=== PATIENT | male | born 1940 | race Caucasian/White ===

== ENCOUNTER 2016-07-12 19:30 | Inpatient (IN) | payer OTHER, MEDICARE ==
[~2016-07-12] VITALS: Ht 175.3 cm; Wt 63.6 kg
[2016-07-12] VITALS (14 sets, daily range): BP systolic 78–216; BP diastolic 50–109; PULSE 105–147; RESP 15–20; TEMP 99.7; O2SAT 89–100
[~2016-07-12 19:30] MED LIST: AMLO10 PO; ATOR20TA15 PO; CLOP75TA PO; ENOX40P SQ; HYDR-3516 PO; MISC-163; NOVOLOGP2 SQ; NYST1000 SWISH-SWAL; TAMS5CAP PO; WALKER WHEELS/F1 MIS
[2016-07-12] MEDS ORDERED: SODIUM CHLOR 0.9% 1000 ML INJ 1,000 ML IV ONE ×4 (20:00→22:45)
[2016-07-12] MEDS ORDERED: VANCOMYCIN INJ 1,000 MG in SODIUM CHLOR 0.9% 250 ML INJ 250 ML IV ONE (20:00)
[2016-07-12] MEDS ORDERED: CEFEPIME INJ 2,000 MG in SODIUM CHLORIDE 0.9% INJ 100 ML IV ONE (20:00)
--- NOTE | 2016-07-12 21:08 | RADRPT ---
EXAM DATE/TIME: 07/12/2016 20:23 [facility] COMPARISON: CHEST SINGLE AP, May 26, 2016, 14:49. INDICATIONS : Cough. MEDICAL HISTORY : None. SURGICAL HISTORY : CABG. ENCOUNTER: Initial ACUITY: 1 day PAIN SCORE: Non-responsive. LOCATION: Bilateral chest FINDINGS: Postop changes of CABG. Calcified granulomata in the right lung. No effusion. No pneumothorax. No foc al consolidation. CONCLUSION: 1. Postoperative CABG. Remote granulomatous disease. No effusion or pneumothorax. Tony Galloway MD on July 12, 2016 at 21:06 Board Certified Radiologist. This report was verified electronically.
--- NOTE | 2016-07-12 21:13 | RADRPT ---
EXAM DATE/TIME: 07/12/2016 20:17 [facility] COMPARISON: No previous studies available for comparison. INDICATIONS : Left pelvic pain, unknown accident. MEDICAL HISTORY : None. SURGICAL HISTORY : Left hip replacement. ENCOUNTER: Initial ACUITY: 1 day PAIN SCORE: Non-responsive. LOCATION: Left pelvis. FINDINGS: A single frontal view of the pelvis demonstrates no evidence of fracture. There is previous left hip replacement. No dislocation. CONCLUSION: 1. Postoperative left total hip replacement. Osteopenia. No acute bony abnormalities. Tony Galloway MD on July 12, 2016 at 21:11 Board Certified Radiologist. This report was verified electronically.
[2016-07-12] MEDS ORDERED: SODIUM CHLORIDE 0.9% FLUSH 5 ML FLUSH IVF PRN ×2 (21:15→22:45)
[2016-07-12] MEDS ORDERED: DILTIAZEM HCL 25 MG/5 ML VIAL IV PUSH ONE (21:15)
[2016-07-12] MEDS ORDERED: DILTIAZEM INJ 125 MG in SODIUM CHLORIDE 0.9% INJ 100 ML IV SCH (21:15)
--- NOTE | 2016-07-12 21:16 | PD ---
HPI Chief Complaint: Skin Problem Time Seen by Provider: 19:58 Travel History International Travel<30 days: No Contact w/Intl Traveler<30days: No Traveled to known affect area: No History of Present Illness HPI 76-year-old male presents to the emergency Department from home by EMS transport for generalized weakness progressively worsening decubitus ulcers and wound at prior left hip replacement site. No report of fever or chills. Poor oral intake. Patient reportedly had a hip fracture 05/08/16 with hip repair and was also identified with that hospitalization have acute renal failure patient improved postoperatively with normalization of renal function and was discharged to a rehabilitation facility where he stayed for prostate one month but reportedly due to insurance issues was not able to stay at the rehabilitation facility any longer and was discharged home. Patient was discharged home and has had no in office post hospitalization or post rehabilitation evaluation by his managing physicians. Patient has had a home health nurse managing with wound care the pressure sores affecting both heels left hip and left elbow. Home health nurses noted that the pressure sores are not improving with current therapy and large eschar are noted at the sites with focal petechia and purpura at the left hip postsurgical site. Patient is a diabetic, hypertension, CAD with 6 vessel CABG, and dementia. At time of discharge from the hospital patient weight was 72 kg. PFSH Past Medical History Hx Anticoagulant Therapy: Yes Arthritis: No Asthma: No Autoimmune Disease: No Blood Disorders: No Anxiety: No Depression: No Heart Rhythm Problems: No Cancer: No Cardiac Catheterization: Yes Cardiovascular Problems: Yes (CAD) High Cholesterol: No Chemotherapy: No Chest Pain: No Congestive Heart Failure: No COPD: No Cerebrovascular Accident: Yes (TIA) Dementia: Yes Diabetes: Yes Patient Takes Glucophage: No Diminished Hearing: Yes Endocrine: No GERD: No Glaucoma: No Genitourinary: No Headaches: No Hepatitis: No Hiatal Hernia: No Heparin Induced Thrombocytopen: No Hypertension: Yes Immune Disorder: No Kidney Stones: No Musculoskeletal: Yes (LEFT HIP SURGERY) Neurologic: Yes Psychiatric: No Reproductive: No Respiratory: No Integumentary: Yes (FAILED OUTPATIENT WOUND CARE) Myocardial Infarction: No Radiation Therapy: No Renal Failure: No Seizures: No Sickle Cell Disease: No Sleep Apnea: No Thyroid Disease: No Ulcer: No Past Surgical History Abdominal Surgery: No AICD: No Cardiac Surgery: Yes (cabg x 6 vessel 2003) Coronary Artery Bypass Graft: Yes Ear Surgery: No Endocrine Surgery: No Eye Surgery: No Genitourinary Surgery: No Gynecologic Surgery: No Joint Replacement: No Oral Surgery: Yes Pacemaker: No Thoracic Surgery: Yes Other Surgery: Yes (vascular left groin 2016 ) Social History Alcohol Use: No Tobacco Use: No Substance Use: No Allergies-Medications (Allergen,Severity, Reaction): Coded Allergies: [place] Cheese (Verified Allergy, Unknown, 05/08/16) Reported Meds & Prescriptions Reported Meds & Active Scripts Active Novolog Inj (Insulin Aspart) 1,000 Unit/10 Ml Vial 1-9 Units SQ ACHS Max dose at bedtime:( )units; sugars less than 70,(0)units; sugars 150-199,(1) unit; sugars 200-249,(3) units; sugars 250-299,(5) units; sugars 300-349,(7) units; sugars greater than 349,(9) units Nystatin Liq 100,000 unit/ml Susp 5 Ml SWISH-SWAL QID Norvasc (Amlodipine Besylate) 10 Mg Tab 5 Mg PO DAILY Hydrocodone-Acetaminophen 5-325 mg Tab 1 Tab PO Q4H PRN Lovenox Inj (Enoxaparin Sodium) 40 Mg/0.4 Ml Syr 40 Mg SQ Q24H Walker with Front Wheels (Device) 1 Mis Mis 1 Ea .ROUTE DIRECTED 3-in-1 Bedside Toilet (Device) 1 Mis Mis 1 Ea .ROUTE DIRECTED Reported Flomax (Tamsulosin HCl) 0.4 Mg Cap 0.4 Mg PO HS Clopidogrel (Clopidogrel Bisulfate) 75 Mg Tab 75 Mg PO DAILY Atorvastatin (Atorvastatin Calcium) 20 Mg Tab 20 Mg PO DAILY Review of Systems ROS Limitations: Clinical Condition, Hearing Impaired, Poor Historian, Other: Except as stated in HPI: all other systems reviewed are Neg General / Constitutional: No: Fever HENT: No: Congestion Cardiovascular: No: Chest Pain or Discomfort Respiratory: No: Shortness of Breath Gastrointestinal: No: Vomiting, Diarrhea Genitourinary: Positive: Decreased Urinary Output Musculoskeletal: Positive: Limited ROM (left hip), Pain (left LE), No: Edema Skin: Positive Rash Neurologic: Positive: Weakness Psychiatric: No: Anxiety Hematologic/Lymphatic: Positive: Easy Bruising Physical Exam Narrative GENERAL: Ill-appearing emaciated male with scaphoid abdomen and no respiratory distress. SKIN: Warm and dry. Bilateral heel pressure sores with large eschar, left elbow decubitus with large eschar, left hip at postoperative surgical site scar with petechial and purpuric changes with skin breakdown and serous sanguinous issues. HEAD: Normocephalic. EYES: No scleral icterus. No injection or drainage. NECK: Supple, trachea midline. No JVD or lymphadenopathy. CARDIOVASCULAR: Regular rate and rhythm without murmurs, gallops, or rubs. RESPIRATORY: Breath sounds equal bilaterally. No accessory muscle use. GASTROINTESTINAL: Abdomen soft, scaphoid, non-tender, nondistended. MUSCULOSKELETAL: No cyanosis, or edema. Left lower extremity held contractured in hip flexion and external rotation with abduction with knee flexion with palpable dorsalis pedis pulse BACK: Nontender without obvious deformity. No CVA tenderness. Data Data Last Documented VS Vital Signs Date Time Temp Pulse Resp B/P Pulse Ox O2 Delivery O2 Flow Rate FiO2 07/12/16 22:31 105 18 123/59 100 Non-Rebreather 15 07/12/16 20:03 99.7 Orders Electrocardiogram (07/12/16 19:58) Complete Blood Count With Diff (07/12/16 19:58) Comprehensive Metabolic Panel (07/12/16 19:58) Prothrombin Time / Inr (Pt) (07/12/16 19:58) Act Partial Throm Time (Ptt) (07/12/16 19:58) Lactic Acid Sepsis Protocol (07/12/16 19:58) Magnesium (Mg) (07/12/16 19:58) Ckmb (Isoenzyme) Profile (07/12/16 19:58) Troponin I (07/12/16 19:58) Urinalysis - C+S If Indicated (07/12/16 19:58) Blood Culture (07/12/16 19:58) Chest, Single Ap (07/12/16 19:58) Blood Glucose (07/12/16 19:58) Ecg Monitoring (07/12/16 19:58) Iv Access Insert/Monitor (07/12/16 19:58) Oximetry (07/12/16 19:58) Oxygen Administration (07/12/16 19:58) Sodium Chlor 0.9% 1000 Ml Inj (Ns 1000 M (07/12/16 20:00) Sodium Chlor 0.9% 1000 Ml Inj (Ns 1000 M (07/12/16 20:00) Urinary Catheter - Remove (07/12/16 19:58) Urinary Catheter Insert/Apply (07/12/16 19:58) Pelvis, Ap Only (Routine) (07/12/16 ) Cefepime Inj (Maxipime Inj) (07/12/16 20:00) Vancomycin Inj (Vancomycin Inj) (07/12/16 20:00) Blood Pressure (07/12/16 21:04) Vital Signs (07/12/16 21:04) Diltiazem Inj (Cardizem Inj) (07/12/16 21:15) Diltiazem Inj (Cardizem Inj) (07/12/16 21:15) Sodium Chloride 0.9% Flush (Ns Flush) (07/12/16 21:15) CKMB (07/12/16 20:55) CKMB% (07/12/16 20:55) Sodium Chlor 0.9% 1000 Ml Inj (Ns 1000 M (07/12/16 22:15) Magnesium Sulfate 1 Gm Premix (Magnesium (07/12/16 22:15) Protein Corrected Calcium(Pcc) (07/12/16 22:11) Sodium Chlor 0.9% 1000 Ml Inj (Ns 1000 M (07/12/16 22:45) Labs Laboratory Tests Test 07/12/16 20:55 White Blood Count 17.6 TH/MM3 Red Blood Count 3.34 MIL/MM3 Hemoglobin 9.7 GM/DL Hematocrit 29.3 % Mean Corpuscular Volume 87.8 FL Mean Corpuscular Hemoglobin 28.9 PG Mean Corpuscular Hemoglobin 33.0 % Concent Red Cell Distribution Width 16.9 % Platelet Count 401 TH/MM3 Mean Platelet Volume 9.1 FL Neutrophils (%) (Auto) 81.0 % Lymphocytes (%) (Auto) 12.6 % Monocytes (%) (Auto) 6.2 % Eosinophils (%) (Auto) 0.1 % Basophils (%) (Auto) 0.1 % Neutrophils # (Auto) 14.3 TH/MM3 Lymphocytes # (Auto) 2.2 TH/MM3 Monocytes # (Auto) 1.1 TH/MM3 Eosinophils # (Auto) 0.0 TH/MM3 Basophils # (Auto) 0.0 TH/MM3 CBC Comment DIFF FINAL Differential Comment Prothrombin Time 12.8 SEC Prothromb Time International 1.2 RATIO Ratio Activated Partial 30.1 SEC Thromboplast Time Sodium Level 135 MEQ/L Potassium Level 3.6 MEQ/L Chloride Level 103 MEQ/L Carbon Dioxide Level 19.1 MEQ/L Anion Gap 13 MEQ/L Blood Urea Nitrogen 30 MG/DL Creatinine 1.85 MG/DL Estimat Glomerular Filtration 36 ML/MIN Rate Random Glucose 118 MG/DL Lactic Acid Level 1.6 mmol/L Calcium Level 7.7 MG/DL Protein Corrected Calcium 8.3 MG/DL Magnesium Level 1.3 MG/DL Total Bilirubin 0.3 MG/DL Aspartate Amino Transf 93 U/L (AST/SGOT) Alanine Aminotransferase 54 U/L (ALT/SGPT) Alkaline Phosphatase 103 U/L Total Creatine Kinase 734 U/L Troponin I 0.04 NG/ML Total Protein 6.0 GM/DL Albumin 1.8 GM/DL MDM Medical Decision Making Medical Screen Exam Complete: Yes Emergency Medical Condition: Yes Medical Record Reviewed: Yes Differential Diagnosis Sepsis, failure to thrive, wound infection, new-onset atrial fibrillation, CAD, UTI Narrative Course patient with spouse/caregiver/surrogate at bedside --- per patient he wants to be a full code Sepsis Criteria SIRS Criteria (2 or more): Heart rate over 90, WBC > 38491, < 4000 or > 10% bands Sepsis Criteria (SIRS+source): Infect source susp/known (left hip cellulitis; poss UTI) Severe Sepsis (+one): Hypotension, Acute Oliguria/Renal Failure Physician Communication Physician Communication discussed with Dr iSms Diagnosis Primary Impression: Sepsis affecting skin Additional Impressions: Sepsis associated hypotension New onset a-fib Renal insufficiency Leucocytosis Diabetic foot infection Admitting Information Admitting Physician Requests: Admit Teresa Li MD Jul 12, 2016 21:16
[2016-07-12 21:49] LABS: AUTOMATED NEUTROPHIL # 14.3 TH/MM3 (1.8-7.7); BASOPHIL % 0.1 % (0.0-2.0); EOSINOPHIL % 0.1 % (0.0-4.0); HEMATOCRIT 29.3 % (39.0-51.0); HEMO FLAGS DIFF FINAL; LYMPH % 12.6 % (9.0-44.0); LYMPHOCYTE # 2.2 TH/MM3 (1.0-4.8); MEAN CELL VOLUME 87.8 FL (80.0-100.0); MEAN CORPUSCULAR HEMOGLOBIN 28.9 PG (27.0-34.0); MONO % 6.2 % (0.0-8.0); PLATELET COUNT 401 TH/MM3 (150-450); RED BLOOD COUNT 3.34 MIL/MM3 (4.50-5.90); RED CELL DISTRIBUTION WIDTH 16.9 % (11.6-17.2); WHITE BLOOD COUNT 17.6 TH/MM3 (4.0-11.0)
[2016-07-12 21:55] LABS: APTT (PATIENT) 30.1 SEC (24.3-30.1); INTERNATIONAL NORMALIZED RATIO 1.2 RATIO; PROTHROMBIN TIME - PATIENT 12.8 SEC (9.8-11.6)
[2016-07-12 21:59] LABS: BICARBONATE 19.1 MEQ/L (21.0-32.0); MAGNESIUM 1.3 MG/DL (1.5-2.5); POTASSIUM 3.6 MEQ/L (3.5-5.1)
[2016-07-12 22:04] LABS: TOTAL BILIRUBIN ADULT 0.3 MG/DL (0.2-1.0)
[2016-07-12] MEDS ORDERED: MAGNESIUM SULFATE 1 GM PREMIX 100 ML IV ONE (22:15)
[2016-07-12 22:34] LABS: CALCIUM-PROTEIN CORRECTED 8.3 MG/DL (8.5-10.1)
[2016-07-12 23:07] LABS: BACTERIA, URINE FEW /hpf; BLOOD, URINE MOD (NEG); COMMENT (UR) CATH-CULTURE IND; CULTURE IF INDICATED CATH CULTURE IND; GLUCOSE,URINE NEG (NEG); KETONE, URINE NEG (NEG); MUCUS URINE FEW /lpf (OCC); NITRITE,URINE POS (NEG); PH, URINE 5.5 (5.0-8.5); URINE COLOR YELLOW (YELLW/STRAW)
[2016-07-13] VITALS (18 sets, daily range): BP systolic 89–130; BP diastolic 49–89; PULSE 101–132; RESP 16–22; O2SAT 95–100
[2016-07-13] MEDS ORDERED: ZOLPIDEM TARTRATE 5 MG TAB PO PRN (00:30)
[2016-07-13] MEDS ORDERED: MISCELLANEOUS NURSING INFORMATION XX SCH (00:30)
[2016-07-13] MEDS ORDERED: ACETAMINOPHEN 325 MG TAB PO PRN (00:30)
[2016-07-13] MEDS ORDERED: SODIUM CHLORIDE 0.9% FLUSH 5 ML FLUSH IV FLUSH PRN (00:30)
[2016-07-13] MEDS ORDERED: CHLORHEXIDINE GLUCONATE 2 % 1 PACK (2 CLOTHS) TOP PRN (00:30)
[2016-07-13] MEDS: SODIUM CHLOR 0.9% 1000 ML INJ 1,000 ML IV SCH ×2 (00:49→17:20)
[2016-07-13] MEDS: CHLORHEXIDINE GLUCONATE 2 % 1 PACK (2 CLOTHS) TOP SCH (03:51)
--- NOTE | 2016-07-13 03:53 | HHI.HP ---
HPI Service Critical Care Medicine Primary Care Physician Kimberly Branch MD Admission Diagnosis sepsis; dibaetic foot ulcer; new onset AFRVR; DAMIAN Diagnosis: Travel History International Travel<30 Days: No Contact w/Intl Traveler <30 Da: No Traveled to Known Affected Are: No History of Present Illness 76-year-old male with diabetes, hypertension, CAD with 6 vessel CABG, and dementiapresents to the emergency Department from home by EMS transport for generalized weakness progressively worsening decubitus ulcers and wound at prior left hip replacement site. No report of fever or chills. Also admits poor oral intake. Patient had a hip fracture 05/08/16 with hip repair and was also identified with that hospitalization have acute renal failure. He improved postoperatively with normalization of renal function and was discharged to a rehabilitation facility where he stayed for one month however due to insurance issues was not able to stay any longer and was discharged home. Patient has had a home health nurse managing with wound care the pressure sores affecting both heels left hip and left elbow. Home health nurses noted that the pressure sores are not improving with current therapy and large eschar are noted at the sites with focal petechia and purpura at the left hip postsurgical site. Review of Systems Constitutional: DENIES: Diaphoretic episodes, Fatigue, Fever, Weight gain, Weight loss, Chills, Dizziness, Change in appetite, Night Sweats Endocrine: DENIES: Heat/cold intolerance, Polydipsia, Polyuria, Polyphagia Eyes: DENIES: Blurred vision, Diplopia, Eye inflammation, Eye pain, Vision loss , Photosensitivity, Double Vision Ears, nose, mouth, throat: DENIES: Tinnitus, Hearing loss, Vertigo, Nasal discharge, Oral lesions, Throat pain, Hoarseness, Ear Pain, Running Nose, Epistaxis, Sinus Pain, Toothache, Odynophagia Respiratory: DENIES: Apneas, Cough, Snoring, Wheezing, Hemoptysis, Sputum production, Shortness of breath Cardiovascular: DENIES: Chest pain, Palpitations, Syncope, Dyspnea on Exertion , PND, Lower Extremity Edema, Orthopnea, Claudication Gastrointestinal: DENIES: Abdominal pain, Black stools, Bloody stools, Constipation, Diarrhea, Nausea, Vomiting, Difficulty Swallowing, Anorexia Genitourinary: DENIES: Sexual dysfunction, Urinary frequency, Urinary incontinence, Urgency, Hematuria, Dysuria, Nocturia, Penile Discharge, Testicular Pain, Testicular Swelling Musculoskeletal: DENIES: Joint pain, Muscle aches, Stiffness, Joint Swelling, Back pain, Neck pain Integumentary: DENIES: Abnormal pigmentation, Nail changes, Pruritus, Rash Hematologic/lymphatic: DENIES: Bruising, Lymphadenopathy Immunologic/allergic: DENIES: Eczema, Urticaria Neurologic: DENIES: Abnormal gait, Headache, Localized weakness, Paresthesias, Seizures, Speech Problems, Tremor, Poor Balance Psychiatric: DENIES: Anxiety, Confusion, Mood changes, Depression, Hallucinations, Agitation, Suicidal Ideation, Homicidal Ideation, Delusions Past Family Social History Allergies: Coded Allergies: [place] Cheese (Verified Allergy, Unknown, 05/08/16) Past Medical History diabetes, hypertension, CAD with 6 vessel CABG, and dementia Past Surgical History 6 vessel CABG hip replacement Reported Medications Novolog Inj (Insulin Aspart) 1,000 Unit/10 Ml Vial 1-9 Units SQ ACHS Max dose at bedtime:( )units; sugars less than 70,(0)units; sugars 150-199,(1) unit; sugars 200-249,(3) units; sugars 250-299,(5) units; sugars 300-349,(7) units; sugars greater than 349,(9) units Nystatin Liq 100,000 unit/ml Susp 5 Ml SWISH-SWAL QID Norvasc (Amlodipine Besylate) 10 Mg Tab 5 Mg PO DAILY Hydrocodone-Acetaminophen 5-325 mg Tab 1 Tab PO Q4H PRN Lovenox Inj (Enoxaparin Sodium) 40 Mg/0.4 Ml Syr 40 Mg SQ Q24H Walker with Front Wheels (Device) 1 Mis Mis 1 Ea .ROUTE DIRECTED 3-in-1 Bedside Toilet (Device) 1 Mis Mis 1 Ea .ROUTE DIRECTED Flomax (Tamsulosin HCl) 0.4 Mg Cap 0.4 Mg PO HS Clopidogrel (Clopidogrel Bisulfate) 75 Mg Tab 75 Mg PO DAILY Atorvastatin (Atorvastatin Calcium) 20 Mg Tab 20 Mg PO DAILY Active Ordered Medications Current Medications Medications (Trade) Dose Ordered Sig/[place] Route PRN Reason Start Time Stop Time Status Last Admin Dose Admin IV Flush 2 ml 2 ml BID IVF 07/13/16 09:00 Sodium Chloride (NS 1000 ml Inj) 1,000 ml @ 84 mls/hr [id number] IV 07/13/16 00:16 07/13/16 00:49 IV Flush (NS Flush) 2 ml UNSCH PRN IV FLUSH FLUSH AFTER USING IV ACCESS 07/13/16 00:30 IV Flush (NS Flush) 2 ml BID IV FLUSH 07/13/16 09:00 Acetaminophen (Tylenol) 650 mg Q6H PRN PO PAIN 1-10 AND/OR FEVER >101F 07/13/16 00:30 Morphine Sulfate (Morphine Inj) 2 mg Q2H PRN IV PAIN SCALE 6 TO 10 07/13/16 00:30 Famotidine (Pepcid) 10 mg Q12HR PO 07/13/16 09:00 Docusate Sodium (Colace) 100 mg BID PO 07/13/16 09:00 Zolpidem Tartrate (Ambien) 5 mg HS PRN PO INSOMNIA 07/13/16 00:30 Heparin Sodium (Porcine) (Heparin Inj) 5,000 units Q8HR SQ 07/13/16 06:00 Miscellaneous Information 1 [id number] XX 07/13/16 00:30 Chlorhexidine Gluconate (Chlorhexidine 2% Cloth) 3 pack Taper DAILY@04 TOP 07/13/16 04:00 07/09/17 03:59 Chlorhexidine Gluconate 3 pack 3 pack UNSCH PRN TOP HYGIENIC CARE 07/13/16 00:30 Diltiazem HCl/ Sodium Chloride (Cardizem Inj/NS Inj) 125 ml @ 0 mls/hr TITRATE IV 07/13/16 00:30 07/13/16 04:16 Amlodipine Besylate (Norvasc) 5 mg DAILY PO 07/13/16 09:00 Atorvastatin Calcium (Lipitor) 20 mg DAILY PO 07/13/16 09:00 Clopidogrel Bisulfate (Plavix) 75 mg DAILY PO 07/13/16 09:00 Acetaminophen/ Hydrocodone Bitart ([place] 5-325 Mg) 1 tab Q4H PRN PO PAIN LESS THAN 5 ON SCALE 07/13/16 04:45 Nystatin (Mycostatin Liq) 5 ml QID SWISH-SWAL 07/13/16 09:00 Tamsulosin HCl (Flomax) 0.4 mg HS PO 07/13/16 21:00 Family History noncontributory Social History negative x 3 Physical Exam Vital Signs Vital Signs Date Time Temp Pulse Resp B/P Pulse Ox O2 Delivery O2 Flow Rate FiO2 07/13/16 03:17 114 16 100/58 100 Room Air 07/13/16 02:10 120 18 104/64 100 Room Air 07/13/16 01:00 110 20 125/72 100 Room Air 07/13/16 00:13 124 18 97/55 95 Room Air 07/12/16 23:55 90 High Flow Nasal Cannula 30.00 100 07/12/16 23:35 89 Non-Rebreather 07/12/16 23:34 115 18 108/55 95 Room Air 07/12/16 23:17 116 18 96/59 100 Room Air 07/12/16 22:31 105 18 123/59 100 Non-Rebreather 15 07/12/16 22:15 129 15 106/59 100 Room Air 07/12/16 21:59 120 20 98/53 100 Room Air 07/12/16 21:45 120 16 88/52 100 Room Air 07/12/16 21:40 130 07/12/16 21:30 123 07/12/16 21:28 147 18 159/66 100 Room Air 07/12/16 21:12 132 18 98/57 100 Room Air 07/12/16 21:00 135 15 109/67 100 Room Air 07/12/16 20:36 96 Room Air 07/12/16 20:03 99.7 141 18 78/50 95 Room Air Physical Exam GENERAL: Well-nourished, well-developed patient. SKIN: Warm and dry. HEAD: Normocephalic. EYES: No scleral icterus. No injection or drainage. NECK: Supple, trachea midline. No JVD or lymphadenopathy. CARDIOVASCULAR: Regular rate and rhythm without murmurs, gallops, or rubs. RESPIRATORY: Breath sounds equal bilaterally. No accessory muscle use. GASTROINTESTINAL: Abdomen soft, non-tender, nondistended. MUSCULOSKELETAL: No cyanosis, or edema. BACK: Nontender without obvious deformity. No CVA tenderness. Laboratory Laboratory Tests Test 07/12/16 07/12/16 07/13/16 20:55 22:35 01:00 White Blood Count 17.6 Red Blood Count 3.34 Hemoglobin 9.7 Hematocrit 29.3 Mean Corpuscular Volume 87.8 Mean Corpuscular Hemoglobin 28.9 Mean Corpuscular Hemoglobin 33.0 Concent Red Cell Distribution Width 16.9 Platelet Count 401 Mean Platelet Volume 9.1 Neutrophils (%) (Auto) 81.0 Lymphocytes (%) (Auto) 12.6 Monocytes (%) (Auto) 6.2 Eosinophils (%) (Auto) 0.1 Basophils (%) (Auto) 0.1 Neutrophils # (Auto) 14.3 Lymphocytes # (Auto) 2.2 Monocytes # (Auto) 1.1 Eosinophils # (Auto) 0.0 Basophils # (Auto) 0.0 CBC Comment DIFF FINAL Differential Comment Prothrombin Time 12.8 Prothromb Time International 1.2 Ratio Activated Partial 30.1 Thromboplast Time Sodium Level 135 Potassium Level 3.6 Chloride Level 103 Carbon Dioxide Level 19.1 Anion Gap 13 Blood Urea Nitrogen 30 Creatinine 1.85 Estimat Glomerular Filtration 36 Rate Random Glucose 118 Lactic Acid Level 1.6 Calcium Level 7.7 Protein Corrected Calcium 8.3 Magnesium Level 1.3 Total Bilirubin 0.3 Aspartate Amino Transf 93 (AST/SGOT) Alanine Aminotransferase 54 (ALT/SGPT) Alkaline Phosphatase 103 Total Creatine Kinase 734 Creatine Kinase MB 9.0 Creatine Kinase MB % 1.2 Troponin I 0.04 0.04 Total Protein 6.0 Albumin 1.8 Urine Color YELLOW Urine Turbidity CLOUDY Urine pH 5.5 Urine Specific [place] 1.017 Urine Protein 30 Urine Glucose (UA) NEG Urine Ketones NEG Urine Occult Blood MOD Urine Nitrite POS Urine Bilirubin NEG Urine Urobilinogen LESS THAN 2.0 Urine Leukocyte Esterase LARGE Urine RBC Urine WBC Urine WBC Clumps MANY Urine Amorphous Sediment RARE Urine Bacteria FEW Urine Mucus FEW Microscopic Urinalysis Comment CATH-CULTURE IND Date/Time Procedure Status Source Growth 07/12/16 22:35 Urine Culture Received Urine Catheterized Urine Pending 07/12/16 20:50 Gram Stain Received Wound Hip Pending 07/12/16 20:50 Wound Culture Received Wound Hip Pending 07/12/16 20:45 Aerobic Blood Culture Received Blood Peripheral Pending 07/12/16 20:45 Anaerobic Blood Culture Received Blood Peripheral Pending Result Diagram: 07/12/[id number] Imaging Last 24 hours Impressions Chest X-Ray 07/12/161957 Signed Impressions: Service Date/Time: Tuesday, July 12, 2016 20:23 - CONCLUSION: 1. Postoperative CABG. Remote granulomatous disease. No effusion or pneumothorax. Tony Galloway MD Assessment and Plan Problem List: (1) Dementia ICD Code: F03.90 Status: Chronic (2) Type 2 diabetes mellitus ICD Code: E11.9 Status: Chronic (3) Renal insufficiency ICD Code: N28.9 Status: Acute (4) New onset a-fib ICD Code: I48.91 Status: Acute (5) Sepsis affecting skin ICD Code: L02.91 Status: Acute (6) Leucocytosis ICD Code: D72.829 Status: Acute Assessment and Plan A. Fib - Cardizem gtt - transition to p.o. when rate controlled DAMIAN - dehydration - aggressive i.v. fluid resuscitation Wound/Cellulitis - broad spectrum ATB - f/u cultures Dementia - supportive care DM - ISS DVT/GI prophylaxis - Heparin/Pepcid Critical Care: The total critical care time was 35 minutes. Time to perform other separately billable procedures was not included in the critical care time. Ant Sims MD Jul 13, 2016 03:53
[2016-07-13] MEDS: DILTIAZEM INJ 125 MG in SODIUM CHLORIDE 0.9% INJ 100 ML IV SCH (04:16)
[2016-07-13] MEDS ORDERED: DEXTROSE 50% IN WATER 50 ML VIAL(D50) IV PUSH PRN (05:15)
[2016-07-13] MEDS ORDERED: GLUCAGON 1 MG/ML VIAL OTHER PRN (05:15)
[2016-07-13] MEDS ORDERED: Vancomycin Consult Pharmacy 1 EA OTHER SCH (05:15)
[2016-07-13] MEDS ORDERED: PIPERACIL-TAZO 3.375 GM PREMIX 50 ML IV SCH (05:15)
[2016-07-13] MEDS: HEPARIN SODIUM - SQ 10,000 UNITS/ML VIAL SQ SCH ×3 (05:41→22:49)
[2016-07-13] MEDS: PIPERACIL-TAZO 2.25 GM PREMIX 50 ML IV SCH ×3 (05:58→18:12)
[2016-07-13] MEDS: INSULIN ASPART SUPPLEMENTAL SCALE SQ SCH ×4 (07:00→21:00)
[2016-07-13 07:13] LABS: CKMB 6.6 NG/ML (0.5-3.6)
[2016-07-13] MEDS: NYSTATIN SUSP 500,000 U/5 ML CUP SWISH-SWAL SCH ×4 (09:00→21:00)
[2016-07-13] MEDS ORDERED: SODIUM CHLORIDE 0.9% FLUSH 5 ML FLUSH IVF SCH (09:00)
[2016-07-13] MEDS: DOCUSATE SODIUM 100 MG CAP PO SCH ×2 (09:00→22:49)
[2016-07-13] MEDS: SODIUM CHLORIDE 0.9% FLUSH 5 ML FLUSH IV FLUSH SCH ×2 (09:00→22:49)
[2016-07-13] MEDS: FAMOTIDINE 20 MG TAB PO SCH ×2 (09:45→22:49)
[2016-07-13] MEDS: ATORVASTATIN 20 MG TAB PO SCH (09:46)
[2016-07-13] MEDS: CLOPIDOGREL 75 MG TAB PO SCH (09:46)
--- NOTE | 2016-07-13 13:42 | EKG ---
Date Performed: 07/13/2016 Time Performed: 01:12:43 PTAGE: 76 years EKG: ATRIAL FIBRILLATION WITH RAPID VENTRICULAR RESPONSE LOW QRS VOLTAGE IN EXTREMITY LEADS INFE RIOR MYOCARDIAL INFARCTION ABNORMAL ECG Compared to prior tracing no significant change PREVIOUS TRACING : 07/12/2016 20.32 DOCTOR: Marychuy Tovra Interpretating Date/Time 07/13/2016 13:41:07
--- NOTE | 2016-07-13 14:43 | EKG ---
Date Performed: 07/12/2016 Time Performed: 20:32:24 PTAGE: 76 years EKG: ATRIAL FIBRILLATION WITH RAPID VENTRICULAR RESPONSE INFERIOR MYOCARDIAL INFARCTION ABNORMAL ECG Since prior tracing patient has developed atrial fibrillation with rapid v. response. There has been some variation in the ST T wave changes. PREVIOUS TRACING : 05/08/2016 22.32 DOCTOR: Marychuy Tovar Interpretating Date/Time 07/13/2016 14:42:59
--- NOTE | 2016-07-13 15:05 | HHI.PR ---
Subjective Remarks Follow-up for infection, wound, tachycardia and hypotension Blood pressure is better, systolic in the 160s, still borderline tachycardic. Denies any shortness of breath. Denies any significant pain left hip and bilateral heels. Objective Vitals Vital Signs Date Time Temp Pulse Resp B/P Pulse Ox O2 Delivery O2 Flow Rate FiO2 07/13/16 10:28 111/66 07/13/16 10:16 100 21 07/13/16 09:17 110 18 109/58 98 Nasal Cannula 2 07/13/16 06:31 117 18 118/57 99 Room Air 07/13/16 06:29 102 18 96/51 100 Room Air 07/13/16 05:34 120 16 100/71 100 Room Air 07/13/16 05:21 101 16 89/49 99 Room Air 07/13/16 04:58 130 07/13/16 03:17 114 16 100/58 100 Room Air 07/13/16 02:10 120 18 104/64 100 Room Air 07/13/16 01:00 110 20 125/72 100 Room Air 07/13/16 01:00 100 07/13/16 00:13 124 18 97/55 95 Room Air 07/12/16 23:55 90 High Flow Nasal Cannula 30.00 100 07/12/16 23:35 89 Non-Rebreather 07/12/16 23:34 115 18 108/55 95 Room Air 07/12/16 23:17 116 18 96/59 100 Room Air 07/12/16 22:31 105 18 123/59 100 Non-Rebreather 15 07/12/16 22:15 129 15 106/59 100 Room Air 07/12/16 21:59 120 20 98/53 100 Room Air 07/12/16 21:45 120 16 88/52 100 Room Air 07/12/16 21:40 130 07/12/16 21:30 123 07/12/16 21:28 147 18 159/66 100 Room Air 07/12/16 21:12 132 18 98/57 100 Room Air 07/12/16 21:00 135 15 109/67 100 Room Air 07/12/16 20:36 96 Room Air 07/12/16 20:03 99.7 141 18 78/50 95 Room Air I/O 07/12/16 07/12/16 07/12/16 07/13/1631/17 1/31/17 07:00 15:00 23:00 07:00 15:00 23:00 Intake Total 2000 ml 1847 ml Output Total 500 ml Balance 2000 ml 1347 ml Intake IV Total 2000 ml 1847 ml Output Urine Total 500 ml Result Diagram: 07/12/16205407/12/162054 Objective Remarks GENERAL: Not in distress. SKIN: Warm and dry. HEAD: Normocephalic. EYES: No scleral icterus. No injection or drainage. NECK: Supple, trachea midline. No JVD or lymphadenopathy. CARDIOVASCULAR: Tachycardic, regular rhythm, without murmurs, gallops, or rubs. RESPIRATORY: Breath sounds equal bilaterally. No accessory muscle use. GASTROINTESTINAL: Abdomen soft, non-tender, nondistended. MUSCULOSKELETAL: No cyanosis, or edema. Left hip wound with areas that are open ,? Discharge, surrounding erythema, positive necrotic superficial tissue Bilateral heels with necrotic tissue, appears to be dry gangrene, no discharge, no tenderness, mild surrounding erythema. Awake, oriented to self and place, moves extremities. A/P Assessment and Plan This is a 76-year-old male sent for generalized weakness, of note, he had a fracture of the left hip in May, status post ORIF. A. Fib, RVR-on Cardizem drip, transitioned to oral. Continue Plavix. Hypertension-hold Norvasc for now Dyslipidemia-continue statins. Acute renal failure-continue IVF, recheck BMP tomorrow. Sepsis secondary to Left hip and right lateral heel cellulitis versus UTI-wound care, continue Zosyn, follow up cultures, consult podiatry and wound care nurse. Pain control with oral and intravenous narcotics as needed. Follow-up culture results. Sepsis based on leukocytosis, tachycardia and definite source of infection. Previously had UTI, unknown organism. Left hip fracture status post ORIF-status post repair of intertrochanteric distal neck fracture in 05/24/16, possible wound infection, consult orthopedics Dr. Rebolledo who did the surgery. PVD- S/p bypass in his lower extremity. Continue Plavix. Dementia-supportive care Diabetes mellitus sliding scale insulin for now Hypomagnesemia-replace DVT/GI prophylaxis - Heparin/Pepcid Ann Marie Rome MD Jul 13, 2016 15:05
[2016-07-13] MEDS: DILTIAZEM HCL 30 MG TAB PO SCH ×2 (18:40→22:49)
[2016-07-13] MEDS: TAMSULOSIN HCL 0.4 MG CAP PO SCH (22:49)
[2016-07-14] VITALS (13 sets, daily range): BP systolic 87–110; BP diastolic 46–89; PULSE 77–127; RESP 18–28; TEMP 97.4–98; O2SAT 94–100
[2016-07-14] MEDS: SODIUM CHLOR 0.9% 1000 ML INJ 1,000 ML IV SCH ×3 (01:23→22:20)
[2016-07-14] MEDS: PIPERACIL-TAZO 2.25 GM PREMIX 50 ML IV SCH ×3 (02:54→18:33)
[2016-07-14] MEDS: CHLORHEXIDINE GLUCONATE 2 % 1 PACK (2 CLOTHS) TOP SCH (04:00)
[2016-07-14 05:08] LABS: AUTOMATED NEUTROPHIL # 13.3 TH/MM3 (1.8-7.7); BASOPHIL % 0.1 % (0.0-2.0); HEMO FLAGS DIFF FINAL; LYMPH % 7.9 % (9.0-44.0); LYMPHOCYTE # 1.2 TH/MM3 (1.0-4.8); MEAN CORPUSCULAR HEMOGLOBIN 29.1 PG (27.0-34.0); MEAN CORPUSCULAR HGB CONC 32.3 % (32.0-36.0); MONO % 5.4 % (0.0-8.0); NEUT % 86.6 % (16.0-70.0); PLATELET COUNT 338 TH/MM3 (150-450); RED BLOOD COUNT 2.89 MIL/MM3 (4.50-5.90); RED CELL DISTRIBUTION WIDTH 17.4 % (11.6-17.2); WHITE BLOOD COUNT 15.3 TH/MM3 (4.0-11.0)
[2016-07-14 05:30] LABS: ALKALINE PHOSPHATASE 83 U/L (45-117); ALT (GPT) 42 U/L (12-78); ANION GAP 14 MEQ/L (5-15); AST (GOT) 55 U/L (15-37); BLOOD UREA NITROGEN 19 MG/DL (7-18); CHLORIDE 114 MEQ/L (98-107); GLOMERULAR FILTRATION RATE 68 ML/MIN (>89); MAGNESIUM 1.4 MG/DL (1.5-2.5); POTASSIUM 3.9 MEQ/L (3.5-5.1); SODIUM (NA) 141 MEQ/L (136-145); TOTAL BILIRUBIN ADULT 0.4 MG/DL (0.2-1.0)
[2016-07-14] MEDS: HEPARIN SODIUM - SQ 10,000 UNITS/ML VIAL SQ SCH ×3 (05:33→22:03)
[2016-07-14] MEDS: INSULIN ASPART SUPPLEMENTAL SCALE SQ SCH ×4 (05:35→21:00)
[2016-07-14] MEDS: DILTIAZEM INJ 125 MG in SODIUM CHLORIDE 0.9% INJ 100 ML IV SCH (07:00)
[2016-07-14] MEDS: SODIUM CHLORIDE 0.9% FLUSH 5 ML FLUSH IV FLUSH SCH ×2 (09:00→21:00)
[2016-07-14] MEDS: FAMOTIDINE 20 MG TAB PO SCH ×2 (10:17→21:00)
[2016-07-14] MEDS: ATORVASTATIN 20 MG TAB PO SCH (10:17)
[2016-07-14] MEDS: CLOPIDOGREL 75 MG TAB PO SCH (10:17)
[2016-07-14] MEDS: DILTIAZEM HCL 30 MG TAB PO SCH ×4 (10:17→21:56)
[2016-07-14] MEDS: NYSTATIN SUSP 500,000 U/5 ML CUP SWISH-SWAL SCH ×4 (10:17→21:58)
[2016-07-14] MEDS: DOCUSATE SODIUM 100 MG CAP PO SCH ×2 (10:17→21:58)
[2016-07-14] MEDS: MAGNESIUM SULFATE 1 GM PREMIX 100 ML IV SCH ×2 (10:18→11:55)
--- NOTE | 2016-07-14 12:26 | PD.POD.CON ---
Patient Intake Chief Complaint Bilateral heel pressure wounds Consult Requested by Dr. Rome Reason for Consult Treatment for bilateral pressure wounds of heel Primary Care Physician Kimberly Branch MD History of Present Illness 76-year-old male who recently underwent hip fracture repair. Patient went to a shelter facility. Presented to [place] with present bilateral heel pressure wounds with necrotic eschar. He has a contraction of the left leg Coded Allergies: Togolese Cheese (Verified Allergy, Unknown, 05/08/16) Preferred Language to Discuss: Uzbek Barriers to Learning: Auditory Vital Signs Date Time Temp Pulse Resp B/P Pulse Ox O2 Delivery O2 Flow Rate FiO2 07/14/16 10:00 97.7 105 24 100/58 100 07/14/16 07:55 97.4 83 20 87/66 98 07/14/16 03:54 127 07/14/16 03:21 98.0 77 20 91/54 100 07/14/16 01:24 118 20 110/89 97 Nasal Cannula 2 07/13/16 23:33 118 18 110/89 100 Nasal Cannula 2 07/13/16 22:06 115 20 130/82 97 Nasal Cannula 2 07/13/16 21:12 96 Nasal Cannula 2.00 07/13/16 20:50 130 114/76 07/13/16 20:19 125 22 107/65 Nasal Cannula 2 07/13/16 17:21 132 20 117/87 95 Nasal Cannula 2 Pain scale used: 0-10 numeric scale Pain score: 5 Medications Current Medications Sodium Chloride 1,000 ml @ 999 mls/hr BOLUS ONCE IV Last administered on 07/12 22:15; Start 07/12/16 at 20:00; Stop 07/12/16 at 21:00; Status DC Sodium Chloride 1,000 ml @ 999 mls/hr BOLUS ONCE IV Last administered on 07/12 21:01; Start 07/12/16 at 20:00; Stop 07/12/16 at 21:00; Status DC Cefepime HCl 2000 mg/Sodium Chloride 100 ml @ 200 mls/hr ONCE ONCE IV Last administered on 07/12/16 21:36; Start 07/12/16 at 20:00; Stop 07/12/16 at 20:29 ; Status DC Vancomycin HCl 1000 mg/Sodium Chloride 250 ml @ 250 mls/hr ONCE ONCE IV Last administered on 07/12/16 21:01; Start 07/12/16 at 20:00; Stop 07/12/16 at 20:59 ; Status DC Diltiazem HCl/ Sodium Chloride (Cardizem Inj/NS Inj) 125 ml @ 0 mls/hr TITRATE IV Last administered on 07/12/16 21:28; Start 07/12/16 at 21:15; Stop at 00:41; Status DC Diltiazem HCl (Cardizem Inj) 13 mg BOLUS ONCE IV PUSH Last administered on 21:11; Start 07/12/16 at 21:15; Stop 07/12/16 at 21:16; Status DC IV Flush 2 ml 2 ml UNSCH PRN IVF FLUSH AFTER USING IV ACCESS; Start 07/12/16 at 21:15; Stop 07/12/16 at 22:40; Status DC Sodium Chloride 1,000 ml @ 999 mls/hr BOLUS ONCE IV Last administered on 07/12 22:59; Start 07/12/16 at 22:15; Stop 07/12/16 at 23:15; Status DC Magnesium Sulfate/ Dextrose 100 ml @ 100 mls/hr ONCE ONCE IV Last administered on 07/12/16 22:51; Start 07/12/16 at 22:15; Stop 07/12/16 at 23:14 ; Status DC Sodium Chloride (NS 1000 ml Inj) 1,000 ml @ 250 mls/hr Q4H ONCE IV Last administered on 07/12/16 23:19; Start 07/12/16 at 22:45; Stop 07/13/16 at 02:44 ; Status DC IV Flush (NS Flush) 2 ml BID IVF ; Start 07/13/16 at 09:00; Stop 07/13/16 at 09: 00; Status DC IV Flush 2 ml 2 ml UNSCH PRN IVF FLUSH AFTER USING IV ACCESS; Start 07/12/16 at 22:45; Stop 07/13/16 at 00:42; Status DC Sodium Chloride (NS 1000 ml Inj) 1,000 ml @ 84 mls/hr [id number] IV Last administered on 07/14/16 11:56; Start 07/13/16 at 00:16 IV Flush (NS Flush) 2 ml UNSCH PRN IV FLUSH FLUSH AFTER USING IV ACCESS; Start 07/13/16 at 00:30 IV Flush (NS Flush) 2 ml BID IV FLUSH Last administered on 07/14/16 09:00; Start 07/13/16 at 09:00 Acetaminophen (Tylenol) 650 mg Q6H PRN PO PAIN 1-10 AND/OR FEVER >101F; Start 07/13/16 at 00:30 Morphine Sulfate (Morphine Inj) 2 mg Q2H PRN IV PAIN SCALE 6 TO 10; Start 07/13 at 00:30 Famotidine (Pepcid) 10 mg Q12HR PO Last administered on 07/14/16 10:17; Start 07/13/16 at 09:00 Docusate Sodium (Colace) 100 mg BID PO Last administered on 07/14/16 10:17; Start 07/13/16 at 09:00 Zolpidem Tartrate (Ambien) 5 mg HS PRN PO INSOMNIA; Start 07/13/16 at 00:30 Heparin Sodium (Porcine) (Heparin Inj) 5,000 units Q8HR SQ Last administered on 07/14/16 05:33; Start 07/13/16 at 06:00 Miscellaneous Information 1 Q361D XX ; Start 07/13/16 at 00:30 Chlorhexidine Gluconate (Chlorhexidine 2% Cloth) 3 pack Taper DAILY@04 TOP ; Start 07/13/16 at 04:00; Stop 07/09/17 at 03:59 Chlorhexidine Gluconate 3 pack 3 pack UNSCH PRN TOP HYGIENIC CARE; Start at 00:30 Diltiazem HCl/ Sodium Chloride (Cardizem Inj/NS Inj) 125 ml @ 0 mls/hr TITRATE IV Last administered on 07/14/16 07:00; Start 07/13/16 at 00:30 Amlodipine Besylate (Norvasc) 5 mg DAILY PO Last administered on 07/13/16 09: 46; Start 07/13/16 at 09:00; Status Hold Atorvastatin Calcium (Lipitor) 20 mg DAILY PO Last administered on 07/14/16 10: 17; Start 07/13/16 at 09:00 Clopidogrel Bisulfate (Plavix) 75 mg DAILY PO Last administered on 07/14/16 10: 17; Start 07/13/16 at 09:00 Acetaminophen/ Hydrocodone Bitart ([place] 5-325 Mg) 1 tab Q4H PRN PO PAIN LESS THAN 5 ON SCALE; Start 07/13/16 at 04:45 Nystatin (Mycostatin Liq) 5 ml QID SWISH-SWAL Last administered on 07/14/16 10 :17; Start 07/13/16 at 09:00 Tamsulosin HCl 0.4 mg 0.4 mg HS PO Last administered on 07/13/16 22:49; Start 07/13/16 at 21:00 Piperacillin Sod/ Tazobactam Sod 50 ml @ 100 mls/hr Q6H IV ; Start 07/13/16 at 05:15; Status UNV Pharmacy Profile Note (Vancomycin Consult Pharmacy) 0 ml @ 0 mls/hr UNSCH OTHER ; Start 07/13/16 at 05:15 Dextrose (D50w (Vial) Inj) 25 ml UNSCH PRN IV PUSH HYPOGLYCEMIA-SEE COMMENTS; Start 07/13/16 at 05:15 Glucagon (Glucagon Inj) 1 mg UNSCH PRN OTHER HYPOGLYCEMIA-SEE COMMENTS; Start 07/13/16 at 05:15 Insulin Aspart 1 1 ACHS SLIDING SCALE SQ ; Start 07/13/16 at 07:00 Piperacillin Sod/ Tazobactam Sod (Zosyn 2.25 Gm Premix) 50 ml @ 100 mls/hr Q6HR IV Last administered on 07/14/16 05:58; Start 07/13/16 at 06:00 Diltiazem HCl 30 mg 30 mg QID PO Last administered on 07/14/16 10:17; Start at 18:00 Magnesium Sulfate/ Dextrose 100 ml @ 100 mls/hr Q1H IV Last administered on 11:55; Start 07/14/16 at 08:45; Stop 07/14/16 at 10:44; Status DC Vancomycin HCl/ Sodium Chloride (Vancomycin Inj/ NS 250 ml Inj) 250 ml @ 250 mls/hr Q24H IV ; Start 07/14/16 at 10:00 Miscellaneous Information SPECIFIC LAB TO BE DRAWN:VANCOMYCIN TROUGH DATE TO... ONCE ONCE XX ; Start 07/16/16 at 09:45; Stop 07/16/16 at 09:46 Past, Family & Social History Past Medical History PFSH Reviewed: Yes Endocrine: REPORTS HX OF: Diabetes mellitus Musculoskeletal: REPORTS HX OF: Fractures Review of Systems Constitutional: COMPLAINS OF: Pain Musculoskeletal: COMPLAINS OF: Deformaties Exam-Podiatry Constitutional General appearance: comfortable Nutritional status: normal Orientation: alert and oriented x3 Dermatological Exam Skin Temp - Right: Within Normal Limits Skin Texture - Right: Within Normal Limits Skin Elasticity - Right: Within Normal Limits Skin Tugor - Right: Within Normal Limits Hair Growth - Right: Within Normal Limits Pigmentation - Right: Within Normal Limits Skin Temp - Left: Within Normal Limits Skin Texture - Left: Within Normal Limits Skin Elasticity - Left: Within Normal Limits Skin Tugor - Left: Within Normal Limits Hair Growth - Left: Within Normal Limits Pigmentation - Left: Within Normal Limits Ulcers: Location/Measurements Necrotic pressure ulcerations of both heels. No signs of infection or drainage. There is dry necrotic eschar in both heels. No exposed bone, tendon or muscle Vascular/Lymphatic Exam R Dorsails Pedis: Palpable L Dorsails Pedis: Palpable R Posterior Tibial: Palpable L Posterior Tibial: Palpable Neurologic Exam Details Deferred Lab and Radiology Results Laboratory Laboratory Tests Test 07/12/16 07/14/16 20:55 04:41 White Blood Count 17.6 TH/MM3 15.3 TH/MM3 Red Blood Count 3.34 MIL/MM3 2.89 MIL/MM3 Hemoglobin 9.7 GM/DL 8.4 GM/DL Hematocrit 29.3 % 26.0 % Mean Corpuscular Volume 87.8 FL 90.0 FL Mean Corpuscular Hemoglobin 28.9 PG 29.1 PG Mean Corpuscular Hemoglobin 33.0 % 32.3 % Concent Red Cell Distribution Width 16.9 % 17.4 % Platelet Count 401 TH/MM3 338 TH/MM3 Mean Platelet Volume 9.1 FL 9.1 FL Neutrophils (%) (Auto) 81.0 % 86.6 % Lymphocytes (%) (Auto) 12.6 % 7.9 % Monocytes (%) (Auto) 6.2 % 5.4 % Eosinophils (%) (Auto) 0.1 % 0.0 % Basophils (%) (Auto) 0.1 % 0.1 % Neutrophils # (Auto) 14.3 TH/MM3 13.3 TH/MM3 Lymphocytes # (Auto) 2.2 TH/MM3 1.2 TH/MM3 Monocytes # (Auto) 1.1 TH/MM3 0.8 TH/MM3 Eosinophils # (Auto) 0.0 TH/MM3 0.0 TH/MM3 Basophils # (Auto) 0.0 TH/MM3 0.0 TH/MM3 CBC Comment DIFF FINAL DIFF FINAL Differential Comment Laboratory Tests Test 07/12/16 07/13/16 07/13/16 07/14/16 20:55 01:00 06:16 04:41 Sodium Level 135 MEQ/L 141 MEQ/L Potassium Level 3.6 MEQ/L 3.9 MEQ/L Chloride Level 103 MEQ/L 114 MEQ/L Carbon Dioxide Level 19.1 MEQ/L 13.0 MEQ/L Anion Gap 13 MEQ/L 14 MEQ/L Blood Urea Nitrogen 30 MG/DL 19 MG/DL Creatinine 1.85 MG/DL 1.06 MG/DL Estimat Glomerular Filtration 36 ML/MIN 68 ML/MIN Rate Random Glucose 118 MG/DL 111 MG/DL Lactic Acid Level 1.6 mmol/L Calcium Level 7.7 MG/DL 7.6 MG/DL Protein Corrected Calcium 8.3 MG/DL Magnesium Level 1.3 MG/DL 1.4 MG/DL Total Bilirubin 0.3 MG/DL 0.4 MG/DL Aspartate Amino Transf 93 U/L 55 U/L (AST/SGOT) Alanine Aminotransferase 54 U/L 42 U/L (ALT/SGPT) Alkaline Phosphatase 103 U/L 83 U/L Total Creatine Kinase 734 U/L 447 U/L Creatine Kinase MB 9.0 NG/ML 6.6 NG/ML Creatine Kinase MB % 1.2 % 1.5 % Troponin I 0.04 NG/ML 0.04 NG/ML 0.03 NG/ML Total Protein 6.0 GM/DL 5.2 GM/DL Albumin 1.8 GM/DL 1.7 GM/DL Phosphorus Level 3.0 MG/DL Microbiology Date/Time Procedure Status Source Growth 07/12/16 20:30 Aerobic Blood Culture - Preliminary Resulted Blood Peripheral NO GROWTH IN 2 DAYS 07/12/16 20:30 Anaerobic Blood Culture - Preliminary Resulted Blood Peripheral NO GROWTH IN 2 DAYS 07/12/16 20:45 Aerobic Blood Culture - Preliminary Resulted Blood Peripheral NO GROWTH IN 2 DAYS 07/12/16 20:45 Anaerobic Blood Culture - Preliminary Resulted Blood Peripheral NO GROWTH IN 2 DAYS 07/12/16 20:50 Gram Stain - Final Resulted Wound Hip 07/12/16 20:50 Wound Culture Resulted Wound Hip Pending 07/12/16 22:35 Urine Culture - Final Complete Urine Catheterized Urine <10,000 CFU/ML MIXED JAIRO... Radiology Last Impressions Chest X-Ray 07/12/161957 Signed Impressions: Service Date/Time: Tuesday, July 12, 2016 20:23 - CONCLUSION: 1. Postoperative CABG. Remote granulomatous disease. No effusion or pneumothorax. Tony Galloway MD Pelvis X-Ray 07/12/16 0000 Signed Impressions: Service Date/Time: Tuesday, July 12, 2016 20:17 - CONCLUSION: 1. Postoperative left total hip replacement. Osteopenia. No acute bony abnormalities. Tony Galloway MD Assessment/Plan Problem List: (1) PVD (peripheral vascular disease) Status: Chronic (2) Type 2 diabetes mellitus Status: Chronic (3) Non healing left heel wound Status: Acute Additional Plans & Procedures Ordered Santyl to be applied daily to both heel wounds. Offloading heels in bed at all times. We'll follow as needed. Problem Qualifiers (1) Type 2 diabetes mellitus: Qualified Code: E11.51 - Type 2 diabetes mellitus with diabetic peripheral angiopathy without gangrene, without long-term current use of insulin Jose A Restrepo DPM Jul 14, 2016 12:26
[2016-07-14] MEDS: COLLAGENASE OINT 30 GM TUBE TOP SCH (14:00)
--- NOTE | 2016-07-14 14:02 | HHI.PR ---
Subjective Remarks Follow-up for atrial fibrillation and hip 1 Of Cardizem drip, heart rate is better. Leukocytosis is better. Shortness of breath is better. Afebrile. Objective Vitals Vital Signs Date Time Temp Pulse Resp B/P Pulse Ox O2 Delivery O2 Flow Rate FiO2 07/14/16 12:40 100 21 07/14/16 10:00 97.7 105 24 100/58 100 07/14/16 07:55 97.4 83 20 87/66 98 07/14/16 03:54 127 07/14/16 03:21 98.0 77 20 91/54 100 07/14/16 01:24 118 20 110/89 97 Nasal Cannula 2 07/13/16 23:33 118 18 110/89 100 Nasal Cannula 2 07/13/16 22:06 115 20 130/82 97 Nasal Cannula 2 07/13/16 21:12 96 Nasal Cannula 2.00 07/13/16 20:50 130 114/76 07/13/16 20:19 125 22 107/65 Nasal Cannula 2 07/13/16 17:21 132 20 117/87 95 Nasal Cannula 2 I/O 07/13/16 07/13/16 07/13/16 07/14/16 07/14/16 07/14/16 07:00 15:00 23:00 07:00 15:00 23:00 Intake Total 1847 ml 630 ml Output Total 500 ml 900 ml Balance 1347 ml -270 ml Intake Oral 0 ml IV Total 1847 ml 630 ml Output Urine Total 500 ml 900 ml # Voids 0 # Bowel Movements 0 Result Diagram: 07/14/16 04407/14/16440 Objective Remarks GENERAL: Not in distress. SKIN: Warm and dry. HEAD: Normocephalic. EYES: No scleral icterus. No injection or drainage. NECK: Supple, trachea midline. No JVD or lymphadenopathy. CARDIOVASCULAR: Regular rate, irregular rhythm. Without murmurs, gallops, or rubs. RESPIRATORY: Breath sounds equal bilaterally. No accessory muscle use. GASTROINTESTINAL: Abdomen soft, non-tender, nondistended. MUSCULOSKELETAL: No cyanosis, or edema. Left hip wound , no Discharge, surrounding erythema, positive necrotic eschar. Bilateral heels with necrotic eschar, no discharge, no tenderness, mild surrounding erythema. Awake, oriented to self and place, moves extremities. A/P Assessment and Plan This is a 76-year-old male sent for generalized weakness, of note, he had a fracture of the left hip in May, status post ORIF. A. Fib, RVR- off Cardizem drip, continue oral Cardizem. Continue Plavix. Hypertension -continue to hold Norvasc for now Dyslipidemia-continue statins. Acute renal failure- creatinine is better, continue IVF, recheck BMP tomorrow. Sepsis secondary to Left hip and right lateral heel cellulitis versus UTI-wound care, continue Zosyn and vancomycin, follow up cultures, consult podiatry and wound care nurse. Pain control with oral and intravenous narcotics as needed. Follow-up culture results. Sepsis based on leukocytosis, tachycardia and definite source of infection. Previously had UTI, unknown organism. Left hip fracture status post ORIF-status post repair of intertrochanteric distal neck fracture in 05/24/16, possible wound infection, consult orthopedics Dr. Rebolledo who did the surgery. PVD- S/p bypass in his lower extremity. Continue Plavix. Dementia-supportive care Diabetes mellitus sliding scale insulin for now Hypomagnesemia-replace DVT/GI prophylaxis - Heparin/Pepcid Ann Marie Rome MD Jul 14, 2016 14:02
[2016-07-14] MEDS: VANCOMYCIN 1,000 MG/NS 250 ML IV SCH ×2 (16:15)
[2016-07-14] MEDS: TAMSULOSIN HCL 0.4 MG CAP PO SCH (21:57)
[2016-07-15] VITALS (10 sets, daily range): BP systolic 89–112; BP diastolic 50–61; PULSE 78–109; RESP 18–22; TEMP 96.7–99; O2SAT 92–100
[2016-07-15] MEDS: PIPERACIL-TAZO 2.25 GM PREMIX 50 ML IV SCH ×5 (01:00→23:16)
[2016-07-15] MEDS: CHLORHEXIDINE GLUCONATE 2 % 1 PACK (2 CLOTHS) TOP SCH (04:00)
[2016-07-15] MEDS: HEPARIN SODIUM - SQ 10,000 UNITS/ML VIAL SQ SCH ×3 (05:49→23:15)
[2016-07-15] MEDS: DILTIAZEM INJ 125 MG in SODIUM CHLORIDE 0.9% INJ 100 ML IV SCH (05:49)
[2016-07-15] MEDS: INSULIN ASPART SUPPLEMENTAL SCALE SQ SCH ×4 (05:50→22:02)
[2016-07-15] MEDS: SODIUM CHLOR 0.9% 1000 ML INJ 1,000 ML IV SCH ×2 (05:50→16:55)
--- NOTE | 2016-07-15 07:08 | PD.ORT.PN ---
Subjective Subjective Remarks 76yo male known to me sp left bipolar arthroplasty for femoral neck fracture. his procedure was delayed several weeks secondary to renal issues and aspiration pneumonia. Pt. d/c'd to rehab but sent home after ins. coverage . Rest of hx not clear. Pt readmitted recently with diabetic ulcer, generalized decline in health and decubiti including operaive site. He has not had OP f/u. Unclear as to functional status as he has dementia and no family available. Objective Vitals Vital Signs Date Time Temp Pulse Resp B/P Pulse Ox O2 Delivery O2 Flow Rate FiO2 07/15/16 04:10 99.0 78 18 91/53 99 07/15/16 04:00 Nasal Cannula 2.00 07/14/16 23:59 110 07/14/16 23:25 97.5 86 18 94/49 98 07/14/16 21:27 94 Nasal Cannula 2.00 07/14/16 20:27 97.6 100 18 105/46 98 07/14/16 20:05 105 07/14/16 20:00 Nasal Cannula 2.00 07/14/16 16:00 97.4 86 28 97/53 100 07/14/16 12:40 100 21 07/14/16 10:00 97.7 105 24 100/58 100 07/14/16 09:00 123 07/14/16 07:55 97.4 83 20 87/66 98 I/O 07/14/16 07/14/16 07/14/16 07/15/16 07/15/16 07/15/16 07:00 15:00 23:00 07:00 15:00 23:00 Intake Total 630 ml 934 ml 745 ml 891 ml Output Total 900 ml 300 ml 200 ml Balance -270 ml 934 ml 445 ml 691 ml Intake Oral 0 ml 440 ml 100 ml IV Total 630 ml 934 ml 305 ml 791 ml Output Urine Total 900 ml 300 ml 200 ml Stool Total 0 ml # Voids 0 # Bowel Movements 0 0 Result Diagram: 07/14/16 0441 07/14/16 0441 Other Results Microbiology Date/Time Procedure Status Source Growth 07/12/16 22:35 Urine Culture - Final Complete Urine Catheterized Urine <10,000 CFU/ML MIXED JAIRO... 07/12/16 20:50 Gram Stain - Final Resulted Wound Hip 07/12/16 20:50 Wound Culture - Preliminary Resulted S. Aureus Mrsa 07/12/16 20:45 Aerobic Blood Culture - Preliminary Resulted Blood Peripheral NO GROWTH IN 2 DAYS 07/12/16 20:45 Anaerobic Blood Culture - Preliminary Resulted Blood Peripheral NO GROWTH IN 2 DAYS Imaging X-ray pelvis 07/12- post operative changes, no fx or dislocation. There is periacetabular osteopenia similar in appearance to immediate post op view Last 72 hours Impressions Chest X-Ray 07/12/161957 Signed Impressions: Service Date/Time: Tuesday, July 12, 2016 20:23 - CONCLUSION: 1. Postoperative CABG. Remote granulomatous disease. No effusion or pneumothorax. Tony Gallwoay MD Objective Remarks Pt awake, alert, pleasantly confused. He holds his hip flexed at 90 deg. Pain with any attempt at ROM. No erythema or induration. area of blistering around proximal aspect. No calf swelling or palpable tenderness. Neuro unreliable. Assessment & Plan Problem List: (1) PVD (peripheral vascular disease) (2) Non healing left heel wound (3) Type 2 diabetes mellitus (4) Renal insufficiency (5) Diabetic foot infection (6) Sepsis associated hypotension (7) Hx of coronary artery disease (8) HTN (hypertension) (9) Fracture of left hip requiring operative repair Assessment and Plan Although wound appears superficial, the possibility of septic hip concerning. Will see if interventional rads can do aspiration for C&S. If +, surgical management for I&D with possible retention vs removal bipolar hip with Abx spacers. Luke Campuzano MD Jul 15, 2016 07:08
[2016-07-15 07:24] LABS: BICARBONATE 17.7 MEQ/L (21.0-32.0); POTASSIUM 3.4 MEQ/L (3.5-5.1)
[2016-07-15] MEDS: CLOPIDOGREL 75 MG TAB PO SCH ×2 (08:25→09:48)
[2016-07-15] MEDS ORDERED: POTASSIUM CL 40 MEQ/30 ML LIQ UDC PO ONE (08:30)
[2016-07-15] MEDS: COLLAGENASE OINT 30 GM TUBE TOP SCH (09:00)
[2016-07-15] MEDS: SODIUM CHLORIDE 0.9% FLUSH 5 ML FLUSH IV FLUSH SCH ×2 (09:00→20:15)
[2016-07-15] MEDS: POTASSIUM CHLOR 10 MEQ PREMIX 100 ML IV SCH ×3 (09:46→13:29)
[2016-07-15] MEDS: DILTIAZEM HCL 30 MG TAB PO SCH ×2 (09:48→13:00)
[2016-07-15] MEDS: ATORVASTATIN 20 MG TAB PO SCH (09:48)
[2016-07-15] MEDS: NYSTATIN SUSP 500,000 U/5 ML CUP SWISH-SWAL SCH ×4 (09:48→20:15)
[2016-07-15] MEDS: FAMOTIDINE 20 MG TAB PO SCH ×2 (09:48→20:15)
[2016-07-15] MEDS: DOCUSATE SODIUM 100 MG CAP PO SCH ×2 (09:48→20:14)
[2016-07-15] MEDS: VANCOMYCIN 1,000 MG/NS 250 ML IV SCH ×2 (14:49)
--- NOTE | 2016-07-15 15:42 | HHI.PR ---
Subjective Remarks Follow-up for atrial fibrillation, possible septic hip Left hip pain about the same, no shortness of breath, heart rate still tachycardic, irregular. Still on a Cardizem drip. Afebrile. Objective Vitals Vital Signs Date Time Temp Pulse Resp B/P Pulse Ox O2 Delivery O2 Flow Rate FiO2 07/15/16 12:00 96.7 99 20 89/50 100 07/15/16 11:35 96 Nasal Cannula 2.00 07/15/16 08:00 97.6 95 18 108/53 98 07/15/16 04:10 99.0 78 18 91/53 99 07/15/16 04:00 Nasal Cannula 2.00 07/14/16 23:59 110 07/14/16 23:25 97.5 86 18 94/49 98 07/14/16 21:27 94 Nasal Cannula 2.00 07/14/16 20:27 97.6 100 18 105/46 98 07/14/16 20:05 105 07/14/16 20:00 Nasal Cannula 2.00 07/14/16 16:00 97.4 86 28 97/53 100 I/O 07/14/16 07/14/16 07/14/16 07/15/16 07/15/16 07/15/16 06:59 14:59 22:59 06:59 14:59 22:59 Intake Total 630 ml 934 ml 745 ml 891 ml Output Total 900 ml 300 ml 200 ml Balance -270 ml 934 ml 445 ml 691 ml Intake Oral 0 ml 440 ml 100 ml IV Total 630 ml 934 ml 305 ml 791 ml Output Urine Total 900 ml 300 ml 200 ml Stool Total 0 ml # Voids 0 # Bowel Movements 0 0 Result Diagram: 07/14/16 0441 07/15/16 0543 Objective Remarks GENERAL: Not in distress. SKIN: Warm and dry. HEAD: Normocephalic. EYES: No scleral icterus. No injection or drainage. NECK: Supple, trachea midline. No JVD or lymphadenopathy. CARDIOVASCULAR: Tachycardic, irregular rhythm. Without murmurs, gallops, or rubs. RESPIRATORY: Breath sounds equal bilaterally. No accessory muscle use. GASTROINTESTINAL: Abdomen soft, non-tender, nondistended. MUSCULOSKELETAL: No cyanosis, or edema. Left hip wound , no Discharge, surrounding erythema, positive necrotic eschar. Bilateral heels with necrotic eschar, no discharge, no tenderness, mild surrounding erythema. Awake, oriented to self and place, moves extremities. A/P Assessment and Plan This is a 76-year-old male sent for generalized weakness, of note, he had a fracture of the left hip in May, status post ORIF. A. Fib, RVR-restart Cardizem drip, increase oral Cardizem. Continue Plavix. Replace potassium and magnesium. Hypertension -continue to hold Norvasc for now Dyslipidemia-continue statins. Acute renal failure- creatinine is better, continue IVF, recheck BMP again tomorrow. Sepsis secondary to Left hip and right lateral heel cellulitis versus UTI, rule out septic arthritis.-wound care, continue Zosyn and vancomycin, wound culture result showed MRSA, orthopedics following an podiatry. Orthopedics concerned about septic hip. Minor WBC tagged scan or an aspiration for culture. Continue Pain control with oral and intravenous narcotics as needed. Left hip fracture status post ORIF-status post repair of intertrochanteric distal neck fracture in 05/24/16, possible wound infection, orthopedics following as above. PVD- S/p bypass in his lower extremity. Continue Plavix. Dementia-supportive care Diabetes mellitus sliding scale insulin for now Hypomagnesemia-replace Hypokalemia-replaced Hypocalcemia-replaced DVT/GI prophylaxis - Heparin/Pepcid Ann Marie Rome MD Jul 15, 2016 15:42
[2016-07-15] MEDS ORDERED: MAGNESIUM SULFATE 1 GM PREMIX 100 ML IV ONE (15:45)
[2016-07-15] MEDS ORDERED: IOHEXOL 300 MG/ML 100 ML BTL (for Rad CT) OTHER ONE (16:38)
[2016-07-15] MEDS ORDERED: IOHEXOL 350 MG/ML 50 ML BTL (for RAD DIAG) OTHER ONE (16:41)
[2016-07-15] MEDS: DILTIAZEM HCL 60 MG TAB PO SCH ×2 (16:55→20:15)
--- NOTE | 2016-07-15 16:58 | PD.RAD ---
Post Procedure Progress Note Pre Procedure Diagnosis: (1) Sepsis associated hypotension Post Procedure Diagnosis: (1) Sepsis associated hypotension Procedure Date: Jul 15, 2016 Supervising Radiologist: Aniceto Vasquez Proceduralist/Assist: RT Naomi(R)(CV) Anesthesia: Local Plan of Activity Patient to Unit: Nursing Unit Patient Condition: Poor See PACS Report for procedural detail/treatment Drainage Procedure Procedure 1 Side: Left Procedure Type: Aspiration (hip) Fluid Removal (CCs): 1 Fluid Description: Bloody Aniceto Vasquez MD Jul 15, 2016 16:58
--- NOTE | 2016-07-15 17:39 | RADRPT ---
EXAM DATE/TIME: 07/15/2016 15:55 [place] COMPARISON: No previous studies available for comparison. INDICATIONS : Patient with possible left hip infection in need of fluid aspiration. MEDICAL HISTORY : 1.DM 2.HTN 3.CAD 4.Dementia SURGICAL HISTORY : 1.CABG 2.Left hip replacement ENCOUNTER: Initial ACUITY: 3 days PAIN SCORE: Non-responsive FLUORO TIME: 2.6 minutes CONTRAST: 3 cc Omnipaque 350 DEVICE(S): 22 gauge needle was placed into the left hip joint. FLUID: Total volume of0.5 cc of cloudy red fluid was removed. Fluid specimen was submitted to the lab for evaluation. PROCEDURE : 1. Fluoroscopically guided left hip aspiration. The risks, benefits and alternatives to the procedure were explained and verbal and written consent w as obtained. The site was prepped in sterile fashion. Full sterile technique was used, including ca p, mask, sterile gloves and gown and a large sterile sheet. Hand hygiene and 2% chlorhexidine and/or betadine/alcohol prep was utilized per protocol for cutaneous antisepsis. The skin and subcutaneous tissues were infiltrated with local anesthetic solution. The left hip joint pseudocapsule was punctured and no fluid could be returned. 10 cc of sterile water were placed and aspirated and a specimen was sent to the lab for evaluation The patient tolerated the procedure well and there were no complications. CONCLUSION: Uncomplicated aspiration as above. Aniceto Vasquez MD on July 15, 2016 at 17:37 Board Certified Radiologist. This report was verified electronically.
[2016-07-15] MEDS ORDERED: CALCIUM GLUCONATE INJ 1 GM in DEXTROSE 5% IN WATER 100ML INJ 100 ML IV ONE ×2 (18:00)
[2016-07-15] MEDS: TAMSULOSIN HCL 0.4 MG CAP PO SCH (20:15)
[2016-07-16] VITALS (8 sets, daily range): BP systolic 100–126; BP diastolic 58–75; PULSE 69–133; RESP 17–32; TEMP 95.7–97.9; O2SAT 93–96
[2016-07-16] MEDS: CHLORHEXIDINE GLUCONATE 2 % 1 PACK (2 CLOTHS) TOP SCH (04:00)
[2016-07-16] MEDS: SODIUM CHLOR 0.9% 1000 ML INJ 1,000 ML IV SCH ×2 (04:20→14:20)
[2016-07-16] MEDS: HEPARIN SODIUM - SQ 10,000 UNITS/ML VIAL SQ SCH ×3 (05:00→22:30)
[2016-07-16] MEDS: PIPERACIL-TAZO 2.25 GM PREMIX 50 ML IV SCH ×2 (05:00→10:55)
[2016-07-16] MEDS: MORPHINE SULFATE 4 MG/ML INJ IV PRN (05:01)
[2016-07-16] MEDS: INSULIN ASPART SUPPLEMENTAL SCALE SQ SCH ×4 (06:31→22:31)
[2016-07-16 07:09] LABS: AUTOMATED NEUTROPHIL # 9.2 TH/MM3 (1.8-7.7); BASOPHIL % 0.1 % (0.0-2.0); EOSINOPHIL % 0.1 % (0.0-4.0); HEMO FLAGS DIFF FINAL; LYMPH % 9.8 % (9.0-44.0); LYMPHOCYTE # 1.1 TH/MM3 (1.0-4.8); MEAN CELL VOLUME 90.9 FL (80.0-100.0); MEAN CORPUSCULAR HEMOGLOBIN 29.6 PG (27.0-34.0); MEAN CORPUSCULAR HGB CONC 32.5 % (32.0-36.0); MONO % 6.6 % (0.0-8.0); NEUT % 83.4 % (16.0-70.0); PLATELET COUNT 292 TH/MM3 (150-450); RED BLOOD COUNT 2.64 MIL/MM3 (4.50-5.90); RED CELL DISTRIBUTION WIDTH 17.6 % (11.6-17.2)
[2016-07-16 07:12] LABS: BICARBONATE 17.9 MEQ/L (21.0-32.0); MAGNESIUM 1.6 MG/DL (1.5-2.5); POTASSIUM 3.8 MEQ/L (3.5-5.1)
--- NOTE | 2016-07-16 07:43 | PD.ORT.PN ---
Subjective Subjective Remarks 76yo male s/p left bipolar arthroplasty for femoral neck fracture. His procedure was originally delayed several weeks secondary to renal issues and aspiration pneumonia. Pt. d/c'd to rehab but sent home after ins. coverage . Rest of hx not clear. Pt readmitted recently with diabetic ulcer, generalized decline in health and decubiti including operative site. He has not had out patient f/u. Unclear as to functional status as he has dementia and no family available. Pt laying in bed, pleasantly confused. History unreliable from patient. No other complaints noted. Objective Vitals Vital Signs Date Time Temp Pulse Resp B/P Pulse Ox O2 Delivery O2 Flow Rate FiO2 07/16/16 04:15 95.7 105 32 100/58 96 07/16/16 04:00 122 07/16/16 00:00 112 07/15/16 23:40 97.7 90 22 112/57 98 07/15/16 20:40 98 Nasal Cannula 2.00 07/15/16 20:15 Nasal Cannula 2.00 07/15/16 20:00 100 07/15/16 19:44 98.0 93 22 107/61 98 07/15/16 16:00 97.6 99 20 98/51 92 07/15/16 12:00 96.7 99 20 89/50 100 07/15/16 11:35 96 Nasal Cannula 2.00 07/15/16 08:00 97.6 95 18 108/53 98 07/15/16 08:00 Nasal Cannula 2.00 07/15/16 07:54 109 I/O 07/15/16 07/15/16 07/15/16 07/16/16 07/16/16 07/16/16 07:00 15:00 23:00 07:00 15:00 23:00 Intake Total 891 ml 1149 ml 938 ml 1022 ml Output Total 200 ml 475 ml 100 ml 100 ml Balance 691 ml 674 ml 838 ml 922 ml Intake Oral 100 ml 120 ml 240 ml 0 ml IV Total 791 ml 1029 ml 698 ml 1022 ml Output Urine Total 200 ml 475 ml 100 ml 100 ml Stool Total 0 ml # Bowel Movements 2 2 0 Result Diagram: 07/16/16 0535 07/16/16 0535 Imaging Last 48 hours Impressions Hip Aspiration/Injection 07/15/16 0000 Signed Impressions: Service Date/Time: July 15:55 - CONCLUSION: Uncomplicated aspiration as above. Aniceto Vasquez MD X-ray pelvis 07/12- post operative changes, no fx or dislocation. There is periacetabular osteopenia similar in appearance to immediate post op view Last 72 hours Impressions Chest X-Ray 07/12/16 1958 Signed Impressions: Service Date/Time: Tuesday, July 12, 2016 20:23 - CONCLUSION: 1. Postoperative CABG. Remote granulomatous disease. No effusion or pneumothorax. Tony Galloway MD Objective Remarks LLE: Pt awake, alert, pleasantly confused. He holds his hip flexed at 110 deg. Pain with any attempt at ROM. No erythema or induration. Area of blistering around proximal aspect of incision. No calf swelling or palpable tenderness. Neuro unreliable. Assessment & Plan Problem List: (1) Fracture of left hip requiring operative repair (2) PVD (peripheral vascular disease) (3) Non healing left heel wound (4) Type 2 diabetes mellitus (5) Renal insufficiency (6) Diabetic foot infection (7) Sepsis associated hypotension (8) Hx of coronary artery disease (9) HTN (hypertension) Assessment and Plan Although wound appears superficial, the possibility of septic hip concerning. Awaiting results from interventional radiology aspiration for C&S. If +, surgical management for I&D with possible retention vs removal bipolar hip with Abx spacers. If negative, most likely aggressive range of motion and physical therapy will be initiated. G/S reviewed. Awaiting cultures. Not suspicious for septic hip at this point. Physical therapy consult has been placed. Knee immobilizer has been ordered. Pt is to wear when laying in bed to help left leg stay in extension. Mary Ellen Pike Jul 16, 2016 07:43
[2016-07-16] MEDS: COLLAGENASE OINT 30 GM TUBE TOP SCH (09:00)
[2016-07-16] MEDS: SODIUM CHLORIDE 0.9% FLUSH 5 ML FLUSH IV FLUSH SCH ×2 (09:00→22:31)
[2016-07-16] MEDS ORDERED: PHARMACY ORDERED LAB XX ONE (09:45)
[2016-07-16] MEDS: ATORVASTATIN 20 MG TAB PO SCH (10:01)
[2016-07-16] MEDS: DILTIAZEM HCL 60 MG TAB PO SCH ×4 (10:01→22:30)
[2016-07-16] MEDS: CLOPIDOGREL 75 MG TAB PO SCH (10:01)
[2016-07-16] MEDS: FAMOTIDINE 20 MG TAB PO SCH ×2 (10:01→22:30)
[2016-07-16] MEDS: NYSTATIN SUSP 500,000 U/5 ML CUP SWISH-SWAL SCH ×4 (10:01→22:30)
[2016-07-16] MEDS: DOCUSATE SODIUM 100 MG CAP PO SCH ×2 (10:01→22:29)
[2016-07-16] MEDS: VANCOMYCIN 1,000 MG/NS 250 ML IV SCH ×2 (11:46)
[2016-07-16] MEDS: DILTIAZEM INJ 125 MG in SODIUM CHLORIDE 0.9% INJ 100 ML IV SCH (14:56)
[2016-07-16] MEDS ORDERED: MAGNESIUM SULFATE 1 GM PREMIX 100 ML IV ONE (15:15)
--- NOTE | 2016-07-16 15:15 | HHI.PR ---
Subjective Remarks Follow-up for left hip possible infection Patient status post arthrocentesis, no complaints, denies any chest pain or shortness of breath. Afebrile. Objective Vitals Vital Signs Date Time Temp Pulse Resp B/P Pulse Ox O2 Delivery O2 Flow Rate FiO2 07/16/16 12:03 97.2 95 22 110/75 93 07/16/16 09:37 93 Nasal Cannula 6.00 07/16/16 08:17 133 07/16/16 08:17 97.8 102 24 126/63 95 07/16/16 04:15 95.7 105 32 100/58 96 07/16/16 04:00 122 07/16/16 00:00 112 07/15/16 23:40 97.7 90 22 112/57 98 07/15/16 20:40 98 Nasal Cannula 2.00 07/15/16 20:15 Nasal Cannula 2.00 07/15/16 20:00 100 07/15/16 19:44 98.0 93 22 107/61 98 07/15/16 16:00 97.6 99 20 98/51 92 I/O 07/15/16 07/15/16 07/15/16 07/16/16 07/16/16 07/16/16 07:00 15:00 23:00 07:00 15:00 23:00 Intake Total 891 ml 1149 ml 938 ml 1022 ml Output Total 200 ml 475 ml 100 ml 100 ml Balance 691 ml 674 ml 838 ml 922 ml Intake Oral 100 ml 120 ml 240 ml 0 ml IV Total 791 ml 1029 ml 698 ml 1022 ml Output Urine Total 200 ml 475 ml 100 ml 100 ml Stool Total 0 ml # Bowel Movements 2 2 0 Result Diagram: 07/16/16 0535 07/16/16 0535 Objective Remarks GENERAL: Not in distress. SKIN: Warm and dry. HEAD: Normocephalic. EYES: No scleral icterus. No injection or drainage. NECK: Supple, trachea midline. No JVD or lymphadenopathy. CARDIOVASCULAR: Tachycardic, irregular rhythm. Without murmurs, gallops, or rubs. RESPIRATORY: Breath sounds equal bilaterally. No accessory muscle use. GASTROINTESTINAL: Abdomen soft, non-tender, nondistended. MUSCULOSKELETAL: No cyanosis, or edema. Left hip wound , no Discharge, surrounding erythema, positive necrotic eschar. Bilateral heels with necrotic eschar, no discharge, no tenderness, mild surrounding erythema. Awake, oriented to self and place, moves extremities. A/P Assessment and Plan This is a 76-year-old male sent for generalized weakness, of note, he had a fracture of the left hip in May, status post ORIF. A. Fib, RVR- contunue Cardizem drip, increase oral Cardizem to 90 mg every 6 hours. Continue Plavix. Replace potassium and magnesium. We'll give some fluids. Hypertension -continue to hold Norvasc for now Dyslipidemia-continue statins. Acute renal failure- creatinine is better, continue IVF, monitor BMP. Sepsis secondary to Left hip and right lateral heel cellulitis versus UTI, rule out septic arthritis - continue wound care, wound swab showed MRSA, sensitive to vancomycin but JOHN is 2. Sensitive to Bactrim. Stop Zosyn, consult infectious disease. Orthopedics following. Status post Aspiration/ arthrocentesis done, Gram stain showed rare WBC, no organisms. Continue Pain control with oral and intravenous narcotics as needed. Left hip fracture status post ORIF-status post repair of intertrochanteric distal neck fracture in 05/24/16, possible wound infection, orthopedics following as above. PVD- S/p bypass in his lower extremity. Continue Plavix. Dementia-supportive care Diabetes mellitus sliding scale insulin for now Hypomagnesemia-replace Hypokalemia-replaced Hypocalcemia-replaced DVT/GI prophylaxis - Heparin/Pepcid Ann Marie Rome MD Jul 16, 2016 15:15
[2016-07-16] MEDS ORDERED: DIGOXIN 0.5 MG/2 ML VIAL IVS STA (15:21)
[2016-07-16] MEDS ORDERED: DILTIAZEM HCL 60 MG TAB PO SCH ×2 (18:00)
--- NOTE | 2016-07-16 20:07 | MB ---
cc: CURRY GUADALUPE MD DATE OF CONSULTATION: 07/16/2016. REASON FOR CONSULTATION: Uncontrolled atrial fibrillation. HISTORY OF PRESENT ILLNESS: Mr. Newby is an unfortunate 76-year-old man who does have a history of prior six-vessel CABG. He presented with sepsis and a diabetic foot ulcer on 07/12/16. He also recently, in April, had a hip fracture with hip repair and has had difficulties with wound healing. The patient is not able to give any significant history. Thus the history is as per the records. PAST MEDICAL HISTORY, CURRENT MEDICATIONS, REVIEW OF SYSTEMS, ALLERGIES, SOCIAL HISTORY: Unobtainable and as per the record. PHYSICAL EXAMINATION: VITAL SIGNS: On physical examination, vital signs are 97.3, 69, 22, 108/75. GENERAL: In general, he is a well-appearing man who is in no apparent distress. The patient is alert and oriented x1. NECK: The neck is free from jugular venous distention. LUNGS: The lungs are clear to auscultation. CARDIOVASCULAR: On cardiovascular examination, he is tachycardic with an irregularly irregular rhythm. ABDOMEN: The abdomen is soft. CARDIOLOGY STUDIES: Telemetry currently shows atrial fibrillation with rapid ventricular rate at 115 beats per minute. LABORATORY STUDIES: Lab values are significant for a hemoglobin of 7.4 with hematocrit of 24. His creatinine is 0.96. IMPRESSIONS: 1. Atrial fibrillation: The patient does have uncontrolled or difficult to control atrial fibrillation. This is undoubtedly compounded by his sepsis and anemia. At this point, he is relatively maxed out on both p.o. and IV Cardizem. Digoxin was added earlier today with little improvement. I am going to add metoprolol. The patient is noted to be on subcutaneous heparin, which is atypical for atrial fibrillation. This is however felt to be reasonable given his profound anemia. 2. Sepsis: This is being managed by the primary team. 3. Anemia: Consideration should be given towards transfusion as this may also help his tachycardia. Curry Guadalupe M.D. DALE/CLOTILDE /7:02 PM /8:01 PM
[2016-07-16] MEDS: METOPROLOL TARTRATE 25 MG TAB PO SCH ×2 (22:00→22:30)
[2016-07-16] MEDS: TAMSULOSIN HCL 0.4 MG CAP PO SCH (22:29)
[2016-07-16] MEDS: DIGOXIN 0.5 MG/2 ML VIAL IVS SCH (22:30)
[2016-07-16] MEDS: ACETAMINOPHEN/HYDROcodone 325 MG/5 MG TAB PO PRN (22:31)
[2016-07-17] VITALS (7 sets, daily range): BP systolic 105–140; BP diastolic 52–74; PULSE 64–92; RESP 16–23; TEMP 97.3–98.3; O2SAT 91–95
[2016-07-17] MEDS: SODIUM CHLOR 0.9% 1000 ML INJ 1,000 ML IV SCH ×2 (00:20→10:34)
[2016-07-17] MEDS: CHLORHEXIDINE GLUCONATE 2 % 1 PACK (2 CLOTHS) TOP SCH (02:47)
[2016-07-17] MEDS: DIGOXIN 0.5 MG/2 ML VIAL IVS SCH (02:47)
[2016-07-17] MEDS: HEPARIN SODIUM - SQ 10,000 UNITS/ML VIAL SQ SCH (05:44)
[2016-07-17] MEDS: METOPROLOL TARTRATE 25 MG TAB PO SCH ×3 (05:44→22:00)
[2016-07-17] MEDS: INSULIN ASPART SUPPLEMENTAL SCALE SQ SCH ×4 (05:45→21:00)
[2016-07-17 07:27] LABS: BICARBONATE 13.7 MEQ/L (21.0-32.0); MAGNESIUM 1.7 MG/DL (1.5-2.5); POTASSIUM 4.3 MEQ/L (3.5-5.1)
[2016-07-17 07:41] LABS: DIGOXIN 2.2 NG/ML (0.8-2.0)
--- NOTE | 2016-07-17 08:57 | PD.CARD.PN ---
Subjective Subjective Remarks Pt without complaints Objective Medications Current Medications Medications (Trade) Dose Ordered Sig/[place] Route Start Time Stop Time Status Last Admin (NS 1000 ml Inj) 1,000 ml @ 100 mls/hr Q10H IV 07/13/16 00:16 07/17/16 00:20 (NS Flush) 2 ml UNSCH PRN IV FLUSH 07/13/16 00:30 (NS Flush) 2 ml BID IV FLUSH 07/13/16 09:00 07/16/16 22:31 (Tylenol) 650 mg Q6H PRN PO 07/13/16 00:30 (Morphine Inj) 2 mg Q2H PRN IV 07/13/16 00:30 07/16/16 05:01 (Colace) 100 mg BID PO 07/13/16 09:00 07/16/16 22:29 (Ambien) 5 mg HS PRN PO 07/13/16 00:30 (Heparin Inj) 5,000 units Q8HR SQ 07/13/16 06:00 07/17/16 05:44 Miscellaneous Information 1 Q361D XX 07/13/16 00:30 (Chlorhexidine 2% Cloth) 3 pack Taper DAILY@04 TOP 07/13/16 04:00 07/09/17 03:59 Chlorhexidine Gluconate 3 pack 3 pack UNSCH PRN TOP 07/13/16 00:30 (Cardizem Inj/NS Inj) 125 ml @ 0 mls/hr TITRATE IV 07/13/16 00:30 07/16/16 14:56 (Norvasc) 5 mg DAILY PO 07/13/16 09:00 Hold 07/13/16 09:46 (Lipitor) 20 mg DAILY PO 07/13/16 09:00 07/16/16 10:01 (Plavix) 75 mg DAILY PO 07/13/16 09:00 07/16/16 10:01 ([place] 5-325 Mg) 1 tab Q4H PRN PO 07/13/16 04:45 07/16/16 22:31 (Mycostatin Liq) 5 ml QID SWISH-SWAL 07/13/16 09:00 07/16/16 22:30 Tamsulosin HCl 0.4 mg 0.4 mg HS PO 07/13/16 21:00 07/16/16 22:29 (Vancomycin Consult Pharmacy) 0 ml @ 0 mls/hr UNSCH OTHER 07/13/16 05:15 (D50w (Vial) Inj) 25 ml UNSCH PRN IV PUSH 07/13/16 05:15 (Glucagon Inj) 1 mg UNSCH PRN OTHER 07/13/16 05:15 (Santyl Oint) 1 applic DAILY TOP 07/14/16 14:00 07/16/16 09:00 Famotidine 20 mg 20 mg Q12HR PO 07/16/16 21:00 07/16/16 22:30 (Vancomycin Inj/ NS 250 ml Inj) 262.5 ml @ 250 mls/hr Q24H IV 07/17/16 09:00 Miscellaneous Information SPECIFIC LAB TO BE DRAWN:VA... ONCE ONCE XX 07/18/16 08:45 07/18/16 08:46 (Lanoxin) 0.125 mg DAILY PO 07/17/16 09:00 (Cardizem) 60 mg QID PO 07/16/16 18:00 07/16/16 22:30 (Lopressor) 25 mg Q8HR PO 07/16/16 19:00 07/17/16 05:44 Vital Signs / I&O Vital Signs Date Time Temp Pulse Resp B/P Pulse Ox O2 Delivery O2 Flow Rate FiO2 07/17/16 08:25 97.8 76 22 139/63 93 07/17/16 04:00 97.9 91 18 118/74 95 07/17/16 00:00 97.8 89 16 116/72 95 07/16/16 20:30 Nasal Cannula 2.00 07/16/16 20:00 97.9 92 17 114/70 95 07/16/16 20:00 107 07/16/16 16:05 97.3 69 22 108/75 95 07/16/16 12:03 97.2 95 22 110/75 93 07/16/16 09:37 93 Nasal Cannula 6.00 07/16/16 09:00 Nasal Cannula 2.00 I/O 07/16/16 07/16/16 07/16/16 07/17/16 07/17/16 07/17/16 07:00 15:00 23:00 07:00 15:00 23:00 Intake Total 1022 ml 1799 ml 898 ml 120 ml Output Total 100 ml 300 ml 325 ml 500 ml Balance 922 ml 1499 ml 573 ml -380 ml Intake Oral 0 ml 240 ml 120 ml 120 ml IV Total 1022 ml 1559 ml 778 ml Output Urine Total 100 ml 300 ml 325 ml 500 ml # Bowel Movements 0 0 Physical Exam GENERAL: Well developed, well nourished. No acute distress. HEENT: Jugular venous pressure is normal. CHEST: Lungs clear to auscultation bilaterally. Unlabored respiratory effort. CARDIAC: irregular rate and rhythm without S3, S4, or murmur. ABDOMEN: Soft, nontender, no hepatosplenomegaly. Bowel sounds present. EXTREMITIES: No clubbing, cyanosis, or edema. Laboratory Laboratory Tests Test 07/16/16 07/17/16 10:59 06:35 Vancomycin Level Trough 10.2 MCG/ML Sodium Level 146 MEQ/L Potassium Level 4.3 MEQ/L Chloride Level 118 MEQ/L Carbon Dioxide Level 13.7 MEQ/L Anion Gap 14 MEQ/L Blood Urea Nitrogen 10 MG/DL Creatinine 0.95 MG/DL Estimat Glomerular Filtration 77 ML/MIN Rate Random Glucose 124 MG/DL Calcium Level 8.3 MG/DL Magnesium Level 1.7 MG/DL Digoxin Level 2.2 NG/ML Assessment and Plan Assessment and Plan AF - rate better, cardizem gtt to off => optimize meds, start long acting cardizem and us short acting PRN => SQ heparin with profound anemia Sepsis- per primary team Anemia- per primary team Jackelyn Guadalupe MD Jul 17, 2016 08:57
[2016-07-17] MEDS ORDERED: DILTIAZEM HCL 30 MG TAB PO PRN (09:00)
[2016-07-17] MEDS: DILTIAZEM-CD 240 MG CAP ER PO SCH (09:00)
[2016-07-17] MEDS: DIGOXIN 0.125 MG TAB PO SCH ×2 (09:00→10:34)
[2016-07-17] MEDS: SODIUM CHLORIDE 0.9% FLUSH 5 ML FLUSH IV FLUSH SCH ×2 (09:00→21:04)
[2016-07-17] MEDS: VANCOMYCIN INJ 1,250 MG in SODIUM CHLOR 0.9% 250 ML INJ 250 ML IV SCH (10:33)
[2016-07-17] MEDS: DOCUSATE SODIUM 100 MG CAP PO SCH ×2 (10:33→21:04)
[2016-07-17] MEDS: ATORVASTATIN 20 MG TAB PO SCH (10:34)
[2016-07-17] MEDS: FAMOTIDINE 20 MG TAB PO SCH ×2 (10:34→21:04)
[2016-07-17] MEDS: NYSTATIN SUSP 500,000 U/5 ML CUP SWISH-SWAL SCH ×4 (10:34→21:03)
[2016-07-17] MEDS: COLLAGENASE OINT 30 GM TUBE TOP SCH (10:34)
--- NOTE | 2016-07-17 10:40 | EC ---
Study Study Date:07/17/2016 STUDY CONCLUSIONS SUMMARY LEFT VENTRICLE: The cavity size was normal. Wall thickness was normal. Systolic function was moderately reduced. The estimated ejection fraction was in the range of 35% to 40%. Hypokinesis of the apical myocardium. Hypokinesis of the inferior myocardium. Hypokinesis of the inferoposterior myocardium. Hypokinesis of the posterior myocardium. Doppler parameters are consistent with abnormal left ventricular relaxation (grade 1 diastolic dysfunction). There was an apparent, apical thrombus. If LV function is below 40, please consider prescribing an ACEI or ARB or document rationale for non-use. PROCEDURE DATA STUDY STATUS: Elective. Procedure: Transthoracic echocardiography. Image quality was fair. Scanning was performed from the parasternal, apical, and subcostal acoustic windows. Results call to Dr. Rome. Study completion: The patient tolerated the procedure well. Transthoracic echocardiography. M-mode, complete 2D, complete spectral Doppler, and color Doppler. Height: Height: 69in. Weight: Weight: 139.7lb. Body mass index: BMI: 20.7kg/m^2. Body surface area: BSA: 1.78m^2. Patient status: Inpatient. CARDIAC ANATOMY LEFT VENTRICLE: The cavity size was normal. Wall thickness was normal. Systolic function was moderately reduced. The estimated ejection fraction was in the range of 35% to 40%. There was an apparent, apical thrombus. Regional wall motion abnormalities: Hypokinesis of the apical myocardium. Hypokinesis of the inferior myocardium. Hypokinesis of the inferoposterior myocardium. Hypokinesis of the posterior myocardium. Doppler parameters are consistent with abnormal left ventricular relaxation (grade 1 diastolic dysfunction). AORTIC VALVE: Mildly thickened, mildly calcified leaflets. Doppler: Transvalvular velocity was within the normal range. There was no stenosis. No regurgitation. Indexed valve area: 0.76cm^2/m^2 (Vmax). Mean gradient: 9mm Hg (S). Peak gradient: 18mm Hg (S). AORTA: Aortic root: The aortic root was normal in size. MITRAL VALVE: Structurally normal valve. Doppler: Transvalvular velocity was within the normal range. There was no evidence for stenosis. Trace regurgitation. Peak gradient: 2mm Hg (D). LEFT ATRIUM: The atrium was normal in size. RIGHT VENTRICLE: Poorly visualized. PULMONIC VALVE: Poorly visualized. Doppler: Transvalvular velocity was within the normal range. There was no evidence for stenosis. No regurgitation. TRICUSPID VALVE: Poorly visualized. Doppler: Transvalvular velocity was within the normal range. Trace regurgitation. PULMONARY ARTERY: The main pulmonary artery was normal-sized. RIGHT ATRIUM: Poorly visualized. PERICARDIUM: There was no pericardial effusion. Patient weight: 139.7lb _Ejection fraction:_ 65-75% _Fractional shortening:_ 32% up to 5Kg 5-11.5Kg 11.6-22.9Kg 23-45Kg 45-57Kg Aortic Root 7-13 <17 13-22 17-27 17-27 LA diam 6-13 <23 24-38 33-47 37-40 RVID 10-17 7-15 7-15 7-18 8-17 LVIDd 12-22 <32 24-38 33-47 37-40 LVPW 2-4 3-6 5-7 6-8 7-8 IVS 2-4 3-6 5-7 6-8 7-8 BASIC MEASUREMENTS ADULT NORMAL Left ventricle LV internal dimension, ED, chordal 46.4 mm 43-52 level, PLAX LV internal dimension, ES, chordal 37.5 mm 23-38 level, PLAX Fractional shortening, chordal level, *19 % >29 PLAX LV posterior wall thickness, ED 8.84 mm IVS/LVPW ratio, ED 1.01 <1.3 Ventricular septum Septal thickness, ED 8.92 mm Aortic valve Leaflet separation 18 mm 15-26 Aorta Root diameter, ED 32 mm Left atrium Anterior-posterior dimension 36 mm Anterior-posterior dimension index 2.02 cm/m^2 <2.2 BASIC MEASUREMENTS ADULT NORMAL Aortic valve Leaflet separation 18 mm 15-26 DOPPLER MEASUREMENTS ADULT NORMAL Aortic valve Peak velocity, S 215 cm/s Mean velocity, S 140 cm/s VTI, S 36.9 cm Mean gradient, S 9 mm Hg Peak gradient, S 18 mm Hg Valve area index, Vmax 0.76 cm^2/m^2 Mitral valve Peak E-wave velocity 75.5 cm/s Peak A-wave velocity 98.7 cm/s Deceleration time 183 ms 150-230 Peak gradient, D 2 mm Hg Peak E/A ratio 0.8 Pulmonic valve Peak velocity, S 91.7 cm/s LEGEND: Mean values are shown as u=mean value. Asterisk (*) blake values outside specified normal range. Prepared and signed by Raymundo Kuo [id number]
--- NOTE | 2016-07-17 11:12 | HHI.PR ---
Subjective Remarks Follow-up for atrial fibrillation Patient still in A. fib but heart rate is more controlled. Add more short of breath than usual, positive fluid balance. No chest pain or palpitations. Discussed with Dr. Kuo, there is a possible left apical thrombus. Ejection fraction is 40%. Objective Vitals Vital Signs Date Time Temp Pulse Resp B/P Pulse Ox O2 Delivery O2 Flow Rate FiO2 07/17/16 08:25 97.8 76 22 139/63 93 07/17/16 04:00 97.9 91 18 118/74 95 07/17/16 00:00 97.8 89 16 116/72 95 07/16/16 20:30 Nasal Cannula 2.00 07/16/16 20:00 97.9 92 17 114/70 95 07/16/16 20:00 107 07/16/16 16:05 97.3 69 22 108/75 95 07/16/16 12:03 97.2 95 22 110/75 93 I/O 07/16/16 07/16/16 07/16/16 07/17/16 07/17/16 07/17/16 07:00 15:00 23:00 07:00 15:00 23:00 Intake Total 1022 ml 1799 ml 898 ml 120 ml Output Total 100 ml 300 ml 325 ml 500 ml Balance 922 ml 1499 ml 573 ml -380 ml Intake Oral 0 ml 240 ml 120 ml 120 ml IV Total 1022 ml 1559 ml 778 ml Output Urine Total 100 ml 300 ml 325 ml 500 ml # Bowel Movements 0 0 Result Diagram: 07/16/16 0535 07/17/16 0635 Objective Remarks GENERAL: Not in distress. SKIN: Warm and dry. HEAD: Normocephalic. EYES: No scleral icterus. No injection or drainage. NECK: Supple, trachea midline. No JVD or lymphadenopathy. CARDIOVASCULAR: Regular rate, irregular rhythm. Without murmurs, gallops, or rubs. RESPIRATORY: Crackles at bases. GASTROINTESTINAL: Abdomen soft, non-tender, nondistended. MUSCULOSKELETAL: No cyanosis, or edema. Left hip wound , no Discharge, surrounding erythema, positive necrotic eschar. Bilateral heels with necrotic eschar, no discharge, no tenderness, mild surrounding erythema. Awake, oriented to self and place, moves extremities. A/P Assessment and Plan This is a 76-year-old male sent for generalized weakness, of note, he had a fracture of the left hip in May, status post ORIF. A. Fib, RVR- off Cardizem drip, continue Cardizem long-acting, continue metoprolol, hold digoxin, supratherapeutic levels. Also heart rate is more controlled. Hold Plavix, start heparin. Left atrial thrombus-discussed with Dr. Tran who read the echocardiogram, ejection fraction 40%, there is a right left apical thrombus, will need to start on anticoagulation. However patient is anemic. We will start heparin drip which can easily be stopped and reversible, stop Plavix. Discussed with Dr. Guadalupe who agreed with the plan. Systolic congestive heart failure exacerbation-mildly fluid overloaded, will give Lasix now and after transfusion. Ejection fraction is 40%. Continue metoprolol. Hypertension -continue to hold Norvasc for now Dyslipidemia-continue statins. Acute renal failure- creatinine is better, continue IVF, monitor BMP. Sepsis secondary to Left hip and right lateral heel cellulitis versus UTI, rule out septic arthritis - continue wound care, wound swab showed MRSA, sensitive to vancomycin but JOHN is 2. Sensitive to Bactrim. Stop Zosyn, consult infectious disease. Orthopedics following. Status post Aspiration/ arthrocentesis done, Gram stain showed rare WBC, no organisms. Continue Pain control with oral and intravenous narcotics as needed. Left hip fracture status post ORIF-status post repair of intertrochanteric distal neck fracture in 05/24/16, possible wound infection, orthopedics following as above. PVD- S/p bypass in his lower extremity. Continue Plavix. Dementia-supportive care Diabetes mellitus sliding scale insulin for now Hypomagnesemia-replace today. Recheck tomorrow. Hypokalemia-replaced Hypocalcemia-replaced DVT/GI prophylaxis - Heparin/Pepcid Discussed with RONAN. Ann Marie Rome MD Jul 17, 2016 11:12
[2016-07-17] MEDS ORDERED: MAGNESIUM SULFATE 1 GM PREMIX 100 ML IV ONE (11:15)
[2016-07-17] MEDS ORDERED: FUROSEMIDE 20 MG/2 ML VIAL IV PUSH ONE (11:15)
[2016-07-17] MEDS ORDERED: FUROSEMIDE 20 MG/2 ML VIAL IV ONE (11:15)
[2016-07-17] MEDS ORDERED: SODIUM CHLOR 0.9% 250 ML INJ 250 ML IV ONE (11:15)
[2016-07-17 12:45] LABS: HEMATOCRIT 31.8 % (39.0-51.0); MEAN CELL VOLUME 90.5 FL (80.0-100.0); PLATELET COUNT 407 TH/MM3 (150-450); RED BLOOD COUNT 3.51 MIL/MM3 (4.50-5.90); RED CELL DISTRIBUTION WIDTH 17.8 % (11.6-17.2); WHITE BLOOD COUNT 37.8 TH/MM3 (4.0-11.0)
[2016-07-17 12:50] LABS: APTT (PATIENT) 27.5 SEC (24.3-30.1); INTERNATIONAL NORMALIZED RATIO 1.1 RATIO; PROTHROMBIN TIME - PATIENT 12.3 SEC (9.8-11.6)
[2016-07-17] MEDS: HEPARIN-D5W INJ 250 ML IV SCH (13:24)
[2016-07-17 13:57] LABS: AUTOMATED NEUTROPHIL # 37.6 TH/MM3 (1.8-7.7); BASOPHIL # 0.1 TH/MM3 (0-0.2); BASOPHIL % 0.1 % (0.0-2.0); HEMATOCRIT 29.2 % (39.0-51.0); LYMPH % 2.2 % (9.0-44.0); LYMPHOCYTE # 0.9 TH/MM3 (1.0-4.8); MEAN CELL VOLUME 88.7 FL (80.0-100.0); MEAN CORPUSCULAR HGB CONC 32.8 % (32.0-36.0); MONO % 1.3 % (0.0-8.0); NEUT % 96.4 % (16.0-70.0); PLATELET COUNT 388 TH/MM3 (150-450); RED CELL DISTRIBUTION WIDTH 17.7 % (11.6-17.2)
[2016-07-17 14:05] LABS: HEMO FLAGS AUTO DIFF
[2016-07-17 14:32] LABS: BANDS 9 % (0-6); NEUTROPHIL # MANUAL DIFF 38.2 TH/MM3 (1.8-7.7); PLATELET ESTIMATE SMEAR NORMAL (NORMAL); PLATELET MORPHOLOGY NORMAL (NORMAL); POLYS (SEG NEUTROPHILS) 89 % (16-70); SCAN/DIFF FINAL DIFF MANUAL; WBC DIFF SAMPLE 100
[2016-07-17] MEDS ORDERED: HEPARIN SODIUM - IV 10,000 UNITS/10 ML VIAL IV PRN ×2 (17:15)
--- NOTE | 2016-07-17 18:03 | MB ---
cc: CLEMENTE SHAFFER MD DATE OF CONSULTATION 07/17/[address] Rome REASON FOR CONSULTATION Left hip MRSA infection HISTORY OF PRESENT ILLNESS This is a 76-year-old white male who was admitted to the hospital on July 12. The patient presented from a long-term facility with generalized weakness and also worsening wound at the left hip. The patient has a wound where his left hip surgery was performed. He had sustained a left hip fracture and he underwent surgery for a femoral neck fracture on May 24, 2016 with a left bipolar hip arthroplasty. He has been at the long-term facility after discharge from the hospital on May 28. New wound cultures were taken after he was admitted to the hospital. This time, it has growth of MRSA. The patient is extremely confused. He had elevated white blood cell count of 17.6 on admission and his white count is now up to 39,000. He now has a copious amount of loose stools. A culture of the left hip was obtained via hip aspiration. He is currently on intravenous vancomycin. The patient is very confused and he has a lot of loose stools in which he was laying when I came into the room. He was actually scratching the area of the wound on his left hip and his hand has feces on it. I cannot get any meaningful information from the patient at this time. He has history of Alzheimer's dementia and, during last hospitalization, he was not able to give meaningful information as well. He was seen by cardiology this admission for atrial fibrillation. He is afebrile. PAST MEDICAL HISTORY 1. Alzheimer's dementia. 2. Diabetes mellitus 3. Hypertension 4. Coronary artery disease 5. Cerebrovascular accident 6. History of coronary bypass graft surgery 7. Left femoral bypass and endarterectomy 8. Peripheral vascular disease 9. Left hip arthroplasty for left femoral neck fracture 10. Left heel ulceration ALLERGIES MDRO MEDICATIONS 1. Vancomycin. 2. Cardizem. 3. Pepcid. 4. Lopressor. 5. Flomax. 6. Colace. 7. Lipitor. 8. Nystatin liquid 9. [place] 5 p.r.n. 10. Morphine sulfate p.r.n. SOCIAL HISTORY No tobacco, alcohol or illicit drugs. The patient is a long-term resident. FAMILY HISTORY Noncontributory. REVIEW OF SYSTEMS Unable to perform PHYSICAL EXAMINATION GENERAL: This is a slender frail-appearing male who is in no acute distress. He is awake and alert but confused. VITAL SIGNS: Temperature 98.3, BP 140/69, respirations 20, heart rate 81. HEENT: Head is atraumatic. Extraocular movements grossly intact. No icterus, oropharynx no lesions. The patient is edentulous. NECK: Supple without adenopathy or swelling. LUNGS: Decreased breath sounds HEART: irregular rate and rhythm. ABDOMEN: Soft, nontender. No palpable masses. Positive bowel sounds. Left hip surgical incision which is now covered with feces. RECTAL: Not performed. EXTREMITIES: No clubbing or cyanosis or edema. Bilateral heel ulcerations. NEUROLOGIC: Unable to fully assess. SKIN: No diffuse rash. LABORATORY DATA WBC 39.0, platelets 388, hemoglobin 9.6, 96% neutrophils. Creatinine 0.95, BUN 10, sodium 146. estimated GFR 77. Urine culture revealed less than 10,000 colonies of mixed bacteria. IMPRESSION 1. Left hip infection due to MRSA in patient who is post left hip arthroplasty. 2. Leukocytosis secondary to hip infection 3. Diarrhea. The patient may have C-difficile. However, he is on Colace as well and did receive supplemental liquid nutrition which may have contributed as well. 4. Dementia RECOMMENDATIONS 1. Continue vancomycin 2. Send stool for C-difficile toxin. 3. Monitor white blood cell count. Thank you for this consultation. The patient's progress will be followed. Further recommendations will be made on followup if necessary. Clemente Shaffer MD FD/ /3:45 PM /5:38 PM JOE
[2016-07-17 19:09] LABS: C. DIFF TOXIN PCR POSITIVE (NEGATIVE)
[2016-07-17 19:13] LABS: C. DIFF EPI 027 PRESUMPTIVE POSITIVE (NEGATIVE)
[2016-07-17] MEDS: TAMSULOSIN HCL 0.4 MG CAP PO SCH (21:04)
[2016-07-17 21:26] LABS: HEMATOCRIT 28.5 % (39.0-51.0)
[2016-07-17 21:35] LABS: REVIEW FLAG FINAL
[2016-07-17 22:03] LABS: APTT (PATIENT) 128.4 SEC (24.3-30.1)
[2016-07-17 23:48] LABS: APTT (PATIENT) 41.8 SEC (24.3-30.1)
[2016-07-18] VITALS (8 sets, daily range): BP systolic 99–129; BP diastolic 50–59; PULSE 60–79; RESP 16–22; TEMP 97.6–98.6; O2SAT 93–96
[2016-07-18] MEDS: CHLORHEXIDINE GLUCONATE 2 % 1 PACK (2 CLOTHS) TOP SCH (04:00)
[2016-07-18] MEDS: METOPROLOL TARTRATE 25 MG TAB PO SCH ×3 (05:57→21:00)
[2016-07-18] MEDS: INSULIN ASPART SUPPLEMENTAL SCALE SQ SCH ×4 (06:00→21:01)
[2016-07-18] MEDS: DILTIAZEM-CD 240 MG CAP ER PO SCH (09:00)
[2016-07-18] MEDS: SODIUM CHLORIDE 0.9% FLUSH 5 ML FLUSH IV FLUSH SCH ×2 (09:00→21:00)
[2016-07-18 09:42] LABS: AUTOMATED NEUTROPHIL # 23.6 TH/MM3 (1.8-7.7); BASOPHIL # 0.1 TH/MM3 (0-0.2); BASOPHIL % 0.2 % (0.0-2.0); HEMATOCRIT 26.9 % (39.0-51.0); HEMO FLAGS DIFF FINAL; LYMPH % 6.7 % (9.0-44.0); LYMPHOCYTE # 1.7 TH/MM3 (1.0-4.8); MEAN CELL VOLUME 90.2 FL (80.0-100.0); MEAN CORPUSCULAR HEMOGLOBIN 29.2 PG (27.0-34.0); MEAN CORPUSCULAR HGB CONC 32.3 % (32.0-36.0); MONO % 2.6 % (0.0-8.0); NEUT % 90.5 % (16.0-70.0); PLATELET COUNT 325 TH/MM3 (150-450); RED BLOOD COUNT 2.99 MIL/MM3 (4.50-5.90); RED CELL DISTRIBUTION WIDTH 17.9 % (11.6-17.2)
[2016-07-18 09:48] LABS: APTT (PATIENT) 48.3 SEC (24.3-30.1)
[2016-07-18] MEDS: DOCUSATE SODIUM 100 MG CAP PO SCH ×2 (09:51→20:59)
[2016-07-18] MEDS: FAMOTIDINE 20 MG TAB PO SCH ×2 (09:51→20:58)
[2016-07-18] MEDS: VANCOMYCIN INJ 1,250 MG in SODIUM CHLOR 0.9% 250 ML INJ 250 ML IV SCH (09:51)
[2016-07-18] MEDS: ATORVASTATIN 20 MG TAB PO SCH (09:52)
[2016-07-18] MEDS: NYSTATIN SUSP 500,000 U/5 ML CUP SWISH-SWAL SCH ×4 (09:52→21:00)
[2016-07-18] MEDS: COLLAGENASE OINT 30 GM TUBE TOP SCH (09:52)
[2016-07-18] MEDS ORDERED: MAGNESIUM SULFATE 1 GM PREMIX 100 ML IV ONE (10:00)
[2016-07-18 10:05] LABS: BICARBONATE 19.5 MEQ/L (21.0-32.0); DIGOXIN 1.5 NG/ML (0.8-2.0); POTASSIUM 3.5 MEQ/L (3.5-5.1)
--- NOTE | 2016-07-18 10:23 | PD.CARD.PN ---
Subjective Subjective Remarks Pt without complaints Objective Medications Current Medications Medications (Trade) Dose Ordered Sig/[place] Route Start Time Stop Time Status Last Admin (NS Flush) 2 ml UNSCH PRN IV FLUSH 07/13/16 00:30 (NS Flush) 2 ml BID IV FLUSH 07/13/16 09:00 07/17/16 21:04 (Tylenol) 650 mg Q6H PRN PO 07/13/16 00:30 (Morphine Inj) 2 mg Q2H PRN IV 07/13/16 00:30 07/16/16 05:01 (Colace) 100 mg BID PO 07/13/16 09:00 07/18/16 09:51 (Ambien) 5 mg HS PRN PO 07/13/16 00:30 Miscellaneous Information 1 Q361D XX 07/13/16 00:30 (Chlorhexidine 2% Cloth) Taper DAILY@04 TOP 07/13/16 04:00 07/09/17 03:59 (Chlorhexidine 2% Cloth) 3 pack UNSCH PRN TOP 07/13/16 00:30 (Norvasc) 5 mg DAILY PO 07/13/16 09:00 Hold 07/13/16 09:46 (Lipitor) 20 mg DAILY PO 07/13/16 09:00 07/18/16 09:52 ([place] 5-325 Mg) 1 tab Q4H PRN PO 07/13/16 04:45 07/16/16 22:31 (Mycostatin Liq) 5 ml QID SWISH-SWAL 07/13/16 09:00 07/18/16 09:52 Tamsulosin HCl 0.4 mg 0.4 mg HS PO 07/13/16 21:00 07/17/16 21:04 (Vancomycin Consult Pharmacy) 0 ml @ 0 mls/hr UNSCH OTHER 07/13/16 05:15 (D50w (Vial) Inj) 25 ml UNSCH PRN IV PUSH 07/13/16 05:15 (Glucagon Inj) 1 mg UNSCH PRN OTHER 07/13/16 05:15 (Santyl Oint) 1 applic DAILY TOP 07/14/16 14:00 07/18/16 09:52 Famotidine 20 mg 20 mg Q12HR PO 07/16/16 21:00 07/18/16 09:51 (Vancomycin Inj/ NS 250 ml Inj) 262.5 ml @ 250 mls/hr Q24H IV 07/17/16 09:00 07/18/16 09:51 Miscellaneous Information SPECIFIC LAB TO BE DRAWN:VA... ONCE ONCE XX 07/20/16 08:45 07/20/16 08:46 (Lanoxin) 0.125 mg DAILY PO 07/17/16 09:00 Hold (Lopressor) 25 mg Q8HR PO 07/16/16 19:00 07/18/16 05:57 (Cardizem) 30 mg Q4HR PRN PO 07/17/16 09:00 (Cardizem Cd) 240 mg DAILY PO 07/17/16 09:00 07/17/16 09:00 (Heparin Inj) 5,000 units UNSCH PRN IV 07/17/16 17:15 Heparin Sodium (Porcine) 2500 units 2,500 units UNSCH PRN IV 07/17/16 17:15 Heparin Sodium/ Dextrose 250 ml @ 0 mls/hr TITRATE IV 07/17/16 11:15 07/17/16 13:24 Metronidazole 100 ml @ 100 mls/hr Q8H IV 07/18/16 10:00 (Magnesium Sulfate 1 Gm Premix) 100 ml @ 100 mls/hr ONCE ONCE IV 07/18/16 10:00 07/18/16 10:59 Vital Signs / I&O Vital Signs Date Time Temp Pulse Resp B/P Pulse Ox O2 Delivery O2 Flow Rate FiO2 07/18/16 08:18 98.5 60 18 111/55 93 07/18/16 04:00 98.1 74 16 115/56 94 07/18/16 00:00 97.6 73 16 129/59 96 07/17/16 20:20 Nasal Cannula 2.00 07/17/16 20:00 97.3 91 16 105/52 95 07/17/16 20:00 92 07/17/16 18:24 91 Nasal Cannula 2.00 07/17/16 16:05 97.6 64 23 120/56 91 07/17/16 12:39 94 Nasal Cannula 6.00 07/17/16 12:04 98.3 81 23 140/69 94 I/O 07/17/16 07/17/16 07/17/16 07/18/16 07/18/16 07/18/16 07:00 15:00 23:00 07:00 15:00 23:00 Intake Total 120 ml 240 ml 782 ml 240 ml Output Total 500 ml 400 ml 525 ml 350 ml Balance -380 ml -160 ml 257 ml -110 ml Intake Oral 120 ml 240 ml 240 ml 240 ml IV Total 542 ml Output Urine Total 500 ml 400 ml 525 ml 350 ml # Bowel Movements 2 Physical Exam GENERAL: Well developed, well nourished. No acute distress. HEENT: Jugular venous pressure is normal. CHEST: Lungs clear to auscultation bilaterally. Unlabored respiratory effort. CARDIAC: irregular rate and rhythm without S3, S4, or murmur. ABDOMEN: Soft, nontender, no hepatosplenomegaly. Bowel sounds present. EXTREMITIES: No clubbing, cyanosis, or edema. Laboratory Laboratory Tests Test 07/17/16 07/17/16 07/17/16 07/17/16 12:07 13:30 15:30 21:10 White Blood Count 37.8 TH/MM3 39.0 TH/MM3 Red Blood Count 3.51 MIL/MM3 3.30 MIL/MM3 Hemoglobin 10.2 GM/DL 9.6 GM/DL 9.4 GM/DL Hematocrit 31.8 % 29.2 % 28.5 % Mean Corpuscular Volume 90.5 FL 88.7 FL Mean Corpuscular Hemoglobin 29.0 PG 29.0 PG Mean Corpuscular Hemoglobin 32.0 % 32.8 % Concent Red Cell Distribution Width 17.8 % 17.7 % Platelet Count 407 TH/MM3 388 TH/MM3 Mean Platelet Volume 9.1 FL 8.8 FL Prothrombin Time 12.3 SEC Prothromb Time International 1.1 RATIO Ratio Activated Partial 27.5 SEC 128.4 SEC Thromboplast Time Blood Type AB POSITIVE Antibody Screen NEGATIVE Crossmatch Leukocyte-Reduced Red Blood Cells Blood Bank Comment Neutrophils (%) (Auto) 96.4 % Lymphocytes (%) (Auto) 2.2 % Monocytes (%) (Auto) 1.3 % Eosinophils (%) (Auto) 0.0 % Basophils (%) (Auto) 0.1 % Neutrophils # (Auto) 37.6 TH/MM3 Lymphocytes # (Auto) 0.9 TH/MM3 Monocytes # (Auto) 0.5 TH/MM3 Eosinophils # (Auto) 0.0 TH/MM3 Basophils # (Auto) 0.1 TH/MM3 CBC Comment AUTO DIFF Differential Total Cells 100 Counted Neutrophils % (Manual) 89 % Band Neutrophils % 9 % Lymphocytes % 1 % Monocytes % 1 % Neutrophils # (Manual) 38.2 TH/MM3 Differential Comment FINAL DIFF MANUAL Platelet Estimate NORMAL Platelet Morphology Comment NORMAL Red Cell Morphology Comment NORMAL Stool C. difficile Toxin (PCR) POSITIVE Stl C. difficile Toxin PRESUMPTIVE Epiderm 027 POSITIVE Test 07/17/16 07/18/16 23:25 09:04 Activated Partial 41.8 SEC 48.3 SEC Thromboplast Time White Blood Count 26.0 TH/MM3 Red Blood Count 2.99 MIL/MM3 Hemoglobin 8.7 GM/DL Hematocrit 26.9 % Mean Corpuscular Volume 90.2 FL Mean Corpuscular Hemoglobin 29.2 PG Mean Corpuscular Hemoglobin 32.3 % Concent Red Cell Distribution Width 17.9 % Platelet Count 325 TH/MM3 Mean Platelet Volume 8.9 FL Neutrophils (%) (Auto) 90.5 % Lymphocytes (%) (Auto) 6.7 % Monocytes (%) (Auto) 2.6 % Eosinophils (%) (Auto) 0.0 % Basophils (%) (Auto) 0.2 % Neutrophils # (Auto) 23.6 TH/MM3 Lymphocytes # (Auto) 1.7 TH/MM3 Monocytes # (Auto) 0.7 TH/MM3 Eosinophils # (Auto) 0.0 TH/MM3 Basophils # (Auto) 0.1 TH/MM3 CBC Comment DIFF FINAL Differential Comment Sodium Level 144 MEQ/L Potassium Level 3.5 MEQ/L Chloride Level 115 MEQ/L Carbon Dioxide Level 19.5 MEQ/L Anion Gap 10 MEQ/L Blood Urea Nitrogen 11 MG/DL Creatinine 0.98 MG/DL Estimat Glomerular Filtration 74 ML/MIN Rate Random Glucose 130 MG/DL Calcium Level 7.6 MG/DL Digoxin Level 1.5 NG/ML Assessment and Plan Assessment and Plan AF - fran today, decrease cardizem and metoprolol, stop digoxin HTN- BP a bit low- stop amlodpine and lasix Apical thrombus- ECHO IV heparin with caution given his anemia -likely secondary to NE at some point -he is not a revascularization candidate secondary to comorbid conditions Cardiomyopathy- EF 35-40%, keep beta anthony for both rate control and cardiomyopathy - BP relatively too low for federica at this time -fluid and sodium restrict, evaluate need for lasix again in am Sepsis- per primary team Anemia- per primary team - stop plavix Jackelyn Guadalupe MD Jul 18, 2016 10:23
--- NOTE | 2016-07-18 11:19 | HHI.PR ---
Subjective Remarks Follow-up for diarrhea, sepsis Patient's heart rate more controlled, off Cardizem. However now with diarrhea, denies any abdominal pain, nausea or vomiting. Patient's oral intake is poor. Objective Vitals Vital Signs Date Time Temp Pulse Resp B/P Pulse Ox O2 Delivery O2 Flow Rate FiO2 07/18/16 08:18 98.5 60 18 111/55 93 07/18/16 04:00 98.1 74 16 115/56 94 07/18/16 00:00 97.6 73 16 129/59 96 07/17/16 20:20 Nasal Cannula 2.00 07/17/16 20:00 97.3 91 16 105/52 95 07/17/16 20:00 92 07/17/16 18:24 91 Nasal Cannula 2.00 07/17/16 16:05 97.6 64 23 120/56 91 07/17/16 12:39 94 Nasal Cannula 6.00 07/17/16 12:04 98.3 81 23 140/69 94 I/O 07/17/16 07/17/16 07/17/16 07/18/16 07/18/16 07/18/16 07:00 15:00 23:00 07:00 15:00 23:00 Intake Total 120 ml 240 ml 782 ml 240 ml Output Total 500 ml 400 ml 525 ml 350 ml Balance -380 ml -160 ml 257 ml -110 ml Intake Oral 120 ml 240 ml 240 ml 240 ml IV Total 542 ml Output Urine Total 500 ml 400 ml 525 ml 350 ml # Bowel Movements 2 Result Diagram: 07/18/1690307/18/16 0904 Objective Remarks GENERAL: Not in distress. SKIN: Warm and dry. HEAD: Normocephalic. EYES: No scleral icterus. No injection or drainage. NECK: Supple, trachea midline. No JVD or lymphadenopathy. CARDIOVASCULAR: Regular rate, irregular rhythm. Without murmurs, gallops, or rubs. RESPIRATORY: Crackles at bases. GASTROINTESTINAL: Abdomen soft, non-tender, nondistended. MUSCULOSKELETAL: No cyanosis, or edema. Left hip wound , no Discharge, surrounding erythema, positive necrotic eschar. Bilateral heels with necrotic eschar, no discharge, no tenderness, mild surrounding erythema. Awake, oriented to self and place, moves extremities. A/P Assessment and Plan This is a 76-year-old male sent for generalized weakness, of note, he had a fracture of the left hip in May, status post ORIF. A. Fib, RVR- off Cardizem drip, continue Cardizem long-acting, continue metoprolol, hold digoxin, supratherapeutic levels. Check digoxin levels tomorrow. Hold Plavix, heparin as before. Left atrial thrombus-discussed with Dr. Tran who read the echocardiogram, ejection fraction 40%, there is a right left apical thrombus, continue heparin, if no bleeding, switch to oral or Lovenox. Stop Plavix per cardiology. Discussed with Dr. Guadalupe. Sepsis secondary to C. difficile-patient with diarrhea, severe leukocytosis, start Flagyl, if not better tomorrow, start vancomycin orally. Infectious disease following. Discussed with Systolic congestive heart failure exacerbation-mildly fluid overloaded, now resolved. Hold off on Lasix. Ejection fraction is 40%. Continue metoprolol. Hypertension -continue to hold Norvasc for now Dyslipidemia-continue statins. Acute renal failure- creatinine is better, monitor BMP. Resolved with IVF. Sepsis secondary to Left hip and right lateral heel cellulitis versus UTI, rule out septic arthritis - continue wound care, wound swab showed MRSA, sensitive to vancomycin but JOHN is 2. Orthopedics following. Status post Aspiration/ arthrocentesis done, Gram stain showed rare WBC, no organisms. Will need surgery if aspiration cultures positive, so far negative. Continue Pain control with oral and intravenous narcotics as needed. Left hip fracture status post ORIF-status post repair of intertrochanteric distal neck fracture in 05/24/16, possible wound infection, orthopedics following as above. Anemia- hemoglobin checked stable, hold transfusion for now. Poor oral intake, mild hypoglycemia-start D5W. PVD- S/p bypass in his lower extremity. On heparin. Dementia-supportive care Diabetes mellitus - sliding scale insulin for now, on D5W. Hypomagnesemia-replace today. Hypokalemia-replaced Hypocalcemia-replaced DVT/GI prophylaxis - Heparin/Pepcid Discussed with RN and infectious disease. Ann Marie Rome MD Jul 18, 2016 11:19
[2016-07-18] MEDS: DEXTROSE 5% IN WATE 1000ML INJ 1,000 ML IV SCH (11:52)
[2016-07-18 13:27] LABS: HEMATOCRIT 26.2 % (39.0-51.0); REVIEW FLAG FINAL
[2016-07-18] MEDS: metroNIDAZOLE 500 MG INJ 100 ML IV SCH ×2 (14:45→17:07)
--- NOTE | 2016-07-18 17:42 | HHI.IDPN ---
Note Infectious Disease Note Patient is confused but mare awake. No complaints. No communicating meaningfully. Denies abdominal pain. Afebrile. C diff positive. Started on Flagyl. Current Medications Medications (Trade) Dose Ordered Sig/[place] Route PRN Reason Start Time Stop Time Status Last Admin Dose Admin IV Flush (NS Flush) 2 ml UNSCH PRN IV FLUSH FLUSH AFTER USING IV ACCESS 07/13/16 00:30 IV Flush (NS Flush) 2 ml BID IV FLUSH 07/13/16 09:00 07/17/16 21:04 Acetaminophen (Tylenol) 650 mg Q6H PRN PO PAIN 1-10 AND/OR FEVER >101F 07/13/16 00:30 Morphine Sulfate (Morphine Inj) 2 mg Q2H PRN IV PAIN SCALE 6 TO 10 07/13/16 00:30 07/16/16 05:01 Docusate Sodium (Colace) 100 mg BID PO 07/13/16 09:00 07/18/16 09:51 Zolpidem Tartrate (Ambien) 5 mg HS PRN PO INSOMNIA 07/13/16 00:30 Miscellaneous Information 1 Q361D XX 07/13/16 00:30 Chlorhexidine Gluconate (Chlorhexidine 2% Cloth) Taper DAILY@04 TOP 07/13/16 04:00 07/09/17 03:59 Chlorhexidine Gluconate (Chlorhexidine 2% Cloth) 3 pack UNSCH PRN TOP HYGIENIC CARE 07/13/16 00:30 Atorvastatin Calcium (Lipitor) 20 mg DAILY PO 07/13/16 09:00 07/18/16 09:52 Acetaminophen/ Hydrocodone Bitart ([place] 5-325 Mg) 1 tab Q4H PRN PO PAIN LESS THAN 5 ON SCALE 07/13/16 04:45 07/16/16 22:31 Nystatin (Mycostatin Liq) 5 ml QID SWISH-SWAL 07/13/16 09:00 07/18/16 17:10 Tamsulosin HCl 0.4 mg 0.4 mg HS PO 07/13/16 21:00 Hold 07/17/16 21:04 Pharmacy Profile Note (Vancomycin Consult Pharmacy) 0 ml @ 0 mls/hr UNSCH OTHER 07/13/16 05:15 Dextrose (D50w (Vial) Inj) 25 ml UNSCH PRN IV PUSH HYPOGLYCEMIA-SEE COMMENTS 07/13/16 05:15 Glucagon (Glucagon Inj) 1 mg UNSCH PRN OTHER HYPOGLYCEMIA-SEE COMMENTS 07/13/16 05:15 Collagenase (Santyl Oint) 1 applic DAILY TOP 07/14/16 14:00 07/18/16 09:52 Famotidine 20 mg 20 mg Q12HR PO 07/16/16 21:00 07/18/16 09:51 Vancomycin HCl/ Sodium Chloride (Vancomycin Inj/ NS 250 ml Inj) 262.5 ml @ 250 mls/hr Q24H IV 07/17/16 09:00 07/18/16 09:51 Miscellaneous Information SPECIFIC LAB TO BE DRAWN:VA... ONCE ONCE XX 07/20/16 08:45 07/20/16 08:46 Diltiazem HCl (Cardizem) 30 mg Q4HR PRN PO RAPID HEART RATE 07/17/16 09:00 Heparin Sodium (Porcine) (Heparin Inj) 5,000 units UNSCH PRN IV APTT LESS THAN 25 07/17/16 17:15 Heparin Sodium (Porcine) 2500 units 2,500 units UNSCH PRN IV APTT 25 TO 39 07/17/16 17:15 Heparin Sodium/ Dextrose 250 ml @ 0 mls/hr TITRATE IV 07/17/16 11:15 07/17/16 13:24 Metronidazole (Flagyl 500 Mg Inj) 100 ml @ 100 mls/hr Q8H IV 07/18/16 10:00 07/18/16 17:07 Diltiazem HCl (Cardizem Cd) 120 mg DAILY PO 07/19/16 09:00 Metoprolol Tartrate 25 mg 25 mg Q12HR PO 07/18/16 21:00 Dextrose (D5W 1000 ml Inj) 1,000 ml @ 84 mls/hr [id number] IV 07/18/16 11:30 07/18/16 11:52 Vital Signs Date Time Temp Pulse Resp B/P Pulse Ox O2 Delivery O2 Flow Rate FiO2 07/18/16 16:03 98.6 75 22 111/53 96 07/18/16 15:46 71 07/18/16 15:31 93 Nasal Cannula 2.00 07/18/16 12:13 97.9 67 21 115/56 93 07/18/16 08:18 98.5 60 18 111/55 93 07/18/16 04:00 98.1 74 16 115/56 94 07/18/16 00:00 97.6 73 16 129/59 96 07/17/16 20:20 Nasal Cannula 2.00 07/17/16 20:00 97.3 91 16 105/52 95 07/17/16 20:00 92 07/17/16 18:24 91 Nasal Cannula 2.00 07/17/16 07/17/16 07/18/16 15:00 23:00 07:00 Intake Total 240 ml 782 ml 240 ml Output Total 400 ml 525 ml 350 ml Balance -160 ml 257 ml -110 ml Intake Oral 240 ml 240 ml 240 ml IV Total 542 ml Output Urine Total 400 ml 525 ml 350 ml # Bowel Movements 2 Laboratory Tests Test 07/17/16 07/17/16 07/18/16 07/18/16 21:10 23:25 09:04 12:56 Hemoglobin 9.4 GM/DL 8.7 GM/DL 8.2 GM/DL Hematocrit 28.5 % 26.9 % 26.2 % Activated Partial 128.4 SEC 41.8 SEC 48.3 SEC Thromboplast Time White Blood Count 26.0 TH/MM3 Red Blood Count 2.99 MIL/MM3 Mean Corpuscular Volume 90.2 FL Mean Corpuscular Hemoglobin 29.2 PG Mean Corpuscular Hemoglobin 32.3 % Concent Red Cell Distribution Width 17.9 % Platelet Count 325 TH/MM3 Mean Platelet Volume 8.9 FL Neutrophils (%) (Auto) 90.5 % Lymphocytes (%) (Auto) 6.7 % Monocytes (%) (Auto) 2.6 % Eosinophils (%) (Auto) 0.0 % Basophils (%) (Auto) 0.2 % Neutrophils # (Auto) 23.6 TH/MM3 Lymphocytes # (Auto) 1.7 TH/MM3 Monocytes # (Auto) 0.7 TH/MM3 Eosinophils # (Auto) 0.0 TH/MM3 Basophils # (Auto) 0.1 TH/MM3 CBC Comment DIFF FINAL Differential Comment Sodium Level 144 MEQ/L Potassium Level 3.5 MEQ/L Chloride Level 115 MEQ/L Carbon Dioxide Level 19.5 MEQ/L Anion Gap 10 MEQ/L Blood Urea Nitrogen 11 MG/DL Creatinine 0.98 MG/DL Estimat Glomerular Filtration 74 ML/MIN Rate Random Glucose 130 MG/DL Calcium Level 7.6 MG/DL Digoxin Level 1.5 NG/ML GENERAL: Patient is in no acute distress. HEENT: PERRL. EOMI, No icterus. NECK: Supple, no adenopathy. LUNGS: Clear breath sounds. CARDIAC: Regular rate and rhythm. ABDOMEN: (+) BS, Soft, non tender. MUSCULOSKELETAL: R. hip wound without drainage. EXTREMITIES: No CCE. SKIN: No rash. ASSESSMENT: R. hip wound infection - MRSA. Post R. hip arthroplasty. C. diff colitis PLAN. Continue Vancomycin IV. Continue Flagyl IV for c. diff. Add Vancomycin PO for c. diff. hypervirulent strain. Monitor clinical response. Pablo Draper MD Jul 18, 2016 17:42
[2016-07-18 19:12] LABS: APTT (PATIENT) 42.7 SEC (24.3-30.1)
[2016-07-18] MEDS: VANCOMYCIN 500 MG VIAL (FOR ORAL USE ONLY) PO SCH ×2 (21:00→21:38)
[2016-07-18 23:14] LABS: HEMATOCRIT 26.5 % (39.0-51.0); REVIEW FLAG FINAL
[2016-07-19] VITALS (10 sets, daily range): BP systolic 116–144; BP diastolic 57–65; PULSE 65–89; RESP 20–22; TEMP 97.2–99; O2SAT 93–97
[2016-07-19] MEDS: metroNIDAZOLE 500 MG INJ 100 ML IV SCH ×3 (02:30→17:36)
[2016-07-19] MEDS: DEXTROSE 5% IN WATE 1000ML INJ 1,000 ML IV SCH ×3 (03:48→21:32)
[2016-07-19] MEDS: CHLORHEXIDINE GLUCONATE 2 % 1 PACK (2 CLOTHS) TOP SCH (04:44)
[2016-07-19] MEDS: INSULIN ASPART SUPPLEMENTAL SCALE SQ SCH ×4 (06:21→21:00)
[2016-07-19 07:12] LABS: APTT (PATIENT) 30.1 SEC (24.3-30.1)
[2016-07-19 07:22] LABS: AUTOMATED NEUTROPHIL # 22.3 TH/MM3 (1.8-7.7); BASOPHIL # 0.1 TH/MM3 (0-0.2); BASOPHIL % 0.4 % (0.0-2.0); EOSINOPHIL % 0.1 % (0.0-4.0); HEMATOCRIT 23.9 % (39.0-51.0); HEMO FLAGS DIFF FINAL; LYMPH % 6.9 % (9.0-44.0); LYMPHOCYTE # 1.7 TH/MM3 (1.0-4.8); MEAN CELL VOLUME 88.6 FL (80.0-100.0); MEAN CORPUSCULAR HEMOGLOBIN 29.3 PG (27.0-34.0); MEAN CORPUSCULAR HGB CONC 33.1 % (32.0-36.0); MONO % 2.7 % (0.0-8.0); NEUT % 89.9 % (16.0-70.0); PLATELET COUNT 282 TH/MM3 (150-450); RED CELL DISTRIBUTION WIDTH 17.9 % (11.6-17.2); WHITE BLOOD COUNT 24.9 TH/MM3 (4.0-11.0)
[2016-07-19 07:38] LABS: BICARBONATE 20.7 MEQ/L (21.0-32.0); DIGOXIN 1.2 NG/ML (0.8-2.0); MAGNESIUM 1.3 MG/DL (1.5-2.5); POTASSIUM 3.3 MEQ/L (3.5-5.1)
[2016-07-19 07:51] LABS: CALCIUM-PROTEIN CORRECTED 8.1 MG/DL (8.5-10.1)
--- NOTE | 2016-07-19 08:01 | PD.ORT.PN ---
Subjective Subjective Remarks 76yo male s/p left bipolar arthroplasty for femoral neck fracture. His procedure was originally delayed several weeks secondary to renal issues and aspiration pneumonia. Pt. d/c'd to rehab but sent home after ins. coverage . Rest of hx not clear. Pt readmitted recently with diabetic ulcer, generalized decline in health and decubiti including operative site. He has not had out patient f/u. Unclear as to functional status as he has dementia and no family available. Pt laying in bed, pleasantly confused. History unreliable from patient. No other complaints noted. Objective Vitals Vital Signs Date Time Temp Pulse Resp B/P Pulse Ox O2 Delivery O2 Flow Rate FiO2 07/19/16 04:16 98.2 83 20 130/58 96 07/19/16 00:04 97.4 75 20 129/57 94 07/18/16 21:30 99/50 Automatic Cuff 07/18/16 20:06 98.4 79 22 104/51 94 07/18/16 16:03 98.6 75 22 111/53 96 07/18/16 15:46 71 07/18/16 15:31 93 Nasal Cannula 2.00 07/18/16 12:13 97.9 67 21 115/56 93 07/18/16 08:18 98.5 60 18 111/55 93 I/O 07/18/16 07/18/16 07/18/16 07/19/16 07/19/16 07/19/16 07:00 15:00 23:00 07:00 15:00 23:00 Intake Total 240 ml 480 ml 2015 ml 240 ml Output Total 350 ml 450 ml 250 ml 400 ml Balance -110 ml 30 ml 1765 ml -160 ml Intake Oral 240 ml 480 ml 240 ml 240 ml IV Total 1775 ml Output Urine Total 350 ml 450 ml 250 ml 400 ml # Bowel Movements 2 1 1 Result Diagram: 07/19/16 0610 07/19/16 0610 Imaging Last 48 hours Impressions Hip Aspiration/Injection 07/15/16 0000 Signed Impressions: Service Date/Time: July 15:55 - CONCLUSION: Uncomplicated aspiration as above. Aniceto Vasquez MD X-ray pelvis 07/12- post operative changes, no fx or dislocation. There is periacetabular osteopenia similar in appearance to immediate post op view Last 72 hours Impressions Chest X-Ray 07/12/161957 Signed Impressions: Service Date/Time: Tuesday, July 12, 2016 20:23 - CONCLUSION: 1. Postoperative CABG. Remote granulomatous disease. No effusion or pneumothorax. Tony Galloway MD Objective Remarks LLE: Pt awake, alert, pleasantly confused. He holds his hip flexed at 110 deg. Pain with any attempt at ROM. No erythema or induration. Area of blistering around proximal aspect of incision. No calf swelling or palpable tenderness. Neuro unreliable. Assessment & Plan Problem List: (1) Fracture of left hip requiring operative repair (2) PVD (peripheral vascular disease) (3) Non healing left heel wound (4) Type 2 diabetes mellitus (5) Renal insufficiency (6) Diabetic foot infection (7) Sepsis associated hypotension (8) Hx of coronary artery disease (9) HTN (hypertension) Assessment and Plan G/S and cultures negative. Not suspicious for septic hip at this point. Continue with aggressive rehabilitation and therapy. Knee immobilizer has been ordered. Pt is to wear when laying in bed to help left leg stay in extension. Discharge planning. Mary Ellen Pike Jul 19, 2016 08:01
--- NOTE | 2016-07-19 08:04 | PD.CARD.PN ---
Subjective Subjective Remarks no complaints Objective Medications Current Medications Medications (Trade) Dose Ordered Sig/[place] Route Start Time Stop Time Status Last Admin (NS Flush) 2 ml UNSCH PRN IV FLUSH 07/13/16 00:30 (NS Flush) 2 ml BID IV FLUSH 07/13/16 09:00 07/18/16 21:00 (Tylenol) 650 mg Q6H PRN PO 07/13/16 00:30 (Morphine Inj) 2 mg Q2H PRN IV 07/13/16 00:30 07/16/16 05:01 (Colace) 100 mg BID PO 07/13/16 09:00 07/18/16 20:59 (Ambien) 5 mg HS PRN PO 07/13/16 00:30 Miscellaneous Information 1 Q361D XX 07/13/16 00:30 (Chlorhexidine 2% Cloth) Taper DAILY@04 TOP 07/13/16 04:00 07/09/17 03:59 07/19/16 04:44 (Chlorhexidine 2% Cloth) 3 pack UNSCH PRN TOP 07/13/16 00:30 (Lipitor) 20 mg DAILY PO 07/13/16 09:00 07/18/16 09:52 ([place] 5-325 Mg) 1 tab Q4H PRN PO 07/13/16 04:45 07/16/16 22:31 (Mycostatin Liq) 5 ml QID SWISH-SWAL 07/13/16 09:00 07/18/16 21:00 Tamsulosin HCl 0.4 mg 0.4 mg HS PO 07/13/16 21:00 Hold 07/17/16 21:04 (Vancomycin Consult Pharmacy) 0 ml @ 0 mls/hr UNSCH OTHER 07/13/16 05:15 (D50w (Vial) Inj) 25 ml UNSCH PRN IV PUSH 07/13/16 05:15 (Glucagon Inj) 1 mg UNSCH PRN OTHER 07/13/16 05:15 (Santyl Oint) 1 applic DAILY TOP 07/14/16 14:00 07/18/16 09:52 Famotidine 20 mg 20 mg Q12HR PO 07/16/16 21:00 07/18/16 20:58 (Vancomycin Inj/ NS 250 ml Inj) 262.5 ml @ 250 mls/hr Q24H IV 07/17/16 09:00 07/18/16 09:51 Miscellaneous Information SPECIFIC LAB TO BE DRAWN:VA... ONCE ONCE XX 07/20/16 08:45 07/20/16 08:46 (Cardizem) 30 mg Q4HR PRN PO 07/17/16 09:00 (Heparin Inj) 5,000 units UNSCH PRN IV 07/17/16 17:15 Heparin Sodium (Porcine) 2500 units 2,500 units UNSCH PRN IV 07/17/16 17:15 Heparin Sodium/ Dextrose 250 ml @ 0 mls/hr TITRATE IV 07/17/16 11:15 07/17/16 13:24 (Flagyl 500 Mg Inj) 100 ml @ 100 mls/hr Q8H IV 07/18/16 10:00 07/19/16 02:30 (Cardizem Cd) 120 mg DAILY PO 07/19/16 09:00 Metoprolol Tartrate 25 mg 25 mg Q12HR PO 07/18/16 21:00 (D5W 1000 ml Inj) 1,000 ml @ 84 mls/hr [id number] IV 07/18/16 11:30 07/19/16 03:48 (VANCOMYCIN for oral use only) 125 mg QID PO 07/18/16 18:00 07/18/16 21:38 Vital Signs / I&O Vital Signs Date Time Temp Pulse Resp B/P Pulse Ox O2 Delivery O2 Flow Rate FiO2 07/19/16 04:16 98.2 83 20 130/58 96 07/19/16 00:04 97.4 75 20 129/57 94 07/18/16 21:30 99/50 Automatic Cuff 07/18/16 20:06 98.4 79 22 104/51 94 07/18/16 16:03 98.6 75 22 111/53 96 07/18/16 15:46 71 07/18/16 15:31 93 Nasal Cannula 2.00 07/18/16 12:13 97.9 67 21 115/56 93 07/18/16 08:18 98.5 60 18 111/55 93 I/O 07/18/16 07/18/16 07/18/16 07/19/16 07/19/16 07/19/16 07:00 15:00 23:00 07:00 15:00 23:00 Intake Total 240 ml 480 ml 2015 ml 240 ml Output Total 350 ml 450 ml 250 ml 400 ml Balance -110 ml 30 ml 1765 ml -160 ml Intake Oral 240 ml 480 ml 240 ml 240 ml IV Total 1775 ml Output Urine Total 350 ml 450 ml 250 ml 400 ml # Bowel Movements 2 1 1 Physical Exam GENERAL: Well developed, well nourished. No acute distress. HEENT: Jugular venous pressure is normal. CHEST: Lungs clear to auscultation bilaterally. Unlabored respiratory effort. CARDIAC: irregular rate and rhythm without S3, S4, or murmur. ABDOMEN: Soft, nontender, no hepatosplenomegaly. Bowel sounds present. EXTREMITIES: No clubbing, cyanosis, or edema. Laboratory Laboratory Tests Test 07/18/16 07/18/16 07/18/16 07/18/16 09:04 12:56 18:52 22:53 White Blood Count 26.0 TH/MM3 Red Blood Count 2.99 MIL/MM3 Hemoglobin 8.7 GM/DL 8.2 GM/DL 8.7 GM/DL Hematocrit 26.9 % 26.2 % 26.5 % Mean Corpuscular Volume 90.2 FL Mean Corpuscular Hemoglobin 29.2 PG Mean Corpuscular Hemoglobin 32.3 % Concent Red Cell Distribution Width 17.9 % Platelet Count 325 TH/MM3 Mean Platelet Volume 8.9 FL Neutrophils (%) (Auto) 90.5 % Lymphocytes (%) (Auto) 6.7 % Monocytes (%) (Auto) 2.6 % Eosinophils (%) (Auto) 0.0 % Basophils (%) (Auto) 0.2 % Neutrophils # (Auto) 23.6 TH/MM3 Lymphocytes # (Auto) 1.7 TH/MM3 Monocytes # (Auto) 0.7 TH/MM3 Eosinophils # (Auto) 0.0 TH/MM3 Basophils # (Auto) 0.1 TH/MM3 CBC Comment DIFF FINAL Differential Comment Activated Partial 48.3 SEC 42.7 SEC Thromboplast Time Sodium Level 144 MEQ/L Potassium Level 3.5 MEQ/L Chloride Level 115 MEQ/L Carbon Dioxide Level 19.5 MEQ/L Anion Gap 10 MEQ/L Blood Urea Nitrogen 11 MG/DL Creatinine 0.98 MG/DL Estimat Glomerular Filtration 74 ML/MIN Rate Random Glucose 130 MG/DL Calcium Level 7.6 MG/DL Digoxin Level 1.5 NG/ML Test 07/19/16 06:10 White Blood Count 24.9 TH/MM3 Red Blood Count 2.70 MIL/MM3 Hemoglobin 7.9 GM/DL Hematocrit 23.9 % Mean Corpuscular Volume 88.6 FL Mean Corpuscular Hemoglobin 29.3 PG Mean Corpuscular Hemoglobin 33.1 % Concent Red Cell Distribution Width 17.9 % Platelet Count 282 TH/MM3 Mean Platelet Volume 9.4 FL Neutrophils (%) (Auto) 89.9 % Lymphocytes (%) (Auto) 6.9 % Monocytes (%) (Auto) 2.7 % Eosinophils (%) (Auto) 0.1 % Basophils (%) (Auto) 0.4 % Neutrophils # (Auto) 22.3 TH/MM3 Lymphocytes # (Auto) 1.7 TH/MM3 Monocytes # (Auto) 0.7 TH/MM3 Eosinophils # (Auto) 0.0 TH/MM3 Basophils # (Auto) 0.1 TH/MM3 CBC Comment DIFF FINAL Differential Comment Activated Partial 30.1 SEC Thromboplast Time Sodium Level 142 MEQ/L Potassium Level 3.3 MEQ/L Chloride Level 111 MEQ/L Carbon Dioxide Level 20.7 MEQ/L Anion Gap 10 MEQ/L Blood Urea Nitrogen 12 MG/DL Creatinine 0.90 MG/DL Estimat Glomerular Filtration 82 ML/MIN Rate Random Glucose 128 MG/DL Calcium Level 7.0 MG/DL Protein Corrected Calcium 8.1 MG/DL Magnesium Level 1.3 MG/DL Total Protein 5.1 GM/DL Digoxin Level 1.2 NG/ML Assessment and Plan Assessment and Plan AF - stable HTN- BP stable Apical thrombus- ECHO IV heparin is controversial at this point as his anemia is worse -risk bene for anticoagulation for thrombus ans AF controversial and I would suggest d/c -likely secondary to MT at some point -he is not a revascularization candidate secondary to comorbid conditions Cardiomyopathy- EF 35-40%, keep beta anthony for both rate control and cardiomyopathy - BP relatively too low for federica at this time -fluid and sodium restrict, evaluate need for lasix again in am Sepsis- per primary team Anemia- per primary team - stop plavix Jackelyn Guadalupe MD Jul 19, 2016 08:04
[2016-07-19] MEDS: SODIUM CHLORIDE 0.9% FLUSH 5 ML FLUSH IV FLUSH SCH ×2 (09:00→21:00)
[2016-07-19] MEDS ORDERED: DILTIAZEM-CD 240 MG CAP ER PO SCH (09:00)
[2016-07-19] MEDS: COLLAGENASE OINT 30 GM TUBE TOP SCH (09:00)
[2016-07-19] MEDS: MAGNESIUM SULFATE 1 GM PREMIX 100 ML IV SCH ×2 (10:23→11:38)
[2016-07-19] MEDS: DOCUSATE SODIUM 100 MG CAP PO SCH ×2 (10:25→21:00)
[2016-07-19] MEDS: ATORVASTATIN 20 MG TAB PO SCH (10:25)
[2016-07-19] MEDS: VANCOMYCIN 500 MG VIAL (FOR ORAL USE ONLY) PO SCH ×4 (10:25→21:21)
[2016-07-19] MEDS: METOPROLOL TARTRATE 25 MG TAB PO SCH ×2 (10:25→21:19)
[2016-07-19] MEDS: NYSTATIN SUSP 500,000 U/5 ML CUP SWISH-SWAL SCH ×4 (10:25→21:00)
[2016-07-19] MEDS: FAMOTIDINE 20 MG TAB PO SCH ×2 (10:25→21:19)
[2016-07-19] MEDS: DILTIAZEM-CD 120 MG CAP ER PO SCH (11:39)
[2016-07-19] MEDS: VANCOMYCIN INJ 1,250 MG in SODIUM CHLOR 0.9% 250 ML INJ 250 ML IV SCH (12:32)
--- NOTE | 2016-07-19 14:18 | HHI.PR ---
Subjective Remarks Follow-up C. difficile, sepsis. Patient is somewhat confused. Reports diarrhea. Denies nausea, vomiting, chest pain, dyspnea. Objective Vitals Vital Signs Date Time Temp Pulse Resp B/P Pulse Ox O2 Delivery O2 Flow Rate FiO2 07/19/16 12:53 97 Nasal Cannula 2.00 07/19/16 12:00 97.2 89 22 131/60 93 07/19/16 09:00 83 07/19/16 08:00 Nasal Cannula 2.00 07/19/16 08:00 98.1 83 22 130/65 97 07/19/16 04:16 98.2 83 20 130/58 96 07/19/16 00:04 97.4 75 20 129/57 94 07/18/16 21:30 99/50 Automatic Cuff 07/18/16 20:06 98.4 79 22 104/51 94 07/18/16 16:03 98.6 75 22 111/53 96 07/18/16 15:46 71 07/18/16 15:31 93 Nasal Cannula 2.00 I/O 07/18/16 07/18/16 07/18/16 07/19/16 07/19/16 07/19/16 07:00 15:00 23:00 07:00 15:00 23:00 Intake Total 240 ml 480 ml 2015 ml 240 ml Output Total 350 ml 450 ml 250 ml 400 ml Balance -110 ml 30 ml 1765 ml -160 ml Intake Oral 240 ml 480 ml 240 ml 240 ml IV Total 1775 ml Output Urine Total 350 ml 450 ml 250 ml 400 ml # Bowel Movements 2 1 1 Result Diagram: 07/19/16 0610 07/19/16 0610 Imaging Last Impressions Hip Aspiration/Injection 07/15/16 0000 Signed Impressions: Service Date/Time: July 15:55 - CONCLUSION: Uncomplicated aspiration as above. Aniceto Vasquez MD Chest X-Ray 07/12/161957 Signed Impressions: Service Date/Time: Tuesday, July 12, 2016 20:23 - CONCLUSION: 1. Postoperative CABG. Remote granulomatous disease. No effusion or pneumothorax. Tony Galloway MD Pelvis X-Ray 07/12/16 0000 Signed Impressions: Service Date/Time: Tuesday, July 12, 2016 20:17 - CONCLUSION: 1. Postoperative left total hip replacement. Osteopenia. No acute bony abnormalities. Tony Galloway MD Objective Remarks General: Elderly male in no acute distress. Heart: Regular rate and rhythm. No murmur. Lungs: Clear to auscultation bilaterally. No wheezes, rales, or rhonchi. Breathing is nonlabored. Abdomen: Soft, nontender, nondistended. Extremities: No lower extremity edema. Left knee in immobilizer brace. Psych: Confused. Urinary Catheter: Yes Vascular Central Line Catheter: No A/P Problem List: (1) Atrial fibrillation with RVR ICD Code: I48.91 Status: Acute (2) Sepsis ICD Code: A41.9 Status: Acute (3) Thrombus of left atrial appendage without antecedent myocardial infarction ICD Code: I51.3 Status: Acute (4) HTN (hypertension) ICD Code: I10 Status: Chronic (5) Type 2 diabetes mellitus ICD Code: E11.9 Status: Chronic (6) Hypocalcemia ICD Code: E83.51 Status: Resolved (7) Hypomagnesemia ICD Code: E83.42 Status: Acute (8) Hypokalemia ICD Code: E87.6 Status: Resolved (9) Chronic systolic CHF (congestive heart failure) ICD Code: I50.22 Status: Chronic (10) Fracture of left hip requiring operative repair ICD Code: S72.002A Status: Acute (11) Hx of coronary artery disease ICD Code: Z86.79 Status: Chronic (12) C. difficile colitis ICD Code: A04.7 Status: Acute Assessment and Plan 1. Atrial fibrillation with RVR: Continue oral Cardizem, metoprolol. Digoxin on hold. Plavix on hold. Continue heparin. 2. Left atrial thrombus: Appreciate cardiology recommendations. Continue heparin. 3. Sepsis secondary to C. difficile: Patient still having diarrhea, severe leukocytosis. Continue Flagyl, oral vancomycin for highly virulent strain of C. difficile. 4. Chronic systolic congestive heart failure with mild exacerbation: Exacerbation has resolved. Lasix on hold. Ejection fraction 40% on echocardiogram. Continue beta anthony. 5. Hypertension: Norvasc on hold. Continue metoprolol. 6. Left hip and right lateral heel cellulitis: Appreciate orthopedic surgery recommendations. Wound culture showed MRSA. Not felt to be septic joint per orthopedic surgery. 7. Anemia: Stable. 8. Left hip fracture status post ORIF in May 2016. Appreciate orthopedic surgery recommendations. Continue physical therapy. 9. Poor oral intake, mild hypoglycemia: Continue IV fluids with dextrose. 10. Peripheral vascular disease: Status post lower extremity bypass. Continue heparin. 11. Dementia: Continue supportive care. 12. Diabetes mellitus: Patient had been hypoglycemic secondary to poor oral intake. Monitor Accu-Cheks and cover with sliding scale insulin. 13. Hypomagnesemia: Supplement. 14. Hypokalemia: Resolved. 15. Hypocalcemia: Resolved. 16. GI prophylaxis: Pepcid. 17. DVT prophylaxis: Heparin. Problem Qualifiers (1) Type 2 diabetes mellitus: Qualified Code: E11.51 - Type 2 diabetes mellitus with diabetic peripheral angiopathy without gangrene, without long-term current use of insulin Karl Stone MD Jul 19, 2016 14:18
[2016-07-19 15:18] LABS: APTT (PATIENT) 34.7 SEC (24.3-30.1)
[2016-07-20] VITALS (9 sets, daily range): BP systolic 106–146; BP diastolic 52–65; PULSE 63–114; RESP 18–22; TEMP 97–98.2; O2SAT 94–97
[2016-07-20] MEDS: metroNIDAZOLE 500 MG INJ 100 ML IV SCH ×3 (02:29→17:49)
[2016-07-20] MEDS: CHLORHEXIDINE GLUCONATE 2 % 1 PACK (2 CLOTHS) TOP SCH (02:37)
[2016-07-20] MEDS: HEPARIN-D5W INJ 250 ML IV SCH (02:48)
[2016-07-20 03:15] LABS: AUTOMATED NEUTROPHIL # 16.9 TH/MM3 (1.8-7.7); BASOPHIL # 0.1 TH/MM3 (0-0.2); BASOPHIL % 0.6 % (0.0-2.0); HEMATOCRIT 22.7 % (39.0-51.0); HEMO FLAGS DIFF FINAL; LYMPH % 8.3 % (9.0-44.0); LYMPHOCYTE # 1.6 TH/MM3 (1.0-4.8); MEAN CELL VOLUME 86.5 FL (80.0-100.0); MEAN CORPUSCULAR HEMOGLOBIN 29.5 PG (27.0-34.0); MEAN CORPUSCULAR HGB CONC 34.2 % (32.0-36.0); MONO % 3.9 % (0.0-8.0); NEUT % 87.2 % (16.0-70.0); PLATELET COUNT 285 TH/MM3 (150-450); RED BLOOD COUNT 2.63 MIL/MM3 (4.50-5.90); WHITE BLOOD COUNT 19.4 TH/MM3 (4.0-11.0)
[2016-07-20 03:18] LABS: APTT (PATIENT) 39.7 SEC (24.3-30.1)
[2016-07-20 03:36] LABS: BICARBONATE 21.3 MEQ/L (21.0-32.0); MAGNESIUM 1.6 MG/DL (1.5-2.5)
[2016-07-20 03:39] LABS: POTASSIUM 2.9 MEQ/L (3.5-5.1)
[2016-07-20 03:57] LABS: CALCIUM-PROTEIN CORRECTED 8.3 MG/DL (8.5-10.1)
[2016-07-20] MEDS: POTASSIUM CHLOR 20 MEQ PREMIX 100 ML IV SCH ×2 (04:00→06:50)
[2016-07-20] MEDS ORDERED: POTASSIUM CL 40 MEQ/30 ML LIQ UDC PO ONE (04:00)
[2016-07-20] MEDS: INSULIN ASPART SUPPLEMENTAL SCALE SQ SCH ×4 (05:58→21:00)
--- NOTE | 2016-07-20 08:03 | PD.CARD.PN ---
Subjective Subjective Remarks Pt without complaints Objective Medications Current Medications Medications (Trade) Dose Ordered Sig/[place] Route Start Time Stop Time Status Last Admin (NS Flush) 2 ml UNSCH PRN IV FLUSH 07/13/16 00:30 (NS Flush) 2 ml BID IV FLUSH 07/13/16 09:00 07/18/16 21:00 (Tylenol) 650 mg Q6H PRN PO 07/13/16 00:30 (Morphine Inj) 2 mg Q2H PRN IV 07/13/16 00:30 07/16/16 05:01 (Colace) 100 mg BID PO 07/13/16 09:00 07/19/16 21:00 (Ambien) 5 mg HS PRN PO 07/13/16 00:30 Miscellaneous Information 1 Q361D XX 07/13/16 00:30 (Chlorhexidine 2% Cloth) Taper DAILY@04 TOP 07/13/16 04:00 07/09/17 03:59 07/19/16 04:44 (Chlorhexidine 2% Cloth) 3 pack UNSCH PRN TOP 07/13/16 00:30 (Lipitor) 20 mg DAILY PO 07/13/16 09:00 07/19/16 10:25 ([place] 5-325 Mg) 1 tab Q4H PRN PO 07/13/16 04:45 07/16/16 22:31 (Mycostatin Liq) 5 ml QID SWISH-SWAL 07/13/16 09:00 07/19/16 21:00 Tamsulosin HCl 0.4 mg 0.4 mg HS PO 07/13/16 21:00 Hold 07/17/16 21:04 (Vancomycin Consult Pharmacy) 0 ml @ 0 mls/hr UNSCH OTHER 07/13/16 05:15 (D50w (Vial) Inj) 25 ml UNSCH PRN IV PUSH 07/13/16 05:15 (Glucagon Inj) 1 mg UNSCH PRN OTHER 07/13/16 05:15 (Santyl Oint) 1 applic DAILY TOP 07/14/16 14:00 07/19/16 09:00 Famotidine 20 mg 20 mg Q12HR PO 07/16/16 21:00 07/19/16 21:19 (Vancomycin Inj/ NS 250 ml Inj) 262.5 ml @ 250 mls/hr Q24H IV 07/17/16 09:00 07/19/16 12:32 Miscellaneous Information SPECIFIC LAB TO BE DRAWN:VA... ONCE ONCE XX 07/20/16 08:45 07/20/16 08:46 (Cardizem) 30 mg Q4HR PRN PO 07/17/16 09:00 (Heparin Inj) 5,000 units UNSCH PRN IV 07/17/16 17:15 Heparin Sodium (Porcine) 2500 units 2,500 units UNSCH PRN IV 07/17/16 17:15 Heparin Sodium/ Dextrose 250 ml @ 0 mls/hr TITRATE IV 07/17/16 11:15 07/20/16 02:48 (Flagyl 500 Mg Inj) 100 ml @ 100 mls/hr Q8H IV 07/18/16 10:00 07/20/16 02:29 Metoprolol Tartrate 25 mg 25 mg Q12HR PO 07/18/16 21:00 07/19/16 21:19 (D5W 1000 ml Inj) 1,000 ml @ 84 mls/hr [id number] IV 07/18/16 11:30 07/19/16 21:32 (VANCOMYCIN for oral use only) 125 mg QID PO 07/18/16 18:00 07/19/16 21:21 (Cardizem Cd) 120 mg DAILY PO 07/19/16 11:00 07/19/16 11:39 Vital Signs / I&O Vital Signs Date Time Temp Pulse Resp B/P Pulse Ox O2 Delivery O2 Flow Rate FiO2 07/20/16 04:00 98.0 63 22 124/58 95 07/20/16 00:00 98.2 66 22 124/60 95 07/19/16 21:01 2.00 07/19/16 20:44 65 07/19/16 20:00 99.0 68 20 116/62 97 07/19/16 16:00 97.8 71 20 144/64 93 07/19/16 12:53 97 Nasal Cannula 2.00 07/19/16 12:00 97.2 89 22 131/60 93 07/19/16 09:00 83 I/O 07/19/16 07/19/16 07/19/16 07/20/16 07/20/16 07/20/16 07:00 15:00 23:00 07:00 15:00 23:00 Intake Total 240 ml 0 ml 720 ml 798 ml Output Total 400 ml 775 ml 200 ml 475 ml Balance -160 ml -775 ml 520 ml 323 ml Intake Oral 240 ml 0 ml 0 ml IV Total 720 ml 798 ml Output Urine Total 400 ml 775 ml 200 ml 475 ml # Bowel Movements 1 1 0 1 Physical Exam GENERAL: Well developed, well nourished. No acute distress. HEENT: Jugular venous pressure is normal. CHEST: Lungs clear to auscultation bilaterally. Unlabored respiratory effort. CARDIAC: regular rate and rhythm without S3, S4, or murmur. ABDOMEN: Soft, nontender, no hepatosplenomegaly. Bowel sounds present. EXTREMITIES: No clubbing, cyanosis, or edema. Laboratory Laboratory Tests Test 07/19/16 07/19/16 07/20/16 14:34 22:49 02:54 Activated Partial 34.7 SEC 43.0 SEC 39.7 SEC Thromboplast Time White Blood Count 19.4 TH/MM3 Red Blood Count 2.63 MIL/MM3 Hemoglobin 7.8 GM/DL Hematocrit 22.7 % Mean Corpuscular Volume 86.5 FL Mean Corpuscular Hemoglobin 29.5 PG Mean Corpuscular Hemoglobin 34.2 % Concent Red Cell Distribution Width 18.0 % Platelet Count 285 TH/MM3 Mean Platelet Volume 8.9 FL Neutrophils (%) (Auto) 87.2 % Lymphocytes (%) (Auto) 8.3 % Monocytes (%) (Auto) 3.9 % Eosinophils (%) (Auto) 0.0 % Basophils (%) (Auto) 0.6 % Neutrophils # (Auto) 16.9 TH/MM3 Lymphocytes # (Auto) 1.6 TH/MM3 Monocytes # (Auto) 0.8 TH/MM3 Eosinophils # (Auto) 0.0 TH/MM3 Basophils # (Auto) 0.1 TH/MM3 CBC Comment DIFF FINAL Differential Comment Sodium Level 141 MEQ/L Potassium Level 2.9 MEQ/L Chloride Level 109 MEQ/L Carbon Dioxide Level 21.3 MEQ/L Anion Gap 11 MEQ/L Blood Urea Nitrogen 8 MG/DL Creatinine 0.88 MG/DL Estimat Glomerular Filtration 84 ML/MIN Rate Random Glucose 129 MG/DL Calcium Level 7.2 MG/DL Protein Corrected Calcium 8.3 MG/DL Magnesium Level 1.6 MG/DL Total Protein 5.1 GM/DL Assessment and Plan Assessment and Plan AF - NSR today HTN- BP stable Apical thrombus- ECHO IV heparin is controversial at this point as his anemia is worse -risk bene for anticoagulation for thrombus and AF controversial, d/c heparin -likely secondary to [place] at some point -he is not a revascularization candidate secondary to comorbid conditions Cardiomyopathy- EF 35-40%, keep beta anthony for both rate control and cardiomyopathy - BP relatively too low for federica at this time -fluid and sodium restrict, evaluate need for lasix again in am Sepsis- per primary team Anemia- per primary team - stop plavix Jackelyn Guadalupe MD Jul 20, 2016 08:03
[2016-07-20] MEDS: DOCUSATE SODIUM 100 MG CAP PO SCH ×2 (08:18→22:35)
[2016-07-20] MEDS: VANCOMYCIN 500 MG VIAL (FOR ORAL USE ONLY) PO SCH ×4 (08:18→22:36)
[2016-07-20] MEDS: NYSTATIN SUSP 500,000 U/5 ML CUP SWISH-SWAL SCH ×4 (08:18→22:36)
[2016-07-20] MEDS: METOPROLOL TARTRATE 25 MG TAB PO SCH ×2 (08:18→22:35)
[2016-07-20] MEDS: FAMOTIDINE 20 MG TAB PO SCH ×2 (08:18→22:35)
[2016-07-20] MEDS: ATORVASTATIN 20 MG TAB PO SCH (08:18)
[2016-07-20] MEDS: DILTIAZEM-CD 120 MG CAP ER PO SCH (08:19)
[2016-07-20] MEDS: SODIUM CHLORIDE 0.9% FLUSH 5 ML FLUSH IV FLUSH SCH ×2 (08:19→22:35)
[2016-07-20] MEDS: COLLAGENASE OINT 30 GM TUBE TOP SCH (08:20)
[2016-07-20] MEDS ORDERED: PHARMACY ORDERED LAB XX ONE (08:45)
[2016-07-20] MEDS: VANCOMYCIN INJ 1,250 MG in SODIUM CHLOR 0.9% 250 ML INJ 250 ML IV SCH (08:53)
[2016-07-20 10:42] LABS: APTT (PATIENT) 36.6 SEC (24.3-30.1)
[2016-07-20] MEDS: DEXTROSE 5% IN WATE 1000ML INJ 1,000 ML IV SCH ×2 (11:47→22:36)
--- NOTE | 2016-07-20 14:09 | HHI.PR ---
Subjective Remarks Follow-up C. difficile, sepsis. The patient denies chest pain or dyspnea. States that his diarrhea is improving. No other complaints at this time. Objective Vitals Vital Signs Date Time Temp Pulse Resp B/P Pulse Ox O2 Delivery O2 Flow Rate FiO2 07/20/16 12:00 97.3 86 18 106/52 96 07/20/16 09:55 Nasal Cannula 2.00 21 07/20/16 08:00 97.0 77 18 146/65 97 07/20/16 04:00 98.0 63 22 124/58 95 07/20/16 00:00 98.2 66 22 124/60 95 07/19/16 21:01 2.00 07/19/16 20:44 65 07/19/16 20:00 99.0 68 20 116/62 97 07/19/16 16:00 97.8 71 20 144/64 93 I/O 07/19/16 07/19/16 07/19/16 07/20/16 07/20/16 07/20/16 07:00 15:00 23:00 07:00 15:00 23:00 Intake Total 240 ml 0 ml 720 ml 798 ml Output Total 400 ml 775 ml 200 ml 475 ml Balance -160 ml -775 ml 520 ml 323 ml Intake Oral 240 ml 0 ml 0 ml IV Total 720 ml 798 ml Output Urine Total 400 ml 775 ml 200 ml 475 ml # Bowel Movements 1 1 0 1 Result Diagram: 07/20/16 0254 07/20/16 0254 Imaging Last Impressions Hip Aspiration/Injection 07/15/16 0000 Signed Impressions: Service Date/Time: July 15:55 - CONCLUSION: Uncomplicated aspiration as above. Aniceto Vasquez MD Chest X-Ray 07/12/161957 Signed Impressions: Service Date/Time: Tuesday, July 12, 2016 20:23 - CONCLUSION: 1. Postoperative CABG. Remote granulomatous disease. No effusion or pneumothorax. Tony Galloway MD Pelvis X-Ray 07/12/16 0000 Signed Impressions: Service Date/Time: Tuesday, July 12, 2016 20:17 - CONCLUSION: 1. Postoperative left total hip replacement. Osteopenia. No acute bony abnormalities. Tony Galloway MD Objective Remarks General: Elderly male in no acute distress. Heart: Regular rate and rhythm. No murmur. Lungs: Clear to auscultation bilaterally. No wheezes, rales, or rhonchi. Breathing is nonlabored. Abdomen: Soft, nontender, nondistended. Extremities: No lower extremity edema. Psych: Confused. Not oriented to year, month, city. Urinary Catheter: Yes Assessment to: Continue [place] insert reason: Obstruction/Retention Vascular Central Line Catheter: No A/P Problem List: (1) Atrial fibrillation with RVR ICD Code: I48.91 Status: Acute (2) Sepsis ICD Code: A41.9 Status: Acute (3) Thrombus of left atrial appendage without antecedent myocardial infarction ICD Code: I51.3 Status: Acute (4) HTN (hypertension) ICD Code: I10 Status: Chronic (5) Type 2 diabetes mellitus ICD Code: E11.9 Status: Chronic (6) Hypocalcemia ICD Code: E83.51 Status: Resolved (7) Hypomagnesemia ICD Code: E83.42 Status: Acute (8) Hypokalemia ICD Code: E87.6 Status: Resolved (9) Chronic systolic CHF (congestive heart failure) ICD Code: I50.22 Status: Chronic (10) Fracture of left hip requiring operative repair ICD Code: S72.002A Status: Acute (11) Hx of coronary artery disease ICD Code: Z86.79 Status: Chronic (12) C. difficile colitis ICD Code: A04.7 Status: Acute Assessment and Plan 1. Atrial fibrillation with RVR: Continue oral Cardizem, metoprolol. Digoxin on hold. Plavix on hold. Heparin discontinued by cardiology. 2. Left atrial thrombus: Appreciate cardiology recommendations. Likely secondary to MS in the past. Heparin discontinued by cardiology. 3. Sepsis secondary to C. difficile: Patient still having diarrhea, severe leukocytosis. Continue Flagyl, oral vancomycin for highly virulent strain of C. difficile. 4. Chronic systolic congestive heart failure with mild exacerbation: Exacerbation has resolved. Lasix on hold. Ejection fraction 40% on echocardiogram. Continue beta anthony. 5. Hypertension: Norvasc on hold. Continue metoprolol. 6. Left hip and right lateral heel cellulitis: Appreciate orthopedic surgery recommendations. Wound culture showed MRSA. Not felt to be septic joint per orthopedic surgery. 7. Anemia: Stable. 8. Left hip fracture status post ORIF in May 2016. Appreciate orthopedic surgery recommendations. Continue physical therapy. 9. Poor oral intake, mild hypoglycemia: Continue IV fluids with dextrose. 10. Peripheral vascular disease: Status post lower extremity bypass. 11. Dementia: Continue supportive care. 12. Diabetes mellitus: Patient had been hypoglycemic secondary to poor oral intake. Monitor Accu-Cheks and cover with sliding scale insulin. 13. Hypomagnesemia: Improved. 14. Hypokalemia: Supplement and monitor. 15. Hypocalcemia: Resolved. 16. GI prophylaxis: Pepcid. 17. DVT prophylaxis: Heparin. Problem Qualifiers (1) Type 2 diabetes mellitus: Qualified Code: E11.51 - Type 2 diabetes mellitus with diabetic peripheral angiopathy without gangrene, without long-term current use of insulin Karl Stone MD Jul 20, 2016 14:09
--- NOTE | 2016-07-20 17:13 | HHI.IDPN ---
Note Infectious Disease Note Patient is confused. Thinks he is at home. No complaints. No distress. Denies abdominal pain. Afebrile. ANTIBIOTICS: Vancomycin. Flagyl Vanco PO. OBJECTIVE: Vital Signs Date Time Temp Pulse Resp B/P Pulse Ox O2 Delivery O2 Flow Rate FiO2 07/20/16 14:18 94 21 07/20/16 12:00 97.3 86 18 106/52 96 07/20/16 09:55 Nasal Cannula 2.00 21 07/20/16 08:02 75 07/20/16 08:00 97.0 77 18 146/65 97 07/20/16 04:00 98.0 63 22 124/58 95 07/20/16 00:00 98.2 66 22 124/60 95 07/19/16 21:01 2.00 07/19/16 20:44 65 07/19/16 20:00 99.0 68 20 116/62 97 07/19/16 07/19/16 07/20/16 15:00 23:00 07:00 Intake Total 0 ml 720 ml 798 ml Output Total 775 ml 200 ml 475 ml Balance -775 ml 520 ml 323 ml Intake Oral 0 ml 0 ml IV Total 720 ml 798 ml Output Urine Total 775 ml 200 ml 475 ml # Bowel Movements 1 0 1 Laboratory Tests Test 07/18/16 07/19/16 07/20/16 22:53 06:10 02:54 Hemoglobin 8.7 GM/DL 7.9 GM/DL 7.8 GM/DL Hematocrit 26.5 % 23.9 % 22.7 % White Blood Count 24.9 TH/MM3 19.4 TH/MM3 Red Blood Count 2.70 MIL/MM3 2.63 MIL/MM3 Mean Corpuscular Volume 88.6 FL 86.5 FL Mean Corpuscular Hemoglobin 29.3 PG 29.5 PG Mean Corpuscular Hemoglobin 33.1 % 34.2 % Concent Red Cell Distribution Width 17.9 % 18.0 % Platelet Count 282 TH/MM3 285 TH/MM3 Mean Platelet Volume 9.4 FL 8.9 FL Neutrophils (%) (Auto) 89.9 % 87.2 % Lymphocytes (%) (Auto) 6.9 % 8.3 % Monocytes (%) (Auto) 2.7 % 3.9 % Eosinophils (%) (Auto) 0.1 % 0.0 % Basophils (%) (Auto) 0.4 % 0.6 % Neutrophils # (Auto) 22.3 TH/MM3 16.9 TH/MM3 Lymphocytes # (Auto) 1.7 TH/MM3 1.6 TH/MM3 Monocytes # (Auto) 0.7 TH/MM3 0.8 TH/MM3 Eosinophils # (Auto) 0.0 TH/MM3 0.0 TH/MM3 Basophils # (Auto) 0.1 TH/MM3 0.1 TH/MM3 CBC Comment DIFF FINAL DIFF FINAL Differential Comment Laboratory Tests Test 07/19/16 07/20/16 06:10 02:54 Sodium Level 142 MEQ/L 141 MEQ/L Potassium Level 3.3 MEQ/L 2.9 MEQ/L Chloride Level 111 MEQ/L 109 MEQ/L Carbon Dioxide Level 20.7 MEQ/L 21.3 MEQ/L Anion Gap 10 MEQ/L 11 MEQ/L Blood Urea Nitrogen 12 MG/DL 8 MG/DL Creatinine 0.90 MG/DL 0.88 MG/DL Estimat Glomerular Filtration 82 ML/MIN 84 ML/MIN Rate Random Glucose 128 MG/DL 129 MG/DL Calcium Level 7.0 MG/DL 7.2 MG/DL Protein Corrected Calcium 8.1 MG/DL 8.3 MG/DL Magnesium Level 1.3 MG/DL 1.6 MG/DL Total Protein 5.1 GM/DL 5.1 GM/DL GENERAL: No acute distress. HEENT: PERRL. EOMI, No icterus. NECK: Supple, no adenopathy. LUNGS: Breath sounds clear. CARDIAC: Regular rate and rhythm. ABDOMEN: (+) BS, Soft, non tender. MUSCULOSKELETAL: R. hip wound without drainage. Incision clean. EXTREMITIES: No CCE. SKIN: No rash. ASSESSMENT: R. hip wound infection - MRSA. Post R. hip arthroplasty. C. diff colitis. Leukocytosis - C. diff vs hip infection. Improving. PLAN. Continue Vancomycin IV. Continue Flagyl IV for c. diff. Continue Vancomycin PO for c. diff. hypervirulent strain. Monitor clinical response. Pablo Draper MD Jul 20, 2016 17:13
[2016-07-21] VITALS (10 sets, daily range): BP systolic 115–145; BP diastolic 61–78; PULSE 53–76; RESP 20–24; TEMP 97.4–98.8; O2SAT 93–100
[2016-07-21] MEDS: metroNIDAZOLE 500 MG INJ 100 ML IV SCH ×3 (01:28→17:18)
[2016-07-21] MEDS: CHLORHEXIDINE GLUCONATE 2 % 1 PACK (2 CLOTHS) TOP SCH (03:02)
[2016-07-21] MEDS: ACETAMINOPHEN/HYDROcodone 325 MG/5 MG TAB PO PRN (04:31)
[2016-07-21] MEDS: INSULIN ASPART SUPPLEMENTAL SCALE SQ SCH ×4 (05:33→20:26)
--- NOTE | 2016-07-21 07:35 | PD.CARD.PN ---
Subjective Subjective Remarks PT without compliant Objective Medications Current Medications Medications (Trade) Dose Ordered Sig/[place] Route Start Time Stop Time Status Last Admin (NS Flush) 2 ml UNSCH PRN IV FLUSH 07/13/16 00:30 (NS Flush) 2 ml BID IV FLUSH 07/13/16 09:00 07/20/16 22:35 (Tylenol) 650 mg Q6H PRN PO 07/13/16 00:30 (Morphine Inj) 2 mg Q2H PRN IV 07/13/16 00:30 07/16/16 05:01 (Colace) 100 mg BID PO 07/13/16 09:00 07/20/16 22:35 (Ambien) 5 mg HS PRN PO 07/13/16 00:30 Miscellaneous Information 1 Q361D XX 07/13/16 00:30 (Chlorhexidine 2% Cloth) Taper DAILY@04 TOP 07/13/16 04:00 07/09/17 03:59 07/19/16 04:44 (Chlorhexidine 2% Cloth) 3 pack UNSCH PRN TOP 07/13/16 00:30 (Lipitor) 20 mg DAILY PO 07/13/16 09:00 07/20/16 08:18 ([place] 5-325 Mg) 1 tab Q4H PRN PO 07/13/16 04:45 07/21/16 04:31 (Mycostatin Liq) 5 ml QID SWISH-SWAL 07/13/16 09:00 07/20/16 22:36 Tamsulosin HCl 0.4 mg 0.4 mg HS PO 07/13/16 21:00 Hold 07/17/16 21:04 (Vancomycin Consult Pharmacy) 0 ml @ 0 mls/hr UNSCH OTHER 07/13/16 05:15 (D50w (Vial) Inj) 25 ml UNSCH PRN IV PUSH 07/13/16 05:15 (Glucagon Inj) 1 mg UNSCH PRN OTHER 07/13/16 05:15 Famotidine 20 mg 20 mg Q12HR PO 07/16/16 21:00 07/20/16 22:35 (Vancomycin Inj/ NS 250 ml Inj) 262.5 ml @ 250 mls/hr Q24H IV 07/17/16 09:00 07/20/16 08:53 Diltiazem HCl 30 mg 30 mg Q4HR PRN PO 07/17/16 09:00 (Flagyl 500 Mg Inj) 100 ml @ 100 mls/hr Q8H IV 07/18/16 10:00 07/21/16 01:28 Metoprolol Tartrate 25 mg 25 mg Q12HR PO 07/18/16 21:00 07/20/16 22:35 (D5W 1000 ml Inj) 1,000 ml @ 84 mls/hr [id number] IV 07/18/16 11:30 07/20/16 22:36 (VANCOMYCIN for oral use only) 125 mg QID PO 07/18/16 18:00 07/20/16 22:36 (Cardizem Cd) 120 mg DAILY PO 07/19/16 11:00 07/20/16 08:19 Miscellaneous Information SPECIFIC LAB TO BE DRAWN:[facility]... ONCE ONCE XX 07/22/16 08:45 07/22/16 08:46 Vital Signs / I&O Vital Signs Date Time Temp Pulse Resp B/P Pulse Ox O2 Delivery O2 Flow Rate FiO2 07/21/16 04:00 98.8 76 20 142/63 94 07/21/16 00:00 97.7 70 20 132/63 93 07/20/16 22:30 Nasal Cannula 2.00 07/20/16 20:00 98.0 78 22 134/54 94 07/20/16 19:49 114 07/20/16 16:00 98.0 104 18 111/54 96 07/20/16 14:18 94 21 07/20/16 12:00 97.3 86 18 106/52 96 07/20/16 09:55 Nasal Cannula 2.00 21 07/20/16 08:02 75 07/20/16 08:00 97.0 77 18 146/65 97 I/O 07/20/16 07/20/16 07/20/16 07/21/16 07/21/16 07/21/16 07:00 15:00 23:00 07:00 15:00 23:00 Intake Total 798 ml 360 ml 0 ml 0 ml Output Total 475 ml 600 ml 300 ml 550 ml Balance 323 ml -240 ml -300 ml -550 ml Intake Oral 0 ml 360 ml 0 ml 0 ml IV Total 798 ml Output Urine Total 475 ml 600 ml 300 ml 550 ml # Bowel Movements 1 0 1 0 Physical Exam GENERAL: Well developed, well nourished. No acute distress. HEENT: Jugular venous pressure is normal. CHEST: Lungs clear to auscultation bilaterally. Unlabored respiratory effort. CARDIAC: regular rate and rhythm without S3, S4, or murmur. ABDOMEN: Soft, nontender, no hepatosplenomegaly. Bowel sounds present. EXTREMITIES: No clubbing, cyanosis, or edema. Laboratory Laboratory Tests Test 07/20/16 07/20/16 08:50 10:20 Vancomycin Level Trough 20.1 MCG/ML Activated Partial 36.6 SEC Thromboplast Time Assessment and Plan Assessment and Plan AF - NSR today HTN- BP stable Apical thrombus- -risk bene for anticoagulation for thrombus and AF controversial at best => off anticoagulation at this point -likely secondary to CA at some point -he is not a revascularization candidate secondary to comorbid conditions Cardiomyopathy- EF 35-40%, keep beta anthony for both rate control and cardiomyopathy - BP relatively too low for federica at this time -fluid and sodium restricted and doing well Sepsis- per primary team Anemia- per primary team -off anticoagulation with Hb <7 Jackelyn Guadalupe MD Jul 21, 2016 07:35
[2016-07-21] MEDS: SODIUM CHLORIDE 0.9% FLUSH 5 ML FLUSH IV FLUSH SCH ×2 (08:22→20:24)
[2016-07-21] MEDS: ATORVASTATIN 20 MG TAB PO SCH (08:22)
[2016-07-21] MEDS: FAMOTIDINE 20 MG TAB PO SCH ×2 (08:22→20:25)
[2016-07-21] MEDS: DILTIAZEM-CD 120 MG CAP ER PO SCH (08:22)
[2016-07-21] MEDS: METOPROLOL TARTRATE 25 MG TAB PO SCH ×2 (08:22→20:25)
[2016-07-21] MEDS: DOCUSATE SODIUM 100 MG CAP PO SCH ×2 (08:23→20:25)
[2016-07-21] MEDS: VANCOMYCIN 500 MG VIAL (FOR ORAL USE ONLY) PO SCH ×4 (08:23→20:26)
[2016-07-21] MEDS: NYSTATIN SUSP 500,000 U/5 ML CUP SWISH-SWAL SCH ×4 (08:23→20:26)
[2016-07-21 10:19] LABS: BICARBONATE 22.5 MEQ/L (21.0-32.0)
[2016-07-21 10:35] LABS: CALCIUM-PROTEIN CORRECTED 8.3 MG/DL (8.5-10.1)
[2016-07-21 10:40] LABS: POTASSIUM 2.9 MEQ/L (3.5-5.1)
[2016-07-21] MEDS: VANCOMYCIN INJ 1,250 MG in SODIUM CHLOR 0.9% 250 ML INJ 250 ML IV SCH (12:11)
[2016-07-21] MEDS: DEXTROSE 5% IN WATE 1000ML INJ 1,000 ML IV SCH ×2 (12:15→20:25)
--- NOTE | 2016-07-21 13:57 | HHI.PR ---
Subjective Remarks Follow-up C. difficile, sepsis. The patient is somewhat lethargic today, but does answer questions. Denies pain currently. Objective Vitals Vital Signs Date Time Temp Pulse Resp B/P Pulse Ox O2 Delivery O2 Flow Rate FiO2 07/21/16 12:22 98.3 58 24 139/63 98 07/21/16 10:18 Nasal Cannula 2.00 21 07/21/16 08:02 97.4 61 22 145/63 95 07/21/16 04:00 98.8 76 20 142/63 94 07/21/16 00:00 97.7 70 20 132/63 93 07/20/16 22:30 Nasal Cannula 2.00 07/20/16 20:00 98.0 78 22 134/54 94 07/20/16 19:49 114 07/20/16 16:00 98.0 104 18 111/54 96 07/20/16 14:18 94 21 I/O 07/20/16 07/20/16 07/20/16 07/21/16 07/21/16 07/21/16 07:00 15:00 23:00 07:00 15:00 23:00 Intake Total 798 ml 360 ml 0 ml 0 ml Output Total 475 ml 600 ml 300 ml 550 ml Balance 323 ml -240 ml -300 ml -550 ml Intake Oral 0 ml 360 ml 0 ml 0 ml IV Total 798 ml Output Urine Total 475 ml 600 ml 300 ml 550 ml # Bowel Movements 1 0 1 0 Result Diagram: 07/20/16 0254 07/21/16 0920 Imaging Last Impressions Hip Aspiration/Injection 07/15/16 0000 Signed Impressions: Service Date/Time: July 15:55 - CONCLUSION: Uncomplicated aspiration as above. Aniceto Vasquez MD Chest X-Ray 07/12/161957 Signed Impressions: Service Date/Time: Tuesday, July 12, 2016 20:23 - CONCLUSION: 1. Postoperative CABG. Remote granulomatous disease. No effusion or pneumothorax. Tony Galloway MD Pelvis X-Ray 07/12/16 0000 Signed Impressions: Service Date/Time: Tuesday, July 12, 2016 20:17 - CONCLUSION: 1. Postoperative left total hip replacement. Osteopenia. No acute bony abnormalities. Tony Galloway MD Objective Remarks General: Elderly male in no acute distress. Heart: Regular rate and rhythm. No murmur. Lungs: Clear to auscultation bilaterally. No wheezes, rales, or rhonchi. Breathing is nonlabored. Abdomen: Soft, nontender, nondistended. Extremities: No lower extremity edema. Psych: Confused. Procedures 07/15/16 left hip aspiration Urinary Catheter: Yes Assessment to: Continue [place] insert reason: Measure Accurate Output Vascular Central Line Catheter: No A/P Problem List: (1) Atrial fibrillation with RVR ICD Code: I48.91 Status: Acute (2) Sepsis ICD Code: A41.9 Status: Acute (3) Thrombus of left atrial appendage without antecedent myocardial infarction ICD Code: I51.3 Status: Acute (4) HTN (hypertension) ICD Code: I10 Status: Chronic (5) Type 2 diabetes mellitus ICD Code: E11.9 Status: Chronic (6) Hypocalcemia ICD Code: E83.51 Status: Resolved (7) Hypomagnesemia ICD Code: E83.42 Status: Acute (8) Hypokalemia ICD Code: E87.6 Status: Resolved (9) Chronic systolic CHF (congestive heart failure) ICD Code: I50.22 Status: Chronic (10) Fracture of left hip requiring operative repair ICD Code: S72.002A Status: Acute (11) Hx of coronary artery disease ICD Code: Z86.79 Status: Chronic (12) C. difficile colitis ICD Code: A04.7 Status: Acute Assessment and Plan 1. Atrial fibrillation with RVR: Continue oral Cardizem, metoprolol. Digoxin on hold. Plavix on hold. Heparin discontinued by cardiology. 2. Left atrial thrombus: Appreciate cardiology recommendations. Likely secondary to MT in the past. Heparin discontinued by cardiology. 3. Sepsis secondary to C. difficile: Patient still having diarrhea, severe leukocytosis. Continue Flagyl, oral vancomycin for highly virulent strain of C. difficile. 4. Chronic systolic congestive heart failure with mild exacerbation: Exacerbation has resolved. Lasix on hold. Ejection fraction 40% on echocardiogram. Continue beta anthony. 5. Hypertension: Norvasc on hold. Continue metoprolol. 6. Left hip and right lateral heel cellulitis: Appreciate orthopedic surgery recommendations. Wound culture showed MRSA. Not felt to be septic joint per orthopedic surgery. 7. Anemia: Stable. 8. Left hip fracture status post ORIF in May 2016. Appreciate orthopedic surgery recommendations. Continue physical therapy. 9. Poor oral intake, mild hypoglycemia: Continue IV fluids with dextrose. 10. Peripheral vascular disease: Status post lower extremity bypass. 11. Dementia: Continue supportive care. 12. Diabetes mellitus: Patient had been hypoglycemic secondary to poor oral intake. Monitor Accu-Cheks and cover with sliding scale insulin. 13. Hypomagnesemia: Improved. 14. Hypokalemia: Supplement potassium and monitor. 15. Hypocalcemia: Resolved. 16. GI prophylaxis: Pepcid. 17. DVT prophylaxis: Heparin. Problem Qualifiers (1) Type 2 diabetes mellitus: Qualified Code: E11.51 - Type 2 diabetes mellitus with diabetic peripheral angiopathy without gangrene, without long-term current use of insulin Karl Stone MD Jul 21, 2016 13:57
[2016-07-21] MEDS: POTASSIUM CHLOR 20 MEQ PREMIX 100 ML IV SCH (15:27)
[2016-07-22] VITALS (8 sets, daily range): BP systolic 136–159; BP diastolic 61–77; PULSE 54–70; RESP 18–22; TEMP 97–97.9; O2SAT 92–98
[2016-07-22] MEDS: metroNIDAZOLE 500 MG INJ 100 ML IV SCH ×3 (00:40→16:45)
[2016-07-22] MEDS: CHLORHEXIDINE GLUCONATE 2 % 1 PACK (2 CLOTHS) TOP SCH (03:52)
[2016-07-22] MEDS: INSULIN ASPART SUPPLEMENTAL SCALE SQ SCH ×4 (05:33→21:00)
[2016-07-22 05:46] LABS: AUTOMATED NEUTROPHIL # 14.5 TH/MM3 (1.8-7.7); BASOPHIL % 0.3 % (0.0-2.0); EOSINOPHIL % 0.3 % (0.0-4.0); HEMATOCRIT 25.2 % (39.0-51.0); HEMO FLAGS DIFF FINAL; LYMPH % 7.4 % (9.0-44.0); LYMPHOCYTE # 1.2 TH/MM3 (1.0-4.8); MEAN CELL VOLUME 88.9 FL (80.0-100.0); MEAN CORPUSCULAR HEMOGLOBIN 29.1 PG (27.0-34.0); MEAN CORPUSCULAR HGB CONC 32.8 % (32.0-36.0); MONO % 5.8 % (0.0-8.0); NEUT % 86.2 % (16.0-70.0); PLATELET COUNT 344 TH/MM3 (150-450); RED BLOOD COUNT 2.83 MIL/MM3 (4.50-5.90); RED CELL DISTRIBUTION WIDTH 18.4 % (11.6-17.2); WHITE BLOOD COUNT 16.8 TH/MM3 (4.0-11.0)
[2016-07-22 06:22] LABS: BICARBONATE 20.6 MEQ/L (21.0-32.0); MAGNESIUM 1.5 MG/DL (1.5-2.5); POTASSIUM 3.1 MEQ/L (3.5-5.1)
[2016-07-22] MEDS ORDERED: MAGNESIUM SULFATE 1 GM PREMIX 100 ML IV ONE (08:15)
[2016-07-22] MEDS ORDERED: PHARMACY ORDERED LAB XX ONE (08:45)
[2016-07-22] MEDS: SODIUM CHLORIDE 0.9% FLUSH 5 ML FLUSH IV FLUSH SCH ×2 (09:00→23:07)
[2016-07-22] MEDS: VANCOMYCIN 500 MG VIAL (FOR ORAL USE ONLY) PO SCH ×5 (09:00→23:08)
[2016-07-22] MEDS: VANCOMYCIN INJ 1,250 MG in SODIUM CHLOR 0.9% 250 ML INJ 250 ML IV SCH ×2 (09:00→10:02)
[2016-07-22] MEDS: FAMOTIDINE 20 MG TAB PO SCH ×2 (09:54→23:08)
[2016-07-22] MEDS: METOPROLOL TARTRATE 25 MG TAB PO SCH ×2 (09:54→23:08)
[2016-07-22] MEDS: DOCUSATE SODIUM 100 MG CAP PO SCH ×2 (09:54→23:07)
[2016-07-22] MEDS: DILTIAZEM-CD 120 MG CAP ER PO SCH (09:54)
[2016-07-22] MEDS: ATORVASTATIN 20 MG TAB PO SCH (09:54)
[2016-07-22] MEDS: NYSTATIN SUSP 500,000 U/5 ML CUP SWISH-SWAL SCH ×4 (09:54→23:08)
[2016-07-22] MEDS: POTASSIUM CHLOR 20 MEQ PREMIX 100 ML IV SCH ×2 (10:01→10:15)
[2016-07-22] MEDS: DEXTROSE 5% IN WATE 1000ML INJ 1,000 ML IV SCH (10:50)
--- NOTE | 2016-07-22 13:03 | HHI.PR ---
Subjective Remarks Follow-up C. difficile, sepsis. The patient states that he does not feel well today. He is somewhat confused. He reports chest pain, but is unable to describe it further. He also is unable to describe when it started. He states " 3 days ago, 2 weeks ago, I'm not sure". Objective Vitals Vital Signs Date Time Temp Pulse Resp B/P Pulse Ox O2 Delivery O2 Flow Rate FiO2 07/22/16 12:00 97.0 66 20 136/77 98 07/22/16 11:21 97 Nasal Cannula 2.00 07/22/16 08:00 97.8 68 18 159/70 97 07/22/16 04:00 97.6 69 20 146/66 98 07/22/16 00:00 97.3 58 22 151/69 98 07/21/16 21:45 53 07/21/16 20:33 Nasal Cannula 2.00 07/21/16 20:00 97.5 70 22 115/78 100 07/21/16 18:26 97 Nasal Cannula 4.00 07/21/16 16:02 98.4 63 22 136/61 96 07/21/16 14:29 93 Nasal Cannula 5.00 I/O 07/21/16 07/21/16 07/21/16 07/22/16 07/22/16 07/22/16 07:00 15:00 23:00 07:00 15:00 23:00 Intake Total 0 ml 240 ml 120 ml Output Total 550 ml 100 ml 650 ml 600 ml Balance -550 ml 140 ml -650 ml -480 ml Intake Oral 0 ml 240 ml 120 ml Output Urine Total 550 ml 100 ml 650 ml 600 ml # Bowel Movements 0 0 Result Diagram: 07/22/16 0519 07/22/16 0519 Imaging Last Impressions Hip Aspiration/Injection 07/15/16 0000 Signed Impressions: Service Date/Time: July 15:55 - CONCLUSION: Uncomplicated aspiration as above. Aniceto Vasquez MD Chest X-Ray 07/12/161957 Signed Impressions: Service Date/Time: Tuesday, July 12, 2016 20:23 - CONCLUSION: 1. Postoperative CABG. Remote granulomatous disease. No effusion or pneumothorax. Tony Galloway MD Pelvis X-Ray 07/12/16 0000 Signed Impressions: Service Date/Time: Tuesday, July 12, 2016 20:17 - CONCLUSION: 1. Postoperative left total hip replacement. Osteopenia. No acute bony abnormalities. Tony Galloway MD Objective Remarks General: Thin elderly male in no acute distress. Heart: Regular rate and rhythm. No murmur. No chest wall tenderness. Lungs: Clear to auscultation bilaterally. No wheezes, rales, or rhonchi. Breathing is nonlabored. Abdomen: Soft, nontender, nondistended. Extremities: No lower extremity edema. Psych: Confused. Procedures 07/15/16 left hip aspiration Urinary Catheter: Yes Assessment to: Continue [place] insert reason: Prolonged Immobilization Vascular Central Line Catheter: No A/P Problem List: (1) Atrial fibrillation with RVR ICD Code: I48.91 Status: Acute (2) Sepsis ICD Code: A41.9 Status: Acute (3) Thrombus of left atrial appendage without antecedent myocardial infarction ICD Code: I51.3 Status: Acute (4) HTN (hypertension) ICD Code: I10 Status: Chronic (5) Type 2 diabetes mellitus ICD Code: E11.9 Status: Chronic (6) Hypocalcemia ICD Code: E83.51 Status: Resolved (7) Hypomagnesemia ICD Code: E83.42 Status: Acute (8) Hypokalemia ICD Code: E87.6 Status: Resolved (9) Chronic systolic CHF (congestive heart failure) ICD Code: I50.22 Status: Chronic (10) Fracture of left hip requiring operative repair ICD Code: S72.002A Status: Acute (11) Hx of coronary artery disease ICD Code: Z86.79 Status: Chronic (12) C. difficile colitis ICD Code: A04.7 Status: Acute Assessment and Plan 1. Atrial fibrillation with RVR: Continue oral Cardizem, metoprolol. Digoxin on hold. Plavix on hold. Heparin discontinued by cardiology. 2. Left atrial thrombus: Appreciate cardiology recommendations. Likely secondary to MT in the past. Heparin discontinued by cardiology. 3. Sepsis secondary to C. difficile: Patient still having diarrhea, severe leukocytosis. Continue Flagyl, oral vancomycin for highly virulent strain of C. difficile. 4. Chronic systolic congestive heart failure with mild exacerbation: Exacerbation has resolved. Lasix on hold. Ejection fraction 40% on echocardiogram. Continue beta anthony. 5. Hypertension: Norvasc on hold. Continue metoprolol. 6. Left hip and right lateral heel cellulitis: Appreciate orthopedic surgery recommendations. Wound culture showed MRSA. Not felt to be septic joint per orthopedic surgery. 7. Anemia: Stable. 8. Left hip fracture status post ORIF in May 2016. Appreciate orthopedic surgery recommendations. Continue physical therapy. 9. Poor oral intake, mild hypoglycemia: Glucose improved. Continue IV fluids. 10. Peripheral vascular disease: Status post lower extremity bypass. 11. Dementia: Continue supportive care. 12. Diabetes mellitus: Monitor Accu-Cheks and cover with sliding scale insulin. 13. Hypomagnesemia: Improved. 14. Hypokalemia: Supplement potassium and monitor. 15. Hypocalcemia: Resolved. 16. GI prophylaxis: Pepcid. 17. DVT prophylaxis: Heparin. 18. Chest pain: Patient is unable to provide further history. Will check cardiac enzymes and EKG. Problem Qualifiers (1) Type 2 diabetes mellitus: Qualified Code: E11.51 - Type 2 diabetes mellitus with diabetic peripheral angiopathy without gangrene, without long-term current use of insulin Karl Stone MD Jul 22, 2016 13:03
[2016-07-22 15:40] LABS: CREATINE KINASE 121 U/L (39-308)
[2016-07-22 16:21] LABS: CKMB 2.4 NG/ML (0.5-3.6)
[2016-07-23] VITALS (8 sets, daily range): BP systolic 124–149; BP diastolic 61–65; PULSE 59–79; RESP 18–20; TEMP 97.3–97.9; O2SAT 95–99
[2016-07-23] MEDS: CHLORHEXIDINE GLUCONATE 2 % 1 PACK (2 CLOTHS) TOP SCH (04:00)
[2016-07-23] MEDS: metroNIDAZOLE 500 MG INJ 100 ML IV SCH ×3 (04:19→17:35)
[2016-07-23] MEDS: DEXTROSE 5% IN WATE 1000ML INJ 1,000 ML IV SCH (04:20)
[2016-07-23] MEDS: INSULIN ASPART SUPPLEMENTAL SCALE SQ SCH ×4 (06:24→21:00)
[2016-07-23 07:03] LABS: BICARBONATE 21.3 MEQ/L (21.0-32.0); MAGNESIUM 1.5 MG/DL (1.5-2.5)
[2016-07-23 07:06] LABS: AUTOMATED NEUTROPHIL # 13.2 TH/MM3 (1.8-7.7); BASOPHIL % 0.1 % (0.0-2.0); EOSINOPHIL # 0.1 TH/MM3 (0-0.4); EOSINOPHIL % 0.5 % (0.0-4.0); HEMATOCRIT 24.5 % (39.0-51.0); HEMO FLAGS DIFF FINAL; LYMPH % 8.6 % (9.0-44.0); LYMPHOCYTE # 1.3 TH/MM3 (1.0-4.8); MEAN CELL VOLUME 88.4 FL (80.0-100.0); MEAN CORPUSCULAR HEMOGLOBIN 28.9 PG (27.0-34.0); MEAN CORPUSCULAR HGB CONC 32.7 % (32.0-36.0); MONO % 5.4 % (0.0-8.0); NEUT % 85.4 % (16.0-70.0); PLATELET COUNT 365 TH/MM3 (150-450); RED BLOOD COUNT 2.77 MIL/MM3 (4.50-5.90); RED CELL DISTRIBUTION WIDTH 18.5 % (11.6-17.2); WHITE BLOOD COUNT 15.4 TH/MM3 (4.0-11.0)
[2016-07-23 07:19] LABS: CALCIUM-PROTEIN CORRECTED 8.5 MG/DL (8.5-10.1)
[2016-07-23] MEDS: NS + KCL 20 MEQ INJ 1,000 ML IV SCH (08:49)
[2016-07-23] MEDS: POTASSIUM CHLOR 20 MEQ PREMIX 100 ML IV SCH ×2 (08:49→11:52)
[2016-07-23] MEDS: VANCOMYCIN INJ 1,250 MG in SODIUM CHLOR 0.9% 250 ML INJ 250 ML IV SCH (08:51)
[2016-07-23] MEDS: SODIUM CHLORIDE 0.9% FLUSH 5 ML FLUSH IV FLUSH SCH ×2 (08:54→21:00)
[2016-07-23] MEDS: VANCOMYCIN 500 MG VIAL (FOR ORAL USE ONLY) PO SCH ×4 (08:56→21:01)
[2016-07-23] MEDS: DILTIAZEM-CD 120 MG CAP ER PO SCH (08:57)
[2016-07-23] MEDS: DOCUSATE SODIUM 100 MG CAP PO SCH ×2 (08:57→21:00)
[2016-07-23] MEDS: NYSTATIN SUSP 500,000 U/5 ML CUP SWISH-SWAL SCH ×4 (08:57→21:01)
[2016-07-23] MEDS: ATORVASTATIN 20 MG TAB PO SCH (08:57)
[2016-07-23] MEDS: FAMOTIDINE 20 MG TAB PO SCH ×2 (08:57→21:01)
[2016-07-23] MEDS: METOPROLOL TARTRATE 25 MG TAB PO SCH ×2 (08:57→21:01)
--- NOTE | 2016-07-23 09:52 | PD.ORT.PN ---
Subjective Subjective Remarks 76yo male s/p left bipolar arthroplasty for femoral neck fracture. His procedure was originally delayed several weeks secondary to renal issues and aspiration pneumonia. Pt. d/c'd to rehab but sent home after ins. coverage . Rest of hx not clear. Pt readmitted recently with diabetic ulcer, generalized decline in health and decubiti including operative site. He has not had out patient f/u. Unclear as to functional status as he has dementia and no family available. Pt laying in bed, pleasantly confused. History unreliable from patient. No other complaints noted. Objective Vitals Vital Signs Date Time Temp Pulse Resp B/P Pulse Ox O2 Delivery O2 Flow Rate FiO2 07/23/16 08:00 97.7 68 20 147/65 98 07/23/16 04:00 97.9 74 18 128/61 98 07/23/16 00:27 97.3 60 18 149/63 99 07/23/16 00:00 Nasal Cannula 5.00 07/22/16 20:00 97.9 66 20 136/64 98 07/22/16 20:00 Nasal Cannula 5.00 07/22/16 16:00 97.7 70 20 139/61 92 07/22/16 15:23 54 07/22/16 12:00 97.0 66 20 136/77 98 07/22/16 11:21 97 Nasal Cannula 2.00 I/O 07/22/16 07/22/16 07/22/16 07/23/16 07/23/16 07/23/16 07:00 15:00 23:00 07:00 15:00 23:00 Intake Total 120 ml 2023 ml 240 ml 0 ml Output Total 600 ml 1750 ml 200 ml 625 ml Balance -480 ml 273 ml 40 ml -625 ml Intake Oral 120 ml 240 ml 240 ml 0 ml IV Total 1783 ml Output Urine Total 600 ml 1750 ml 200 ml 625 ml # Bowel Movements 0 1 Result Diagram: 07/23/16 0535 07/23/16 0535 Imaging Last 48 hours Impressions Hip Aspiration/Injection 07/15/16 0000 Signed Impressions: Service Date/Time: July 15:55 - CONCLUSION: Uncomplicated aspiration as above. Aniceto Vasquez MD X-ray pelvis 07/12- post operative changes, no fx or dislocation. There is periacetabular osteopenia similar in appearance to immediate post op view Last 72 hours Impressions Chest X-Ray 07/12/161957 Signed Impressions: Service Date/Time: Tuesday, July 12, 2016 20:23 - CONCLUSION: 1. Postoperative CABG. Remote granulomatous disease. No effusion or pneumothorax. Tony Galloway MD Objective Remarks LLE: Pt awake, alert, pleasantly confused. He holds his hip flexed at 110 deg. Pain with any attempt at ROM. No erythema or induration. Area of blistering around proximal aspect of incision. No calf swelling or palpable tenderness. Neuro unreliable. No brace on at this time. Assessment & Plan Problem List: (1) Fracture of left hip requiring operative repair (2) PVD (peripheral vascular disease) (3) Non healing left heel wound (4) Type 2 diabetes mellitus (5) Renal insufficiency (6) Diabetic foot infection (7) Sepsis associated hypotension (8) Hx of coronary artery disease (9) HTN (hypertension) Assessment and Plan Ortho status stable. Continue with aggressive rehabilitation and therapy, focused on range of motion for left hip flexion contracture. body shop technician order was placed, place knee immobilizer or hip abductor pillow, whichever patient will tolerate. Pt is to wear when laying in bed to keep left leg stay in extension. Continue daily dressing changes over surgical site. Discharge planning. Mary Ellen Pike Jul 23, 2016 09:52
[2016-07-23] MEDS: MORPHINE SULFATE 4 MG/ML INJ IV PRN (11:50)
--- NOTE | 2016-07-23 14:22 | PD.CARD.PN ---
Subjective Subjective Remarks No complaints, denies CP/SOB Objective Medications Current Medications Medications (Trade) Dose Ordered Sig/[place] Route Start Time Stop Time Status Last Admin (NS Flush) 2 ml UNSCH PRN IV FLUSH 07/13/16 00:30 (NS Flush) 2 ml BID IV FLUSH 07/13/16 09:00 07/21/16 08:22 (Tylenol) 650 mg Q6H PRN PO 07/13/16 00:30 07/22/16 23:25 (Morphine Inj) 2 mg Q2H PRN IV 07/13/16 00:30 07/23/16 11:50 (Colace) 100 mg BID PO 07/13/16 09:00 07/23/16 08:57 (Ambien) 5 mg HS PRN PO 07/13/16 00:30 Miscellaneous Information 1 Q361D XX 07/13/16 00:30 (Chlorhexidine 2% Cloth) Taper DAILY@04 TOP 07/13/16 04:00 07/09/17 03:59 07/19/16 04:44 (Chlorhexidine 2% Cloth) 3 pack UNSCH PRN TOP 07/13/16 00:30 (Lipitor) 20 mg DAILY PO 07/13/16 09:00 07/23/16 08:57 ([place] 5-325 Mg) 1 tab Q4H PRN PO 07/13/16 04:45 07/21/16 04:31 (Mycostatin Liq) 5 ml QID SWISH-SWAL 07/13/16 09:00 07/23/16 11:52 Tamsulosin HCl 0.4 mg 0.4 mg HS PO 07/13/16 21:00 Hold 07/17/16 21:04 (Vancomycin Consult Pharmacy) 0 ml @ 0 mls/hr UNSCH OTHER 07/13/16 05:15 (D50w (Vial) Inj) 25 ml UNSCH PRN IV PUSH 07/13/16 05:15 (Glucagon Inj) 1 mg UNSCH PRN OTHER 07/13/16 05:15 Famotidine 20 mg 20 mg Q12HR PO 07/16/16 21:00 07/23/16 08:57 (Vancomycin Inj/ NS 250 ml Inj) 262.5 ml @ 250 mls/hr Q24H IV 07/17/16 09:00 07/23/16 08:51 Diltiazem HCl 30 mg 30 mg Q4HR PRN PO 07/17/16 09:00 (Flagyl 500 Mg Inj) 100 ml @ 100 mls/hr Q8H IV 07/18/16 10:00 07/23/16 08:57 (Lopressor) 25 mg Q12HR PO 07/18/16 21:00 07/23/16 08:57 (VANCOMYCIN for oral use only) 125 mg QID PO 07/18/16 18:00 07/23/16 11:52 (Cardizem Cd) 120 mg DAILY PO 07/19/16 11:00 07/23/16 08:57 Miscellaneous Information SPECIFIC LAB TO BE DRAWN:VANCOMYCIN TROUGH DATE TO... ONCE ONCE XX 07/25/16 08:45 07/25/16 08:46 (NS + KCl 20 Meq Inj) 1,000 ml @ 42 mls/hr [id number] IV 07/23/16 07:45 07/23/16 08:49 Vital Signs / I&O Vital Signs Date Time Temp Pulse Resp B/P Pulse Ox O2 Delivery O2 Flow Rate FiO2 07/23/16 12:38 98 Nasal Cannula 2.00 07/23/16 12:00 97.4 79 20 124/61 97 07/23/16 10:44 59 07/23/16 08:45 Nasal Cannula 5.00 21 07/23/16 08:00 97.7 68 20 147/65 98 07/23/16 04:00 97.9 74 18 128/61 98 07/23/16 00:27 97.3 60 18 149/63 99 07/23/16 00:00 Nasal Cannula 5.00 07/22/16 20:00 97.9 66 20 136/64 98 07/22/16 20:00 Nasal Cannula 5.00 07/22/16 16:00 97.7 70 20 139/61 92 07/22/16 15:23 54 I/O 07/22/16 07/22/16 07/22/16 07/23/16 07/23/16 07/23/16 07:00 15:00 23:00 07:00 15:00 23:00 Intake Total 120 ml 2023 ml 240 ml 0 ml 2190 ml Output Total 600 ml 1750 ml 200 ml 625 ml Balance -480 ml 273 ml 40 ml -625 ml 2190 ml Intake Oral 120 ml 240 ml 240 ml 0 ml IV Total 1783 ml 2190 ml Output Urine Total 600 ml 1750 ml 200 ml 625 ml # Bowel Movements 0 1 Physical Exam GENERAL: NAD SKIN: Warm and dry. HEAD: Atraumatic. Normocephalic. EYES: Pupils equal and round. No scleral icterus. No injection or drainage. ENT: No nasal bleeding or discharge. Mucous membranes pink and moist. NECK: Trachea midline. No JVD. CARDIOVASCULAR: Regular rate and rhythm. RESPIRATORY: No accessory muscle use. Clear to auscultation. Breath sounds equal bilaterally. GASTROINTESTINAL: Abdomen soft, non-tender, nondistended. Hepatic and splenic margins not palpable. MUSCULOSKELETAL: Extremities without clubbing, cyanosis, or edema. LLE contracted NEUROLOGICAL: Awake and alert. No obvious cranial nerve deficits. Motor grossly within normal limits. Five out of 5 muscle strength in the arms and legs. Normal speech. PSYCHIATRIC: Appropriate mood and affect; insight and judgment normal. Laboratory Laboratory Tests Test 07/22/16 07/23/16 14:48 05:35 Total Creatine Kinase 121 U/L Creatine Kinase MB 2.4 NG/ML Troponin I 0.03 NG/ML White Blood Count 15.4 TH/MM3 Red Blood Count 2.77 MIL/MM3 Hemoglobin 8.0 GM/DL Hematocrit 24.5 % Mean Corpuscular Volume 88.4 FL Mean Corpuscular Hemoglobin 28.9 PG Mean Corpuscular Hemoglobin 32.7 % Concent Red Cell Distribution Width 18.5 % Platelet Count 365 TH/MM3 Mean Platelet Volume 8.8 FL Neutrophils (%) (Auto) 85.4 % Lymphocytes (%) (Auto) 8.6 % Monocytes (%) (Auto) 5.4 % Eosinophils (%) (Auto) 0.5 % Basophils (%) (Auto) 0.1 % Neutrophils # (Auto) 13.2 TH/MM3 Lymphocytes # (Auto) 1.3 TH/MM3 Monocytes # (Auto) 0.8 TH/MM3 Eosinophils # (Auto) 0.1 TH/MM3 Basophils # (Auto) 0.0 TH/MM3 CBC Comment DIFF FINAL Differential Comment Sodium Level 144 MEQ/L Potassium Level 3.0 MEQ/L Chloride Level 112 MEQ/L Carbon Dioxide Level 21.3 MEQ/L Anion Gap 11 MEQ/L Blood Urea Nitrogen 4 MG/DL Creatinine 0.81 MG/DL Estimat Glomerular Filtration 92 ML/MIN Rate Random Glucose 114 MG/DL Calcium Level 7.4 MG/DL Protein Corrected Calcium 8.5 MG/DL Magnesium Level 1.5 MG/DL Total Protein 5.2 GM/DL Assessment and Plan Problem List: (1) C. 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 concern for Hbg in the 7- 8 range 2) Currently NSR 3) Per Dr. Guadalupe, not a revascularization candidate due to comorbidities, which I agree with... continue medical management 4) Will see PRN, call with questions Williams Conrad DO Jul 23, 2016 14:22
--- NOTE | 2016-07-23 15:52 | HHI.IDPN ---
Note Infectious Disease Note Patient is confused. No complaints. No distress. Denies abdominal pain. Afebrile. No loose stools today. ANTIBIOTICS: Vancomycin IV. Flagyl IV Vanco PO. OBJECTIVE: Vital Signs Date Time Temp Pulse Resp B/P Pulse Ox O2 Delivery O2 Flow Rate FiO2 07/23/16 12:38 98 Nasal Cannula 2.00 07/23/16 12:00 97.4 79 20 124/61 97 07/23/16 10:44 59 07/23/16 08:45 Nasal Cannula 5.00 21 07/23/16 08:00 97.7 68 20 147/65 98 07/23/16 04:00 97.9 74 18 128/61 98 07/23/16 00:27 97.3 60 18 149/63 99 07/23/16 00:00 Nasal Cannula 5.00 07/22/16 20:00 97.9 66 20 136/64 98 07/22/16 20:00 Nasal Cannula 5.00 07/22/16 16:00 97.7 70 20 139/61 92 07/22/16 07/22/16 07/23/16 15:00 23:00 07:00 Intake Total 2023 ml 240 ml 0 ml Output Total 1750 ml 200 ml 625 ml Balance 273 ml 40 ml -625 ml Intake Oral 240 ml 240 ml 0 ml IV Total 1783 ml Output Urine Total 1750 ml 200 ml 625 ml # Bowel Movements 0 1 Laboratory Tests Test 07/22/16 07/23/16 05:19 05:35 White Blood Count 16.8 TH/MM3 15.4 TH/MM3 Red Blood Count 2.83 MIL/MM3 2.77 MIL/MM3 Hemoglobin 8.3 GM/DL 8.0 GM/DL Hematocrit 25.2 % 24.5 % Mean Corpuscular Volume 88.9 FL 88.4 FL Mean Corpuscular Hemoglobin 29.1 PG 28.9 PG Mean Corpuscular Hemoglobin 32.8 % 32.7 % Concent Red Cell Distribution Width 18.4 % 18.5 % Platelet Count 344 TH/MM3 365 TH/MM3 Mean Platelet Volume 8.5 FL 8.8 FL Neutrophils (%) (Auto) 86.2 % 85.4 % Lymphocytes (%) (Auto) 7.4 % 8.6 % Monocytes (%) (Auto) 5.8 % 5.4 % Eosinophils (%) (Auto) 0.3 % 0.5 % Basophils (%) (Auto) 0.3 % 0.1 % Neutrophils # (Auto) 14.5 TH/MM3 13.2 TH/MM3 Lymphocytes # (Auto) 1.2 TH/MM3 1.3 TH/MM3 Monocytes # (Auto) 1.0 TH/MM3 0.8 TH/MM3 Eosinophils # (Auto) 0.0 TH/MM3 0.1 TH/MM3 Basophils # (Auto) 0.0 TH/MM3 0.0 TH/MM3 CBC Comment DIFF FINAL DIFF FINAL Differential Comment Laboratory Tests Test 07/22/16 07/22/16 07/23/16 05:19 14:48 05:35 Sodium Level 146 MEQ/L 144 MEQ/L Potassium Level 3.1 MEQ/L 3.0 MEQ/L Chloride Level 114 MEQ/L 112 MEQ/L Carbon Dioxide Level 20.6 MEQ/L 21.3 MEQ/L Anion Gap 11 MEQ/L 11 MEQ/L Blood Urea Nitrogen 5 MG/DL 4 MG/DL Creatinine 0.84 MG/DL 0.81 MG/DL Estimat Glomerular Filtration 89 ML/MIN 92 ML/MIN Rate Random Glucose 119 MG/DL 114 MG/DL Calcium Level 7.5 MG/DL 7.4 MG/DL Magnesium Level 1.5 MG/DL 1.5 MG/DL Total Creatine Kinase 121 U/L Creatine Kinase MB 2.4 NG/ML Troponin I 0.03 NG/ML Protein Corrected Calcium 8.5 MG/DL Total Protein 5.2 GM/DL GENERAL: No acute distress. HEENT: PERRL. EOMI, No icterus. NECK: Supple, no adenopathy. LUNGS: Breath sounds clear. CARDIAC: Regular rate and rhythm. ABDOMEN: (+) BS, Soft, non tender. MUSCULOSKELETAL: R. hip wound without drainage. Incision clean. : Scrotal edema. EXTREMITIES: No CCE. SKIN: No rash. ASSESSMENT: R. hip wound infection - MRSA. Post R. hip arthroplasty. C. diff colitis. Leukocytosis - Improving. PLAN. Continue Vancomycin IV. Continue Flagyl IV for c. diff. Continue Vancomycin PO for c. diff. hypervirulent strain. Monitor clinical response. Pablo Draper MD Jul 23, 2016 15:52
--- NOTE | 2016-07-23 16:26 | HHI.PR ---
Subjective Remarks Follow-up C. difficile, sepsis. The patient has no complaints at this time. Denies nausea, vomiting, diarrhea. Denies chest pain or dyspnea. Objective Vitals Vital Signs Date Time Temp Pulse Resp B/P Pulse Ox O2 Delivery O2 Flow Rate FiO2 07/23/16 12:38 98 Nasal Cannula 2.00 07/23/16 12:00 97.4 79 20 124/61 97 07/23/16 10:44 59 07/23/16 08:45 Nasal Cannula 5.00 21 07/23/16 08:00 97.7 68 20 147/65 98 07/23/16 04:00 97.9 74 18 128/61 98 07/23/16 00:27 97.3 60 18 149/63 99 07/23/16 00:00 Nasal Cannula 5.00 07/22/16 20:00 97.9 66 20 136/64 98 07/22/16 20:00 Nasal Cannula 5.00 I/O 07/22/16 07/22/16 07/22/16 07/23/16 07/23/16 07/23/16 07:00 15:00 23:00 07:00 15:00 23:00 Intake Total 120 ml 2023 ml 240 ml 0 ml 2190 ml Output Total 600 ml 1750 ml 200 ml 625 ml Balance -480 ml 273 ml 40 ml -625 ml 2190 ml Intake Oral 120 ml 240 ml 240 ml 0 ml IV Total 1783 ml 2190 ml Output Urine Total 600 ml 1750 ml 200 ml 625 ml # Bowel Movements 0 1 Result Diagram: 07/23/16 0535 07/23/16 0535 Imaging Last Impressions Hip Aspiration/Injection 07/15/16 0000 Signed Impressions: Service Date/Time: July 15:55 - CONCLUSION: Uncomplicated aspiration as above. Aniceto Vasquez MD Chest X-Ray 07/12/161957 Signed Impressions: Service Date/Time: Tuesday, July 12, 2016 20:23 - CONCLUSION: 1. Postoperative CABG. Remote granulomatous disease. No effusion or pneumothorax. Tony Galloway MD Pelvis X-Ray 07/12/16 0000 Signed Impressions: Service Date/Time: Tuesday, July 12, 2016 20:17 - CONCLUSION: 1. Postoperative left total hip replacement. Osteopenia. No acute bony abnormalities. Tony Galloway MD Objective Remarks General: Thin elderly male in no acute distress. Heart: Regular rate and rhythm. No murmur. No chest wall tenderness. Lungs: Clear to auscultation bilaterally. No wheezes, rales, or rhonchi. Breathing is nonlabored. Abdomen: Soft, nontender, nondistended. Extremities: No lower extremity edema. Psych: Confused. Procedures 07/15/16 left hip aspiration Urinary Catheter: Yes Assessment to: Continue Arrieta insert reason: Prolonged Immobilization Vascular Central Line Catheter: No A/P Problem List: (1) Atrial fibrillation with RVR ICD Code: I48.91 Status: Acute (2) Sepsis ICD Code: A41.9 Status: Acute (3) Thrombus of left atrial appendage without antecedent myocardial infarction ICD Code: I51.3 Status: Acute (4) HTN (hypertension) ICD Code: I10 Status: Chronic (5) Type 2 diabetes mellitus ICD Code: E11.9 Status: Chronic (6) Hypocalcemia ICD Code: E83.51 Status: Resolved (7) Hypomagnesemia ICD Code: E83.42 Status: Acute (8) Hypokalemia ICD Code: E87.6 Status: Resolved (9) Chronic systolic CHF (congestive heart failure) ICD Code: I50.22 Status: Chronic (10) Fracture of left hip requiring operative repair ICD Code: S72.002A Status: Acute (11) Hx of coronary artery disease ICD Code: Z86.79 Status: Chronic (12) C. difficile colitis ICD Code: A04.7 Status: Acute Assessment and Plan 1. Atrial fibrillation with RVR: Continue oral Cardizem, metoprolol. Digoxin on hold. Plavix on hold. Heparin discontinued by cardiology. 2. Left atrial thrombus: Appreciate cardiology recommendations. Likely secondary to CT in the past. Heparin discontinued by cardiology. 3. Sepsis secondary to C. difficile: Diarrhea has decreased. Leukocytosis is improving. Continue Flagyl, oral vancomycin for highly virulent strain of C. difficile. 4. Chronic systolic congestive heart failure with mild exacerbation: Exacerbation has resolved. Lasix on hold. Ejection fraction 40% on echocardiogram. Continue beta anthony. 5. Hypertension: Norvasc on hold. Continue metoprolol. 6. Left hip and right lateral heel cellulitis: Appreciate orthopedic surgery recommendations. Wound culture showed MRSA. Not felt to be septic joint per orthopedic surgery. 7. Anemia: Stable. 8. Left hip fracture status post ORIF in May 2016. Appreciate orthopedic surgery recommendations. Continue physical therapy. 9. Poor oral intake, mild hypoglycemia: Glucose improved. Continue IV fluids. 10. Peripheral vascular disease: Status post lower extremity bypass. 11. Dementia: Continue supportive care. 12. Diabetes mellitus: Monitor Accu-Cheks and cover with sliding scale insulin. 13. Hypomagnesemia: Improved. 14. Hypokalemia: Still low. Supplement potassium and monitor. 15. Hypocalcemia: Resolved. 16. GI prophylaxis: Pepcid. 17. DVT prophylaxis: Heparin. 18. Chest pain: Cardiac enzymes are negative. Problem Qualifiers (1) Type 2 diabetes mellitus: Qualified Code: E11.51 - Type 2 diabetes mellitus with diabetic peripheral angiopathy without gangrene, without long-term current use of insulin Karl Stone MD Jul 23, 2016 16:26
[2016-07-23] MEDS ORDERED: MAGNESIUM SULFATE 1 GM PREMIX 100 ML IV ONE (18:00)
--- NOTE | 2016-07-23 20:31 | EKG ---
Date Performed: 07/22/2016 Time Performed: 15:28:38 PTAGE: 76 years EKG: Sinus rhythm WITH FIRST DEGREE AV BLOCK LOW QRS VOLTAGE IN EXTREMITY LEADS PROBABLE INFERIOR MYOCARDIAL INFARCTIO N , PROBABLY OLD When compared to previous tracing, rhythm has changed from Atrial fibrillation to si nus rhythm. ABNORMAL ECG PREVIOUS TRACING : 07/13/2016 01.12 DOCTOR: Luke Cifuentes Interpretating Date/Time 07/23/2016 20:29:25
[2016-07-24] VITALS (7 sets, daily range): BP systolic 130–150; BP diastolic 56–84; PULSE 58–74; RESP 12–18; TEMP 97–98.3; O2SAT 94–99
[2016-07-24] MEDS: metroNIDAZOLE 500 MG INJ 100 ML IV SCH ×3 (01:42→18:27)
[2016-07-24] MEDS: CHLORHEXIDINE GLUCONATE 2 % 1 PACK (2 CLOTHS) TOP SCH (04:00)
[2016-07-24] MEDS: INSULIN ASPART SUPPLEMENTAL SCALE SQ SCH ×4 (06:11→21:00)
[2016-07-24] MEDS: NS + KCL 20 MEQ INJ 1,000 ML IV SCH ×2 (07:34→23:07)
[2016-07-24 08:08] LABS: BASOPHIL % 0.1 % (0.0-2.0); EOSINOPHIL # 0.1 TH/MM3 (0-0.4); EOSINOPHIL % 0.4 % (0.0-4.0); HEMATOCRIT 25.5 % (39.0-51.0); HEMO FLAGS DIFF FINAL; LYMPH % 9.3 % (9.0-44.0); LYMPHOCYTE # 1.3 TH/MM3 (1.0-4.8); MEAN CELL VOLUME 88.3 FL (80.0-100.0); MEAN CORPUSCULAR HGB CONC 32.9 % (32.0-36.0); NEUT % 85.2 % (16.0-70.0); PLATELET COUNT 380 TH/MM3 (150-450); RED BLOOD COUNT 2.89 MIL/MM3 (4.50-5.90); RED CELL DISTRIBUTION WIDTH 18.5 % (11.6-17.2); WHITE BLOOD COUNT 14.1 TH/MM3 (4.0-11.0)
[2016-07-24 08:24] LABS: BICARBONATE 21.4 MEQ/L (21.0-32.0); MAGNESIUM 1.6 MG/DL (1.5-2.5); POTASSIUM 3.4 MEQ/L (3.5-5.1)
[2016-07-24] MEDS: DOCUSATE SODIUM 100 MG CAP PO SCH ×2 (09:47→21:34)
[2016-07-24] MEDS: METOPROLOL TARTRATE 25 MG TAB PO SCH ×2 (09:47→21:33)
[2016-07-24] MEDS: VANCOMYCIN 500 MG VIAL (FOR ORAL USE ONLY) PO SCH ×4 (09:47→21:33)
[2016-07-24] MEDS: FAMOTIDINE 20 MG TAB PO SCH ×2 (09:47→21:33)
[2016-07-24] MEDS: ATORVASTATIN 20 MG TAB PO SCH (09:48)
[2016-07-24] MEDS: NYSTATIN SUSP 500,000 U/5 ML CUP SWISH-SWAL SCH ×4 (09:48→21:33)
[2016-07-24] MEDS: DILTIAZEM-CD 120 MG CAP ER PO SCH (09:48)
[2016-07-24] MEDS: SODIUM CHLORIDE 0.9% FLUSH 5 ML FLUSH IV FLUSH SCH ×2 (09:48→21:00)
[2016-07-24] MEDS: VANCOMYCIN INJ 1,250 MG in SODIUM CHLOR 0.9% 250 ML INJ 250 ML IV SCH (10:29)
--- NOTE | 2016-07-24 13:12 | HHI.PR ---
Subjective Remarks Follow up hypokalemia, c. difficile, sepsis. The patient reports no complaints at this time. Denies chest pain, dyspnea, nausea, vomiting, diarrhea. Objective Vitals Vital Signs Date Time Temp Pulse Resp B/P Pulse Ox O2 Delivery O2 Flow Rate FiO2 07/24/16 08:52 96 Nasal Cannula 2.00 07/24/16 08:00 97.9 58 18 130/65 99 07/24/16 04:00 97.4 65 18 136/61 99 07/24/16 00:32 97.6 69 18 150/84 98 07/23/16 22:11 21 07/23/16 21:00 Nasal Cannula 5.00 07/23/16 20:00 69 07/23/16 20:00 97.4 70 18 145/63 97 07/23/16 16:00 97.9 60 18 136/63 95 I/O 07/23/16 07/23/16 07/23/16 07/24/16 07/24/16 07/24/16 07:00 15:00 23:00 07:00 15:00 23:00 Intake Total 0 ml 2310 ml 563 ml 676 ml Output Total 625 ml 900 ml 225 ml 725 ml Balance -625 ml 1410 ml 338 ml -49 ml Intake Oral 0 ml 120 ml 120 ml 240 ml IV Total 2190 ml 443 ml 436 ml Output Urine Total 625 ml 900 ml 225 ml 725 ml # Bowel Movements 0 Result Diagram: 07/24/16 0715 07/24/16 0715 Imaging Last Impressions Hip Aspiration/Injection 07/15/16 0000 Signed Impressions: Service Date/Time: July 15:55 - CONCLUSION: Uncomplicated aspiration as above. Aniceto Vasquez MD Chest X-Ray 07/12/161957 Signed Impressions: Service Date/Time: Tuesday, July 12, 2016 20:23 - CONCLUSION: 1. Postoperative CABG. Remote granulomatous disease. No effusion or pneumothorax. Tony Galloway MD Pelvis X-Ray 07/12/16 0000 Signed Impressions: Service Date/Time: Tuesday, July 12, 2016 20:17 - CONCLUSION: 1. Postoperative left total hip replacement. Osteopenia. No acute bony abnormalities. Tony Galloway MD Objective Remarks General: Thin elderly male in no acute distress. Heart: Regular rate and rhythm. No murmur. No chest wall tenderness. Lungs: Clear to auscultation bilaterally. No wheezes, rales, or rhonchi. Breathing is nonlabored. Abdomen: Soft, nontender, nondistended. Extremities: No lower extremity edema. Wounds are bandaged on extremities. Psych: Confused. Procedures 07/15/16 left hip aspiration Urinary Catheter: Yes Assessment to: Continue Arrieta insert reason: Prolonged Immobilization Vascular Central Line Catheter: No A/P Problem List: (1) Atrial fibrillation with RVR ICD Code: I48.91 Status: Acute (2) Sepsis ICD Code: A41.9 Status: Acute (3) Thrombus of left atrial appendage without antecedent myocardial infarction ICD Code: I51.3 Status: Acute (4) HTN (hypertension) ICD Code: I10 Status: Chronic (5) Type 2 diabetes mellitus ICD Code: E11.9 Status: Chronic (6) Hypocalcemia ICD Code: E83.51 Status: Resolved (7) Hypomagnesemia ICD Code: E83.42 Status: Acute (8) Hypokalemia ICD Code: E87.6 Status: Resolved (9) Chronic systolic CHF (congestive heart failure) ICD Code: I50.22 Status: Chronic (10) Fracture of left hip requiring operative repair ICD Code: S72.002A Status: Acute (11) Hx of coronary artery disease ICD Code: Z86.79 Status: Chronic (12) C. difficile colitis ICD Code: A04.7 Status: Acute Assessment and Plan 1. Atrial fibrillation with RVR: Continue oral Cardizem, metoprolol. Digoxin on hold. Plavix on hold. Heparin discontinued by cardiology. 2. Left atrial thrombus: Appreciate cardiology recommendations. Likely secondary to [place] in the past. Heparin discontinued by cardiology. 3. Sepsis secondary to C. difficile: Diarrhea has decreased. Leukocytosis continues to improve. Continue Flagyl, oral vancomycin for highly virulent strain of C. difficile. 4. Chronic systolic congestive heart failure with mild exacerbation: Exacerbation has resolved. Lasix on hold. Ejection fraction 40% on echocardiogram. Continue beta anthony. 5. Hypertension: Norvasc on hold. Continue metoprolol. 6. Left hip and right lateral heel cellulitis: Appreciate orthopedic surgery recommendations. Wound culture showed MRSA. Not felt to be septic joint per orthopedic surgery. 7. Anemia: Stable. 8. Left hip fracture status post ORIF in May 2016. Appreciate orthopedic surgery recommendations. Continue physical therapy. 9. Poor oral intake, mild hypoglycemia: Glucose improved. Continue IV fluids. 10. Peripheral vascular disease: Status post lower extremity bypass. 11. Dementia: Continue supportive care. 12. Diabetes mellitus: Monitor Accu-Cheks and cover with sliding scale insulin. 13. Hypomagnesemia: Improved. 14. Hypokalemia: Improving. Supplement potassium and monitor. 15. Hypocalcemia: Resolved. 16. GI prophylaxis: Pepcid. 17. DVT prophylaxis: Heparin. 18. Chest pain: Resolved. Problem Qualifiers (1) Type 2 diabetes mellitus: Qualified Code: E11.51 - Type 2 diabetes mellitus with diabetic peripheral angiopathy without gangrene, without long-term current use of insulin Karl Stone MD Jul 24, 2016 13:12
[2016-07-24] MEDS ORDERED: POTASSIUM CL 40 MEQ/30 ML LIQ UDC PO ONE (13:15)
[2016-07-25] VITALS (7 sets, daily range): BP systolic 130–164; BP diastolic 61–69; PULSE 58–79; RESP 18–20; TEMP 97.6–98.6; O2SAT 96–99
[2016-07-25] MEDS: metroNIDAZOLE 500 MG INJ 100 ML IV SCH ×3 (02:12→17:22)
[2016-07-25] MEDS: CHLORHEXIDINE GLUCONATE 2 % 1 PACK (2 CLOTHS) TOP SCH (04:00)
[2016-07-25] MEDS: INSULIN ASPART SUPPLEMENTAL SCALE SQ SCH ×4 (05:51→21:00)
[2016-07-25 07:47] LABS: AUTOMATED NEUTROPHIL # 10.9 TH/MM3 (1.8-7.7); BASOPHIL % 0.3 % (0.0-2.0); EOSINOPHIL # 0.1 TH/MM3 (0-0.4); EOSINOPHIL % 0.6 % (0.0-4.0); HEMATOCRIT 24.5 % (39.0-51.0); HEMO FLAGS DIFF FINAL; LYMPH % 12.2 % (9.0-44.0); LYMPHOCYTE # 1.6 TH/MM3 (1.0-4.8); MEAN CORPUSCULAR HEMOGLOBIN 28.9 PG (27.0-34.0); MEAN CORPUSCULAR HGB CONC 32.5 % (32.0-36.0); MONO % 5.4 % (0.0-8.0); NEUT % 81.5 % (16.0-70.0); PLATELET COUNT 353 TH/MM3 (150-450); RED BLOOD COUNT 2.75 MIL/MM3 (4.50-5.90); RED CELL DISTRIBUTION WIDTH 18.9 % (11.6-17.2); WHITE BLOOD COUNT 13.3 TH/MM3 (4.0-11.0)
[2016-07-25 08:18] LABS: BICARBONATE 24.4 MEQ/L (21.0-32.0); POTASSIUM 3.3 MEQ/L (3.5-5.1)
[2016-07-25 08:36] LABS: CALCIUM-PROTEIN CORRECTED 8.2 MG/DL (8.5-10.1)
[2016-07-25] MEDS ORDERED: PHARMACY ORDERED LAB XX ONE (08:45)
--- NOTE | 2016-07-25 09:58 | HHI.PR ---
Subjective Remarks Follow up hypokalemia, c. difficile. The patient has no complaints at this time. Denies chest pain, dyspnea, nausea, vomiting, diarrhea. Objective Vitals Vital Signs Date Time Temp Pulse Resp B/P Pulse Ox O2 Delivery O2 Flow Rate FiO2 07/25/16 04:00 98.6 65 18 164/69 99 07/25/16 00:00 Nasal Cannula 4.00 07/25/16 00:00 97.6 58 18 140/61 99 07/24/16 21:30 Nasal Cannula 4.00 07/24/16 20:00 98.3 70 18 132/61 94 07/24/16 20:00 74 07/24/16 16:00 97.0 60 18 138/56 96 07/24/16 12:00 98.0 68 18 139/63 98 I/O 07/24/16 07/24/16 07/24/16 07/25/16 07/25/16 07/25/16 07:00 15:00 23:00 07:00 15:00 23:00 Intake Total 676 ml 906 ml 347 ml Output Total 725 ml 600 ml 900 ml Balance -49 ml 306 ml -553 ml Intake Oral 240 ml 0 ml IV Total 436 ml 906 ml 347 ml Output Urine Total 725 ml 600 ml 900 ml # Bowel Movements 1 Result Diagram: 07/25/1670407/25/16704 Imaging Last Impressions Hip Aspiration/Injection 07/15/16 0000 Signed Impressions: Service Date/Time: July 15:55 - CONCLUSION: Uncomplicated aspiration as above. Aniceto Vasquez MD Chest X-Ray 07/12/161957 Signed Impressions: Service Date/Time: Tuesday, July 12, 2016 20:23 - CONCLUSION: 1. Postoperative CABG. Remote granulomatous disease. No effusion or pneumothorax. Tony Galloway MD Pelvis X-Ray 07/12/16 0000 Signed Impressions: Service Date/Time: Tuesday, July 12, 2016 20:17 - CONCLUSION: 1. Postoperative left total hip replacement. Osteopenia. No acute bony abnormalities. Tony Galloway MD Objective Remarks General: Thin elderly male in no acute distress. Heart: Regular rate and rhythm. No murmur. No chest wall tenderness. Lungs: Clear to auscultation bilaterally. No wheezes, rales, or rhonchi. Breathing is nonlabored. Abdomen: Soft, nontender, nondistended. Extremities: No lower extremity edema. Wounds are bandaged on extremities. Psych: Confused. Procedures 07/15/16 left hip aspiration Urinary Catheter: Yes Assessment to: Continue Arrieta insert reason: Prolonged Immobilization Vascular Central Line Catheter: No A/P Problem List: (1) Atrial fibrillation with RVR ICD Code: I48.91 Status: Acute (2) Sepsis ICD Code: A41.9 Status: Acute (3) Thrombus of left atrial appendage without antecedent myocardial infarction ICD Code: I51.3 Status: Acute (4) HTN (hypertension) ICD Code: I10 Status: Chronic (5) Type 2 diabetes mellitus ICD Code: E11.9 Status: Chronic (6) Hypocalcemia ICD Code: E83.51 Status: Resolved (7) Hypomagnesemia ICD Code: E83.42 Status: Acute (8) Hypokalemia ICD Code: E87.6 Status: Resolved (9) Chronic systolic CHF (congestive heart failure) ICD Code: I50.22 Status: Chronic (10) Fracture of left hip requiring operative repair ICD Code: S72.002A Status: Acute (11) Hx of coronary artery disease ICD Code: Z86.79 Status: Chronic (12) C. difficile colitis ICD Code: A04.7 Status: Acute Assessment and Plan 1. Atrial fibrillation with RVR: Continue oral Cardizem, metoprolol. Digoxin on hold. Plavix on hold. Heparin discontinued by cardiology. 2. Left atrial thrombus: Appreciate cardiology recommendations. Likely secondary to [place] in the past. Heparin discontinued by cardiology. 3. Sepsis secondary to C. difficile: Diarrhea has decreased. Leukocytosis continues to improve. Continue Flagyl, oral vancomycin for highly virulent strain of C. difficile. 4. Chronic systolic congestive heart failure with mild exacerbation: Exacerbation has resolved. Lasix on hold. Ejection fraction 40% on echocardiogram. Continue beta anthony. 5. Hypertension: Norvasc on hold. Continue metoprolol. 6. Left hip and right lateral heel cellulitis: Appreciate orthopedic surgery recommendations. Wound culture showed MRSA. Not felt to be septic joint per orthopedic surgery. 7. Anemia: Stable. 8. Left hip fracture status post ORIF in May 2016. Appreciate orthopedic surgery recommendations. Continue physical therapy. 9. Poor oral intake: Continue pureed diet. IV fluids. 10. Peripheral vascular disease: Status post lower extremity bypass. 11. Dementia: Continue supportive care. 12. Diabetes mellitus: Monitor Accu-Cheks and cover with sliding scale insulin. 13. Hypomagnesemia: Improved. 14. Hypokalemia: Continue to supplement potassium. Recheck labs in the morning. 15. Hypocalcemia: Supplement calcium. 16. GI prophylaxis: Pepcid. 17. DVT prophylaxis: Heparin. 18. Chest pain: Resolved. Problem Qualifiers (1) Type 2 diabetes mellitus: Qualified Code: E11.51 - Type 2 diabetes mellitus with diabetic peripheral angiopathy without gangrene, without long-term current use of insulin Karl Stone MD Jul 25, 2016 09:58
[2016-07-25] MEDS ORDERED: POTASSIUM CHLOR 20 MEQ PREMIX 100 ML IV ONE (10:00)
[2016-07-25] MEDS: POTASSIUM CHLORIDE 20 MEQ CONTROLLED RELEASE TAB PO SCH (10:00)
[2016-07-25] MEDS: SODIUM CHLORIDE 0.9% FLUSH 5 ML FLUSH IV FLUSH SCH ×2 (11:05→20:06)
[2016-07-25] MEDS: VANCOMYCIN INJ 1,250 MG in SODIUM CHLOR 0.9% 250 ML INJ 250 ML IV SCH (11:05)
[2016-07-25] MEDS: FAMOTIDINE 20 MG TAB PO SCH ×2 (11:06→20:04)
[2016-07-25] MEDS: VANCOMYCIN 500 MG VIAL (FOR ORAL USE ONLY) PO SCH ×4 (11:06→20:04)
[2016-07-25] MEDS: DILTIAZEM-CD 120 MG CAP ER PO SCH (11:06)
[2016-07-25] MEDS: NYSTATIN SUSP 500,000 U/5 ML CUP SWISH-SWAL SCH ×4 (11:06→20:04)
[2016-07-25] MEDS: ATORVASTATIN 20 MG TAB PO SCH (11:06)
[2016-07-25] MEDS: METOPROLOL TARTRATE 25 MG TAB PO SCH ×2 (11:07→20:04)
[2016-07-25] MEDS: CALCIUM/VITAMIN D 250 MG/125 U TAB PO SCH (13:12)
[2016-07-25] MEDS: ACETAMINOPHEN/HYDROcodone 325 MG/5 MG TAB PO PRN (20:04)
[2016-07-26] VITALS (7 sets, daily range): BP systolic 135–161; BP diastolic 58–66; PULSE 58–106; RESP 16–20; TEMP 97.5–98.4; O2SAT 96–99
[2016-07-26] MEDS: metroNIDAZOLE 500 MG INJ 100 ML IV SCH ×3 (01:50→18:00)
[2016-07-26] MEDS: CHLORHEXIDINE GLUCONATE 2 % 1 PACK (2 CLOTHS) TOP SCH (04:00)
[2016-07-26] MEDS: INSULIN ASPART SUPPLEMENTAL SCALE SQ SCH ×4 (05:49→21:00)
[2016-07-26] MEDS: NS + KCL 20 MEQ INJ 1,000 ML IV SCH ×2 (07:12→08:46)
[2016-07-26 07:21] LABS: BICARBONATE 25.4 MEQ/L (21.0-32.0); MAGNESIUM 1.4 MG/DL (1.5-2.5); POTASSIUM 4.1 MEQ/L (3.5-5.1)
[2016-07-26 07:41] LABS: CALCIUM-PROTEIN CORRECTED 8.2 MG/DL (8.5-10.1)
[2016-07-26 07:49] LABS: HEMATOCRIT 25.3 % (39.0-51.0); MEAN CELL VOLUME 88.6 FL (80.0-100.0); MEAN CORPUSCULAR HEMOGLOBIN 28.6 PG (27.0-34.0); MEAN CORPUSCULAR HGB CONC 32.3 % (32.0-36.0); PLATELET COUNT 314 TH/MM3 (150-450); RED BLOOD COUNT 2.85 MIL/MM3 (4.50-5.90); RED CELL DISTRIBUTION WIDTH 18.9 % (11.6-17.2); WHITE BLOOD COUNT 14.2 TH/MM3 (4.0-11.0)
[2016-07-26 07:50] LABS: HEMO FLAGS AUTO DIFF
[2016-07-26 08:25] LABS: ACANTHOCYTES 1+ (NORMAL); EOSINOPHILS 2 % (0-4); NEUTROPHIL # MANUAL DIFF 11.1 TH/MM3 (1.8-7.7); PLATELET ESTIMATE SMEAR NORMAL (NORMAL); PLATELET MORPHOLOGY NORMAL (NORMAL); POLYS (SEG NEUTROPHILS) 78 % (16-70); SCAN/DIFF FINAL DIFF MANUAL; WBC DIFF SAMPLE 100
[2016-07-26] MEDS: FAMOTIDINE 20 MG TAB PO SCH ×2 (08:48→23:57)
[2016-07-26] MEDS: CALCIUM/VITAMIN D 250 MG/125 U TAB PO SCH (08:48)
[2016-07-26] MEDS: POTASSIUM CHLORIDE 20 MEQ CONTROLLED RELEASE TAB PO SCH (08:49)
[2016-07-26] MEDS: ATORVASTATIN 20 MG TAB PO SCH (08:49)
[2016-07-26] MEDS: NYSTATIN SUSP 500,000 U/5 ML CUP SWISH-SWAL SCH ×4 (08:49→23:57)
[2016-07-26] MEDS: DILTIAZEM-CD 120 MG CAP ER PO SCH (08:49)
[2016-07-26] MEDS: VANCOMYCIN 500 MG VIAL (FOR ORAL USE ONLY) PO SCH ×4 (08:50→23:55)
[2016-07-26] MEDS: SODIUM CHLORIDE 0.9% FLUSH 5 ML FLUSH IV FLUSH SCH ×2 (08:50→21:00)
[2016-07-26] MEDS: METOPROLOL TARTRATE 25 MG TAB PO SCH ×2 (08:50→23:57)
--- NOTE | 2016-07-26 11:04 | HHI.PR ---
Subjective Remarks no complains Objective Vitals Vital Signs Date Time Temp Pulse Resp B/P Pulse Ox O2 Delivery O2 Flow Rate FiO2 07/26/16 10:46 96 Nasal Cannula 2.00 07/26/16 08:00 97.9 63 16 137/62 97 07/26/16 04:00 98.3 60 19 161/66 99 07/26/16 00:00 97.5 60 20 136/63 97 07/25/16 22:30 Nasal Cannula 4.00 07/25/16 20:00 66 07/25/16 20:00 98.2 68 20 142/65 99 07/25/16 20:00 Nasal Cannula 3.00 07/25/16 16:01 97.8 79 18 158/67 98 07/25/16 12:01 97.7 78 20 148/66 98 07/25/16 11:26 Nasal Cannula 4.00 I/O 07/25/16 07/25/16 07/25/16 07/26/16 07/26/16 07/26/16 07:00 15:00 23:00 07:00 15:00 23:00 Intake Total 347 ml 360 ml 949 ml 416 ml Output Total 900 ml 1200 ml 250 ml 150 ml Balance -553 ml -840 ml 699 ml 266 ml Intake Oral 0 ml 360 ml 60 ml IV Total 347 ml 949 ml 356 ml Output Urine Total 900 ml 1200 ml 250 ml 150 ml # Bowel Movements 1 0 1 Result Diagram: 07/26/16 0613 07/26/16 0613 Imaging Last Impressions Hip Aspiration/Injection 07/15/16 0000 Signed Impressions: Service Date/Time: July 15:55 - CONCLUSION: Uncomplicated aspiration as above. Aniceto Vasquez MD Chest X-Ray 07/12/161957 Signed Impressions: Service Date/Time: Tuesday, July 12, 2016 20:23 - CONCLUSION: 1. Postoperative CABG. Remote granulomatous disease. No effusion or pneumothorax. Tony Galloway MD Pelvis X-Ray 07/12/16 0000 Signed Impressions: Service Date/Time: Tuesday, July 12, 2016 20:17 - CONCLUSION: 1. Postoperative left total hip replacement. Osteopenia. No acute bony abnormalities. Tony Galloway MD Objective Remarks awake and alert anicteric no rales irregular rhythm abdomen soft, nontender extremities no edema Procedures 2/2/17 left hip aspiration A/P Problem List: (1) Atrial fibrillation with RVR ICD Code: I48.91 Status: Acute (2) Sepsis ICD Code: A41.9 Status: Acute (3) Thrombus of left atrial appendage without antecedent myocardial infarction ICD Code: I51.3 Status: Acute (4) HTN (hypertension) ICD Code: I10 Status: Chronic (5) Type 2 diabetes mellitus ICD Code: E11.9 Status: Chronic (6) Hypocalcemia ICD Code: E83.51 Status: Resolved (7) Hypomagnesemia ICD Code: E83.42 Status: Acute (8) Hypokalemia ICD Code: E87.6 Status: Resolved (9) Chronic systolic CHF (congestive heart failure) ICD Code: I50.22 Status: Chronic (10) Fracture of left hip requiring operative repair ICD Code: S72.002A Status: Acute (11) Hx of coronary artery disease ICD Code: Z86.79 Status: Chronic (12) C. difficile colitis ICD Code: A04.7 Status: Acute Assessment and Plan 76 years old male 1. Atrial fibrillation with RVR- rate better controlled. Continue oral Cardizem , metoprolol. Digoxin on hold. Plavix on hold. Heparin discontinued by cardiology. 2. Left atrial thrombus: Appreciate cardiology recommendations. Likely secondary to [place] in the past. Heparin discontinued by cardiology. 3. Sepsis secondary to C. difficile: Diarrhea has decreased. Leukocytosis continues to improve. Continue Flagyl, oral vancomycin for highly virulent strain of C. difficile. 4. Chronic systolic congestive heart failure with mild exacerbation: Exacerbation has resolved. Lasix on hold. Ejection fraction 40% on echocardiogram. Continue beta anthony. 5. Hypertension: Norvasc on hold. Continue metoprolol. 6. Left hip and right lateral heel cellulitis: Appreciate orthopedic surgery recommendations. Wound culture showed MRSA. Not felt to be septic joint per orthopedic surgery. 7. Anemia: Stable. 8. Left hip fracture status post ORIF in May 2016. Appreciate orthopedic surgery recommendations. Continue physical therapy. 9. Poor oral intake: Continue pureed diet. IV fluids. 10. Peripheral vascular disease: Status post lower extremity bypass. 11. Dementia: Continue supportive care. 12. Diabetes mellitus: Monitor Accu-Cheks and cover with sliding scale insulin. 13. Hypomagnesemia: Improved. 14. Hypokalemia: Continue to supplement potassium. Recheck labs in the morning. 15. Hypocalcemia: Supplement calcium. 16. GI prophylaxis: Pepcid. 17. DVT prophylaxis: Heparin. 18. Chest pain: Resolved. Problem Qualifiers (1) Type 2 diabetes mellitus: Qualified Code: E11.51 - Type 2 diabetes mellitus with diabetic peripheral angiopathy without gangrene, without long-term current use of insulin David Arriaza MD Jul 26, 2016 11:03
[2016-07-27] VITALS (11 sets, daily range): BP systolic 118–145; BP diastolic 56–65; PULSE 64–82; RESP 16–20; TEMP 97.3–98.4; O2SAT 95–98
[2016-07-27] MEDS: metroNIDAZOLE 500 MG INJ 100 ML IV SCH ×3 (03:17→17:31)
[2016-07-27] MEDS: CHLORHEXIDINE GLUCONATE 2 % 1 PACK (2 CLOTHS) TOP SCH (03:59)
[2016-07-27] MEDS: INSULIN ASPART SUPPLEMENTAL SCALE SQ SCH ×4 (06:54→21:00)
[2016-07-27] MEDS: NS + KCL 20 MEQ INJ 1,000 ML IV SCH (07:01)
[2016-07-27] MEDS: CALCIUM/VITAMIN D 250 MG/125 U TAB PO SCH (09:00)
[2016-07-27] MEDS: SODIUM CHLORIDE 0.9% FLUSH 5 ML FLUSH IV FLUSH SCH ×2 (09:00→21:00)
[2016-07-27] MEDS: DILTIAZEM-CD 120 MG CAP ER PO SCH (09:49)
[2016-07-27] MEDS: NYSTATIN SUSP 500,000 U/5 ML CUP SWISH-SWAL SCH ×4 (09:49→22:15)
[2016-07-27] MEDS: ATORVASTATIN 20 MG TAB PO SCH (09:49)
[2016-07-27] MEDS: VANCOMYCIN 500 MG VIAL (FOR ORAL USE ONLY) PO SCH ×4 (09:49→22:16)
[2016-07-27] MEDS: FAMOTIDINE 20 MG TAB PO SCH ×2 (09:49→22:15)
[2016-07-27] MEDS: METOPROLOL TARTRATE 25 MG TAB PO SCH ×2 (09:49→22:15)
[2016-07-27] MEDS: POTASSIUM CHLORIDE 20 MEQ CONTROLLED RELEASE TAB PO SCH (09:50)
[2016-07-27] MEDS: VANCOMYCIN INJ 1,250 MG in SODIUM CHLOR 0.9% 250 ML INJ 250 ML IV SCH (13:00)
--- NOTE | 2016-07-27 13:05 | HHI.IDPN ---
Note Infectious Disease Note Patient is comfortable. No complaints. No distress. Very little stool. Afebrile. Notes he gets pain in the left hip. very little PO intake. ANTIBIOTICS: Vancomycin IV. Flagyl IV Vanco PO. OBJECTIVE: Vital Signs Date Time Temp Pulse Resp B/P Pulse Ox O2 Delivery O2 Flow Rate FiO2 07/27/16 12:00 98.2 76 20 118/59 98 07/27/16 08:00 97.3 66 16 137/63 97 07/27/16 06:29 97.6 67 18 145/65 97 07/27/16 01:56 97.8 75 20 130/65 96 07/27/16 00:04 96 Nasal Cannula 3.00 07/26/16 21:22 97.8 74 18 152/65 97 07/26/16 20:00 Nasal Cannula 3.00 07/26/16 16:00 98.4 61 20 143/65 98 07/26/16 07/26/16 07/27/16 15:00 23:00 07:00 Intake Total 240 ml 1116 ml Output Total 900 ml 350 ml 350 ml Balance -660 ml -350 ml 766 ml Intake Oral 240 ml IV Total 1116 ml Output Urine Total 900 ml 350 ml 350 ml # Bowel Movements 0 0 0 Laboratory Tests Test 07/26/16 06:13 White Blood Count 14.2 TH/MM3 Red Blood Count 2.85 MIL/MM3 Hemoglobin 8.2 GM/DL Hematocrit 25.3 % Mean Corpuscular Volume 88.6 FL Mean Corpuscular Hemoglobin 28.6 PG Mean Corpuscular Hemoglobin 32.3 % Concent Red Cell Distribution Width 18.9 % Platelet Count 314 TH/MM3 Mean Platelet Volume 8.9 FL Neutrophils (%) (Auto) % Lymphocytes (%) (Auto) % Monocytes (%) (Auto) % Eosinophils (%) (Auto) % Basophils (%) (Auto) % Neutrophils # (Auto) TH/MM3 Lymphocytes # (Auto) TH/MM3 Monocytes # (Auto) TH/MM3 Eosinophils # (Auto) TH/MM3 Basophils # (Auto) TH/MM3 CBC Comment AUTO DIFF Differential Total Cells 100 Counted Neutrophils % (Manual) 78 % Lymphocytes % 17 % Monocytes % 3 % Eosinophils % 2 % Neutrophils # (Manual) 11.1 TH/MM3 Differential Comment FINAL DIFF MANUAL Platelet Estimate NORMAL Platelet Morphology Comment NORMAL Acanthocytes 1+ Hematology Comments Laboratory Tests Test 07/26/16 07/27/16 06:13 07:46 Sodium Level 145 MEQ/L Potassium Level 4.1 MEQ/L Chloride Level 112 MEQ/L Carbon Dioxide Level 25.4 MEQ/L Anion Gap 8 MEQ/L Blood Urea Nitrogen 7 MG/DL Creatinine 0.75 MG/DL 0.84 MG/DL Estimat Glomerular Filtration 101 ML/MIN 89 ML/MIN Rate Random Glucose 79 MG/DL Calcium Level 7.2 MG/DL Protein Corrected Calcium 8.2 MG/DL Phosphorus Level 2.0 MG/DL Magnesium Level 1.4 MG/DL Total Protein 5.3 GM/DL GENERAL: No acute distress. Awake. Responsive. HEENT: PERRL. EOMI, No icterus. NECK: Supple, no adenopathy. LUNGS: Breath sounds clear. CARDIAC: Regular rate and rhythm. ABDOMEN: (+) BS, Soft, non tender. MUSCULOSKELETAL: R. hip wound without drainage. Dry necrotic eschar over the incision. Lesion around the size of a quarter. Surrounding erythema. No drainage. : Scrotal edema decreased. EXTREMITIES: No CCE. Skin tear at extremities. SKIN: No rash. ASSESSMENT: R. hip wound infection - MRSA. Post R. hip arthroplasty. C. diff colitis. Leukocytosis - Persisting. PLAN. Continue Vancomycin IV. Continue Flagyl IV for c. diff. Continue Vancomycin PO for c. diff. hyper virulent strain. Monitor the left hip wound. Monitor clinical response. Pablo Draper MD Jul 27, 2016 13:05
--- NOTE | 2016-07-27 13:17 | HHI.PR ---
Subjective Remarks patient states minimal pain left hip area no diarrhea Objective Vitals Vital Signs Date Time Temp Pulse Resp B/P Pulse Ox O2 Delivery O2 Flow Rate FiO2 07/27/16 12:00 98.2 76 20 118/59 98 07/27/16 08:00 97.3 66 16 137/63 97 07/27/16 06:29 97.6 67 18 145/65 97 07/27/16 01:56 97.8 75 20 130/65 96 07/27/16 00:04 96 Nasal Cannula 3.00 07/26/16 21:22 97.8 74 18 152/65 97 07/26/16 20:00 Nasal Cannula 3.00 07/26/16 16:00 98.4 61 20 143/65 98 I/O 07/26/16 07/26/16 07/26/16 07/27/16 07/27/16 07/27/16 07:00 15:00 23:00 07:00 15:00 23:00 Intake Total 416 ml 240 ml 1116 ml Output Total 150 ml 900 ml 350 ml 350 ml Balance 266 ml -660 ml -350 ml 766 ml Intake Oral 60 ml 240 ml IV Total 356 ml 1116 ml Output Urine Total 150 ml 900 ml 350 ml 350 ml # Bowel Movements 0 0 0 Result Diagram: 07/26/16 0613 07/27/16 0746 Imaging Last Impressions Hip Aspiration/Injection 07/15/16 0000 Signed Impressions: Service Date/Time: July 15:55 - CONCLUSION: Uncomplicated aspiration as above. Aniceto Vasquez MD Chest X-Ray 07/12/161957 Signed Impressions: Service Date/Time: Tuesday, July 12, 2016 20:23 - CONCLUSION: 1. Postoperative CABG. Remote granulomatous disease. No effusion or pneumothorax. Tony Galloway MD Pelvis X-Ray 07/12/16 0000 Signed Impressions: Service Date/Time: Tuesday, July 12, 2016 20:17 - CONCLUSION: 1. Postoperative left total hip replacement. Osteopenia. No acute bony abnormalities. Tony Galloway MD Objective Remarks awake and alert anicteric no rales irregular rhythm abdomen soft, nontender left hip= dry eschar over post op area, no drainage, another area of dry wound- no surrounding erythema extremities no edema Procedures 07/15/16 left hip aspiration A/P Problem List: (1) Atrial fibrillation with RVR ICD Code: I48.91 Status: Acute (2) Sepsis ICD Code: A41.9 Status: Acute (3) Thrombus of left atrial appendage without antecedent myocardial infarction ICD Code: I51.3 Status: Acute (4) HTN (hypertension) ICD Code: I10 Status: Chronic (5) Type 2 diabetes mellitus ICD Code: E11.9 Status: Chronic (6) Hypocalcemia ICD Code: E83.51 Status: Resolved (7) Hypomagnesemia ICD Code: E83.42 Status: Acute (8) Hypokalemia ICD Code: E87.6 Status: Resolved (9) Chronic systolic CHF (congestive heart failure) ICD Code: I50.22 Status: Chronic (10) Fracture of left hip requiring operative repair ICD Code: S72.002A Status: Acute (11) Hx of coronary artery disease ICD Code: Z86.79 Status: Chronic (12) C. difficile colitis ICD Code: A04.7 Status: Acute Assessment and Plan 76 years old male 1. Atrial fibrillation with RVR- rate better controlled. Continue oral Cardizem CD 120 mg daily, metoprolol. Digoxin on hold. Plavix on hold. Heparin discontinued by cardiology. 2. Left atrial thrombus: Appreciate cardiology recommendations. Likely secondary to [place] in the past. Heparin discontinued by cardiology. 3. Sepsis secondary to C. difficile: Diarrhea has decreased. Leukocytosis continues to improve. Continue IV Flagyl, oral vancomycin for highly virulent strain of C. difficile. 4. Chronic systolic congestive heart failure with mild exacerbation: Exacerbation has resolved. Lasix on hold. Ejection fraction 40% on echocardiogram. Continue beta anthony. 5. Hypertension: Norvasc on hold. Continue metoprolol. 6. Left hip MRSA wound and right lateral heel cellulitis: Appreciate orthopedic surgery recommendations. on IV vancomycin. ID ff. 7. Anemia: Stable. 8. Left hip fracture status post ORIF in May 2016. Appreciate orthopedic surgery recommendations. Continue physical therapy. 9. Poor oral intake: Continue pureed diet. IV fluids. 10. Peripheral vascular disease: Status post lower extremity bypass. 11. Dementia: Continue supportive care. 12. Diabetes mellitus: Monitor Accu-Cheks and cover with sliding scale insulin. 13. Hypomagnesemia: Improved. 14. Hypokalemia: Continue to supplement potassium. Recheck labs in the morning. 15. Hypocalcemia: Supplement calcium. 16. GI prophylaxis: Pepcid. 17. DVT prophylaxis: Heparin. 18. Chest pain: Resolved. Problem Qualifiers (1) Type 2 diabetes mellitus: Qualified Code: E11.51 - Type 2 diabetes mellitus with diabetic peripheral angiopathy without gangrene, without long-term current use of insulin David Arriaza MD Jul 27, 2016 13:17
[2016-07-27] MEDS: NICOTINE 7 MG/24 HR PATCH TD SCH (17:33)
[2016-07-28] VITALS (9 sets, daily range): BP systolic 123–152; BP diastolic 58–93; PULSE 42–85; RESP 18–20; TEMP 97.4–98.2; O2SAT 93–99
[2016-07-28] MEDS: metroNIDAZOLE 500 MG INJ 100 ML IV SCH ×3 (02:59→18:59)
[2016-07-28] MEDS: CHLORHEXIDINE GLUCONATE 2 % 1 PACK (2 CLOTHS) TOP SCH (04:00)
[2016-07-28] MEDS: INSULIN ASPART SUPPLEMENTAL SCALE SQ SCH ×4 (06:27→21:57)
[2016-07-28] MEDS: NYSTATIN SUSP 500,000 U/5 ML CUP SWISH-SWAL SCH ×4 (09:41→21:57)
[2016-07-28] MEDS: NICOTINE 7 MG/24 HR PATCH TD SCH (09:41)
[2016-07-28] MEDS: POTASSIUM CHLORIDE 20 MEQ CONTROLLED RELEASE TAB PO SCH (09:42)
[2016-07-28] MEDS: ATORVASTATIN 20 MG TAB PO SCH (09:42)
[2016-07-28] MEDS: CALCIUM/VITAMIN D 250 MG/125 U TAB PO SCH (09:42)
[2016-07-28] MEDS: SODIUM CHLORIDE 0.9% FLUSH 5 ML FLUSH IV FLUSH SCH ×2 (09:42→21:00)
[2016-07-28] MEDS: DILTIAZEM-CD 120 MG CAP ER PO SCH (09:42)
[2016-07-28] MEDS: VANCOMYCIN 500 MG VIAL (FOR ORAL USE ONLY) PO SCH ×4 (09:42→21:58)
[2016-07-28] MEDS: METOPROLOL TARTRATE 25 MG TAB PO SCH ×2 (09:42→21:58)
[2016-07-28] MEDS: FAMOTIDINE 20 MG TAB PO SCH ×2 (09:42→21:58)
[2016-07-28] MEDS: NS + KCL 20 MEQ INJ 1,000 ML IV SCH (09:43)
--- NOTE | 2016-07-28 13:38 | HHI.PR ---
Subjective Remarks no complains stool frequency decrease po intake gradually improving but needs to be fed Objective Vitals Vital Signs Date Time Temp Pulse Resp B/P Pulse Ox O2 Delivery O2 Flow Rate FiO2 07/28/16 11:29 93 Nasal Cannula 2.00 07/28/16 08:00 97.9 82 20 152/60 98 07/28/16 04:17 98.2 76 18 134/93 99 07/27/16 22:00 98.4 70 20 124/57 95 07/27/16 20:00 Nasal Cannula 3.00 07/27/16 20:00 82 07/27/16 20:00 98.0 71 17 120/56 96 07/27/16 16:59 97 Nasal Cannula 2.00 07/27/16 16:00 97.8 71 20 127/62 97 I/O 07/27/16 07/27/16 07/27/16 07/28/16 07/28/16 07/28/16 07:00 15:00 23:00 07:00 15:00 23:00 Intake Total 1116 ml 500 ml 240 ml Output Total 350 ml 400 ml 500 ml Balance 766 ml 100 ml -260 ml Intake Oral 500 ml 240 ml IV Total 1116 ml Output Urine Total 350 ml 400 ml 500 ml # Bowel Movements 0 0 0 Result Diagram: 07/26/16 0613 07/27/16 0746 Imaging Last Impressions Hip Aspiration/Injection 07/15/16 0000 Signed Impressions: Service Date/Time: July 15:55 - CONCLUSION: Uncomplicated aspiration as above. Aniceto Vasquez MD Chest X-Ray 07/12/161957 Signed Impressions: Service Date/Time: Tuesday, July 12, 2016 20:23 - CONCLUSION: 1. Postoperative CABG. Remote granulomatous disease. No effusion or pneumothorax. Tony Galloway MD Pelvis X-Ray 07/12/16 0000 Signed Impressions: Service Date/Time: Tuesday, July 12, 2016 20:17 - CONCLUSION: 1. Postoperative left total hip replacement. Osteopenia. No acute bony abnormalities. Tony Galloway MD Objective Remarks awake and alert anicteric no rales irregular rhythm abdomen soft, nontender left hip= dry eschar over post op area, no drainage, another area of dry wound- no surrounding erythema extremities no edema Procedures 07/15/16 left hip aspiration A/P Problem List: (1) Atrial fibrillation with RVR ICD Code: I48.91 Status: Acute (2) Sepsis ICD Code: A41.9 Status: Acute (3) Thrombus of left atrial appendage without antecedent myocardial infarction ICD Code: I51.3 Status: Acute (4) HTN (hypertension) ICD Code: I10 Status: Chronic (5) Type 2 diabetes mellitus ICD Code: E11.9 Status: Chronic (6) Hypocalcemia ICD Code: E83.51 Status: Resolved (7) Hypomagnesemia ICD Code: E83.42 Status: Acute (8) Hypokalemia ICD Code: E87.6 Status: Resolved (9) Chronic systolic CHF (congestive heart failure) ICD Code: I50.22 Status: Chronic (10) Fracture of left hip requiring operative repair ICD Code: S72.002A Status: Acute (11) Hx of coronary artery disease ICD Code: Z86.79 Status: Chronic (12) C. difficile colitis ICD Code: A04.7 Status: Acute Assessment and Plan 76 years old male 1. Atrial fibrillation with RVR- rate better controlled. Continue oral Cardizem CD 120 mg daily, metoprolol. Digoxin on hold. Plavix on hold. Heparin discontinued by cardiology. 2. Left atrial thrombus: Appreciate cardiology recommendations. Likely secondary to [place] in the past. Heparin discontinued by cardiology. 3. Sepsis secondary to C. difficile: Diarrhea has decreased. Leukocytosis continues to improve. Continue IV Flagyl, oral vancomycin for highly virulent strain of C. difficile. 4. Chronic systolic congestive heart failure with mild exacerbation: Exacerbation has resolved. Lasix on hold. Ejection fraction 40% on echocardiogram. Continue beta anthony. 5. Hypertension: Norvasc on hold. Continue metoprolol. 6. Left hip MRSA wound and right lateral heel cellulitis: Appreciate orthopedic surgery recommendations. on IV vancomycin. ID ff. 7. Anemia: Stable. 8. Left hip fracture status post ORIF in May 2016. Appreciate orthopedic surgery recommendations. Continue physical therapy. 9. Poor oral intake: Continue pureed diet. 10. Peripheral vascular disease: Status post lower extremity bypass. 11. Dementia: Continue supportive care. 12. Diabetes mellitus: Monitor Accu-Cheks and cover with sliding scale insulin. 13. Hypomagnesemia: Improved. 14. Hypokalemia: Continue to supplement potassium. 15. Hypocalcemia: Supplement calcium. 16. GI prophylaxis: Pepcid. 17. DVT prophylaxis: Heparin. 18. Chest pain: Resolved. Problem Qualifiers (1) Type 2 diabetes mellitus: Qualified Code: E11.51 - Type 2 diabetes mellitus with diabetic peripheral angiopathy without gangrene, without long-term current use of insulin David Arriaza MD Jul 28, 2016 13:38
[2016-07-28 14:28] LABS: BICARBONATE 20.5 MEQ/L (21.0-32.0); MAGNESIUM 1.4 MG/DL (1.5-2.5); POTASSIUM 5.3 MEQ/L (3.5-5.1)
[2016-07-29] VITALS (8 sets, daily range): BP systolic 125–166; BP diastolic 60–72; PULSE 66–81; RESP 16–22; TEMP 97.4–99.1; O2SAT 97–100
[2016-07-29] MEDS: VANCOMYCIN INJ 1,250 MG in SODIUM CHLOR 0.9% 250 ML INJ 250 ML IV SCH (00:49)
[2016-07-29] MEDS: metroNIDAZOLE 500 MG INJ 100 ML IV SCH ×3 (02:04→17:19)
[2016-07-29] MEDS: CHLORHEXIDINE GLUCONATE 2 % 1 PACK (2 CLOTHS) TOP SCH (03:29)
[2016-07-29 06:18] LABS: HEMATOCRIT 26.1 % (39.0-51.0); MEAN CELL VOLUME 89.2 FL (80.0-100.0); MEAN CORPUSCULAR HEMOGLOBIN 28.5 PG (27.0-34.0); MEAN CORPUSCULAR HGB CONC 31.9 % (32.0-36.0); PLATELET COUNT 441 TH/MM3 (150-450); RED BLOOD COUNT 2.93 MIL/MM3 (4.50-5.90); RED CELL DISTRIBUTION WIDTH 18.7 % (11.6-17.2); REVIEW FLAG FINAL; WHITE BLOOD COUNT 11.9 TH/MM3 (4.0-11.0)
[2016-07-29] MEDS: NS + KCL 20 MEQ INJ 1,000 ML IV SCH (06:33)
[2016-07-29] MEDS: INSULIN ASPART SUPPLEMENTAL SCALE SQ SCH ×4 (06:33→21:00)
[2016-07-29 06:41] LABS: BICARBONATE 25.1 MEQ/L (21.0-32.0); POTASSIUM 3.5 MEQ/L (3.5-5.1)
[2016-07-29] MEDS: SODIUM CHLORIDE 0.9% FLUSH 5 ML FLUSH IV FLUSH SCH ×2 (08:42→21:00)
[2016-07-29] MEDS: POTASSIUM CHLORIDE 20 MEQ CONTROLLED RELEASE TAB PO SCH (08:43)
[2016-07-29] MEDS: DILTIAZEM-CD 120 MG CAP ER PO SCH (08:43)
[2016-07-29] MEDS: VANCOMYCIN 500 MG VIAL (FOR ORAL USE ONLY) PO SCH ×5 (08:43→23:03)
[2016-07-29] MEDS: ATORVASTATIN 20 MG TAB PO SCH (08:43)
[2016-07-29] MEDS: NYSTATIN SUSP 500,000 U/5 ML CUP SWISH-SWAL SCH ×4 (08:43→23:04)
[2016-07-29] MEDS: NICOTINE 7 MG/24 HR PATCH TD SCH (08:43)
[2016-07-29] MEDS: CALCIUM/VITAMIN D 250 MG/125 U TAB PO SCH (08:43)
[2016-07-29] MEDS: FAMOTIDINE 20 MG TAB PO SCH ×2 (08:43→23:01)
[2016-07-29] MEDS: METOPROLOL TARTRATE 25 MG TAB PO SCH ×2 (08:44→23:01)
--- NOTE | 2016-07-29 10:09 | HHI.PR ---
Subjective Remarks + soft brown stools on exam Objective Vitals Vital Signs Date Time Temp Pulse Resp B/P Pulse Ox O2 Delivery O2 Flow Rate FiO2 07/29/16 08:04 97.4 78 16 153/72 100 07/29/16 04:00 97.5 73 20 166/70 98 07/29/16 00:00 97.8 74 22 125/60 99 07/28/16 22:01 97.4 78 18 123/58 98 07/28/16 20:00 80 07/28/16 19:00 Nasal Cannula 2.00 07/28/16 18:33 93 Nasal Cannula 2.00 07/28/16 16:00 97.6 85 20 145/65 99 07/28/16 12:00 97.7 68 20 149/66 93 07/28/16 11:29 93 Nasal Cannula 2.00 I/O 07/28/16 07/28/16 07/28/16 07/29/16 07/29/16 07/29/16 07:00 15:00 23:00 07:00 15:00 23:00 Intake Total 240 ml 0 ml 549 ml 120 ml Output Total 500 ml 850 ml 500 ml 1000 ml Balance -260 ml -850 ml 49 ml -880 ml Intake Oral 240 ml 0 ml 120 ml 120 ml IV Total 429 ml Output Urine Total 500 ml 850 ml 500 ml 1000 ml Stool Total 0 ml # Bowel Movements 0 1 0 Result Diagram: 07/29/1651807/29/16 0519 Imaging Last Impressions Hip Aspiration/Injection 07/15/16 0000 Signed Impressions: Service Date/Time: July 15:55 - CONCLUSION: Uncomplicated aspiration as above. Aniceto Vasquez MD Chest X-Ray 07/12/161957 Signed Impressions: Service Date/Time: Tuesday, July 12, 2016 20:23 - CONCLUSION: 1. Postoperative CABG. Remote granulomatous disease. No effusion or pneumothorax. Tony Galloway MD Pelvis X-Ray 07/12/16 0000 Signed Impressions: Service Date/Time: Tuesday, July 12, 2016 20:17 - CONCLUSION: 1. Postoperative left total hip replacement. Osteopenia. No acute bony abnormalities. Tony Galloway MD Objective Remarks awake and alert anicteric no rales irregular rhythm abdomen soft, nontender left LE- starting to have left lateral flexion contracture lower leg- dry scab lateral aspect left hip now with 3.9 x 6.8 yellow slough area just below is the dry eschar 9.5 x 4.5 now with some serouls, lt yellowish drainage coccyx - decubitus extremities no edema Procedures 07/15/16 left hip aspiration A/P Problem List: (1) Atrial fibrillation with RVR ICD Code: I48.91 Status: Acute (2) Sepsis ICD Code: A41.9 Status: Acute (3) Thrombus of left atrial appendage without antecedent myocardial infarction ICD Code: I51.3 Status: Acute (4) HTN (hypertension) ICD Code: I10 Status: Chronic (5) Type 2 diabetes mellitus ICD Code: E11.9 Status: Chronic (6) Hypocalcemia ICD Code: E83.51 Status: Resolved (7) Hypomagnesemia ICD Code: E83.42 Status: Acute (8) Hypokalemia ICD Code: E87.6 Status: Resolved (9) Chronic systolic CHF (congestive heart failure) ICD Code: I50.22 Status: Chronic (10) Fracture of left hip requiring operative repair ICD Code: S72.002A Status: Acute (11) Hx of coronary artery disease ICD Code: Z86.79 Status: Chronic (12) C. difficile colitis ICD Code: A04.7 Status: Acute Assessment and Plan 76 years old male 1. Atrial fibrillation with RVR- rate better controlled. Continue oral Cardizem CD 120 mg daily, metoprolol. Digoxin on hold. Plavix on hold. Heparin discontinued by cardiology. 2. Left atrial thrombus: Appreciate cardiology recommendations. Likely secondary to [place] in the past. Heparin discontinued by cardiology. 3. Sepsis secondary to C. difficile: Continue IV Flagyl, oral vancomycin for highly virulent strain of C. difficile. check BMP 4. Chronic systolic congestive heart failure with mild exacerbation: Exacerbation has resolved. Lasix on hold. Ejection fraction 40% on echocardiogram. Continue beta anthony. 5. Hypertension: Norvasc on hold. Continue metoprolol. 6. Left hip MRSA wound and right lateral heel cellulitis: Appreciate orthopedic surgery recommendations. on IV vancomycin. ID ff. Another area just below above with open wound wound care team ff. will consult Plastics srugery service to evaluate above wounds for debridement Left LE lateral aspect of lower leg- dry scab- no signs of infection 7. Anemia: Stable. 8. Left hip fracture status post ORIF in May 2016. Appreciate orthopedic surgery recommendations. Continue physical therapy. 9. Poor oral intake: Continue pureed diet. 10. Peripheral vascular disease: Status post lower extremity bypass. 11. Dementia: Continue supportive care. 12. Diabetes mellitus: Monitor Accu-Cheks and cover with sliding scale insulin. 13. Hypomagnesemia: Improved. 14. Hypokalemia: Continue to supplement potassium. 15. Hypocalcemia: Supplement calcium. 16. GI prophylaxis: Pepcid. 17. DVT prophylaxis: Heparin. 18. Chest pain: Resolved. Problem Qualifiers (1) Type 2 diabetes mellitus: Qualified Code: E11.51 - Type 2 diabetes mellitus with diabetic peripheral angiopathy without gangrene, without long-term current use of insulin David Arriaza MD Jul 29, 2016 10:09
[2016-07-29] MEDS: COLLAGENASE OINT 30 GM TUBE TOP SCH (13:19)
[2016-07-30] VITALS (9 sets, daily range): BP systolic 112–154; BP diastolic 54–80; PULSE 68–81; RESP 18–20; TEMP 97.5–98.6; O2SAT 93–100
[2016-07-30] MEDS: metroNIDAZOLE 500 MG INJ 100 ML IV SCH ×3 (02:44→17:38)
[2016-07-30] MEDS: CHLORHEXIDINE GLUCONATE 2 % 1 PACK (2 CLOTHS) TOP SCH (02:44)
[2016-07-30] MEDS: NS + KCL 20 MEQ INJ 1,000 ML IV SCH (06:52)
[2016-07-30] MEDS: INSULIN ASPART SUPPLEMENTAL SCALE SQ SCH ×4 (06:52→22:52)
[2016-07-30] MEDS: SODIUM CHLORIDE 0.9% FLUSH 5 ML FLUSH IV FLUSH SCH ×2 (09:00→22:52)
[2016-07-30] MEDS: CALCIUM/VITAMIN D 250 MG/125 U TAB PO SCH (09:06)
[2016-07-30] MEDS: METOPROLOL TARTRATE 25 MG TAB PO SCH ×2 (09:06→22:51)
[2016-07-30] MEDS: POTASSIUM CHLORIDE 20 MEQ CONTROLLED RELEASE TAB PO SCH (09:06)
[2016-07-30] MEDS: ATORVASTATIN 20 MG TAB PO SCH (09:06)
[2016-07-30] MEDS: NYSTATIN SUSP 500,000 U/5 ML CUP SWISH-SWAL SCH ×4 (09:06→22:51)
[2016-07-30] MEDS: VANCOMYCIN 500 MG VIAL (FOR ORAL USE ONLY) PO SCH ×4 (09:06→22:51)
[2016-07-30] MEDS: NICOTINE 7 MG/24 HR PATCH TD SCH (09:06)
[2016-07-30] MEDS: FAMOTIDINE 20 MG TAB PO SCH ×2 (09:06→22:51)
[2016-07-30] MEDS: COLLAGENASE OINT 30 GM TUBE TOP SCH (09:11)
[2016-07-30] MEDS: DILTIAZEM-CD 120 MG CAP ER PO SCH (09:20)
[2016-07-30] MEDS: VANCOMYCIN INJ 1,250 MG in SODIUM CHLOR 0.9% 250 ML INJ 250 ML IV SCH (12:19)
[2016-07-30] MEDS ORDERED: PHARMACY ORDERED LAB XX ONE (12:45)
--- NOTE | 2016-07-30 13:53 | HHI.PR ---
Subjective Remarks no complains feels "good" Objective Vitals Vital Signs Date Time Temp Pulse Resp B/P Pulse Ox O2 Delivery O2 Flow Rate FiO2 07/30/16 10:36 99 2.00 07/30/16 08:04 98.2 80 20 138/62 96 07/30/16 07:09 Nasal Cannula 2.00 07/30/16 07:09 68 07/30/16 04:00 98.6 70 20 146/65 99 07/30/16 00:00 98.0 80 20 154/70 98 07/29/16 20:00 97.7 81 20 145/68 99 07/29/16 20:00 80 07/29/16 20:00 Nasal Cannula 2.00 07/29/16 16:04 99.1 77 16 151/64 100 I/O 07/29/16 07/29/16 07/29/16 07/30/16 07/30/16 07/30/16 07:00 15:00 23:00 07:00 15:00 23:00 Intake Total 120 ml 240 ml 220 ml 792 ml Output Total 1000 ml 500 ml 300 ml 300 ml Balance -880 ml -260 ml -80 ml 492 ml Intake Oral 120 ml 240 ml 220 ml 120 ml IV Total 672 ml Output Urine Total 1000 ml 500 ml 300 ml 300 ml Stool Total 0 ml # Bowel Movements 2 0 0 Result Diagram: 07/29/1651807/29/16518 Imaging Last Impressions Hip Aspiration/Injection 07/15/16 0000 Signed Impressions: Service Date/Time: July 15:55 - CONCLUSION: Uncomplicated aspiration as above. Aniceto Vasquez MD Chest X-Ray 07/12/161957 Signed Impressions: Service Date/Time: Tuesday, July 12, 2016 20:23 - CONCLUSION: 1. Postoperative CABG. Remote granulomatous disease. No effusion or pneumothorax. Tony Galloway MD Pelvis X-Ray 07/12/16 0000 Signed Impressions: Service Date/Time: Tuesday, July 12, 2016 20:17 - CONCLUSION: 1. Postoperative left total hip replacement. Osteopenia. No acute bony abnormalities. Tony Galloway MD Objective Remarks awake and alert anicteric no rales irregular rhythm abdomen soft, nontender left LE- starting to have left lateral flexion contracture lower leg- dry scab lateral aspect left hip now with 3.9 x 6.8 yellow slough area just below is the dry eschar 9.5 x 4.5 - now dry coccyx - decubitus extremities no edema Procedures 07/15/16 left hip aspiration A/P Problem List: (1) Atrial fibrillation with RVR ICD Code: I48.91 Status: Acute (2) Sepsis ICD Code: A41.9 Status: Acute (3) Thrombus of left atrial appendage without antecedent myocardial infarction ICD Code: I51.3 Status: Acute (4) HTN (hypertension) ICD Code: I10 Status: Chronic (5) Type 2 diabetes mellitus ICD Code: E11.9 Status: Chronic (6) Hypocalcemia ICD Code: E83.51 Status: Resolved (7) Hypomagnesemia ICD Code: E83.42 Status: Acute (8) Hypokalemia ICD Code: E87.6 Status: Resolved (9) Chronic systolic CHF (congestive heart failure) ICD Code: I50.22 Status: Chronic (10) Fracture of left hip requiring operative repair ICD Code: S72.002A Status: Acute (11) Hx of coronary artery disease ICD Code: Z86.79 Status: Chronic (12) C. difficile colitis ICD Code: A04.7 Status: Acute Assessment and Plan 76 years old male 1. Atrial fibrillation with RVR- rate better controlled. Continue oral Cardizem CD 120 mg daily, metoprolol. Digoxin on hold. Plavix on hold. Heparin discontinued by cardiology. 2. Left atrial thrombus: Appreciate cardiology recommendations. Likely secondary to [place] in the past. Heparin discontinued by cardiology. 3. Sepsis secondary to C. difficile: Continue IV Flagyl, oral vancomycin for highly virulent strain of C. difficile. ff BMP 4. Chronic systolic congestive heart failure with mild exacerbation: Exacerbation has resolved. Lasix on hold. Ejection fraction 40% on echocardiogram. Continue beta anthony. 5. Hypertension: Norvasc on hold. Continue metoprolol. 6. Left hip MRSA wound and right lateral heel cellulitis: Appreciate orthopedic surgery recommendations. on IV vancomycin. ID ff. Another area just below above with open wound wound care team ff. Plastics surgery service consulted 07/29 to evaluate above wounds for debridement Left LE lateral aspect of lower leg- dry scab- no signs of infection 7. Anemia: Stable. 8. Left hip fracture status post ORIF in May 2016. Appreciate orthopedic surgery recommendations. Continue physical therapy. 9. Poor oral intake: Continue pureed diet. 10. Peripheral vascular disease: Status post lower extremity bypass. 11. Dementia: Continue supportive care. 12. Diabetes mellitus: Monitor Accu-Cheks and cover with sliding scale insulin. 13. Hypomagnesemia: replace. recheck in am 14. Hypokalemia: Continue to supplement potassium. 15. Hypocalcemia: Supplement calcium. 16. GI prophylaxis: Pepcid. 17. DVT prophylaxis: Heparin. 18. Chest pain: Resolved. Problem Qualifiers (1) Type 2 diabetes mellitus: Qualified Code: E11.51 - Type 2 diabetes mellitus with diabetic peripheral angiopathy without gangrene, without long-term current use of insulin David Arriaza MD Jul 30, 2016 13:53
[2016-07-30] MEDS ORDERED: MAGNESIUM SULFATE 1 GM PREMIX 100 ML IV ONE (14:00)
--- NOTE | 2016-07-30 14:05 | HHI.IDPN ---
Note Infectious Disease Note Patient is comfortable. He is confused. No complaints. No distress. Stool is loose but not watery. Afebrile. ANTIBIOTICS: Vancomycin IV. Flagyl IV Vanco PO. OBJECTIVE: Vital Signs Date Time Temp Pulse Resp B/P Pulse Ox O2 Delivery O2 Flow Rate FiO2 07/30/16 10:36 99 2.00 07/30/16 08:04 98.2 80 20 138/62 96 07/30/16 07:09 Nasal Cannula 2.00 07/30/16 07:09 68 07/30/16 04:00 98.6 70 20 146/65 99 07/30/16 00:00 98.0 80 20 154/70 98 07/29/16 20:00 97.7 81 20 145/68 99 07/29/16 20:00 80 07/29/16 20:00 Nasal Cannula 2.00 07/29/16 16:04 99.1 77 16 151/64 100 07/29/16 07/29/16 07/30/16 15:00 23:00 07:00 Intake Total 240 ml 220 ml 792 ml Output Total 500 ml 300 ml 300 ml Balance -260 ml -80 ml 492 ml Intake Oral 240 ml 220 ml 120 ml IV Total 672 ml Output Urine Total 500 ml 300 ml 300 ml # Bowel Movements 2 0 0 Laboratory Tests Test 07/29/16 05:19 White Blood Count 11.9 TH/MM3 Red Blood Count 2.93 MIL/MM3 Hemoglobin 8.3 GM/DL Hematocrit 26.1 % Mean Corpuscular Volume 89.2 FL Mean Corpuscular Hemoglobin 28.5 PG Mean Corpuscular Hemoglobin 31.9 % Concent Red Cell Distribution Width 18.7 % Platelet Count 441 TH/MM3 Mean Platelet Volume 8.5 FL Laboratory Tests Test 07/29/16 05:19 Sodium Level 142 MEQ/L Potassium Level 3.5 MEQ/L Chloride Level 108 MEQ/L Carbon Dioxide Level 25.1 MEQ/L Anion Gap 9 MEQ/L Blood Urea Nitrogen 4 MG/DL Creatinine 0.86 MG/DL Estimat Glomerular Filtration 86 ML/MIN Rate Random Glucose 105 MG/DL Calcium Level 7.5 MG/DL Magnesium Level 1.4 MG/DL GENERAL: No acute distress. Confused. Responsive. HEENT: PERRL. EOMI, No icterus. NECK: Supple, no adenopathy. LUNGS: Breath sounds clear. CARDIAC: Regular rate and rhythm. ABDOMEN: (+) BS, Soft, non tender. MUSCULOSKELETAL: R. hip wound without drainage. Dry necrotic eschar x 2, one over the hip incision. Lesion around the size of a quarter. Decreased surrounding erythema. No drainage. : Scrotal edema decreased. EXTREMITIES: No CCE. Skin tear and excoriated lesions at extremities. SKIN: No rash. ASSESSMENT: R. hip wound infection - MRSA. Post R. hip arthroplasty. C. diff colitis. Leukocytosis - Persisting. PLAN. Continue Vancomycin IV. Plan on completing 6 weeks. Continue Flagyl IV for c. diff. Continue Vancomycin PO for c. diff. hyper virulent strain. Monitor the left hip wound. Monitor stools. Monitor clinical response. Pablo Draper MD Jul 30, 2016 14:05
--- NOTE | 2016-07-30 15:29 | MB ---
cc: EDWIGE DIXON M.D. DATE OF CONSULTATION: 07/30/2016. REASON FOR CONSULTATION: Decubitus ulcers. REQUESTING PHYSICIAN: The patient is being seen at the request of Dr. Arriaza. HISTORY OF PRESENT ILLNESS: The patient is a 76-year-old diabetic male with a history of hypertension, coronary artery disease status post CABG and dementia. The patient was in the emergency room on 07/12/2016 for general weakness and progressively worsening decubitus ulcers. The wounds were present at a prior left hip replacement. It was noted that the patient had a hip fracture in April and had a hip repair. He also went into renal failure at that time. The patient has had these ulcers and consultation is requested regarding evaluation and treatment of them. REVIEW OF SYSTEMS: The review of systems is gleaned from the chart as the patient has some onset of dementia and apparently it is negative. ALLERGIES: Allergies include: KENYAN CHEESE. PAST MEDICAL HISTORY: His past medical history is significant for: 1. Diabetes. 2. Hypertension. 3. Coronary artery disease as above. 4. Dementia. PAST SURGICAL HISTORY: As above. MEDICATIONS: Listed in the chart. FAMILY HISTORY: Noncontributory. SOCIAL HISTORY: Social history is negative. PHYSICAL EXAMINATION: GENERAL: On examination, the patient is lying comfortably in bed. HEAD, EYES, EARS, NOSE, THROAT: His extraocular muscles are intact. His pupils are equal round reactive to light. HEART: His heart is regular rate and rhythm. LUNGS: Clear. EXTREMITIES: Examination of his left hip area reveals a stage III decubitus ulcer. There is no evidence of surrounding cellulitis. The sizes of the wounds has been documented by the wound care nurse. In addition, over his sacrococcygeal area he does have also evidence of a stage III ulcer. There is no evidence of surrounding cellulitis. LABORATORY DATA: The patient was admitted with a white count of 17.6 and on the , it was 11.9. IMPRESSION: The patient has several stage III ulcers of the sacral area, the coccygeal area as well as the left hip. PLAN: 1. Wound care will be ordered. 2. I would like to see these dressed with povidone-iodine ointment on the wounds with zinc oxide surrounding it covered with a Mepilex dressings to be changed daily. This should help these areas begin to dry up, heal and separate. Debridement may or may not be needed in the future depending upon the level of healing that he undergoes. The patient will be followed by us as well as the wound care nurses. MD JERAMY Baker/CLOTILDE /3:06 PM /3:21 PM
[2016-07-31] VITALS (8 sets, daily range): BP systolic 114–148; BP diastolic 53–73; PULSE 65–78; RESP 18–20; TEMP 97.2–97.9; O2SAT 97–100
[2016-07-31] MEDS: metroNIDAZOLE 500 MG INJ 100 ML IV SCH ×3 (02:39→17:07)
[2016-07-31] MEDS: CHLORHEXIDINE GLUCONATE 2 % 1 PACK (2 CLOTHS) TOP SCH (02:39)
[2016-07-31] MEDS: INSULIN ASPART SUPPLEMENTAL SCALE SQ SCH ×4 (05:32→21:00)
[2016-07-31] MEDS: NS + KCL 20 MEQ INJ 1,000 ML IV SCH (06:17)
[2016-07-31] MEDS: POVIDONE IODINE 10% OINT 30 GM TUBE TOPICAL SCH (09:00)
[2016-07-31] MEDS: NICOTINE 7 MG/24 HR PATCH TD SCH (09:10)
[2016-07-31] MEDS: NYSTATIN SUSP 500,000 U/5 ML CUP SWISH-SWAL SCH ×4 (09:12→23:01)
[2016-07-31] MEDS: VANCOMYCIN 500 MG VIAL (FOR ORAL USE ONLY) PO SCH ×4 (09:12→23:01)
[2016-07-31] MEDS: CALCIUM/VITAMIN D 250 MG/125 U TAB PO SCH (09:12)
[2016-07-31] MEDS: METOPROLOL TARTRATE 25 MG TAB PO SCH ×2 (09:12→23:00)
[2016-07-31] MEDS: DILTIAZEM-CD 120 MG CAP ER PO SCH (09:12)
[2016-07-31] MEDS: ATORVASTATIN 20 MG TAB PO SCH (09:12)
[2016-07-31] MEDS: SODIUM CHLORIDE 0.9% FLUSH 5 ML FLUSH IV FLUSH SCH ×2 (09:12→23:00)
[2016-07-31] MEDS: FAMOTIDINE 20 MG TAB PO SCH ×2 (09:12→23:01)
[2016-07-31] MEDS: POTASSIUM CHLORIDE 20 MEQ CONTROLLED RELEASE TAB PO SCH (09:12)
[2016-07-31] MEDS: COLLAGENASE OINT 30 GM TUBE TOP SCH (09:14)
--- NOTE | 2016-07-31 09:14 | HHI.PR ---
Subjective Remarks appears comfortable, oriented to person and place afebrile stools loose but not watery, brown Objective Vitals Vital Signs Date Time Temp Pulse Resp B/P Pulse Ox O2 Delivery O2 Flow Rate FiO2 07/31/16 08:31 97.9 74 19 148/66 97 07/31/16 04:00 97.2 65 18 134/63 98 07/31/16 00:00 97.3 68 18 141/73 100 07/30/16 21:00 Nasal Cannula 2.00 07/30/16 20:00 81 07/30/16 18:30 96 Nasal Cannula 2.00 07/30/16 16:03 98.1 78 20 118/66 100 07/30/16 12:04 98.3 75 20 112/54 96 07/30/16 10:36 99 2.00 I/O 07/30/16 07/30/16 07/30/16 07/31/16 07/31/16 07/31/16 07:00 15:00 23:00 07:00 15:00 23:00 Intake Total 792 ml 280 ml 868 ml 120 ml Output Total 300 ml 1000 ml 800 ml 600 ml Balance 492 ml -720 ml 68 ml -480 ml Intake Oral 120 ml 280 ml 240 ml 120 ml IV Total 672 ml 628 ml Output Urine Total 300 ml 1000 ml 800 ml 600 ml # Bowel Movements 0 1 Result Diagram: 07/29/16 0519 07/31/16 0705 Imaging Last Impressions Hip Aspiration/Injection 07/15/16 0000 Signed Impressions: Service Date/Time: July 15:55 - CONCLUSION: Uncomplicated aspiration as above. Aniceto Vasquez MD Chest X-Ray 07/12/161957 Signed Impressions: Service Date/Time: Tuesday, July 12, 2016 20:23 - CONCLUSION: 1. Postoperative CABG. Remote granulomatous disease. No effusion or pneumothorax. Tony Galloway MD Pelvis X-Ray 07/12/16 0000 Signed Impressions: Service Date/Time: Tuesday, July 12, 2016 20:17 - CONCLUSION: 1. Postoperative left total hip replacement. Osteopenia. No acute bony abnormalities. Tony Galloway MD Objective Remarks awake and alert, oriented to person and place "hospital", ff commands anicteric no rales regular rhythm abdomen soft, nontender left LE- starting to have left lateral flexion contracture lower leg- dry scab lateral aspect left hip now with 3.9 x 6.8 yellow slough area just below is the dry eschar 9.5 x 4.5 - now dry coccyx - stage 2 decubitus extremities no edema Procedures 07/15/16 left hip aspiration Urinary Catheter: Yes Arrieta insert reason: Prolonged Immobilization A/P Problem List: (1) Atrial fibrillation with RVR ICD Code: I48.91 Status: Acute (2) Sepsis ICD Code: A41.9 Status: Acute (3) Thrombus of left atrial appendage without antecedent myocardial infarction ICD Code: I51.3 Status: Acute (4) HTN (hypertension) ICD Code: I10 Status: Chronic (5) Type 2 diabetes mellitus ICD Code: E11.9 Status: Chronic (6) Hypocalcemia ICD Code: E83.51 Status: Resolved (7) Hypomagnesemia ICD Code: E83.42 Status: Acute (8) Hypokalemia ICD Code: E87.6 Status: Resolved (9) Chronic systolic CHF (congestive heart failure) ICD Code: I50.22 Status: Chronic (10) Fracture of left hip requiring operative repair ICD Code: S72.002A Status: Acute (11) Hx of coronary artery disease ICD Code: Z86.79 Status: Chronic (12) C. difficile colitis ICD Code: A04.7 Status: Acute Assessment and Plan 76 years old male Atrial fibrillation with RVR- rate better controlled.- now in SR on exam Continue oral Cardizem CD 120 mg daily, metoprolol. Digoxin on hold. Plavix on hold. Heparin discontinued by cardiology. Left atrial thrombus: Appreciate cardiology recommendations. Likely secondary to [place] in the past. Heparin discontinued by cardiology. Sepsis secondary to C. difficile: Continue IV Flagyl, oral vancomycin for highly virulent strain of C. difficile. ff BMP. ID ff Chronic systolic congestive heart failure with mild exacerbation: Exacerbation has resolved. Lasix on hold. Ejection fraction 40% on echocardiogram. Continue beta anthony. Hypertension: Norvasc on hold. Continue metoprolol. Left hip MRSA wound and right lateral heel cellulitis: Appreciate orthopedic surgery recommendations. on IV vancomycin. ID ff. Another area just below above with open wound Left LE lateral aspect of lower leg- dry scab- no signs of infection seen by Plastics with wound care recommendations- appreciated 07/30 Anemia: Stable. Left hip fracture status post ORIF in May 2016. Appreciate orthopedic surgery recommendations. Continue physical therapy. Poor oral intake: Continue pureed diet. Peripheral vascular disease: Status post lower extremity bypass. Dementia: Continue supportive care. Diabetes mellitus: Monitor Accu-Cheks and cover with sliding scale insulin. Hypomagnesemia: improve. [id number] 400 mg po bid Hypokalemia: Continue to supplement potassium. ,. KCL 20 meq po daily Hypocalcemia: Supplement calcium. GI prophylaxis: Pepcid. DVT prophylaxis: Heparin. Chest pain: Resolved. Problem Qualifiers (1) Type 2 diabetes mellitus: Qualified Code: E11.51 - Type 2 diabetes mellitus with diabetic peripheral angiopathy without gangrene, without long-term current use of insulin David Arriaza MD Jul 31, 2016 09:14
[2016-07-31 09:20] LABS: BICARBONATE 26.4 MEQ/L (21.0-32.0)
[2016-07-31 09:22] LABS: MAGNESIUM 1.5 MG/DL (1.5-2.5)
[2016-07-31] MEDS: SODIUM HYPOCHLORITE 0.25% 500 ML BTL TOPICAL SCH (09:22)
[2016-07-31] MEDS: ZINC OXIDE 20% OINT 30 GM TUBE TOPICAL SCH (09:22)
[2016-07-31] MEDS: ACETAMINOPHEN/HYDROcodone 325 MG/5 MG TAB PO PRN (09:57)
[2016-07-31] MEDS: MAGNESIUM OXIDE 400 MG TAB G-TUBE SCH ×2 (12:42→23:00)
[2016-07-31] MEDS: VANCOMYCIN 1,000 MG/NS 250 ML IV SCH ×2 (12:52)
[2016-08-01] VITALS (9 sets, daily range): BP systolic 110–129; BP diastolic 59–89; PULSE 58–90; RESP 18–20; TEMP 97.5–98.9; O2SAT 97–99
[2016-08-01] MEDS: metroNIDAZOLE 500 MG INJ 100 ML IV SCH ×3 (02:08→17:22)
[2016-08-01] MEDS: CHLORHEXIDINE GLUCONATE 2 % 1 PACK (2 CLOTHS) TOP SCH (04:00)
[2016-08-01] MEDS: NS + KCL 20 MEQ INJ 1,000 ML IV SCH (05:30)
[2016-08-01] MEDS: INSULIN ASPART SUPPLEMENTAL SCALE SQ SCH ×4 (05:31→21:00)
[2016-08-01] MEDS: SODIUM CHLORIDE 0.9% FLUSH 5 ML FLUSH IV FLUSH SCH ×2 (09:00→21:58)
[2016-08-01] MEDS: NYSTATIN SUSP 500,000 U/5 ML CUP SWISH-SWAL SCH ×4 (09:17→21:58)
[2016-08-01] MEDS: VANCOMYCIN 500 MG VIAL (FOR ORAL USE ONLY) PO SCH ×4 (09:17→21:58)
[2016-08-01] MEDS: MAGNESIUM OXIDE 400 MG TAB G-TUBE SCH ×2 (09:18→21:58)
[2016-08-01] MEDS: DILTIAZEM-CD 120 MG CAP ER PO SCH (09:18)
[2016-08-01] MEDS: POTASSIUM CHLORIDE 20 MEQ CONTROLLED RELEASE TAB PO SCH (09:18)
[2016-08-01] MEDS: ATORVASTATIN 20 MG TAB PO SCH (09:18)
[2016-08-01] MEDS: CALCIUM/VITAMIN D 250 MG/125 U TAB PO SCH (09:18)
[2016-08-01] MEDS: METOPROLOL TARTRATE 25 MG TAB PO SCH ×2 (09:18→21:58)
[2016-08-01] MEDS: FAMOTIDINE 20 MG TAB PO SCH ×2 (09:18→21:58)
[2016-08-01] MEDS: NICOTINE 7 MG/24 HR PATCH TD SCH (09:18)
[2016-08-01] MEDS: ACETAMINOPHEN/HYDROcodone 325 MG/5 MG TAB PO PRN (09:19)
[2016-08-01] MEDS: SODIUM HYPOCHLORITE 0.25% 500 ML BTL TOPICAL SCH (09:59)
[2016-08-01] MEDS: COLLAGENASE OINT 30 GM TUBE TOP SCH (09:59)
[2016-08-01] MEDS: ZINC OXIDE 20% OINT 30 GM TUBE TOPICAL SCH (09:59)
[2016-08-01] MEDS: POVIDONE IODINE 10% OINT 30 GM TUBE TOPICAL SCH (09:59)
[2016-08-01 10:05] LABS: HEMATOCRIT 27.6 % (39.0-51.0); MEAN CELL VOLUME 90.8 FL (80.0-100.0); MEAN CORPUSCULAR HEMOGLOBIN 28.8 PG (27.0-34.0); MEAN CORPUSCULAR HGB CONC 31.7 % (32.0-36.0); PLATELET COUNT 523 TH/MM3 (150-450); RED BLOOD COUNT 3.03 MIL/MM3 (4.50-5.90); RED CELL DISTRIBUTION WIDTH 19.3 % (11.6-17.2); REVIEW FLAG FINAL; WHITE BLOOD COUNT 13.3 TH/MM3 (4.0-11.0)
--- NOTE | 2016-08-01 10:45 | HHI.PR ---
Subjective Remarks minimal pain good po no diarrhea Objective Vitals Vital Signs Date Time Temp Pulse Resp B/P Pulse Ox O2 Delivery O2 Flow Rate FiO2 08/01/16 10:40 68 08/01/16 08:22 98.0 70 18 125/61 98 08/01/16 04:39 97.5 66 18 110/89 97 08/01/16 00:30 98.9 73 18 120/59 99 07/31/16 20:00 Nasal Cannula 2.00 07/31/16 20:00 75 07/31/16 20:00 97.9 77 20 114/53 99 07/31/16 16:32 97.8 66 20 134/60 99 07/31/16 12:09 97.5 78 20 139/62 99 07/31/16 11:37 Nasal Cannula 2.00 I/O 07/31/16 07/31/16 07/31/16 08/01/16 08/01/16 08/01/16 07:00 15:00 23:00 07:00 15:00 23:00 Intake Total 120 ml 480 ml 2350 ml 572 ml Output Total 600 ml 650 ml 500 ml 600 ml Balance -480 ml -170 ml 1850 ml -28 ml Intake Oral 120 ml 480 ml 600 ml 240 ml IV Total 1750 ml 332 ml Output Urine Total 600 ml 650 ml 500 ml 600 ml # Bowel Movements 1 0 0 Result Diagram: 08/01/16 0935 07/31/16 0705 Imaging Last Impressions Hip Aspiration/Injection 07/15/16 0000 Signed Impressions: Service Date/Time: July 15:55 - CONCLUSION: Uncomplicated aspiration as above. Aniceto Vasquez MD Chest X-Ray 07/12/161957 Signed Impressions: Service Date/Time: Tuesday, July 12, 2016 20:23 - CONCLUSION: 1. Postoperative CABG. Remote granulomatous disease. No effusion or pneumothorax. Tony Galloway MD Pelvis X-Ray 07/12/16 0000 Signed Impressions: Service Date/Time: Tuesday, July 12, 2016 20:17 - CONCLUSION: 1. Postoperative left total hip replacement. Osteopenia. No acute bony abnormalities. Tnoy Galloway MD Objective Remarks awake and alert, oriented to person and place , ff commands anicteric no rales regular rhythm abdomen soft, nontender left LE- flexion contracture directedy medially lower leg- dry scab lateral aspect left hip - 3.9 x 6.8 yellow slough area dry eschar 9.5 x 4.5 - dry coccyx - stage 2 decubitus extremities no edema Procedures 07/15/16 left hip aspiration A/P Problem List: (1) Atrial fibrillation with RVR ICD Code: I48.91 Status: Acute (2) Sepsis ICD Code: A41.9 Status: Acute (3) Thrombus of left atrial appendage without antecedent myocardial infarction ICD Code: I51.3 Status: Acute (4) HTN (hypertension) ICD Code: I10 Status: Chronic (5) Type 2 diabetes mellitus ICD Code: E11.9 Status: Chronic (6) Hypocalcemia ICD Code: E83.51 Status: Resolved (7) Hypomagnesemia ICD Code: E83.42 Status: Acute (8) Hypokalemia ICD Code: E87.6 Status: Resolved (9) Chronic systolic CHF (congestive heart failure) ICD Code: I50.22 Status: Chronic (10) Fracture of left hip requiring operative repair ICD Code: S72.002A Status: Acute (11) Hx of coronary artery disease ICD Code: Z86.79 Status: Chronic (12) C. difficile colitis ICD Code: A04.7 Status: Acute Assessment and Plan 76 years old male Atrial fibrillation with RVR- rate better controlled.- now in SR on exam no chest pains Continue oral Cardizem CD 120 mg daily, metoprolol. Digoxin on hold. Plavix on hold. Heparin discontinued by cardiology. Left atrial thrombus: Appreciate cardiology recommendations. Likely secondary to [place] in the past. Heparin discontinued by cardiology. Sepsis secondary to C. difficile: Continue IV Flagyl, oral vancomycin for highly virulent strain of C. difficile. ff BMP. ID ff Chronic systolic congestive heart failure with mild exacerbation: Exacerbation has resolved. Lasix on hold. Ejection fraction 40% on echocardiogram. Continue beta anthony. Hypertension: Norvasc on hold. Continue metoprolol. Left hip MRSA wound and right lateral heel cellulitis: Appreciate orthopedic surgery recommendations. on IV vancomycin. ID ff. Another area just below above with open wound Left LE lateral aspect of lower leg- dry scab- no signs of infection seen by Plastics with wound care recommendations- appreciated 07/30 Anemia: Stable. Left hip fracture status post ORIF in May 2016. Appreciate orthopedic surgery recommendations. Continue physical therapy. Poor oral intake: Continue pureed diet. Peripheral vascular disease: Status post lower extremity bypass. Dementia: Continue supportive care. Diabetes mellitus: Monitor Accu-Cheks and cover with sliding scale insulin. Hypomagnesemia: improve. [id number] 400 mg po bid Hypokalemia: Continue to supplement potassium. ,. KCL 20 meq po daily Hypocalcemia: Supplement calcium. GI prophylaxis: Pepcid. DVT prophylaxis: Heparin. Problem Qualifiers (1) Type 2 diabetes mellitus: Qualified Code: E11.51 - Type 2 diabetes mellitus with diabetic peripheral angiopathy without gangrene, without long-term current use of insulin David Arriaza MD Aug 01, 2016 10:45
[2016-08-01] MEDS: VANCOMYCIN 1,000 MG/NS 250 ML IV SCH ×2 (15:27)
[2016-08-01] MEDS: MORPHINE SULFATE 4 MG/ML INJ IV PRN (18:59)
[2016-08-02] VITALS (9 sets, daily range): BP systolic 126–154; BP diastolic 56–75; PULSE 69–92; RESP 16–22; TEMP 97.1–98.6; O2SAT 97–99
[2016-08-02] MEDS: metroNIDAZOLE 500 MG INJ 100 ML IV SCH ×2 (02:10→09:55)
[2016-08-02] MEDS: MORPHINE SULFATE 4 MG/ML INJ IV PRN (02:15)
[2016-08-02] MEDS: CHLORHEXIDINE GLUCONATE 2 % 1 PACK (2 CLOTHS) TOP SCH (04:00)
[2016-08-02] MEDS: NS + KCL 20 MEQ INJ 1,000 ML IV SCH (05:55)
[2016-08-02] MEDS: INSULIN ASPART SUPPLEMENTAL SCALE SQ SCH ×4 (06:14→20:28)
[2016-08-02] MEDS: COLLAGENASE OINT 30 GM TUBE TOP SCH (09:00)
[2016-08-02] MEDS: POVIDONE IODINE 10% OINT 30 GM TUBE TOPICAL SCH (09:00)
[2016-08-02] MEDS: SODIUM HYPOCHLORITE 0.25% 500 ML BTL TOPICAL SCH (09:00)
[2016-08-02] MEDS: ZINC OXIDE 20% OINT 30 GM TUBE TOPICAL SCH (09:00)
[2016-08-02] MEDS: SODIUM CHLORIDE 0.9% FLUSH 5 ML FLUSH IV FLUSH SCH ×2 (09:00→20:27)
[2016-08-02] MEDS: METOPROLOL TARTRATE 25 MG TAB PO SCH ×2 (09:54→20:27)
[2016-08-02] MEDS: DILTIAZEM-CD 120 MG CAP ER PO SCH (09:54)
[2016-08-02] MEDS: CALCIUM/VITAMIN D 250 MG/125 U TAB PO SCH (09:54)
[2016-08-02] MEDS: VANCOMYCIN 500 MG VIAL (FOR ORAL USE ONLY) PO SCH ×4 (09:54→20:27)
[2016-08-02] MEDS: POTASSIUM CHLORIDE 20 MEQ CONTROLLED RELEASE TAB PO SCH (09:54)
[2016-08-02] MEDS: ATORVASTATIN 20 MG TAB PO SCH (09:54)
[2016-08-02] MEDS: NYSTATIN SUSP 500,000 U/5 ML CUP SWISH-SWAL SCH ×4 (09:54→20:27)
[2016-08-02] MEDS: MAGNESIUM OXIDE 400 MG TAB G-TUBE SCH ×2 (09:54→20:27)
[2016-08-02] MEDS: NICOTINE 7 MG/24 HR PATCH TD SCH (09:54)
[2016-08-02] MEDS: FAMOTIDINE 20 MG TAB PO SCH ×2 (09:54→20:27)
--- NOTE | 2016-08-02 10:29 | HHI.PR ---
Subjective Remarks awake and alert no reported loose stools pain when extremities examined and when range of motion done for assessment Objective Vitals Vital Signs Date Time Temp Pulse Resp B/P Pulse Ox O2 Delivery O2 Flow Rate FiO2 08/02/16 08:00 Nasal Cannula 2.00 08/02/16 04:00 98.4 77 17 154/56 99 08/02/16 02:20 18 08/02/16 00:00 98.6 86 18 137/75 98 08/01/16 20:00 98 Nasal Cannula 2.00 08/01/16 20:00 97.8 90 19 129/62 98 08/01/16 19:59 78 08/01/16 18:39 Nasal Cannula 2.00 08/01/16 16:14 98.1 58 20 117/64 99 08/01/16 15:06 97 Nasal Cannula 2.00 08/01/16 12:04 98.0 60 18 126/60 98 08/01/16 10:40 68 I/O 08/01/16 08/01/16 08/01/16 08/02/16 08/02/16 08/02/16 07:00 15:00 23:00 07:00 15:00 23:00 Intake Total 572 ml 600 ml 0 ml 80 ml Output Total 600 ml 800 ml 150 ml 200 ml Balance -28 ml -200 ml -150 ml -120 ml Intake Oral 240 ml 600 ml 0 ml 80 ml IV Total 332 ml Output Urine Total 600 ml 800 ml 150 ml 200 ml # Bowel Movements 0 0 Result Diagram: 08/01/16 0935 08/02/16 0757 Imaging Last Impressions Hip Aspiration/Injection 07/15/16 0000 Signed Impressions: Service Date/Time: July 15:55 - CONCLUSION: Uncomplicated aspiration as above. Aniceto Vasquez MD Chest X-Ray 07/12/161957 Signed Impressions: Service Date/Time: Tuesday, July 12, 2016 20:23 - CONCLUSION: 1. Postoperative CABG. Remote granulomatous disease. No effusion or pneumothorax. Tony Galloway MD Pelvis X-Ray 07/12/16 0000 Signed Impressions: Service Date/Time: Tuesday, July 12, 2016 20:17 - CONCLUSION: 1. Postoperative left total hip replacement. Osteopenia. No acute bony abnormalities. Tony Galloway MD Objective Remarks awake and alert, oriented to person and place , ff commands anicteric no rales regular rhythm abdomen soft, nontender left LE- flexion contracture toward the middle lower leg- dry scab lateral aspect left hip - 3.9 x 6.8 yellow slough area, dry eschar dry eschar 9.5 x 4.5 - dry right lower extremity starting to get stiff and slightly flexed coccyx - stage 2 decubitus extremities no edema Procedures 07/15/16 left hip aspiration Urinary Catheter: Yes Assessment to: Continue Arrieta insert reason: Prolonged Immobilization A/P Problem List: (1) Atrial fibrillation with RVR ICD Code: I48.91 Status: Acute (2) Sepsis ICD Code: A41.9 Status: Acute (3) Thrombus of left atrial appendage without antecedent myocardial infarction ICD Code: I51.3 Status: Acute (4) HTN (hypertension) ICD Code: I10 Status: Chronic (5) Type 2 diabetes mellitus ICD Code: E11.9 Status: Chronic (6) Hypocalcemia ICD Code: E83.51 Status: Resolved (7) Hypomagnesemia ICD Code: E83.42 Status: Acute (8) Hypokalemia ICD Code: E87.6 Status: Resolved (9) Chronic systolic CHF (congestive heart failure) ICD Code: I50.22 Status: Chronic (10) Fracture of left hip requiring operative repair ICD Code: S72.002A Status: Acute (11) Hx of coronary artery disease ICD Code: Z86.79 Status: Chronic (12) C. difficile colitis ICD Code: A04.7 Status: Acute Assessment and Plan 76 years old male Atrial fibrillation with RVR- rate better controlled.- now in SR on exam no chest pains Continue oral Cardizem CD 120 mg daily, metoprolol. Digoxin on hold. Plavix on hold. Heparin discontinued by cardiology. Left atrial thrombus: Appreciate cardiology recommendations. Likely secondary to [place] in the past. Heparin discontinued by cardiology. Sepsis secondary to C. difficile: Continue IV Flagyl, oral vancomycin for highly virulent strain of C. difficile. ff BMP. ID ff Chronic systolic congestive heart failure with mild exacerbation: Exacerbation has resolved. Lasix on hold. Ejection fraction 40% on echocardiogram. Continue beta anthony. Hypertension: Norvasc on hold. Continue metoprolol. Left hip MRSA wound and right lateral heel cellulitis: Appreciate orthopedic surgery recommendations. on IV vancomycin. ID ff seen by Plastics with wound care recommendations- appreciated 07/30 Anemia: Stable. Left hip fracture status post ORIF in May 2016. Appreciate orthopedic surgery recommendations. right LE- starting knee flexion contracture Continue physical therapy. Consult orthotech Poor oral intake: Continue pureed diet. Peripheral vascular disease: Status post lower extremity bypass. Dementia: Continue supportive care. Diabetes mellitus: Monitor Accu-Cheks and cover with sliding scale insulin. Hypomagnesemia: improve. [id number] 400 mg po bid Hypokalemia: Continue to supplement potassium. ,. KCL 20 meq po daily Hypocalcemia: Supplement calcium. GI prophylaxis: Pepcid. DVT prophylaxis: Heparin. Problem Qualifiers (1) Type 2 diabetes mellitus: Qualified Code: E11.51 - Type 2 diabetes mellitus with diabetic peripheral angiopathy without gangrene, without long-term current use of insulin David Arriaza MD Aug 02, 2016 10:29
--- NOTE | 2016-08-02 11:48 | HHI.IDPN ---
Note Infectious Disease Note Patient is comfortable and calm. No complaints. one stool small amount. Afebrile. ANTIBIOTICS: Vancomycin IV. Flagyl IV Vanco PO. OBJECTIVE: Vital Signs Date Time Temp Pulse Resp B/P Pulse Ox O2 Delivery O2 Flow Rate FiO2 08/02/16 10:37 98 Nasal Cannula 2.00 08/02/16 08:00 Nasal Cannula 2.00 08/02/16 04:00 98.4 77 17 154/56 99 08/02/16 02:20 18 08/02/16 00:00 98.6 86 18 137/75 98 08/01/16 20:00 98 Nasal Cannula 2.00 08/01/16 20:00 97.8 90 19 129/62 98 08/01/16 19:59 78 08/01/16 18:39 Nasal Cannula 2.00 08/01/16 16:14 98.1 58 20 117/64 99 08/01/16 15:06 97 Nasal Cannula 2.00 08/01/16 12:04 98.0 60 18 126/60 98 08/01/16 08/01/16 08/02/16 15:00 23:00 07:00 Intake Total 600 ml 0 ml 80 ml Output Total 800 ml 150 ml 200 ml Balance -200 ml -150 ml -120 ml Intake Oral 600 ml 0 ml 80 ml Output Urine Total 800 ml 150 ml 200 ml # Bowel Movements 0 Laboratory Tests Test 08/01/16 09:35 White Blood Count 13.3 TH/MM3 Red Blood Count 3.03 MIL/MM3 Hemoglobin 8.7 GM/DL Hematocrit 27.6 % Mean Corpuscular Volume 90.8 FL Mean Corpuscular Hemoglobin 28.8 PG Mean Corpuscular Hemoglobin 31.7 % Concent Red Cell Distribution Width 19.3 % Platelet Count 523 TH/MM3 Mean Platelet Volume 8.5 FL Laboratory Tests Test 08/02/16 07:57 Creatinine 0.80 MG/DL Estimat Glomerular Filtration 94 ML/MIN Rate GENERAL: No acute distress. HEENT: PERRL. EOMI, No icterus. NECK: Supple, no adenopathy. LUNGS: Clear CARDIAC: Regular rate and rhythm. ABDOMEN: (+) BS, Soft, non tender. MUSCULOSKELETAL: R. hip wound without drainage. Dry necrotic eschar x 2, one over the hip incision. Looks stable. Decreased surrounding erythema. No drainage. : Scrotal edema decreased. EXTREMITIES: No CCE. Skin tear and excoriated lesions at extremities same. SKIN: No rash. ASSESSMENT: R. hip wound infection - MRSA. Post R. hip arthroplasty. C. diff colitis. Repeat stool c. diff. Leukocytosis - Persisting. PLAN. Continue Vancomycin IV until 08/28/16 Stop Flagyl IV. Continue Vancomycin PO for c. diff. until 08/07. Pablo Draper MD Aug 02, 2016 11:48
[2016-08-02] MEDS: VANCOMYCIN 1,000 MG/NS 250 ML IV SCH ×2 (13:50)
[2016-08-03] VITALS (7 sets, daily range): BP systolic 129–148; BP diastolic 61–67; PULSE 75–79; RESP 12–20; TEMP 97.4–98; O2SAT 94–100
[2016-08-03] MEDS: CHLORHEXIDINE GLUCONATE 2 % 1 PACK (2 CLOTHS) TOP SCH (04:00)
[2016-08-03] MEDS: NS + KCL 20 MEQ INJ 1,000 ML IV SCH (05:44)
[2016-08-03] MEDS: INSULIN ASPART SUPPLEMENTAL SCALE SQ SCH ×4 (06:23→22:30)
[2016-08-03 06:36] LABS: C. DIFF EPI 027 PRESUMPTIVE NEGATIVE (NEGATIVE); C. DIFF TOXIN PCR NEGATIVE (NEGATIVE)
--- NOTE | 2016-08-03 08:13 | PD.ORT.PN ---
Subjective Subjective Remarks 76yo male s/p left bipolar arthroplasty for femoral neck fracture. His procedure was originally delayed several weeks secondary to renal issues and aspiration pneumonia. Pt. d/c'd to rehab but sent home after ins. coverage . Rest of hx not clear. Pt readmitted recently with diabetic ulcer, generalized decline in health and decubiti including operative site. He has not had out patient f/u. Unclear as to functional status as he has dementia and no family available. Pt laying in bed, pleasantly confused. History unreliable from patient. No other complaints noted. Objective Vitals Vital Signs Date Time Temp Pulse Resp B/P Pulse Ox O2 Delivery O2 Flow Rate FiO2 08/03/16 04:47 97.7 77 16 148/67 96 08/02/16 23:40 97.7 69 16 148/64 98 08/02/16 20:18 98.0 76 16 142/65 98 08/02/16 20:00 Nasal Cannula 2.00 08/02/16 16:00 97.1 92 22 146/62 98 08/02/16 12:00 97.3 80 22 126/60 99 08/02/16 10:37 98 Nasal Cannula 2.00 08/02/16 09:00 74 I/O 08/02/16 08/02/16 08/02/16 08/03/16 08/03/16 08/03/16 07:00 15:00 23:00 07:00 15:00 23:00 Intake Total 80 ml 1902 ml 0 ml 0 ml Output Total 200 ml 500 ml 900 ml 650 ml Balance -120 ml 1402 ml -900 ml -650 ml Intake Oral 80 ml 120 ml 0 ml 0 ml IV Total 1782 ml Output Urine Total 200 ml 500 ml 900 ml 650 ml # Bowel Movements 0 1 Result Diagram: 08/01/16 0935 08/02/16 0757 Imaging Last 48 hours Impressions Hip Aspiration/Injection 07/15/16 0000 Signed Impressions: Service Date/Time: July 15:55 - CONCLUSION: Uncomplicated aspiration as above. Aniceto Vasquez MD X-ray pelvis 07/12- post operative changes, no fx or dislocation. There is periacetabular osteopenia similar in appearance to immediate post op view Last 72 hours Impressions Chest X-Ray 07/12/161957 Signed Impressions: Service Date/Time: Tuesday, July 12, 2016 20:23 - CONCLUSION: 1. Postoperative CABG. Remote granulomatous disease. No effusion or pneumothorax. Tony Galloway MD Objective Remarks LLE: Pt awake, alert, pleasantly confused. He holds his hip flexed at 100 deg. Pain with any attempt at ROM. No erythema or induration. Area of blistering around proximal aspect of incision. No calf swelling or palpable tenderness. Neuro unreliable. No brace on at this time. Healing scabbing wounds noted around knee and gilman area. Assessment & Plan Problem List: (1) Fracture of left hip requiring operative repair (2) PVD (peripheral vascular disease) (3) Non healing left heel wound (4) Type 2 diabetes mellitus (5) Renal insufficiency (6) Diabetic foot infection (7) Sepsis associated hypotension (8) Hx of coronary artery disease (9) HTN (hypertension) Assessment and Plan It appears patient is not compliant with course of physical therapy and bracing. Conversation was had with Dr Arriaza and Dr Campuzano about possible traction for left hip, course of treatment not recommended from orthopedic standpoint as it would have a high likelihood of failure due to patient related compliance issues. Recommendations are to proceed forward with left hip manipulation/aspiration/injection this afternoon under light sedation in the OR by Dr Campuzano. Consent orders have been put in. Procedure has been explained to patient and care team. Consent will most likely be signed by . NPO status. Appreciate medical teams involvement in patient's care. Mary Ellen Pike Aug 03, 2016 08:13
[2016-08-03] MEDS: POVIDONE IODINE 10% OINT 30 GM TUBE TOPICAL SCH (09:00)
[2016-08-03] MEDS: SODIUM CHLORIDE 0.9% FLUSH 5 ML FLUSH IV FLUSH SCH (09:00)
[2016-08-03] MEDS: NYSTATIN SUSP 500,000 U/5 ML CUP SWISH-SWAL SCH ×4 (09:51→21:00)
[2016-08-03] MEDS: FAMOTIDINE 20 MG TAB PO SCH ×2 (09:52→21:00)
[2016-08-03] MEDS: DILTIAZEM-CD 120 MG CAP ER PO SCH (09:52)
[2016-08-03] MEDS: ATORVASTATIN 20 MG TAB PO SCH (09:52)
[2016-08-03] MEDS: POTASSIUM CHLORIDE 20 MEQ CONTROLLED RELEASE TAB PO SCH (09:52)
[2016-08-03] MEDS: MAGNESIUM OXIDE 400 MG TAB G-TUBE SCH ×2 (09:52→21:00)
[2016-08-03] MEDS: CALCIUM/VITAMIN D 250 MG/125 U TAB PO SCH (09:53)
[2016-08-03] MEDS: VANCOMYCIN 500 MG VIAL (FOR ORAL USE ONLY) PO SCH ×4 (09:53→21:00)
[2016-08-03] MEDS: METOPROLOL TARTRATE 25 MG TAB PO SCH ×2 (09:53→21:00)
[2016-08-03] MEDS ORDERED: ONDANSETRON HCL 4 MG/2 ML VIAL IV PUSH ONE (10:03)
[2016-08-03] MEDS ORDERED: PROPOFOL 200 MG/20 ML AMP IV ONE (10:03)
[2016-08-03] MEDS ORDERED: NEOSTIGMINE 3 MG/3 ML SYR IV ONE (10:03)
[2016-08-03] MEDS ORDERED: PHENYLEPH/NS 1000 MCG/10 ML SYR IV ONE (10:03)
[2016-08-03] MEDS ORDERED: ePHEDrine/NS 25 MG/5 ML SYR IV ONE (10:03)
[2016-08-03] MEDS: NICOTINE 7 MG/24 HR PATCH TD SCH (10:19)
[2016-08-03] MEDS: COLLAGENASE OINT 30 GM TUBE TOP SCH (10:20)
[2016-08-03] MEDS: ZINC OXIDE 20% OINT 30 GM TUBE TOPICAL SCH (10:21)
[2016-08-03] MEDS: SODIUM HYPOCHLORITE 0.25% 500 ML BTL TOPICAL SCH (10:21)
--- NOTE | 2016-08-03 11:28 | HHI.PR ---
Subjective Remarks no complains, pleasant Objective Vitals Vital Signs Date Time Temp Pulse Resp B/P Pulse Ox O2 Delivery O2 Flow Rate FiO2 08/03/16 08:00 98.0 78 12 129/66 100 08/03/16 04:47 97.7 77 16 148/67 96 08/02/16 23:40 97.7 69 16 148/64 98 08/02/16 20:18 98.0 76 16 142/65 98 08/02/16 20:00 Nasal Cannula 2.00 08/02/16 16:00 97.1 92 22 146/62 98 08/02/16 12:00 97.3 80 22 126/60 99 I/O 08/02/16 08/02/16 08/02/16 08/03/16 08/03/16 08/03/16 07:00 15:00 23:00 07:00 15:00 23:00 Intake Total 80 ml 1902 ml 0 ml 0 ml Output Total 200 ml 500 ml 900 ml 650 ml Balance -120 ml 1402 ml -900 ml -650 ml Intake Oral 80 ml 120 ml 0 ml 0 ml IV Total 1782 ml Output Urine Total 200 ml 500 ml 900 ml 650 ml # Bowel Movements 0 1 Result Diagram: 08/01/16 0935 08/02/16 0757 Imaging Last Impressions Hip Aspiration/Injection 07/15/16 0000 Signed Impressions: Service Date/Time: July 15:55 - CONCLUSION: Uncomplicated aspiration as above. Aniceto Vasquez MD Chest X-Ray 07/12/161957 Signed Impressions: Service Date/Time: Tuesday, July 12, 2016 20:23 - CONCLUSION: 1. Postoperative CABG. Remote granulomatous disease. No effusion or pneumothorax. Tony Galloway MD Pelvis X-Ray 07/12/16 0000 Signed Impressions: Service Date/Time: Tuesday, July 12, 2016 20:17 - CONCLUSION: 1. Postoperative left total hip replacement. Osteopenia. No acute bony abnormalities. Tony Galloway MD Objective Remarks awake and alert, oriented to person and place , ff commands anicteric no rales regular rhythm abdomen soft, nontender left LE- flexion contracture directedy medially lower leg- dry scab lateral aspect left hip - 3.9 x 6.8 yellow slough area dry eschar 9.5 x 4.5 - dry coccyx - stage 2 decubitus dry scabs on both UE, left knee extremities no edema Procedures 07/15/16 left hip aspiration A/P Assessment and Plan 76 years old male Sepsis secondary to C. difficile: Continue IV Flagyl, oral vancomycin for highly virulent strain of C. difficile. ff BMP. ID ff Left hip MRSA wound and right lateral heel cellulitis: Appreciate orthopedic surgery recommendations. on IV vancomycin. ID ff seen by Plastics with wound care recommendations- appreciated 07/30 Left hip fracture status post ORIF in May 2016. Appreciate orthopedic surgery recommendations. starting knee flexion contracture Continue physical therapy. Ortho- taking him to OR today 08/03- to attempt hip manipulation under sedation Atrial fibrillation with RVR- rate better controlled.- now in SR on exam no chest pains Continue oral Cardizem CD 120 mg daily, metoprolol. Digoxin on hold. Plavix on hold. Heparin discontinued by cardiology. Left atrial thrombus: Appreciate cardiology recommendations. Likely secondary to [place] in the past. Heparin discontinued by cardiology. Chronic systolic congestive heart failure with mild exacerbation: Exacerbation has resolved. Lasix on hold. Ejection fraction 40% on echocardiogram. Continue beta anthony. Hypertension: Norvasc on hold. Continue metoprolol. Anemia: Stable. Poor oral intake: Continue pureed diet. Peripheral vascular disease: Status post lower extremity bypass. Dementia: Continue supportive care. Diabetes mellitus: Monitor Accu-Cheks and cover with sliding scale insulin. Hypomagnesemia: improve. [id number] 400 mg po bid Hypokalemia: Continue to supplement potassium. ,. KCL 20 meq po daily Hypocalcemia: Supplement calcium. GI prophylaxis: Pepcid. DVT prophylaxis: Heparin. Dry scabs- both UE/LE- wound care team consult David Arriaza MD Aug 03, 2016 11:28 highly virulent strain of C. difficile. ff BMP. ID ff Left hip MRSA wound and right lateral heel cellulitis: Appreciate orthopedic surgery recommendations. on IV vancomycin. ID ff seen by Plastics with wound care recommendations- appreciated 07/30 Left hip fracture status post ORIF in May 2016. Appreciate orthopedic surgery recommendations. Right LE- starting knee flexion contracture Continue physical therapy. Ortho- taking him to OR today 08/03 Atrial fibrillation with RVR- rate better controlled.- now in SR on exam no chest pains Continue oral Cardizem CD 120 mg daily, metoprolol. Digoxin on hold. Plavix on hold. Heparin discontinued by cardiology. Left atrial thrombus: Appreciate cardiology recommendations. Likely secondary to [place] in the past. Heparin discontinued by cardiology. Chronic systolic congestive heart failure with mild exacerbation: Exacerbation has resolved. Lasix on hold. Ejection fraction 40% on echocardiogram. Continue beta anthony. Hypertension: Norvasc on hold. Continue metoprolol. Anemia: Stable. Poor oral intake: Continue pureed diet. Peripheral vascular disease: Status post lower extremity bypass. Dementia: Continue supportive care. Diabetes mellitus: Monitor Accu-Cheks and cover with sliding scale insulin. Hypomagnesemia: improve. [id number] 400 mg po bid Hypokalemia: Continue to supplement potassium. ,. KCL 20 meq po daily Hypocalcemia: Supplement calcium. GI prophylaxis: Pepcid. DVT prophylaxis: Heparin. Dry scabs- both UE/LE- wound care team consult Problem Qualifiers (1) Type 2 diabetes mellitus: Qualified Code: E11.51 - Type 2 diabetes mellitus with diabetic peripheral angiopathy without gangrene, without long-term current use of insulin David Arriaza MD Aug 03, 2016 11:28
[2016-08-03] MEDS ORDERED: PHARMACY ORDERED LAB XX ONE (13:45)
[2016-08-03] MEDS: VANCOMYCIN 1,000 MG/NS 250 ML IV SCH ×2 (14:30)
[2016-08-03] MEDS ORDERED: LIDOCAINE HCL 1% PF 10 ML VIAL ONE (18:49)
[2016-08-03] MEDS ORDERED: TRIAMCINOLONE ACETONIDE 40 MG/ML VIAL ONE (18:50)
[2016-08-03] MEDS ORDERED: HYDROmorphone HCL PF 2 MG/ML VIAL ONE (19:04)
[2016-08-03] MEDS ORDERED: ACETAMINOPHEN 1000 MG/100 ML VIAL IV ONE (19:05)
--- NOTE | 2016-08-03 20:27 | RADRPT ---
EXAM DATE/TIME: 08/03/2016 20:06 [facility] COMPARISON: No previous studies available for comparison. INDICATIONS : Left hip manipulation in the operating room. MEDICAL HISTORY : Hypertension. CAD, Dementia SURGICAL HISTORY : CABG. Left hip replacement ENCOUNTER: Subsequent ACUITY: 3 weeks PAIN SCORE: Non-responsive. LOCATION: Left pelvis FINDINGS: Single anterior view in the operating room shows inferiorly and probably anteriorly dislocated left b ipolar hip arthroplasty. No fracture seen. CONCLUSION: Dislocated bipolar hip arthroplasty. No perceptible fracture. Thor Donahue MD on August 03, 2016 at 20:25 Board Certified Radiologist. This report was verified electronically.
[2016-08-03] MEDS ORDERED: GENTAMICIN SULFATE 80 MG/2 ML VIAL ONE (20:52)
[2016-08-03 22:01] LABS: POTASSIUM 3.9 MEQ/L (3.5-5.1)
[2016-08-03] MEDS: LACTATED RINGER'S 1000 ML INJ 1,000 ML IV SCH (22:01)
--- NOTE | 2016-08-03 22:01 | PD.OP ---
cc: Luke Campuzano MD Operative Report Date of Surgery: Aug 03, 2016 Preoperative Diagnosis: (1) History of arthroplasty of left hip (2) Sepsis affecting skin (3) Contracture of left hip Postoperative Diagnosis: (1) Dislocation of internal left hip prosthesis (2) Left hip prosthetic joint infection (3) Contracture of left hip (4) Sepsis affecting skin Procedure: Left hip resection arthroplasty Anesthesia: Gen. Surgeon: Luke Campuzano [place] Lifeguard(s): Mary Ellen Pike PA-C ([place]) The surgical procedure was assisted by my physician's vector control assistant. Her presence was necessary throughout the case for manipulation and positioning of the surgical extremity. My PA was assisting me throughout the duration of this procedure. The skill set of the physician vector control assistant was medically necessary to complete this procedure. During the surgical case the surgical coordinator was working at the back table and the physician vector control assistant was directly assisting me. Operation and Findings: Indications: 76yo male known to me sp left bipolar arthroplasty for femoral neck fracture. His procedure was delayed several weeks secondary to renal issues and aspiration pneumonia. Pt. d/c'd to rehab but sent home after ins. coverage . Pt readmitted with diabetic ulcer, generalized decline in health and decubiti including operaive site. He has not had OP f/u. He developed sepsis associate was C. difficile and his decubiti grew MRSA. There has been difficulty with positioning for hygiene secondary to his hip contracture. Initial x-rays revealed the bipolar cup to be well seated in the acetabulum. An aspiration was completed which revealed no organisms. Because of persistent difficulty with positioning and patient intolerance of movement he is taken to surgery for evaluation under anesthesia and possible manipulation. Procedure and findings: The patient was taken to the operative suite and after undergoing an adequate level of general anesthesia was noted to have his diaper and posterior dressings saturated with feces. This was cleaned and he was placed on the Ervin table. Examination revealed the hip to have a flexion contracture and abduction contracture. Fluoroscopic evaluation revealed a dislocated prosthesis. A gentle manipulation was attempted however the bipolar cup dissociated from the femoral stem. The was contacted by phone and consent obtained for resection arthroplasty based upon the patient's generalized poor health, nonambulatory status and probability of a septic joint. He was then placed into the lateral decubitus position. The left lower extremity was then prepped and draped in usual sterile fashion with Betadine. The patient is noted to have 2 large areas of eschar one at the proximal incision line and one posterior to it on the buttock. There is also a sacral decubitus and multiple decubiti involving the distal extremities bilaterally. The previous incision was utilized. This was carried down to skin and subcutaneous tense tissue with a knife. The ulceration at the incision line was noted to have deep penetration with necrotic soft tissue. This was excised sharply. The muscular fascia was incised and split longitudinally. Copious amounts of blood tinged fluid was evacuated. It was cultured. The bipolar cup which was free-floating was removed. All necrotic tissue was excised sharply. Soft tissue was removed from the floor of the acetabulum. The proximal aspect of the stem was exposed. The extraction device was then applied and the stem easily removed. The wound was thoroughly irrigated with antibiotic irrigant with pulse lavage. The decubitus at the incision line was completely excised. A Hemovac drain was left in place. Incision was closed in layers utilizing #1 Vicryl suture on the muscular fascia, 0 Vicryl suture on the deep tissue, 2-0 Vicryl suture and the subcutaneous tense tissue and 2-0 nylon on the skin. There was noted to be improvement with regards to the range of motion of the hip. This should improve positioning for wound care and hygiene. The posterior ulceration was debrided free of eschar. Sterile dressings were applied, the patient was placed into an abduction pillow, transferred to the hospital bed and taken to the recovery room in stable condition. Estimated blood loss: 200 cc Complications: Dissociation of the bipolar cup from the stem prior to the arthrotomy Luke Campuzano MD Aug 03, 2016 22:01
[2016-08-03] MEDS ORDERED: SODIUM CHLORIDE 0.9% FLUSH 5 ML FLUSH IVF PRN (22:15)
[2016-08-03] MEDS ORDERED: Post-op Orders (for Pharmacy) MISC XX ONE (22:15)
[2016-08-03] MEDS ORDERED: POVIDONE IODINE 10% SOLN 118 ML BOTTLE TOPICAL PRN (22:15)
[2016-08-04] VITALS (12 sets, daily range): BP systolic 102–141; BP diastolic 53–82; PULSE 72–95; RESP 16–21; TEMP 97.5–98.6; O2SAT 95–98
[2016-08-04] MEDS: CHLORHEXIDINE GLUCONATE 2 % 1 PACK (2 CLOTHS) TOP SCH (04:00)
[2016-08-04] MEDS: INSULIN ASPART SUPPLEMENTAL SCALE SQ SCH ×4 (06:22→20:51)
--- NOTE | 2016-08-04 06:34 | PD.ORT.PN ---
Subjective Post Op Day #: 1 Subjective Remarks The patient is awake. Pt. awake, confused. No reported problems. Appears comfortable Objective Vitals Vital Signs Date Time Temp Pulse Resp B/P Pulse Ox O2 Delivery O2 Flow Rate FiO2 08/04/16 04:00 97.5 90 18 118/56 98 08/04/16 02:36 Nasal Cannula 2.00 08/04/16 00:00 97.8 83 18 102/58 95 08/03/16 23:30 97.8 89 17 117/63 100 Nasal Cannula 4 08/03/16 23:15 91 14 123/58 100 08/03/16 23:00 88 14 121/56 100 Nasal Cannula 4 08/03/16 22:45 90 14 112/55 100 08/03/16 22:30 97.6 83 12 113/55 99 Nasal Cannula 4 08/03/16 19:04 79 08/03/16 16:02 77 08/03/16 16:00 97.8 76 20 146/65 94 08/03/16 12:00 97.4 75 16 132/61 97 08/03/16 11:50 96 Nasal Cannula 08/03/16 08:00 98.0 78 12 129/66 100 08/03/16 08:00 Nasal Cannula 2.00 I/O 08/03/16 08/03/16 08/03/16 08/04/16 08/04/16 08/04/16 07:00 15:00 23:00 07:00 15:00 23:00 Intake Total 0 ml 1500 ml Output Total 650 ml 400 ml 150 ml 450 ml Balance -650 ml -400 ml 1350 ml -450 ml Intake Oral 0 ml Other 1500 ml Output Urine Total 650 ml 400 ml 450 ml Estimated Blood Loss 150 ml # Bowel Movements 1 1 Result Diagram: 08/01/16 0935 08/03/16 1903 Other Results 08/04/16 labs pending Imaging Last 48 hours Impressions Hip X-Ray 08/03/16 0000 Signed Impressions: Service Date/Time: Wednesday, August 03, 2016 20:06 - CONCLUSION: Dislocated bipolar hip arthroplasty. No perceptible fracture. Thor Donahue MD Last 48 hours Impressions Hip Aspiration/Injection 07/15/16 0000 Signed Impressions: Service Date/Time: July 15:55 - CONCLUSION: Uncomplicated aspiration as above. Aniceto Vasquez MD X-ray pelvis 07/12- post operative changes, no fx or dislocation. There is periacetabular osteopenia similar in appearance to immediate post op view Last 72 hours Impressions Chest X-Ray 07/12/161957 Signed Impressions: Service Date/Time: Tuesday, July 12, 2016 20:23 - CONCLUSION: 1. Postoperative CABG. Remote granulomatous disease. No effusion or pneumothorax. Tony Galloway MD Procedures Left hip resection arthroplasty 08/03/16 Objective Remarks LLE: Pt awake, alert, pleasantly confused. Dressing dry. Abduction pillow intact. Drain with minimal serous output. Neuro stable. Assessment & Plan Problem List: (1) Left hip prosthetic joint infection (2) Dislocation of internal left hip prosthesis (3) Sepsis (4) PVD (peripheral vascular disease) (5) Non healing left heel wound (6) Type 2 diabetes mellitus Assessment and Plan Ortho status stable POD #1. Continue abduction pillow while in bed. May remove it as needed for hygeine, dressing changes and OOB activity. NO hip precautions , may position as needed. Progress OOB activity if medically able. D/C planning. Luke Campuzano MD Aug 04, 2016 06:34
[2016-08-04 07:34] LABS: HEMATOCRIT 22.6 % (39.0-51.0); MEAN CELL VOLUME 90.8 FL (80.0-100.0); MEAN CORPUSCULAR HEMOGLOBIN 29.2 PG (27.0-34.0); MEAN CORPUSCULAR HGB CONC 32.1 % (32.0-36.0); PLATELET COUNT 463 TH/MM3 (150-450); RED BLOOD COUNT 2.49 MIL/MM3 (4.50-5.90); RED CELL DISTRIBUTION WIDTH 18.5 % (11.6-17.2); REVIEW FLAG FINAL; WHITE BLOOD COUNT 17.4 TH/MM3 (4.0-11.0)
[2016-08-04] MEDS: CALCIUM/VITAMIN D 250 MG/125 U TAB PO SCH (09:22)
[2016-08-04] MEDS: NICOTINE 7 MG/24 HR PATCH TD SCH (09:22)
[2016-08-04] MEDS: POTASSIUM CHLORIDE 20 MEQ CONTROLLED RELEASE TAB PO SCH (09:24)
[2016-08-04] MEDS: ATORVASTATIN 20 MG TAB PO SCH (09:24)
[2016-08-04] MEDS: MAGNESIUM OXIDE 400 MG TAB G-TUBE SCH ×2 (09:24→20:50)
[2016-08-04] MEDS: NYSTATIN SUSP 500,000 U/5 ML CUP SWISH-SWAL SCH ×4 (09:25→20:50)
[2016-08-04] MEDS: VANCOMYCIN 500 MG VIAL (FOR ORAL USE ONLY) PO SCH ×4 (09:26→20:50)
[2016-08-04] MEDS: DILTIAZEM-CD 120 MG CAP ER PO SCH (09:26)
[2016-08-04] MEDS: METOPROLOL TARTRATE 25 MG TAB PO SCH ×2 (09:26→20:50)
[2016-08-04] MEDS: FAMOTIDINE 20 MG TAB PO SCH ×2 (09:27→20:50)
[2016-08-04] MEDS: SODIUM CHLORIDE 0.9% FLUSH 5 ML FLUSH IVF SCH ×2 (09:27→20:50)
[2016-08-04] MEDS: COLLAGENASE OINT 30 GM TUBE TOP SCH (09:28)
[2016-08-04] MEDS: SODIUM HYPOCHLORITE 0.25% 500 ML BTL TOPICAL SCH (09:29)
[2016-08-04] MEDS: ZINC OXIDE 20% OINT 30 GM TUBE TOPICAL SCH (09:29)
[2016-08-04] MEDS: POVIDONE IODINE 10% OINT 30 GM TUBE TOPICAL SCH (09:29)
[2016-08-04] MEDS: LACTATED RINGER'S 1000 ML INJ 1,000 ML IV SCH (10:18)
[2016-08-04] MEDS ORDERED: PHARMACY ORDERED LAB XX ONE (13:45)
[2016-08-04] MEDS: VANCOMYCIN 1,000 MG/NS 250 ML IV SCH ×2 (14:03)
--- NOTE | 2016-08-04 19:30 | HHI.PR ---
Subjective Remarks Patient seen today around 2 PM. Lying in bed. Denies any pain. Disoriented. Pleasant. Objective Vital Signs Date Time Temp Pulse Resp B/P Pulse Ox O2 Delivery O2 Flow Rate FiO2 08/04/16 16:00 98.2 95 18 137/64 96 08/04/16 12:08 98.6 72 16 109/53 98 08/04/16 11:26 98.6 72 21 109/53 98 08/04/16 10:07 97 Nasal Cannula 2.00 08/04/16 08:31 97.9 86 18 124/82 98 08/04/16 08:06 97.5 87 16 124/58 98 08/04/16 04:00 97.5 90 18 118/56 98 08/04/16 02:36 Nasal Cannula 2.00 08/04/16 00:00 97.8 83 18 102/58 95 08/03/16 23:30 97.8 89 17 117/63 100 Nasal Cannula 4 08/03/16 23:15 91 14 123/58 100 08/03/16 23:00 88 14 121/56 100 Nasal Cannula 4 08/03/16 22:45 90 14 112/55 100 08/03/16 22:30 97.6 83 12 113/55 99 Nasal Cannula 4 I/O 08/03/16 08/03/16 08/03/16 08/04/16 08/04/16 08/04/16 07:00 15:00 23:00 07:00 15:00 23:00 Intake Total 0 ml 1500 ml 600 ml 120 ml Output Total 650 ml 400 ml 150 ml 660 ml 300 ml Balance -650 ml -400 ml 1350 ml -60 ml -180 ml Intake Oral 0 ml 0 ml 120 ml IV Total 600 ml Other 1500 ml Output Urine Total 650 ml 400 ml 650 ml 300 ml Drainage Total 10 ml Estimated Blood Loss 150 ml # Bowel Movements 1 1 0 0 Result Diagram: 08/04/16 0652 08/03/16 1903 Imaging Last Impressions Hip X-Ray 08/03/16 0000 Signed Impressions: Service Date/Time: Wednesday, August 03, 2016 20:06 - CONCLUSION: Dislocated bipolar hip arthroplasty. No perceptible fracture. Thor Donahue MD Hip Aspiration/Injection 07/15/16 0000 Signed Impressions: Service Date/Time: July 15:55 - CONCLUSION: Uncomplicated aspiration as above. Aniceto Vasquez MD Chest X-Ray 07/12/16 195 Signed Impressions: Service Date/Time: Tuesday, July 12, 2016 20:23 - CONCLUSION: 1. Postoperative CABG. Remote granulomatous disease. No effusion or pneumothorax. Tony Galloway MD Pelvis X-Ray 07/12/16 0000 Signed Impressions: Service Date/Time: Tuesday, July 12, 2016 20:17 - CONCLUSION: 1. Postoperative left total hip replacement. Osteopenia. No acute bony abnormalities. Tony Galloway MD Procedures 07/15/16left hip aspiration 08/03/16 left hip arthroplasty removal Objective Remarks GENERAL: Patient sitting up in bed. Awake and alert. Oriented to person and place. Disoriented to year, month. Follows commands. SKIN: Warm and dry. HEAD: Normocephalic. EYES: No scleral icterus. No injection or drainage. NECK: Supple, trachea midline. No JVD or lymphadenopathy. CARDIOVASCULAR: Regular rate and rhythm without murmurs, gallops, or rubs. RESPIRATORY: Breath sounds equal bilaterally. No accessory muscle use. GASTROINTESTINAL: Abdomen soft, non-tender, nondistended. MUSCULOSKELETAL: No cyanosis, or edema. Left leg with dry scabs. Left hip postoperative with drainage. BACK: Nontender without obvious deformity. No CVA tenderness. A/P Assessment and Plan 76 years old male //Sepsis secondary to C. difficile: Continue IV Flagyl, oral vancomycin for highly virulent strain of C. difficile. ff BMP. ID ff //Left hip MRSA wound and right lateral heel cellulitis: Appreciate orthopedic surgery recommendations. on IV vancomycin. ID ff seen by Plastics with wound care recommendations- -Status post removal of left hip arthroplasty 08/03. Appreciate surgical assistance. //Left hip fracture status post ORIF in May 2016. Appreciate orthopedic surgery recommendations. starting knee flexion contracture Continue physical therapy. -Status post removal of left hip arthroplasty 08/03. Appreciate surgical assistance. //Atrial fibrillation with RVR- rate better controlled.- now in SR on exam no chest pains Continue oral Cardizem CD 120 mg daily, metoprolol. Digoxin on hold. Plavix on hold. Heparin discontinued by cardiology. //Left atrial thrombus: Appreciate cardiology recommendations. Likely secondary to [place] in the past. Heparin discontinued by cardiology. //Chronic systolic congestive heart failure with mild exacerbation: Exacerbation has resolved. Lasix on hold. Ejection fraction 40% on echocardiogram. Continue beta anthony. Hypertension: Norvasc on hold. Continue metoprolol. //Anemia: Repeat hemoglobin. //Poor oral intake: Continue pureed diet. //Peripheral vascular disease: Status post lower extremity bypass. //Dementia: Continue supportive care. //Diabetes mellitus: Monitor Accu-Cheks and cover with sliding scale insulin. //Hypomagnesemia: improved. [id number] 400 mg po bid //Hypokalemia: Continue to supplement potassium. ,. KCL 20 meq po daily //Hypocalcemia: Supplement calcium. //GI prophylaxis: Pepcid. //Dry scabs- both UE/LE- wound care team consult //DVT prophylaxis: As per surgical service. Bulmaro Mendoza MD Aug 04, 2016 19:30
[2016-08-05] VITALS (8 sets, daily range): BP systolic 130–141; BP diastolic 59–74; PULSE 55–90; RESP 16–19; TEMP 97.5–98.4; O2SAT 95–98
[2016-08-05] MEDS: LACTATED RINGER'S 1000 ML INJ 1,000 ML IV SCH ×3 (00:25→23:07)
[2016-08-05] MEDS: CHLORHEXIDINE GLUCONATE 2 % 1 PACK (2 CLOTHS) TOP SCH (04:00)
[2016-08-05] MEDS: INSULIN ASPART SUPPLEMENTAL SCALE SQ SCH ×4 (06:26→21:00)
--- NOTE | 2016-08-05 07:22 | PD.ORT.PN ---
Subjective Post Op Day #: 2 Subjective Remarks The patient is awake. Pt. awake, confused. No reported problems. Currently being attended to by nursing staff for soiled diaper. Objective Vitals Vital Signs Date Time Temp Pulse Resp B/P Pulse Ox O2 Delivery O2 Flow Rate FiO2 08/05/16 04:13 97.9 88 16 130/59 97 08/04/16 23:15 89 08/04/16 23:00 98.2 79 16 141/65 95 08/04/16 20:50 Nasal Cannula 2.00 08/04/16 19:40 98.4 82 16 130/63 96 08/04/16 16:00 98.2 95 18 137/64 96 08/04/16 12:08 98.6 72 16 109/53 98 08/04/16 11:26 98.6 72 21 109/53 98 08/04/16 10:07 97 Nasal Cannula 2.00 08/04/16 08:31 97.9 86 18 124/82 98 08/04/16 08:06 97.5 87 16 124/58 98 08/04/16 08:00 86 08/04/16 08:00 96 Nasal Cannula 2.00 21 I/O 08/04/16 08/04/16 08/04/16 08/05/16 08/05/16 08/05/16 07:00 15:00 23:00 07:00 15:00 23:00 Intake Total 600 ml 120 ml 0 ml 0 ml Output Total 660 ml 300 ml 100 ml 250 ml Balance -60 ml -180 ml -100 ml -250 ml Intake Oral 0 ml 120 ml 0 ml 0 ml IV Total 600 ml Output Urine Total 650 ml 300 ml 100 ml 250 ml Drainage Total 10 ml # Bowel Movements 0 0 0 0 Result Diagram: 08/04/16 0652 08/03/16 1903 Other Results Microbiology Date/Time Procedure Status Source Growth 08/03/16 21:05 Gram Stain - Final Resulted Fluid Synovial Fluid 08/03/16 21:05 Body Fluid Culture - Preliminary Resulted Fluid Synovial Fluid NO GROWTH IN 24 HOURS. 08/03/16 21:05 Fungal Smear - Final Resulted Fluid Synovial Fluid NO FUNGAL ELEMENTS SEEN. 08/03/16 21:05 Fungal Culture Resulted Fluid Synovial Fluid Pending 08/03/16 21:05 Acid Fast Stain Received Fluid Synovial Fluid Pending 08/03/16 21:05 Mycobacterial Culture Received Fluid Synovial Fluid Pending Imaging Last 48 hours Impressions Hip X-Ray 08/03/16 0000 Signed Impressions: Service Date/Time: Wednesday, August 03, 2016 20:06 - CONCLUSION: Dislocated bipolar hip arthroplasty. No perceptible fracture. Thor Donahue MD Last 48 hours Impressions Hip Aspiration/Injection 07/15/16 0000 Signed Impressions: Service Date/Time: July 15:55 - CONCLUSION: Uncomplicated aspiration as above. Aniceto Vasquez MD X-ray pelvis 07/12- post operative changes, no fx or dislocation. There is periacetabular osteopenia similar in appearance to immediate post op view Last 72 hours Impressions Chest X-Ray 07/12/161957 Signed Impressions: Service Date/Time: Tuesday, July 12, 2016 20:23 - CONCLUSION: 1. Postoperative CABG. Remote granulomatous disease. No effusion or pneumothorax. Tony Galloway MD Procedures Left hip resection arthroplasty 08/03/16 Objective Remarks LLE: Pt awake, alert, pleasantly confused. Dressing dry. Minimal swelling. Abduction pillow intact. Drain with minimal output. Exam limited by the current nursing care. Assessment & Plan Problem List: (1) Left hip prosthetic joint infection (2) Dislocation of internal left hip prosthesis (3) Sepsis (4) PVD (peripheral vascular disease) (5) Non healing left heel wound (6) Type 2 diabetes mellitus Assessment and Plan Ortho status stable POD #2. Continue abduction pillow while in bed. May remove it as needed for hygeine, dressing changes and OOB activity. NO hip precautions , may position as needed. Progress OOB activity if medically able. D/C planning. Begin dressing changes left hip. Wound care to evaluate and continue management of left hip incision/ulceration. Luke Campuzano MD Aug 05, 2016 07:22
[2016-08-05] MEDS: NICOTINE 7 MG/24 HR PATCH TD SCH (08:26)
[2016-08-05] MEDS: CALCIUM/VITAMIN D 250 MG/125 U TAB PO SCH (08:27)
[2016-08-05] MEDS: NYSTATIN SUSP 500,000 U/5 ML CUP SWISH-SWAL SCH ×4 (08:27→22:44)
[2016-08-05] MEDS: MAGNESIUM OXIDE 400 MG TAB G-TUBE SCH ×2 (08:27→22:43)
[2016-08-05] MEDS: POTASSIUM CHLORIDE 20 MEQ CONTROLLED RELEASE TAB PO SCH (08:27)
[2016-08-05] MEDS: ATORVASTATIN 20 MG TAB PO SCH (08:27)
[2016-08-05] MEDS: DILTIAZEM-CD 120 MG CAP ER PO SCH (08:27)
[2016-08-05] MEDS: FAMOTIDINE 20 MG TAB PO SCH ×2 (08:27→22:42)
[2016-08-05] MEDS: VANCOMYCIN 500 MG VIAL (FOR ORAL USE ONLY) PO SCH ×4 (08:27→22:43)
[2016-08-05] MEDS: METOPROLOL TARTRATE 25 MG TAB PO SCH ×2 (08:27→22:43)
[2016-08-05] MEDS: ZINC OXIDE 20% OINT 30 GM TUBE TOPICAL SCH (08:29)
[2016-08-05] MEDS: SODIUM HYPOCHLORITE 0.25% 500 ML BTL TOPICAL SCH (08:29)
[2016-08-05] MEDS: COLLAGENASE OINT 30 GM TUBE TOP SCH (08:30)
[2016-08-05] MEDS: POVIDONE IODINE 10% OINT 30 GM TUBE TOPICAL SCH (08:31)
[2016-08-05] MEDS: SODIUM CHLORIDE 0.9% FLUSH 5 ML FLUSH IVF SCH ×2 (08:32→22:43)
[2016-08-05] MEDS: ACETAMINOPHEN/HYDROcodone 325 MG/5 MG TAB PO PRN (12:01)
[2016-08-05] MEDS: VANCOMYCIN 1,000 MG/NS 250 ML IV SCH ×2 (13:50)
[2016-08-05] MEDS: CEFEPIME INJ 2,000 MG in SODIUM CHLORIDE 0.9% INJ 100 ML IV SCH ×2 (15:38→23:03)
[2016-08-05 15:40] LABS: AUTOMATED NEUTROPHIL # 12.2 TH/MM3 (1.8-7.7); BASOPHIL % 0.1 % (0.0-2.0); HEMATOCRIT 22.4 % (39.0-51.0); HEMO FLAGS DIFF FINAL; LYMPH % 6.5 % (9.0-44.0); LYMPHOCYTE # 0.9 TH/MM3 (1.0-4.8); MEAN CELL VOLUME 90.4 FL (80.0-100.0); MEAN CORPUSCULAR HGB CONC 32.1 % (32.0-36.0); MONO % 7.9 % (0.0-8.0); NEUT % 85.5 % (16.0-70.0); PLATELET COUNT 486 TH/MM3 (150-450); RED BLOOD COUNT 2.48 MIL/MM3 (4.50-5.90); RED CELL DISTRIBUTION WIDTH 18.2 % (11.6-17.2); WHITE BLOOD COUNT 14.2 TH/MM3 (4.0-11.0)
[2016-08-05] MEDS: DRONABINOL 2.5 MG CAP PO SCH (16:00)
[2016-08-05 16:35] LABS: BICARBONATE 25.3 MEQ/L (21.0-32.0); POTASSIUM 4.2 MEQ/L (3.5-5.1)
--- NOTE | 2016-08-05 19:39 | HHI.PR ---
Subjective Remarks patient seen today around 1 PM. No acute events per nursing. Nursing reports poor by mouth intake takewhich has continued throughout hospitalization. Patient denies any pain. Pleasant.last bowel movement 08/04 Objective Vital Signs Date Time Temp Pulse Resp B/P Pulse Ox O2 Delivery O2 Flow Rate FiO2 08/05/16 16:00 98.4 78 18 141/66 95 08/05/16 12:07 98.0 90 18 134/70 96 08/05/16 08:08 98.3 90 18 136/74 96 08/05/16 04:13 97.9 88 16 130/59 97 08/04/16 23:15 89 08/04/16 23:00 98.2 79 16 141/65 95 08/04/16 20:50 Nasal Cannula 2.00 08/04/16 19:40 98.4 82 16 130/63 96 I/O 08/04/16 08/04/16 08/04/16 08/05/16 08/05/16 08/05/16 06:59 14:59 22:59 06:59 14:59 22:59 Intake Total 600 ml 120 ml 0 ml 2501 ml 120 ml Output Total 660 ml 300 ml 100 ml 250 ml 470 ml Balance -60 ml -180 ml -100 ml 2251 ml -350 ml Intake Oral 0 ml 120 ml 0 ml 0 ml 120 ml IV Total 600 ml 2501 ml Output Urine Total 650 ml 300 ml 100 ml 250 ml 400 ml Drainage Total 10 ml 70 ml # Bowel Movements 0 0 0 0 0 Result Diagram: 08/05/16 1428 08/05/16 1428 Procedures 07/15/16left hip aspiration 08/03/16 left hip arthroplasty removal Objective Remarks GENERAL: Patient sitting up in bed. Awake and alert. Oriented to person and place. Disoriented to year, month. Follows commands.no acute changes on exam. SKIN: Warm and dry. HEAD: Normocephalic. EYES: No scleral icterus. No injection or drainage. NECK: Supple, trachea midline. No JVD or lymphadenopathy. CARDIOVASCULAR: Regular rate and rhythm without murmurs, gallops, or rubs. RESPIRATORY: Breath sounds equal bilaterally. No accessory muscle use. GASTROINTESTINAL: Abdomen soft, non-tender, nondistended. MUSCULOSKELETAL: No cyanosis, or edema. Left leg with dry scabs. Left hip postoperative with drain removed. Dressing clean dry and intact. BACK: Nontender without obvious deformity. No CVA tenderness. A/P Assessment and Plan === 08/05/16 -08/05. Hemoglobin roughly stable at 7.2 postoperatively. Continue to monitor. -08/05 Consult dietary for calorie count. Stop nicotine patch Add Marinol for appetite stimulation. postoperative anemia stable from yesterday. Continue to monitor 76 years old male //Sepsis secondary to C. difficile: Continue IV Flagyl, oral vancomycin for highly virulent strain of C. difficile. ff BMP. ID ff //Left hip MRSA wound and right lateral heel cellulitis: Appreciate orthopedic surgery recommendations. on IV vancomycin. ID ff seen by Plastics with wound care recommendations- -Status post removal of left hip arthroplasty 08/03. Appreciate surgical assistance. //Left hip fracture status post ORIF in May 2016. Appreciate orthopedic surgery recommendations. starting knee flexion contracture Continue physical therapy. -Status post removal of left hip arthroplasty 08/03. Appreciate surgical assistance. //Atrial fibrillation with RVR- rate better controlled.- now in SR on exam no chest pains Continue oral Cardizem CD 120 mg daily, metoprolol. Digoxin on hold. Plavix on hold. Heparin discontinued by cardiology. //Left atrial thrombus: Appreciate cardiology recommendations. Likely secondary to DE in the past. Heparin discontinued by cardiology. //Chronic systolic congestive heart failure with mild exacerbation: Exacerbation has resolved. Lasix on hold. Ejection fraction 40% on echocardiogram. Continue beta anthony. Hypertension: Norvasc on hold. Continue metoprolol. //Anemia: -Postoperative on chronic. -08/05. Hemoglobin roughly stable at 7.2 postoperatively. Continue to monitor. //Poor oral intake: -08/05 Consult dietary for calorie count. Stop nicotine patch Add Marinol for appetite stimulation. //Peripheral vascular disease: Status post lower extremity bypass. //Dementia: Continue supportive care. //Diabetes mellitus: Monitor Accu-Cheks and cover with sliding scale insulin. //Hypomagnesemia: improved. Ca0pxgd 400 mg po bid //Hypokalemia: Continue to supplement potassium. ,. KCL 20 meq po daily //Hypocalcemia: Supplement calcium. //GI prophylaxis: Pepcid. Bulmaro Mendoza MD Aug 05, 2016 19:39
--- NOTE | 2016-08-05 22:47 | HHI.IDPN ---
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 Vital Signs Date Time Temp Pulse Resp B/P Pulse Ox O2 Delivery O2 Flow Rate FiO2 08/05/16 20:00 97.5 55 19 136/64 95 08/05/16 16:00 98.4 78 18 141/66 95 08/05/16 12:07 98.0 90 18 134/70 96 08/05/16 08:08 98.3 90 18 136/74 96 08/05/16 08:00 96 Nasal Cannula 2.00 21 08/05/16 08:00 76 08/05/16 04:13 97.9 88 16 130/59 97 08/04/16 23:15 89 08/04/16 23:00 98.2 79 16 141/65 95 08/04/16 08/04/16 08/05/16 15:00 23:00 07:00 Intake Total 120 ml 0 ml 2501 ml Output Total 300 ml 100 ml 250 ml Balance -180 ml -100 ml 2251 ml Intake Oral 120 ml 0 ml 0 ml IV Total 2501 ml Output Urine Total 300 ml 100 ml 250 ml # Bowel Movements 0 0 0 . Laboratory Tests Test 08/04/16 08/05/16 06:52 14:28 White Blood Count 17.4 TH/MM3 14.2 TH/MM3 Red Blood Count 2.49 MIL/MM3 2.48 MIL/MM3 Hemoglobin 7.3 GM/DL 7.2 GM/DL Hematocrit 22.6 % 22.4 % Mean Corpuscular Volume 90.8 FL 90.4 FL Mean Corpuscular Hemoglobin 29.2 PG 29.0 PG Mean Corpuscular Hemoglobin 32.1 % 32.1 % Concent Red Cell Distribution Width 18.5 % 18.2 % Platelet Count 463 TH/MM3 486 TH/MM3 Mean Platelet Volume 8.3 FL 8.4 FL Neutrophils (%) (Auto) 85.5 % Lymphocytes (%) (Auto) 6.5 % Monocytes (%) (Auto) 7.9 % Eosinophils (%) (Auto) 0.0 % Basophils (%) (Auto) 0.1 % Neutrophils # (Auto) 12.2 TH/MM3 Lymphocytes # (Auto) 0.9 TH/MM3 Monocytes # (Auto) 1.1 TH/MM3 Eosinophils # (Auto) 0.0 TH/MM3 Basophils # (Auto) 0.0 TH/MM3 CBC Comment DIFF FINAL Differential Comment Laboratory Tests Test 08/05/16 14:28 Sodium Level 144 MEQ/L Potassium Level 4.2 MEQ/L Chloride Level 111 MEQ/L Carbon Dioxide Level 25.3 MEQ/L Anion Gap 8 MEQ/L Blood Urea Nitrogen 9 MG/DL Creatinine 0.78 MG/DL Estimat Glomerular Filtration 97 ML/MIN Rate Random Glucose 97 MG/DL Calcium Level 7.9 MG/DL Phosphorus Level 2.7 MG/DL Magnesium Level 1.7 MG/DL Albumin 1.6 GM/DL Microbiology Date/Time Procedure Status Source Growth 08/03/16 21:05 Gram Stain - Final Resulted Fluid Synovial Fluid 08/03/16 21:05 Body Fluid Culture - Preliminary Resulted Gram Negative Melo 08/03/16 21:05 Acid Fast Stain - Final Resulted Fluid Synovial Fluid NO ACID FAST BACILLI SEEN 08/03/16 21:05 Mycobacterial Culture Resulted Fluid Synovial Fluid Pending 08/03/16 21:05 Fungal Smear - Final Resulted Fluid Synovial Fluid NO FUNGAL ELEMENTS SEEN. 08/03/16 21:05 Fungal Culture Resulted Fluid Synovial Fluid Pending Imaging Last Impressions Hip X-Ray 08/03/16 0000 Signed Impressions: Service Date/Time: Wednesday, August 03, 2016 20:06 - CONCLUSION: Dislocated bipolar hip arthroplasty. No perceptible fracture. Thor Donahue MD Hip Aspiration/Injection 07/15/16 0000 Signed Impressions: Service Date/Time: July 15:55 - CONCLUSION: Uncomplicated aspiration as above. Aniceto Vasquez MD Chest X-Ray 07/12/161957 Signed Impressions: Service Date/Time: Tuesday, July 12, 2016 20:23 - CONCLUSION: 1. Postoperative CABG. Remote granulomatous disease. No effusion or pneumothorax. Tony Galloway MD Pelvis X-Ray 07/12/16 0000 Signed Impressions: Service Date/Time: Tuesday, July 12, 2016 20:17 - CONCLUSION: 1. Postoperative left total hip replacement. Osteopenia. No acute bony abnormalities. Tony Galloway MD Physical Exam GENERAL: No acute distress. HEENT: PERRL. EOMI, No icterus. NECK: Supple, no adenopathy. LUNGS: Clear CARDIAC: Regular rate and rhythm. ABDOMEN: (+) BS, Soft, non tender. MUSCULOSKELETAL: R. hip wound without drainage. Dry necrotic eschar x 2, one over the hip incision. Looks stable. Decreased surrounding erythema. No drainage. : Scrotal edema present EXTREMITIES: No CCE. Skin tear and excoriated lesions at extremities same. Edema, drainage arounf L hip incision Dressing in place SKIN: No rash. Assessment & Plan Remarks ASSESSMENT: R. hip wound infection - MRSA. Post R. hip arthroplasty. New issue - pt is growing a GNR C. diff colitis. Leukocytosis - Persisting. PLAN. Continue Vancomycin IV until 08/28/16 Continue Vancomycin PO for c. diff. until 08/07. Start cefepime for GNR prosthetic hip infx fu clx further rec's to follow Zelda Dobson MD Aug 05, 2016 22:47
[2016-08-05] MEDS: MORPHINE SULFATE 4 MG/ML INJ IV PRN (23:04)
[2016-08-06] VITALS (7 sets, daily range): BP systolic 108–138; BP diastolic 56–65; PULSE 65–90; RESP 20; TEMP 97.5–98.2; O2SAT 89–98
[2016-08-06] MEDS: CHLORHEXIDINE GLUCONATE 2 % 1 PACK (2 CLOTHS) TOP SCH (04:00)
[2016-08-06] MEDS: INSULIN ASPART SUPPLEMENTAL SCALE SQ SCH ×4 (06:13→21:00)
--- NOTE | 2016-08-06 07:55 | PD.ORT.PN ---
Subjective Post Op Day #: 3 Subjective Remarks 76yo male s/p left bipolar arthroplasty for femoral neck fracture, s/p bipolar hip resection. His original procedure was delayed several weeks secondary to renal issues and aspiration pneumonia. Pt. d/c'd to rehab but sent home after ins. coverage . Rest of hx not clear. Pt readmitted recently with diabetic ulcer, generalized decline in health and decubiti including operative site. He has not had out patient f/u. Unclear as to functional status as he has dementia and no family available. Due to continued flexion contracture with failed conservative treatment including aggressive rehabilitation, bracing, joint aspiration under IR guidance and manipulation under anesthesia patient recently underwent a bipolar hip resection. See operative note for details. Pt is tolerating very procedure well. Admits to controlled left hip pain. Left hip is no longer in flexion contracture. Pt laying in bed, pleasantly confused. History unreliable from patient. No other complaints noted. Objective Vitals Vital Signs Date Time Temp Pulse Resp B/P Pulse Ox O2 Delivery O2 Flow Rate FiO2 08/05/16 23:45 98 Nasal Cannula 2.00 08/05/16 21:21 75 08/05/16 21:00 Nasal Cannula 2.00 08/05/16 20:00 97.5 55 19 136/64 95 08/05/16 16:00 98.4 78 18 141/66 95 08/05/16 12:07 98.0 90 18 134/70 96 08/05/16 08:08 98.3 90 18 136/74 96 08/05/16 08:00 96 Nasal Cannula 2.00 21 08/05/16 08:00 76 I/O 08/05/16 08/05/16 08/05/16 08/06/16 08/06/16 08/06/16 07:00 15:00 23:00 07:00 15:00 23:00 Intake Total 2501 ml 120 ml 90 ml Output Total 250 ml 470 ml 200 ml Balance 2251 ml -350 ml -110 ml Intake Oral 0 ml 120 ml 90 ml IV Total 2501 ml Output Urine Total 250 ml 400 ml 200 ml Drainage Total 70 ml # Bowel Movements 0 0 0 Result Diagram: 08/05/16 1428 08/05/16 1428 Imaging Last Impressions Hip X-Ray 08/03/16 0000 Signed Impressions: Service Date/Time: Shayna, August 03, 2016 20:06 - CONCLUSION: Dislocated bipolar hip arthroplasty. No perceptible fracture. Thor oDnahue MD Hip Aspiration/Injection 07/15/16 0000 Signed Impressions: Service Date/Time: July 15:55 - CONCLUSION: Uncomplicated aspiration as above. Aniceto Vasquez MD Chest X-Ray 07/12/161957 Signed Impressions: Service Date/Time: Tuesday, July 12, 2016 20:23 - CONCLUSION: 1. Postoperative CABG. Remote granulomatous disease. No effusion or pneumothorax. Tony Galloway MD Pelvis X-Ray 07/12/16 0000 Signed Impressions: Service Date/Time: Tuesday, July 12, 2016 20:17 - CONCLUSION: 1. Postoperative left total hip replacement. Osteopenia. No acute bony abnormalities. Tony Galloway MD Procedures Left hip resection arthroplasty 08/03/16 Objective Remarks LLE: Pt awake, alert, pleasantly confused. Dressing dry. Minimal swelling. Abduction pillow intact. Drain removed Exam limited by the current nursing care. Assessment & Plan Ortho Post Op Day #: 3 Problem List: (1) Left hip prosthetic joint infection (2) Dislocation of internal left hip prosthesis (3) Sepsis (4) PVD (peripheral vascular disease) (5) Non healing left heel wound (6) Type 2 diabetes mellitus Assessment and Plan Ortho status stable POD #3. Continue abduction pillow while in bed. May remove it as needed for hygeine, dressing changes and OOB activity. NO hip precautions , may position as needed. Progress OOB activity if medically able. D/C planning. Continue dressing changes left hip. Wound care to evaluate and continue management of left hip incision/ulceration. Continue wet to dry dressings over debridement of left hip and dress sutured area with alcohol/ xeroform/4x4. Mary Ellen Pike Aug 06, 2016 07:55
[2016-08-06] MEDS: POTASSIUM CHLORIDE 20 MEQ CONTROLLED RELEASE TAB PO SCH (08:32)
[2016-08-06] MEDS: SODIUM CHLORIDE 0.9% FLUSH 5 ML FLUSH IVF SCH ×2 (08:32→22:32)
[2016-08-06] MEDS: VANCOMYCIN 500 MG VIAL (FOR ORAL USE ONLY) PO SCH ×4 (08:32→22:30)
[2016-08-06] MEDS: CALCIUM/VITAMIN D 250 MG/125 U TAB PO SCH (08:32)
[2016-08-06] MEDS: DILTIAZEM-CD 120 MG CAP ER PO SCH (08:32)
[2016-08-06] MEDS: FAMOTIDINE 20 MG TAB PO SCH ×2 (08:32→22:31)
[2016-08-06] MEDS: NYSTATIN SUSP 500,000 U/5 ML CUP SWISH-SWAL SCH ×4 (08:32→22:31)
[2016-08-06] MEDS: MAGNESIUM OXIDE 400 MG TAB G-TUBE SCH ×2 (08:32→22:31)
[2016-08-06] MEDS: ATORVASTATIN 20 MG TAB PO SCH (08:32)
[2016-08-06] MEDS: METOPROLOL TARTRATE 25 MG TAB PO SCH ×2 (08:37→22:31)
[2016-08-06] MEDS: SODIUM HYPOCHLORITE 0.25% 500 ML BTL TOPICAL SCH (08:37)
[2016-08-06] MEDS: ZINC OXIDE 20% OINT 30 GM TUBE TOPICAL SCH (08:38)
[2016-08-06] MEDS: COLLAGENASE OINT 30 GM TUBE TOP SCH (08:38)
[2016-08-06] MEDS: CEFEPIME INJ 2,000 MG in SODIUM CHLORIDE 0.9% INJ 100 ML IV SCH ×3 (08:39→23:24)
[2016-08-06] MEDS: POVIDONE IODINE 10% OINT 30 GM TUBE TOPICAL SCH (08:39)
[2016-08-06] MEDS: ACETAMINOPHEN/HYDROcodone 325 MG/5 MG TAB PO PRN (09:05)
[2016-08-06] MEDS: DRONABINOL 2.5 MG CAP PO SCH ×2 (11:34→15:42)
[2016-08-06] MEDS: LACTATED RINGER'S 1000 ML INJ 1,000 ML IV SCH ×2 (11:35→23:25)
[2016-08-06] MEDS: VANCOMYCIN 1,000 MG/NS 250 ML IV SCH ×2 (13:28)
[2016-08-06 15:34] LABS: POTASSIUM 4.3 MEQ/L (3.5-5.1)
[2016-08-06 15:53] LABS: AUTOMATED NEUTROPHIL # 13.8 TH/MM3 (1.8-7.7); BASOPHIL # 0.1 TH/MM3 (0-0.2); BASOPHIL % 0.5 % (0.0-2.0); EOSINOPHIL # 0.1 TH/MM3 (0-0.4); EOSINOPHIL % 0.4 % (0.0-4.0); HEMATOCRIT 21.2 % (39.0-51.0); LYMPH % 12.4 % (9.0-44.0); LYMPHOCYTE # 2.2 TH/MM3 (1.0-4.8); MEAN CELL VOLUME 88.9 FL (80.0-100.0); MEAN CORPUSCULAR HEMOGLOBIN 28.8 PG (27.0-34.0); MEAN CORPUSCULAR HGB CONC 32.4 % (32.0-36.0); MONO % 7.8 % (0.0-8.0); NEUT % 78.9 % (16.0-70.0); PLATELET COUNT 418 TH/MM3 (150-450); RED BLOOD COUNT 2.38 MIL/MM3 (4.50-5.90); RED CELL DISTRIBUTION WIDTH 18.2 % (11.6-17.2); WHITE BLOOD COUNT 17.4 TH/MM3 (4.0-11.0)
[2016-08-06 15:54] LABS: HEMO FLAGS DIFF FINAL
[2016-08-06] MEDS ORDERED: SODIUM CHLOR 0.9% 250 ML INJ 250 ML IV ONE (18:45)
--- NOTE | 2016-08-06 19:08 | HHI.IDPN ---
Subjective Subjective Remarks ID - X cover for Dr Byrd growing Proteus vulgaris from the L hip wound No fever toleating cefepime OK Antibiotics po vanco iv vanco Allergies: Coded Allergies: [place] Cheese (Verified Allergy, Unknown, 05/08/16) *MDRO Multi-Drug Resistant Organism (Verified Adverse Reaction, Unknown, MRSA, 07/15/16) MRSA (hip) - 07/12/16 Objective . Vital Signs Date Time Temp Pulse Resp B/P Pulse Ox O2 Delivery O2 Flow Rate FiO2 08/06/16 12:00 97.5 65 20 108/56 91 08/06/16 10:30 97 Nasal Cannula 2.00 08/06/16 10:11 Nasal Cannula 2.00 21 08/06/16 08:00 97.9 74 20 127/59 98 08/05/16 23:45 98 Nasal Cannula 2.00 08/05/16 21:21 75 08/05/16 21:00 Nasal Cannula 2.00 08/05/16 20:00 97.5 55 19 136/64 95 08/05/16 08/05/16 08/06/16 15:00 23:00 07:00 Intake Total 120 ml 90 ml Output Total 470 ml 200 ml Balance -350 ml -110 ml Intake Oral 120 ml 90 ml Output Urine Total 400 ml 200 ml Drainage Total 70 ml # Bowel Movements 0 0 . Laboratory Tests Test 08/05/16 08/06/16 14:28 15:37 White Blood Count 14.2 TH/MM3 17.4 TH/MM3 Red Blood Count 2.48 MIL/MM3 2.38 MIL/MM3 Hemoglobin 7.2 GM/DL 6.9 GM/DL Hematocrit 22.4 % 21.2 % Mean Corpuscular Volume 90.4 FL 88.9 FL Mean Corpuscular Hemoglobin 29.0 PG 28.8 PG Mean Corpuscular Hemoglobin 32.1 % 32.4 % Concent Red Cell Distribution Width 18.2 % 18.2 % Platelet Count 486 TH/MM3 418 TH/MM3 Mean Platelet Volume 8.4 FL 8.6 FL Neutrophils (%) (Auto) 85.5 % 78.9 % Lymphocytes (%) (Auto) 6.5 % 12.4 % Monocytes (%) (Auto) 7.9 % 7.8 % Eosinophils (%) (Auto) 0.0 % 0.4 % Basophils (%) (Auto) 0.1 % 0.5 % Neutrophils # (Auto) 12.2 TH/MM3 13.8 TH/MM3 Lymphocytes # (Auto) 0.9 TH/MM3 2.2 TH/MM3 Monocytes # (Auto) 1.1 TH/MM3 1.4 TH/MM3 Eosinophils # (Auto) 0.0 TH/MM3 0.1 TH/MM3 Basophils # (Auto) 0.0 TH/MM3 0.1 TH/MM3 CBC Comment DIFF FINAL DIFF FINAL Differential Comment Laboratory Tests Test 08/05/16 08/06/16 14:28 14:18 Sodium Level 144 MEQ/L 144 MEQ/L Potassium Level 4.2 MEQ/L 4.3 MEQ/L Chloride Level 111 MEQ/L 113 MEQ/L Carbon Dioxide Level 25.3 MEQ/L 24.0 MEQ/L Anion Gap 8 MEQ/L 7 MEQ/L Blood Urea Nitrogen 9 MG/DL 9 MG/DL Creatinine 0.78 MG/DL 0.70 MG/DL Estimat Glomerular Filtration 97 ML/MIN 109 ML/MIN Rate Random Glucose 97 MG/DL 107 MG/DL Calcium Level 7.9 MG/DL 7.6 MG/DL Phosphorus Level 2.7 MG/DL Magnesium Level 1.7 MG/DL Albumin 1.6 GM/DL Microbiology Date/Time Procedure Status Source Growth 08/03/16 21:05 Gram Stain - Final Complete Fluid Synovial Fluid 08/03/16 21:05 Body Fluid Culture - Final Complete Proteus Vulgaris 08/03/16 21:05 Acid Fast Stain - Final Resulted Fluid Synovial Fluid NO ACID FAST BACILLI SEEN 08/03/16 21:05 Mycobacterial Culture Resulted Fluid Synovial Fluid Pending 08/03/16 21:05 Fungal Smear - Final Resulted Fluid Synovial Fluid NO FUNGAL ELEMENTS SEEN. 08/03/16 21:05 Fungal Culture Resulted Fluid Synovial Fluid Pending Imaging Last Impressions Hip X-Ray 08/03/16 0000 Signed Impressions: Service Date/Time: Wednesday, August 03, 2016 20:06 - CONCLUSION: Dislocated bipolar hip arthroplasty. No perceptible fracture. Thor Donahue MD Hip Aspiration/Injection 07/15/16 0000 Signed Impressions: Service Date/Time: July 15:55 - CONCLUSION: Uncomplicated aspiration as above. Aniceto Vasquez MD Chest X-Ray 07/12/161957 Signed Impressions: Service Date/Time: Tuesday, July 12, 2016 20:23 - CONCLUSION: 1. Postoperative CABG. Remote granulomatous disease. No effusion or pneumothorax. Tony Galloway MD Pelvis X-Ray 07/12/16 0000 Signed Impressions: Service Date/Time: Tuesday, July 12, 2016 20:17 - CONCLUSION: 1. Postoperative left total hip replacement. Osteopenia. No acute bony abnormalities. Tony Galloway MD Physical Exam GENERAL: No acute distress. HEENT: PERRL. EOMI, No icterus. NECK: Supple, no adenopathy. LUNGS: Clear CARDIAC: Regular rate and rhythm. ABDOMEN: (+) BS, Soft, non tender. MUSCULOSKELETAL: R. hip wound with some drainage : Scrotal edema present EXTREMITIES: No CCE. Skin tear and excoriated lesions at extremities same. Edema, drainage arounf L hip incision Dressing in place SKIN: No rash. Assessment & Plan Remarks ASSESSMENT: R. hip wound infection - MRSA. Post R. hip arthroplasty. New issue - pt is growing a Proteus from [facility] wound - emilia Dr Gains: pt has all components of prosthesis removed - no plan for re-implantation for now C. diff colitis, repeat C.diff negative Leukocytosis - Persisting, worsening PLAN. Continue Vancomycin IV until 08/28/16 Continue Vancomycin PO for c. diff. Cont cefepime for Proteus prosthetic hip infx anticipate 6 wks of abx for Proteus prosthetic joint infx Zelda Dobson MD Aug 06, 2016 19:08
--- NOTE | 2016-08-06 20:53 | HHI.PR ---
Subjective Remarks Patient seen today around 3 PM. No acute events per nursing. No bleeding reported. Nursing reports good appetite. Patient sleeping, wakes up for exam. Denies any pain. Denies any shortness of breath. When asked if he is hungry , he says yes, which is a new change. Objective Vital Signs Date Time Temp Pulse Resp B/P Pulse Ox O2 Delivery O2 Flow Rate FiO2 08/06/16 16:00 98.2 90 20 110/58 89 08/06/16 12:00 97.5 65 20 108/56 91 08/06/16 10:30 97 Nasal Cannula 2.00 08/06/16 10:11 Nasal Cannula 2.00 21 08/06/16 08:12 66 08/06/16 08:00 97.9 74 20 127/59 98 08/05/16 23:45 98 Nasal Cannula 2.00 08/05/16 21:21 75 08/05/16 21:00 Nasal Cannula 2.00 I/O 08/05/16 08/05/16 08/05/16 08/06/16 08/06/16 08/06/16 07:00 15:00 23:00 07:00 15:00 23:00 Intake Total 2501 ml 120 ml 90 ml 0 ml Output Total 250 ml 470 ml 200 ml 500 ml Balance 2251 ml -350 ml -110 ml -500 ml Intake Oral 0 ml 120 ml 90 ml 0 ml IV Total 2501 ml Output Urine Total 250 ml 400 ml 200 ml 500 ml Drainage Total 70 ml # Bowel Movements 0 0 0 0 Result Diagram: 08/06/16 1537 08/06/16 1418 Procedures 07/15/16left hip aspiration 08/03/16 left hip arthroplasty removal Objective Remarks GENERAL: Patient sitting up in bed. Awake and alert. Oriented to person and place. Disoriented to year, month, as before. Follows commands.again, no acute changes on exam. SKIN: Warm and dry. HEAD: Normocephalic. EYES: No scleral icterus. No injection or drainage. NECK: Supple, trachea midline. No JVD or lymphadenopathy. CARDIOVASCULAR: Regular rate and rhythm without murmurs, gallops, or rubs. RESPIRATORY: Breath sounds equal bilaterally. No accessory muscle use. GASTROINTESTINAL: Abdomen soft, non-tender, nondistended. MUSCULOSKELETAL: No cyanosis, or edema. Left leg with dry scabs. Left hip postoperative with drain removed. Dressing clean dry and intact. BACK: Nontender without obvious deformity. No CVA tenderness. A/P Assessment and Plan === 08/06/16 Hemoglobin low. Replacement of one unit ordered. Follow-up labs tomorrow. -Calorie count started. Appreciate dietary assistance. Appetite improved on Marinol. 76 years old male //Sepsis secondary to C. difficile: Continue IV Flagyl, oral vancomycin for highly virulent strain of C. difficile. ff BMP. ID ff //Left hip MRSA wound and right lateral heel cellulitis: Appreciate orthopedic surgery recommendations. on IV vancomycin. ID ff seen by Plastics with wound care recommendations- -Status post removal of left hip arthroplasty 08/03. Appreciate surgical assistance. //Left hip fracture status post ORIF in May 2016. Appreciate orthopedic surgery recommendations. starting knee flexion contracture Continue physical therapy. -Status post removal of left hip arthroplasty 08/03. Appreciate surgical assistance. //Atrial fibrillation with RVR- rate better controlled.- now in SR on exam no chest pains Continue oral Cardizem CD 120 mg daily, metoprolol. Digoxin on hold. Plavix on hold. Heparin discontinued by cardiology. //Left atrial thrombus: Appreciate cardiology recommendations. Likely secondary to IA in the past. Heparin discontinued by cardiology. //Chronic systolic congestive heart failure with mild exacerbation: Exacerbation has resolved. Lasix on hold. Ejection fraction 40% on echocardiogram. Continue beta anthony. Hypertension: Norvasc on hold. Continue metoprolol. //Anemia: -Postoperative on chronic. -08/05. Hemoglobin roughly stable at 7.2 postoperatively. Continue to monitor. 08/06 Hemoglobin low. Replacement of one unit ordered. Follow-up labs tomorrow. //Poor oral intake: -08/05 Consult dietary for calorie count. Stop nicotine patch Add Marinol for appetite stimulation. -08/06 Calorie count started. Appetite improved on Marinol. Appreciate dietary assistance. //Peripheral vascular disease: Status post lower extremity bypass. //Dementia: Continue supportive care. //Diabetes mellitus: Monitor Accu-Cheks and cover with sliding scale insulin. //Hypomagnesemia: improved. [id number] 400 mg po bid //Hypokalemia: Continue to supplement potassium. ,. KCL 20 meq po daily //Hypocalcemia: Supplement calcium. //GI prophylaxis: Pepcid. Bulmaro Mendoza MD Aug 06, 2016 20:53
[2016-08-07] VITALS (10 sets, daily range): BP systolic 133–155; BP diastolic 63–75; PULSE 67–78; RESP 18–20; TEMP 97.3–98.3; O2SAT 93–100
[2016-08-07] MEDS: CHLORHEXIDINE GLUCONATE 2 % 1 PACK (2 CLOTHS) TOP SCH (04:00)
[2016-08-07] MEDS: INSULIN ASPART SUPPLEMENTAL SCALE SQ SCH ×4 (06:15→21:00)
[2016-08-07] MEDS: CEFEPIME INJ 2,000 MG in SODIUM CHLORIDE 0.9% INJ 100 ML IV SCH (08:59)
[2016-08-07] MEDS: POVIDONE IODINE 10% OINT 30 GM TUBE TOPICAL SCH (09:00)
[2016-08-07] MEDS: DILTIAZEM-CD 120 MG CAP ER PO SCH (09:01)
[2016-08-07] MEDS: VANCOMYCIN 500 MG VIAL (FOR ORAL USE ONLY) PO SCH ×4 (09:01→21:45)
[2016-08-07] MEDS: NYSTATIN SUSP 500,000 U/5 ML CUP SWISH-SWAL SCH ×4 (09:01→21:45)
[2016-08-07] MEDS: ATORVASTATIN 20 MG TAB PO SCH (09:01)
[2016-08-07] MEDS: FAMOTIDINE 20 MG TAB PO SCH ×2 (09:01→21:45)
[2016-08-07] MEDS: POTASSIUM CHLORIDE 20 MEQ CONTROLLED RELEASE TAB PO SCH (09:02)
[2016-08-07] MEDS: SODIUM CHLORIDE 0.9% FLUSH 5 ML FLUSH IVF SCH ×2 (09:02→21:00)
[2016-08-07] MEDS: ZINC OXIDE 20% OINT 30 GM TUBE TOPICAL SCH (09:02)
[2016-08-07] MEDS: CALCIUM/VITAMIN D 250 MG/125 U TAB PO SCH (09:02)
[2016-08-07] MEDS: MAGNESIUM OXIDE 400 MG TAB G-TUBE SCH ×2 (09:02→21:45)
[2016-08-07] MEDS: METOPROLOL TARTRATE 25 MG TAB PO SCH ×2 (09:02→21:45)
[2016-08-07] MEDS: COLLAGENASE OINT 30 GM TUBE TOP SCH (09:03)
[2016-08-07] MEDS: SODIUM HYPOCHLORITE 0.25% 500 ML BTL TOPICAL SCH (09:03)
[2016-08-07] MEDS: DRONABINOL 2.5 MG CAP PO SCH ×2 (11:27→16:32)
[2016-08-07] MEDS: LACTATED RINGER'S 1000 ML INJ 1,000 ML IV SCH (11:28)
[2016-08-07] MEDS ORDERED: PILL SPLITTER OTHER PRN (15:15)
--- NOTE | 2016-08-07 17:42 | HHI.PR ---
Subjective Remarks pt alert. denies pain. no bm in several days. no abd pain. no acute changes. Objective Vital Signs Date Time Temp Pulse Resp B/P Pulse Ox O2 Delivery O2 Flow Rate FiO2 08/07/16 12:22 Nasal Cannula 2.00 21 08/07/16 12:00 97.3 68 20 155/65 96 08/07/16 10:12 93 Nasal Cannula 2.00 08/07/16 08:00 97.3 77 20 133/63 94 08/07/16 06:05 97.5 71 20 143/75 100 08/07/16 04:00 97.3 78 20 147/67 100 08/07/16 02:20 97.4 70 20 145/67 100 08/07/16 02:05 97.8 67 20 150/70 99 08/07/16 00:00 97.8 67 20 150/70 99 08/06/16 20:45 Nasal Cannula 2.00 08/06/16 20:03 81 08/06/16 20:00 98.0 90 20 138/65 95 I/O 08/06/16 08/06/16 08/06/16 08/07/16 08/07/16 08/07/16 07:00 15:00 23:00 07:00 15:00 23:00 Intake Total 0 ml 240 ml 360 ml Output Total 500 ml 50 ml 520 ml Balance -500 ml 190 ml -160 ml Intake Oral 0 ml 240 ml 360 ml Output Urine Total 500 ml 50 ml 520 ml # Bowel Movements 0 0 Result Diagram: 08/06/16 1537 08/07/16 0630 Procedures 07/15/16left hip aspiration 08/03/16 left hip arthroplasty removal Objective Remarks GENERAL: Patient sitting up in bed. Awake and alert. Oriented to person and place. Disoriented to year, month, as before. Follows commands. no acute changes. SKIN: Warm and dry. HEAD: Normocephalic. EYES: No scleral icterus. No injection or drainage. NECK: Supple, trachea midline. No JVD or lymphadenopathy. CARDIOVASCULAR: Regular rate and rhythm without murmurs, gallops, or rubs. RESPIRATORY: Breath sounds equal bilaterally. No accessory muscle use. GASTROINTESTINAL: Abdomen soft, non-tender, nondistended. MUSCULOSKELETAL: No cyanosis, or edema. Left leg with dry scabs. Left hip postoperative with drain removed. Dressing clean dry and intact. BACK: Nontender without obvious deformity. No CVA tenderness. A/P Assessment and Plan === 08/07/16 DAMIAN: CR elevated 1.8. Vancomycin recently high. incr fluids. UA, Fena. ID has held vancomycin f/u hgb cont nat count, marinol 76 years old male //Sepsis secondary to C. difficile: Continue IV Flagyl, oral vancomycin for highly virulent strain of C. difficile. ff BMP. ID ff //Left hip MRSA wound and right lateral heel cellulitis: Appreciate orthopedic surgery recommendations. on IV vancomycin. ID ff seen by Plastics with wound care recommendations- -Status post removal of left hip arthroplasty 08/03. Appreciate surgical assistance. //Left hip fracture status post ORIF in May 2016. Appreciate orthopedic surgery recommendations. starting knee flexion contracture Continue physical therapy. -Status post removal of left hip arthroplasty 08/03. Appreciate surgical assistance. //Atrial fibrillation with RVR- rate better controlled.- now in SR on exam no chest pains Continue oral Cardizem CD 120 mg daily, metoprolol. Digoxin on hold. Plavix on hold. Heparin discontinued by cardiology. //Left atrial thrombus: Appreciate cardiology recommendations. Likely secondary to DE in the past. Heparin discontinued by cardiology. //Chronic systolic congestive heart failure with mild exacerbation: Exacerbation has resolved. Lasix on hold. Ejection fraction 40% on echocardiogram. Continue beta anthony. Hypertension: Norvasc on hold. Continue metoprolol. //Anemia: -Postoperative on chronic. -08/05. Hemoglobin roughly stable at 7.2 postoperatively. Continue to monitor. 08/06 Hemoglobin low. Replacement of one unit ordered. Follow-up labs tomorrow. 08/07 rpt h/h pending. //DAMIAN: CR elevated 1.8. Vancomycin recently high. incr fluids. UA, Fena. ID has held vancomycin -incr ivf. //Poor oral intake: -08/05 Consult dietary for calorie count. Stop nicotine patch Add Marinol for appetite stimulation. -08/06 Calorie count started. Appetite improved on Marinol. Appreciate dietary assistance. //Peripheral vascular disease: Status post lower extremity bypass. //Dementia: Continue supportive care. //Diabetes mellitus: Monitor Accu-Cheks and cover with sliding scale insulin. //Hypomagnesemia: improved. [id number] 400 mg po bid //Hypokalemia: Continue to supplement potassium. ,. KCL 20 meq po daily //Hypocalcemia: Supplement calcium. //GI prophylaxis: Pepcid. Bulmaro Mendoza MD Aug 07, 2016 17:42
[2016-08-07] MEDS: DEXT 5%-NACL 0.45% 1000 ML INJ 1,000 ML IV SCH (18:12)
[2016-08-07 20:22] LABS: AUTOMATED NEUTROPHIL # 14.2 TH/MM3 (1.8-7.7); BASOPHIL # 0.1 TH/MM3 (0-0.2); BASOPHIL % 0.3 % (0.0-2.0); EOSINOPHIL % 0.2 % (0.0-4.0); HEMATOCRIT 26.5 % (39.0-51.0); LYMPH % 6.6 % (9.0-44.0); LYMPHOCYTE # 1.1 TH/MM3 (1.0-4.8); MEAN CELL VOLUME 90.1 FL (80.0-100.0); MEAN CORPUSCULAR HEMOGLOBIN 29.1 PG (27.0-34.0); MEAN CORPUSCULAR HGB CONC 32.3 % (32.0-36.0); MONO % 7.2 % (0.0-8.0); NEUT % 85.7 % (16.0-70.0); PLATELET COUNT 452 TH/MM3 (150-450); RED BLOOD COUNT 2.94 MIL/MM3 (4.50-5.90); RED CELL DISTRIBUTION WIDTH 18.2 % (11.6-17.2); WHITE BLOOD COUNT 16.6 TH/MM3 (4.0-11.0)
[2016-08-07 20:24] LABS: HEMO FLAGS AUTO DIFF
[2016-08-07 20:56] LABS: BICARBONATE 23.7 MEQ/L (21.0-32.0); POTASSIUM 3.7 MEQ/L (3.5-5.1)
[2016-08-07 21:01] LABS: PLATELET ESTIMATE SMEAR HIGH (NORMAL); PLATELET MORPHOLOGY NORMAL (NORMAL); SCAN/DIFF AUTO DIFF CONFIRMED
[2016-08-07 22:25] LABS: BACTERIA, URINE RARE /hpf; BLOOD, URINE TRACE (NEG); COMMENT (UR) CATH-CULTURE IND; CULTURE IF INDICATED CATH CULTURE IND; GLUCOSE,URINE NEG (NEG); HYALINE CAST, URINE 5 /lpf (RARE); KETONE, URINE TRACE mg/dL (NEG); MUCUS URINE FEW /lpf (OCC); NITRITE,URINE NEG (NEG); PH, URINE 6.5 (5.0-8.5); URINE COLOR YELLOW (YELLW/STRAW)
[2016-08-08] VITALS (8 sets, daily range): BP systolic 136–162; BP diastolic 63–81; PULSE 66–82; RESP 17–20; TEMP 97.3–98.5; O2SAT 95–98
[2016-08-08] MEDS: DEXT 5%-NACL 0.45% 1000 ML INJ 1,000 ML IV SCH ×3 (01:23→16:15)
[2016-08-08] MEDS: CHLORHEXIDINE GLUCONATE 2 % 1 PACK (2 CLOTHS) TOP SCH (03:54)
[2016-08-08] MEDS: INSULIN ASPART SUPPLEMENTAL SCALE SQ SCH ×4 (06:14→21:00)
[2016-08-08] MEDS: VANCOMYCIN 500 MG VIAL (FOR ORAL USE ONLY) PO SCH ×5 (08:43→21:52)
[2016-08-08] MEDS: FAMOTIDINE 20 MG TAB PO SCH ×2 (08:44→21:52)
[2016-08-08] MEDS: NYSTATIN SUSP 500,000 U/5 ML CUP SWISH-SWAL SCH ×5 (08:44→21:52)
[2016-08-08] MEDS: METOPROLOL TARTRATE 25 MG TAB PO SCH ×2 (08:44→21:52)
[2016-08-08] MEDS: DILTIAZEM-CD 120 MG CAP ER PO SCH (08:45)
[2016-08-08] MEDS: COLLAGENASE OINT 30 GM TUBE TOP SCH (08:45)
[2016-08-08] MEDS: ATORVASTATIN 20 MG TAB PO SCH (08:45)
[2016-08-08] MEDS: MAGNESIUM OXIDE 400 MG TAB G-TUBE SCH ×3 (08:45→21:52)
[2016-08-08] MEDS: CALCIUM/VITAMIN D 250 MG/125 U TAB PO SCH ×2 (08:45→08:56)
[2016-08-08] MEDS: POTASSIUM CHLORIDE 20 MEQ CONTROLLED RELEASE TAB PO SCH ×2 (08:45→08:56)
[2016-08-08] MEDS: SODIUM CHLORIDE 0.9% FLUSH 5 ML FLUSH IVF SCH ×2 (08:45→21:00)
[2016-08-08] MEDS: POVIDONE IODINE 10% OINT 30 GM TUBE TOPICAL SCH (08:46)
[2016-08-08] MEDS: SODIUM HYPOCHLORITE 0.25% 500 ML BTL TOPICAL SCH (08:46)
[2016-08-08] MEDS: ZINC OXIDE 20% OINT 30 GM TUBE TOPICAL SCH (08:47)
[2016-08-08] MEDS ORDERED: CEFEPIME INJ 2,000 MG in SODIUM CHLORIDE 0.9% INJ 100 ML IV SCH (09:00)
[2016-08-08] MEDS: DRONABINOL 2.5 MG CAP PO SCH ×2 (11:55→16:17)
[2016-08-08] MEDS: VANCOMYCIN INJ 750 MG in SODIUM CHLOR 0.9% 250 ML INJ 250 ML IV SCH (12:06)
[2016-08-08] MEDS: CEFEPIME INJ 2,000 MG in SODIUM CHLORIDE 0.9% INJ 100 ML IV SCH (16:16)
--- NOTE | 2016-08-08 22:12 | HHI.PR ---
Subjective Remarks Patient seen today around 3 PM. Says he is doing okay. Denies any chest pain or shortness of breath. Does report some hip pain. Effective bowel movement today. Discussed with nursing. Continues with poor by mouth intake Objective Vital Signs Date Time Temp Pulse Resp B/P Pulse Ox O2 Delivery O2 Flow Rate FiO2 08/08/16 16:00 97.8 80 20 136/81 98 08/08/16 13:12 66 08/08/16 12:00 97.3 80 20 149/69 95 08/08/16 10:22 96 Nasal Cannula 2.00 08/08/16 08:40 Nasal Cannula 2.00 21 08/08/16 08:00 97.5 73 20 148/73 96 08/08/16 04:00 98.2 74 18 162/74 95 08/08/16 00:00 98.5 72 17 154/71 95 I/O 08/07/16 08/07/16 08/07/16 08/08/16 08/08/16 08/08/16 07:00 15:00 23:00 07:00 15:00 23:00 Intake Total 360 ml 0 ml 180 ml 2196 ml 1125 ml Output Total 520 ml 725 ml 100 ml 300 ml 1150 ml Balance -160 ml -725 ml 80 ml 1896 ml -25 ml Intake Oral 360 ml 0 ml 180 ml 80 ml 0 ml IV Total 2116 ml 1125 ml Output Urine Total 520 ml 725 ml 100 ml 300 ml 1150 ml # Bowel Movements 0 0 1 Result Diagram: 08/07/16200008/07/16 2001 Procedures 07/15/16left hip aspiration 08/03/16 left hip arthroplasty removal Objective Remarks GENERAL: Patient sitting up in bed. Awake and alert. Oriented to person and the fact that he is in the hospital. Disoriented to year, month, as before. Follows commands. Again, no acute changes. SKIN: Warm and dry. HEAD: Normocephalic. EYES: No scleral icterus. No injection or drainage. NECK: Supple, trachea midline. No JVD or lymphadenopathy. CARDIOVASCULAR: Regular rate and rhythm without murmurs, gallops, or rubs. RESPIRATORY: Breath sounds equal bilaterally. No accessory muscle use. GASTROINTESTINAL: Abdomen soft, non-tender, nondistended. MUSCULOSKELETAL: No cyanosis, or edema. Left leg with dry scabs. Left hip postoperative with drain removed. Dressing clean dry and intact. Unchanged. BACK: Nontender without obvious deformity. No CVA tenderness. A/P Assessment and Plan ==== 08/08/16 Repeat hemoglobin yesterday improved after replacement. We'll recheck tomorrow False elevation of creatinine yesterday 1.8. Repeat same day surgery 0.62. Vancomycin has been restarted. Ongoing calorie count. Still poor by mouth intake. Supplement with D5 fluids Increase Marinol. Patient may need PEG tube. We'll need to discuss with family. 76 years old male //Sepsis secondary to C. difficile: Continue IV Flagyl, oral vancomycin for highly virulent strain of C. difficile. ff BMP. ID ff //Left hip MRSA wound and right lateral heel cellulitis: Appreciate orthopedic surgery recommendations. on IV vancomycin. ID ff seen by Plastics with wound care recommendations- -Status post removal of left hip arthroplasty 08/03. Appreciate surgical assistance. -Continue antibiotics as per infectious disease. On vancomycin. //Left hip fracture status post ORIF in May 2016. Appreciate orthopedic surgery recommendations. starting knee flexion contracture Continue physical therapy. -Status post removal of left hip arthroplasty 08/03. Appreciate surgical assistance. -Restart Plavix for peripheral artery disease when approved by surgical service. //Atrial fibrillation with RVR- rate better controlled.- now in SR on exam no chest pains Continue oral Cardizem CD 120 mg daily, metoprolol. Digoxin on hold. Plavix on hold. Heparin discontinued by cardiology. //Left atrial thrombus: Appreciate cardiology recommendations. Likely secondary to NE in the past. Heparin discontinued by cardiology. //Chronic systolic congestive heart failure with mild exacerbation: Exacerbation has resolved. Lasix on hold. Ejection fraction 40% on echocardiogram. Continue beta anthony. Hypertension: Norvasc on hold. Continue metoprolol. //Anemia: -Postoperative on chronic. -08/05. Hemoglobin roughly stable at 7.2 postoperatively. Continue to monitor. 08/06 Hemoglobin low. Replacement of one unit ordered. Follow-up labs tomorrow. 08/07 rpt h/h improved. 08/08. Continue to monitor. //DAMIAN: This was probably a lab error. Initially lab returned with creatinine 1.8.. Repeat same day normal creatinine. //Poor oral intake: -08/05 Consult dietary for calorie count. Stop nicotine patch Add Marinol for appetite stimulation. -08/06 Calorie count started. Appetite improved on Marinol. Appreciate dietary assistance. 08/08. Increase Marinol. Calorie count to finish on 08/09. Patient may need PEG tube. //Peripheral vascular disease: Status post lower extremity bypass. //Dementia: Continue supportive care. //Diabetes mellitus: Monitor Accu-Cheks and cover with sliding scale insulin. //Hypomagnesemia: improved. [id number] 400 mg po bid //Hypokalemia: Continue to supplement potassium. ,. KCL 20 meq po daily //Hypocalcemia: Supplement calcium. //GI prophylaxis: Pepcid. Discharge Planning Ongoing calorie count for poor by mouth intake. Patient will likely need PEG tube Bulmaro Mendoza MD Aug 08, 2016 22:12
[2016-08-09] VITALS (10 sets, daily range): BP systolic 131–169; BP diastolic 61–77; PULSE 70–82; RESP 16–20; TEMP 97.2–98.6; O2SAT 95–99
[2016-08-09] MEDS: CEFEPIME INJ 2,000 MG in SODIUM CHLORIDE 0.9% INJ 100 ML IV SCH ×3 (01:03→16:46)
[2016-08-09] MEDS: DEXT 5%-NACL 0.45% 1000 ML INJ 1,000 ML IV SCH ×3 (01:03→16:46)
[2016-08-09] MEDS: CHLORHEXIDINE GLUCONATE 2 % 1 PACK (2 CLOTHS) TOP SCH (04:00)
[2016-08-09] MEDS: INSULIN ASPART SUPPLEMENTAL SCALE SQ SCH ×4 (05:36→21:00)
--- NOTE | 2016-08-09 08:34 | PD.ORT.PN ---
Subjective Post Op Day #: 6 Subjective Remarks 76yo male s/p left bipolar arthroplasty for femoral neck fracture, s/p bipolar hip resection. His original procedure was delayed several weeks secondary to renal issues and aspiration pneumonia. Pt. d/c'd to rehab but sent home after ins. coverage . Rest of hx not clear. Pt readmitted recently with diabetic ulcer, generalized decline in health and decubiti including operative site. He has not had out patient f/u. Unclear as to functional status as he has dementia and no family available. Due to continued flexion contracture with failed conservative treatment including aggressive rehabilitation, bracing, joint aspiration under IR guidance and manipulation under anesthesia patient recently underwent a bipolar hip resection. See operative note for details. Pt is tolerating very procedure well. Admits to controlled left hip pain. Left hip is no longer in flexion contracture. Pt laying in bed, pleasantly confused, hip abductor pillow in place. History unreliable from patient. No other complaints noted. Objective Vitals Vital Signs Date Time Temp Pulse Resp B/P Pulse Ox O2 Delivery O2 Flow Rate FiO2 08/09/16 08:28 97 Nasal Cannula 2.00 08/09/16 04:00 98.4 70 18 131/61 98 08/09/16 00:00 98.6 70 17 144/67 95 08/08/16 20:00 96 Nasal Cannula 2.00 21 08/08/16 20:00 98.5 82 18 144/63 96 08/08/16 20:00 78 08/08/16 16:00 97.8 80 20 136/81 98 08/08/16 13:12 66 08/08/16 12:00 97.3 80 20 149/69 95 08/08/16 10:22 96 Nasal Cannula 2.00 08/08/16 08:40 Nasal Cannula 2.00 21 I/O 08/08/16 08/08/16 08/08/16 08/09/16 08/09/16 08/09/16 07:00 15:00 23:00 07:00 15:00 23:00 Intake Total 2196 ml 1125 ml 80 ml 2080 ml Output Total 300 ml 1150 ml 150 ml 550 ml Balance 1896 ml -25 ml -70 ml 1530 ml Intake Oral 80 ml 0 ml 80 ml 80 ml IV Total 2116 ml 1125 ml 2000 ml Output Urine Total 300 ml 1150 ml 150 ml 550 ml # Bowel Movements 1 Result Diagram: 08/07/16200008/07/162000 Other Results Microbiology Date/Time Procedure Status Source Growth 08/07/16 22:00 Urine Culture - Preliminary Resulted Urine Catheterized Urine NO GROWTH IN 24 HOURS. Imaging Last Impressions Hip X-Ray 08/03/16 0000 Signed Impressions: Service Date/Time: Wednesday, August 03, 2016 20:06 - CONCLUSION: Dislocated bipolar hip arthroplasty. No perceptible fracture. Thor Donahue MD Hip Aspiration/Injection 07/15/16 0000 Signed Impressions: Service Date/Time: July 15:55 - CONCLUSION: Uncomplicated aspiration as above. Aniceto Vasquez MD Chest X-Ray 07/12/161957 Signed Impressions: Service Date/Time: Tuesday, July 12, 2016 20:23 - CONCLUSION: 1. Postoperative CABG. Remote granulomatous disease. No effusion or pneumothorax. Tony Galloway MD Pelvis X-Ray 07/12/16 0000 Signed Impressions: Service Date/Time: Tuesday, July 12, 2016 20:17 - CONCLUSION: 1. Postoperative left total hip replacement. Osteopenia. No acute bony abnormalities. Tony Galloway MD Procedures Left hip resection arthroplasty 08/03/16 Objective Remarks LLE: Pt awake, alert, pleasantly confused. Dressing dry and intact. Mild swelling, 1+ pitting edema noted over incision area and B/L ankles/feet. Abduction pillow intact. Exam limited by the current nursing care. Assessment & Plan Ortho Post Op Day #: 6 Problem List: (1) Left hip prosthetic joint infection (2) Dislocation of internal left hip prosthesis (3) Sepsis (4) PVD (peripheral vascular disease) (5) Non healing left heel wound (6) Type 2 diabetes mellitus Assessment and Plan Ortho status stable POD #6. Continue abduction pillow while in bed. May remove it as needed for hygeine, dressing changes and OOB activity. NO hip precautions , may position as needed. Progress OOB activity if medically able. D/C planning. Continue dressing changes left hip. Wound care to evaluate and continue management of left hip incision/ulceration. Continue wet to dry dressings over debridement of left hip and dress sutured area with alcohol/ xeroform/4x4. Appreciate medical team and infectious disease involvement in patient's care. Mary Ellen Pike Aug 09, 2016 08:34
[2016-08-09] MEDS: CALCIUM/VITAMIN D 250 MG/125 U TAB PO SCH (08:49)
[2016-08-09] MEDS: NYSTATIN SUSP 500,000 U/5 ML CUP SWISH-SWAL SCH ×4 (08:49→22:12)
[2016-08-09] MEDS: POTASSIUM CHLORIDE 20 MEQ CONTROLLED RELEASE TAB PO SCH (08:49)
[2016-08-09] MEDS: DILTIAZEM-CD 120 MG CAP ER PO SCH (08:49)
[2016-08-09] MEDS: MAGNESIUM OXIDE 400 MG TAB G-TUBE SCH ×2 (08:49→22:12)
[2016-08-09] MEDS: ATORVASTATIN 20 MG TAB PO SCH (08:49)
[2016-08-09] MEDS: FAMOTIDINE 20 MG TAB PO SCH ×2 (08:49→22:12)
[2016-08-09] MEDS: ZINC OXIDE 20% OINT 30 GM TUBE TOPICAL SCH (08:50)
[2016-08-09] MEDS: VANCOMYCIN 500 MG VIAL (FOR ORAL USE ONLY) PO SCH ×4 (08:50→22:11)
[2016-08-09] MEDS: COLLAGENASE OINT 30 GM TUBE TOP SCH ×2 (08:51→09:00)
[2016-08-09] MEDS: POVIDONE IODINE 10% OINT 30 GM TUBE TOPICAL SCH (08:51)
[2016-08-09] MEDS: SODIUM HYPOCHLORITE 0.25% 500 ML BTL TOPICAL SCH (08:51)
[2016-08-09] MEDS: METOPROLOL TARTRATE 25 MG TAB PO SCH ×2 (08:52→22:12)
[2016-08-09] MEDS: SODIUM CHLORIDE 0.9% FLUSH 5 ML FLUSH IVF SCH ×2 (08:58→22:42)
[2016-08-09 09:06] LABS: BASOPHIL % 0.2 % (0.0-2.0); EOSINOPHIL % 0.3 % (0.0-4.0); HEMATOCRIT 28.7 % (39.0-51.0); HEMO FLAGS DIFF FINAL; LYMPHOCYTE # 1.6 TH/MM3 (1.0-4.8); MEAN CELL VOLUME 87.7 FL (80.0-100.0); MEAN CORPUSCULAR HEMOGLOBIN 28.7 PG (27.0-34.0); MEAN CORPUSCULAR HGB CONC 32.7 % (32.0-36.0); MONO % 6.8 % (0.0-8.0); NEUT % 82.7 % (16.0-70.0); PLATELET COUNT 494 TH/MM3 (150-450); RED BLOOD COUNT 3.27 MIL/MM3 (4.50-5.90); RED CELL DISTRIBUTION WIDTH 17.6 % (11.6-17.2); WHITE BLOOD COUNT 15.7 TH/MM3 (4.0-11.0)
[2016-08-09 09:41] LABS: BICARBONATE 23.8 MEQ/L (21.0-32.0); MAGNESIUM 1.7 MG/DL (1.5-2.5)
[2016-08-09 09:51] LABS: POTASSIUM 2.8 MEQ/L (3.5-5.1)
[2016-08-09] MEDS ORDERED: POTASSIUM CHLOR 20 MEQ PREMIX 100 ML IV ONE (11:30)
[2016-08-09] MEDS ORDERED: POTASSIUM PHOSPHATE INJ 30 MMOL in SODIUM CHLOR 0.9% 250 ML INJ 250 ML IV ONE (13:00)
[2016-08-09] MEDS: DRONABINOL 2.5 MG CAP PO SCH ×2 (13:23→16:00)
[2016-08-09] MEDS: VANCOMYCIN INJ 750 MG in SODIUM CHLOR 0.9% 250 ML INJ 250 ML IV SCH (13:25)
--- NOTE | 2016-08-09 16:09 | PD.CONS ---
HPI History of Present Illness This is a 76 year old male who is currently hospitalized for sepsis secondary to C. difficile, left hip MRSA wound and right lateral heel cellulitis, atrial fibrillation, left atrial thrombus, acute on chronic anemia, and poor po intake. He tested positive for C difficile, 027 (+) on 07/17. He is currently receiving oral vancomycin and his repeat CDiff was negative on 08/03/16. As far as his poor po intake, he was given a trial of Marinol and although his appetite did improve, he continued to have poor po intake. A Calorie count was ordered, but incomplete, as no meal tickets were filled out. According to the, he is eating < 25% of his meals. He is getting Enlive supplements 3 times a day. GI was consulted for PEG tube placement. The patient is unable to provide any information and therefore the history has been obtained from the EMR. Called and spoke to the patient's healthcare surrogate, Regina Newby regarding EGD with PEG tube, procedure, risks, benefits and she would like to proceed. (Lee Ann Jaramillo) PFSH Past Medical History Alzheimer's dementia Diabetes mellitus HTN CAD CVA PVD Left heel ulceration Past Surgical History CABG Left femoral bypass and endarterectomy Left hip arthroplasty for left femoral neck fracture (Lee Ann Jaramillo) Coded Allergies: Marshallese Cheese (Verified Allergy, Unknown, 05/08/16) *MDRO Multi-Drug Resistant Organism (Verified Adverse Reaction, Unknown, MRSA, 07/15/16) MRSA (hip) - 07/12/16 Medications Allergies Coded Allergies Type Severity Reaction Last Updated Verified Marshallese Cheese Allergy Unknown 05/08/16 Yes *MDRO Multi-Drug Resistant Organism Adverse Reaction Unknown MRSA 07/15/16 Yes Active Scripts Medications Dose Route/Sig Days Date Category Dose Instructions Novolog Inj (Insulin Aspart) 1,000 Unit/10 Ml Vial 1-9 Units SQ ACHS 05/28/16 Rx Max dose at bedtime:( )units; sugars less than 70,(0) units; sugars 150-199,(1) unit; sugars 200-249,(3) units; sugars 250-299,(5) units; sugars 300-349,(7) units; sugars greater than 349,(9) units Nystatin Liq 100,000 unit/ml Susp 5 Ml SWISH-SWAL QID 05/28/16 Rx Norvasc (Amlodipine Besylate) 10 Mg Tab 5 Mg PO DAILY 05/28/16 Rx Hydrocodone-Acetaminophen 5-325 mg Tab 1 Tab PO Q4H PRN 05/28/16 Rx Lovenox Inj (Enoxaparin Sodium) 40 Mg/0.4 Ml Syr 40 Mg SQ Q24H 05/28/16 Rx Walker with Front Wheels (Device) 1 Mis Mis 1 Ea .ROUTE DIRECTED 05/28/16 Rx 3-in-1 Bedside Toilet (Device) 1 Mis Mis 1 Ea .ROUTE DIRECTED 05/28/16 Rx Flomax (Tamsulosin HCl) 0.4 Mg Cap 0.4 Mg PO HS 05/02/16 Reported Clopidogrel (Clopidogrel Bisulfate) 75 Mg Tab 75 Mg PO DAILY 05/02/16 Reported Atorvastatin (Atorvastatin Calcium) 20 Mg Tab 20 Mg PO DAILY 05/02/16 Reported Family History Noncontributory Social History According to EMR, longterm patient, no use of tobacco, etoh, or illicit drug use. (Lee Ann Jaramillo) Review of Systems ROS unable to obtain (Lee Ann Jaramillo) GI Exam Vitals I&O Vital Signs Date Time Temp Pulse Resp B/P Pulse Ox O2 Delivery O2 Flow Rate FiO2 08/09/16 12:07 98.0 80 16 152/77 98 08/09/16 08:28 97 Nasal Cannula 2.00 08/09/16 08:08 97.2 74 16 165/70 97 08/09/16 08:07 97.2 74 16 165/70 97 08/09/16 08:00 Nasal Cannula 2.00 08/09/16 04:00 98.4 70 18 131/61 98 08/09/16 00:00 98.6 70 17 144/67 95 08/08/16 20:00 96 Nasal Cannula 2.00 21 08/08/16 20:00 98.5 82 18 144/63 96 08/08/16 20:00 78 08/08/16 16:00 97.8 80 20 136/81 98 I/O 08/08/16 08/08/16 08/08/16 08/09/16 08/09/16 08/09/16 07:00 15:00 23:00 07:00 15:00 23:00 Intake Total 2196 ml 1125 ml 80 ml 2080 ml Output Total 300 ml 1150 ml 150 ml 550 ml Balance 1896 ml -25 ml -70 ml 1530 ml Intake Oral 80 ml 0 ml 80 ml 80 ml IV Total 2116 ml 1125 ml 2000 ml Output Urine Total 300 ml 1150 ml 150 ml 550 ml # Bowel Movements 1 Imaging Last Impressions Hip X-Ray 08/03/16 0000 Signed Impressions: Service Date/Time: Wednesday, August 03, 2016 20:06 - CONCLUSION: Dislocated bipolar hip arthroplasty. No perceptible fracture. Thor Donahue MD Hip Aspiration/Injection 07/15/16 0000 Signed Impressions: Service Date/Time: July 15:55 - CONCLUSION: Uncomplicated aspiration as above. Aniceto Vasquez MD Chest X-Ray 07/12/161957 Signed Impressions: Service Date/Time: Tuesday, July 12, 2016 20:23 - CONCLUSION: 1. Postoperative CABG. Remote granulomatous disease. No effusion or pneumothorax. Tony Galloway MD Pelvis X-Ray 07/12/16 0000 Signed Impressions: Service Date/Time: Tuesday, July 12, 2016 20:17 - CONCLUSION: 1. Postoperative left total hip replacement. Osteopenia. No acute bony abnormalities. Tony Galloway MD Laboratory Test 08/09/16 08:25 White Blood Count 15.7 TH/MM3 Red Blood Count 3.27 MIL/MM3 Hemoglobin 9.4 GM/DL Hematocrit 28.7 % Mean Corpuscular Volume 87.7 FL Mean Corpuscular Hemoglobin 28.7 PG Mean Corpuscular Hemoglobin 32.7 % Concent Red Cell Distribution Width 17.6 % Platelet Count 494 TH/MM3 Mean Platelet Volume 8.5 FL Neutrophils (%) (Auto) 82.7 % Lymphocytes (%) (Auto) 10.0 % Monocytes (%) (Auto) 6.8 % Eosinophils (%) (Auto) 0.3 % Basophils (%) (Auto) 0.2 % Neutrophils # (Auto) 13.0 TH/MM3 Lymphocytes # (Auto) 1.6 TH/MM3 Monocytes # (Auto) 1.1 TH/MM3 Eosinophils # (Auto) 0.0 TH/MM3 Basophils # (Auto) 0.0 TH/MM3 CBC Comment DIFF FINAL Differential Comment Sodium Level 139 MEQ/L Potassium Level 2.8 MEQ/L Chloride Level 106 MEQ/L Carbon Dioxide Level 23.8 MEQ/L Anion Gap 9 MEQ/L Blood Urea Nitrogen 6 MG/DL Creatinine 0.76 MG/DL Estimat Glomerular Filtration 99 ML/MIN Rate Random Glucose 157 MG/DL Calcium Level 7.4 MG/DL Phosphorus Level 1.8 MG/DL Magnesium Level 1.7 MG/DL Albumin 1.4 GM/DL Date/Time Procedure Status Source Growth 08/07/16 22:00 Urine Culture - Final Complete Urine Catheterized Urine NO GROWTH IN 48 HOURS. Physical Examination HEENT: Normocephalic CHEST: Resp. even/unlabored, diminished CARDIAC: RRR ABDOMEN: Soft, nondistended, nontender; no hepatosplenomegaly; bowel sounds are present in all four quadrants. EXTREMITIES: Generalized edema SKIN: Multiple dry wounds to all extremities CAR ICER: Awake, lethargic, confused (Lee Ann Jaramillo) Assessment and Plan Plan ASSESSMENT: - Poor po intake, Protein malnutrition. Pt currently hospitalized with sepsis secondary to C. difficile, left hip MRSA wound and right lateral heel cellulitis , atrial fibrillation, left atrial thrombus, acute on chronic anemia, and poor po intake. S/P trial of Marinol and Enlive supplements. Calorie count incomplete, as no meal tickets filled out. According to EMR, eating < 25% of his meals. reports he is only eating a few bites. Called and spoke to the patient's healthcare surrogate, Regina Newby regarding EGD with PEG tube, procedure, risks, benefits and she would like to proceed. - CDiff. He tested positive for C difficile, 027 (+) on 07/17. He is currently receiving oral vancomycin and his repeat CDiff was negative on 08/03/16. PLAN: - Plan for egd with peg tube placement - Obtain consents - NPO after MN - On Multiple abx - Client Customer Manager to make TF recommendations - Pt seen and examined by Dr. Choi and myself and this note is written on his behalf (Lee Ann Jaramillo) Physician Comments Patient seen and examined Agree with above Continue with current supportive care Monitor labs Plan for PEG placement tomorrow (Keith Choi MD) Lee Ann Jaramillo Aug 09, 2016 16:09 Kieth Choi MD Aug 10, 2016 00:07
--- NOTE | 2016-08-09 22:13 | HHI.PR ---
Subjective Remarks patient seen today around 2 PM. Patient awake, alert. Denies any pain. He says he is not hungry. Denies any pain. I discussed a PEG tube with him, and he is amenable Discussed PEG tube with over the phone. She says she is his power of real estate associate attorney. Discussed risks and benefits of PEG tube feeding. She opts for PEG tube. Objective Vital Signs Date Time Temp Pulse Resp B/P Pulse Ox O2 Delivery O2 Flow Rate FiO2 08/09/16 20:00 98.1 80 20 169/70 97 08/09/16 16:06 98.6 82 16 137/70 98 08/09/16 12:07 98.0 80 16 152/77 98 08/09/16 08:28 97 Nasal Cannula 2.00 08/09/16 08:08 97.2 74 16 165/70 97 08/09/16 08:07 97.2 74 16 165/70 97 08/09/16 08:00 70 08/09/16 08:00 Nasal Cannula 2.00 08/09/16 04:00 98.4 70 18 131/61 98 08/09/16 00:00 98.6 70 17 144/67 95 I/O 08/08/16 08/08/16 08/08/16 08/09/16 08/09/16 08/09/16 07:00 15:00 23:00 07:00 15:00 23:00 Intake Total 2196 ml 1125 ml 80 ml 2080 ml 1582 ml Output Total 300 ml 1150 ml 150 ml 550 ml 1100 ml Balance 1896 ml -25 ml -70 ml 1530 ml 482 ml Intake Oral 80 ml 0 ml 80 ml 80 ml 120 ml IV Total 2116 ml 1125 ml 2000 ml 1462 ml Output Urine Total 300 ml 1150 ml 150 ml 550 ml 1100 ml # Bowel Movements 1 1 Result Diagram: 08/09/16 0825 08/09/16 0825 Procedures 07/15/16left hip aspiration 08/03/16 left hip arthroplasty removal Objective Remarks GENERAL: Patient sitting up in bed. Awake and alert. Oriented to person and the fact that he is in the hospital. Disoriented to year, month, as before. Follows commands. no changes today. SKIN: Warm and dry. HEAD: Normocephalic. EYES: No scleral icterus. No injection or drainage. NECK: Supple, trachea midline. No JVD or lymphadenopathy. CARDIOVASCULAR: Regular rate and rhythm without murmurs, gallops, or rubs. RESPIRATORY: Breath sounds equal bilaterally. No accessory muscle use. GASTROINTESTINAL: Abdomen soft, non-tender, nondistended. MUSCULOSKELETAL: No cyanosis, or edema. Left leg with dry scabs. Left hip postoperative with drain removed. Dressing clean dry and intact. Unchanged. BACK: Nontender without obvious deformity. No CVA tenderness. A/P Assessment and Plan ==== 08/09/16 Hypokalemia. Replaced. Hypophosphatemia. Replaced. Continue to monitor. calorie count not filled out. Per nursing, patient has not been eating much of his meals at all. PEG tube discussed with who identifies herself as power of real estate associate attorney. She opts for feeding tube with PEG -hold Plavix for PEG tube. Should be restarted 24 hours later. 76 years old male //Sepsis secondary to C. difficile: Continue IV Flagyl, oral vancomycin for highly virulent strain of C. difficile. ff BMP. ID ff //Left hip MRSA wound and right lateral heel cellulitis: Appreciate orthopedic surgery recommendations. on IV vancomycin. ID ff seen by Plastics with wound care recommendations- -Status post removal of left hip arthroplasty 08/03. Appreciate surgical assistance. -Continue antibiotics as per infectious disease. On vancomycin. //Left hip fracture status post ORIF in May 2016. Appreciate orthopedic surgery recommendations. starting knee flexion contracture Continue physical therapy. -Status post removal of left hip arthroplasty 08/03. Appreciate surgical assistance. -we'll restart Plavix after PEG tube //Atrial fibrillation with RVR- rate better controlled.- now in SR on exam no chest pains Continue oral Cardizem CD 120 mg daily, metoprolol. Digoxin on hold. Plavix on hold. Heparin discontinued by cardiology. //Left atrial thrombus: Appreciate cardiology recommendations. Likely secondary to [place] in the past. Heparin discontinued by cardiology. //Chronic systolic congestive heart failure with mild exacerbation: Exacerbation has resolved. Lasix on hold. Ejection fraction 40% on echocardiogram. Continue beta anthony. Hypertension: Norvasc on hold. Continue metoprolol. //Anemia: -Postoperative on chronic. -08/05. Hemoglobin roughly stable at 7.2 postoperatively. Continue to monitor. 08/06 Hemoglobin low. Replacement of one unit ordered. Follow-up labs tomorrow. 08/07 rpt h/h improved. 08/08. Continue to monitor. //DAMIAN: This was probably a lab error. Initially lab returned with creatinine 1.8.. Repeat same day normal creatinine. //Poor oral intake: -08/05 Consult dietary for calorie count. Stop nicotine patch Add Marinol for appetite stimulation. -08/06 Calorie count started. Appetite improved on Marinol. Appreciate dietary assistance. 08/08. Increase Marinol. Calorie count to finish on 08/09. Patient may need PEG tube. //Peripheral vascular disease: Status post lower extremity bypass. //Dementia: Continue supportive care. //Diabetes mellitus: Monitor Accu-Cheks and cover with sliding scale insulin. //Hypomagnesemia: improved. [id number] 400 mg po bid //Hypokalemia: Continue to supplement potassium. ,. KCL 20 meq po daily //Hypocalcemia: Supplement calcium. //GI prophylaxis: Pepcid. Discharge Planning PEG tube placement tomorrow. Bulmaro Mendoza MD Aug 09, 2016 22:13
[2016-08-10] VITALS (11 sets, daily range): BP systolic 104–150; BP diastolic 56–95; PULSE 60–98; RESP 16–24; TEMP 97.2–98.5; O2SAT 96–100
[2016-08-10] MEDS: DEXT 5%-NACL 0.45% 1000 ML INJ 1,000 ML IV SCH ×3 (01:50→16:08)
[2016-08-10] MEDS: CEFEPIME INJ 2,000 MG in SODIUM CHLORIDE 0.9% INJ 100 ML IV SCH ×3 (01:51→16:07)
[2016-08-10] MEDS: CHLORHEXIDINE GLUCONATE 2 % 1 PACK (2 CLOTHS) TOP SCH (03:31)
[2016-08-10] MEDS: INSULIN ASPART SUPPLEMENTAL SCALE SQ SCH ×4 (06:33→21:00)
[2016-08-10] MEDS: COLLAGENASE OINT 30 GM TUBE TOP SCH ×2 (09:00→10:37)
[2016-08-10] MEDS: SODIUM CHLORIDE 0.9% FLUSH 5 ML FLUSH IVF SCH (09:00)
[2016-08-10] MEDS: DRONABINOL 2.5 MG CAP PO SCH ×2 (10:27→15:45)
[2016-08-10] MEDS: POTASSIUM CHLORIDE 20 MEQ CONTROLLED RELEASE TAB PO SCH (10:36)
[2016-08-10] MEDS: MAGNESIUM OXIDE 400 MG TAB G-TUBE SCH (10:36)
[2016-08-10] MEDS: DILTIAZEM-CD 120 MG CAP ER PO SCH (10:36)
[2016-08-10] MEDS: CALCIUM/VITAMIN D 250 MG/125 U TAB PO SCH (10:37)
[2016-08-10] MEDS: ATORVASTATIN 20 MG TAB PO SCH (10:37)
[2016-08-10] MEDS: FAMOTIDINE 20 MG TAB PO SCH (10:37)
[2016-08-10] MEDS: METOPROLOL TARTRATE 25 MG TAB PO SCH (10:37)
[2016-08-10] MEDS: NYSTATIN SUSP 500,000 U/5 ML CUP SWISH-SWAL SCH ×3 (10:37→17:39)
[2016-08-10] MEDS: VANCOMYCIN 500 MG VIAL (FOR ORAL USE ONLY) PO SCH ×3 (10:37→17:39)
[2016-08-10] MEDS: POVIDONE IODINE 10% OINT 30 GM TUBE TOPICAL SCH (10:38)
[2016-08-10] MEDS: ZINC OXIDE 20% OINT 30 GM TUBE TOPICAL SCH (10:38)
[2016-08-10] MEDS: SODIUM HYPOCHLORITE 0.25% 500 ML BTL TOPICAL SCH (10:38)
[2016-08-10] MEDS ORDERED: PROPOFOL 200 MG/20 ML AMP IV ONE (14:15)
--- NOTE | 2016-08-10 14:29 | PD.PROCEDR ---
GI Procedure REFERRING PHYSICIAN Urszula PROCEDURE PERFORMED EGD with PEG placement INDICATION FOR PROCEDURE Poor oral intake PROCEDURE: The procedure, risks and benefits were discussed with Mr. Newby and informed consent was obtained. Anesthesia sedated him with Diprivan. He was placed in the left lateral decubitus position. EGD: The Pentax videoscope was introduced through the oropharynx and advanced to the second portion of the duodenum under direct visualization. Retroflexion was performed in the stomach. FINDINGS: The esophagus there was distal esophageal mucosal erythema with some friability representing probable underlying esophagitis most likely secondary to reflux The stomach this appeared to be unremarkable and within normal limits except for a small hiatal hernia The duodenum this was normal Following the evaluation of the stomach and the duodenum the stomach was insufflated with air and the area of PEG placement was identified through indentation and transillumination the area was prepped and draped in usual fashion 5 cc of lidocaine were injected locally a small incision was made then an Angiocath was passed into the stomach through which a guidewire was passed this was retrieved with the scope into that a PEG tube was attached and pulled into place and thereafter secured in usual fashion The patient tolerated procedure well and there are no immediate complications ESTIMATED BLOOD LOSS: None SPECIMENS REMOVED: None COMPLICATIONS: None IMPRESSION: Reflux esophagitis Small hiatal hernia Successful PEG placement PLAN: PLAN: 1. May use PEG tube for medications today 2. May start feeding tomorrow 3. May obtain nutritional consult for tube feeding 4. Flush tube with 50 cc of water every 4-6 hours 5. Always flush tube after feedings 6. Apply abdominal binder as necessary 7. Clamp G-tube after use and flush. Keith Choi MD Aug 10, 2016 14:29
[2016-08-10] MEDS: VANCOMYCIN INJ 750 MG in SODIUM CHLOR 0.9% 250 ML INJ 250 ML IV SCH (16:00)
--- NOTE | 2016-08-10 23:58 | HHI.PR ---
Subjective Remarks patient seen today around 4 PM. Had PEG tube placed. He denies any pain. Denies any chest pain or shortness of breath. Objective Vital Signs Date Time Temp Pulse Resp B/P Pulse Ox O2 Delivery O2 Flow Rate FiO2 08/10/16 19:48 97.7 79 16 104/65 100 08/10/16 16:00 97.4 60 16 113/56 100 08/10/16 14:39 67 18 91 115/61 08/10/16 14:34 67 18 91 121/59 08/10/16 14:29 98.0 65 18 90 127/67 08/10/16 13:52 Nasal Cannula 2 08/10/16 13:00 97.5 69 18 100 127/95 08/10/16 12:00 97.5 71 20 127/94 98 08/10/16 08:00 97.4 77 24 136/82 97 08/10/16 08:00 68 08/10/16 08:00 Nasal Cannula 2.00 08/10/16 07:28 97 Nasal Cannula 2.00 08/10/16 04:00 98.4 74 20 150/77 96 08/10/16 00:24 98 08/10/16 00:24 Nasal Cannula 2.00 21 08/10/16 00:00 98.5 71 20 149/77 96 I/O 08/09/16 08/09/16 08/09/16 08/10/16 08/10/16 08/10/16 07:00 15:00 23:00 07:00 15:00 23:00 Intake Total 2080 ml 1582 ml 120 ml 1227 ml 100 ml 0 ml Output Total 550 ml 1100 ml 600 ml 700 ml 1450 ml 600 ml Balance 1530 ml 482 ml -480 ml 527 ml -1350 ml -600 ml Intake Oral 80 ml 120 ml 120 ml 0 ml IV Total 2000 ml 1462 ml 1227 ml 100 ml Output Urine Total 550 ml 1100 ml 600 ml 700 ml 1450 ml 600 ml # Bowel Movements 1 0 1 1 0 Result Diagram: 08/09/1625 08/09/16 0825 Procedures 07/15/16left hip aspiration 08/03/16 left hip arthroplasty removal Objective Remarks GENERAL: Patient sitting up in bed. Awake and alert. Oriented to person and the fact that he is in the hospital. Disoriented to year, month, as before. Follows commands. SKIN: Warm and dry. HEAD: Normocephalic. EYES: No scleral icterus. No injection or drainage. NECK: Supple, trachea midline. No JVD or lymphadenopathy. CARDIOVASCULAR: Regular rate and rhythm without murmurs, gallops, or rubs. RESPIRATORY: Breath sounds equal bilaterally. No accessory muscle use. GASTROINTESTINAL: Abdomen soft, non-tender, nondistended. PEG tube placed. MUSCULOSKELETAL: No cyanosis, or edema. Left leg with dry scabs. Left hip postoperative with drain removed. Dressing clean dry and intact. Unchanged. BACK: Nontender without obvious deformity. No CVA tenderness. A/P Assessment and Plan ==== 08/10/16 PEG tube placed today. start tube feeds tomorrow. Start Plavix 08/12. follow-up potassium 08/11. ID following. " Continue Vancomycin IV until 08/28/16. Continue Vancomycin PO for c. diff. Cont cefepime for Proteus prosthetic hip infx anticipate 6 wks of abx for Proteus prosthetic joint infx" 76 years old male //Sepsis secondary to C. difficile: Continue IV Flagyl, oral vancomycin for highly virulent strain of C. difficile. ff BMP. ID ff //Left hip MRSA wound and right lateral heel cellulitis: Appreciate orthopedic surgery recommendations. on IV vancomycin. ID ff seen by Plastics with wound care recommendations- -Status post removal of left hip arthroplasty 08/03. Appreciate surgical assistance. -Continue antibiotics as per infectious disease. On vancomycin. //Left hip fracture status post ORIF in May 2016. Appreciate orthopedic surgery recommendations. starting knee flexion contracture Continue physical therapy. -Status post removal of left hip arthroplasty 08/03. Appreciate surgical assistance. -we'll restart Plavixon 08/12. Hold for hip arthroplasty, PEG tube. //Atrial fibrillation with RVR- rate better controlled.- now in SR on exam no chest pains Continue oral Cardizem CD 120 mg daily, metoprolol. Digoxin on hold. Plavix on hold. Heparin discontinued by cardiology. //Left atrial thrombus: Appreciate cardiology recommendations. Likely secondary to [place] in the past. Heparin discontinued by cardiology. //Chronic systolic congestive heart failure with mild exacerbation: Exacerbation has resolved. Lasix on hold. Ejection fraction 40% on echocardiogram. Continue beta anthony. Hypertension: Norvasc on hold. Continue metoprolol. //Anemia: -Postoperative on chronic. -08/05. Hemoglobin roughly stable at 7.2 postoperatively. Continue to monitor. 08/06 Hemoglobin low. Replacement of one unit ordered. Follow-up labs tomorrow. 08/07 rpt h/h improved. 08/08. Continue to monitor. //Poor oral intake: -08/05 Consult dietary for calorie count. Stop nicotine patch Add Marinol for appetite stimulation. -08/06 Calorie count started. Appetite improved on Marinol. Appreciate dietary assistance. 08/08. Increase Marinol. Calorie count to finish on 08/09. Patient may need PEG tube. -08/10. PEG tube placed //Peripheral vascular disease: Status post lower extremity bypass. start Plavix 08/12. //Dementia: Continue supportive care. //Diabetes mellitus: Monitor Accu-Cheks and cover with sliding scale insulin. //Hypomagnesemia: improved. Iv9lerr 400 mg po bid //Hypokalemia: Continue to supplement potassium. ,. KCL 20 meq po daily //Hypocalcemia: Supplement calcium. //GI prophylaxis: Pepcid. Discharge Planning PEG tube placed. -requires IV and by mouth vancomycin. On cefepime infectious disease following Patient has been accepted to [facility] when medically stable. Bulmaro Mendoza MD Aug 10, 2016 23:58
[2016-08-11] VITALS (8 sets, daily range): BP systolic 130–145; BP diastolic 60–76; PULSE 74–87; RESP 16–32; TEMP 97.3–97.9; O2SAT 97–100
[2016-08-11] MEDS ORDERED: POTASSIUM CHLORIDE 25 MEQ EFFERVESCENT TAB TUBE ONE
[2016-08-11] MEDS: MAGNESIUM OXIDE 400 MG TAB G-TUBE SCH ×3 (00:15→22:32)
[2016-08-11] MEDS: SODIUM CHLORIDE 0.9% FLUSH 5 ML FLUSH IVF SCH ×3 (00:16→21:00)
[2016-08-11] MEDS: FAMOTIDINE 20 MG TAB PO SCH ×3 (00:16→22:32)
[2016-08-11] MEDS: VANCOMYCIN 500 MG VIAL (FOR ORAL USE ONLY) PO SCH ×5 (00:16→22:33)
[2016-08-11] MEDS: METOPROLOL TARTRATE 25 MG TAB PO SCH ×3 (00:16→22:32)
[2016-08-11] MEDS: NYSTATIN SUSP 500,000 U/5 ML CUP SWISH-SWAL SCH ×5 (00:17→22:33)
[2016-08-11] MEDS: CEFEPIME INJ 2,000 MG in SODIUM CHLORIDE 0.9% INJ 100 ML IV SCH ×3 (01:27→18:15)
[2016-08-11] MEDS: DEXT 5%-NACL 0.45% 1000 ML INJ 1,000 ML IV SCH ×4 (01:27→22:34)
[2016-08-11] MEDS: CHLORHEXIDINE GLUCONATE 2 % 1 PACK (2 CLOTHS) TOP SCH (04:00)
[2016-08-11] MEDS: INSULIN ASPART SUPPLEMENTAL SCALE SQ SCH ×4 (07:00→21:00)
[2016-08-11 07:41] LABS: AUTOMATED NEUTROPHIL # 12.7 TH/MM3 (1.8-7.7); BASOPHIL % 0.2 % (0.0-2.0); EOSINOPHIL % 0.3 % (0.0-4.0); HEMATOCRIT 30.4 % (39.0-51.0); HEMO FLAGS DIFF FINAL; LYMPH % 15.1 % (9.0-44.0); LYMPHOCYTE # 2.5 TH/MM3 (1.0-4.8); MEAN CELL VOLUME 90.2 FL (80.0-100.0); MEAN CORPUSCULAR HEMOGLOBIN 28.3 PG (27.0-34.0); MEAN CORPUSCULAR HGB CONC 31.4 % (32.0-36.0); MONO % 7.1 % (0.0-8.0); NEUT % 77.3 % (16.0-70.0); PLATELET COUNT 419 TH/MM3 (150-450); RED BLOOD COUNT 3.37 MIL/MM3 (4.50-5.90); RED CELL DISTRIBUTION WIDTH 17.4 % (11.6-17.2); WHITE BLOOD COUNT 16.5 TH/MM3 (4.0-11.0)
--- NOTE | 2016-08-11 07:50 | PD.ORT.PN ---
Subjective Post Op Day #: 8 Subjective Remarks 76yo male s/p left bipolar arthroplasty for femoral neck fracture, s/p bipolar hip resection. His original procedure was delayed several weeks secondary to renal issues and aspiration pneumonia. Pt. d/c'd to rehab but sent home after ins. coverage . Rest of hx not clear. Pt readmitted recently with diabetic ulcer, generalized decline in health and decubiti including operative site. He has not had out patient f/u. Unclear as to functional status as he has dementia and no family available. Due to continued flexion contracture with failed conservative treatment including aggressive rehabilitation, bracing, joint aspiration under IR guidance and manipulation under anesthesia patient recently underwent a bipolar hip resection. See operative note for details. Pt is tolerating very procedure well. Admits to controlled left hip pain. Left hip is no longer in flexion contracture. Pt laying in bed, pleasantly confused, hip abductor pillow in place. History unreliable from patient. No other complaints noted. Objective Vitals Vital Signs Date Time Temp Pulse Resp B/P Pulse Ox O2 Delivery O2 Flow Rate FiO2 08/11/16 04:03 97.3 77 16 132/64 100 08/10/16 23:08 97.2 72 16 132/75 100 08/10/16 21:00 Nasal Cannula 2.00 21 08/10/16 21:00 69 08/10/16 19:48 97.7 79 16 104/65 100 08/10/16 16:00 97.4 60 16 113/56 100 08/10/16 14:39 67 18 91 115/61 08/10/16 14:34 67 18 91 121/59 08/10/16 14:29 98.0 65 18 90 127/67 08/10/16 13:52 Nasal Cannula 2 08/10/16 13:00 97.5 69 18 100 127/95 08/10/16 12:00 97.5 71 20 127/94 98 08/10/16 08:00 97.4 77 24 136/82 97 08/10/16 08:00 68 08/10/16 08:00 Nasal Cannula 2.00 I/O 08/10/16 08/10/16 08/10/16 08/11/16 08/11/16 08/11/16 07:00 15:00 23:00 07:00 15:00 23:00 Intake Total 1227 ml 100 ml 0 ml 0 ml Output Total 700 ml 1450 ml 600 ml 600 ml Balance 527 ml -1350 ml -600 ml -600 ml Intake Oral 0 ml 0 ml IV Total 1227 ml 100 ml Output Urine Total 700 ml 1450 ml 600 ml 600 ml # Bowel Movements 1 1 0 1 Result Diagram: 08/09/16 0825 08/09/16 0825 Imaging Last Impressions Hip X-Ray 08/03/16 0000 Signed Impressions: Service Date/Time: Wednesday, August 03, 2016 20:06 - CONCLUSION: Dislocated bipolar hip arthroplasty. No perceptible fracture. Thor Donahue MD Hip Aspiration/Injection 07/15/16 0000 Signed Impressions: Service Date/Time: July 15:55 - CONCLUSION: Uncomplicated aspiration as above. Aniceto Vasquez MD Chest X-Ray 07/12/161957 Signed Impressions: Service Date/Time: Tuesday, July 12, 2016 20:23 - CONCLUSION: 1. Postoperative CABG. Remote granulomatous disease. No effusion or pneumothorax. Tony Galloway MD Pelvis X-Ray 07/12/16 0000 Signed Impressions: Service Date/Time: Tuesday, July 12, 2016 20:17 - CONCLUSION: 1. Postoperative left total hip replacement. Osteopenia. No acute bony abnormalities. Tony Galloway MD Procedures Left hip resection arthroplasty 08/03/16 Objective Remarks LLE: Pt awake, alert, pleasantly confused. Dressing dry and intact, mild saturation noted on proximal portion. Dressing removed for examination - brown tinged milky discharge noted at proximal portion. No surrounding erythema or heat noted. Does not look cellulitic in nature. Mild swelling, 1+ pitting edema noted over incision area and B/L ankles/feet. Abduction pillow intact. Exam limited by the current nursing care. Assessment & Plan Ortho Post Op Day #: 8 Problem List: (1) Left hip prosthetic joint infection (2) Dislocation of internal left hip prosthesis (3) Sepsis (4) PVD (peripheral vascular disease) (5) Non healing left heel wound (6) Type 2 diabetes mellitus Assessment and Plan Ortho status stable POD #8 (Left hip resection arthroplasty 08/03/16). Continue abduction pillow while in bed. May remove it as needed for hygeine, dressing changes and OOB activity. NO hip precautions, may position as needed. Progress OOB activity if medically able. D/C planning - most likely to SNF. Clear from an orthopedic standpoint. Continue dressing changes left hip. Wound care to continue management of left hip incision/ulceration. Continue wet to dry dressings over debridement of left hip and dress sutured area with alcohol/ xeroform/4x4. Wound drainage to be send for culture, okay to let proximal portion drain. Appreciate medical team and infectious disease involvement in patient's care. Mary Ellen Pike Aug 11, 2016 07:50
[2016-08-11 07:57] LABS: BICARBONATE 24.3 MEQ/L (21.0-32.0); MAGNESIUM 1.8 MG/DL (1.5-2.5); POTASSIUM 3.7 MEQ/L (3.5-5.1)
[2016-08-11] MEDS: CALCIUM/VITAMIN D 250 MG/125 U TAB PO SCH (08:49)
[2016-08-11] MEDS: ATORVASTATIN 20 MG TAB PO SCH (08:49)
[2016-08-11] MEDS: DILTIAZEM-CD 120 MG CAP ER PO SCH (08:49)
[2016-08-11] MEDS: POTASSIUM CHLORIDE 20 MEQ CONTROLLED RELEASE TAB PO SCH (08:49)
[2016-08-11] MEDS: COLLAGENASE OINT 30 GM TUBE TOP SCH (08:50)
[2016-08-11] MEDS: POVIDONE IODINE 10% OINT 30 GM TUBE TOPICAL SCH (08:50)
[2016-08-11] MEDS: ZINC OXIDE 20% OINT 30 GM TUBE TOPICAL SCH (08:51)
[2016-08-11] MEDS: SODIUM HYPOCHLORITE 0.25% 500 ML BTL TOPICAL SCH (08:51)
[2016-08-11] MEDS ORDERED: PHARMACY ORDERED LAB XX ONE (12:45)
--- NOTE | 2016-08-11 13:31 | HHI.PR ---
Subjective Remarks f/u diarrhea diarrhea improving, no stomach pain, no n/v, no fever Objective Vitals Vital Signs Date Time Temp Pulse Resp B/P Pulse Ox O2 Delivery O2 Flow Rate FiO2 08/11/16 12:00 97.9 74 32 136/63 100 08/11/16 10:33 97 Nasal Cannula 2.00 08/11/16 08:00 97.5 87 24 145/76 100 08/11/16 04:03 97.3 77 16 132/64 100 08/10/16 23:08 97.2 72 16 132/75 100 08/10/16 21:00 Nasal Cannula 2.00 21 08/10/16 21:00 69 08/10/16 19:48 97.7 79 16 104/65 100 08/10/16 16:00 97.4 60 16 113/56 100 08/10/16 14:39 67 18 91 115/61 08/10/16 14:34 67 18 91 121/59 08/10/16 14:29 98.0 65 18 90 127/67 08/10/16 13:52 Nasal Cannula 2 I/O 08/10/16 08/10/16 08/10/16 08/11/16 08/11/16 08/11/16 07:00 15:00 23:00 07:00 15:00 23:00 Intake Total 1227 ml 100 ml 0 ml 0 ml Output Total 700 ml 1450 ml 600 ml 600 ml Balance 527 ml -1350 ml -600 ml -600 ml Intake Oral 0 ml 0 ml IV Total 1227 ml 100 ml Output Urine Total 700 ml 1450 ml 600 ml 600 ml # Bowel Movements 1 1 0 1 Result Diagram: 08/11/16 0708 08/11/16 0708 Objective Remarks GENERAL: Patient sitting up in bed. Awake and alert. Oriented to person and the fact that he is in the hospital. Disoriented to year, month, as before. Follows commands. SKIN: Warm and dry. NECK: Supple, trachea midline. No JVD or lymphadenopathy. CARDIOVASCULAR: Regular rate and rhythm without murmurs, gallops, or rubs. RESPIRATORY: Breath sounds equal bilaterally. No accessory muscle use. GASTROINTESTINAL: Abdomen soft, non-tender, nondistended. PEG tube placed. MUSCULOSKELETAL: No cyanosis, or edema. Left leg with dry scabs. Left hip postoperative with drain removed. Dressing clean dry and intact. Unchanged. BACK: Nontender without obvious deformity. No CVA tenderness. Procedures 07/15/16 left hip aspiration A/P Problem List: (1) Atrial fibrillation with RVR ICD Code: I48.91 Status: Acute (2) Sepsis ICD Code: A41.9 Status: Acute (3) Thrombus of left atrial appendage without antecedent myocardial infarction ICD Code: I51.3 Status: Acute (4) HTN (hypertension) ICD Code: I10 Status: Chronic (5) Type 2 diabetes mellitus ICD Code: E11.9 Status: Chronic (6) Hypocalcemia ICD Code: E83.51 Status: Resolved (7) Hypomagnesemia ICD Code: E83.42 Status: Acute (8) Hypokalemia ICD Code: E87.6 Status: Resolved (9) Chronic systolic CHF (congestive heart failure) ICD Code: I50.22 Status: Chronic (10) Fracture of left hip requiring operative repair ICD Code: S72.002A Status: Acute (11) Hx of coronary artery disease ICD Code: Z86.79 Status: Chronic (12) C. difficile colitis ICD Code: A04.7 Status: Acute Assessment and Plan 76 years old male //Sepsis secondary to C. difficile: Continue oral vancomycin. //Left hip MRSA wound and right lateral heel cellulitis: Appreciate orthopedic surgery recommendations. on IV vancomycin. ID ff seen by Plastics with wound care recommendations- -Status post removal of left hip arthroplasty 08/03. Appreciate surgical assistance. -Continue antibiotics as per infectious disease. On vancomycin. Possible discharge tomorrow. Continue oral vancomycin for C. difficile, continue vancomycin orally 2 weeks after last day of antibiotics, discussed with infectious disease //Left hip fracture status post ORIF in May 2016. Appreciate orthopedic surgery recommendations. starting knee flexion contracture Continue physical therapy. -Status post removal of left hip arthroplasty 08/03. Appreciate surgical assistance. -we'll restart Plavixon 08/12. Hold for hip arthroplasty, PEG tube. //Atrial fibrillation with RVR- rate better controlled.- now in SR on exam no chest pains Continue oral Cardizem CD 120 mg daily, metoprolol. Digoxin on hold. Plavix on hold. Heparin discontinued by cardiology. //Left atrial thrombus: Appreciate cardiology recommendations. Likely secondary to [place] in the past. Heparin discontinued by cardiology. //Chronic systolic congestive heart failure with mild exacerbation: Exacerbation has resolved. Lasix on hold. Ejection fraction 40% on echocardiogram. Continue beta anthony. Hypertension: Norvasc on hold. Continue metoprolol. //Anemia: -Postoperative on chronic. -08/05. Hemoglobin roughly stable at 7.2 postoperatively. Continue to monitor. 08/06 Hemoglobin low. Replacement of one unit ordered. Follow-up labs tomorrow. 08/07 rpt h/h improved. 08/08. Continue to monitor. //Poor oral intake: -08/05 Consult dietary for calorie count. Stop nicotine patch Add Marinol for appetite stimulation. -08/06 Calorie count started. Appetite improved on Marinol. Appreciate dietary assistance. 08/08. Increase Marinol. Calorie count to finish on 08/09. Patient may need PEG tube. -08/10. PEG tube placed //Peripheral vascular disease: Status post lower extremity bypass. start Plavix 08/12. //Dementia: Continue supportive care. //Diabetes mellitus: Monitor Accu-Cheks and cover with sliding scale insulin. //Hypomagnesemia: improved. [id number] 400 mg po bid //Hypokalemia: Continue to supplement potassium. ,. KCL 20 meq po daily //Hypocalcemia: Supplement calcium. //GI prophylaxis: Pepcid. Discharge Planning Discharge Planning PEG tube placed. -requires IV and by mouth vancomycin. On cefepime infectious disease following Patient has been accepted to [facility] when medically stable. Possible discharge tomorrow. Problem Qualifiers (1) Type 2 diabetes mellitus: Qualified Code: E11.51 - Type 2 diabetes mellitus with diabetic peripheral angiopathy without gangrene, without long-term current use of insulin Ann Marie Rome MD Aug 11, 2016 13:31 Ann Marie Rome MD Aug 11, 2016 13:31
[2016-08-11] MEDS: DRONABINOL 5 MG CAP PO SCH ×2 (14:50→16:00)
--- NOTE | 2016-08-11 15:21 | HHI.IDPN ---
Subjective Subjective Remarks afebrile doing OK 2 BMs/day Antibiotics po vanco iv vanco cefepime Allergies: Coded Allergies: [place] Cheese (Verified Allergy, Unknown, 05/08/16) *MDRO Multi-Drug Resistant Organism (Verified Adverse Reaction, Unknown, MRSA, 07/15/16) MRSA (hip) - 07/12/16 Objective . Vital Signs Date Time Temp Pulse Resp B/P Pulse Ox O2 Delivery O2 Flow Rate FiO2 08/11/16 12:00 97.9 74 32 136/63 100 08/11/16 10:33 97 Nasal Cannula 2.00 08/11/16 08:00 97.5 87 24 145/76 100 08/11/16 04:03 97.3 77 16 132/64 100 08/10/16 23:08 97.2 72 16 132/75 100 08/10/16 21:00 Nasal Cannula 2.00 21 08/10/16 21:00 69 08/10/16 19:48 97.7 79 16 104/65 100 08/10/16 16:00 97.4 60 16 113/56 100 08/10/16 08/10/16 08/11/16 15:00 23:00 07:00 Intake Total 100 ml 0 ml 0 ml Output Total 1450 ml 600 ml 600 ml Balance -1350 ml -600 ml -600 ml Intake Oral 0 ml 0 ml IV Total 100 ml Output Urine Total 1450 ml 600 ml 600 ml # Bowel Movements 1 0 1 . Laboratory Tests Test 08/11/16 07:08 White Blood Count 16.5 TH/MM3 Red Blood Count 3.37 MIL/MM3 Hemoglobin 9.5 GM/DL Hematocrit 30.4 % Mean Corpuscular Volume 90.2 FL Mean Corpuscular Hemoglobin 28.3 PG Mean Corpuscular Hemoglobin 31.4 % Concent Red Cell Distribution Width 17.4 % Platelet Count 419 TH/MM3 Mean Platelet Volume 8.8 FL Neutrophils (%) (Auto) 77.3 % Lymphocytes (%) (Auto) 15.1 % Monocytes (%) (Auto) 7.1 % Eosinophils (%) (Auto) 0.3 % Basophils (%) (Auto) 0.2 % Neutrophils # (Auto) 12.7 TH/MM3 Lymphocytes # (Auto) 2.5 TH/MM3 Monocytes # (Auto) 1.2 TH/MM3 Eosinophils # (Auto) 0.0 TH/MM3 Basophils # (Auto) 0.0 TH/MM3 CBC Comment DIFF FINAL Differential Comment Laboratory Tests Test 08/11/16 07:08 Sodium Level 145 MEQ/L Potassium Level 3.7 MEQ/L Chloride Level 110 MEQ/L Carbon Dioxide Level 24.3 MEQ/L Anion Gap 11 MEQ/L Blood Urea Nitrogen 6 MG/DL Creatinine 0.73 MG/DL Estimat Glomerular Filtration 104 ML/MIN Rate Random Glucose 134 MG/DL Calcium Level 7.5 MG/DL Phosphorus Level 1.9 MG/DL Magnesium Level 1.8 MG/DL Albumin 1.4 GM/DL Imaging Last Impressions Hip X-Ray 08/03/16 0000 Signed Impressions: Service Date/Time: Wednesday, August 03, 2016 20:06 - CONCLUSION: Dislocated bipolar hip arthroplasty. No perceptible fracture. Thor Donahue MD Hip Aspiration/Injection 07/15/16 0000 Signed Impressions: Service Date/Time: July 15:55 - CONCLUSION: Uncomplicated aspiration as above. Aniceto Vasquez MD Chest X-Ray 07/12/[id number] Signed Impressions: Service Date/Time: Tuesday, July 12, 2016 20:23 - CONCLUSION: 1. Postoperative CABG. Remote granulomatous disease. No effusion or pneumothorax. Tony Galloway MD Pelvis X-Ray 07/12/16 0000 Signed Impressions: Service Date/Time: Tuesday, July 12, 2016 20:17 - CONCLUSION: 1. Postoperative left total hip replacement. Osteopenia. No acute bony abnormalities. Tony Galloway MD Physical Exam GENERAL: No acute distress. HEENT: PERRL. EOMI, No icterus. NECK: Supple, no adenopathy. LUNGS: Clear CARDIAC: Regular rate and rhythm. ABDOMEN: (+) BS, Soft, non tender. MUSCULOSKELETAL: R. hip wound with some drainage : Scrotal edema present EXTREMITIES: No CCE. Skin tear and excoriated lesions at extremities - healing , dry Edema, drainage arounf L hip incision Dressing in place w serous dc SKIN: No rash. Assessment & Plan Remarks ASSESSMENT: R. hip wound infection - MRSA. Post R. hip arthroplasty. New issue - pt is growing a Proteus from L hip wound - emilia Avila Gains: pt has all components of prosthesis removed - no plan for re-implantation for now C. diff colitis, repeat C.diff negative Leukocytosis - Persisting, worsening PLAN. Continue Vancomycin IV until 08/28/16 Continue Vancomycin PO for c. diff for 2 weeks after systemic abx stopped Cont cefepime for Proteus prosthetic hip infx x 6 weeks; anticipate 6 wks of abx for Proteus prosthetic joint infx (other options: levaquine 750 daily) Zelda Nation MD Aug 11, 2016 15:21
--- NOTE | 2016-08-11 15:52 | HHI.GIFU ---
Subjective Remarks Patient is resting in bed, PEG site looks good, flushing with no problem, TF is pending (Blossom Zaidi) Objective Vitals I&O Vital Signs Date Time Temp Pulse Resp B/P Pulse Ox O2 Delivery O2 Flow Rate FiO2 08/11/16 12:00 97.9 74 32 136/63 100 08/11/16 10:33 97 Nasal Cannula 2.00 08/11/16 08:00 Nasal Cannula 2.00 08/11/16 08:00 97.5 87 24 145/76 100 08/11/16 04:03 97.3 77 16 132/64 100 08/10/16 23:08 97.2 72 16 132/75 100 08/10/16 21:00 Nasal Cannula 2.00 21 08/10/16 21:00 69 08/10/16 19:48 97.7 79 16 104/65 100 08/10/16 16:00 97.4 60 16 113/56 100 I/O 08/10/16 08/10/16 08/10/16 08/11/16 08/11/16 08/11/16 07:00 15:00 23:00 07:00 15:00 23:00 Intake Total 1227 ml 100 ml 0 ml 0 ml 120 ml Output Total 700 ml 1450 ml 600 ml 600 ml 100 ml Balance 527 ml -1350 ml -600 ml -600 ml 20 ml Intake Oral 0 ml 0 ml 120 ml IV Total 1227 ml 100 ml Output Urine Total 700 ml 1450 ml 600 ml 600 ml 100 ml # Bowel Movements 1 1 0 1 0 Laboratory Laboratory Tests Test 08/11/16 07:08 White Blood Count 16.5 Red Blood Count 3.37 Hemoglobin 9.5 Hematocrit 30.4 Mean Corpuscular Volume 90.2 Mean Corpuscular Hemoglobin 28.3 Mean Corpuscular Hemoglobin 31.4 Concent Red Cell Distribution Width 17.4 Platelet Count 419 Mean Platelet Volume 8.8 Neutrophils (%) (Auto) 77.3 Lymphocytes (%) (Auto) 15.1 Monocytes (%) (Auto) 7.1 Eosinophils (%) (Auto) 0.3 Basophils (%) (Auto) 0.2 Neutrophils # (Auto) 12.7 Lymphocytes # (Auto) 2.5 Monocytes # (Auto) 1.2 Eosinophils # (Auto) 0.0 Basophils # (Auto) 0.0 CBC Comment DIFF FINAL Differential Comment Sodium Level 145 Potassium Level 3.7 Chloride Level 110 Carbon Dioxide Level 24.3 Anion Gap 11 Blood Urea Nitrogen 6 Creatinine 0.73 Estimat Glomerular Filtration 104 Rate Random Glucose 134 Calcium Level 7.5 Phosphorus Level 1.9 Magnesium Level 1.8 Albumin 1.4 Date/Time Procedure Status Source Growth 08/07/16 22:00 Urine Culture - Final Complete Urine Catheterized Urine NO GROWTH IN 48 HOURS. Imaging Last Impressions Hip X-Ray 08/03/16 0000 Signed Impressions: Service Date/Time: Wednesday, August 03, 2016 20:06 - CONCLUSION: Dislocated bipolar hip arthroplasty. No perceptible fracture. Thor Donahue MD Hip Aspiration/Injection 07/15/16 0000 Signed Impressions: Service Date/Time: July 15:55 - CONCLUSION: Uncomplicated aspiration as above. Aniceto Vasquez MD Chest X-Ray 07/12/161957 Signed Impressions: Service Date/Time: Tuesday, July 12, 2016 20:23 - CONCLUSION: 1. Postoperative CABG. Remote granulomatous disease. No effusion or pneumothorax. Tony Galloway MD Pelvis X-Ray 07/12/16 0000 Signed Impressions: Service Date/Time: Tuesday, July 12, 2016 20:17 - CONCLUSION: 1. Postoperative left total hip replacement. Osteopenia. No acute bony abnormalities. Tony Galloway MD Physical Exam HEENT: normocephalic; atraumatic; no jaundice. NECK: Neck is supple, no JVD, no lymphadenopathy. CHEST: unlabored, diminished CARDIAC: Regular rate and rhythm with no murmur gallop or rubs. ABDOMEN: Soft, nondistended, nontender; no hepatosplenomegaly; bowel sounds are present in all four quadrants. PEG tube EXTREMITIES: No clubbing, cyanosis, or edema. SKIN: Normal; no rash; no jaundice. MOBILE HOME TECHNICIAN: Alert, confused . (Blossom Zaidi) Assessment and Plan Plan ASSESSMENT: - Poor po intake, Protein malnutrition. S/P EGD/PEG tube on (08/10/16) ----> reflux esophagitis, small hiatal hernia, successful PEG tube placement - CDiff. He tested positive for C difficile, 027 (+) on 07/17. He is currently receiving oral vancomycin and his repeat CDiff was negative on 08/03/16. PLAN: - Okay to start TF per dietary recommendation - Flush every shift - GI will sign off - Pt seen and examined by Dr. Choi and myself and this note is written on his behalf (Blossom Zaidi) Physician Comments Patient seen and examined Agree with above Continue with current supportive care Monitor labs We will sign off (Keith Choi MD) Blossom Zaidi Aug 11, 2016 15:52 Keith Choi MD Aug 11, 2016 21:42
[2016-08-11] MEDS: VANCOMYCIN INJ 750 MG in SODIUM CHLOR 0.9% 250 ML INJ 250 ML IV SCH (17:00)
[2016-08-12] VITALS: BP 149/99; PULSE 62; RESP 18; TEMP 98; O2SAT 98
[2016-08-12] MEDS: CEFEPIME INJ 2,000 MG in SODIUM CHLORIDE 0.9% INJ 100 ML IV SCH ×3 (00:06→17:00)
[2016-08-12] MEDS: CHLORHEXIDINE GLUCONATE 2 % 1 PACK (2 CLOTHS) TOP SCH (03:16)
[2016-08-12 04:00] VITALS: BP 137/65; PULSE 78; RESP 18; TEMP 97.7; O2SAT 96
[2016-08-12] MEDS: INSULIN ASPART SUPPLEMENTAL SCALE SQ SCH ×3 (05:36→16:00)
[2016-08-12 08:00] VITALS: BP 152/69; PULSE 76; RESP 20; TEMP 97.7; O2SAT 96
[2016-08-12 09:00] VITALS: PULSE 59
[2016-08-12] MEDS: SODIUM HYPOCHLORITE 0.25% 500 ML BTL TOPICAL SCH (09:00)
[2016-08-12] MEDS: POVIDONE IODINE 10% OINT 30 GM TUBE TOPICAL SCH (09:00)
[2016-08-12] MEDS ORDERED: CLOPIDOGREL 75 MG TAB PO SCH (09:00)
[2016-08-12] MEDS: DEXT 5%-NACL 0.45% 1000 ML INJ 1,000 ML IV SCH (09:45)
[2016-08-12] MEDS ORDERED: AMBI5TAB PO (10:09)
[2016-08-12] MEDS ORDERED: HYDR-3516 PO (10:09)
[2016-08-12] MEDS ORDERED: CARD120C4 PO (10:09)
[2016-08-12] MEDS ORDERED: DAKINSHST TOPICAL (10:09)
[2016-08-12] MEDS ORDERED: DRON5CAP PO (10:09)
[2016-08-12] MEDS ORDERED: FAMO20TA2 PO (10:09)
[2016-08-12] MEDS ORDERED: METO25TA3 PO (10:09)
[2016-08-12] MEDS ORDERED: POVI10OI TOPICAL (10:09)
[2016-08-12] MEDS ORDERED: COLL30T TOP (10:09)
[2016-08-12] MEDS ORDERED: ZINC20OI TOPICAL (10:09)
[2016-08-12] MEDS ORDERED: POTA20TA5 PO (10:09)
[2016-08-12] MEDS ORDERED: MAGN400T3 G-TUBE (10:09)
[2016-08-12] MEDS ORDERED: VANC125C3 PO (10:09)
[2016-08-12] MEDS ORDERED: OYST250T4 PO (10:09)
--- NOTE | 2016-08-12 10:14 | HHI.PR ---
Subjective Remarks Afebrile, no chest pain, no shortness of breath. Diarrhea is improved. Objective Vitals Vital Signs Date Time Temp Pulse Resp B/P Pulse Ox O2 Delivery O2 Flow Rate FiO2 08/12/16 04:00 97.7 78 18 137/65 96 08/12/16 00:00 98.0 62 18 149/99 98 08/11/16 20:00 97.7 78 18 144/66 100 08/11/16 20:00 78 08/11/16 17:27 99 Nasal Cannula 2.00 08/11/16 16:00 97.6 82 30 130/60 99 08/11/16 12:00 97.9 74 32 136/63 100 08/11/16 10:33 97 Nasal Cannula 2.00 I/O 08/11/16 08/11/16 08/11/16 08/12/16 08/12/16 08/12/16 07:00 15:00 23:00 07:00 15:00 23:00 Intake Total 0 ml 2741 ml 805 ml 30 ml Output Total 600 ml 100 ml 650 ml 750 ml Balance -600 ml 2641 ml 155 ml -720 ml Intake Oral 0 ml 120 ml 100 ml 30 ml IV Total 2621 ml 644 ml Tube Feeding 61 ml Output Urine Total 600 ml 100 ml 650 ml 750 ml # Bowel Movements 1 0 0 2 Result Diagram: 08/11/16 0708 08/12/16 0743 Objective Remarks GENERAL: Patient sitting up in bed. Awake and alert. SKIN: Warm and dry. NECK: Supple, trachea midline. No JVD or lymphadenopathy. CARDIOVASCULAR: Regular rate and rhythm without murmurs, gallops, or rubs. RESPIRATORY: Breath sounds equal bilaterally. No accessory muscle use. GASTROINTESTINAL: Abdomen soft, non-tender, nondistended. PEG tube placed. MUSCULOSKELETAL: No cyanosis, or edema. Left leg with dry scabs. Left hip postoperative with drain removed. Dressing clean dry and intact. Unchanged. Awake, alert, oriented to place. Procedures 07/15/16 left hip aspiration A/P Problem List: (1) Atrial fibrillation with RVR ICD Code: I48.91 Status: Acute (2) Sepsis ICD Code: A41.9 Status: Acute (3) Thrombus of left atrial appendage without antecedent myocardial infarction ICD Code: I51.3 Status: Acute (4) HTN (hypertension) ICD Code: I10 Status: Chronic (5) Type 2 diabetes mellitus ICD Code: E11.9 Status: Chronic (6) Hypocalcemia ICD Code: E83.51 Status: Resolved (7) Hypomagnesemia ICD Code: E83.42 Status: Acute (8) Hypokalemia ICD Code: E87.6 Status: Resolved (9) Chronic systolic CHF (congestive heart failure) ICD Code: I50.22 Status: Chronic (10) Fracture of left hip requiring operative repair ICD Code: S72.002A Status: Acute (11) Hx of coronary artery disease ICD Code: Z86.79 Status: Chronic (12) C. difficile colitis ICD Code: A04.7 Status: Acute Assessment and Plan 76 years old male //Sepsis secondary to C. difficile: Continue oral vancomycin. //Left hip MRSA wound and right lateral heel cellulitis: Appreciate orthopedic surgery recommendations. on IV vancomycin. ID ff seen by Plastics with wound care recommendations- -Status post removal of left hip arthroplasty 08/03. Appreciate surgical assistance. -Continue antibiotics as per infectious disease. Continue vancomycin, switch cefepime to Levaquin, continue oral vancomycin for C. difficile. Discussed extensively with Dr. Dobson. //Left hip fracture status post ORIF in May 2016. Appreciate orthopedic surgery recommendations. starting knee flexion contracture Continue physical therapy. -Status post removal of left hip arthroplasty 08/03. Appreciate surgical assistance. Start Plavix. //Atrial fibrillation with RVR- rate better controlled.- now in SR on exam no chest pains Continue oral Cardizem CD 120 mg daily, metoprolol. Heparin discontinued by cardiology. //Left atrial thrombus: Appreciate cardiology recommendations. Likely secondary to IA in the past. Heparin discontinued by cardiology. //Chronic systolic congestive heart failure with mild exacerbation: Exacerbation has resolved.Ejection fraction 40% on echocardiogram. Continue beta anthony. Hypertension: Norvasc on hold. Continue metoprolol. //Anemia: -Postoperative on chronic. -08/05. Hemoglobin roughly stable at 7.2 postoperatively. Continue to monitor. 08/06 Hemoglobin low. Replacement of one unit ordered. Follow-up labs tomorrow. 08/07 rpt h/h improved. 08/08. Continue to monitor. //Poor oral intake: -08/05 Consult dietary for calorie count. Stop nicotine patch Add Marinol for appetite stimulation. -08/06 Calorie count started. Appetite improved on Marinol. Appreciate dietary assistance. 08/08. Increase Marinol. Calorie count to finish on 08/09. Patient may need PEG tube. -08/10. PEG tube placed //Peripheral vascular disease: Status post lower extremity bypass. start Plavix 08/12. //Dementia: Continue supportive care. //Diabetes mellitus: Monitor Accu-Cheks and cover with sliding scale insulin. //Hypomagnesemia: improved. Jo0qpiy 400 mg po bid //Hypokalemia: Continue to supplement potassium. ,. KCL 20 meq po daily //Hypocalcemia: Supplement calcium. //GI prophylaxis: Pepcid. Discharge Planning Discharge Planning PEG tube placed. -requires IV and by mouth vancomycin. On cefepime infectious disease following Patient has been accepted to [facility] when medically stable. Possible discharge tomorrow. Problem Qualifiers (1) Type 2 diabetes mellitus: Qualified Code: E11.51 - Type 2 diabetes mellitus with diabetic peripheral angiopathy without gangrene, without long-term current use of insulin Ann Marie Rome MD Aug 12, 2016 10:14
[2016-08-12] MEDS: DILTIAZEM-CD 120 MG CAP ER PO SCH (10:46)
[2016-08-12] MEDS: VANCOMYCIN 500 MG VIAL (FOR ORAL USE ONLY) PO SCH ×3 (10:46→18:21)
[2016-08-12] MEDS: CALCIUM/VITAMIN D 250 MG/125 U TAB PO SCH (10:46)
[2016-08-12] MEDS: METOPROLOL TARTRATE 25 MG TAB PO SCH (10:46)
[2016-08-12] MEDS: ATORVASTATIN 20 MG TAB PO SCH (10:46)
[2016-08-12] MEDS: POTASSIUM CHLORIDE 20 MEQ CONTROLLED RELEASE TAB PO SCH (10:47)
[2016-08-12] MEDS: MAGNESIUM OXIDE 400 MG TAB G-TUBE SCH (10:47)
[2016-08-12] MEDS: FAMOTIDINE 20 MG TAB PO SCH (10:47)
[2016-08-12] MEDS: NYSTATIN SUSP 500,000 U/5 ML CUP SWISH-SWAL SCH ×3 (10:47→18:21)
[2016-08-12] MEDS: SODIUM CHLORIDE 0.9% FLUSH 5 ML FLUSH IVF SCH (10:50)
[2016-08-12] MEDS: COLLAGENASE OINT 30 GM TUBE TOP SCH (10:50)
[2016-08-12] MEDS: ZINC OXIDE 20% OINT 30 GM TUBE TOPICAL SCH (10:50)
[2016-08-12 12:00] VITALS: BP 166/74; PULSE 66; RESP 20; TEMP 97.3; O2SAT 98
[2016-08-12 12:42] VITALS: O2SAT 95
[2016-08-12] MEDS: DRONABINOL 5 MG CAP PO SCH ×2 (13:08→18:20)
--- NOTE | 2016-08-12 13:33 | HHI.FF ---
Infusion Therapy Location of Infusion Therapy: Infusion Therapy Order Patient Information Patient Weight 63.6 kg Diagnosis: (1) Left hip prosthetic joint infection Coded Allergies: [place] Cheese (Verified Allergy, Unknown, 05/08/16) *MDRO Multi-Drug Resistant Organism (Verified Adverse Reaction, Unknown, MRSA, 07/15/16) MRSA (hip) - 07/12/16 Administer Medication Vancomycin q 24 hours 750 mg Start Treatment: Aug 13, 2016 Stop Treatment: Sep 14, 2016 Additional Information Venous access: PICC Line Additional Instructions [x] Peripheral flush and dressing changes per protocol [x] Implanted port and central dragline operator: * Implanted port: 10 ml Normal Saline followed by 5 ml Heparin 100 units/ml Heparin flush after each use and monthly to maintain. [] May leave port accessed during therapy. [] May leave peripheral site accessed for duration of therapy. [x] If patient has SOB or respiratory distress, check oxygen saturation. If less than 90% or clinical signs of respiratory distress, administer oxygen at 2 L/min. via nasal cannula and notify physician. [x] Anaphylaxis/Reaction orders: * Stop infusion. * Keep IV line open with saline flush. * Notify physician. * Monitor vital signs every 15 minutes until symptoms resolve. * Check Oxygen saturation; Oxygen at 2 L/min. via nasal cannula if less than 90% or clinical signs of respiratory distress. * Administer diphenhydramine (Benadryl) 25 mg IV STAT, (unless patient has received as pre-med). May repeat once, if necessary. * Solu-Cortef 250 mg IVP over 30-60 seconds, use 100 mg vials for each dissolution. * Epinephrine (1mg/1 ml) 0.3 mg subcutaneously or IVP now with any signs of respiratory distress. * Check with physician for new additional pre-med orders if patient is re- challenged or re-treated. [x] May remove PICC line when treatment complete, after confirming with Physician. [x] If the patient is admitted to the hospital, the ED, or transferred via [facility] , complete transfer form including medication reconciliation order sheet. Laboratory Tests Weekly Labs: CBC w/diff, Creatinine, SED Rate, Vancomycin Trough Zelda Dobson MD Aug 12, 2016 13:33
--- NOTE | 2016-08-12 13:53 | HHI.PR ---
Addendum to Inpatient Note Additional Information OK to dc pt to SNF Final rec's: Continue Vancomycin IV until 09/14/16( 6 wks from prosthesis removal Continue Vancomycin PO for c. diff for 2 weeks after systemic abx stopped (thru 10/04) Cont levaquine 750 daily PO for Proteus prosthetic hip infx x 6 week (thru 09/20) Zelda Nation MD Aug 12, 2016 13:53
[2016-08-12] MEDS ORDERED: LEVA750T PO (13:59)
--- NOTE | 2016-08-12 14:19 | HHI.DS ---
Discharge Summary Admission Date Jul 12, 2016 at 22:39 Discharge Date: Aug 12, 2016 Admitting Diagnosis sepsis; dibaetic foot ulcer; new onset AFRVR; DAMIAN (1) Atrial fibrillation with RVR ICD Code: I48.91 Diagnosis: Secondary (2) Sepsis ICD Code: A41.9 Diagnosis: Principal (3) Thrombus of left atrial appendage without antecedent myocardial infarction ICD Code: I51.3 Diagnosis: Secondary (4) HTN (hypertension) ICD Code: I10 Diagnosis: Secondary (5) Type 2 diabetes mellitus ICD Code: E11.9 Diagnosis: Secondary (6) Hypocalcemia ICD Code: E83.51 Diagnosis: Secondary (7) Hypomagnesemia ICD Code: E83.42 Diagnosis: Secondary (8) Hypokalemia ICD Code: E87.6 Diagnosis: Secondary (9) Chronic systolic CHF (congestive heart failure) ICD Code: I50.22 Diagnosis: Secondary (10) Fracture of left hip requiring operative repair ICD Code: S72.002A Diagnosis: Secondary (11) Hx of coronary artery disease ICD Code: Z86.79 Diagnosis: Secondary (12) C. difficile colitis ICD Code: A04.7 Diagnosis: Secondary Procedures 07/15/16 left hip aspiration Brief History - From Admission 76-year-old male with diabetes, hypertension, CAD with 6 vessel CABG, and dementiapresents to the emergency Department from home by EMS transport for generalized weakness progressively worsening decubitus ulcers and wound at prior left hip replacement site. No report of fever or chills. Also admits poor oral intake. Patient had a hip fracture 05/08/16 with hip repair and was also identified with that hospitalization have acute renal failure. He improved postoperatively with normalization of renal function and was discharged to a rehabilitation facility where he stayed for one month however due to insurance issues was not able to stay any longer and was discharged home. Patient has had a home health nurse managing with wound care the pressure sores affecting both heels left hip and left elbow. Home health nurses noted that the pressure sores are not improving with current therapy and large eschar are noted at the sites with focal petechia and purpura at the left hip postsurgical site. CBC/BMP: 08/11/16 0708 08/12/16 0743 Significant Findings Laboratory Tests Test 08/11/16 07:08 White Blood Count 16.5 TH/MM3 (4.0-11.0) Red Blood Count 3.37 MIL/MM3 (4.50-5.90) Hemoglobin 9.5 GM/DL (13.0-17.0) Hematocrit 30.4 % (39.0-51.0) Mean Corpuscular Hemoglobin 31.4 % Concent (32.0-36.0) Red Cell Distribution Width 17.4 % (11.6-17.2) Neutrophils (%) (Auto) 77.3 % (16.0-70.0) Neutrophils # (Auto) 12.7 TH/MM3 (1.8-7.7) Monocytes # (Auto) 1.2 TH/MM3 (0-0.9) Chloride Level 110 MEQ/L (98-107) Blood Urea Nitrogen 6 MG/DL (7-18) Random Glucose 134 MG/DL (74-106) Calcium Level 7.5 MG/DL (8.5-10.1) Phosphorus Level 1.9 MG/DL (2.5-4.9) Albumin 1.4 GM/DL (3.4-5.0) PE at Discharge GENERAL: Patient sitting up in bed. Awake and alert. Oriented to person and the fact that he is in the hospital. Disoriented to year, month, as before. Follows commands. SKIN: Warm and dry. NECK: Supple, trachea midline. No JVD or lymphadenopathy. CARDIOVASCULAR: Regular rate and rhythm without murmurs, gallops, or rubs. RESPIRATORY: Breath sounds equal bilaterally. No accessory muscle use. GASTROINTESTINAL: Abdomen soft, non-tender, nondistended. PEG tube placed. MUSCULOSKELETAL: No cyanosis, or edema. Left leg with dry scabs. Left hip postoperative with drain removed. Dressing clean dry and intact. Unchanged. BACK: Nontender without obvious deformity. No CVA tenderness. Pt update on day of discharge No overnight events, diarrhea improved, denies any abdominal pain. Afebrile. Hospital Course This is a 76-year-old male with diabetes, hypertension, CAD with 6 vessel CABG, and dementia presents to the emergency Department from home by EMS transport for generalized weakness progressively worsening decubitus ulcers and wound at prior left hip replacement site. Patient was found to have a left hip MRSA wound and right lateral heel cellulitis. Orthopedics was involved, infectious disease was consulted. Patient Status post removal of left hip arthroplasty . Patienton empiric antibiotics, was continued on vancomycin and cefepime. While at the hospital, patient also developed diarrhea, C. difficile assay turned back positive. Patient was started on oral vancomycin. He will continue on Cardizem and Toprol for his atrial fibrillation which has been controlled. Patient will continue on Plavix. Digoxin was stopped. Patient had left atrial thrombus, cardiology was consulted, initially placed and anticoagulation but per cardiology, heparin may be discontinued. She also has chronic systolic congestive heart failure, had a mild exacerbation, was diuresed well. Good response. Ejection fraction 40% on echocardiogram. He will Continue beta anthony. He was also placed on Marinol for appetite stimulation. PEG tube was placed and he will continue tube feeds. He will be discharged to rehabilitation, he will continue vancomycin until 09/14/16 to finish 6 weeks of treatment. He will also continue Levaquin for Proteus until 09/20/16. He will continue vancomycin orally until 2 weeks after systemic antibiotics are stopped which is on 10/04/16. Pt Condition on Discharge: Good Discharge Disposition: Discharge to SNF Discharge Time: > 30 minutes Discharge Instructions DIET: Follow Instructions for: As Tolerated, No Restrictions, On Tube Feeding Activities you can perform: Regular-No Restrictions Follow up Referrals: SNF/SENIOR CARE/ - 2-3 Days New Medications: Levofloxacin (Levaquin) 750 Mg Tab 750 MG PO DAILY Infection Days 38 Ref 0 TAB Vancomycin (Vancomycin) 125 Mg Cap 125 MG PO QID Infection #60 Ref 0 CAP Calcium Carbonate-Cholecalciferol (Oyster Shell Calcium/Vitamin D) 250-125 Mg- Unit Tab 250 MG PO DAILY supplement #30 TAB Collagenase (Santyl) 250 Unit/Gm Oin 1 APPLIC TOP DAILY wound #1 TUBE Diltiazem CD 24 HR (Cardizem CD 24 HR) 120 Mg Caper 120 MG PO DAILY amisha #30 CAP Dronabinol (Dronabinol) 5 Mg Cap 5 MG PO BID@11,16 appetite #4 CAP Famotidine (Famotidine) 20 Mg Tab 20 MG PO Q12HR GI #60 TAB Magnesium Oxide (Magnesium Oxide) 241.3 Mg Tab 400 MG G-TUBE Q12HR GI #60 TAB Metoprolol Tartrate (Metoprolol Tartrate) 25 Mg Tab 25 MG PO Q12HR heart #60 TAB Potassium Chloride Microencaps (Potassium Chloride Microencaps) 20 Meq Tab 20 MEQ PO DAILY supplement #30 TAB Povidone-Iodine Topical (Povidone-Iodine Topical) 10% Oint 1 APPLIC TOPICAL DAILY wound #1 TUBE Sodium Hypochlorite Topical (Dakins Solution Half Strength Topical) 0.2-0.25 % Soln 500 ML TOPICAL DAILY wound #1 ML Zinc Oxide (Topical) (Zinc Oxide) 20 % Oin 1 APPLIC TOPICAL DAILY wound #1 TUBE Zolpidem (Ambien) 5 Mg Tab 5 MG PO HS PRN INSOMNIA #5 TAB Continued Medications: Atorvastatin (Atorvastatin) 20 Mg Tab 20 MG PO DAILY Cholesterol Management #30 Ref 0 TAB Clopidogrel (Clopidogrel) 75 Mg Tab 75 MG PO DAILY Blood Clot Prevention #30 Ref 0 TAB Hydrocodone-Acetaminophen (Hydrocodone-Acetaminophen) 5-325 mg Tab 1 TAB PO Q4H PRN PAIN LESS THAN 5 ON SCALE #10 TAB (This prescription has been renewed) Nystatin Liq (Nystatin Liq) 100,000 unit/ml Susp 5 ML SWISH-SWAL QID Thrush #1 BOTTLE Tamsulosin (Flomax) 0.4 Mg Cap 0.4 MG PO HS Manage Prostate Problems #30 Ref 0 CAP Discontinued Medications: Amlodipine (Norvasc) 10 Mg Tab 5 MG PO DAILY Blood Pressure Management #30 TAB Enoxaparin Inj (Lovenox Inj) 40 Mg/0.4 Ml Syr 40 MG SQ Q24H Prevent Blood Clot #20 INJECTION Ann Marie Rome MD Aug 12, 2016 14:19
[2016-08-12] MEDS ORDERED: PHARMACY ORDERED LAB XX ONE (16:45)
[2016-08-12] MEDS ORDERED: VANCOMYCIN INJ 750 MG in SODIUM CHLOR 0.9% 250 ML INJ 250 ML IV SCH (17:00)
--- NOTE | 2016-08-12 18:03 | RADRPT ---
EXAM DATE/TIME: 08/12/2016 17:52 [facility] COMPARISON: CHEST SINGLE AP, July 12, 2016, 20:23. INDICATIONS : Evaluate PICC line placement. MEDICAL HISTORY : None. SURGICAL HISTORY : None. ENCOUNTER: Initial ACUITY: 1 day PAIN SCORE: 0/10 LOCATION: Left chest FINDINGS: The cardiac silhouette is normal in transverse diameter. Median sternotomy wires are present. A PICC line is in place via left-sided approach with its tip in the region of the superior vena cava. There are findings of congestive heart failure with interstitial and alveolar opacity bilaterally. There is left lower lobe atelectasis versus pneumonia. Moderate size bilateral pleural effusions are identifi ed. CONCLUSION: 1. Cardiomegaly and findings of congestive heart failure. 2. Uncomplicated PICC line placement. Aniceto Vasquez MD on August 12, 2016 at 18:01 Board Certified Radiologist. This report was verified electronically.
[2016-08-12 18:32] LABS: AUTOMATED NEUTROPHIL # 13.2 TH/MM3 (1.8-7.7); BASOPHIL # 0.1 TH/MM3 (0-0.2); BASOPHIL % 0.3 % (0.0-2.0); EOSINOPHIL % 0.2 % (0.0-4.0); HEMATOCRIT 26.7 % (39.0-51.0); HEMO FLAGS DIFF FINAL; LYMPH % 8.2 % (9.0-44.0); LYMPHOCYTE # 1.3 TH/MM3 (1.0-4.8); MEAN CELL VOLUME 87.9 FL (80.0-100.0); MEAN CORPUSCULAR HEMOGLOBIN 30.3 PG (27.0-34.0); MEAN CORPUSCULAR HGB CONC 34.4 % (32.0-36.0); MONO % 7.1 % (0.0-8.0); NEUT % 84.2 % (16.0-70.0); PLATELET COUNT 418 TH/MM3 (150-450); RED BLOOD COUNT 3.04 MIL/MM3 (4.50-5.90); WHITE BLOOD COUNT 15.7 TH/MM3 (4.0-11.0)
--- NOTE | 2016-08-20 14:51 | MB ---
cc: TONY GAMBLE MD, FRANKLYN F. MD DATE OF CONSULTATION: 08/20/[address] Gamble REASON FOR CONSULTATION Left hip infection. HISTORY OF PRESENT ILLNESS This is a 76-year-old white male who was recently in the hospital in June and treated for infection of the left hip and also C. difficile. The patient completed antibiotics for the left hip on September 14. He was in a halfway facility receiving antibiotic treatment. The patient presented to the emergency department on 08/18/2016 because of an infected left hip. He was noted to have drainage coming from the hip on the day prior to being brought to the emergency department for evaluation. The patient was evaluated and he was noted to have normal heart rate and normal temperature. He was evaluated by the orthopedic surgery and because of the drainage from the left hip he was taken to surgery for I&D which was performed yesterday. He also was noted to have a decubitus at the left ischium and this was closed partially and a wound VAC was applied. A culture of the wound was sent and the results are pending. The patient was noted to have necrotic tissue at the left hip and also the gluteus pineda muscle was noted to be necrotic as well. These were debrided. The patient was noted to have become hypotensive during the procedure and subsequent to the procedure he was noted to respiratory failure and was kept on the ventilator. The patient is known to have severe dementia. He is currently intubated on the ventilator and information is obtained from the medical record. He is afebrile. His white blood cell count increased to 21.3 today from 15.4 on 08/18/2016. Culture from the left hip on 08/18/2016 has staph MRSA and Nicolette albicans. He did have staph MRSA and Nicolette on previous hospitalization. The patient has a PICC line in place which was removed during this admission. The patient reportedly was started on Levaquin and was maintained on oral vancomycin for C. difficile prior to this admission on August 12. PAST MEDICAL HISTORY 1. Diabetes mellitus. 2. Hypertension. 3. Alzheimer's disease. 4. Peripheral vascular disease. 5. History of CVA. 6. Coronary artery disease. 7. Coronary bypass graft surgery. 8. Left fem-pop bypass. 9. Left hip arthroplasty in May 2016. ALLERGIES No known drug allergies. MEDICATIONS 1. Colace. 2. Magnesium oxide. 3. Santyl ointment applied to the wound. 4. Levaquin. 5. Vancomycin. 6. Marinol. 7. Lipitor. 8. Plavix. 9. Theragran. 10.Piperacillin/tazobactam. 11.Vitamin-C. 12.Pepcid. 13.Lovenox. 14.Flomax. 15.Vancomycin p.o. 16.Ambien. SOCIAL HISTORY No tobacco, alcohol or illicit drugs. FAMILY HISTORY Noncontributory. REVIEW OF SYSTEMS Unable to obtain. PHYSICAL EXAMINATION GENERAL: This is a frail thin male who is on the ventilator. He is in no acute distress. He is mildly sedated and unresponsive currently. VITAL SIGNS: Temperature 97.8, BP 122/43, respirations 20, heart rate 63. HEENT: Head is atraumatic. Extraocular movements cannot be fully assessed. Oropharynx is intubated. Slightly dry mucosa. NECK: Supple. No swelling and no adenopathy. LUNGS: Decreased breath sounds. HEART: Regular S1, S2, without audible murmurs, rubs or gallops. ABDOMEN: Bowel sounds present but diminished. Soft, nontender. RECTAL: Not performed. EXTREMITIES: Left hip has a vacuum apparatus exiting the left side wound bed. This has serosanguineous drainage. The remainder of the extremities have no clubbing or cyanosis. 1+ edema. SKIN: No diffuse rash. NEUROLOGIC: Unable to fully assess. LABORATORY DATA WBC 21.3, hemoglobin 10.0, platelets 275. Creatinine 0.72, BUN 10, sodium 145. Random vancomycin level is 27.9. Blood cultures pending. IMPRESSION 1. 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 The patient also has Nicolette in the wound culture. 2. Status post left hip arthroplasty, status post Girdlestone arthroplasty. 3. History of C. difficile colitis. 4. Leukocytosis. RECOMMENDATIONS 1. Discontinue vancomycin. 2. Add Diflucan for Nicolette albicans. 3. Discontinue piperacillin/tazobactam. 4. Discontinue Levaquin. 5. Monitor the new cultures to determine if there are additional organisms that need to be treated at the left hip. 6. Begin daptomycin since the JOHN for the MRSA is lower for daptomycin. 7. Continue p.o. vancomycin for C. difficile coverage while the patient is on antibiotics and monitor his stools. Thank you for this consultation. The progress will be monitored and further recommendations will be given on follow-up if necessary. Pablo Draper MD FD/JEVON /11:57 AM /2:29 PM
== END 2016-08-12 20:00 | DRG 463 ==
LOC: NEPC 19:30 → NEDA 22:39 → NEDH 07-13 04:35 → N04B 07-14 03:21
PROVIDERS: ADMIT Hospitalist; ATTEND Hospitalist
PROC: 0S9B3ZZ Drainage of Left Hip Joint, Percutaneous Approach (ICD-10-PCS; 2016-07-15)
PROC: 0JBM0ZZ Excision of Left Upper Leg Subcutaneous Tissue and Fascia, Open Approach (ICD-10-PCS; 2016-08-03)
PROC: 0SPB0JZ Removal of Synthetic Substitute from Left Hip Joint, Open Approach (ICD-10-PCS; principal; 2016-08-03 19:36)
PROC: 0QB70ZZ Excision of Left Upper Femur, Open Approach (ICD-10-PCS; 2016-08-03 19:36)
PROC: 30233N1 Transfusion of Nonautologous Red Blood Cells into Peripheral Vein, Percutaneous Approach (ICD-10-PCS; 2016-08-05)
PROC: 0DJ08ZZ Inspection of Upper Intestinal Tract, Via Natural or Artificial Opening Endoscopic (ICD-10-PCS; 2016-08-10)
PROC: 0DH63UZ Insertion of Feeding Device into Stomach, Percutaneous Approach (ICD-10-PCS; 2016-08-10)
DX: T84.52XA Infection and inflammatory reaction due to internal left hip prosthesis, initial encounter (principal); A41.02 Sepsis due to Methicillin resistant Staphylococcus aureus; A41.4 Sepsis due to anaerobes; E41 Nutritional marasmus; I50.23 Acute on chronic systolic (congestive) heart failure; L89.153 Pressure ulcer of sacral region, stage 3; N17.9 Acute kidney failure, unspecified; L89.223 Pressure ulcer of left hip, stage 3; G30.9 Alzheimer's disease, unspecified; E83.42 Hypomagnesemia; I11.0 Hypertensive heart disease with heart failure; I42.9 Cardiomyopathy, unspecified; F02.80 Dementia in other diseases classified elsewhere, unspecified severity, without behavioral disturbance, psychotic disturbance, mood disturbance, and anxiety; A04.7 Enterocolitis due to Clostridium difficile; L03.115 Cellulitis of right lower limb; L03.116 Cellulitis of left lower limb; L97.429 Non-pressure chronic ulcer of left heel and midfoot with unspecified severity; E46 Unspecified protein-calorie malnutrition; I51.3 Intracardiac thrombosis, not elsewhere classified; E11.51 Type 2 diabetes mellitus with diabetic peripheral angiopathy without gangrene; E11.621 Type 2 diabetes mellitus with foot ulcer; E11.628 Type 2 diabetes mellitus with other skin complications; I48.91 Unspecified atrial fibrillation; E86.0 Dehydration; T84.021A Dislocation of internal left hip prosthesis, initial encounter; E78.5 Hyperlipidemia, unspecified; I73.9 Peripheral vascular disease, unspecified; I25.10 Atherosclerotic heart disease of native coronary artery without angina pectoris; H91.90 Unspecified hearing loss, unspecified ear; K21.0 Gastro-esophageal reflux disease with esophagitis; K44.9 Diaphragmatic hernia without obstruction or gangrene; M24.552 Contracture, left hip; E83.51 Hypocalcemia; E87.6 Hypokalemia; E11.649 Type 2 diabetes mellitus with hypoglycemia without coma; E11.622 Type 2 diabetes mellitus with other skin ulcer; D64.9 Anemia, unspecified; M24.561 Contracture, right knee; E83.39 Other disorders of phosphorus metabolism; Y79.2 Prosthetic and other implants, materials and accessory orthopedic devices associated with adverse incidents; Y83.1 Surgical operation with implant of artificial internal device as the cause of abnormal reaction of the patient, or of later complication, without mention of misadventure at the time of the procedure; Z68.20 Body mass index [BMI] 20.0-20.9, adult; Z79.01 Long term (current) use of anticoagulants; Z79.4 Long term (current) use of insulin; Z95.1 Presence of aortocoronary bypass graft; Z86.73 Personal history of transient ischemic attack (TIA), and cerebral infarction without residual deficits; Z96.641 Presence of right artificial hip joint
CPT/HCPCS: 20610; 36430; 36569; 51702; 71010; 72170; 73501; 76000; 76937; 77002; 80048; 80053; 80069; 80162; 80202; 81001; 82272; 82533; 82550; 82552; 82565; 82570; 82948; 83605; 83735; 84100; 84155; 84300; 84484; 85007; 85014; 85018; 85025; 85027; 85610; 85730; 86403; 86850; 86900; 86901; 86920; 87015; 87040; 87070; 87077; 87086; 87102; 87116; 87147; 87186; 87205; 87206; 87493; 93005; 93306; 94150; 96365; 96367; 96368; 96376; J0131; J0610; J0692; J1160; J1170; J1580; J1644; J1815; J1940; J2270; J2370; J2405; J2543; J2710; J3010; J3301; J3370; J3475; J3480; J7030; J7050; J7070; J7120; L1830; P9016; Q0167; Q9967

== ENCOUNTER 2016-08-18 17:43 | Inpatient (IN) | payer OTHER, MEDICARE ==
[~2016-08-18] VITALS: Ht 172.7 cm; Wt 69.9 kg
[~2016-08-18 17:43] MED LIST changes: +AMBI5TAB PO; -AMLO10 PO; +CARD120C4 PO; +COLL30T TOP; +DAKINSHST TOPICAL; +DRON5CAP PO; -ENOX40P SQ; +FAMO20TA2 PO; +LEVA750T PO; +MAGN400T3 G-TUBE; +METO25TA3 PO; +OYST250T4 PO; +POTA20TA5 PO; +POVI10OI TOPICAL; +VANC125C3 PO; +ZINC20OI TOPICAL
[2016-08-18] MEDS ORDERED: PIPERACIL-TAZO 4.5 GM PREMIX 100 ML IV STA (17:52)
[2016-08-18] MEDS ORDERED: SODIUM CHLOR 0.9% 1000 ML INJ 100 ML IV ONE (17:52)
[2016-08-18] MEDS ORDERED: VANCOMYCIN INJ 1,000 MG in SODIUM CHLOR 0.9% 250 ML INJ 250 ML IV STA (17:52)
[2016-08-18] MEDS ORDERED: SODIUM CHLOR 0.9% 1000 ML INJ 1,000 ML IV ONE ×2 (17:52)
[2016-08-18 18:00] VITALS: BP 152/81; PULSE 87; RESP 18; TEMP 98.8; O2SAT 93
[2016-08-18 18:04] VITALS: O2SAT 93
--- NOTE | 2016-08-18 18:18 | PD ---
HPI Chief Complaint: Skin Problem Time Seen by Provider: 17:52 Travel History International Travel<30 days: No Contact w/Intl Traveler<30days: No Traveled to known affect area: No History of Present Illness HPI 76-year-old male came to the emergency room brought by EMS from the [facility] with history of infected left hip. Patient was in the hospital not too long ago last month with the same problem. He had hip arthroplasty done at that point and started on IV antibiotics. [facility] was [facility] to the [facility] with IV antibiotics. PICC line. He developed C. difficile colitis and he was started on by mouth vancomycin as well. They have noticed this drainage since yesterday. Patient is mostly bedbound and not the best historian. Vital signs were otherwise stable. Rectal temp was 98.8. It's his left hip. PFSH Past Medical History Narrative Medical List of his past medical, surgical, social and family history is reviewed from the nursing note. Hx Anticoagulant Therapy: Yes Arthritis: No Asthma: No Autoimmune Disease: No Blood Disorders: No Anxiety: No Depression: No Heart Rhythm Problems: No Cancer: No Cardiac Catheterization: Yes Cardiovascular Problems: Yes (CAD) High Cholesterol: No Chemotherapy: No Chest Pain: No Congestive Heart Failure: No COPD: No Cerebrovascular Accident: Yes (TIA) Dementia: Yes Diabetes: Yes Diminished Hearing: Yes Endocrine: No GERD: No Glaucoma: No Genitourinary: No Headaches: No Hepatitis: No Hiatal Hernia: No Heparin Induced Thrombocytopen: No Hypertension: Yes Immune Disorder: No Kidney Stones: No Musculoskeletal: Yes (LEFT HIP SURGERY) Neurologic: Yes Psychiatric: No Reproductive: No Respiratory: Yes (current every day smoker) Integumentary: Yes (FAILED OUTPATIENT WOUND CARE) Myocardial Infarction: No Radiation Therapy: No Renal Failure: No Seizures: No Sickle Cell Disease: No Sleep Apnea: No Thyroid Disease: No Ulcer: No Past Surgical History Abdominal Surgery: No AICD: No Cardiac Surgery: Yes (cabg x 6 vessel 2003) Coronary Artery Bypass Graft: Yes Ear Surgery: No Endocrine Surgery: No Eye Surgery: No Genitourinary Surgery: No Gynecologic Surgery: No Joint Replacement: No Oral Surgery: Yes Pacemaker: No Thoracic Surgery: Yes Other Surgery: Yes (vascular left groin 2015 ) Social History Alcohol Use: No Tobacco Use: No Substance Use: No Allergies-Medications (Allergen,Severity, Reaction): Coded Allergies: Kosovan Cheese (Verified Allergy, Unknown, 08/18/16) *MDRO Multi-Drug Resistant Organism (Verified Adverse Reaction, Unknown, MRSA, 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 Reported Meds & Prescriptions Reported Meds & Active Scripts Active Levaquin (Levofloxacin) 750 Mg Tab 750 Mg PO DAILY 38 Days Vancomycin (Vancomycin HCl) 125 Mg Cap 125 Mg PO QID Ambien (Zolpidem Tartrate) 5 Mg Tab 5 Mg PO HS PRN Potassium Chloride Microencaps 20 Meq Tab 20 Meq PO DAILY Metoprolol Tartrate 25 Mg Tab 25 Mg PO Q12HR Magnesium Oxide 241.3 Mg Tab 400 Mg G-TUBE Q12HR Famotidine 20 Mg Tab 20 Mg PO Q12HR Dronabinol 5 Mg Cap 5 Mg PO BID@11,16 Cardizem CD 24 HR (Diltiazem CD 24 HR) 120 Mg Caper 120 Mg PO DAILY Hydrocodone-Acetaminophen 5-325 mg Tab 1 Tab PO Q4H PRN Novolog Inj (Insulin Aspart) 1,000 Unit/10 Ml Vial 1-9 Units SQ ACHS Max dose at bedtime:( )units; sugars less than 70,(0)units; sugars 150-199,(1) unit; sugars 200-249,(3) units; sugars 250-299,(5) units; sugars 300-349,(7) units; sugars greater than 349,(9) units Nystatin Liq 100,000 unit/ml Susp 5 Ml SWISH-SWAL QID Reported Vancomycin Inj (Vancomycin HCl) 750 Mg Inj 750 Mg IV DAILY Glucerna 1.5 Angelo (Nutritional Supplements) 1 Liq Liq 15 Ml PO CONTINUOUS Vitamin C (Ascorbic Acid) 500 Mg Tab 500 Mg G-TUBE BID Zinc Sulfate 220 Mg Tab 220 Mg G-TUBE DAILY Multivitamin Liq (Multiple Vitamins W/ Minerals Liq) 1 Liq Liq 15 Ml G-TUBE DAILY Flomax (Tamsulosin HCl) 0.4 Mg Cap 0.4 Mg PO HS Clopidogrel (Clopidogrel Bisulfate) 75 Mg Tab 75 Mg PO DAILY Atorvastatin (Atorvastatin Calcium) 20 Mg Tab 20 Mg PO DAILY Narrative Medication List of his home medications reviewed from the nursing note. Review of Systems ROS Limitations: Poor Historian Except as stated in HPI: all other systems reviewed are Neg Physical Exam Exam Limitations: Poor Historian Narrative GENERAL: Awake, alert, minimally verbal, bedridden, left lower extremity contractures SKIN: Warm and dry. Left hip has surgical incisions with sutures placed and surrounding erythema. There is copious amount of purulent drainage noticed coming out from the incision. Culture was collected. HEAD: Atraumatic. Normocephalic. EYES: Pupils equal and round. No scleral icterus. No injection or drainage. ENT: No nasal bleeding or discharge. Mucous membranes pink and moist. NECK: Trachea midline. No JVD. CARDIOVASCULAR: Regular rate and rhythm. No murmur appreciated. RESPIRATORY: No accessory muscle use. Clear to auscultation. Breath sounds equal bilaterally. GASTROINTESTINAL: Abdomen soft, non-tender, nondistended. Hepatic and splenic margins not palpable. MUSCULOSKELETAL: No obvious deformities. No clubbing. No cyanosis. No edema. NEUROLOGICAL: Awake and alert. No obvious cranial nerve deficits. Motor grossly within normal limits. Normal speech. PSYCHIATRIC: Appropriate mood and affect; insight and judgment normal. Data Data Last Documented VS Vital Signs Date Time Temp Pulse Resp B/P Pulse Ox O2 Delivery O2 Flow Rate FiO2 08/18/16 20:29 91 18 145/65 93 Nasal Cannula 4 08/18/16 18:00 98.8 Orders Complete Blood Count With Diff (08/18/16 17:52) Comprehensive Metabolic Panel (08/18/16 17:52) Lactic Acid Sepsis Protocol (08/18/16 17:52) Urinalysis - C+S If Indicated (08/18/16 17:52) Blood Culture (08/18/16 17:52) Chest, Single Ap (08/18/16 17:52) Blood Glucose (08/18/16 17:52) Ecg Monitoring (08/18/16 17:52) Iv Access Insert/Monitor (08/18/16 17:52) Oximetry (08/18/16 17:52) Oxygen Administration (08/18/16 17:52) Piperacil-Tazo 4.5 Gm Premix (Zosyn 4.5 (08/18/16 17:52) Vancomycin Inj (Vancomycin Inj) (08/18/16 17:52) Sodium Chlor 0.9% 1000 Ml Inj (Ns 1000 M (08/18/16 17:52) Sodium Chlor 0.9% 1000 Ml Inj (Ns 1000 M (08/18/16 17:52) Sodium Chlor 0.9% 1000 Ml Inj (Ns 1000 M (08/18/16 17:52) Wound Culture And Gram Stain (08/18/16 17:54) Type And Screen (08/18/16 19:29) Urine Culture (08/18/16 18:35) Potassium Chlor 20 Meq Premix (Kcl 20 Me (08/18/16 20:15) Diet Npo (08/19/16 Breakfast) Admit Order (Ed Use Only) (08/18/16 20:29) Labs Laboratory Tests Test 08/18/16 08/18/16 18:28 18:35 White Blood Count 15.4 TH/MM3 Red Blood Count 2.51 MIL/MM3 Hemoglobin 7.2 GM/DL Hematocrit 22.5 % Mean Corpuscular Volume 89.7 FL Mean Corpuscular Hemoglobin 28.7 PG Mean Corpuscular Hemoglobin 32.0 % Concent Red Cell Distribution Width 17.6 % Platelet Count 285 TH/MM3 Mean Platelet Volume 8.7 FL Neutrophils (%) (Auto) 87.9 % Lymphocytes (%) (Auto) 6.2 % Monocytes (%) (Auto) 5.8 % Eosinophils (%) (Auto) 0.0 % Basophils (%) (Auto) 0.1 % Neutrophils # (Auto) 13.5 TH/MM3 Lymphocytes # (Auto) 1.0 TH/MM3 Monocytes # (Auto) 0.9 TH/MM3 Eosinophils # (Auto) 0.0 TH/MM3 Basophils # (Auto) 0.0 TH/MM3 CBC Comment DIFF FINAL Differential Comment Sodium Level 143 MEQ/L Potassium Level 3.0 MEQ/L Chloride Level 107 MEQ/L Carbon Dioxide Level 29.7 MEQ/L Anion Gap 6 MEQ/L Blood Urea Nitrogen 8 MG/DL Creatinine 0.73 MG/DL Estimat Glomerular Filtration 104 ML/MIN Rate Random Glucose 122 MG/DL Lactic Acid Level 0.9 mmol/L Calcium Level 7.6 MG/DL Total Bilirubin 0.4 MG/DL Aspartate Amino Transf 24 U/L (AST/SGOT) Alanine Aminotransferase 16 U/L (ALT/SGPT) Alkaline Phosphatase 140 U/L Total Protein 5.2 GM/DL Albumin 1.5 GM/DL Urine Color YELLOW Urine Turbidity CLOUDY Urine pH 6.5 Urine Specific [place] 1.019 Urine Protein 100 mg/dL Urine Glucose (UA) NEG mg/dL Urine Ketones NEG mg/dL Urine Occult Blood SMALL Urine Nitrite NEG Urine Bilirubin NEG Urine Urobilinogen LESS THAN 2.0 MG/DL Urine Leukocyte Esterase MOD Urine RBC 3 /hpf Urine WBC 36 /hpf Urine Squamous Epithelial 1 /hpf Cells Urine Calcium Oxalate Crystals OCC /hpf Urine Bacteria FEW /hpf Urine White Blood Cell Casts 1 /lpf Urine Mucus FEW /lpf Microscopic Urinalysis Comment CATH-CULTURE IND MDM Medical Decision Making Medical Screen Exam Complete: Yes Emergency Medical Condition: Yes Medical Record Reviewed: Yes Differential Diagnosis Sepsis, infection Narrative Course 6:17 PM I ordered sepsis workup along with IV fluid and antibiotic as per sepsis protocol. Getting IV Zosyn and vancomycin. Patient will require admission again this time. 6:43 PM awaiting for the blood test results. Patient will require admission. Case will be signed over to the oncoming ER physician. Procedures EKG Prior to Arrival: Kurt Butler MD Aug 18, 2016 18:18
--- NOTE | 2016-08-18 18:43 | RADRPT ---
EXAM DATE/TIME: 08/18/2016 18:16 [facility] COMPARISON: CHEST SINGLE AP, August 12, 2016, 17:52. INDICATIONS : Fever. MEDICAL HISTORY : unobtainable SURGICAL HISTORY : unobtainable ENCOUNTER: Initial ACUITY: 1 day PAIN SCORE: Non-responsive. LOCATION: Bilateral upper chest FINDINGS: A single view of the chest demonstrates cardiomegaly with bilateral pleural effusions greater on the left. Bilateral lung densities greater on the left. Previous median sternotomy. Osseous structures a re intact. CONCLUSION: 1. Bilateral lung densities greater on the left with bilateral pleural effusions. Jose A Small MD on August 18, 2016 at 18:40 Board Certified Radiologist. This report was verified electronically.
[2016-08-18 18:47] VITALS: BP 140/63; PULSE 83; RESP 20; O2SAT 97
--- NOTE | 2016-08-18 19:21 | PD ---
Physical Exam Date Seen by Provider: Aug 18, 2016 Time Seen by Provider: 19:19 Narrative The patient is a 76-year-old male was initially evaluated by the previous physician, Dr. Knapp. The patient was signed out at 7 PM with laboratory evaluation and subsequent admission pending for reinfected left hip prosthesis who is currently on antibiotics and had a previous washout, according to the previous physician. Data Data Last Documented VS Vital Signs Date Time Temp Pulse Resp B/P Pulse Ox O2 Delivery O2 Flow Rate FiO2 08/18/16 18:47 83 20 140/63 97 Nasal Cannula 4 08/18/16 18:00 98.8 Orders Complete Blood Count With Diff (08/18/16 17:52) Comprehensive Metabolic Panel (08/18/16 17:52) Lactic Acid Sepsis Protocol (08/18/16 17:52) Urinalysis - C+S If Indicated (08/18/16 17:52) Blood Culture (08/18/16 17:52) Chest, Single Ap (08/18/16 17:52) Blood Glucose (08/18/16 17:52) Ecg Monitoring (08/18/16 17:52) Iv Access Insert/Monitor (08/18/16 17:52) Oximetry (08/18/16 17:52) Oxygen Administration (08/18/16 17:52) Piperacil-Tazo 4.5 Gm Premix (Zosyn 4.5 (08/18/16 17:52) Vancomycin Inj (Vancomycin Inj) (08/18/16 17:52) Sodium Chlor 0.9% 1000 Ml Inj (Ns 1000 M (08/18/16 17:52) Sodium Chlor 0.9% 1000 Ml Inj (Ns 1000 M (08/18/16 17:52) Sodium Chlor 0.9% 1000 Ml Inj (Ns 1000 M (08/18/16 17:52) Wound Culture And Gram Stain (08/18/16 17:54) Type And Screen (08/18/16 19:29) Urine Culture (08/18/16 18:35) Potassium Chlor 20 Meq Premix (Kcl 20 Me (08/18/16 20:15) Diet Npo (08/19/16 Breakfast) Admit Order (Ed Use Only) (08/18/16 20:29) Labs Laboratory Tests Test 08/18/16 08/18/16 18:28 18:35 White Blood Count 15.4 TH/MM3 Red Blood Count 2.51 MIL/MM3 Hemoglobin 7.2 GM/DL Hematocrit 22.5 % Mean Corpuscular Volume 89.7 FL Mean Corpuscular Hemoglobin 28.7 PG Mean Corpuscular Hemoglobin 32.0 % Concent Red Cell Distribution Width 17.6 % Platelet Count 285 TH/MM3 Mean Platelet Volume 8.7 FL Neutrophils (%) (Auto) 87.9 % Lymphocytes (%) (Auto) 6.2 % Monocytes (%) (Auto) 5.8 % Eosinophils (%) (Auto) 0.0 % Basophils (%) (Auto) 0.1 % Neutrophils # (Auto) 13.5 TH/MM3 Lymphocytes # (Auto) 1.0 TH/MM3 Monocytes # (Auto) 0.9 TH/MM3 Eosinophils # (Auto) 0.0 TH/MM3 Basophils # (Auto) 0.0 TH/MM3 CBC Comment DIFF FINAL Differential Comment Sodium Level 143 MEQ/L Potassium Level 3.0 MEQ/L Chloride Level 107 MEQ/L Carbon Dioxide Level 29.7 MEQ/L Anion Gap 6 MEQ/L Blood Urea Nitrogen 8 MG/DL Creatinine 0.73 MG/DL Estimat Glomerular Filtration 104 ML/MIN Rate Random Glucose 122 MG/DL Lactic Acid Level 0.9 mmol/L Calcium Level 7.6 MG/DL Total Bilirubin 0.4 MG/DL Aspartate Amino Transf 24 U/L (AST/SGOT) Alanine Aminotransferase 16 U/L (ALT/SGPT) Alkaline Phosphatase 140 U/L Total Protein 5.2 GM/DL Albumin 1.5 GM/DL Urine Color YELLOW Urine Turbidity CLOUDY Urine pH 6.5 Urine Specific [place] 1.019 Urine Protein 100 mg/dL Urine Glucose (UA) NEG mg/dL Urine Ketones NEG mg/dL Urine Occult Blood SMALL Urine Nitrite NEG Urine Bilirubin NEG Urine Urobilinogen LESS THAN 2.0 MG/DL Urine Leukocyte Esterase MOD Urine RBC 3 /hpf Urine WBC 36 /hpf Urine Squamous Epithelial 1 /hpf Cells Urine Calcium Oxalate Crystals OCC /hpf Urine Bacteria FEW /hpf Urine White Blood Cell Casts 1 /lpf Urine Mucus FEW /lpf Microscopic Urinalysis Comment CATH-CULTURE IND MDM Medical Record Reviewed: Yes Supervised Visit with PETER: No Interpretation(s) Last Impressions Chest X-Ray 08/18/16 0072 Signed Impressions: Service Date/Time: Thursday, August 18, 2016 18:16 - CONCLUSION: 1. Bilateral lung densities greater on the left with bilateral pleural effusions. Jose A Small MD Laboratory Tests Test 08/18/16 08/18/16 18:28 18:35 White Blood Count 15.4 TH/MM3 Red Blood Count 2.51 MIL/MM3 Hemoglobin 7.2 GM/DL Hematocrit 22.5 % Mean Corpuscular Volume 89.7 FL Mean Corpuscular Hemoglobin 28.7 PG Mean Corpuscular Hemoglobin 32.0 % Concent Red Cell Distribution Width 17.6 % Platelet Count 285 TH/MM3 Mean Platelet Volume 8.7 FL Neutrophils (%) (Auto) 87.9 % Lymphocytes (%) (Auto) 6.2 % Monocytes (%) (Auto) 5.8 % Eosinophils (%) (Auto) 0.0 % Basophils (%) (Auto) 0.1 % Neutrophils # (Auto) 13.5 TH/MM3 Lymphocytes # (Auto) 1.0 TH/MM3 Monocytes # (Auto) 0.9 TH/MM3 Eosinophils # (Auto) 0.0 TH/MM3 Basophils # (Auto) 0.0 TH/MM3 CBC Comment DIFF FINAL Differential Comment Sodium Level 143 MEQ/L Potassium Level 3.0 MEQ/L Chloride Level 107 MEQ/L Carbon Dioxide Level 29.7 MEQ/L Anion Gap 6 MEQ/L Blood Urea Nitrogen 8 MG/DL Creatinine 0.73 MG/DL Estimat Glomerular Filtration 104 ML/MIN Rate Random Glucose 122 MG/DL Lactic Acid Level 0.9 mmol/L Calcium Level 7.6 MG/DL Total Bilirubin 0.4 MG/DL Aspartate Amino Transf 24 U/L (AST/SGOT) Alanine Aminotransferase 16 U/L (ALT/SGPT) Alkaline Phosphatase 140 U/L Total Protein 5.2 GM/DL Albumin 1.5 GM/DL Urine Color YELLOW Urine Turbidity CLOUDY Urine pH 6.5 Urine Specific [place] 1.019 Urine Protein 100 mg/dL Urine Glucose (UA) NEG mg/dL Urine Ketones NEG mg/dL Urine Occult Blood SMALL Urine Nitrite NEG Urine Bilirubin NEG Urine Urobilinogen LESS THAN 2.0 MG/DL Urine Leukocyte Esterase MOD Urine RBC 3 /hpf Urine WBC 36 /hpf Urine Squamous Epithelial 1 /hpf Cells Urine Calcium Oxalate Crystals OCC /hpf Urine Bacteria FEW /hpf Urine White Blood Cell Casts 1 /lpf Urine Mucus FEW /lpf Microscopic Urinalysis Comment CATH-CULTURE IND Differential Diagnosis Differential diagnosis includes sepsis, infected hip prosthesis, abscess, infected wound, cellulitis. Narrative Course The patient was initially evaluated by the previous physician, Dr. Knapp, please refer to initial history, physical, diagnostic evaluation, treatment modality plan. The patient was signed out at 7 PM laboratory evaluation pending and subsequent admission. Dr. Knapp states the patient had a previous washout of the left hip by his orthopedist, Dr. Campuzano. The patient has been on antibiotics and subsequently developed C. difficile, he is currently on oral and IV vancomycin. However, Dr. Knapp states when she removed the patient's dressing, there was purulent drainage from the wound and states the patient should be admitted for reevaluation by orthopedics for possible reevaluation and washout. Patient's white count is mildly elevated, UA was positive, patient was treated with Zosyn by the previous physician. I did log roll the patient to the right, the left hip does have sutures in place with foul-smelling drainage which is purulent. [facility] [employer]. The patient will need consultation with his orthopedic surgeon, Dr. Campuzano, tomorrow for reevaluation of the wound. The patient's potassium is low at 3.0, therefore, replacement intravenously was ordered. The patient will be kept nothing by mouth after midnight. Sepsis Criteria SIRS Criteria (2 or more): WBC > 28981, < 4000 or > 10% bands Sepsis Criteria (SIRS+source): Infect source susp/known Physician Communication Physician Communication The patient has [employer], therefore, [facility]. I discussed the patient with Dr. Fitzpatrick who agrees with admission. Diagnosis Primary Impression: Postoperative wound infection of left hip Qualified Code: T81.4XXA - Postoperative wound infection of left hip, initial encounter Additional Impressions: Leukocytosis Qualified Code: D72.829 - Leukocytosis, unspecified type Anemia Qualified Code: D64.9 - Anemia, unspecified type Admitting Information Admitting Physician Requests: Admit Condition: Stable Kalin Barrientos MD Aug 18, 2016 19:21
[2016-08-18 19:23] LABS: AUTOMATED NEUTROPHIL # 13.5 TH/MM3 (1.8-7.7); BASOPHIL % 0.1 % (0.0-2.0); HEMATOCRIT 22.5 % (39.0-51.0); HEMO FLAGS DIFF FINAL; LYMPH % 6.2 % (9.0-44.0); MEAN CELL VOLUME 89.7 FL (80.0-100.0); MEAN CORPUSCULAR HEMOGLOBIN 28.7 PG (27.0-34.0); MONO % 5.8 % (0.0-8.0); NEUT % 87.9 % (16.0-70.0); PLATELET COUNT 285 TH/MM3 (150-450); RED BLOOD COUNT 2.51 MIL/MM3 (4.50-5.90); RED CELL DISTRIBUTION WIDTH 17.6 % (11.6-17.2); WHITE BLOOD COUNT 15.4 TH/MM3 (4.0-11.0)
[2016-08-18 19:44] LABS: BACTERIA, URINE FEW /hpf; BLOOD, URINE SMALL (NEG); CALCIUM OXALATE CRYSTALS,URINE OCC /hpf; GLUCOSE,URINE NEG (NEG); KETONE, URINE NEG (NEG); MUCUS URINE FEW /lpf (OCC); NITRITE,URINE NEG (NEG); PH, URINE 6.5 (5.0-8.5); SQUAMOUS EPITHELIAL CELL URINE 1 /hpf (0-5); URINE COLOR YELLOW (YELLW/STRAW); WHITE BLOOD CELL CAST, URINE 1 /lpf
[2016-08-18] MEDS ORDERED: NUTR-215 PO (19:44)
[2016-08-18] MEDS ORDERED: [UNRECOGNIZED DRUG - CODE] IV (19:44)
[2016-08-18] MEDS ORDERED: VITA500T G-TUBE (19:44)
[2016-08-18] MEDS ORDERED: ZINC220T G-TUBE (19:44)
[2016-08-18] MEDS ORDERED: MULTLIQ7 G-TUBE (19:44)
[2016-08-18 19:47] LABS: COMMENT (UR) CATH-CULTURE IND; CULTURE IF INDICATED CATH CULTURE IND
[2016-08-18 19:54] LABS: ANION GAP 6 MEQ/L (5-15); AST (GOT) 24 U/L (15-37); BICARBONATE 29.7 MEQ/L (21.0-32.0); BLOOD UREA NITROGEN 8 MG/DL (7-18); CHLORIDE 107 MEQ/L (98-107); GLOMERULAR FILTRATION RATE 104 ML/MIN (>89); SODIUM (NA) 143 MEQ/L (136-145)
[2016-08-18 19:57] LABS: ALKALINE PHOSPHATASE 140 U/L (45-117); ALT (GPT) 16 U/L (12-78); TOTAL BILIRUBIN ADULT 0.4 MG/DL (0.2-1.0)
[2016-08-18 20:29] VITALS: BP 145/65; PULSE 91; RESP 18; O2SAT 93
[2016-08-18] MEDS ORDERED: NALOXONE HCL 0.4 MG/ML AMP IV PRN (20:30)
[2016-08-18] MEDS ORDERED: SODIUM CHLORIDE 0.9% FLUSH 5 ML FLUSH FLUSH PRN (20:30)
[2016-08-18] MEDS ORDERED: [UNRECOGNIZED DRUG - OTHER] PO SCH (20:45)
[2016-08-18] MEDS ORDERED: Vancomycin Consult Pharmacy 1 EA OTHER SCH (20:45)
[2016-08-18] MEDS ORDERED: NUTRITIONAL SUPPLEMENT PO SCH (20:45)
[2016-08-18] MEDS: VANCOMYCIN 500 MG VIAL (FOR ORAL USE ONLY) PO SCH (21:00)
[2016-08-18 21:43] VITALS: BP 135/74; PULSE 88; RESP 18; O2SAT 94
[2016-08-18] MEDS: SODIUM CHLORIDE 0.9% FLUSH 5 ML FLUSH FLUSH SCH (21:53)
[2016-08-18] MEDS: POTASSIUM CHLOR 20 MEQ PREMIX 100 ML IV SCH ×2 (21:53→22:14)
[2016-08-18] MEDS: ENOXAPARIN SODIUM 40 MG/0.4 ML SYRINGE SQ SCH (22:12)
[2016-08-18] MEDS: METOPROLOL TARTRATE 25 MG TAB PO SCH (22:13)
[2016-08-18] MEDS: TAMSULOSIN HCL 0.4 MG CAP PO SCH (22:13)
[2016-08-18] MEDS: FAMOTIDINE 20 MG TAB PO SCH (22:13)
[2016-08-18] MEDS: ASCORBIC ACID 500 MG TAB G-TUBE SCH (22:13)
[2016-08-18] MEDS: MAGNESIUM OXIDE 400 MG TAB G-TUBE SCH (22:13)
[2016-08-18] MEDS: NYSTATIN SUSP 500,000 U/5 ML CUP SWISH-SWAL SCH (22:15)
--- NOTE | 2016-08-18 23:35 | HHI.HP ---
[facility] Service [facility] Hospitalists Primary Care Physician Kimberly Branch MD Admission Diagnosis postoperative wound infection left hip, leukocytosis, anemia Diagnoses: (1) Postoperative wound infection of left hip (2) Abnormal urinalysis (3) Peripheral vascular disease (4) HTN (hypertension) (5) Anemia (6) Type 2 diabetes mellitus Chief Complaint: suspected infection post-op left hip Travel History International Travel<30 Days: No Contact w/Intl Traveler <30 Da: No Traveled to Known Affected Are: No History of Present Illness Mr. Newby is a 76-year-old male with a past medical history of Alzheimers dementia, type 2 diabetes mellitus, diabetic foot ulcers, hypertension, PVD, and left hip prosthesis infection, and CAD who presented from a local long-term for evaluation of reinfected left hip prosthesis. He had a hip fracture after a fall at home with surgical repair on 05/24/[address] Campuzano. Hospitalization went from May 08, 2016 through May 28, 2016. He was readmitted for prosthesis infection and was hospitalized from July 12 through August 12. Left hip resection arthroplasty was performed 08/03/[address] Campuzano. Left hip had MRSA isolated from surgical wound and right heel cellulitis. The patient is seen in the emergency room. Upon arrival in the room, he is noted to have blood on his left upper arm and has removed his PICC line. He is confused and unable to provide a reliable history. History is taken therefore from electronic medical record and from records that were reviewed from the custodial facility. The patient was discharged to a custodial facility on August 12 and had been placed on oral Levaquin for the left hip infection and oral vancomycin for C. difficile colitis diagnosed during the last hospital stay. While at the SNF, the staff at the facility started to notice yellow drainage coming from the left hip wound site and referred him to the emergency room for evaluation. . Review of Systems ROS Limitations: Poor Historian (unable to obtain reliable review of systems due to patient's dementia and confusion) Past Family Social History Past Medical History unable to obtain from patient due to dementia/poor historian - taken from EMR: Hypertension Coronary artery disease s/p CABG History of CVA with no residual deficits Diabetes mellitus Peripheral vascular disease with left lower extremity angioplasty due to left lower extremity gangrene Alzheimer's . Past Surgical History unable to obtain from patient due to dementia/poor historian - taken from EMR: Left bipolar hip arthroplasty Dr. Campuzano 05/24/16 Left femoropopliteal bypass with endarterectomy CABG . Reported Medications Reported Meds & Active Scripts Active Levaquin (Levofloxacin) 750 Mg Tab 750 Mg PO DAILY 38 Days Vancomycin (Vancomycin HCl) 125 Mg Cap 125 Mg PO QID Ambien (Zolpidem Tartrate) 5 Mg Tab 5 Mg PO HS PRN Potassium Chloride Microencaps 20 Meq Tab 20 Meq PO DAILY Metoprolol Tartrate 25 Mg Tab 25 Mg PO Q12HR Magnesium Oxide 241.3 Mg Tab 400 Mg G-TUBE Q12HR Famotidine 20 Mg Tab 20 Mg PO Q12HR Dronabinol 5 Mg Cap 5 Mg PO BID@11,16 Cardizem CD 24 HR (Diltiazem CD 24 HR) 120 Mg Caper 120 Mg PO DAILY Hydrocodone-Acetaminophen 5-325 mg Tab 1 Tab PO Q4H PRN Novolog Inj (Insulin Aspart) 1,000 Unit/10 Ml Vial 1-9 Units SQ ACHS Max dose at bedtime:( )units; sugars less than 70,(0)units; sugars 150-199,(1) unit; sugars 200-249,(3) units; sugars 250-299,(5) units; sugars 300-349,(7) units; sugars greater than 349,(9) units Nystatin Liq 100,000 unit/ml Susp 5 Ml SWISH-SWAL QID Reported Vancomycin Inj (Vancomycin HCl) 750 Mg Inj 750 Mg IV DAILY Glucerna 1.5 Angelo (Nutritional Supplements) 1 Liq Liq 15 Ml PO CONTINUOUS Vitamin C (Ascorbic Acid) 500 Mg Tab 500 Mg G-TUBE BID Zinc Sulfate 220 Mg Tab 220 Mg G-TUBE DAILY Multivitamin Liq (Multiple Vitamins W/ Minerals Liq) 1 Liq Liq 15 Ml G-TUBE DAILY Flomax (Tamsulosin HCl) 0.4 Mg Cap 0.4 Mg PO HS Clopidogrel (Clopidogrel Bisulfate) 75 Mg Tab 75 Mg PO DAILY Atorvastatin (Atorvastatin Calcium) 20 Mg Tab 20 Mg PO DAILY . Allergies: Coded Allergies: Dutch Cheese (Verified Allergy, Unknown, 08/18/16) *MDRO Multi-Drug Resistant Organism (Verified Adverse Reaction, Unknown, MRSA, 08/18/16) MRSA (hip) - 07/12/16 Active Ordered Medications Current Medications Piperacillin Sod/ Tazobactam Sod 100 ml @ 200 mls/hr ONCE STAT IV Last administered on 08/18/16 20:30; Start 08/18/16 at 17:52; Stop 08/18/16 at 18:21; Status DC Vancomycin HCl 1000 mg/Sodium Chloride 250 ml @ 250 mls/hr ONCE STAT IV Last administered on 08/18/16 21:19; Start 08/18/16 at 17:52; Stop 08/18/16 at 18:51; Status DC Sodium Chloride 1,000 ml @ 1,000 mls/hr Q1H ONCE IV Last administered on 18:52; Start 08/18/16 at 17:52; Stop 08/18/16 at 18:51; Status DC Sodium Chloride 1,000 ml @ 1,000 mls/hr Q1H ONCE IV Last administered on 18:52; Start 08/18/16 at 17:52; Stop 08/18/16 at 18:51; Status DC Sodium Chloride 100 ml @ 1,000 mls/hr Q6M ONCE IV ; Start 08/18/16 at 17:52; Stop 08/18/16 at 17:57; Status DC Potassium Chloride (KCl 20 Meq Premix Inj) 100 ml @ 50 mls/hr Q2H IV Last administered on 08/18/16 22:14; Start 08/18/16 at 20:15; Stop 08/19/16 at 00:14; Status DC IV Flush (NS Flush) 2 ml UNSCH PRN FLUSH FLUSH AFTER USING IV ACCESS; Start 08/18/16 at 20:30 IV Flush (NS Flush) 2 ml BID FLUSH Last administered on 08/18/16 21:53; Start 08/18/16 at 21:00 Enoxaparin Sodium (Lovenox Inj) 40 mg Q24H SQ Last administered on 08/18/16 22: 12; Start 08/18/16 at 21:00 Naloxone HCl (Narcan Inj) 0.4 mg UNSCH PRN IV SEE LABEL COMMENTS; Start at 20:30 Ascorbic Acid (Vitamin C) 500 mg BID G-TUBE Last administered on 08/18/16 22:13 ; Start 08/18/16 at 21:00 Atorvastatin Calcium (Lipitor) 20 mg DAILY PO ; Start 08/19/16 at 09:00 Clopidogrel Bisulfate (Plavix) 75 mg DAILY PO ; Start 08/19/16 at 09:00 Diltiazem HCl (Cardizem Cd) 120 mg DAILY PO ; Start 08/19/16 at 09:00 Dronabinol (Marinol) 5 mg BID@11,16 PO ; Start 08/19/16 at 11:00 Famotidine (Pepcid) 20 mg Q12HR PO Last administered on 08/18/16 22:13; Start 08/18/16 at 21:00 Levofloxacin (Levaquin) 750 mg DAILY PO ; Start 08/19/16 at 09:00 Magnesium Oxide (Mag-Ox) 400 mg Q12HR G-TUBE Last administered on 08/18/16 22: 13; Start 08/18/16 at 21:00 Metoprolol Tartrate (Lopressor) 25 mg Q12HR PO Last administered on 08/18/16 22 :13; Start 08/18/16 at 21:00 Nystatin (Mycostatin Liq) 5 ml QID SWISH-SWAL Last administered on 08/18/16 22 :15; Start 08/18/16 at 21:00 Potassium Chloride (KCl) 20 meq DAILY PO ; Start 08/19/16 at 09:00 Tamsulosin HCl (Flomax) 0.4 mg HS PO Last administered on 08/18/16 22:13; Start 08/18/16 at 21:00 Vancomycin HCl (VANCOMYCIN for oral use only) 125 mg QID PO Last administered on 08/18/16 21:00; Start 08/18/16 at 21:00 Zinc Sulfate (Zinc Sulfate) 220 mg DAILY G-TUBE ; Start 08/19/16 at 09:00 Zolpidem Tartrate (Ambien) 5 mg HS PRN PO INSOMNIA; Start 08/18/16 at 20:45 Non-Formulary Medication 15 ml DAILY G-TUBE ; Start 08/19/16 at 09:00; Status UNV Non-Formulary Medication 15 ml 15 ml CONTINUOUS PO ; Start 08/18/16 at 20:45; Status UNV Pharmacy Profile Note 0 ml @ 0 mls/hr UNSCH OTHER ; Start 08/18/16 at 20:45 Piperacillin Sod/ Tazobactam Sod (Zosyn 4.5 Gm Premix) 100 ml @ 200 mls/hr Q6H IV Last administered on 08/19/16 03:12; Start 08/19/16 at 03:00 Multivitamins/ Minerals Therapeutic 1 tab 1 tab DAILY GT ; Start 08/19/16 at 09: 00 Vancomycin HCl/ Sodium Chloride (Vancomycin Inj/ NS 250 ml Inj) 262.5 ml @ 250 mls/hr Q12H IV ; Start 08/19/16 at 08:00 Miscellaneous Information SPECIFIC LAB TO BE DRAWN:VANCO TROUGH DATE TO BE DR... ONCE ONCE XX ; Start 08/20/16 at 07:45; Stop 08/20/16 at 07:46 Furosemide (Lasix Inj) 40 mg ONCE ONCE IV PUSH Last administered on 08/19/16 00:17; Start 08/19/16 at 00:00; Stop 08/19/16 at 00:01; Status DC Potassium Bicarbonate (Effer-K Eff) 50 meq ONCE ONCE GT Last administered on 00:16; Start 08/19/16 at 00:00; Stop 08/19/16 at 00:01; Status DC . Family History unable to obtain . Social History unable to obtain from patient due to dementia/poor historian - taken from EMR Tobacco: Denies Alcohol: Denies Illicit Drugs: Denies . Physical Exam Vital Signs Vital Signs Date Time Temp Pulse Resp B/P Pulse Ox O2 Delivery O2 Flow Rate FiO2 08/18/16 21:43 88 18 135/74 94 Nasal Cannula 4 08/18/16 20:29 91 18 145/65 93 Nasal Cannula 4 08/18/16 18:47 83 20 140/63 97 Nasal Cannula 4 08/18/16 18:04 93 Nasal Cannula 4 08/18/16 18:04 93 4 08/18/16 18:00 98.8 87 18 152/81 93 Physical Exam GENERAL: This is a chronically ill-appearing male patient, bleeding from left upper extremity where he removed his PICC line shortly before arrival. SKIN: No rashes, ecchymoses. Cool and dry. HEAD: Atraumatic. Normocephalic. EYES: No scleral icterus. No injection or drainage. ENT: Nose without bleeding, purulent drainage. NECK: Trachea midline. No JVD. CARDIOVASCULAR: Regular rate and rhythm without murmurs, gallops, or rubs. RESPIRATORY: Bibasilar crepitations auscultated. Breath sounds equal bilaterally. No wheezes or rhonchi. GASTROINTESTINAL: Abdomen soft, non-tender, nondistended. No guarding. MUSCULOSKELETAL: Extremities without clubbing, cyanosis. No calf tenderness. Unable to roll patient as he is hollering that I was hurting him when I was just trying to visually inspect the right leg. He was assured that I was not touching him but he continued to get more agitated as I attempted to visualize the lower extremities. NEUROLOGICAL: Patient is confused to person place and time. . Laboratory Laboratory Tests Test 08/18/16 08/18/16 08/18/16 18:28 18:35 22:35 White Blood Count 15.4 Red Blood Count 2.51 Hemoglobin 7.2 Hematocrit 22.5 Mean Corpuscular Volume 89.7 Mean Corpuscular Hemoglobin 28.7 Mean Corpuscular Hemoglobin 32.0 Concent Red Cell Distribution Width 17.6 Platelet Count 285 Mean Platelet Volume 8.7 Neutrophils (%) (Auto) 87.9 Lymphocytes (%) (Auto) 6.2 Monocytes (%) (Auto) 5.8 Eosinophils (%) (Auto) 0.0 Basophils (%) (Auto) 0.1 Neutrophils # (Auto) 13.5 Lymphocytes # (Auto) 1.0 Monocytes # (Auto) 0.9 Eosinophils # (Auto) 0.0 Basophils # (Auto) 0.0 CBC Comment DIFF FINAL Differential Comment Sodium Level 143 Potassium Level 3.0 Chloride Level 107 Carbon Dioxide Level 29.7 Anion Gap 6 Blood Urea Nitrogen 8 Creatinine 0.73 Estimat Glomerular Filtration 104 Rate Random Glucose 122 Lactic Acid Level 0.9 Calcium Level 7.6 Total Bilirubin 0.4 Aspartate Amino Transf 24 (AST/SGOT) Alanine Aminotransferase 16 (ALT/SGPT) Alkaline Phosphatase 140 Total Protein 5.2 Albumin 1.5 Urine Color YELLOW Urine Turbidity CLOUDY Urine pH 6.5 Urine Specific [place] 1.019 Urine Protein 100 Urine Glucose (UA) NEG Urine Ketones NEG Urine Occult Blood SMALL Urine Nitrite NEG Urine Bilirubin NEG Urine Urobilinogen LESS THAN 2.0 Urine Leukocyte Esterase MOD Urine RBC 3 Urine WBC 36 Urine Squamous Epithelial 1 Cells Urine Calcium Oxalate Crystals OCC Urine Bacteria FEW Urine White Blood Cell Casts 1 Urine Mucus FEW Microscopic Urinalysis Comment CATH-CULTURE IND Blood Type AB POSITIVE Date/Time Procedure Status Source Growth 08/18/16 18:35 Urine Culture Received Urine Catheterized Urine Pending 08/18/16 18:28 Aerobic Blood Culture Received Blood Peripheral Pending 08/18/16 18:28 Anaerobic Blood Culture Received Blood Peripheral Pending 08/18/16 17:55 Gram Stain Received Wound Hip Pending 08/18/16 17:55 Wound Culture Received Wound Hip Pending Result Diagram: 08/18/16 1828 08/18/161827 Imaging Last Impressions Chest X-Ray 08/18/16 175 Signed Impressions: Service Date/Time: Thursday, August 18, 2016 18:16 - CONCLUSION: 1. Bilateral lung densities greater on the left with bilateral pleural effusions. Jose A Small MD . Assessment and Plan Problem List: (1) Left hip prosthetic joint infection ICD Code: T84.52XA Status: Acute (2) Abnormal urinalysis ICD Code: R82.90 Status: Acute (3) Type 2 diabetes mellitus ICD Code: E11.9 Status: Chronic (4) PVD (peripheral vascular disease) ICD Code: I73.9 Status: Chronic (5) HTN (hypertension) ICD Code: I10 Status: Chronic (6) Anemia ICD Code: D64.9 Status: Acute Assessment and Plan Mr. Knapp is a 76-year-old male with a past medical history of Alzheimers dementia, type 2 diabetes mellitus, diabetic foot ulcers, hypertension, PVD, and left hip prosthesis infection, and CAD who presented from a local long-term for evaluation of reinfected left hip prosthesis. Left hip prosthesis infection - WBC 15.4 with neutrophilia - Consult infectious disease - Vancomycin IV with pharmacy consult for assistance with therapeutic dosing and monitoring - Zosyn 4.5 g IV every 6 hours - consult physical therapy Recent Cdiff colitis - resume po vanco at previous dose Abnormal UA - urine culture pending - await results - antibiotics started above Diabetes Mellitus - Accuhecks before meals and at bedtime with low-dose NovoLog sliding scale coverage - Treatment protocol for hypoglycemia ordered - Monitor blood glucose readings/trends and adjust treatment as indicated PVD - Continue home Plavix Hypertension - resume home medications - Monitor blood pressure readings and adjust treatments as needed Anemia - H&H 7.2/22.5 on admission - was 9.2 and 26.7 upon discharge - We'll recheck CBC in a.m. and transfuse if needed - be cautious for fluid overload - patient has a history of EF 35 - 40% per echo 07/17/16 - received NS 1 liter bolus x 2 (ordered Lasix 40 mg IV and Potassium 50 meq) DVT prophylaxis - Lovenox 40 mg subcutaneous every 24 hours - case management consult to assist with discharge planning Written by Elda Alexander, acting as scribe for Dr. Fitzpatrick on 08/18/16 at 23:35. .All or portions of this note were transcribed by scribe [Elda Alexander]. I, Dr. Andra Fitzpatrick personally performed the history, physical exam, and medical decision making; and confirmed the accuracy of the information in the transcribed note. Authenticated by Dr. Andra Fitzpatrick on 08/18/16 at 23:35. Discussed Condition With ER physician and RN Physician Certification 2 Midnight Certification Type: Admission for Inpatient Services Order for Inpatient Services The services are ordered in accordance with Medicare regulations or non- Medicare payer requirements, as applicable. In the case of services not specified as inpatient-only, they are appropriately provided as inpatient services in accordance with the 2-midnight benchmark. Estimated LOS (days): 3 days is the estimated time the patient will need to remain in the hospital, assuming treatment plan goals are met and no additional complications. Post-Hospital Plan: SNF Problem Qualifiers (1) Postoperative wound infection of left hip: Qualified Code: T81.4XXA - Postoperative wound infection of left hip, initial encounter (2) Anemia: Qualified Code: D64.9 - Anemia, unspecified type (3) Type 2 diabetes mellitus: Elda Alexander Aug 18, 2016 23:35 Andra Fitzpatrick MD Aug 19, 2016 09:03
[2016-08-19] VITALS (10 sets, daily range): BP systolic 123–152; BP diastolic 59–68; PULSE 60–95; RESP 18–20; TEMP 97.1; O2SAT 94–100
[2016-08-19] MEDS ORDERED: FUROSEMIDE 40 MG/4 ML VIAL IV PUSH ONE
[2016-08-19] MEDS ORDERED: POTASSIUM BICARBONATE 25 MEQ EFFERVESCENT TAB GT ONE
[2016-08-19] MEDS: PIPERACIL-TAZO 4.5 GM PREMIX 100 ML IV SCH ×4 (03:12→22:12)
[2016-08-19] MEDS ORDERED: DEXTROSE 50% IN WATER 50 ML VIAL(D50) IV PUSH PRN (06:15)
[2016-08-19] MEDS ORDERED: GLUCAGON 1 MG/ML VIAL OTHER PRN (06:15)
[2016-08-19] MEDS ORDERED: VANCOMYCIN INJ 1,250 MG in SODIUM CHLOR 0.9% 250 ML INJ 250 ML IV SCH (08:00)
[2016-08-19] MEDS ORDERED: MULTIPLE VITAMINS G-TUBE SCH (09:00)
[2016-08-19] MEDS ORDERED: LEVOFLOXACIN 750 MG TAB PO SCH (09:00)
[2016-08-19] MEDS: ZINC SULFATE 220 MG CAP G-TUBE SCH (09:00)
[2016-08-19] MEDS ORDERED: MINERALS G-TUBE SCH (09:00)
[2016-08-19] MEDS: VANCOMYCIN 500 MG VIAL (FOR ORAL USE ONLY) PO SCH ×3 (09:00→21:00)
[2016-08-19] MEDS: NYSTATIN SUSP 500,000 U/5 ML CUP SWISH-SWAL SCH ×3 (09:00→21:00)
[2016-08-19 09:05] LABS: AUTOMATED NEUTROPHIL # 13.9 TH/MM3 (1.8-7.7); BASOPHIL % 0.3 % (0.0-2.0); EOSINOPHIL % 0.2 % (0.0-4.0); HEMATOCRIT 27.3 % (39.0-51.0); HEMO FLAGS DIFF FINAL; LYMPH % 7.5 % (9.0-44.0); LYMPHOCYTE # 1.2 TH/MM3 (1.0-4.8); MEAN CELL VOLUME 89.9 FL (80.0-100.0); MEAN CORPUSCULAR HGB CONC 32.2 % (32.0-36.0); MONO % 5.7 % (0.0-8.0); NEUT % 86.3 % (16.0-70.0); PLATELET COUNT 354 TH/MM3 (150-450); RED BLOOD COUNT 3.04 MIL/MM3 (4.50-5.90); RED CELL DISTRIBUTION WIDTH 17.6 % (11.6-17.2); WHITE BLOOD COUNT 16.1 TH/MM3 (4.0-11.0)
--- NOTE | 2016-08-19 09:06 | HHI.PR ---
Subjective Remarks f/u for possible hip infection. patient is a poor historian due to Dementia. He is able to give me first and last name and says NO to every question I asked. Denied any pain. no events since last seen. patient in ED for holding. Objective Vitals Vital Signs Date Time Temp Pulse Resp B/P Pulse Ox O2 Delivery O2 Flow Rate FiO2 08/19/16 06:34 76 18 145/67 94 Nasal Cannula 4 08/18/16 21:43 88 18 135/74 94 Nasal Cannula 4 08/18/16 20:29 91 18 145/65 93 Nasal Cannula 4 08/18/16 18:47 83 20 140/63 97 Nasal Cannula 4 08/18/16 18:04 93 Nasal Cannula 4 08/18/16 18:04 93 4 08/18/16 18:00 98.8 87 18 152/81 93 Result Diagram: 08/18/16182708/18/161827 Objective Remarks GENERAL:thin frail male in NAD CARDIOVASCULAR: Regular rate and rhythm without murmurs, gallops, or rubs. RESPIRATORY: Breath sounds equal bilaterally. No accessory muscle use. GASTROINTESTINAL: Abdomen soft, non-tender, nondistended. + stools are loose. MSK: no able to appreciate discharge from wound. Difficult to mobilized. No nurse present. Medications and IVs Current Medications Piperacillin Sod/ Tazobactam Sod 100 ml @ 200 mls/hr ONCE STAT IV Last administered on 08/18/16 20:30; Start 08/18/16 at 17:52; Stop 08/18/16 at 18:21; Status DC Vancomycin HCl 1000 mg/Sodium Chloride 250 ml @ 250 mls/hr ONCE STAT IV Last administered on 08/18/16 21:19; Start 08/18/16 at 17:52; Stop 08/18/16 at 18:51; Status DC Sodium Chloride 1,000 ml @ 1,000 mls/hr Q1H ONCE IV Last administered on 18:52; Start 08/18/16 at 17:52; Stop 08/18/16 at 18:51; Status DC Sodium Chloride 1,000 ml @ 1,000 mls/hr Q1H ONCE IV Last administered on 18:52; Start 08/18/16 at 17:52; Stop 08/18/16 at 18:51; Status DC Sodium Chloride 100 ml @ 1,000 mls/hr Q6M ONCE IV ; Start 08/18/16 at 17:52; Stop 08/18/16 at 17:57; Status DC Potassium Chloride (KCl 20 Meq Premix Inj) 100 ml @ 50 mls/hr Q2H IV Last administered on 08/18/16 22:14; Start 08/18/16 at 20:15; Stop 08/19/16 at 00:14; Status DC IV Flush (NS Flush) 2 ml UNSCH PRN FLUSH FLUSH AFTER USING IV ACCESS; Start 08/18/16 at 20:30 IV Flush (NS Flush) 2 ml BID FLUSH Last administered on 08/18/16 21:53; Start 08/18/16 at 21:00 Enoxaparin Sodium (Lovenox Inj) 40 mg Q24H SQ Last administered on 08/18/16 22: 12; Start 08/18/16 at 21:00 Naloxone HCl (Narcan Inj) 0.4 mg UNSCH PRN IV SEE LABEL COMMENTS; Start at 20:30 Ascorbic Acid (Vitamin C) 500 mg BID G-TUBE Last administered on 08/18/16 22:13 ; Start 08/18/16 at 21:00 Atorvastatin Calcium (Lipitor) 20 mg DAILY PO ; Start 08/19/16 at 09:00 Clopidogrel Bisulfate (Plavix) 75 mg DAILY PO ; Start 08/19/16 at 09:00 Diltiazem HCl (Cardizem Cd) 120 mg DAILY PO ; Start 08/19/16 at 09:00 Dronabinol (Marinol) 5 mg BID@11,16 PO ; Start 08/19/16 at 11:00 Famotidine (Pepcid) 20 mg Q12HR PO Last administered on 08/18/16 22:13; Start 08/18/16 at 21:00 Levofloxacin (Levaquin) 750 mg DAILY PO ; Start 08/19/16 at 09:00 Magnesium Oxide (Mag-Ox) 400 mg Q12HR G-TUBE Last administered on 08/18/16 22: 13; Start 08/18/16 at 21:00 Metoprolol Tartrate (Lopressor) 25 mg Q12HR PO Last administered on 08/18/16 22 :13; Start 08/18/16 at 21:00 Nystatin (Mycostatin Liq) 5 ml QID SWISH-SWAL Last administered on 08/18/16 22 :15; Start 08/18/16 at 21:00 Potassium Chloride (KCl) 20 meq DAILY PO ; Start 08/19/16 at 09:00 Tamsulosin HCl (Flomax) 0.4 mg HS PO Last administered on 08/18/16 22:13; Start 08/18/16 at 21:00 Vancomycin HCl (VANCOMYCIN for oral use only) 125 mg QID PO Last administered on 08/18/16 21:00; Start 08/18/16 at 21:00 Zinc Sulfate (Zinc Sulfate) 220 mg DAILY G-TUBE ; Start 08/19/16 at 09:00 Zolpidem Tartrate (Ambien) 5 mg HS PRN PO INSOMNIA; Start 08/18/16 at 20:45 Non-Formulary Medication 15 ml DAILY G-TUBE ; Start 08/19/16 at 09:00; Status UNV Non-Formulary Medication 15 ml 15 ml CONTINUOUS PO ; Start 08/18/16 at 20:45; Status UNV Pharmacy Profile Note 0 ml @ 0 mls/hr UNSCH OTHER ; Start 08/18/16 at 20:45 Piperacillin Sod/ Tazobactam Sod (Zosyn 4.5 Gm Premix) 100 ml @ 200 mls/hr Q6H IV Last administered on 08/19/16 03:12; Start 08/19/16 at 03:00 Multivitamins/ Minerals Therapeutic 1 tab 1 tab DAILY GT ; Start 08/19/16 at 09: 00 Vancomycin HCl/ Sodium Chloride (Vancomycin Inj/ NS 250 ml Inj) 262.5 ml @ 250 mls/hr Q12H IV ; Start 08/19/16 at 08:00; Status Cancel Miscellaneous Information SPECIFIC LAB TO BE DRAWN:VANCO TROUGH DATE TO BE DRLinh.. ONCE ONCE XX ; Start 08/20/16 at 07:45; Stop 08/20/16 at 07:46 Furosemide (Lasix Inj) 40 mg ONCE ONCE IV PUSH Last administered on 08/19/16 00:17; Start 08/19/16 at 00:00; Stop 08/19/16 at 00:01; Status DC Potassium Bicarbonate (Effer-K Eff) 50 meq ONCE ONCE GT Last administered on t 00:16; Start 08/19/16 at 00:00; Stop 08/19/16 at 00:01; Status DC Dextrose (D50w (Vial) Inj) 25 ml UNSCH PRN IV PUSH HYPOGLYCEMIA-SEE COMMENTS; Start 08/19/16 at 06:15 Glucagon (Glucagon Inj) 1 mg UNSCH PRN OTHER HYPOGLYCEMIA-SEE COMMENTS; Start 08/19/16 at 06:15 Insulin Aspart (NovoLOG SUPPLEMENTAL SCALE) 1 ACHS SLIDING SCALE SQ ; Start 08/19/16 at 07:00 A/P Problem List: (1) Left hip prosthetic joint infection ICD Code: T84.52XA Status: Acute (2) Abnormal urinalysis ICD Code: R82.90 Status: Acute (3) Type 2 diabetes mellitus ICD Code: E11.9 Status: Chronic (4) PVD (peripheral vascular disease) ICD Code: I73.9 Status: Chronic (5) HTN (hypertension) ICD Code: I10 Status: Chronic (6) Anemia ICD Code: D64.9 Status: Acute Assessment and Plan Mr. Knapp is a 76-year-old male with a past medical history of Alzheimers dementia, type 2 diabetes mellitus, diabetic foot ulcers, hypertension, PVD, and left hip prosthesis infection, and CAD who presented from a local [facility] for evaluation of reinfected left hip prosthesis. Left hip prosthesis infection - WBC 15.4 with neutrophilia. pending repeat CBC today. -on zosyn and vancomycin. - Vancomycin being managed by pharmacy. - if this is a suspected reinfection of left hip prosthesis would also consult Ortho, Dr. Campuzano. Abnormal UA - urine culture pending - await results - antibiotics started above Diabetes Mellitus - Accuhecks before meals and at bedtime with low-dose NovoLog sliding scale coverage - Treatment protocol for hypoglycemia ordered - Monitor blood glucose readings/trends and adjust treatment as indicated PVD - Continue home Plavix Hypertension - continue home medication. - Monitor blood pressure readings and adjust treatments as needed Anemia -no signs of active bleeding. - H&H 7.2/22.5 on admission - was 9.2 and 26.7 upon discharge - pending CBC in a.m. and transfuse if needed - be cautious for fluid overload - patient has a history of EF 35 - 40% per echo 07/17/16 - received NS 1 liter bolus x 2 (ordered Lasix 40 mg IV and Potassium 50 meq) Dementia -seems to be at baseline. DVT prophylaxis - Lovenox 40 mg subcutaneous every 24 hours Problem Qualifiers (1) Type 2 diabetes mellitus: (2) Anemia: Qualified Code: D64.9 - Anemia, unspecified type Gypsy Crooks MD Aug 19, 2016 09:05
[2016-08-19 09:13] LABS: BICARBONATE 26.9 MEQ/L (21.0-32.0); POTASSIUM 3.7 MEQ/L (3.5-5.1)
[2016-08-19] MEDS: METOPROLOL TARTRATE 25 MG TAB PO SCH ×2 (09:13→21:00)
[2016-08-19] MEDS: FAMOTIDINE 20 MG TAB PO SCH ×2 (09:13→22:12)
[2016-08-19] MEDS: CLOPIDOGREL 75 MG TAB PO SCH ×2 (09:13→10:46)
[2016-08-19] MEDS: POTASSIUM CHLORIDE 20 MEQ CONTROLLED RELEASE TAB PO SCH (09:13)
[2016-08-19] MEDS: MAGNESIUM OXIDE 400 MG TAB G-TUBE SCH ×2 (09:13→22:12)
[2016-08-19] MEDS: SODIUM CHLORIDE 0.9% FLUSH 5 ML FLUSH FLUSH SCH (09:14)
[2016-08-19] MEDS: INSULIN ASPART SUPPLEMENTAL SCALE SQ SCH ×4 (10:05→21:00)
[2016-08-19] MEDS: ASCORBIC ACID 500 MG TAB G-TUBE SCH ×2 (10:46→22:12)
[2016-08-19] MEDS: ATORVASTATIN 20 MG TAB PO SCH (10:46)
[2016-08-19] MEDS: DRONABINOL 5 MG CAP PO SCH ×2 (10:46→16:00)
[2016-08-19] MEDS ORDERED: ePHEDrine/NS 25 MG/5 ML SYR IV ONE (12:59)
[2016-08-19] MEDS ORDERED: PHENYLEPH/NS 1000 MCG/10 ML SYR IV ONE (12:59)
[2016-08-19] MEDS ORDERED: NEOSTIGMINE 3 MG/3 ML SYR IV ONE (12:59)
[2016-08-19] MEDS ORDERED: ONDANSETRON HCL 4 MG/2 ML VIAL IV PUSH ONE (12:59)
[2016-08-19] MEDS ORDERED: EPINEPHrine HCL (1:10,000) 1 MG/10 ML SYRINGE IV ONE (12:59)
[2016-08-19] MEDS ORDERED: VASOPRESSIN INJ 20 UNITS/ML VIAL IV ONE (12:59)
[2016-08-19] MEDS ORDERED: PROPOFOL 200 MG/20 ML AMP IV ONE (12:59)
--- NOTE | 2016-08-19 13:00 | PD.ORT.PN ---
Subjective Subjective Remarks Mr Newby is laying comfortably in bed in emergency department, no family at bedside, pleasantly confused. Orthopaedic evaluation was requested as patient was taken to ER from [facility] after purulent discharge was noticed from left hip incision yesterday. Patient's orthopaedic surgical history includes: left hip bipolar arthroplasty 05/24/16 and left hip resection of arthroplasty 08/03/[address] Lkue Campuzano. Mr Newyb has a long complicated history, including several infections due diminished functional status and poor health, thus he underwent a girdle stone arthroplasty. See previous medical charts for details, infections include C. Diff, left hip prosthesis infection, diabetic foot ulcers and pressure ulcers. Upon patient's last discharge he was placed on oral antibiotics and followed closely by both infectious disease and medical team. (Mary Ellen Pike) Subjective Remarks During his previous hospitalization the patient did grow MRSA and Proteus. He had significant decubiti over the initial tuberosity and sacrum. The patient was discharged on vancomycin. (Luke Campuzano MD) Objective Vitals Vital Signs Date Time Temp Pulse Resp B/P Pulse Ox O2 Delivery O2 Flow Rate FiO2 08/19/16 10:43 71 20 128/68 98 Nasal Cannula 4 08/19/16 10:03 78 123/59 94 Nasal Cannula 4 08/19/16 09:15 90 18 152/67 94 Nasal Cannula 4 08/19/16 06:34 76 18 145/67 94 Nasal Cannula 4 08/18/16 21:43 88 18 135/74 94 Nasal Cannula 4 08/18/16 20:29 91 18 145/65 93 Nasal Cannula 4 08/18/16 18:47 83 20 140/63 97 Nasal Cannula 4 08/18/16 18:04 93 Nasal Cannula 4 08/18/16 18:04 93 4 08/18/16 18:00 98.8 87 18 152/81 93 I/O 08/18/16 08/18/16 08/18/16 08/19/16 08/19/16 08/19/16 07:00 15:00 23:00 07:00 15:00 23:00 Output Total 1800 ml Balance -1800 ml Output Urine Total 1800 ml # Bowel Movements 1 (Mary Ellen Pike) Result Diagram: 08/19/16 0820 08/19/16 0820 Imaging Last 24 hours Impressions Chest X-Ray 08/18/16 1052 Signed Impressions: Service Date/Time: Thursday, August 18, 2016 18:16 - CONCLUSION: 1. Bilateral lung densities greater on the left with bilateral pleural effusions. Jose A Small MD Procedures left hip bipolar arthroplasty 05/24/16 left hip resection of arthroplasty 08/03/16 Objective Remarks LLE: Leg was externally rotated initially, with assistance for positioning patient is able to extend leg and internally rotate, ROM of left hip elicits minimal pain, left hip incision has surrounding erythema proximal greater than distal, erythema extends approximately 3 inches anterior and posterior of wound , no warmth is appreciated, sutures are still intact, purulent discharge is noted at proximal end of incision and on left hip debrided eschar, wound is actively draining, incision line has healed on distal end. Multiple diabetic foot ulcers and skin tears appreciated on lower extremities. (Mary Ellen Pike) Objective Remarks There is fluctuance at the proximal aspect of the incision. (Luke Campuzano MD ) Assessment & Plan Assessment and Plan It is suspected that this patient will have difficulty clearing left hip infection due to long complicated history of prior infections. Recommendations are given for irrigation and debridement with wound vac application to left hip. Consent will most likely be acquired from patient's . Patient will most likely be taken to OR later this afternoon by Dr Campuzano. Keep patient NPO. Hold Lovenox today. Wound cultures pending. Patient will be followed closely. (Mary Ellen Pike) Assessment and Plan The exam, history, and the medical decision-making described in the above note were completed with the assistance of the mid-level provider. I reviewed and agree with the findings presented. I attest that I had a [id number] encounter with the patient on the same day, and personally performed and documented my assessment and findings in the medical record. (Luke Campuzano MD) Mary Ellen Pike Aug 19, 2016 13:00 Luke Campuzano MD Aug 19, 2016 18:48
[2016-08-19] MEDS ORDERED: GENTAMICIN SULFATE 80 MG/2 ML VIAL ONE (14:46)
[2016-08-19] MEDS: DILTIAZEM-CD 120 MG CAP ER PO SCH (16:05)
[2016-08-19] MEDS: MULTIVITAMINS/MINERALS THERAPEUTIC TAB GT SCH (16:05)
[2016-08-19] MEDS ORDERED: SUGAMMADEX SODIUM 200 MG/2 ML VIAL IV PUSH ONE ×2 (16:45)
[2016-08-19] MEDS ORDERED: FAMOTIDINE 20 MG/2 ML VIAL ONE (16:46)
[2016-08-19] MEDS ORDERED: NEOMYCIN/POLYMYXIN 1 ML G.U. IRRIGANT IR ONE (18:00)
[2016-08-19] MEDS ORDERED: fentaNYL CITRATE 250 MCG/5 ML AMP ONE (19:03)
--- NOTE | 2016-08-19 19:09 | PD.OP ---
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 Irrigation and debridement left hip with application of wound VAC 2. Debridement left ischial decubitus with partial closure and application of wound VAC Surgeon: Luke Campuzano Afternoon Babysitter(s): Mary Ellen Pike PA-C (Ashley) The surgical procedure was assisted by my physician's insurance sales assistant. Her presence was necessary throughout the case for manipulation and positioning of the surgical extremity. My PA was assisting me throughout the duration of this procedure. The skill set of the physician insurance sales assistant was medically necessary to complete this procedure. During the surgical case the ophthalmology surgical technician was working at the back table and the physician insurance sales assistant was directly assisting me. Operation and Findings: Indications: This 76-year-old male with multiple medical problems is status post a bipolar hip arthroplasty for femoral neck fracture. The patient developed decubiti over his sacrum and hip regions and subsequently a deep infection of the hip which grew MRSA and Proteus. He also currently has C diff. He has several ulcerations of his extremity. It was elected at the initial irrigation debridement to perform a Girdlestone arthroplasty. The patient was discharged to halfway with antibiotic therapy and presented today after being sent by the halfway secondary to increasing drainage from the hip region. After further review of the wound is recommended he undergo irrigation debridement with possible application of VAC therapy. Procedure and findings: The patient was taken to the operative suite and after undergoing an adequate level of general anesthesia was placed in the lateral decubitus position on the operating table. Examination of the hip revealed moderate surrounding erythema of the incision which was closed but had a draining sinus at the most proximal aspect. There was a dressing in place. The patient was soiled with feces including the overlying dressing. The decubitus over the initial tuberosity had dark eschar and fibrinous exudate as well as a thick drainage which appeared purulent. There was fluctuance over the buttock. The hip was prepped and draped with alcohol and Hibiclens. The previous incision was opened in its entirety. The drainage was cultured. Necrotic tissue was debrided. The gluteus pineda muscle was primarily necrotic. Debridement was carried out to bleeding tissue. Clotted material was removed from the acetabulum. A femoral canal was curetted and thoroughly irrigated. The entire wound was thoroughly irrigated with pulse lavage. The hip area did communicate with the ischial decubitus. There were several small subcutaneous abscesses. These were all debrided. Blunt dissection was carried out freeing any pockets. The wound was again thoroughly irrigated. The decubitus was sharply debrided of all eschar and necrotic tissue deep to it. The anterior half was closed primarily with nylon and the distal half a VAC dressing was applied on an area of approximate 5 cm. The hip incision was closed utilizing #1 Vicryl on the muscular fascia, 0 Vicryl suture in the deep tissue and 3-0 nylon on the skin leaving the proximal 4 cm open for VAC application. Sterile dressings were applied. Upon completion of the procedure vascular access was to be performed by anesthesia. The patient remains mildly hypotensive during the procedure and will be monitored closely by anesthesia postoperatively and in the ISC initially. Estimated blood loss: 100 cc Complications: None Luke Campuzano MD Aug 19, 2016 19:09
[2016-08-19] MEDS ORDERED: PHENYLEPHRINE HCL 10 MG/ML VIAL ONE (19:15)
[2016-08-19] MEDS ORDERED: PHENYLEPHRINE 40 MG/D5W 496 ML ADMIX IV SCH ×2 (19:15)
[2016-08-19] MEDS ORDERED: SODIUM CHLORIDE 0.9% FLUSH 5 ML FLUSH IVF PRN (19:15)
[2016-08-19] MEDS ORDERED: TERBUTALINE INJ 1 MG/ML AMP SQ PRN (19:15)
[2016-08-19] MEDS ORDERED: PROPOFOL 1000 MG/100 ML IV SCH (19:15)
[2016-08-19] MEDS ORDERED: diphenhydrAMINE HCL 25 MG CAP PO PRN (19:15)
[2016-08-19 19:43] LABS: BLOOD GAS BASE EXCESS -1.9 mmol/L (-2-2); BLOOD GAS CARBOXYHEMOGLOBIN 1.9 % (0-4); BLOOD GAS HCO3 22 mmol/L (22-26); BLOOD GAS METHEMOGLOBIN 0.8 % (0-2); BLOOD GAS O2 HGB SATURATION 97 % (90-100); BLOOD GAS OXYGEN CONTENT 11.6 Vol % (12.0-20.0); BLOOD GAS PCO2 33 mmHg (38-42); BLOOD GAS PO2 216 mmHg (61-120); BLOOD GAS TOTAL HGB 8.1 G/DL (12.0-16.0); CRITICAL VALUE NO; OXYGEN DEVICE VENTILATOR; TEMP CORR TO 98.6
[2016-08-19 19:44] LABS: DRAW SITE ART LINE; FIO2 60 %; STAT YES; VENT SETTINGS PER ANESTHESIA
[2016-08-19] MEDS ORDERED: DO NOT ADM ANY ANTICOAGULANT DRUGS XX PRN ×2 (20:15)
--- NOTE | 2016-08-19 20:19 | RADRPT ---
EXAM DATE/TIME: 08/19/2016 19:33 [facility] COMPARISON: No previous studies available for comparison. INDICATIONS : Evaluate line placement MEDICAL HISTORY : Unobtainable SURGICAL HISTORY : CABG. ENCOUNTER: Subsequent ACUITY: 2 days PAIN SCORE: Non-responsive. LOCATION: chest FINDINGS: Bibasilar consolidation and small effusions persists, not significantly changed. No pneumothorax seen . Heart size stable, upper limits of normal. Patient has had previous median sternotomy. Patient is now intubated. Endotracheal tube tip is 4.5 cm above the randi. There is a left subclavia n central venous catheter with tip in the superior vena cava. CONCLUSION: 1. Endotracheal tube and left subclavian central venous catheter positioned as above. 2. Mild bibasilar consolidation and small effusions not significantly changed. Thor Donahue MD on August 19, 2016 at 20:16 Board Certified Radiologist. This report was verified electronically.
[2016-08-19] MEDS: ENOXAPARIN SODIUM 40 MG/0.4 ML SYRINGE SQ SCH (21:00)
[2016-08-19] MEDS ORDERED: VANCOMYCIN INJ 750 MG in SODIUM CHLOR 0.9% 250 ML INJ 250 ML IV SCH (22:00)
[2016-08-19] MEDS: SODIUM CHLORIDE 0.9% FLUSH 5 ML FLUSH IVF SCH (22:13)
[2016-08-19] MEDS: TAMSULOSIN HCL 0.4 MG CAP PO SCH (22:13)
--- NOTE | 2016-08-19 22:22 | PD.CONS ---
HPI Service Critical Care Medicine Consult Requested By JAQCUELINE Reason for Consult Severe sepsis, Respiratory Failure Primary Care Physician Kimberly Branch MD History of Present Illness Due to decubitus ulceration, this 76 y/o man had developed left prosthetic hip MRSA infection requiring removal of hardware and Girdlestone procedure. Decubiti have continued due to severe cachexia and deconditioning, and the left hip pocket is infected again. He has severe sepsis manifested by tachycardia, hypothermia, leukocytosis. I have met him in the [facility] immediately following surgery and he has respiratory failure associated with his sepsis; requiring mechanical ventilation. Additional immediate problems include diabetes and dementia. Review of Systems ROS Unobtainable. No family. Past Family Social History Allergies: Coded Allergies: Anguillan Cheese (Verified Allergy, Unknown, 08/18/16) *MDRO Multi-Drug Resistant Organism (Verified Adverse Reaction, Unknown, MRSA, 08/18/16) MRSA (hip) - 07/12/16 Past Medical History Past Medical History Narrative Medical List of his past medical, surgical, social and family history is reviewed from the nursing note. Hx Anticoagulant Therapy: Yes Cardiac Catheterization: Yes Cardiovascular Problems: Yes (CAD) Cerebrovascular Accident: Yes (TIA) Dementia: Yes Diabetes: Yes Diminished Hearing: Yes Hypertension: Yes Immune Disorder: No Kidney Stones: No Musculoskeletal: Yes (LEFT HIP SURGERY) Neurologic: Yes Psychiatric: No Reproductive: No Respiratory: Yes (current every day smoker) Integumentary: Yes (FAILED OUTPATIENT WOUND CARE) Myocardial Infarction: No Past Surgical History Abdominal Surgery: No AICD: No Cardiac Surgery: Yes (cabg x 6 vessel 2003) Coronary Artery Bypass Graft: Yes Oral Surgery: Yes Pacemaker: No Thoracic Surgery: Yes Other Surgery: Yes (vascular left groin 2015 ) Social History Alcohol Use: No Tobacco Use: No Substance Use: No Allergies-Medications Allergies-Medications (Allergen,Severity, Reaction): Coded Allergies: Anguillan Cheese (Verified Allergy, Unknown, 08/18/16) *MDRO Multi-Drug Resistant Organism (Verified Adverse Reaction, Unknown, MRSA, 08/18/16) MRSA (hip) - 07/12/16 Comments List of his allergies reviewed from the nursing note. Reported Meds & Prescriptions Reported Meds & Active Scripts Active Levaquin (Levofloxacin) 750 Mg Tab 750 Mg PO DAILY 38 Days Vancomycin (Vancomycin HCl) 125 Mg Cap 125 Mg PO QID Ambien (Zolpidem Tartrate) 5 Mg Tab 5 Mg PO HS PRN Zinc Oxide (Zinc Oxide (Topical)) 20 % Oin 1 Applic TOPICAL DAILY Dakins Solution Half Strength Topical (Sodium Hypochlorite) 0.2-0.25 % Soln 500 Ml TOPICAL DAILY Povidone-Iodine Topical (Povidone Iodine) 10% Oint 1 Applic TOPICAL DAILY Potassium Chloride Microencaps 20 Meq Tab 20 Meq PO DAILY Metoprolol Tartrate 25 Mg Tab 25 Mg PO Q12HR Magnesium Oxide 241.3 Mg Tab 400 Mg G-TUBE Q12HR Famotidine 20 Mg Tab 20 Mg PO Q12HR Dronabinol 5 Mg Cap 5 Mg PO BID@11,16 Cardizem CD 24 HR (Diltiazem CD 24 HR) 120 Mg Caper 120 Mg PO DAILY Santyl (Collagenase) 250 Unit/Gm Oin 1 Applic TOP DAILY Oyster Shell Calcium/Vitamin D (Calcium Carbonate-Cholecalciferol) 250-125 Mg- Unit Tab 250 Mg PO DAILY Hydrocodone-Acetaminophen 5-325 mg Tab 1 Tab PO Q4H PRN Novolog Inj (Insulin Aspart) 1,000 Unit/10 Ml Vial 1-9 Units SQ ACHS Max dose at bedtime:( )units; sugars less than 70,(0)units; sugars 150-199,(1) unit; sugars 200-249,(3) units; sugars 250-299,(5) units; sugars 300-349,(7) units; sugars greater than 349,(9) units Nystatin Liq 100,000 unit/ml Susp 5 Ml SWISH-SWAL QID Reported Flomax (Tamsulosin HCl) 0.4 Mg Cap 0.4 Mg PO HS Clopidogrel (Clopidogrel Bisulfate) 75 Mg Tab 75 Mg PO DAILY Atorvastatin (Atorvastatin Calcium) 20 Mg Tab 20 Mg PO DAILY Physical Exam Vital Signs Vital Signs Date Time Temp Pulse Resp B/P Pulse Ox O2 Delivery O2 Flow Rate FiO2 08/19/16 21:30 99 50 08/19/16 21:00 96.8 79 10 106/66 99 Mechanical Ventilator 50 110/47 08/19/16 21:00 96.8 08/19/16 20:30 96.3 08/19/16 20:30 96.3 109 10 149/69 99 Mechanical Ventilator 50 131/53 08/19/16 20:30 50 08/19/16 20:15 85 10 145/72 99 Mechanical Ventilator 50 138/59 08/19/16 20:00 80 11 130/69 100 Mechanical Ventilator 50 136/55 08/19/16 19:45 80 13 125/69 99 Mechanical Ventilator 50 134/55 08/19/16 19:30 99 50 08/19/16 19:30 77 10 141/68 100 Mechanical Ventilator 50 129/50 08/19/16 19:29 50 08/19/16 19:29 97.6 75 10 147/73 100 Mechanical Ventilator 50 08/19/16 16:00 97.1 95 18 137/64 94 08/19/16 12:00 Nasal Cannula 4.00 08/19/16 10:43 71 20 128/68 98 Nasal Cannula 4 08/19/16 10:03 78 123/59 94 Nasal Cannula 4 08/19/16 09:15 90 18 152/67 94 Nasal Cannula 4 08/19/16 06:34 76 18 145/67 94 Nasal Cannula 4 Physical Exam PE: Head: Atraumatic, normal. Neck: Chronically stiff, orally intubated. Lungs: Clear, few mobile secretions. Good carrie air movement. Heart: NL S1S2, RRR, no JVD. Abdomen: Upper midline chronic clean [address] wound. PEG in place. Nondistended. Extremities: Hemovac drain left hip. Feet tepid. Neuro: Sedated, intubated. Cough intact. Laboratory Laboratory Tests Test 08/18/16 08/19/16 08/19/16 22:35 08:20 19:08 Blood Type AB POSITIVE Antibody Screen NEGATIVE White Blood Count 16.1 Red Blood Count 3.04 Hemoglobin 8.8 Hematocrit 27.3 Mean Corpuscular Volume 89.9 Mean Corpuscular Hemoglobin 29.0 Mean Corpuscular Hemoglobin 32.2 Concent Red Cell Distribution Width 17.6 Platelet Count 354 Mean Platelet Volume 8.7 Neutrophils (%) (Auto) 86.3 Lymphocytes (%) (Auto) 7.5 Monocytes (%) (Auto) 5.7 Eosinophils (%) (Auto) 0.2 Basophils (%) (Auto) 0.3 Neutrophils # (Auto) 13.9 Lymphocytes # (Auto) 1.2 Monocytes # (Auto) 0.9 Eosinophils # (Auto) 0.0 Basophils # (Auto) 0.0 CBC Comment DIFF FINAL Differential Comment Sodium Level 144 Potassium Level 3.7 Chloride Level 108 Carbon Dioxide Level 26.9 Anion Gap 9 Blood Urea Nitrogen 8 Creatinine 0.74 Estimat Glomerular Filtration 103 Rate Random Glucose 100 Calcium Level 7.5 Blood Gas Puncture Site ART LINE Blood Gas Patient Temperature 98.6 Blood Gas HCO3 22 Blood Gas Base Excess -1.9 Blood Gas Oxygen Saturation 97 Arterial Blood pH 7.44 Arterial Blood Partial 33 Pressure CO2 Arterial Blood Partial 216 Pressure O2 Arterial Blood Oxygen Content 11.6 Arterial Blood 1.9 Carboxyhemoglobin Arterial Blood Methemoglobin 0.8 Blood Gas Hemoglobin 8.1 Oxygen Delivery Device VENTILATOR Blood Gas Ventilator Setting PER ANESTHESIA Blood Gas Inspired Oxygen 60 Date/Time Procedure Status Source Growth 08/19/16 18:31 Gram Stain Received Wound Hip Pending 08/19/16 18:31 Wound Culture Received Wound Hip Pending 08/19/16 18:31 Fungal Smear Received Wound Hip Pending 08/19/16 18:31 Fungal Culture Received Wound Hip Pending 08/19/16 18:31 Acid Fast Stain Received Wound Hip Pending 08/19/16 18:31 Mycobacterial Culture Received Wound Hip Pending 08/18/16 18:35 Urine Culture - Preliminary Resulted Urine Catheterized Urine NO GROWTH IN 24 HOURS. 08/18/16 18:28 Aerobic Blood Culture - Preliminary Resulted Blood Peripheral NO GROWTH IN 1 DAY 08/18/16 18:28 Anaerobic Blood Culture - Preliminary Resulted Blood Peripheral NO GROWTH IN 1 DAY 08/18/16 17:55 Gram Stain - Final Resulted Wound Hip 08/18/16 17:55 Wound Culture - Preliminary Resulted S. Aureus Mrsa Nicolette Albicans Result Diagram: 08/19/16 0820 08/19/16 0820 Assessment and Plan Problem List: (1) Sepsis ICD Code: A41.9 Status: Acute (2) Type 2 diabetes mellitus ICD Code: E11.9 Status: Chronic (3) Leukocytosis ICD Code: D72.829 Status: Acute (4) Left hip prosthetic joint infection ICD Code: T84.52XA Status: Acute (5) Chronic systolic CHF (congestive heart failure) ICD Code: I50.22 Status: Chronic Assessment and Plan Plan: 1. PRVC vent mode. 2. PEEP 5. 3. Sputum culture. 4. Broad antibiotic coverage until all cultures returned. 5. Pepcid. 6. Heparin DVT px. 7. PEG to gravity drainage, use for meds as well. 8. Nutritional assistance via PEG. 9. Prealbumin. Overall impression: This man is critically ill from severe sepsis and respiratory failure following drainage/debridement of infected left hip prosthesis. He is ventilator dependednt and requires ongoing resuscitation during the night tonight. Critical care 40 mins Problem Qualifiers (1) Type 2 diabetes mellitus: (2) Leukocytosis: Qualified Code: D72.829 - Leukocytosis, unspecified type Anton Grande MD Aug 19, 2016 22:22
[2016-08-19] MEDS ORDERED: MAGNESIUM SULFATE INJ 4 GM in SODIUM CHLORIDE 0.9% INJ 92 ML IV PRN (23:00)
[2016-08-19] MEDS ORDERED: POTASSIUM PHOSPHATE MONOBASIC 500 MG TAB PO/TUBE PRN (23:00)
[2016-08-19] MEDS ORDERED: POTASSIUM PHOSPHATE MONOBASIC 500 MG TAB PO PRN (23:00)
[2016-08-19] MEDS ORDERED: POTASSIUM PHOSPHATE INJ 30 MMOL in SODIUM CHLOR 0.9% 250 ML INJ 250 ML IV PRN (23:00)
[2016-08-19] MEDS ORDERED: SODIUM PHOSPHATE INJ 30 MMOL in SODIUM CHLOR 0.9% 250 ML INJ 240 ML IV PRN (23:00)
[2016-08-19] MEDS ORDERED: POTASSIUM CHLOR 40 MEQ PREMIX 100 ML IV PRN ×2 (23:00)
[2016-08-19] MEDS ORDERED: POTASSIUM CHLOR 20 MEQ PREMIX 100 ML IV PRN ×2 (23:00)
[2016-08-19] MEDS ORDERED: MAGNESIUM SULFATE INJ 2 GM in SODIUM CHLORIDE 0.9% INJ 96 ML IV PRN (23:00)
[2016-08-19] MEDS ORDERED: MAGNESIUM OXIDE 400 MG TAB PO PRN (23:00)
[2016-08-20] VITALS (17 sets, daily range): BP systolic 93–147; BP diastolic 43–76; PULSE 56–72; RESP 12–19; TEMP 97.5–98; O2SAT 97–100
[2016-08-20] MEDS: PIPERACIL-TAZO 4.5 GM PREMIX 100 ML IV SCH ×2 (02:37→08:15)
[2016-08-20 03:05] LABS: MEAN CELL VOLUME 89.7 FL (80.0-100.0); MEAN CORPUSCULAR HEMOGLOBIN 29.2 PG (27.0-34.0); MEAN CORPUSCULAR HGB CONC 32.5 % (32.0-36.0); PLATELET COUNT 275 TH/MM3 (150-450); RED BLOOD COUNT 2.31 MIL/MM3 (4.50-5.90); WHITE BLOOD COUNT 21.3 TH/MM3 (4.0-11.0)
[2016-08-20 03:07] LABS: REVIEW FLAG FINAL
[2016-08-20 03:13] LABS: HEMATOCRIT 20.7 % (39.0-51.0)
[2016-08-20 03:38] LABS: BLOOD GAS BASE EXCESS -3.6 mmol/L (-2-2); BLOOD GAS CARBOXYHEMOGLOBIN 1.3 % (0-4); BLOOD GAS HCO3 20 mmol/L (22-26); BLOOD GAS METHEMOGLOBIN 0.9 % (0-2); BLOOD GAS O2 HGB SATURATION 98 % (90-100); BLOOD GAS OXYGEN CONTENT 9.2 Vol % (12.0-20.0); BLOOD GAS PCO2 31 mmHg (38-42); BLOOD GAS PO2 216 mmHg (61-120); BLOOD GAS TOTAL HGB 6.3 G/DL (12.0-16.0); TEMP CORR TO 98.6
[2016-08-20 03:39] LABS: CRITICAL VALUE YES; OXYGEN DEVICE VENTILATOR
[2016-08-20 03:44] LABS: VENT SETTINGS PRVC/AC
[2016-08-20 03:44] LABS: BICARBONATE 23.6 MEQ/L (21.0-32.0); POTASSIUM 3.8 MEQ/L (3.5-5.1)
[2016-08-20 03:45] LABS: DRAW SITE ART LINE; FIO2 50 %; STAT NO
[2016-08-20 04:06] LABS: CALCIUM-PROTEIN CORRECTED 8.6 MG/DL (8.5-10.1)
[2016-08-20] MEDS: INSULIN ASPART SUPPLEMENTAL SCALE SQ SCH ×3 (07:00→17:50)
--- NOTE | 2016-08-20 07:38 | PD.ORT.PN ---
Subjective Post Op Day #: 1 Subjective Remarks This 76-year-old male with multiple medical problems is status post a bipolar hip arthroplasty for femoral neck fracture. The patient developed decubiti over his sacrum and hip regions and subsequently a deep infection of the hip which grew MRSA and Proteus. He also currently has C diff. He has several ulcerations of his extremity. It was elected at the initial irrigation debridement to perform a Girdlestone arthroplasty. The patient was discharged to assisted with antibiotic therapy and presented today after being sent by the assisted secondary to increasing drainage from the hip region. After further review of the wound it was recommended he undergo irrigation debridement with application of VAC therapy. Mr Newby is laying comfortably in bed, intubated and slightly arousable. He is monitored by critical care team. History not obtainable at this time. Objective Vitals Vital Signs Date Time Temp Pulse Resp B/P Pulse Ox O2 Delivery O2 Flow Rate FiO2 08/20/16 06:00 66 08/20/16 04:00 97.5 64 17 93/76 100 99/71 08/20/16 04:00 50 08/20/16 04:00 64 08/20/16 03:56 97 40 08/20/16 02:00 72 08/20/16 00:00 97.6 68 14 114/46 100 08/20/16 00:00 68 08/19/16 23:59 100 50 08/19/16 22:00 100 Mechanical Ventilator 50 08/19/16 22:00 50 08/19/16 22:00 60 08/19/16 21:30 99 50 08/19/16 21:23 100 100 08/19/16 21:00 96.8 79 10 106/66 99 Mechanical Ventilator 50 110/47 08/19/16 21:00 96.8 08/19/16 20:30 96.3 08/19/16 20:30 96.3 109 10 149/69 99 Mechanical Ventilator 50 131/53 08/19/16 20:30 50 08/19/16 20:15 85 10 145/72 99 Mechanical Ventilator 50 138/59 08/19/16 20:00 80 11 130/69 100 Mechanical Ventilator 50 136/55 08/19/16 19:45 80 13 125/69 99 Mechanical Ventilator 50 134/55 08/19/16 19:30 99 50 08/19/16 19:30 77 10 141/68 100 Mechanical Ventilator 50 129/50 08/19/16 19:29 50 08/19/16 19:29 97.6 75 10 147/73 100 Mechanical Ventilator 50 08/19/16 16:00 97.1 95 18 137/64 94 08/19/16 12:00 Nasal Cannula 4.00 08/19/16 10:43 71 20 128/68 98 Nasal Cannula 4 08/19/16 10:03 78 123/59 94 Nasal Cannula 4 08/19/16 09:15 90 18 152/67 94 Nasal Cannula 4 I/O 08/19/16 08/19/16 08/19/16 08/20/16 08/20/16 08/20/16 07:00 15:00 23:00 07:00 15:00 23:00 Intake Total 1900 ml Output Total 1800 ml 470 ml Balance -1800 ml 1430 ml Intake Oral 0 ml IV Total 900 ml Other 1000 ml Output Urine Total 1800 ml 150 ml Estimated Blood Loss 20 ml Other 300 ml # Bowel Movements 1 Result Diagram: 08/20/16 0245 08/20/16 0245 Imaging Last 24 hours Impressions Chest X-Ray 08/18/16 1752 Signed Impressions: Service Date/Time: Thursday, August 18, 2016 18:16 - CONCLUSION: 1. Bilateral lung densities greater on the left with bilateral pleural effusions. Jose A Small MD Procedures Irrigation and debridement left hip with application of wound VAC 08/19/16 Debridement left ischial decubitus with partial closure and application of wound VAC 08/19/16 Left hip resection of arthroplasty 08/03/16 Left hip bipolar arthroplasty 05/24/16 Objective Remarks LLE: Wound vac dressing is dry and intact, with good seal. Slight external rotation of extremity. Neuro exam unobtainable. Good cap refill distal. Multiple decubitus and diabetic ulcers dressed and intact distally. Assessment & Plan Ortho Post Op Day #: 1 Problem List: Assessment and Plan Ortho status stable POD #1, Irrigation and debridement left hip with application of wound VAC, Debridement left ischial decubitus with partial closure and application of wound VAC Wound vac to be changed starting Tuesday08/23/16, then to follow // schedule for dressing changes. Continue Lovenox for DVT prophylaxis and pain control. Initial G/S of wound is positive for Staph Jazlyn, MSRA and Kaela. Awaiting G/S and cultures of left hip from deep surgical wound Progress rehab as appropriate Monitored by critical care staff Discharge pending. Mary Ellen Pike Aug 20, 2016 07:37
[2016-08-20] MEDS ORDERED: PHARMACY ORDERED LAB XX ONE (07:45)
[2016-08-20] MEDS: NYSTATIN SUSP 500,000 U/5 ML CUP SWISH-SWAL SCH ×4 (07:48→21:11)
[2016-08-20] MEDS: METOPROLOL TARTRATE 25 MG TAB PO SCH ×2 (07:48→21:00)
[2016-08-20] MEDS: DILTIAZEM-CD 120 MG CAP ER PO SCH (07:49)
[2016-08-20] MEDS: POTASSIUM CHLORIDE 20 MEQ CONTROLLED RELEASE TAB PO SCH (07:49)
[2016-08-20] MEDS: SODIUM CHLORIDE 0.9% FLUSH 5 ML FLUSH IVF SCH ×2 (07:49→21:13)
[2016-08-20] MEDS: CHLORHEXIDINE 0.12% (ORAL KIT) 15 ML CUP MT SCH ×3 (07:50→20:09)
[2016-08-20] MEDS: MAGNESIUM OXIDE 400 MG TAB G-TUBE SCH ×2 (08:14→17:24)
[2016-08-20] MEDS: ZINC SULFATE 220 MG CAP G-TUBE SCH (08:14)
[2016-08-20] MEDS: MULTIVITAMINS/MINERALS THERAPEUTIC TAB GT SCH (08:15)
[2016-08-20] MEDS: FAMOTIDINE 20 MG TAB PO SCH ×2 (08:15→21:11)
[2016-08-20] MEDS: ASCORBIC ACID 500 MG TAB G-TUBE SCH ×2 (08:15→21:11)
[2016-08-20] MEDS: ATORVASTATIN 20 MG TAB PO SCH (08:15)
[2016-08-20] MEDS: VANCOMYCIN 500 MG VIAL (FOR ORAL USE ONLY) PO SCH ×4 (08:16→21:13)
[2016-08-20] MEDS ORDERED: fentaNYL DRIP 250 ML IV SCH (09:00)
[2016-08-20] MEDS ORDERED: DEXMEDETOMIDINE INJ 50 ML IV SCH (09:00)
--- NOTE | 2016-08-20 09:00 | HHI.CCPN ---
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 Decubiti have continued due to severe cachexia and deconditioning, and the left hip pocket is infected again. He has severe sepsis manifested by tachycardia, hypothermia, leukocytosis. I have met him in the [facility] immediately following surgery and he has respiratory failure associated with his sepsis; requiring mechanical ventilation. Additional immediate problems include diabetes and dementia. Subjective 08/20: Afebrile. Currently on CPAP trials 05/17 at 40%. Awake and looks there is a 2. Currently being transfuse blood due to anemia postoperatively. Will check this afternoon if extubated unable after blood transfusions. Positive BM yesterday. Objective Vital Signs Date Time Temp Pulse Resp B/P Pulse Ox O2 Delivery O2 Flow Rate FiO2 08/20/16 07:00 100 Mechanical Ventilator 40 08/20/16 06:00 66 08/20/16 04:00 97.5 17 93/76 99/71 08/19/16 12:00 4.00 Intake and Output 08/19/16 08/19/16 08/20/16 08:00 16:00 00:00 Intake Total 1900 ml Output Total 1000 ml 800 ml 470 ml Balance -1000 ml -800 ml 1430 ml Result Diagram: 08/20/16 0245 08/20/16 0245 Other Results Microbiology Date/Time Procedure Status Source Growth 08/19/16 18:31 Gram Stain Received Wound Hip Pending 08/19/16 18:31 Wound Culture Received Wound Hip Pending 08/19/16 18:31 Fungal Smear Received Wound Hip Pending 08/19/16 18:31 Fungal Culture Received Wound Hip Pending 08/19/16 18:31 Acid Fast Stain Received Wound Hip Pending 08/19/16 18:31 Mycobacterial Culture Received Wound Hip Pending 08/18/16 18:35 Urine Culture - Preliminary Resulted Urine Catheterized Urine NO GROWTH IN 24 HOURS. 08/18/16 18:28 Aerobic Blood Culture - Preliminary Resulted Blood Peripheral NO GROWTH IN 1 DAY 08/18/16 18:28 Anaerobic Blood Culture - Preliminary Resulted Blood Peripheral NO GROWTH IN 1 DAY 08/18/16 17:55 Gram Stain - Final Resulted Wound Hip 08/18/16 17:55 Wound Culture - Preliminary Resulted S. Aureus Mrsa Nicolette Albicans Imaging Last Impressions Chest X-Ray 08/19/16 0000 Signed Impressions: Service Date/Time: August 19:33 - CONCLUSION: 1. Endotracheal tube and left subclavian central venous catheter positioned as above. 2. Mild bibasilar consolidation and small effusions not significantly changed. Thor Donahue MD Objective Remarks GENERAL: 76-year-old male, critically ill currently resting in bed SKIN: Bilateral heel ulcers, stage III sacral decubitus ulcer, left hips currently covered. Once a wound over mid sternum noted. PEG tube is clean dry and intact. HEAD: Atraumatic. Normocephalic. EYES: Pupils equal and round about 4 mm bilaterally and reactive. No scleral icterus. No injection or drainage. ENT: No nasal bleeding or discharge. Mucous membranes pink and moist. NECK: Trachea midline. No JVD. CARDIOVASCULAR: Regular rate and rhythm. S1, S2. No S4. RESPIRATORY: Admission the bases but essentially clear to oscillation bilaterally without wheezes. GASTROINTESTINAL: Abdomen soft, non-tender, nondistended. PEG tube site is clean dry and intact.. MUSCULOSKELETAL: Extremities as above per scan. Noted skin breakdown sacrum/ heel/left hip NEUROLOGICAL: Awake and alert. No obvious cranial nerve deficits. Moving all 4 extremities spontaneously. Urinary Catheter: Yes Assessment to: Continue Arrieta insert reason: Prolonged Immobilization Vascular Central Line Catheter: Yes Assessment to: Continue Date of Insertion: Aug 19, 2016 Line: Central Venous Catheter Side: Left Location: Subclavian A/P Problem List: (1) Sepsis ICD Code: A41.9 Status: Acute (2) Type 2 diabetes mellitus ICD Code: E11.9 Status: Chronic (3) Leukocytosis ICD Code: D72.829 Status: Acute (4) Left hip prosthetic joint infection ICD Code: T84.52XA Status: Acute (5) Chronic systolic CHF (congestive heart failure) ICD Code: I50.22 Status: Chronic Assessment and Plan Neuro/Psych: Dementia disorder NOS Insomnia Patient is currently on fentanyl drip as needed for analgesia while intubated Propofol held secondary to borderline blood pressures Goal of RASS of -2-0 Daily sedation vacation Currently holding Ambien 5 mEq at night for insomnia. Continue Marinol 5 mg twice a day for anorexia Acetaminophen for fever CV: Coronary artery disease status post CABG 6 Peripheral vascular disease -history of left femoropopliteal with angioplasty/ stenting Hypertension Dyslipidemia Patient is currently on normal saline at 84 cc an hour. Normotensive. Currently in Cardizem at 30 mg 4 times a day and Lopressor 25 mg twice a day for hypertension. Continue Continue Plavix 75 mg by mouth daily for peripheral vascular disease. Continue atorvastatin 20 mg by mouth daily for dyslipidemia Resp: Postoperative respiratory failure PRVC ventilation 12/450/0.8/5/40 Currently on CPAP trials. Ventilator bundle. As needed bronchodilator therapy. Spontaneous beating trials as clinically indicated GI: gAstro Esophageal reflux disease Status post PEG tube Severe protein calorie malnutrition Resume tube feeding with Glucerna 1.5 goal 50 cc an hour Pepcid for GI prophylaxis Colace/as needed Senokot for bowel regimen : BPH UTI Arrieta has been placed for accurate I's and O's in critically ill patient Flomax 0.4 milliequivalents by mouth daily has been resumed Endo: Sliding scale insulin Accu-Cheks to maintain euglycemia. Low regimen Renal: Creatinine currently within normal limits. Monitor urine output closely. Accurate I's and O's Heme: Leukocytosis ABL anemia Currently being transfused 2 units PRBCs. Follow-up pending Continue Plavix 75 mill grams daily with history of professor disease ID: History of MRSA History C. difficile Recent history of Proteus hardware infection on Levaquin 6 weeks Currently Levaquin 750 mg by mouth daily per ID to complete 6 weeks therapy Currently on vancomycin 125 mg 4 times a day for C. difficile. T new until 2 weeks after Levaquin has been discontinued Continue IV vancomycin 750 IV every 24 for MRSA Zosyn added yesterday by my partner for broad coverage. Pertinent cultures 08/19 - hip -pending 08/18 - wound - MRSA/C. albicans 08/18 - blood cultures 2 - no growth 08/18 - urine - no growth ID consultation for antibiotic management FEN: Replace electrolytes as clinically indicated MSK: Postop day #1 Irrigation and debridement left hip with application of wound VAC /Debridement left ischial decubitus with partial closure and application of wound VAC Dr. Campuzano Stage III sacral decubitus ulcer Stage 2-3 bilateral heel ulcers Seen by Dr. Baptiste 07/30. Recommended Povidine/iodine and zinc oxide cover with Mepilex daily for debridement./iodine Orthophoric postop care. Continue padding for heel ulcers Access - Left subclavian CVL day #2 placed in OR on 08/19 Prophylaxis - GI -Pepcid - DVT - SCD/Lovenox Critical Care: The total critical care time was 35 minutes. Time to perform other separately billable procedures was not included in the critical care time. Problem Qualifiers (1) Type 2 diabetes mellitus: (2) Leukocytosis: Qualified Code: D72.829 - Leukocytosis, unspecified type Andrea Saavedra MD Aug 20, 2016 09:00
[2016-08-20 09:14] LABS: HEMATOCRIT 30.5 % (39.0-51.0); REVIEW FLAG FINAL
[2016-08-20 09:43] LABS: MAGNESIUM 1.7 MG/DL (1.5-2.5); VANCOMYCIN TROUGH 27.9 MCG/ML (5.0-10.0)
[2016-08-20] MEDS ORDERED: LEVOFLOXACIN 750 MG TAB PO SCH (10:00)
[2016-08-20] MEDS: DILTIAZEM HCL 30 MG TAB PO SCH ×4 (10:00→21:00)
[2016-08-20] MEDS ORDERED: POVIDONE IODINE 10% SOLN 118 ML BOTTLE TOPICAL PRN (10:15)
[2016-08-20] MEDS: DRONABINOL 5 MG CAP PO SCH ×2 (10:49→15:47)
[2016-08-20] MEDS: COLLAGENASE OINT 30 GM TUBE TOP PRN (10:51)
[2016-08-20] MEDS: MUPIROCIN 2% OINT 1 APPLIC/GM SYR EACH NARE SCH ×2 (12:22→21:11)
[2016-08-20] MEDS ORDERED: LACTATED RINGER'S 1000 ML INJ 1,000 ML IV ONE (12:45)
[2016-08-20] MEDS ORDERED: ALBUMIN HUMAN 25% 25 GM/100 ML BAGP IV ONE (12:45)
[2016-08-20] MEDS ORDERED: FLUCONAZOLE 400 MG PREMIX BAG 400 ML IV SCH (13:00)
[2016-08-20] MEDS: FLUCONAZOLE 400 MG PREMIX BAG 400 ML IV SCH ×2 (13:40)
[2016-08-20] MEDS ORDERED: SODIUM CHLORIDE 0.9% IV SCH (14:00)
[2016-08-20] MEDS ORDERED: DAPTOMYCIN IV SCH (14:00)
[2016-08-20] MEDS: SODIUM CHLORIDE 0.9% IV SCH (15:47)
[2016-08-20] MEDS: DAPTOMYCIN IV SCH (15:47)
[2016-08-20] MEDS ORDERED: SODIUM CHLOR 0.9% 1000 ML INJ 1,000 ML IV ONE (17:00)
[2016-08-20] MEDS: SODIUM CHLOR 0.9% 1000 ML INJ 1,000 ML IV SCH (17:50)
[2016-08-20 18:04] LABS: HEMATOCRIT 25.6 % (39.0-51.0); MEAN CELL VOLUME 84.1 FL (80.0-100.0); MEAN CORPUSCULAR HEMOGLOBIN 27.8 PG (27.0-34.0); MEAN CORPUSCULAR HGB CONC 33.1 % (32.0-36.0); PLATELET COUNT 218 TH/MM3 (150-450); RED BLOOD COUNT 3.05 MIL/MM3 (4.50-5.90); RED CELL DISTRIBUTION WIDTH 19.3 % (11.6-17.2); REVIEW FLAG FINAL; WHITE BLOOD COUNT 14.6 TH/MM3 (4.0-11.0)
[2016-08-20 18:44] LABS: BICARBONATE 26.9 MEQ/L (21.0-32.0); POTASSIUM 3.4 MEQ/L (3.5-5.1)
[2016-08-20 18:56] LABS: CALCIUM-PROTEIN CORRECTED 8.4 MG/DL (8.5-10.1)
[2016-08-20] MEDS: TAMSULOSIN HCL 0.4 MG CAP PO SCH (21:00)
[2016-08-20] MEDS: DOCUSATE SODIUM 100 MG CAP PO SCH (21:11)
[2016-08-20] MEDS: ENOXAPARIN SODIUM 40 MG/0.4 ML SYRINGE SQ SCH (21:14)
--- NOTE | 2016-08-20 23:59 | RADRPT ---
EXAM DATE/TIME: 08/20/2016 22:51 [facility] COMPARISON: CT ABDOMEN & PELVIS W CONTRAST, May 18, 2016, 1:55. US KIDNEY/RENAL/BLADDER, May 08, 2016, 19:53. INDICATIONS : Increased lab values. MEDICAL HISTORY : Myocardial infarction. Hypertension. Hearing loss. Transient ischemic attack. Dementia. Anticoagula nt therapy. Diabetes. Measles. SURGICAL HISTORY : CABG. Cardiac catheterization. Left hip surgery. Vascular left groin surgery. ENCOUNTER: Subsequent ACUITY: 1 day PAIN SCORE: Nonresponsive. LOCATION: Bilateral legs. MEASUREMENTS: RIGHT KIDNEY: 11.4 x 5.3 x 5.2 cm LEFT KIDNEY: 10.1 x 5.3 x 5.8 cm FINDINGS: Incidentally observed are bilateral pleural effusions, gallbladder wall thickening, an echogenic focu s in the gallbladder suggesting a stone. RIGHT KIDNEY: Renal cortex is normal in thickness and echotexture. No hydronephrosis, stone, or mass. LEFT KIDNEY: Renal cortex is normal in thickness and echotexture. No hydronephrosis, stone, or mass. BLADDER: Nondistended. Arrieta catheter. CONCLUSION: 1. Symmetric renal size. No evidence of hydronephrosis. 2. Bilateral pleural effusions and abnormal appearance to the gallbladder with wall thickening and pr obable stone. Roberto Hanley MD on August 20, 2016 at 23:53 Board Certified Radiologist. This report was verified electronically.
[2016-08-21] VITALS (19 sets, daily range): BP systolic 122–146; BP diastolic 42–64; PULSE 53–95; RESP 10–22; TEMP 97.7–98.1; O2SAT 99–100
[2016-08-21] MEDS: SODIUM CHLOR 0.9% 1000 ML INJ 1,000 ML IV SCH ×3 (02:54→17:46)
[2016-08-21 03:03] LABS: AUTOMATED NEUTROPHIL # 11.9 TH/MM3 (1.8-7.7); BASOPHIL % 0.1 % (0.0-2.0); HEMATOCRIT 26.2 % (39.0-51.0); HEMO FLAGS DIFF FINAL; LYMPH % 7.3 % (9.0-44.0); MEAN CELL VOLUME 83.7 FL (80.0-100.0); MEAN CORPUSCULAR HEMOGLOBIN 28.4 PG (27.0-34.0); MONO % 7.1 % (0.0-8.0); NEUT % 85.5 % (16.0-70.0); PLATELET COUNT 221 TH/MM3 (150-450); RED BLOOD COUNT 3.14 MIL/MM3 (4.50-5.90); RED CELL DISTRIBUTION WIDTH 19.5 % (11.6-17.2); WHITE BLOOD COUNT 13.9 TH/MM3 (4.0-11.0)
[2016-08-21 04:09] LABS: CALCIUM-PROTEIN CORRECTED 8.6 MG/DL (8.5-10.1); MAGNESIUM 1.5 MG/DL (1.5-2.5); POTASSIUM 3.5 MEQ/L (3.5-5.1); TOTAL BILIRUBIN ADULT 0.4 MG/DL (0.2-1.0)
--- NOTE | 2016-08-21 05:53 | RADRPT ---
EXAM DATE/TIME: 08/21/2016 04:07 [facility] COMPARISON: CHEST SINGLE AP, August 19, 2016, 19:33. INDICATIONS : Respiratory failure. MEDICAL HISTORY : Hypertension. Diabetes mellitus type II. Myocardial infarction. Smoker. CAD. SURGICAL HISTORY : CABG. ENCOUNTER: Subsequent ACUITY: 1 week PAIN SCORE: Non-responsive. LOCATION: Bilateral chest FINDINGS: Patient is rotated towards the left. ET tube well above the randi. Left subclavian catheter projec ts over the mid superior vena cava. There is persistent dense consolidation left mid and lower lung with complete loss of delineation of the left hemidiaphragm, progressed from prior exam. There is di ffuse hazy opacity in the right mid and lower lung with loss of rotation of the right hemidiaphragm, a new finding from prior exam. CONCLUSION: Increasing consolidation in the left lower lung and new opacities in the right lower lung suggesting infiltrate, effusion, or a combination of both. Roberto Hanley MD on August 21, 2016 at 5:50 Board Certified Radiologist. This report was verified electronically.
[2016-08-21] MEDS: INSULIN ASPART SUPPLEMENTAL SCALE SQ SCH ×4 (06:00→18:00)
[2016-08-21] MEDS: MAGNESIUM OXIDE 400 MG TAB G-TUBE SCH ×2 (06:20→17:57)
[2016-08-21] MEDS: ZINC SULFATE 220 MG CAP G-TUBE SCH (06:20)
[2016-08-21] MEDS: CHLORHEXIDINE 0.12% (ORAL KIT) 15 ML CUP MT SCH ×4 (07:24→19:29)
[2016-08-21] MEDS: DILTIAZEM HCL 30 MG TAB PO SCH ×5 (07:45→20:29)
--- NOTE | 2016-08-21 08:09 | PD.ORT.PN ---
Subjective Subjective Remarks Patient intubated. New erosion of sternal wire that was recognized that night. Objective Vitals Vital Signs Date Time Temp Pulse Resp B/P Pulse Ox O2 Delivery O2 Flow Rate FiO2 08/21/16 07:48 100 35 08/21/16 07:00 100 Mechanical Ventilator 35 08/21/16 06:00 64 08/21/16 05:06 100 35 08/21/16 04:00 60 08/21/16 04:00 35 08/21/16 04:00 98.0 60 12 127/44 100 08/21/16 02:00 53 08/21/16 00:40 100 35 08/21/16 00:00 98.0 60 10 122/42 100 08/21/16 00:00 60 08/21/16 00:00 35 08/20/16 22:15 100 35 08/20/16 22:00 35 08/20/16 22:00 61 08/20/16 20:00 40 08/20/16 20:00 57 08/20/16 20:00 98.0 57 12 130/48 100 08/20/16 19:00 100 Mechanical Ventilator 40 08/20/16 18:00 58 08/20/16 17:21 100 40 08/20/16 16:00 72 08/20/16 16:00 97.7 72 12 127/46 100 08/20/16 16:00 40 08/20/16 14:20 100 40 08/20/16 14:00 56 08/20/16 12:00 98.0 58 12 147/52 100 08/20/16 12:00 40 08/20/16 12:00 58 08/20/16 10:33 40 08/20/16 10:00 63 08/20/16 08:15 100 40 I/O 08/20/16 08/20/16 08/20/16 08/21/16 08/21/16 08/21/16 07:00 15:00 23:00 07:00 15:00 23:00 Intake Total 1040 ml 3122 ml 1064 ml Output Total 200 ml 175 ml 200 ml Balance 840 ml 2947 ml 864 ml IV Total 540 ml 3122 ml 1064 ml Packed Cells 500 ml Output Urine Total 125 ml 125 ml 150 ml Gastric Drainage Total 25 ml 0 ml 0 ml Tube Feeding Residual Discard 0 ml Drainage Total 50 ml 50 ml 50 ml # Bowel Movements 0 0 Result Diagram: 08/21/16 0235 08/21/16 0235 Imaging Last 24 hours Impressions Chest X-Ray 08/18/16 6232 Signed Impressions: Service Date/Time: Thursday, August 18, 2016 18:16 - CONCLUSION: 1. Bilateral lung densities greater on the left with bilateral pleural effusions. Jose A Small MD Procedures Irrigation and debridement left hip with application of wound VAC 08/19/16 Debridement left ischial decubitus with partial closure and application of wound VAC 08/19/16 Left hip resection of arthroplasty 08/03/16 Left hip bipolar arthroplasty 05/24/16 Objective Remarks Laying in bed, intubated LLE: Wound vac dressing is dry and intact, with good seal. Slight external rotation of extremity. Neuro exam unobtainable. Good cap refill distal. Multiple decubitus and diabetic ulcers dressed and intact distally. Exposed stainless steel wire, lower sternum, covered w xeroform and sterile dressing Pt seen and evaluated by Dr. Luca Rowe Assessment & Plan Assessment and Plan Ortho status stable POD #2, Irrigation and debridement left hip with application of wound VAC, Debridement left ischial decubitus with partial closure and application of wound VAC Wound vac to be changed starting Tuesday08/23/16, then to follow // schedule for dressing changes. Continue Lovenox for DVT prophylaxis and pain control. Initial G/S of wound is positive for Staph Jazlyn, MSRA and Kaela. Awaiting G/S and cultures of left hip from deep surgical wound Progress rehab as appropriate Monitored by critical care staff. Continue cardiopulm support. Continue nutritional support. Discharge pending. Deidre Villarreal Aug 21, 2016 08:09
[2016-08-21] MEDS: POTASSIUM CHLORIDE 20 MEQ CONTROLLED RELEASE TAB PO SCH (08:44)
[2016-08-21] MEDS: METOPROLOL TARTRATE 25 MG TAB PO SCH ×2 (08:45→20:29)
[2016-08-21] MEDS: NYSTATIN SUSP 500,000 U/5 ML CUP SWISH-SWAL SCH ×4 (08:54→20:29)
[2016-08-21] MEDS: MUPIROCIN 2% OINT 1 APPLIC/GM SYR EACH NARE SCH ×2 (08:54→20:29)
[2016-08-21] MEDS: CLOPIDOGREL 75 MG TAB PO SCH (08:54)
[2016-08-21] MEDS: VANCOMYCIN 500 MG VIAL (FOR ORAL USE ONLY) PO SCH ×4 (08:54→20:30)
[2016-08-21] MEDS: FAMOTIDINE 20 MG TAB PO SCH ×2 (08:55→20:29)
[2016-08-21] MEDS: MULTIVITAMINS/MINERALS THERAPEUTIC TAB GT SCH (08:55)
[2016-08-21] MEDS: DOCUSATE SODIUM 100 MG CAP PO SCH ×2 (08:55→20:30)
[2016-08-21] MEDS: SODIUM CHLORIDE 0.9% FLUSH 5 ML FLUSH IVF SCH ×2 (08:56→20:29)
[2016-08-21] MEDS: ASCORBIC ACID 500 MG TAB G-TUBE SCH ×2 (08:56→20:29)
[2016-08-21] MEDS: FLUCONAZOLE 400 MG PREMIX BAG 400 ML IV SCH ×2 (11:55→14:47)
[2016-08-21] MEDS: DRONABINOL 5 MG CAP PO SCH ×2 (11:55→15:38)
--- NOTE | 2016-08-21 12:38 | HHI.CCPN ---
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 Decubiti have continued due to severe cachexia and deconditioning, and the left hip pocket is infected again. He has severe sepsis manifested by tachycardia, hypothermia, leukocytosis. I have met him in the [facility] immediately following surgery and he has respiratory failure associated with his sepsis; requiring mechanical ventilation. Additional immediate problems include diabetes and dementia. 08/20: Afebrile. Currently on CPAP trials 05/17 at 40%. Awake and following commands Currently being transfuse blood due to anemia postoperatively. Will check this afternoon if extubated unable after blood transfusions. Positive BM yesterday. Subjective 08/21: Afebrile. Tolerated CPAP trials overnight. Awake and follows simple commands on ventilator. No bowel movement. He was medically stable. Decreased urine output noted. CVP around 10. Objective Vital Signs Date Time Temp Pulse Resp B/P Pulse Ox O2 Delivery O2 Flow Rate FiO2 08/21/16 08:03 63 08/21/16 08:00 98.1 18 127/47 100 08/21/16 08:00 35 08/21/16 07:00 Mechanical Ventilator 08/19/16 12:00 4.00 Intake and Output 08/20/16 08/20/16 08/21/16 08:00 16:00 00:00 Intake Total 1040 ml 3122 ml Output Total 200 ml 175.0 ml Balance 840 ml 2947.0 ml Result Diagram: 08/21/16 0235 08/21/16 0235 Other Results Microbiology Date/Time Procedure Status Source Growth 08/19/16 18:31 Gram Stain - Final Resulted Wound Hip 08/19/16 18:31 Wound Culture - Preliminary Resulted Nicolette Albicans 08/19/16 18:31 Fungal Smear - Final Resulted Wound Hip NO FUNGAL ELEMENTS SEEN. 08/19/16 18:31 Fungal Culture Resulted Wound Hip Pending 08/19/16 18:31 Acid Fast Stain - Final Resulted Wound Hip NO ACID FAST BACILLI SEEN 08/19/16 18:31 Mycobacterial Culture Resulted Wound Hip Pending 08/18/16 18:35 Urine Culture - Final Complete Urine Catheterized Urine NO GROWTH IN 48 HOURS. 08/18/16 18:28 Aerobic Blood Culture - Preliminary Resulted Blood Peripheral NO GROWTH IN 3 DAYS 08/18/16 18:28 Anaerobic Blood Culture - Preliminary Resulted Blood Peripheral NO GROWTH IN 3 DAYS Imaging Last Impressions Renal Ultrasound 08/20/16 0000 Signed Impressions: Service Date/Time: Saturday, August 20, 2016 22:51 - CONCLUSION: 1. Symmetric renal size. No evidence of hydronephrosis. 2. Bilateral pleural effusions and abnormal appearance to the gallbladder with wall thickening and probable stone. Roberto Hanley MD Chest X-Ray 08/19/16 0000 Signed Impressions: Service Date/Time: August 19:33 - CONCLUSION: 1. Endotracheal tube and left subclavian central venous catheter positioned as above. 2. Mild bibasilar consolidation and small effusions not significantly changed. Thor Donahue MD Objective Remarks GENERAL: 76-year-old male, critically ill currently resting in bed orotracheally intubated SKIN: Bilateral heel ulcers, stage III sacral decubitus ulcer, left hips currently covered. Once a wound over mid sternum noted. PEG tube is clean dry and intact. HEAD: Atraumatic. Normocephalic. EYES: Pupils equal and round about 4 mm bilaterally and reactive. No scleral icterus. No injection or drainage. ENT: No nasal bleeding or discharge. Mucous membranes pink and moist. NECK: Trachea midline. No JVD. CARDIOVASCULAR: Regular rate and rhythm. S1, S2. No S4. RESPIRATORY: Admission the bases but essentially clear to oscillation bilaterally without wheezes. GASTROINTESTINAL: Abdomen soft, non-tender, nondistended. PEG tube site is clean dry and intact.. MUSCULOSKELETAL: Extremities as above per scan. Noted skin breakdown sacrum/ heel/left hip NEUROLOGICAL: Awake and alert. No obvious cranial nerve deficits. Moving all 4 extremities spontaneously. Vascular Central Line Catheter: Yes Assessment to: Continue Date of Insertion: Aug 19, 2016 Line: Central Venous Catheter Side: Left Location: Subclavian A/P Problem List: (1) Sepsis ICD Code: A41.9 Status: Acute (2) Type 2 diabetes mellitus ICD Code: E11.9 Status: Chronic (3) Leukocytosis ICD Code: D72.829 Status: Acute (4) Left hip prosthetic joint infection ICD Code: T84.52XA Status: Acute (5) Chronic systolic CHF (congestive heart failure) ICD Code: I50.22 Status: Chronic Assessment and Plan Neuro/Psych: Dementia disorder NOS Insomnia Patient is currently on fentanyl drip as needed for analgesia while intubated Propofol held secondary to borderline blood pressures Goal of RASS of -2-0 Daily sedation vacation Currently holding Ambien 5 milligrams at night for insomnia. Continue Marinol 5 mg twice a day for anorexia Acetaminophen for fever CV: Coronary artery disease status post CABG 6 Peripheral vascular disease -history of left femoropopliteal with angioplasty/ stenting Hypertension Dyslipidemia Patient is currently on normal saline at 125 cc an hour. Normotensive. Currently on Cardizem at 30 mg 4 times a day and Lopressor 25 mg twice a day for hypertension. Continue Continue Plavix 75 mg by mouth daily for peripheral vascular disease. Continue atorvastatin 20 mg by mouth daily for dyslipidemia Resp: Postoperative respiratory failure PRVC ventilation 12/450/0.8/5/40 Currently on CPAP trials. 10/ and 40% Ventilator bundle. As needed bronchodilator therapy. Plan to extubate today. GI: gAstro Esophageal reflux disease Status post PEG tube Severe protein calorie malnutrition Resume tube feeding with Glucerna 1.5 goal 50 cc an hour Pepcid for GI prophylaxis Colace/as needed Senokot for bowel regimen : BPH UTI Arrieta has been placed for accurate I's and O's in critically ill patient Flomax 0.4 milliequivalents by mouth daily has been resumed Endo: Sliding scale insulin Accu-Cheks to maintain euglycemia. Low regimen Renal: Creatinine currently within normal limits. Monitor urine output closely. Accurate I's and O's Heme: Leukocytosis ABL anemia Currently being transfused 2 units PRBCs. Follow-up around 10. Currently 8.9 Continue Plavix 75 mill grams daily with history of professor disease ID: History of MRSA History C. difficile Recent history of Proteus hardware infection on Levaquin 6 weeks Currently Levaquin 750 mg by mouth daily per ID to complete 6 weeks therapy Currently on vancomycin 125 mg 4 times a day for C. difficile. T new until 2 weeks after Levaquin has been discontinued Continue IV daptomycin for 420 IV daily. Added yesterday by ID Medication Diflucan for mill grams IV daily added 08/20 by ID Pertinent cultures 08/19 - hip -C. albicans 08/18 - wound - MRSA/C. albicans 08/18 - blood cultures 2 - no growth 08/18 - urine - no growth ID consultation for antibiotic management FEN: Hypernatremia Hypopotassemia Hypo-magnesium Replace electrolytes as clinically indicated MSK: Postop day #2 Irrigation and debridement left hip with application of wound VAC /Debridement left ischial decubitus with partial closure and application of wound VAC Dr. Campuzano Stage III sacral decubitus ulcer Stage 2-3 bilateral heel ulcers Seen by Dr. Baptiste 07/30. Recommended Povidine/iodine and zinc oxide cover with Mepilex daily for debridement./iodine Orthophoric postop care. Continue padding for heel ulcers Access - Left subclavian CVL day #3 placed in OR on 08/19 Prophylaxis - GI -Pepcid - DVT - SCD/Lovenox Critical Care: The total care time was 35 minutes. Time to perform other separately billable procedures was not included in the critical care time. Patient is stable from a critical care medicine standpoint. We will transfer care to hospitalist in a.m. 08/22 Problem Qualifiers (1) Type 2 diabetes mellitus: (2) Leukocytosis: Qualified Code: D72.829 - Leukocytosis, unspecified type Andrea Saavedra MD Aug 21, 2016 12:38
[2016-08-21] MEDS ORDERED: POTASSIUM CHLORIDE INJ 30 MEQ in SODIUM CHLORIDE 0.9% INJ 100 ML IV-CENTRAL ONE (12:45)
[2016-08-21] MEDS ORDERED: POTASSIUM CHLORIDE 30 MEQ/NS 100 ML IV-CENTRAL ONE ×2 (13:00)
[2016-08-21] MEDS: MAGNESIUM SULFATE 1 GM PREMIX 100 ML IV SCH ×2 (13:12→13:13)
--- NOTE | 2016-08-21 14:49 | HHI.IDPN ---
Note Infectious Disease Note Patient feels okay. Extubated today. No distress. PAST MEDICAL HISTORY 1. Diabetes mellitus. 2. Hypertension. 3. Alzheimer's disease. 4. Peripheral vascular disease. 5. History of CVA. 6. Coronary artery disease. 7. Coronary bypass graft surgery. 8. Left fem-pop bypass. 9. Left hip arthroplasty in May 2016. ALLERGIES No known drug allergies. Current Medications Medications (Trade) Dose Ordered Sig/[place] Route PRN Reason Start Time Stop Time Status Last Admin Dose Admin Enoxaparin Sodium (Lovenox Inj) 40 mg Q24H SQ 08/18/16 21:00 08/20/16 21:14 Naloxone HCl (Narcan Inj) 0.4 mg UNSCH PRN IV SEE LABEL COMMENTS 08/18/16 20:30 Ascorbic Acid (Vitamin C) 500 mg BID G-TUBE 08/18/16 21:00 08/21/16 08:56 Atorvastatin Calcium (Lipitor) 20 mg DAILY PO 08/19/16 09:00 Hold 08/20/16 08:15 Clopidogrel Bisulfate (Plavix) 75 mg DAILY PO 08/19/16 09:00 08/21/16 08:54 Dronabinol (Marinol) 5 mg BID@11,16 PO 08/19/16 11:00 08/21/16 11:55 Famotidine (Pepcid) 20 mg Q12HR PO 08/18/16 21:00 08/21/16 08:55 Metoprolol Tartrate (Lopressor) 25 mg Q12HR PO 08/18/16 21:00 08/19/16 09:13 Nystatin (Mycostatin Liq) 5 ml QID SWISH-SWAL 08/18/16 21:00 08/21/16 11:55 Potassium Chloride (KCl) 20 meq DAILY PO 08/19/16 09:00 08/19/16 09:13 Tamsulosin HCl (Flomax) 0.4 mg HS PO 08/18/16 21:00 08/19/16 22:13 Vancomycin HCl (VANCOMYCIN for oral use only) 125 mg QID PO 08/18/16 21:00 08/21/16 11:55 Zolpidem Tartrate (Ambien) 5 mg HS PRN PO INSOMNIA 08/18/16 20:45 Multivitamins/ Minerals Therapeutic (Theragran M Tab) 1 tab DAILY GT 08/19/16 09:00 08/21/16 08:55 Dextrose (D50w (Vial) Inj) 25 ml UNSCH PRN IV PUSH HYPOGLYCEMIA-SEE COMMENTS 08/19/16 06:15 Glucagon (Glucagon Inj) 1 mg UNSCH PRN OTHER HYPOGLYCEMIA-SEE COMMENTS 08/19/16 06:15 Miscellaneous Information SPECIFIC LAB TO BE DRAWN:VANCOMYCIN TROUGH DATE TO... ONCE ONCE XX 08/21/16 21:45 08/21/16 21:46 Phenylephrine HCl/ Dextrose (Neosynephrine Inj/D5W 500 ml Inj) 500 ml @ 0 mls/hr TITRATE IV 08/19/16 19:15 Terbutaline Sulfate 1 mg 1 mg UNSCH PRN SQ FOR EXTRAVASATION PROTOCOL 08/19/16 19:15 Propofol (Diprivan 1000 Mg/100ml Inj) 100 ml @ 0 mls/hr TITRATE IV 08/19/16 19:15 08/20/16 17:49 IV Flush (NS Flush) 2 ml UNSCH PRN IVF FLUSH AFTER USING IV ACCESS 08/19/16 19:15 IV Flush (NS Flush) 2 ml BID IVF 08/19/16 21:00 08/20/16 21:13 Diphenhydramine HCl (Benadryl) 25 mg Q6H PRN PO ITCHING 08/19/16 19:15 Chlorhexidine Gluconate 15 ml 15 ml BID@08,20 MT 08/20/16 08:00 08/20/16 07:50 Potassium Chloride 100 ml @ 50 mls/hr Q2H PRN IV For Potassium 2.8 - 3.2 mEq/L 08/19/16 23:00 Potassium Chloride 100 ml @ 50 mls/hr Q2H PRN IV For Potassium 2.8 - 3.2 mEq/L 08/19/16 23:00 Potassium Chloride 100 ml @ 25 mls/hr UNSCH PRN IV For Potassium 3.3 - 3.5 mEq/L 08/19/16 23:00 Potassium Chloride 100 ml @ 50 mls/hr Q2H PRN IV For Potassium 3.3 - 3.5 mEq/L 08/19/16 23:00 Magnesium Sulfate/ Sodium Chloride (Magnesium Sulfate Inj/NS Inj) 100 ml @ 50 mls/hr UNSCH PRN IV For Magnesium 0.9 - 1.1 mg/dL 08/19/16 23:00 Magnesium Oxide 800 mg 800 mg UNSCH PRN PO For Magnesium 1.2 - 1.6 mg/dL 08/19/16 23:00 Magnesium Sulfate/ Sodium Chloride (Magnesium Sulfate Inj/NS Inj) 100 ml @ 50 mls/hr UNSCH PRN IV For Magnesium 1.2 - 1.6 mg/dL 08/19/16 23:00 Potassium Phosphate 2000 mg 2,000 mg Q4H PRN PO For Phosphorus < 2.5 mg/dL 08/19/16 23:00 Sodium Phosphate/ Sodium Chloride (Sodium Phosphate Inj/NS 250 ml Inj) 250 ml @ 42 mls/hr UNSCH PRN IV For Phosphorus < 2.5 mg/dL 08/19/16 23:00 Potassium Phosphate 2000 mg 2,000 mg UNSCH PRN PO/TUBE SEE LABEL COMMENTS 08/19/16 23:00 Potassium Phosphate/Sodium Chloride (Potassium Phosphate Inj/NS 250 ml Inj) 260 ml @ 42 mls/hr UNSCH PRN IV SEE LABEL COMMENTS 08/19/16 23:00 Magnesium Oxide (Mag-Ox) 400 mg BID@06,18 G-TUBE 08/20/16 18:00 08/21/16 06:20 Zinc Sulfate (Zinc Sulfate) 220 mg DAILY@06 G-TUBE 08/21/16 06:00 08/21/16 06:20 Chlorhexidine Gluconate 15 ml 15 ml BID@08,20 MT 08/20/16 20:00 08/21/16 07:25 Fentanyl Citrate 250 ml @ 0 mls/hr TITRATE IV 08/20/16 09:00 08/20/16 10:51 Dexmedetomidine HCl (Precedex Inj) 50 ml @ 0 mls/hr TITRATE IV 08/20/16 09:00 Mupirocin (Bactroban Nasal 2% Oint) 1 applic Taper BID EACH NARE 08/20/16 10:00 08/16/17 09:59 08/21/16 08:54 Insulin Aspart (NovoLOG SUPPLEMENTAL SCALE) 1 Q6HR SQ 08/20/16 12:00 Diltiazem HCl (Cardizem) 30 mg QID PO 08/20/16 10:00 08/21/16 08:58 Docusate Sodium (Colace) 100 mg BID PO 08/20/16 21:00 08/21/16 08:55 Collagenase (Santyl Oint) 1 applic UNSCH PRN TOP WOUND CARE 08/20/16 10:15 08/20/16 10:51 Povidone Iodine 1 applic 1 applic BID PRN TOPICAL WOUND CARE 08/20/16 10:15 Fluconazole/ Sodium Chloride 400 ml @ 200 mls/hr Q24H IV 08/20/16 13:00 08/21/16 11:55 Fluconazole/ Sodium Chloride 400 ml @ 200 mls/hr Q24H IV 08/20/16 15:00 08/20/16 13:40 Daptomycin 420 mg/ Sodium Chloride 100 ml @ 200 mls/hr Q24H IV 08/20/16 16:00 08/20/16 15:47 Sodium Chloride 1,000 ml @ 125 mls/hr Q8H IV 08/20/16 18:00 08/21/16 09:53 Potassium Chloride/Sodium Chloride (KCl Inj/NS Inj) 100 ml @ 33.333 mls/ hr ONCE ONCE IV-CENTRAL 08/21/16 13:00 08/21/16 15:59 08/21/16 13:31 Vital Signs Date Time Temp Pulse Resp B/P Pulse Ox O2 Delivery O2 Flow Rate FiO2 08/21/16 14:00 73 08/21/16 13:48 100 Nasal Cannula 4 36 08/21/16 13:45 100 4.00 08/21/16 13:05 100 35 08/21/16 12:00 68 08/21/16 12:00 35 08/21/16 12:00 97.9 68 15 133/56 100 08/21/16 10:00 71 08/21/16 08:03 63 08/21/16 08:00 98.1 65 18 127/47 100 08/21/16 08:00 35 08/21/16 07:48 100 35 08/21/16 07:00 100 Mechanical Ventilator 35 08/21/16 06:00 64 08/21/16 05:06 100 35 08/21/16 04:00 60 08/21/16 04:00 35 08/21/16 04:00 98.0 60 12 127/44 100 08/21/16 02:00 53 08/21/16 00:40 100 35 08/21/16 00:00 98.0 60 10 122/42 100 08/21/16 00:00 60 08/21/16 00:00 35 08/20/16 22:15 100 35 08/20/16 22:00 35 08/20/16 22:00 61 08/20/16 20:00 40 08/20/16 20:00 57 08/20/16 20:00 98.0 57 12 130/48 100 08/20/16 19:00 100 Mechanical Ventilator 40 08/20/16 18:00 58 08/20/16 17:21 100 40 08/20/16 16:00 72 08/20/16 16:00 97.7 72 12 127/46 100 08/20/16 16:00 40 08/20/16 08/20/16 08/21/16 15:00 23:00 07:00 Intake Total 1040 ml 3122 ml 1064 ml Output Total 200 ml 175 ml 200 ml Balance 840 ml 2947 ml 864 ml IV Total 540 ml 3122 ml 1064 ml Packed Cells 500 ml Output Urine Total 125 ml 125 ml 150 ml Gastric Drainage Total 25 ml 0 ml 0 ml Tube Feeding Residual Discard 0 ml Drainage Total 50 ml 50 ml 50 ml # Bowel Movements 0 0 Laboratory Tests Test 08/20/16 08/20/16 08/20/16 08/21/16 02:45 08:20 17:32 02:35 White Blood Count 21.3 TH/MM3 14.6 TH/MM3 13.9 TH/MM3 Red Blood Count 2.31 MIL/MM3 3.05 MIL/MM3 3.14 MIL/MM3 Hemoglobin 6.7 GM/DL 10.0 GM/DL 8.5 GM/DL 8.9 GM/DL Hematocrit 20.7 % 30.5 % 25.6 % 26.2 % Mean Corpuscular Volume 89.7 FL 84.1 FL 83.7 FL Mean Corpuscular Hemoglobin 29.2 PG 27.8 PG 28.4 PG Mean Corpuscular Hemoglobin 32.5 % 33.1 % 34.0 % Concent Red Cell Distribution Width 18.0 % 19.3 % 19.5 % Platelet Count 275 TH/MM3 218 TH/MM3 221 TH/MM3 Mean Platelet Volume 8.5 FL 8.2 FL 8.6 FL Neutrophils (%) (Auto) 85.5 % Lymphocytes (%) (Auto) 7.3 % Monocytes (%) (Auto) 7.1 % Eosinophils (%) (Auto) 0.0 % Basophils (%) (Auto) 0.1 % Neutrophils # (Auto) 11.9 TH/MM3 Lymphocytes # (Auto) 1.0 TH/MM3 Monocytes # (Auto) 1.0 TH/MM3 Eosinophils # (Auto) 0.0 TH/MM3 Basophils # (Auto) 0.0 TH/MM3 CBC Comment DIFF FINAL Differential Comment Laboratory Tests Test 08/20/16 08/20/16 08/20/16 08/21/16 02:45 08:20 17:32 02:35 Sodium Level 145 MEQ/L 144 MEQ/L 146 MEQ/L Potassium Level 3.8 MEQ/L 3.4 MEQ/L 3.5 MEQ/L Chloride Level 108 MEQ/L 109 MEQ/L 111 MEQ/L Carbon Dioxide Level 23.6 MEQ/L 26.9 MEQ/L 27.0 MEQ/L Anion Gap 13 MEQ/L 8 MEQ/L 8 MEQ/L Blood Urea Nitrogen 10 MG/DL 9 MG/DL 10 MG/DL Creatinine 0.72 MG/DL 0.81 MG/DL 0.81 MG/DL Estimat Glomerular Filtration 106 ML/MIN 92 ML/MIN 92 ML/MIN Rate Random Glucose 137 MG/DL 93 MG/DL 101 MG/DL Lactic Acid Level 1.3 mmol/L Calcium Level 7.2 MG/DL 7.0 MG/DL 7.1 MG/DL Protein Corrected Calcium 8.6 MG/DL 8.4 MG/DL 8.6 MG/DL Total Protein 4.6 GM/DL 4.6 GM/DL 4.4 GM/DL Phosphorus Level 4.2 MG/DL 2.8 MG/DL Magnesium Level 1.7 MG/DL 1.5 MG/DL Total Bilirubin 0.4 MG/DL Aspartate Amino Transf 16 U/L (AST/SGOT) Alanine Aminotransferase 13 U/L (ALT/SGPT) Alkaline Phosphatase 93 U/L Albumin 1.8 GM/DL Microbiology Date/Time Procedure Status Source Growth 08/18/16 17:55 Gram Stain - Final Complete Wound Hip 08/18/16 17:55 Wound Culture - Final Complete S. Aureus Mrsa Nicolette Albicans 08/18/16 18:08 Aerobic Blood Culture - Preliminary Resulted Blood Peripheral NO GROWTH IN 3 DAYS 08/18/16 18:08 Anaerobic Blood Culture - Preliminary Resulted Blood Peripheral NO GROWTH IN 3 DAYS 3/8/17 18:28 Aerobic Blood Culture - Preliminary Resulted Blood Peripheral NO GROWTH IN 3 DAYS 3 18:28 Anaerobic Blood Culture - Preliminary Resulted Blood Peripheral NO GROWTH IN 3 DAYS 08/18/16 18:35 Urine Culture - Final Complete Urine Catheterized Urine NO GROWTH IN 48 HOURS. 08/19/16 18:31 Gram Stain - Final Resulted Wound Hip 08/19/16 18:31 Wound Culture - Preliminary Resulted Nicolette Albicans 08/19/16 18:31 Acid Fast Stain - Final Resulted Wound Hip NO ACID FAST BACILLI SEEN 08/19/16 18:31 Mycobacterial Culture Resulted Wound Hip Pending 3 18:31 Fungal Smear - Final Resulted Wound Hip NO FUNGAL ELEMENTS SEEN. 08/19/16 18:31 Fungal Culture Resulted Wound Hip Pending PHYSICAL EXAMINATION GENERAL: Awake and alert. No acute distress. He is mildly sedated and unresponsive currently. HEENT: No icterus. NECK: Supple. No swelling and no adenopathy. LUNGS: Decreased breath sounds. HEART: Regular S1, S2, without audible murmurs, rubs or gallops. ABDOMEN: Bowel sounds present but diminished. Soft, nontender. EXTREMITIES: Left hip has a vacuum apparatus exiting the left hip wound bed. This has serosanguineous drainage. The remainder of the extremities have no clubbing or cyanosis. 1+ edema. SKIN: No diffuse rash. NEUROLOGIC: Unable to fully assess. IMPRESSION 1. 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 The patient also has Nicolette in the wound culture. 2. Status post left hip arthroplasty, status post Girdlestone arthroplasty. 3. History of C. difficile colitis. 4. Leukocytosis. RECOMMENDATIONS 1. Continue Daptomycin. 2. Continue Diflucan for Nicolette albicans. 3. Continue p.o. vancomycin for C. difficile coverage while the patient is on antibiotics and monitor his stools. Pablo Draper MD Aug 21, 2016 14:49
[2016-08-21] MEDS: DAPTOMYCIN IV SCH (15:38)
[2016-08-21] MEDS: SODIUM CHLORIDE 0.9% IV SCH (15:38)
[2016-08-21] MEDS ORDERED: ACETAMINOPHEN 325 MG TAB PO PRN (16:45)
[2016-08-21] MEDS ORDERED: MISCELLANEOUS NURSING INFORMATION XX SCH (16:45)
[2016-08-21] MEDS ORDERED: CHLORHEXIDINE GLUCONATE 2 % 1 PACK (2 CLOTHS) TOP PRN (16:45)
[2016-08-21] MEDS: ZOLPIDEM TARTRATE 5 MG TAB PO PRN (18:27)
[2016-08-21] MEDS: ACETAMINOPHEN/HYDROcodone 325 MG/5 MG TAB PO PRN (19:20)
[2016-08-21] MEDS: TAMSULOSIN HCL 0.4 MG CAP PO SCH (20:30)
[2016-08-21] MEDS: ENOXAPARIN SODIUM 40 MG/0.4 ML SYRINGE SQ SCH (20:30)
[2016-08-21] MEDS: RESP: ALBUTEROL 2.5 MG/IPRATROPIUM 0.5 MG NEB (SCH) NEB (21:19)
[2016-08-21] MEDS ORDERED: PHARMACY ORDERED LAB XX ONE (21:45)
[2016-08-22] VITALS (14 sets, daily range): BP systolic 140–169; BP diastolic 56–72; PULSE 62–98; RESP 15–28; TEMP 97.4–97.7; O2SAT 94–100
[2016-08-22] MEDS: INSULIN ASPART SUPPLEMENTAL SCALE SQ SCH ×4 (00:54→17:57)
[2016-08-22] MEDS: SODIUM CHLOR 0.9% 1000 ML INJ 1,000 ML IV SCH ×2 (01:38→09:08)
[2016-08-22] MEDS: ACETAMINOPHEN/HYDROcodone 325 MG/5 MG TAB PO PRN ×2 (01:57→21:58)
[2016-08-22] MEDS: CHLORHEXIDINE GLUCONATE 2 % 1 PACK (2 CLOTHS) TOP SCH (04:00)
[2016-08-22] MEDS: RESP: ALBUTEROL 2.5 MG/IPRATROPIUM 0.5 MG NEB (SCH) NEB ×4 (04:54→21:52)
[2016-08-22] MEDS: ZINC SULFATE 220 MG CAP G-TUBE SCH (05:10)
[2016-08-22 05:11] LABS: AUTOMATED NEUTROPHIL # 16.5 TH/MM3 (1.8-7.7); BASOPHIL # 0.1 TH/MM3 (0-0.2); BASOPHIL % 0.3 % (0.0-2.0); HEMATOCRIT 31.7 % (39.0-51.0); HEMO FLAGS DIFF FINAL; LYMPH % 11.4 % (9.0-44.0); LYMPHOCYTE # 2.3 TH/MM3 (1.0-4.8); MEAN CELL VOLUME 85.4 FL (80.0-100.0); MEAN CORPUSCULAR HEMOGLOBIN 27.8 PG (27.0-34.0); MEAN CORPUSCULAR HGB CONC 32.5 % (32.0-36.0); MONO % 6.3 % (0.0-8.0); PLATELET COUNT 282 TH/MM3 (150-450); RED BLOOD COUNT 3.71 MIL/MM3 (4.50-5.90); RED CELL DISTRIBUTION WIDTH 19.7 % (11.6-17.2); WHITE BLOOD COUNT 20.1 TH/MM3 (4.0-11.0)
[2016-08-22] MEDS: MAGNESIUM OXIDE 400 MG TAB G-TUBE SCH ×2 (05:11→17:56)
[2016-08-22 05:54] LABS: BICARBONATE 26.6 MEQ/L (21.0-32.0); CALCIUM-PROTEIN CORRECTED 8.3 MG/DL (8.5-10.1); POTASSIUM 3.7 MEQ/L (3.5-5.1); TOTAL BILIRUBIN ADULT 0.3 MG/DL (0.2-1.0)
--- NOTE | 2016-08-22 06:34 | RADRPT ---
EXAM DATE/TIME: 08/22/2016 05:08 [facility] COMPARISON: CHEST SINGLE AP, August 21, 2016, 4:07. INDICATIONS : Shortness of breath. MEDICAL HISTORY : Hypertension. Myocardial infarction. Diabetes mellitus type II. SURGICAL HISTORY : CABG. ENCOUNTER: Subsequent ACUITY: 1 week PAIN SCORE: Non-responsive. LOCATION: Bilateral chest FINDINGS: Interval extubation. There is persistent opacity in the right mid and lower lung with meniscal inter face lower lateral. There is increasing infiltrate in the left mid and lower lung with left lower radha ng consolidation. Left subclavian catheter tip projects over the proximal superior vena cava. Drake al wire sutures. CONCLUSION: Persistent right pleural effusion and diffuse infiltrates. Increasing infiltrates in the left lung. Roberto Hanley MD on August 22, 2016 at 6:31 Board Certified Radiologist. This report was verified electronically.
[2016-08-22] MEDS: SODIUM CHLORIDE 0.9% FLUSH 5 ML FLUSH IVF SCH ×2 (07:41→21:00)
[2016-08-22] MEDS: CHLORHEXIDINE 0.12% (ORAL KIT) 15 ML CUP MT SCH ×4 (07:41→19:32)
[2016-08-22] MEDS: DILTIAZEM HCL 30 MG TAB PO SCH ×4 (09:00→21:57)
[2016-08-22] MEDS: DOCUSATE SODIUM 100 MG CAP PO SCH ×2 (09:00→21:00)
[2016-08-22] MEDS: MULTIVITAMINS/MINERALS THERAPEUTIC TAB GT SCH (09:00)
[2016-08-22] MEDS: FAMOTIDINE 20 MG TAB PO SCH ×2 (09:00→21:59)
[2016-08-22] MEDS: ASCORBIC ACID 500 MG TAB G-TUBE SCH ×2 (09:00→21:57)
[2016-08-22] MEDS: POTASSIUM CHLORIDE 20 MEQ CONTROLLED RELEASE TAB PO SCH (09:00)
[2016-08-22] MEDS: VANCOMYCIN 500 MG VIAL (FOR ORAL USE ONLY) PO SCH ×4 (09:00→21:59)
[2016-08-22] MEDS: NYSTATIN SUSP 500,000 U/5 ML CUP SWISH-SWAL SCH ×4 (09:07→21:59)
[2016-08-22] MEDS: MUPIROCIN 2% OINT 1 APPLIC/GM SYR EACH NARE SCH ×2 (09:07→21:58)
[2016-08-22] MEDS: MORPHINE SULFATE 4 MG/ML INJ IV PRN (10:25)
--- NOTE | 2016-08-22 12:08 | HHI.PR ---
Subjective Remarks ill and cachectic looking. sounds congested. no fever. d/w the RN. Objective Vitals Vital Signs Date Time Temp Pulse Resp B/P Pulse Ox O2 Delivery O2 Flow Rate FiO2 08/22/16 10:45 96 Nasal Cannula 4.00 08/22/16 10:00 69 08/22/16 08:00 92 08/22/16 08:00 97.4 92 20 157/67 94 08/22/16 07:00 96 Nasal Cannula 4.00 08/22/16 06:00 90 08/22/16 04:00 97.4 76 22 154/64 98 08/22/16 04:00 76 08/22/16 02:00 68 08/22/16 00:00 97.7 68 23 140/56 99 08/22/16 00:00 68 08/21/16 22:00 73 08/21/16 21:20 99 Nasal Cannula 4.00 08/21/16 20:00 95 08/21/16 20:00 97.7 95 22 146/61 100 08/21/16 19:00 100 Nasal Cannula 4.00 08/21/16 18:00 84 08/21/16 16:00 98.0 82 19 143/64 100 08/21/16 16:00 82 08/21/16 14:00 73 08/21/16 13:48 100 Nasal Cannula 4 36 08/21/16 13:45 100 4.00 08/21/16 13:05 100 35 I/O 08/21/16 08/21/16 08/21/16 08/22/16 08/22/16 08/22/16 07:00 15:00 23:00 07:00 15:00 23:00 Intake Total 1064 ml 1473 ml 1810 ml 1275 ml Output Total 200 ml 175 ml 300 ml 225 ml Balance 864 ml 1298 ml 1510 ml 1050 ml IV Total 1064 ml 1170 ml 1225 ml 775 ml Tube Feeding 303 ml 385 ml 250 ml Tube Irrigant 200 ml 250 ml Output Urine Total 150 ml 125 ml 250 ml 175 ml Gastric Drainage Total 0 ml 0 ml 0 ml Tube Feeding Residual Discard 0 ml 0 ml Drainage Total 50 ml 50 ml 50 ml 50 ml # Bowel Movements 0 0 1 1 Result Diagram: 08/22/16 0500 08/22/16 0500 Imaging Last Impressions Chest X-Ray 08/21/16 0600 Signed Impressions: Service Date/Time: Sunday, August 21, 2016 04:07 - CONCLUSION: Increasing consolidation in the left lower lung and new opacities in the right lower lung suggesting infiltrate, effusion, or a combination of both. Roberto Hanley MD Renal Ultrasound 08/20/16 0000 Signed Impressions: Service Date/Time: Saturday, August 20, 2016 22:51 - CONCLUSION: 1. Symmetric renal size. No evidence of hydronephrosis. 2. Bilateral pleural effusions and abnormal appearance to the gallbladder with wall thickening and probable stone. Roberto Hanley MD Objective Remarks GENERAL: ill and cachectic looking- CARDIOVASCULAR: Regular rate and regular rhythm without murmurs, gallops, or rubs. RESPIRATORY: sounds congested with some wheezing GASTROINTESTINAL: Abdomen soft, non-tender, nondistended. Normal, active bowel sounds MUSCULOSKELETAL: Extremities without clubbing, cyanosis, or edema. NEURO: awake and alert Medications and IVs Current Medications Piperacillin Sod/ Tazobactam Sod 100 ml @ 200 mls/hr ONCE STAT IV Last administered on 08/18/16 20:30; Start 08/18/16 at 17:52; Stop 08/18/16 at 18:21; Status DC Vancomycin HCl 1000 mg/Sodium Chloride 250 ml @ 250 mls/hr ONCE STAT IV Last administered on 08/18/16 21:19; Start 08/18/16 at 17:52; Stop 08/18/16 at 18:51; Status DC Sodium Chloride 1,000 ml @ 1,000 mls/hr Q1H ONCE IV Last administered on 18:52; Start 08/18/16 at 17:52; Stop 08/18/16 at 18:51; Status DC Sodium Chloride 1,000 ml @ 1,000 mls/hr Q1H ONCE IV Last administered on 18:52; Start 08/18/16 at 17:52; Stop 08/18/16 at 18:51; Status DC Sodium Chloride 100 ml @ 1,000 mls/hr Q6M ONCE IV ; Start 08/18/16 at 17:52; Stop 08/18/16 at 17:57; Status DC Potassium Chloride (KCl 20 Meq Premix Inj) 100 ml @ 50 mls/hr Q2H IV Last administered on 08/18/16 22:14; Start 08/18/16 at 20:15; Stop 08/19/16 at 00:14; Status DC IV Flush (NS Flush) 2 ml UNSCH PRN FLUSH FLUSH AFTER USING IV ACCESS; Start 08/18/16 at 20:30; Stop 08/19/16 at 20:16; Status DC IV Flush (NS Flush) 2 ml BID FLUSH Last administered on 08/19/16 09:14; Start 08/18/16 at 21:00; Stop 08/19/16 at 20:16; Status DC Enoxaparin Sodium (Lovenox Inj) 40 mg Q24H SQ Last administered on 08/21/16 20 :30; Start 08/18/16 at 21:00 Naloxone HCl (Narcan Inj) 0.4 mg UNSCH PRN IV SEE LABEL COMMENTS; Start at 20:30 Ascorbic Acid (Vitamin C) 500 mg BID G-TUBE Last administered on 08/21/16 20: 29; Start 08/18/16 at 21:00 Atorvastatin Calcium (Lipitor) 20 mg DAILY PO Last administered on 08/20/16 08 :15; Start 08/19/16 at 09:00; Status Hold Clopidogrel Bisulfate (Plavix) 75 mg DAILY PO Last administered on 08/21/16 08 :54; Start 08/19/16 at 09:00 Diltiazem HCl (Cardizem Cd) 120 mg DAILY PO Last administered on 08/19/16 16:05 ; Start 08/19/16 at 09:00; Stop 08/20/16 at 09:14; Status DC Dronabinol (Marinol) 5 mg BID@11,16 PO Last administered on 08/21/16 15:38; Start 08/19/16 at 11:00 Famotidine (Pepcid) 20 mg Q12HR PO Last administered on 08/21/16 20:29; Start 08/18/16 at 21:00 Levofloxacin (Levaquin) 750 mg DAILY PO Last administered on 08/19/16 09:13; Start 08/19/16 at 09:00; Stop 08/20/16 at 08:31; Status DC Magnesium Oxide (Mag-Ox) 400 mg Q12HR G-TUBE Last administered on 08/20/16 08: 14; Start 08/18/16 at 21:00; Stop 08/20/16 at 08:34; Status DC Metoprolol Tartrate (Lopressor) 25 mg Q12HR PO Last administered on 08/21/16 20:29; Start 08/18/16 at 21:00 Nystatin (Mycostatin Liq) 5 ml QID SWISH-SWAL Last administered on 08/22/16 09:07; Start 08/18/16 at 21:00 Potassium Chloride (KCl) 20 meq DAILY PO Last administered on 08/19/16 09:13; Start 08/19/16 at 09:00 Tamsulosin HCl (Flomax) 0.4 mg HS PO Last administered on 08/19/16 22:13; Start 08/18/16 at 21:00 Vancomycin HCl (VANCOMYCIN for oral use only) 125 mg QID PO Last administered on 08/21/16 20:30; Start 08/18/16 at 21:00 Zinc Sulfate (Zinc Sulfate) 220 mg DAILY G-TUBE Last administered on 08/20/16 08:14; Start 08/19/16 at 09:00; Stop 08/20/16 at 08:35; Status DC Zolpidem Tartrate (Ambien) 5 mg HS PRN PO INSOMNIA Last administered on 18:27; Start 08/18/16 at 20:45 Non-Formulary Medication 15 ml DAILY G-TUBE ; Start 08/19/16 at 09:00; Status UNV Non-Formulary Medication 15 ml 15 ml CONTINUOUS PO ; Start 08/18/16 at 20:45; Status UNV Pharmacy Profile Note 0 ml @ 0 mls/hr UNSCH OTHER ; Start 08/18/16 at 20:45; Stop 08/20/16 at 12:15; Status DC Piperacillin Sod/ Tazobactam Sod (Zosyn 4.5 Gm Premix) 100 ml @ 200 mls/hr Q6H IV Last administered on 08/20/16 08:15; Start 08/19/16 at 03:00; Stop 08/20/16 at 12:16; Status DC Multivitamins/ Minerals Therapeutic 1 tab 1 tab DAILY GT Last administered on 08:55; Start 08/19/16 at 09:00 Vancomycin HCl/ Sodium Chloride (Vancomycin Inj/ NS 250 ml Inj) 262.5 ml @ 250 mls/hr Q12H IV ; Start 08/19/16 at 08:00; Status Cancel Miscellaneous Information SPECIFIC LAB TO BE DRAWN:VANCO TROUGH DATE TO BE DR... ONCE ONCE XX ; Start 08/20/16 at 07:45; Stop 08/20/16 at 07:46; Status Cancel Furosemide (Lasix Inj) 40 mg ONCE ONCE IV PUSH Last administered on 08/19/16 00:17; Start 08/19/16 at 00:00; Stop 08/19/16 at 00:01; Status DC Potassium Bicarbonate (Effer-K Eff) 50 meq ONCE ONCE GT Last administered on 00:16; Start 08/19/16 at 00:00; Stop 08/19/16 at 00:01; Status DC Dextrose (D50w (Vial) Inj) 25 ml UNSCH PRN IV PUSH HYPOGLYCEMIA-SEE COMMENTS; Start 08/19/16 at 06:15 Glucagon (Glucagon Inj) 1 mg UNSCH PRN OTHER HYPOGLYCEMIA-SEE COMMENTS; Start 08/19/16 at 06:15 Insulin Aspart 1 1 ACHS SLIDING SCALE SQ ; Start 08/19/16 at 07:00; Stop at 09:14; Status DC Vancomycin HCl/ Sodium Chloride (Vancomycin Inj/ NS 250 ml Inj) 257.5 ml @ 250 mls/hr Q24H IV Last administered on 08/19/16 22:52; Start 08/19/16 at 22:00; Stop 08/20/16 at 12:16; Status DC Miscellaneous Information SPECIFIC LAB TO BE DRAWN:VANCOMYCIN TROUGH DATE TO... ONCE ONCE XX Last administered on 08/21/16 21:45; Start 08/21/16 at 21:45; Stop 08/21/16 at 21:46; Status DC Gentamicin Sulfate (Gentamicin Inj) 240 mg STK-MED ONCE .ROUTE ; Start 08/19/16 at 14:46; Stop 08/19/16 at 14:47; Status DC Sugammadex Sodium (Bridion Inj) 200 mg STK-MED ONCE IV PUSH ; Start 08/19/16 at 16:45; Stop 08/19/16 at 16:46; Status DC Famotidine (Pepcid Inj) 20 mg STK-MED ONCE .ROUTE ; Start 08/19/16 at 16:46; Stop 08/19/16 at 16:47; Status DC Neomycin/Polymyxin (Neosporin G.u. Irr) 2 ml STK-MED ONCE IR Last administered on 08/19/16 18:00; Start 08/19/16 at 18:00; Stop 08/19/16 at 18:23; Status DC Fentanyl Citrate 250 mcg 250 mcg STK-MED ONCE .ROUTE ; Start 08/19/16 at 19:03; Stop 08/19/16 at 19:04; Status DC Phenylephrine HCl/ Dextrose (Neosynephrine Inj/D5W 500 ml Inj) 500 ml @ 0 mls/ hr TITRATE IV ; Start 08/19/16 at 19:15 Terbutaline Sulfate 1 mg 1 mg UNSCH PRN SQ FOR EXTRAVASATION PROTOCOL; Start at 19:15 Propofol (Diprivan 1000 Mg/100ml Inj) 100 ml @ 0 mls/hr TITRATE IV Last administered on 08/20/16 17:49; Start 08/19/16 at 19:15; Stop 08/21/16 at 16:35 ; Status DC Phenylephrine HCl (Neosynephrine Inj) 40 mg STK-MED ONCE .ROUTE ; Start 08/19/16 at 19:15; Stop 08/19/16 at 19:16; Status DC IV Flush (NS Flush) 2 ml UNSCH PRN IVF FLUSH AFTER USING IV ACCESS; Start at 19:15 IV Flush (NS Flush) 2 ml BID IVF Last administered on 08/22/16 07:41; Start at 21:00 Diphenhydramine HCl (Benadryl) 25 mg Q6H PRN PO ITCHING; Start 08/19/16 at 19:15 Miscellaneous Information ALL NURSING DEPARTME... UNSCH PRN XX SEE LABEL COMMENTS; Start 08/19/16 at 20:15; Stop 08/20/16 at 20:14; Status DC Miscellaneous Information ALL NURSING DEPARTME... UNSCH PRN XX SEE LABEL COMMENTS; Start 08/19/16 at 20:15; Stop 08/20/16 at 20:14; Status Cancel Chlorhexidine Gluconate 15 ml 15 ml BID@08,20 MT Last administered on t 07:50; Start 08/20/16 at 08:00 Potassium Chloride 100 ml @ 50 mls/hr Q2H PRN IV For Potassium 2.8 - 3.2 mEq/L ; Start 08/19/16 at 23:00 Potassium Chloride 100 ml @ 50 mls/hr Q2H PRN IV For Potassium 2.8 - 3.2 mEq/L ; Start 08/19/16 at 23:00 Potassium Chloride 100 ml @ 25 mls/hr UNSCH PRN IV For Potassium 3.3 - 3.5 mEq /L; Start 08/19/16 at 23:00 Potassium Chloride 100 ml @ 50 mls/hr Q2H PRN IV For Potassium 3.3 - 3.5 mEq/L ; Start 08/19/16 at 23:00 Magnesium Sulfate/ Sodium Chloride (Magnesium Sulfate Inj/NS Inj) 100 ml @ 50 mls/hr UNSCH PRN IV For Magnesium 0.9 - 1.1 mg/dL; Start 08/19/16 at 23:00 Magnesium Oxide 800 mg 800 mg UNSCH PRN PO For Magnesium 1.2 - 1.6 mg/dL; Start 08/19/16 at 23:00 Magnesium Sulfate/ Sodium Chloride (Magnesium Sulfate Inj/NS Inj) 100 ml @ 50 mls/hr UNSCH PRN IV For Magnesium 1.2 - 1.6 mg/dL; Start 08/19/16 at 23:00 Potassium Phosphate 2000 mg 2,000 mg Q4H PRN PO For Phosphorus < 2.5 mg/dL; Start 08/19/16 at 23:00 Sodium Phosphate/ Sodium Chloride (Sodium Phosphate Inj/NS 250 ml Inj) 250 ml @ 42 mls/hr UNSCH PRN IV For Phosphorus < 2.5 mg/dL; Start 08/19/16 at 23:00 Potassium Phosphate 2000 mg 2,000 mg UNSCH PRN PO/TUBE SEE LABEL COMMENTS; Start 08/19/16 at 23:00 Potassium Phosphate/Sodium Chloride (Potassium Phosphate Inj/NS 250 ml Inj) 260 ml @ 42 mls/hr UNSCH PRN IV SEE LABEL COMMENTS; Start 08/19/16 at 23:00 Levofloxacin (Levaquin) 750 mg DAILY@1000 PO Last administered on 08/20/16t 10: 50; Start 08/20/16 at 10:00; Stop 08/20/16 at 12:16; Status DC Magnesium Oxide (Mag-Ox) 400 mg BID@06,18 G-TUBE Last administered on 17:57; Start 08/20/16 at 18:00 Zinc Sulfate (Zinc Sulfate) 220 mg DAILY@06 G-TUBE Last administered on 06:20; Start 08/21/16 at 06:00 Chlorhexidine Gluconate 15 ml 15 ml BID@08,20 MT Last administered on 09:07; Start 08/20/16 at 20:00 Fentanyl Citrate 250 ml @ 0 mls/hr TITRATE IV Last administered on 08/20/16 10 :51; Start 08/20/16 at 09:00; Stop 08/21/16 at 16:35; Status DC Dexmedetomidine HCl (Precedex Inj) 50 ml @ 0 mls/hr TITRATE IV ; Start 08/20/16 at 09:00; Stop 08/21/16 at 20:09; Status DC Mupirocin (Bactroban Nasal 2% Oint) 1 applic Taper BID EACH NARE Last administered on 08/22/16 09:07; Start 08/20/16 at 10:00; Stop 08/16/17 at 09:59 Insulin Aspart (NovoLOG SUPPLEMENTAL SCALE) 1 Q6HR SQ Last administered on 08/22 00:54; Start 08/20/16 at 12:00 Diltiazem HCl (Cardizem) 30 mg QID PO Last administered on 08/21/16 20:29; Start 08/20/16 at 10:00 Docusate Sodium (Colace) 100 mg BID PO Last administered on 08/21/16 08:55; Start 08/20/16 at 21:00 Collagenase (Santyl Oint) 1 applic UNSCH PRN TOP WOUND CARE Last administered on 08/20/16 10:51; Start 08/20/16 at 10:15 Povidone Iodine 1 applic 1 applic BID PRN TOPICAL WOUND CARE; Start 08/20/16 at 10:15 Daptomycin 420 mg/ Sodium Chloride 100 ml @ 200 mls/hr Q24H IV ; Start at 14:00; Stop 08/20/16 at 15:12; Status DC Fluconazole/ Sodium Chloride (Diflucan 400 Mg Premix Bag) 400 ml @ 200 mls/hr Q24H IV Last administered on 08/21/16 11:55; Start 08/20/16 at 13:00 Albumin Human 50 gm 50 gm ONCE ONCE IV Last administered on 08/20/16 12:48; Start 08/20/16 at 12:45; Stop 08/20/16 at 12:46; Status DC Lactated Ringer's 1,000 ml @ 999 mls/hr BOLUS ONCE IV Last administered on 12:45; Start 08/20/16 at 12:45; Stop 08/20/16 at 13:45; Status DC Fluconazole/ Sodium Chloride 400 ml @ 200 mls/hr Q24H IV ; Start 08/20/16 at 13 :00; Status Cancel Fluconazole/ Sodium Chloride 400 ml @ 200 mls/hr Q24H IV Last administered on 08/21/16 14:47; Start 08/20/16 at 15:00 Daptomycin 420 mg/ Sodium Chloride 100 ml @ 200 mls/hr Q24H IV Last administered on 08/21/16 15:38; Start 08/20/16 at 16:00 Sodium Chloride 1,000 ml @ 125 mls/hr Q8H IV Last administered on 08/22/16 09 :08; Start 08/20/16 at 18:00 Sodium Chloride 1,000 ml @ 999 mls/hr BOLUS ONCE IV Last administered on 08/20 17:24; Start 08/20/16 at 17:00; Stop 08/20/16 at 18:00; Status DC Magnesium Sulfate/ Dextrose 100 ml @ 100 mls/hr Q1H IV Last administered on 13:13; Start 08/21/16 at 10:00; Stop 08/21/16 at 12:42; Status DC Potassium Chloride 30 meq/ Sodium Chloride 115 ml @ 38.333 mls/ hr ONCE ONCE IV-CENTRAL Last administered on 08/21/16 12:45; Start 08/21/16 at 12:45; Stop 08/21/16 at 12:48; Status DC Potassium Chloride/Sodium Chloride (KCl Inj/NS Inj) 100 ml @ 33.333 mls/ hr ONCE ONCE IV-CENTRAL Last administered on 08/21/16 13:31; Start 08/21/16 at 13:00; Stop 08/21/16 at 15:59; Status DC Acetaminophen (Tylenol) 650 mg Q6H PRN PO FEVER >101F; Start 08/21/16 at 16:45 Acetaminophen/ Hydrocodone Bitart ([place] 5-325 Mg) 1 tab Q4H PRN PO PAIN SCALE 1 TO 5 Last administered on 08/22/16 01:57; Start 08/21/16 at 16:45 Morphine Sulfate (Morphine Inj) 2 mg Q2H PRN IV PAIN SCALE 6 TO 10 Last administered on 08/22/16 10:25; Start 08/21/16 at 16:45 Miscellaneous Information 1 Q361D XX Last administered on 08/21/16 17:46; Start 08/21/16 at 16:45 Chlorhexidine Gluconate (Chlorhexidine 2% Cloth) 3 pack Taper DAILY@04 TOP ; Start 08/22/16 at 04:00; Stop 08/18/17 at 03:59 Chlorhexidine Gluconate (Chlorhexidine 2% Cloth) 3 pack UNSCH PRN TOP HYGIENIC CARE; Start 08/21/16 at 16:45 Albuterol/ Ipratropium (Duoneb Neb) 1 ampule Q6HR NEB NEB Last administered on 08/22/16 10:38; Start 08/21/16 at 22:00 Albuterol/ Ipratropium (Duoneb Neb) 1 ampule Q2HR NEB PRN NEB dyspnea; Start at 20:15 Date of Insertion: Aug 19, 2016 Line: Central Venous Catheter Side: Left Location: Subclavian A/P Assessment and Plan A/P Postoperative respiratory failure- s/p intubation/ extubation keep on oxygen to keep O2 sat > 90% As needed bronchodilator therapy. s/p Irrigation and debridement left hip with application of wound VAC/ Debridement left ischial decubitus with partial closure and application of wound VAC Dr. Campuzano Stage III sacral decubitus ulcer Stage 2-3 bilateral heel ulcers Seen by Dr. Baptiste 07/30. Recommended Povidine/iodine and zinc oxide cover with Mepilex daily for debridement./iodine Orthophoric postop care. Continue padding for heel ulcers continue Abx per ID recommendations Coronary artery disease status post CABG 6 cardiomyopathy with EF 35% on recent echo Peripheral vascular disease -history of left femoropopliteal with angioplasty/ stenting Hypertension Dyslipidemia hold IV fluid one dose of IV lasix today Currently on Cardizem at 30 mg 4 times a day and Lopressor 25 mg twice a day for hypertension. Continue Continue Plavix 75 mg by mouth daily for peripheral vascular disease. Continue atorvastatin 20 mg by mouth daily for dyslipidemia gastro Esophageal reflux disease Status post PEG tube Severe protein calorie malnutrition on tube feeding with Glucerna 1.5 goal 50 cc an hour Pepcid for GI prophylaxis Colace/as needed Senokot for bowel regimen BPH UTI Arrieta has been placed for accurate I's and O's in critically ill patient Flomax 0.4 milliequivalents by mouth daily has been resumed Leukocytosis anemia- s/p PRBC transfusion monitor H/H periodically. History of MRSA History C. 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 albicans 08/18 - wound - MRSA/C. albicans 08/18 - blood cultures 2 - no growth 08/18 - urine - no growth Hypernatremia Hypopotassemia Hypo-magnesium Replace electrolytes as clinically indicated Dementia disorder NOS Insomnia Continue Marinol 5 mg twice a day for anorexia Acetaminophen for fever Prophylaxis - GI -Pepcid - DVT - SCD/Lovenox patient is ill-looking. called the ex- to discuss the code status and extent of care; was not able to reach. will keep in ICU for close monitoring.low threshold for critical care reconsult. will consider palliative care evaluation. d/w the RN. Vi Caraballo MD Aug 22, 2016 12:08 Vi Caraballo MD Aug 22, 2016 12:08
[2016-08-22] MEDS ORDERED: FUROSEMIDE 20 MG/2 ML VIAL IV PUSH ONE (12:15)
[2016-08-22] MEDS: FLUCONAZOLE 400 MG PREMIX BAG 400 ML IV SCH ×2 (12:34→15:01)
[2016-08-22] MEDS: METOPROLOL TARTRATE 25 MG TAB PO SCH ×2 (12:35→21:57)
[2016-08-22] MEDS: CLOPIDOGREL 75 MG TAB PO SCH (12:35)
[2016-08-22] MEDS: DRONABINOL 5 MG CAP PO SCH ×2 (12:35→16:34)
[2016-08-22] MEDS: SODIUM CHLORIDE 0.9% IV SCH (16:34)
[2016-08-22] MEDS: DAPTOMYCIN IV SCH (16:34)
[2016-08-22] MEDS: TAMSULOSIN HCL 0.4 MG CAP PO SCH (21:00)
[2016-08-22] MEDS: ZOLPIDEM TARTRATE 5 MG TAB PO PRN (21:57)
[2016-08-22] MEDS: ENOXAPARIN SODIUM 40 MG/0.4 ML SYRINGE SQ SCH (21:58)
[2016-08-23] VITALS (14 sets, daily range): BP systolic 132–163; BP diastolic 49–82; PULSE 75–102; RESP 19–27; TEMP 97.7–97.9; O2SAT 91–99
[2016-08-23] MEDS: INSULIN ASPART SUPPLEMENTAL SCALE SQ SCH ×4 (00:30→18:00)
[2016-08-23] MEDS: RESP: ALBUTEROL 2.5 MG/IPRATROPIUM 0.5 MG NEB (PRN) NEB ×2 (00:35→11:12)
[2016-08-23] MEDS: RESP: ALBUTEROL 2.5 MG/IPRATROPIUM 0.5 MG NEB (SCH) NEB ×5 (03:47→23:57)
[2016-08-23 03:52] LABS: AUTOMATED NEUTROPHIL # 21.7 TH/MM3 (1.8-7.7); BASOPHIL % 0.1 % (0.0-2.0); HEMATOCRIT 29.5 % (39.0-51.0); HEMO FLAGS DIFF FINAL; LYMPH % 3.1 % (9.0-44.0); LYMPHOCYTE # 0.7 TH/MM3 (1.0-4.8); MEAN CELL VOLUME 84.7 FL (80.0-100.0); MEAN CORPUSCULAR HEMOGLOBIN 27.4 PG (27.0-34.0); MEAN CORPUSCULAR HGB CONC 32.4 % (32.0-36.0); NEUT % 92.8 % (16.0-70.0); PLATELET COUNT 239 TH/MM3 (150-450); RED BLOOD COUNT 3.48 MIL/MM3 (4.50-5.90); RED CELL DISTRIBUTION WIDTH 19.2 % (11.6-17.2); WHITE BLOOD COUNT 23.4 TH/MM3 (4.0-11.0)
[2016-08-23] MEDS: CHLORHEXIDINE GLUCONATE 2 % 1 PACK (2 CLOTHS) TOP SCH (03:57)
[2016-08-23 04:24] LABS: BICARBONATE 26.3 MEQ/L (21.0-32.0); POTASSIUM 3.5 MEQ/L (3.5-5.1)
[2016-08-23] MEDS: ZINC SULFATE 220 MG CAP G-TUBE SCH (05:03)
[2016-08-23] MEDS: MAGNESIUM OXIDE 400 MG TAB G-TUBE SCH ×2 (05:03→17:23)
--- NOTE | 2016-08-23 07:29 | PD.ORT.PN ---
Subjective Post Op Day #: 4 Subjective Remarks This 76-year-old male with multiple medical problems is status post a bipolar hip arthroplasty for femoral neck fracture. The patient developed decubiti over his sacrum and hip regions and subsequently a deep infection of the hip which grew MRSA and Proteus. He also currently has C diff. He has several ulcerations of his extremity. It was elected at the initial irrigation debridement to perform a Girdlestone arthroplasty. The patient was discharged to intermediate with antibiotic therapy and presented today after being sent by the intermediate secondary to increasing drainage from the hip region. After further review of the wound it was recommended he undergo irrigation debridement with application of VAC therapy. Mr Newby is laying comfortably in bed, extubated and slightly arousable. RN admits to decrease in respiratory status over night. He is monitored by critical care team. History not obtainable at this time. Objective Vitals Vital Signs Date Time Temp Pulse Resp B/P Pulse Ox O2 Delivery O2 Flow Rate FiO2 08/23/16 06:00 84 08/23/16 04:00 82 08/23/16 04:00 97.7 82 27 136/52 97 08/23/16 03:30 96 Venturi Mask 50 08/23/16 02:00 86 08/23/16 00:00 75 08/23/16 00:00 97.9 75 24 132/49 94 08/22/16 22:00 94 08/22/16 21:54 98 Nasal Cannula 3.00 08/22/16 20:00 97.7 94 28 169/66 97 08/22/16 20:00 93 08/22/16 19:00 97 Nasal Cannula 4.00 08/22/16 18:00 96 08/22/16 16:00 97.4 91 15 158/65 99 08/22/16 16:00 91 08/22/16 14:00 62 08/22/16 12:00 98 08/22/16 12:00 97.4 98 16 156/72 100 08/22/16 10:45 96 Nasal Cannula 4.00 08/22/16 10:00 69 08/22/16 08:00 92 08/22/16 08:00 97.4 98 16 156/72 100 08/22/16 08:00 98 08/22/16 08:00 97.4 92 20 157/67 94 I/O 08/22/16 08/22/16 08/22/16 08/23/16 08/23/16 08/23/16 07:00 15:00 23:00 07:00 15:00 23:00 Intake Total 1275 ml 1148 ml 1020 ml 770 ml Output Total 225 ml 900 ml 1350 ml 375 ml Balance 1050 ml 248 ml -330 ml 395 ml IV Total 775 ml 1020 ml 450 ml 325 ml Tube Feeding 250 ml 68 ml 450 ml 325 ml Tube Irrigant 250 ml 60 ml 120 ml 120 ml Output Urine Total 175 ml 800 ml 1300 ml 325 ml Gastric Drainage Total 0 ml 0 ml Tube Feeding Residual Discard 0 ml 0 ml Drainage Total 50 ml 100 ml 50 ml 50 ml # Bowel Movements 1 1 0 Result Diagram: 08/23/16 0330 08/23/16 0330 Imaging Last 24 hours Impressions Chest X-Ray 08/18/16 546 Signed Impressions: Service Date/Time: Thursday, August 18, 2016 18:16 - CONCLUSION: 1. Bilateral lung densities greater on the left with bilateral pleural effusions. Jose A Small MD Procedures Irrigation and debridement left hip with application of wound VAC 08/19/16 Debridement left ischial decubitus with partial closure and application of wound VAC 08/19/16 Left hip resection of arthroplasty 08/03/16 Left hip bipolar arthroplasty 05/24/16 Objective Remarks LLE: Wound vac dressing is in place, mild saturation noted. Tegaderm added ontop. Surrounding erythema has significantly decreased. Slight external rotation of extremity. Neuro exam unobtainable. Good cap refill distal. Multiple decubitus and diabetic ulcers dressed and intact distally. Exposed stainless steel wire, lower sternum, covered w xeroform and sterile dressing Assessment & Plan Ortho Post Op Day #: 4 Problem List: Assessment and Plan Ortho status stable POD #4, Irrigation and debridement left hip with application of wound VAC, Debridement left ischial decubitus with partial closure and application of wound VAC Wound vac to be changed starting today, then to follow M/W/ schedule for dressing changes. Continue Lovenox for DVT prophylaxis and pain control. Initial G/S of wound is positive for Staph Jazlyn, MSRA and Nicolette. Awaiting cultures of left hip from deep surgical wound. Positive Nicolette Progress rehab as appropriate Monitored by critical care staff. Continue cardiopulm support. Continue nutritional support. Discharge pending. Mary Ellen Pike Aug 23, 2016 07:29
[2016-08-23] MEDS: CHLORHEXIDINE 0.12% (ORAL KIT) 15 ML CUP MT SCH ×3 (07:39→19:12)
[2016-08-23] MEDS: SODIUM CHLORIDE 0.9% FLUSH 5 ML FLUSH IVF SCH ×2 (07:40→20:47)
[2016-08-23] MEDS: POTASSIUM CHLORIDE 20 MEQ CONTROLLED RELEASE TAB PO SCH (07:40)
[2016-08-23] MEDS: MUPIROCIN 2% OINT 1 APPLIC/GM SYR EACH NARE SCH ×2 (08:20→20:47)
[2016-08-23] MEDS: METOPROLOL TARTRATE 25 MG TAB PO SCH ×2 (08:20→20:45)
[2016-08-23] MEDS: DILTIAZEM HCL 30 MG TAB PO SCH ×4 (08:20→20:45)
[2016-08-23] MEDS: VANCOMYCIN 500 MG VIAL (FOR ORAL USE ONLY) PO SCH ×4 (08:20→20:51)
[2016-08-23] MEDS: MULTIVITAMINS/MINERALS THERAPEUTIC TAB GT SCH (08:20)
[2016-08-23] MEDS: FAMOTIDINE 20 MG TAB PO SCH ×2 (08:20→20:45)
[2016-08-23] MEDS: DOCUSATE SODIUM 100 MG CAP PO SCH ×2 (08:20→20:47)
[2016-08-23] MEDS: NYSTATIN SUSP 500,000 U/5 ML CUP SWISH-SWAL SCH ×4 (08:21→20:48)
[2016-08-23] MEDS: ASCORBIC ACID 500 MG TAB G-TUBE SCH ×2 (08:21→20:45)
[2016-08-23] MEDS: CLOPIDOGREL 75 MG TAB PO SCH (08:21)
[2016-08-23] MEDS: DRONABINOL 5 MG CAP PO SCH ×2 (11:46→16:00)
[2016-08-23] MEDS: FLUCONAZOLE 400 MG PREMIX BAG 400 ML IV SCH ×2 (11:48→15:00)
--- NOTE | 2016-08-23 12:09 | HHI.IDPN ---
Note Infectious Disease Note Patient looks lethargic. Had worsening respiratory status overnight. Afebrile. On increased O2. Not interacting with me. PAST MEDICAL HISTORY 1. Diabetes mellitus. 2. Hypertension. 3. Alzheimer's disease. 4. Peripheral vascular disease. 5. History of CVA. 6. Coronary artery disease. 7. Coronary bypass graft surgery. 8. Left fem-pop bypass. 9. Left hip arthroplasty in May 2016. ALLERGIES No known drug allergies. Current Medications Medications (Trade) Dose Ordered Sig/[place] Route PRN Reason Start Time Stop Time Status Last Admin Dose Admin Enoxaparin Sodium (Lovenox Inj) 40 mg Q24H SQ 08/18/16 21:00 08/22/16 21:58 Naloxone HCl (Narcan Inj) 0.4 mg UNSCH PRN IV SEE LABEL COMMENTS 08/18/16 20:30 Ascorbic Acid (Vitamin C) 500 mg BID G-TUBE 08/18/16 21:00 08/23/16 08:21 Atorvastatin Calcium (Lipitor) 20 mg DAILY PO 08/19/16 09:00 Hold 08/20/16 08:15 Clopidogrel Bisulfate (Plavix) 75 mg DAILY PO 08/19/16 09:00 08/23/16 08:21 Dronabinol (Marinol) 5 mg BID@11,16 PO 08/19/16 11:00 08/23/16 11:46 Famotidine (Pepcid) 20 mg Q12HR PO 08/18/16 21:00 08/23/16 08:20 Metoprolol Tartrate (Lopressor) 25 mg Q12HR PO 08/18/16 21:00 08/23/16 08:20 Nystatin (Mycostatin Liq) 5 ml QID SWISH-SWAL 08/18/16 21:00 08/23/16 11:46 Potassium Chloride (KCl) 20 meq DAILY PO 08/19/16 09:00 08/19/16 09:13 Tamsulosin HCl (Flomax) 0.4 mg HS PO 08/18/16 21:00 08/19/16 22:13 Vancomycin HCl (VANCOMYCIN for oral use only) 125 mg QID PO 08/18/16 21:00 08/23/16 11:45 Zolpidem Tartrate (Ambien) 5 mg HS PRN PO INSOMNIA 08/18/16 20:45 08/22/16 21:57 Multivitamins/ Minerals Therapeutic (Theragran M Tab) 1 tab DAILY GT 08/19/16 09:00 08/23/16 08:20 Dextrose (D50w (Vial) Inj) 25 ml UNSCH PRN IV PUSH HYPOGLYCEMIA-SEE COMMENTS 08/19/16 06:15 Glucagon 1 mg 1 mg UNSCH PRN OTHER HYPOGLYCEMIA-SEE COMMENTS 08/19/16 06:15 Phenylephrine HCl/ Dextrose (Neosynephrine Inj/D5W 500 ml Inj) 500 ml @ 0 mls/hr TITRATE IV 08/19/16 19:15 Terbutaline Sulfate (Brethine Inj) 1 mg UNSCH PRN SQ FOR EXTRAVASATION PROTOCOL 08/19/16 19:15 IV Flush (NS Flush) 2 ml UNSCH PRN IVF FLUSH AFTER USING IV ACCESS 08/19/16 19:15 IV Flush (NS Flush) 2 ml BID IVF 08/19/16 21:00 08/23/16 07:40 Diphenhydramine HCl (Benadryl) 25 mg Q6H PRN PO ITCHING 08/19/16 19:15 Chlorhexidine Gluconate 15 ml 15 ml BID@08,20 MT 08/20/16 08:00 08/20/16 07:50 Potassium Chloride 100 ml @ 50 mls/hr Q2H PRN IV For Potassium 2.8 - 3.2 mEq/L 08/19/16 23:00 Potassium Chloride 100 ml @ 50 mls/hr Q2H PRN IV For Potassium 2.8 - 3.2 mEq/L 08/19/16 23:00 Potassium Chloride 100 ml @ 25 mls/hr UNSCH PRN IV For Potassium 3.3 - 3.5 mEq/L 08/19/16 23:00 Potassium Chloride 100 ml @ 50 mls/hr Q2H PRN IV For Potassium 3.3 - 3.5 mEq/L 08/19/16 23:00 Magnesium Sulfate/ Sodium Chloride (Magnesium Sulfate Inj/NS Inj) 100 ml @ 50 mls/hr UNSCH PRN IV For Magnesium 0.9 - 1.1 mg/dL 08/19/16 23:00 Magnesium Oxide 800 mg 800 mg UNSCH PRN PO For Magnesium 1.2 - 1.6 mg/dL 08/19/16 23:00 Magnesium Sulfate/ Sodium Chloride (Magnesium Sulfate Inj/NS Inj) 100 ml @ 50 mls/hr UNSCH PRN IV For Magnesium 1.2 - 1.6 mg/dL 08/19/16 23:00 Potassium Phosphate 2000 mg 2,000 mg Q4H PRN PO For Phosphorus < 2.5 mg/dL 08/19/16 23:00 Sodium Phosphate/ Sodium Chloride (Sodium Phosphate Inj/NS 250 ml Inj) 250 ml @ 42 mls/hr UNSCH PRN IV For Phosphorus < 2.5 mg/dL 08/19/16 23:00 Potassium Phosphate 2000 mg 2,000 mg UNSCH PRN PO/TUBE SEE LABEL COMMENTS 08/19/16 23:00 Potassium Phosphate/Sodium Chloride (Potassium Phosphate Inj/NS 250 ml Inj) 260 ml @ 42 mls/hr UNSCH PRN IV SEE LABEL COMMENTS 08/19/16 23:00 Magnesium Oxide (Mag-Ox) 400 mg BID@06,18 G-TUBE 08/20/16 18:00 08/23/16 05:03 Zinc Sulfate (Zinc Sulfate) 220 mg DAILY@06 G-TUBE 08/21/16 06:00 08/23/16 05:03 Chlorhexidine Gluconate (Peridex 0.12% Liq) 15 ml BID@08,20 MT 08/20/16 20:00 08/22/16 09:07 Mupirocin (Bactroban Nasal 2% Oint) 1 applic Taper BID EACH NARE 08/20/16 10:00 08/16/17 09:59 08/23/16 08:20 Insulin Aspart (NovoLOG SUPPLEMENTAL SCALE) 1 Q6HR SQ 08/20/16 12:00 08/23/16 07:00 Diltiazem HCl (Cardizem) 30 mg QID PO 08/20/16 10:00 08/23/16 11:46 Docusate Sodium (Colace) 100 mg BID PO 08/20/16 21:00 08/23/16 08:20 Collagenase (Santyl Oint) 1 applic UNSCH PRN TOP WOUND CARE 08/20/16 10:15 08/20/16 10:51 Povidone Iodine 1 applic 1 applic BID PRN TOPICAL WOUND CARE 08/20/16 10:15 Fluconazole/ Sodium Chloride 400 ml @ 200 mls/hr Q24H IV 08/20/16 13:00 08/23/16 11:48 Fluconazole/ Sodium Chloride 400 ml @ 200 mls/hr Q24H IV 08/20/16 15:00 08/22/16 15:01 Daptomycin 420 mg/ Sodium Chloride 100 ml @ 200 mls/hr Q24H IV 08/20/16 16:00 08/22/16 16:34 Sodium Chloride (NS 1000 ml Inj) 1,000 ml @ 125 mls/hr Q8H IV 08/20/16 18:00 Hold 08/22/16 09:08 Acetaminophen (Tylenol) 650 mg Q6H PRN PO FEVER >101F 08/21/16 16:45 Acetaminophen/ Hydrocodone Bitart (Welcome 5-325 Mg) 1 tab Q4H PRN PO PAIN SCALE 1 TO 5 08/21/16 16:45 08/22/16 21:58 Morphine Sulfate (Morphine Inj) 2 mg Q2H PRN IV PAIN SCALE 6 TO 10 08/21/16 16:45 08/22/16 10:25 Miscellaneous Information 1 Q361D XX 08/21/16 16:45 08/21/16 17:46 Chlorhexidine Gluconate (Chlorhexidine 2% Cloth) 3 pack Taper DAILY@04 TOP 08/22/16 04:00 08/18/17 03:59 Chlorhexidine Gluconate (Chlorhexidine 2% Cloth) 3 pack UNSCH PRN TOP HYGIENIC CARE 08/21/16 16:45 OBJECTIVE: Vital Signs Date Time Temp Pulse Resp B/P Pulse Ox O2 Delivery O2 Flow Rate FiO2 08/23/16 10:00 96 08/23/16 09:15 98 Nasal Cannula 4.00 08/23/16 08:34 91 Venturi Mask 50 08/23/16 08:00 97.7 92 25 147/57 94 08/23/16 08:00 92 08/23/16 07:00 91 Venturi Mask 50 08/23/16 06:00 84 08/23/16 04:00 82 08/23/16 04:00 97.7 82 27 136/52 97 08/23/16 03:30 96 Venturi Mask 50 08/23/16 02:00 86 08/23/16 00:00 75 08/23/16 00:00 97.9 75 24 132/49 94 08/22/16 22:00 94 08/22/16 21:54 98 Nasal Cannula 3.00 08/22/16 20:00 97.7 94 28 169/66 97 08/22/16 20:00 93 08/22/16 19:00 97 Nasal Cannula 4.00 08/22/16 18:00 96 08/22/16 16:00 97.4 91 15 158/65 99 08/22/16 16:00 91 08/22/16 14:00 62 08/22/16 08/22/16 08/23/16 15:00 23:00 07:00 Intake Total 1148 ml 1020 ml 770 ml Output Total 900 ml 1350 ml 375 ml Balance 248 ml -330 ml 395 ml IV Total 1020 ml 450 ml 325 ml Tube Feeding 68 ml 450 ml 325 ml Tube Irrigant 60 ml 120 ml 120 ml Output Urine Total 800 ml 1300 ml 325 ml Gastric Drainage Total 0 ml Tube Feeding Residual Discard 0 ml 0 ml Drainage Total 100 ml 50 ml 50 ml # Bowel Movements 1 0 Laboratory Tests Test 08/22/16 08/23/16 05:00 03:30 White Blood Count 20.1 TH/MM3 23.4 TH/MM3 Red Blood Count 3.71 MIL/MM3 3.48 MIL/MM3 Hemoglobin 10.3 GM/DL 9.6 GM/DL Hematocrit 31.7 % 29.5 % Mean Corpuscular Volume 85.4 FL 84.7 FL Mean Corpuscular Hemoglobin 27.8 PG 27.4 PG Mean Corpuscular Hemoglobin 32.5 % 32.4 % Concent Red Cell Distribution Width 19.7 % 19.2 % Platelet Count 282 TH/MM3 239 TH/MM3 Mean Platelet Volume 8.3 FL 8.6 FL Neutrophils (%) (Auto) 82.0 % 92.8 % Lymphocytes (%) (Auto) 11.4 % 3.1 % Monocytes (%) (Auto) 6.3 % 4.0 % Eosinophils (%) (Auto) 0.0 % 0.0 % Basophils (%) (Auto) 0.3 % 0.1 % Neutrophils # (Auto) 16.5 TH/MM3 21.7 TH/MM3 Lymphocytes # (Auto) 2.3 TH/MM3 0.7 TH/MM3 Monocytes # (Auto) 1.3 TH/MM3 0.9 TH/MM3 Eosinophils # (Auto) 0.0 TH/MM3 0.0 TH/MM3 Basophils # (Auto) 0.1 TH/MM3 0.0 TH/MM3 CBC Comment DIFF FINAL DIFF FINAL Differential Comment Laboratory Tests Test 08/22/16 08/23/16 05:00 03:30 Sodium Level 144 MEQ/L 147 MEQ/L Potassium Level 3.7 MEQ/L 3.5 MEQ/L Chloride Level 110 MEQ/L 114 MEQ/L Carbon Dioxide Level 26.6 MEQ/L 26.3 MEQ/L Anion Gap 7 MEQ/L 7 MEQ/L Blood Urea Nitrogen 13 MG/DL 12 MG/DL Creatinine 0.84 MG/DL 0.73 MG/DL Estimat Glomerular Filtration 89 ML/MIN 104 ML/MIN Rate Random Glucose 146 MG/DL 137 MG/DL Calcium Level 7.3 MG/DL 7.5 MG/DL Protein Corrected Calcium 8.3 MG/DL Phosphorus Level 2.4 MG/DL Magnesium Level 2.0 MG/DL Total Bilirubin 0.3 MG/DL Aspartate Amino Transf 23 U/L (AST/SGOT) Alanine Aminotransferase 17 U/L (ALT/SGPT) Alkaline Phosphatase 128 U/L Total Protein 5.3 GM/DL Albumin 1.9 GM/DL PHYSICAL EXAMINATION GENERAL: Lethargic. HEENT: No icterus. NECK: Supple. No swelling and no adenopathy. LUNGS: Slight rales at R. upper lung field. HEART: Regular S1, S2, without audible murmurs, rubs or gallops. ABDOMEN: Bowel sounds present but diminished. Soft, nontender. EXTREMITIES: Left hip has a vacuum apparatus exiting the left hip wound bed. This has serosanguineous drainage. The remainder of the extremities have no clubbing or cyanosis. 1+ edema. SKIN: No diffuse rash. NEUROLOGIC: Unable to fully assess. IMPRESSION 1. 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 The patient also has Nicolette in the wound culture. 2. Status post left hip arthroplasty, status post [place] arthroplasty. 3. History of C. difficile colitis. 4. Leukocytosis. WBC still elevated. RECOMMENDATIONS 1. Continue Daptomycin. 2. Continue Diflucan for Nicolette albicans. 3. Continue p.o. vancomycin for C. difficile coverage while the patient is on antibiotics and monitor his stools. 4. Follow WBC. Pablo Draper MD Aug 23, 2016 12:08
--- NOTE | 2016-08-23 12:29 | HHI.PR ---
Subjective Remarks with some respiratory distress and wheezing- now on oxygen mask. afebrile. Objective Vitals Vital Signs Date Time Temp Pulse Resp B/P Pulse Ox O2 Delivery O2 Flow Rate FiO2 08/23/16 10:00 96 08/23/16 09:15 98 Nasal Cannula 4.00 08/23/16 08:34 91 Venturi Mask 50 08/23/16 08:00 97.7 92 25 147/57 94 08/23/16 08:00 92 08/23/16 07:00 91 Venturi Mask 50 08/23/16 06:00 84 08/23/16 04:00 82 08/23/16 04:00 97.7 82 27 136/52 97 08/23/16 03:30 96 Venturi Mask 50 08/23/16 02:00 86 08/23/16 00:00 75 08/23/16 00:00 97.9 75 24 132/49 94 08/22/16 22:00 94 08/22/16 21:54 98 Nasal Cannula 3.00 08/22/16 20:00 97.7 94 28 169/66 97 08/22/16 20:00 93 08/22/16 19:00 97 Nasal Cannula 4.00 08/22/16 18:00 96 08/22/16 16:00 97.4 91 15 158/65 99 08/22/16 16:00 91 08/22/16 14:00 62 I/O 08/22/16 08/22/16 08/22/16 08/23/16 08/23/16 08/23/16 07:00 15:00 23:00 07:00 15:00 23:00 Intake Total 1275 ml 1148 ml 1020 ml 770 ml Output Total 225 ml 900 ml 1350 ml 375 ml 0 ml Balance 1050 ml 248 ml -330 ml 395 ml 0 ml IV Total 775 ml 1020 ml 450 ml 325 ml Tube Feeding 250 ml 68 ml 450 ml 325 ml Tube Irrigant 250 ml 60 ml 120 ml 120 ml Output Urine Total 175 ml 800 ml 1300 ml 325 ml Gastric Drainage Total 0 ml 0 ml Tube Feeding Residual Discard 0 ml 0 ml 0 ml Drainage Total 50 ml 100 ml 50 ml 50 ml # Bowel Movements 1 1 0 Result Diagram: 08/23/16 0330 08/23/16 0330 Imaging Last Impressions Chest X-Ray 08/22/16 0600 Signed Impressions: Service Date/Time: Monday, August 22, 2016 05:08 - CONCLUSION: Persistent right pleural effusion and diffuse infiltrates. Increasing infiltrates in the left lung. Roberto Hanley MD Renal Ultrasound 08/20/16 0000 Signed Impressions: Service Date/Time: Saturday, August 20, 2016 22:51 - CONCLUSION: 1. Symmetric renal size. No evidence of hydronephrosis. 2. Bilateral pleural effusions and abnormal appearance to the gallbladder with wall thickening and probable stone. Roberto Hanley MD Objective Remarks GENERAL: ill and cachectic looking- CARDIOVASCULAR: Regular rate and regular rhythm without murmurs, gallops, or rubs. RESPIRATORY: sounds congested with some wheezing GASTROINTESTINAL: Abdomen soft, non-tender, nondistended. Normal, active bowel sounds MUSCULOSKELETAL: Extremities without clubbing, cyanosis, or edema. NEURO: awake and alert Medications and IVs Current Medications Piperacillin Sod/ Tazobactam Sod 100 ml @ 200 mls/hr ONCE STAT IV Last administered on 08/18/16 20:30; Start 08/18/16 at 17:52; Stop 08/18/16 at 18:21; Status DC Vancomycin HCl 1000 mg/Sodium Chloride 250 ml @ 250 mls/hr ONCE STAT IV Last administered on 08/18/16 21:19; Start 08/18/16 at 17:52; Stop 08/18/16 at 18:51; Status DC Sodium Chloride 1,000 ml @ 1,000 mls/hr Q1H ONCE IV Last administered on 18:52; Start 08/18/16 at 17:52; Stop 08/18/16 at 18:51; Status DC Sodium Chloride 1,000 ml @ 1,000 mls/hr Q1H ONCE IV Last administered on 18:52; Start 08/18/16 at 17:52; Stop 08/18/16 at 18:51; Status DC Sodium Chloride 100 ml @ 1,000 mls/hr Q6M ONCE IV ; Start 08/18/16 at 17:52; Stop 08/18/16 at 17:57; Status DC Potassium Chloride (KCl 20 Meq Premix Inj) 100 ml @ 50 mls/hr Q2H IV Last administered on 08/18/16 22:14; Start 08/18/16 at 20:15; Stop 08/19/16 at 00:14; Status DC IV Flush (NS Flush) 2 ml UNSCH PRN FLUSH FLUSH AFTER USING IV ACCESS; Start 08/18/16 at 20:30; Stop 08/19/16 at 20:16; Status DC IV Flush (NS Flush) 2 ml BID FLUSH Last administered on 08/19/16 09:14; Start 08/18/16 at 21:00; Stop 08/19/16 at 20:16; Status DC Enoxaparin Sodium (Lovenox Inj) 40 mg Q24H SQ Last administered on 08/22/16 21 :58; Start 08/18/16 at 21:00 Naloxone HCl (Narcan Inj) 0.4 mg UNSCH PRN IV SEE LABEL COMMENTS; Start at 20:30 Ascorbic Acid (Vitamin C) 500 mg BID G-TUBE Last administered on 08/23/16 08: 21; Start 08/18/16 at 21:00 Atorvastatin Calcium (Lipitor) 20 mg DAILY PO Last administered on 08/20/16 08 :15; Start 08/19/16 at 09:00; Status Hold Clopidogrel Bisulfate (Plavix) 75 mg DAILY PO Last administered on 08/23/16 08 :21; Start 08/19/16 at 09:00 Diltiazem HCl (Cardizem Cd) 120 mg DAILY PO Last administered on 08/19/16 16:05 ; Start 08/19/16 at 09:00; Stop 08/20/16 at 09:14; Status DC Dronabinol (Marinol) 5 mg BID@11,16 PO Last administered on 08/23/16 11:46; Start 08/19/16 at 11:00 Famotidine (Pepcid) 20 mg Q12HR PO Last administered on 08/23/16 08:20; Start 08/18/16 at 21:00 Levofloxacin (Levaquin) 750 mg DAILY PO Last administered on 08/19/16 09:13; Start 08/19/16 at 09:00; Stop 08/20/16 at 08:31; Status DC Magnesium Oxide (Mag-Ox) 400 mg Q12HR G-TUBE Last administered on 08/20/16 08: 14; Start 08/18/16 at 21:00; Stop 08/20/16 at 08:34; Status DC Metoprolol Tartrate (Lopressor) 25 mg Q12HR PO Last administered on 08/23/16 08:20; Start 08/18/16 at 21:00 Nystatin (Mycostatin Liq) 5 ml QID SWISH-SWAL Last administered on 08/23/16 11:46; Start 08/18/16 at 21:00 Potassium Chloride (KCl) 20 meq DAILY PO Last administered on 08/19/16 09:13; Start 08/19/16 at 09:00 Tamsulosin HCl (Flomax) 0.4 mg HS PO Last administered on 08/19/16 22:13; Start 08/18/16 at 21:00 Vancomycin HCl (VANCOMYCIN for oral use only) 125 mg QID PO Last administered on 08/23/16 11:45; Start 08/18/16 at 21:00 Zinc Sulfate (Zinc Sulfate) 220 mg DAILY G-TUBE Last administered on 08/20/16 08:14; Start 08/19/16 at 09:00; Stop 08/20/16 at 08:35; Status DC Zolpidem Tartrate (Ambien) 5 mg HS PRN PO INSOMNIA Last administered on 21:57; Start 08/18/16 at 20:45 Non-Formulary Medication 15 ml DAILY G-TUBE ; Start 08/19/16 at 09:00; Status UNV Non-Formulary Medication 15 ml 15 ml CONTINUOUS PO ; Start 08/18/16 at 20:45; Status UNV Pharmacy Profile Note 0 ml @ 0 mls/hr UNSCH OTHER ; Start 08/18/16 at 20:45; Stop 08/20/16 at 12:15; Status DC Piperacillin Sod/ Tazobactam Sod (Zosyn 4.5 Gm Premix) 100 ml @ 200 mls/hr Q6H IV Last administered on 08/20/16 08:15; Start 08/19/16 at 03:00; Stop 08/20/16 at 12:16; Status DC Multivitamins/ Minerals Therapeutic 1 tab 1 tab DAILY GT Last administered on 08:20; Start 08/19/16 at 09:00 Vancomycin HCl/ Sodium Chloride (Vancomycin Inj/ NS 250 ml Inj) 262.5 ml @ 250 mls/hr Q12H IV ; Start 08/19/16 at 08:00; Status Cancel Miscellaneous Information SPECIFIC LAB TO BE DRAWN:VANCO TROUGH DATE TO BE DR... ONCE ONCE XX ; Start 08/20/16 at 07:45; Stop 08/20/16 at 07:46; Status Cancel Furosemide (Lasix Inj) 40 mg ONCE ONCE IV PUSH Last administered on 08/19/16 00:17; Start 08/19/16 at 00:00; Stop 08/19/16 at 00:01; Status DC Potassium Bicarbonate (Effer-K Eff) 50 meq ONCE ONCE GT Last administered on 00:16; Start 08/19/16 at 00:00; Stop 08/19/16 at 00:01; Status DC Dextrose (D50w (Vial) Inj) 25 ml UNSCH PRN IV PUSH HYPOGLYCEMIA-SEE COMMENTS; Start 08/19/16 at 06:15 Glucagon (Glucagon Inj) 1 mg UNSCH PRN OTHER HYPOGLYCEMIA-SEE COMMENTS; Start 08/19/16 at 06:15 Insulin Aspart 1 1 ACHS SLIDING SCALE SQ ; Start 08/19/16 at 07:00; Stop at 09:14; Status DC Vancomycin HCl/ Sodium Chloride (Vancomycin Inj/ NS 250 ml Inj) 257.5 ml @ 250 mls/hr Q24H IV Last administered on 08/19/16 22:52; Start 08/19/16 at 22:00; Stop 08/20/16 at 12:16; Status DC Miscellaneous Information SPECIFIC LAB TO BE DRAWN:VANCOMYCIN TROUGH DATE TO... ONCE ONCE XX Last administered on 08/21/16 21:45; Start 08/21/16 at 21:45; Stop 08/21/16 at 21:46; Status DC Gentamicin Sulfate (Gentamicin Inj) 240 mg STK-MED ONCE .ROUTE ; Start 08/19/16 at 14:46; Stop 08/19/16 at 14:47; Status DC Sugammadex Sodium (Bridion Inj) 200 mg STK-MED ONCE IV PUSH ; Start 08/19/16 at 16:45; Stop 08/19/16 at 16:46; Status DC Famotidine (Pepcid Inj) 20 mg STK-MED ONCE .ROUTE ; Start 08/19/16 at 16:46; Stop 08/19/16 at 16:47; Status DC Neomycin/Polymyxin (Neosporin G.u. Irr) 2 ml STK-MED ONCE IR Last administered on 08/19/16 18:00; Start 08/19/16 at 18:00; Stop 08/19/16 at 18:23; Status DC Fentanyl Citrate 250 mcg 250 mcg STK-MED ONCE .ROUTE ; Start 08/19/16 at 19:03; Stop 08/19/16 at 19:04; Status DC Phenylephrine HCl/ Dextrose (Neosynephrine Inj/D5W 500 ml Inj) 500 ml @ 0 mls/ hr TITRATE IV ; Start 08/19/16 at 19:15 Terbutaline Sulfate 1 mg 1 mg UNSCH PRN SQ FOR EXTRAVASATION PROTOCOL; Start at 19:15 Propofol (Diprivan 1000 Mg/100ml Inj) 100 ml @ 0 mls/hr TITRATE IV Last administered on 08/20/16 17:49; Start 08/19/16 at 19:15; Stop 08/21/16 at 16:35 ; Status DC Phenylephrine HCl (Neosynephrine Inj) 40 mg STK-MED ONCE .ROUTE ; Start 08/19/16 at 19:15; Stop 08/19/16 at 19:16; Status DC IV Flush (NS Flush) 2 ml UNSCH PRN IVF FLUSH AFTER USING IV ACCESS; Start at 19:15 IV Flush (NS Flush) 2 ml BID IVF Last administered on 08/23/16 07:40; Start at 21:00 Diphenhydramine HCl (Benadryl) 25 mg Q6H PRN PO ITCHING; Start 08/19/16 at 19:15 Miscellaneous Information ALL NURSING DEPARTME... UNSCH PRN XX SEE LABEL COMMENTS; Start 08/19/16 at 20:15; Stop 08/20/16 at 20:14; Status DC Miscellaneous Information ALL NURSING DEPARTME... UNSCH PRN XX SEE LABEL COMMENTS; Start 08/19/16 at 20:15; Stop 08/20/16 at 20:14; Status Cancel Chlorhexidine Gluconate 15 ml 15 ml BID@08,20 MT Last administered on 3/10/ 17at 07:50; Start 08/20/16 at 08:00 Potassium Chloride 100 ml @ 50 mls/hr Q2H PRN IV For Potassium 2.8 - 3.2 mEq/L ; Start 08/19/16 at 23:00 Potassium Chloride 100 ml @ 50 mls/hr Q2H PRN IV For Potassium 2.8 - 3.2 mEq/L ; Start 08/19/16 at 23:00 Potassium Chloride 100 ml @ 25 mls/hr UNSCH PRN IV For Potassium 3.3 - 3.5 mEq /L; Start 08/19/16 at 23:00 Potassium Chloride 100 ml @ 50 mls/hr Q2H PRN IV For Potassium 3.3 - 3.5 mEq/L ; Start 08/19/16 at 23:00 Magnesium Sulfate/ Sodium Chloride (Magnesium Sulfate Inj/NS Inj) 100 ml @ 50 mls/hr UNSCH PRN IV For Magnesium 0.9 - 1.1 mg/dL; Start 08/19/16 at 23:00 Magnesium Oxide 800 mg 800 mg UNSCH PRN PO For Magnesium 1.2 - 1.6 mg/dL; Start 08/19/16 at 23:00 Magnesium Sulfate/ Sodium Chloride (Magnesium Sulfate Inj/NS Inj) 100 ml @ 50 mls/hr UNSCH PRN IV For Magnesium 1.2 - 1.6 mg/dL; Start 08/19/16 at 23:00 Potassium Phosphate 2000 mg 2,000 mg Q4H PRN PO For Phosphorus < 2.5 mg/dL; Start 08/19/16 at 23:00 Sodium Phosphate/ Sodium Chloride (Sodium Phosphate Inj/NS 250 ml Inj) 250 ml @ 42 mls/hr UNSCH PRN IV For Phosphorus < 2.5 mg/dL; Start 08/19/16 at 23:00 Potassium Phosphate 2000 mg 2,000 mg UNSCH PRN PO/TUBE SEE LABEL COMMENTS; Start 08/19/16 at 23:00 Potassium Phosphate/Sodium Chloride (Potassium Phosphate Inj/NS 250 ml Inj) 260 ml @ 42 mls/hr UNSCH PRN IV SEE LABEL COMMENTS; Start 08/19/16 at 23:00 Levofloxacin (Levaquin) 750 mg DAILY@1000 PO Last administered on 08/20/16t 10: 50; Start 08/20/16 at 10:00; Stop 08/20/16 at 12:16; Status DC Magnesium Oxide (Mag-Ox) 400 mg BID@06,18 G-TUBE Last administered on 05:03; Start 08/20/16 at 18:00 Zinc Sulfate (Zinc Sulfate) 220 mg DAILY@06 G-TUBE Last administered on 05:03; Start 08/21/16 at 06:00 Chlorhexidine Gluconate 15 ml 15 ml BID@08,20 MT Last administered on 09:07; Start 08/20/16 at 20:00 Fentanyl Citrate 250 ml @ 0 mls/hr TITRATE IV Last administered on 08/20/16 10 :51; Start 08/20/16 at 09:00; Stop 08/21/16 at 16:35; Status DC Dexmedetomidine HCl (Precedex Inj) 50 ml @ 0 mls/hr TITRATE IV ; Start 08/20/16 at 09:00; Stop 08/21/16 at 20:09; Status DC Mupirocin (Bactroban Nasal 2% Oint) 1 applic Taper BID EACH NARE Last administered on 08/23/16 08:20; Start 08/20/16 at 10:00; Stop 08/16/17 at 09:59 Insulin Aspart (NovoLOG SUPPLEMENTAL SCALE) 1 Q6HR SQ Last administered on 08/23 07:00; Start 08/20/16 at 12:00 Diltiazem HCl (Cardizem) 30 mg QID PO Last administered on 08/23/16 11:46; Start 08/20/16 at 10:00 Docusate Sodium (Colace) 100 mg BID PO Last administered on 08/23/16 08:20; Start 08/20/16 at 21:00 Collagenase (Santyl Oint) 1 applic UNSCH PRN TOP WOUND CARE Last administered on 08/20/16 10:51; Start 08/20/16 at 10:15 Povidone Iodine 1 applic 1 applic BID PRN TOPICAL WOUND CARE; Start 08/20/16 at 10:15 Daptomycin 420 mg/ Sodium Chloride 100 ml @ 200 mls/hr Q24H IV ; Start at 14:00; Stop 08/20/16 at 15:12; Status DC Fluconazole/ Sodium Chloride (Diflucan 400 Mg Premix Bag) 400 ml @ 200 mls/hr Q24H IV Last administered on 08/23/16 11:48; Start 08/20/16 at 13:00 Albumin Human 50 gm 50 gm ONCE ONCE IV Last administered on 08/20/16 12:48; Start 08/20/16 at 12:45; Stop 08/20/16 at 12:46; Status DC Lactated Ringer's 1,000 ml @ 999 mls/hr BOLUS ONCE IV Last administered on 12:45; Start 08/20/16 at 12:45; Stop 08/20/16 at 13:45; Status DC Fluconazole/ Sodium Chloride 400 ml @ 200 mls/hr Q24H IV ; Start 08/20/16 at 13 :00; Status Cancel Fluconazole/ Sodium Chloride 400 ml @ 200 mls/hr Q24H IV Last administered on 08/22/16 15:01; Start 08/20/16 at 15:00 Daptomycin 420 mg/ Sodium Chloride 100 ml @ 200 mls/hr Q24H IV Last administered on 08/22/16 16:34; Start 08/20/16 at 16:00 Sodium Chloride 1,000 ml @ 125 mls/hr Q8H IV Last administered on 08/22/16 09 :08; Start 08/20/16 at 18:00; Status Hold Sodium Chloride 1,000 ml @ 999 mls/hr BOLUS ONCE IV Last administered on 08/20 17:24; Start 08/20/16 at 17:00; Stop 08/20/16 at 18:00; Status DC Magnesium Sulfate/ Dextrose 100 ml @ 100 mls/hr Q1H IV Last administered on 13:13; Start 08/21/16 at 10:00; Stop 08/21/16 at 12:42; Status DC Potassium Chloride 30 meq/ Sodium Chloride 115 ml @ 38.333 mls/ hr ONCE ONCE IV-CENTRAL Last administered on 08/21/16 12:45; Start 08/21/16 at 12:45; Stop 08/21/16 at 12:48; Status DC Potassium Chloride/Sodium Chloride (KCl Inj/NS Inj) 100 ml @ 33.333 mls/ hr ONCE ONCE IV-CENTRAL Last administered on 08/21/16 13:31; Start 08/21/16 at 13:00; Stop 08/21/16 at 15:59; Status DC Acetaminophen (Tylenol) 650 mg Q6H PRN PO FEVER >101F; Start 08/21/16 at 16:45 Acetaminophen/ Hydrocodone Bitart ([place] 5-325 Mg) 1 tab Q4H PRN PO PAIN SCALE 1 TO 5 Last administered on 08/22/16 21:58; Start 08/21/16 at 16:45 Morphine Sulfate (Morphine Inj) 2 mg Q2H PRN IV PAIN SCALE 6 TO 10 Last administered on 08/22/16 10:25; Start 08/21/16 at 16:45 Miscellaneous Information 1 Q361D XX Last administered on 08/21/16 17:46; Start 08/21/16 at 16:45 Chlorhexidine Gluconate (Chlorhexidine 2% Cloth) 3 pack Taper DAILY@04 TOP ; Start 08/22/16 at 04:00; Stop 08/18/17 at 03:59 Chlorhexidine Gluconate (Chlorhexidine 2% Cloth) 3 pack UNSCH PRN TOP HYGIENIC CARE; Start 08/21/16 at 16:45 Albuterol/ Ipratropium (Duoneb Neb) 1 ampule Q6HR NEB NEB Last administered on 08/23/16 08:26; Start 08/21/16 at 22:00 Albuterol/ Ipratropium (Duoneb Neb) 1 ampule Q2HR NEB PRN NEB dyspnea Last administered on 08/23/16 11:12; Start 08/21/16 at 20:15 Furosemide (Lasix Inj) 20 mg ONCE ONCE IV PUSH Last administered on 08/22/16 12:35; Start 08/22/16 at 12:15; Stop 08/22/16 at 12:16; Status DC Date of Insertion: Aug 19, 2016 Line: Central Venous Catheter Side: Left Location: Subclavian A/P Assessment and Plan A/P Postoperative respiratory failure- s/p intubation/ extubation keep on oxygen to keep O2 sat > 90% As needed bronchodilator therapy. s/p Irrigation and debridement left hip with application of wound VAC/ Debridement left ischial decubitus with partial closure and application of wound VAC Dr. Campuzano Stage III sacral decubitus ulcer Stage 2-3 bilateral heel ulcers Seen by Dr. Baptiste 07/30. Recommended Povidine/iodine and zinc oxide cover with Mepilex daily for debridement./iodine Orthophoric postop care. Continue padding for heel ulcers continue Abx per ID recommendations Coronary artery disease status post CABG 6 cardiomyopathy with EF 35% on recent echo Peripheral vascular disease -history of left femoropopliteal with angioplasty/ stenting Hypertension Dyslipidemia hold IV fluid one dose of IV lasix today Currently on Cardizem at 30 mg 4 times a day and Lopressor 25 mg twice a day for hypertension. Continue Continue Plavix 75 mg by mouth daily for peripheral vascular disease. Continue atorvastatin 20 mg by mouth daily for dyslipidemia gastro Esophageal reflux disease Status post PEG tube Severe protein calorie malnutrition on tube feeding with Glucerna 1.5 goal 50 cc an hour Pepcid for GI prophylaxis Colace/as needed Senokot for bowel regimen BPH UTI Arrieta has been placed for accurate I's and O's in critically ill patient Flomax 0.4 milliequivalents by mouth daily has been resumed Leukocytosis anemia- s/p PRBC transfusion monitor H/H periodically. History of MRSA History C. 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 albicans 08/18 - wound - MRSA/C. albicans 08/18 - blood cultures 2 - no growth 08/18 - urine - no growth Hypernatremia Hypopotassemia Hypo-magnesium Replace electrolytes as clinically indicated Dementia disorder NOS Insomnia Continue Marinol 5 mg twice a day for anorexia Acetaminophen for fever Prophylaxis - GI -Pepcid - DVT - SCD/Lovenox patient is ill-looking. will keep in ICU for close monitoring.low threshold for critical care reconsult. will consult palliative care. d/w . Vi Caraballo MD Aug 23, 2016 12:29
[2016-08-23] MEDS: FUROSEMIDE 20 MG/2 ML VIAL IV PUSH SCH ×2 (12:57→17:23)
--- NOTE | 2016-08-23 13:34 | RADRPT ---
EXAM DATE/TIME: 08/23/2016 12:40 [facility] COMPARISON: CHEST SINGLE AP, August 22, 2016, 5:08. INDICATIONS : Short of breath MEDICAL HISTORY : Hypertension. Myocardial infarction. Diabetes mellitus type II. SURGICAL HISTORY : CABG. ENCOUNTER: Subsequent ACUITY: 1 week PAIN SCORE: Non-responsive. LOCATION: Bilateral chest FINDINGS: The patient is status post sternotomy. The heart size appears grossly within normal limits. There i s a moderate to large left pleural effusion. There is a moderate right pleural effusion. There is i ncreased density in the right upper lung and in the bases bilaterally. There is some prominence of t he central pulmonary vessels. CONCLUSION: 1. Bilateral pleural effusions being greater on the left than the right. 2. Right upper lobe consolidation or atelectasis. There are also milder areas of atelectasis or con solidation at the bases bilaterally. 3. Prominence of the hilar regions likely related to prominent central pulmonary vessels and pulmona ry venous hypertension. Thor Sumner MD on August 23, 2016 at 13:27 Board Certified Radiologist. This report was verified electronically.
[2016-08-23] MEDS: MORPHINE SULFATE 4 MG/ML INJ IV PRN (13:35)
[2016-08-23] MEDS: SODIUM CHLORIDE 0.9% IV SCH (16:00)
[2016-08-23] MEDS: DAPTOMYCIN IV SCH (16:00)
[2016-08-23] MEDS ORDERED: FUROSEMIDE 20 MG/2 ML VIAL IV PUSH SCH (18:00)
[2016-08-23] MEDS: ACETAMINOPHEN/HYDROcodone 325 MG/5 MG TAB PO PRN (20:46)
[2016-08-23] MEDS: COLLAGENASE OINT 30 GM TUBE TOP PRN (20:46)
[2016-08-23] MEDS: TAMSULOSIN HCL 0.4 MG CAP PO SCH (20:47)
[2016-08-23] MEDS: ENOXAPARIN SODIUM 40 MG/0.4 ML SYRINGE SQ SCH (20:49)
[2016-08-24] VITALS (21 sets, daily range): BP systolic 124–150; BP diastolic 46–61; PULSE 70–95; RESP 14–28; TEMP 97.7–98.8; O2SAT 30–100
[2016-08-24] MEDS ORDERED: FUROSEMIDE 40 MG/4 ML VIAL IV PUSH STA (02:42)
[2016-08-24] MEDS ORDERED: FUROSEMIDE 40 MG/4 ML VIAL ONE (02:44)
[2016-08-24] MEDS ORDERED: LABETALOL HCL 100 MG/20 ML VIAL ONE (02:50)
--- NOTE | 2016-08-24 03:16 | HHI.CCPN ---
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 Decubiti have continued due to severe cachexia and deconditioning, and the left hip pocket is infected again. He has severe sepsis manifested by tachycardia, hypothermia, leukocytosis. I have met him in the [facility] immediately following surgery and he has respiratory failure associated with his sepsis; requiring mechanical ventilation. Additional immediate problems include diabetes and dementia. 08/20: Afebrile. Currently on CPAP trials 05/17 at 40%. Awake and following commands Currently being transfuse blood due to anemia postoperatively. Will check this afternoon if extubated unable after blood transfusions. Positive BM yesterday. 08/21: Afebrile. Tolerated CPAP trials overnight. Awake and follows simple commands on ventilator. No bowel movement. He was medically stable. Decreased urine output noted. CVP around 10. 08/24: Critical care reconsult : Called to evaluate patient for worsening respiratory distress. Patient was on 13 L O2 earlier. He was placed on a nonrebreather facemask despite which his O2 sats were in the mid 80s. I evaluated the patient immediately on being notified. He has a history of chronic systolic CHF and has been on Lasix 20 mg twice a day. On evaluation he did have bilateral crackles. Lasix 40 mg IV stat was ordered and patient was initiated on BiPAP with full facemask. Stat labs, CXR ordered and pending. Objective Vital Signs Date Time Temp Pulse Resp B/P Pulse Ox O2 Delivery O2 Flow Rate FiO2 08/23/16 22:00 102 08/23/16 21:00 100 Venturi Mask 50 08/23/16 20:51 15.00 08/23/16 20:00 97.7 26 152/82 Intake and Output 08/23/16 08/23/16 08/24/16 08:00 16:00 00:00 Intake Total 770 ml 694 ml 495 ml Output Total 375.0 ml 650.0 ml 2700.0 ml Balance 395.0 ml 44.0 ml -2205.0 ml Result Diagram: 08/23/16 0330 08/23/16 0330 Imaging Last Impressions Renal Ultrasound 08/20/16 0000 Signed Impressions: Service Date/Time: Saturday, August 20, 2016 22:51 - CONCLUSION: 1. Symmetric renal size. No evidence of hydronephrosis. 2. Bilateral pleural effusions and abnormal appearance to the gallbladder with wall thickening and probable stone. Roberto Hanley MD Chest X-Ray 08/19/16 0000 Signed Impressions: Service Date/Time: August 19:33 - CONCLUSION: 1. Endotracheal tube and left subclavian central venous catheter positioned as above. 2. Mild bibasilar consolidation and small effusions not significantly changed. Thor Donahue MD Objective Remarks GENERAL: 76-year-old male, critically ill currently resting in bed, on BiPAP with full facemask SKIN: Bilateral heel ulcers, stage III sacral decubitus ulcer, left hips currently covered. Once a wound over mid sternum noted. PEG tube is clean dry and intact. HEAD: Atraumatic. Normocephalic. EYES: Pupils equal and round about 4 mm bilaterally and reactive. No scleral icterus. No injection or drainage. ENT: No nasal bleeding or discharge. Mucous membranes pink and moist. NECK: Trachea midline. No JVD. CARDIOVASCULAR: Regular rate and rhythm. S1, S2. No S4. RESPIRATORY: Air entry decreased bilaterally at bases, bilateral crackles. On BiPAP with full facemask GASTROINTESTINAL: Abdomen soft, non-tender, nondistended. PEG tube site is clean dry and intact.. MUSCULOSKELETAL: Extremities as above per scan. Noted skin breakdown sacrum/ heel/left hip NEUROLOGICAL: Awake and alert. No obvious cranial nerve deficits. Moving all 4 extremities spontaneously. Date of Insertion: Aug 19, 2016 Line: Central Venous Catheter Side: Left Location: Subclavian A/P Problem List: (1) Sepsis ICD Code: A41.9 Status: Acute (2) Type 2 diabetes mellitus ICD Code: E11.9 Status: Chronic (3) Leukocytosis ICD Code: D72.829 Status: Acute (4) Left hip prosthetic joint infection ICD Code: T84.52XA Status: Acute (5) Chronic systolic CHF (congestive heart failure) ICD Code: I50.22 Status: Chronic Assessment and Plan Neuro/Psych: Dementia disorder NOS Insomnia Follow neuro status. Currently holding Ambien 5 milligrams at night for insomnia. Continue Marinol 5 mg twice a day for anorexia Acetaminophen for fever CV: Coronary artery disease status post CABG 6 Peripheral vascular disease -history of left femoropopliteal with angioplasty/ stenting Acute on chronic systolic CHF Hypertension Dyslipidemia KVO IV fluids. Lasix 40 mg IV stat to diurese in view of worsening respiratory status.. On Lasix 20 mg IV twice a day, CVP bleeding 2-4 Currently on Cardizem at 30 mg 4 times a day and Lopressor 25 mg twice a day for hypertension. Labetalol 10 mg IV stat for systolic blood pressure in the 140s. Continue Plavix 75 mg by mouth daily for peripheral vascular disease. Continue atorvastatin 20 mg by mouth daily for dyslipidemia Resp: Postoperative respiratory failure Patient placed on BiPAP with full facemask. Follow-up stat chest x-ray. Being diuresed with Lasix. May require endotracheal intubation and mechanical ventilation. Continue bronchodilators. Follow up ABG 1 hour after placing on BiPAP. GI: gAstro Esophageal reflux disease Status post PEG tube Severe protein calorie malnutrition On tube feeding with Glucerna 1.5 goal 50 cc an hour via PEG. Pepcid for GI prophylaxis Colace/as needed Senokot for bowel regimen : BPH UTI Arrieta for accurate I's and O's in critically ill patient Flomax 0.4 milliequivalents by mouth daily has been resumed Endo: Sliding scale insulin Accu-Cheks to maintain euglycemia. Low regimen Renal: Diurese with Lasix. Strict intake output, monitor and replete electro lites, follow BUN/creatinine. Heme: Leukocytosis ABL anemia Follow CBC, transfuse to keep hemoglobin greater than 8 g percent ID: History of MRSA History C. difficile Recent history of Proteus hardware infection on Levaquin 6 weeks Currently on vancomycin 125 mg 4 times a day for C. difficile. To be continued until 2 weeks after Levaquin discontinued Continue IV daptomycin for 420 IV daily per ID Medication Diflucan for mill grams IV daily added 08/20 by ID Pertinent cultures 08/19 - hip -C. albicans 08/18 - wound - MRSA/C. albicans 08/18 - blood cultures 2 - no growth 08/18 - urine - no growth ID consultation for antibiotic management FEN: Hypernatremia Hypopotassemia Hypo-magnesium Replace electrolytes as clinically indicated MSK: Postop day #5 Irrigation and debridement left hip with application of wound VAC /Debridement left ischial decubitus with partial closure and application of wound VAC Dr. Campuzano Stage III sacral decubitus ulcer Stage 2-3 bilateral heel ulcers Seen by Dr. Baptiste 07/30. Recommended Povidine/iodine and zinc oxide cover with Mepilex daily for debridement./iodine Orthophoric postop care. Continue padding for heel ulcers Access - Left subclavian CVL day #6 placed in OR on 08/19 Prophylaxis - GI -Pepcid - DVT - SCD/Lovenox Follow-up stat labs, IV GM chest x-ray. Critical Care: The total care time was 35 minutes. Time to perform other separately billable procedures was not included in the critical care time. Problem Qualifiers (1) Type 2 diabetes mellitus: (2) Leukocytosis: Qualified Code: D72.829 - Leukocytosis, unspecified type Franc Snowden MD Aug 24, 2016 03:16
[2016-08-24 03:40] LABS: BLOOD GAS BASE EXCESS 3.7 mmol/L (-2-2); BLOOD GAS CARBOXYHEMOGLOBIN 1.3 % (0-4); BLOOD GAS HCO3 27 mmol/L (22-26); BLOOD GAS METHEMOGLOBIN 0.6 % (0-2); BLOOD GAS O2 HGB SATURATION 93 % (90-100); BLOOD GAS PCO2 39 mmHg (38-42); BLOOD GAS PO2 68 mmHg (61-120); CRITICAL VALUE NO; FIO2 50 %; OXYGEN DEVICE BiPAP; TEMP CORR TO 98.6; VENT SETTINGS IPAP15/EPAP5
[2016-08-24 03:41] LABS: DRAW SITE ART LINE; STAT NO
[2016-08-24 03:54] LABS: AUTOMATED NEUTROPHIL # 22.2 TH/MM3 (1.8-7.7); BASOPHIL % 0.1 % (0.0-2.0); HEMATOCRIT 29.2 % (39.0-51.0); LYMPH % 1.6 % (9.0-44.0); LYMPHOCYTE # 0.4 TH/MM3 (1.0-4.8); MEAN CELL VOLUME 84.7 FL (80.0-100.0); MEAN CORPUSCULAR HEMOGLOBIN 28.5 PG (27.0-34.0); MEAN CORPUSCULAR HGB CONC 33.6 % (32.0-36.0); NEUT % 95.3 % (16.0-70.0); PLATELET COUNT 251 TH/MM3 (150-450); RED BLOOD COUNT 3.45 MIL/MM3 (4.50-5.90); RED CELL DISTRIBUTION WIDTH 19.2 % (11.6-17.2); WHITE BLOOD COUNT 23.3 TH/MM3 (4.0-11.0)
[2016-08-24 03:55] LABS: HEMO FLAGS AUTO DIFF
[2016-08-24] MEDS: CHLORHEXIDINE GLUCONATE 2 % 1 PACK (2 CLOTHS) TOP SCH (04:00)
[2016-08-24] MEDS: RESP: ALBUTEROL 2.5 MG/IPRATROPIUM 0.5 MG NEB (SCH) NEB ×6 (04:07→23:50)
[2016-08-24 04:21] LABS: ALT (GPT) 13 U/L (12-78); ANION GAP 10 MEQ/L (5-15); AST (GOT) 14 U/L (15-37); BICARBONATE 29.1 MEQ/L (21.0-32.0); BLOOD UREA NITROGEN 16 MG/DL (7-18); CHLORIDE 112 MEQ/L (98-107); GLOMERULAR FILTRATION RATE 99 ML/MIN (>89); MAGNESIUM 1.7 MG/DL (1.5-2.5); POTASSIUM 3.5 MEQ/L (3.5-5.1); SODIUM (NA) 151 MEQ/L (136-145)
[2016-08-24 04:25] LABS: ALKALINE PHOSPHATASE 96 U/L (45-117); TOTAL BILIRUBIN ADULT 0.3 MG/DL (0.2-1.0)
[2016-08-24 04:30] LABS: PLATELET ESTIMATE SMEAR NORMAL (NORMAL); PLATELET MORPHOLOGY NORMAL (NORMAL); SCAN/DIFF AUTO DIFF CONFIRMED
[2016-08-24 04:34] LABS: CREATINE KINASE 58 U/L (39-308)
--- NOTE | 2016-08-24 04:44 | RADRPT ---
EXAM DATE/TIME: 08/24/2016 02:54 [place] COMPARISON: CHEST SINGLE AP, August 23, 2016, 12:40. INDICATIONS : Shortness of breath. MEDICAL HISTORY : Hypertension. Myocardial infarction. Diabetes mellitus type II. SURGICAL HISTORY : CABG. ENCOUNTER: Subsequent ACUITY: 1 week PAIN SCORE: Non-responsive. LOCATION: Bilateral chest FINDINGS: Single AP view of the chest. Left subclavian central venous catheter remains in place. Median sternot gilbert wires. Bilateral pulmonary parenchymal opacity right greater than left unchanged. Bilateral pleur al effusions unchanged. Cardiomediastinal silhouette unchanged. CONCLUSION: No significant old change with persistent prominent bilateral right greater than left pulmonary paren chymal opacity and bilateral pleural effusions. Ajay Kendall MD on August 24, 2016 at 4:40 Board Certified Radiologist. This report was verified electronically.
[2016-08-24] MEDS: MAGNESIUM OXIDE 400 MG TAB G-TUBE SCH ×2 (05:01→17:07)
[2016-08-24] MEDS: ZINC SULFATE 220 MG CAP G-TUBE SCH (05:01)
[2016-08-24] MEDS: INSULIN ASPART SUPPLEMENTAL SCALE SQ SCH ×4 (05:34→18:03)
[2016-08-24] MEDS: CHLORHEXIDINE 0.12% (ORAL KIT) 15 ML CUP MT SCH ×2 (07:33→20:00)
[2016-08-24] MEDS: SODIUM CHLORIDE 0.9% FLUSH 5 ML FLUSH IVF SCH ×2 (07:33→22:17)
[2016-08-24] MEDS: POTASSIUM CHLORIDE 20 MEQ CONTROLLED RELEASE TAB PO SCH (07:34)
[2016-08-24] MEDS: CLOPIDOGREL 75 MG TAB PO SCH (08:18)
[2016-08-24] MEDS: MULTIVITAMINS/MINERALS THERAPEUTIC TAB GT SCH (08:18)
[2016-08-24] MEDS: METOPROLOL TARTRATE 25 MG TAB PO SCH ×2 (08:18→22:16)
[2016-08-24] MEDS: ASCORBIC ACID 500 MG TAB G-TUBE SCH ×2 (08:18→22:16)
[2016-08-24] MEDS: FAMOTIDINE 20 MG TAB PO SCH ×2 (08:19→22:16)
[2016-08-24] MEDS: DILTIAZEM HCL 30 MG TAB PO SCH ×4 (08:19→22:16)
[2016-08-24] MEDS: DOCUSATE SODIUM 100 MG CAP PO SCH ×2 (08:19→22:18)
[2016-08-24] MEDS: MUPIROCIN 2% OINT 1 APPLIC/GM SYR EACH NARE SCH ×2 (08:19→22:15)
[2016-08-24] MEDS: FUROSEMIDE 20 MG/2 ML VIAL IV PUSH SCH ×2 (08:19→17:07)
[2016-08-24] MEDS: NYSTATIN SUSP 500,000 U/5 ML CUP SWISH-SWAL SCH ×4 (08:19→22:18)
[2016-08-24] MEDS: VANCOMYCIN 500 MG VIAL (FOR ORAL USE ONLY) PO SCH ×4 (08:19→22:17)
--- NOTE | 2016-08-24 10:00 | PD.CONS ---
Consult Service Palliative Care . Consult Requested By Dr. Caraballo . Primary Care Physician Kimberly Branch MD . Reason for Consultation a. To assist with evaluation and management of symptoms including: pain, confusion, dyspnea b. To assist medical decision maker(s) with: better understanding of current medical conditions; weighing benefits/burdens of medical treatment options; making medical treatment decisions. . HPI History of Present Illness Mr. Torres is a 76 year old male who was transported to [facility] on 08/18/16 via EMS for evaluation of postoperative wound infection of the left hip. Patient sustained a left hip fracture after a fall with surgical repair on 05/24/16. Patient was rehospitalized from 07/12/2016 to 08/12/2016 with infected wound of left hip which grew MRSA and Proteus. Patient had a left hip resection arthroplasty. Infection of the hip and was started on IV antibiotics. While hospitalized the patient developed diarrhea, C. difficile positive, started on vancomycin. Patient was discharged to a senior living facility with PICC line on IV antibiotics. While at the SNF, silly staff noted yellow drainage coming from the postoperative incisional site, and the patient was referred to the ED for evaluation. Patient's past medical history includes hypertension, CAD s/p CABG, h/o CVA, DM, PVD, Alzheimer's, hyperlipidemia, diabetes and CHF , Additional diagnostic findings in the ED: * Vital signs: Pulse 87, respirations 18, BP 152/81, oxygen saturation 93% on room air, rectal temperature 98.8 * WBC: 15.4, hemoglobin 7.2, hematocrit 22.5, platelets 285, neutrophils 87.9% * Sodium: 143, potassium 3.0, chloride 107, carbon dioxide 29.7, glucose 122, calcium 7.6 * BUN: 8, creatinine 0.73, GFR 104 * Lactic acid: 0.9 * Total bilirubin: 0.4, AST 24, ALT 16, alkaline phosphatase 140 * Total protein: 5.2, albumin 1.5 * Urinalysis: +protein, occult blood, mod. leukocyte esterase, WBC, calcium oxalate crystals, bacteria and mucus. - Culture indicated * Nasal screen: + MRSA * Wound culture/hip: + Brit and Nicolette albicans * Blood culture: No growth in 5 days * Urine culture: No growth in 48 hours * Chest x-ray: Bilateral lung densities greater on the left with bilateral pleural effusions. Patient was started on IV fluids and antibiotics per sepsis protocol. Admitted for further evaluation and medical management. Orthopedics was consulted. After evaluating the wound, recommendations were made that the patient undergo irrigation and debridement of the left hip with application of a wound VAC. Also, debridement of left ischial cubitus with partial closure and application of wound VAC. Follow-up woundhip culture growing Nicolette albicans, mycobacterial culture pending. After going to the OR, the patient transferred to [facility] secondary to severe sepsis and respiratory failure. Patient was critically ill, ventilator dependent , requiring ongoing resuscitation overnight. Patient remains afebrile on 08/20/16. WBC increased to 21.3. Patient tolerating CPAP trials 12/5, FiO2 40%. Awake and able to follow some commands. Received 2 units of leukocyte reduced RBCs for hemoglobin of 6.7 and hematocrit of 20.7. Infectious disease following. Patient remains on Daptomycin, Diflucan (for Nicolette albicans) and PO vancomycin for C. difficile coverage while receiving IV antibiotics. Patient extubated 08/21/16. Follow-up chest x-ray showing increasing consolidation in the left lower lung and new opacities in the right lower lung suggesting infiltrate, effusion, or combination of both. Patient developed worsening respiratory distress and critical care was reconsulted on 08/25/15. Oxygen saturations in the mid 80s on non-rebreather face mask. He has a history of CHF, on furosemide 20 mg twice a day. On exam patient was noted to have a close bilaterally. Administered furosemide 40 mg IV stat, and patient was placed on BiPAP. Stat chest x-ray showed no significant old change with persistent prominent bilateral right greater than left pulmonary parenchymal opacity with bilateral pleural effusions. Stat lab work ordered: = WBC: 23.4, hemoglobin 9.8, hematocrit 29.2, platelets 251, neutrophils 95.3% = Sodium: 151, potassium 3.5, chloride 112, carbon dioxide 29.1, glucose 183, calcium 7.8, phosphorus 2.3, magnesium 1.7 = BUN 16, creatinine 0.76, GFR 99 = Total bilirubin: 0.3, AST 14, ALT 13, alkaline phosphatase 96 = Total creatine kinase: 58 = Troponin: 0.05 = BNP: 4045 = Total protein 5.1, albumin 1.5 = EKG: Sinus rhythm, possible inferior infarctage undetermined, possible anterior infarctage undetermined, lateral STT changes may be due to myocardial ischemia. Palliative Care was consulted to assist with symptom management and to discuss with the patient/family the benefits and burdens of his current illnesses and the options regarding future care. . Function/Cognitive Trajectory Mr. Newby is a 76-year-old man with complex medical history who has been hospitalized 3 times since April, after a fall in which he sustain a left hip fracture. The patient was rehospitalized from 07/12/16-08/12/16 and now readmitted on 08/18/16 with recurrent postoperative wound infections. Patient was transferred to a SNF for rehabilitation after each admission, however patient is now primarily bedbound. Patient has become increasingly confused and disoriented. Patient's nutritional intake is poor with multiple non- healing wounds/recurrent infections. Patient appears cachectic with muscle wasting noted s/p PEG tube placement on 08/10/16. Started on Marinol during last admission. Patient has had an approximate weight loss of 14 pounds in the past year. Recent albumin of 1.5. . Review of Systems ROS Limitations: Clinical Condition (On NRB 07/15 dyspnea.), Altered Mental Status Past Family Social History Coded Allergies: [place] Cheese (Verified Allergy, Unknown, 08/18/16) *MDRO Multi-Drug Resistant Organism (Verified Adverse Reaction, Unknown, MRSA, 08/20/16) MRSA (hip) - 07/12/16 & 08/18/16 MRSA PCR Screen POSITIVE - 08/20/2016 Past Medical History Hypertension Coronary artery disease s/p CABG History of CVA with no residual deficits Diabetes mellitus Peripheral vascular disease with left lower extremity angioplasty due to left lower extremity gangrene Alzheimer's Hyperlipidemia BPH CHF Renal insufficiency . Past Surgical History Left bipolar hip arthroplasty Dr. Campuzano 05/24/16 Left femoropopliteal bypass with endarterectomy CABG . Reported Medications Vancomycin Inj (Vancomycin HCl) 750 Mg Inj 750 Mg IV DAILY Glucerna 1.5 Angelo (Nutritional Supplements) 1 Liq Liq 15 Ml PO CONTINUOUS Vitamin C (Ascorbic Acid) 500 Mg Tab 500 Mg G-TUBE BID Zinc Sulfate 220 Mg Tab 220 Mg G-TUBE DAILY Multivitamin Liq (Multiple Vitamins W/ Minerals Liq) 1 Liq Liq 15 Ml G-TUBE DAILY Flomax (Tamsulosin HCl) 0.4 Mg Cap 0.4 Mg PO HS Clopidogrel (Clopidogrel Bisulfate) 75 Mg Tab 75 Mg PO DAILY Atorvastatin (Atorvastatin Calcium) 20 Mg Tab 20 Mg PO DAILY . Current Medications Medications (Trade) Dose Ordered Sig/[place] Route Start Time Stop Time Status Last Admin (Lovenox Inj) 40 mg Q24H SQ 08/18/16 21:00 08/23/16 20:49 (Narcan Inj) 0.4 mg UNSCH PRN IV 08/18/16 20:30 (Vitamin C) 500 mg BID G-TUBE 08/18/16 21:00 08/24/16 08:18 (Lipitor) 20 mg DAILY PO 08/19/16 09:00 Hold 08/20/16 08:15 (Plavix) 75 mg DAILY PO 08/19/16 09:00 08/24/16 08:18 (Marinol) 5 mg BID@11,16 PO 08/19/16 11:00 08/23/16 16:00 (Pepcid) 20 mg Q12HR PO 08/18/16 21:00 08/24/16 08:19 (Lopressor) 25 mg Q12HR PO 08/18/16 21:00 08/24/16 08:18 (Mycostatin Liq) 5 ml QID SWISH-SWAL 08/18/16 21:00 08/24/16 08:19 (KCl) 20 meq DAILY PO 08/19/16 09:00 08/19/16 09:13 (Flomax) 0.4 mg HS PO 08/18/16 21:00 08/19/16 22:13 (VANCOMYCIN for oral use only) 125 mg QID PO 08/18/16 21:00 08/24/16 08:19 (Ambien) 5 mg HS PRN PO 08/18/16 20:45 08/22/16 21:57 (Theragran M Tab) 1 tab DAILY GT 08/19/16 09:00 08/24/16 08:18 (D50w (Vial) Inj) 25 ml UNSCH PRN IV PUSH 08/19/16 06:15 Glucagon 1 mg 1 mg UNSCH PRN OTHER 08/19/16 06:15 (Neosynephrine Inj/D5W 500 ml Inj) 500 ml @ 0 mls/hr TITRATE IV 08/19/16 19:15 (Brethine Inj) 1 mg UNSCH PRN SQ 08/19/16 19:15 (NS Flush) 2 ml UNSCH PRN IVF 08/19/16 19:15 (NS Flush) 2 ml BID IVF 08/19/16 21:00 08/24/16 07:33 Diphenhydramine HCl 25 mg 25 mg Q6H PRN PO 08/19/16 19:15 Potassium Chloride 100 ml @ 50 mls/hr Q2H PRN IV 08/19/16 23:00 Potassium Chloride 100 ml @ 50 mls/hr Q2H PRN IV 08/19/16 23:00 Potassium Chloride 100 ml @ 25 mls/hr UNSCH PRN IV 08/19/16 23:00 Potassium Chloride 100 ml @ 50 mls/hr Q2H PRN IV 08/19/16 23:00 (Magnesium Sulfate Inj/NS Inj) 100 ml @ 50 mls/hr UNSCH PRN IV 08/19/16 23:00 Magnesium Oxide 800 mg 800 mg UNSCH PRN PO 08/19/16 23:00 (Magnesium Sulfate Inj/NS Inj) 100 ml @ 50 mls/hr UNSCH PRN IV 08/19/16 23:00 Potassium Phosphate 2000 mg 2,000 mg Q4H PRN PO 08/19/16 23:00 (Sodium Phosphate Inj/NS 250 ml Inj) 250 ml @ 42 mls/hr UNSCH PRN IV 08/19/16 23:00 Potassium Phosphate 2000 mg 2,000 mg UNSCH PRN PO/TUBE 08/19/16 23:00 (Potassium Phosphate Inj/NS 250 ml Inj) 260 ml @ 42 mls/hr UNSCH PRN IV 08/19/16 23:00 08/24/16 04:46 (Mag-Ox) 400 mg BID@06,18 G-TUBE 08/20/16 18:00 08/24/16 05:01 (Zinc Sulfate) 220 mg DAILY@06 G-TUBE 08/21/16 06:00 08/24/16 05:01 (Peridex 0.12% Liq) 15 ml BID@08,20 MT 08/20/16 20:00 08/22/16 09:07 (Bactroban Nasal 2% Oint) 1 applic Taper BID EACH NARE 08/20/16 10:00 08/16/17 09:59 08/24/16 08:19 (NovoLOG SUPPLEMENTAL SCALE) 1 Q6HR SQ 08/20/16 12:00 08/24/16 05:34 (Cardizem) 30 mg QID PO 08/20/16 10:00 08/24/16 08:19 (Colace) 100 mg BID PO 08/20/16 21:00 08/24/16 08:19 (Santyl Oint) 1 applic UNSCH PRN TOP 08/20/16 10:15 08/23/16 20:46 Povidone Iodine 1 applic 1 applic BID PRN TOPICAL 08/20/16 10:15 Fluconazole/ Sodium Chloride 400 ml @ 200 mls/hr Q24H IV 08/20/16 13:00 08/23/16 11:48 Fluconazole/ Sodium Chloride 400 ml @ 200 mls/hr Q24H IV 08/20/16 15:00 08/23/16 15:00 Daptomycin 420 mg/ Sodium Chloride 100 ml @ 200 mls/hr Q24H IV 08/20/16 16:00 08/23/16 16:00 (NS 1000 ml Inj) 1,000 ml @ 125 mls/hr Q8H IV 08/20/16 18:00 Hold 08/22/16 09:08 (Tylenol) 650 mg Q6H PRN PO 08/21/16 16:45 (Kistler 5-325 Mg) 1 tab Q4H PRN PO 08/21/16 16:45 08/23/16 20:46 (Morphine Inj) 2 mg Q2H PRN IV 08/21/16 16:45 08/23/16 13:35 Miscellaneous Information 1 Q361D XX 08/21/16 16:45 08/21/16 17:46 (Chlorhexidine 2% Cloth) 3 pack Taper DAILY@04 TOP 08/22/16 04:00 08/18/17 03:59 (Chlorhexidine 2% Cloth) 3 pack UNSCH PRN TOP 08/21/16 16:45 (Lasix Inj) 20 mg BID@18 IV PUSH 08/23/16 13:00 08/24/16 08:19 Family History Patient's states she does not know patient's familial medical history. Patient is confused, poor historian. . Substance Use Tobacco: None known Alcohol: None known Prescription med abuse: None known Illicits: None known Psychosocial History Patient is originally from [place]. 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 They have no children together. Per , patient has a daughter with whom he is estranged. . Spiritual/Cultural Factors Hinduism gabe, attends [employer]. . Health Care Surrogate(s): Not applicable . Documented care wishes: No documented care wishes have been completed. . Today's verbally stated goals: Patient is currently not capacitated to participate in this interesting medical treatment goals. Given the patient's critical condition and recent acute decline , it is unclear if he will regain this capacity. . Family/friends goals: Goals remain aggressive at point of cardiopulmonary resuscitation. . Ethical and Legal Issues Per [place] statutes, in the absence of written advanced directives healthcare proxy decision making falls to the patient's (Regina Newby). . Physical Exam Vital Signs Date Time Temp Pulse Resp B/P Pulse Ox O2 Delivery O2 Flow Rate FiO2 08/24/16 08:00 97.7 73 14 149/59 100 08/24/16 08:00 73 08/24/16 07:58 99 40 08/24/16 07:00 100 Bi-Pap 50 08/24/16 06:00 76 08/24/16 04:08 100 40 08/24/16 04:03 97 40 08/24/16 04:00 76 08/24/16 04:00 98.8 76 28 124/46 100 08/24/16 02:45 97 50 08/24/16 02:35 99 Bi-Pap 50 08/24/16 02:00 90 08/24/16 00:00 97.8 90 26 138/54 100 08/24/16 00:00 90 08/23/16 22:00 102 08/23/16 21:00 100 Venturi Mask 50 08/23/16 20:51 92 Partial Rebreather 15.00 08/23/16 20:00 96 08/23/16 20:00 97.7 96 26 152/82 97 08/23/16 19:00 96 Nasal Cannula 4.00 08/23/16 18:00 98 08/23/16 16:00 97.7 94 26 163/60 97 08/23/16 16:00 94 08/23/16 14:00 92 08/23/16 13:00 98 Nasal Cannula 4.00 08/23/16 12:00 97.7 97 19 159/72 99 08/23/16 12:00 97 08/23/16 11:30 91 Venturi Mask 50 08/23/16 10:00 96 . 08/23/16 08/24/16 19:00 07:00 Intake Total 694 ml 1015 ml Output Total 650.0 ml 3425.0 ml Balance 44.0 ml -2410.0 ml IV Total 274 ml 175 ml Tube Feeding 360 ml 600 ml Tube Irrigant 60 ml 240 ml Output Urine Total 550 ml 2825 ml Stool Total 250 ml Gastric Drainage Total 0 ml Tube Feeding Residual Discard 0 ml 250.0 ml Drainage Total 100 ml 100 ml # Bowel Movements 3 . Exam CONSTITUTIONAL/GENERAL: This is a cachectic, elderly male patient in moderate respiratory distress. TUBES/LINES/DRAINS: NRB, Right subclavian central line, art line, rectal tube, Arrieta catheter, soft restraints, PEG tube, wound VAC SKIN: . Ecchymoses on upper extremities. Multiple nonhealing wounds. Skin temperature appropriate. Not diaphoretic. HEAD: Atraumatic. Normocephalic. EYES: Pupils equal and round and reactive.No scleral icterus. No injection or drainage. Fundi not examined. ENT: Hearing grossly normal. Nose without bleeding or purulent drainage. NECK: Trachea midline. Supple, nontender. No palpable thyroid enlargement or nodularity. CARDIOVASCULAR: Regular rate and rhythm without murmurs, gallops, or rubs. No JVD. Peripheral pulses symmetric. RESPIRATORY/CHEST: On nonrebreather. Breath sounds diminished, crackles bilaterally. GASTROINTESTINAL: Abdomen soft, non-tender, nondistended. PEG tube site C/D/I. GENITOURINARY: Without palpable bladder distension. Arrieta catheter in place. MUSCULOSKELETAL: Extremities without clubbing, cyanosis, or edema. Multiple areas of skin breakdown noted. LYMPHATICS: No palpable cervical or supraclavicular adenopathy. NEUROLOGICAL: Patient is awake, confused. Soft restraints in place so patient does not remove NRB mask, disrupt care. Moving all extremities spontaneously. PSYCHIATRIC: Disoriented, confused. . Diagnostic Tests Laboratory Laboratory Tests Test 08/21/16 08/22/16 08/23/16 08/24/16 21:45 05:00 03:30 03:29 Vancomycin Level Trough 14.9 MCG/ML (5.0-10.0) White Blood Count 20.1 TH/MM3 23.4 TH/MM3 (4.0-11.0) (4.0-11.0) Red Blood Count 3.71 MIL/MM3 3.48 MIL/MM3 (4.50-5.90) (4.50-5.90) Hemoglobin 10.3 GM/DL 9.6 GM/DL (13.0-17.0) (13.0-17.0) Hematocrit 31.7 % 29.5 % (39.0-51.0) (39.0-51.0) Mean Corpuscular Volume 85.4 FL 84.7 FL (80.0-100.0) (80.0-100.0) Mean Corpuscular Hemoglobin 27.8 PG 27.4 PG (27.0-34.0) (27.0-34.0) Mean Corpuscular Hemoglobin 32.5 % 32.4 % Concent (32.0-36.0) (32.0-36.0) Red Cell Distribution Width 19.7 % 19.2 % (11.6-17.2) (11.6-17.2) Platelet Count 282 TH/MM3 239 TH/MM3 (150-450) (150-450) Mean Platelet Volume 8.3 FL 8.6 FL (7.0-11.0) (7.0-11.0) Neutrophils (%) (Auto) 82.0 % 92.8 % (16.0-70.0) (16.0-70.0) Lymphocytes (%) (Auto) 11.4 % 3.1 % (9.0-44.0) (9.0-44.0) Monocytes (%) (Auto) 6.3 % (0.0-8.0) 4.0 % (0.0-8.0) Eosinophils (%) (Auto) 0.0 % (0.0-4.0) 0.0 % (0.0-4.0) Basophils (%) (Auto) 0.3 % (0.0-2.0) 0.1 % (0.0-2.0) Neutrophils # (Auto) 16.5 TH/MM3 21.7 TH/MM3 (1.8-7.7) (1.8-7.7) Lymphocytes # (Auto) 2.3 TH/MM3 0.7 TH/MM3 (1.0-4.8) (1.0-4.8) Monocytes # (Auto) 1.3 TH/MM3 0.9 TH/MM3 (0-0.9) (0-0.9) Eosinophils # (Auto) 0.0 TH/MM3 0.0 TH/MM3 (0-0.4) (0-0.4) Basophils # (Auto) 0.1 TH/MM3 0.0 TH/MM3 (0-0.2) (0-0.2) CBC Comment DIFF FINAL DIFF FINAL Differential Comment Sodium Level 144 MEQ/L 147 MEQ/L (136-145) (136-145) Potassium Level 3.7 MEQ/L 3.5 MEQ/L (3.5-5.1) (3.5-5.1) Chloride Level 110 MEQ/L 114 MEQ/L (98-107) (98-107) Carbon Dioxide Level 26.6 MEQ/L 26.3 MEQ/L (21.0-32.0) (21.0-32.0) Anion Gap 7 MEQ/L (5-15) 7 MEQ/L (5-15) Blood Urea Nitrogen 13 MG/DL (7-18) 12 MG/DL (7-18) Creatinine 0.84 MG/DL 0.73 MG/DL (0.60-1.30) (0.60-1.30) Estimat Glomerular Filtration 89 ML/MIN (>89) 104 ML/MIN Rate (>89) Random Glucose 146 MG/DL 137 MG/DL (74-106) (74-106) Calcium Level 7.3 MG/DL 7.5 MG/DL (8.5-10.1) (8.5-10.1) Protein Corrected Calcium 8.3 MG/DL (8.5-10.1) Phosphorus Level 2.4 MG/DL (2.5-4.9) Magnesium Level 2.0 MG/DL (1.5-2.5) Total Bilirubin 0.3 MG/DL (0.2-1.0) Aspartate Amino Transf 23 U/L (15-37) (AST/SGOT) Alanine Aminotransferase 17 U/L (12-78) (ALT/SGPT) Alkaline Phosphatase 128 U/L (45-117) Total Protein 5.3 GM/DL (6.4-8.2) Albumin 1.9 GM/DL (3.4-5.0) Blood Gas Puncture Site ART LINE Blood Gas Patient Temperature 98.6 Blood Gas HCO3 27 mmol/L (22-26) Blood Gas Base Excess 3.7 mmol/L (-2-2) Blood Gas Oxygen Saturation 93 % (90-100) Arterial Blood pH 7.46 (7.380-7.420) Arterial Blood Partial 39 mmHg (38-42) Pressure CO2 Arterial Blood Partial 68 mmHg Pressure O2 (61-120) Arterial Blood Oxygen Content 13.0 Vol % (12.0-20.0) Arterial Blood 1.3 % (0-4) Carboxyhemoglobin Arterial Blood Methemoglobin 0.6 % (0-2) Blood Gas Hemoglobin 10.0 G/DL (12.0-16.0) Oxygen Delivery Device BiPAP Blood Gas Ventilator Setting [id number] Blood Gas Inspired Oxygen 50 % Test 08/24/16 08/24/16 03:30 03:45 White Blood Count 23.3 TH/MM3 (4.0-11.0) Red Blood Count 3.45 MIL/MM3 (4.50-5.90) Hemoglobin 9.8 GM/DL (13.0-17.0) Hematocrit 29.2 % (39.0-51.0) Mean Corpuscular Volume 84.7 FL (80.0-100.0) Mean Corpuscular Hemoglobin 28.5 PG (27.0-34.0) Mean Corpuscular Hemoglobin 33.6 % Concent (32.0-36.0) Red Cell Distribution Width 19.2 % (11.6-17.2) Platelet Count 251 TH/MM3 (150-450) Mean Platelet Volume 8.6 FL (7.0-11.0) Neutrophils (%) (Auto) 95.3 % (16.0-70.0) Lymphocytes (%) (Auto) 1.6 % (9.0-44.0) Monocytes (%) (Auto) 3.0 % (0.0-8.0) Eosinophils (%) (Auto) 0.0 % (0.0-4.0) Basophils (%) (Auto) 0.1 % (0.0-2.0) Neutrophils # (Auto) 22.2 TH/MM3 (1.8-7.7) Lymphocytes # (Auto) 0.4 TH/MM3 (1.0-4.8) Monocytes # (Auto) 0.7 TH/MM3 (0-0.9) Eosinophils # (Auto) 0.0 TH/MM3 (0-0.4) Basophils # (Auto) 0.0 TH/MM3 (0-0.2) CBC Comment AUTO DIFF Differential Comment AUTO DIFF CONFIRMED Platelet Estimate NORMAL (NORMAL) Platelet Morphology Comment NORMAL (NORMAL) Red Cell Morphology Comment NORMAL (NORMAL) Sodium Level 151 MEQ/L (136-145) Potassium Level 3.5 MEQ/L (3.5-5.1) Chloride Level 112 MEQ/L (98-107) Carbon Dioxide Level 29.1 MEQ/L (21.0-32.0) Anion Gap 10 MEQ/L (5-15) Blood Urea Nitrogen 16 MG/DL (7-18) Creatinine 0.76 MG/DL (0.60-1.30) Estimat Glomerular Filtration 99 ML/MIN (>89) Rate Random Glucose 183 MG/DL (74-106) Calcium Level 7.8 MG/DL (8.5-10.1) Phosphorus Level 2.3 MG/DL (2.5-4.9) Magnesium Level 1.7 MG/DL (1.5-2.5) Total Bilirubin 0.3 MG/DL (0.2-1.0) Aspartate Amino Transf 14 U/L (15-37) (AST/SGOT) Alanine Aminotransferase 13 U/L (12-78) (ALT/SGPT) Alkaline Phosphatase 96 U/L (45-117) Total Creatine Kinase 58 U/L (39-308) Troponin I 0.05 NG/ML (0.02-0.05) B-Type Natriuretic Peptide 4045 PG/ML (0-100) Total Protein 5.1 GM/DL (6.4-8.2) Albumin 1.5 GM/DL (3.4-5.0) Lactic Acid Level 1.2 mmol/L (0.4-2.0) . Result Diagram: 08/24/1632908/24/16 033 Imaging Last 72 hours Impressions Chest X-Ray 3/12/17 0600 Signed Impressions: Service Date/Time: Monday, August 22, 2016 05:08 - CONCLUSION: Persistent right pleural effusion and diffuse infiltrates. Increasing infiltrates in the left lung. Roberto Hanley MD . Procedures 08/19/16: Intubation 08/19/16: Right subclavian central line 08/19/16: Left arterial line 08/19/16: To OR for irrigation and debridement with wound VAC placement 08/21/16: Extubation . Patient/Family Conference Present at Family Conference: Spoke with patient's , Regina, via telephone. Family Conference Location: Telephone Issues Discussed: * Palliative care role, purpose, approach * Additional medical, psychosocial, and spiritual history * Patients general health, functional status, and cognitive changes in the months leading up to the current hospitalization * Patient/family understanding of the current medical problems * Patient/family understanding of prognosis * Patients goals of care as best understood from advance directives and/or conversations and/or values * Current medical treatment options and benefits/burdens of those options * Likely scenarios comparing ongoing aggressive care with a transition to comfort measures only * Questions answered to the best of my ability * Palliative care contact information provided . 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 Orders for morphine 2 mg IV q2 hours PRN 18 scale 610 and Kistler (5325) 1 tablet PO every 4 hours PRN for pain scale 1-5. 24-hour requirements: Kistler x 1; Morphine 1. (2) Dyspnea Comment: Placed on BiPAP overnight. Currently on nonrebreather. Breath sounds diminished with crackles bilaterally. Follow-up chest x-ray on 08/24/16 shows persistent prominent bilateral right greater than left pulmonary parenchymal opacities and bilateral pleural effusions. . (3) Confusion Comment: Confusion may be multifactorial. Possible contributing factors include his history of dementia, infection, dyspnea and delirium related to hospitalization. Patient is currently in soft restraints because he was taking off the nonrebreather mask, disturbing medical care. . Pertinent Non-Medical Issues Psychosocial: Patient is originally from [place]. 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 They have no children together. Per , patient has a daughter with whom he is estranged. Spiritual: Hinduism gabe, attends [employer]. Order placed for equipment service lead consult. Legal: Patient is currently not capacitated to participate in establishing medical treatment goals. Given the patient's current medical condition and acute decline, it is unclear if he will regain this capacity. Per [place] statutes, in the absence of written advanced directives healthcare proxy decision making falls to the patient's (Regina Newby). Ethical issues impacting care: No known ethical issues impacting care. . Important Contacts Regina Newby, spouse: [phone] . Prognosis Patient is a 76-year-old male with a complex medical history. He was hospitalized in September, with gangrenous ulcers on his feet bilaterally. Subsequently on 09/17/15 a left femoral popliteal bypass with endarterectomy done by Dr. Hernandez. The patient sustained a left hip fracture after a fall in April,. Since then he has been rehospitalized twice with recurrent operative wound infections. He developed C. difficile. Patient was transferred to a SNF for rehabilitation at each discharge but continued to decline. Patient appears frail, cachectic. He has had an approximate weight loss of 14 pounds in the past 12 months, started on Marinol status post PEG tube placement in July,. Patient is now bedbound with nonhealing wounds, increased respiratory distress. Patient is disoriented with progressively worsening confusion since April,. Given patient's advanced age, multiple comorbid conditions and his acute decline over the past 4 months, the patient is high risk for continued decline and complications. His overall prognosis is poor and his life expectancy is likely less than 6 months. Patient is hospice appropriate if the patient/family goals become comfort focus. . Code Status: No Code Plan * NO CODEDNR * Decision-making: Patient is currently not capacitated to participate in establishing medical treatment goals. Given the patient's current medical condition and acute decline, it is unclear if he will regain this capacity. Per [place] statutes, in the absence of written advanced directives healthcare proxy decision making falls to the patient's (Regina Newby). * Discussed the process of cardiopulmonary resuscitation at length with patient' s , Regina Newby (i.e. compressions, medications, cardioversion and intubation/mechanical ventilation). We discussed the patient's significant cardiac history along with multiple other comorbid conditions. Patient's verbalizes understanding that CPR would likely cause trauma to the patient who is extremely frail. Patient's stating, "he's been through enough" and requests that if the patient should go into cardiopulmonary arrest he be allowed to pass peacefully and naturally without aggressive intervention. CODE STATUS change to NO CODEDNR. Nurse, Hiral, is aware of CODE STATUS change. * Goals: Goals remain aggressive up to the point of cardiopulmonary resuscitation. * Symptom managementpain: Probable causes of infection include impaired circulation, nonhealing wounds, recurrent infections, recent wound irrigation with debridement, invasiveness lines, immobility, bedbound status. Orders for morphine 2 mg IV q2 hours PRN 18 scale 610 and Kistler ([id number]) 1 tablet PO every 4 hours PRN for pain scale 1-5. Orders to appear to be adequate at this time. 24-hour requirements: Kistler x 1; Morphine 1. Continue to observe for nonverbal signs and symptoms of pain. Palliative care will monitor PRN requirements and make recommendations as indicated. * Symptom managementdyspnea: Increased dyspnea possibly secondary to CHF. Patient has been on furosemide 20 mg BID. He was placed on BiPAP overnight, received furosemide 40mg IV 1 stat. Currently on nonrebreather with oxygen saturations in the low 90s. Breath sounds diminished with crackles bilaterally. Stat f/u chest x-ray on 08/24/16 shows persistent prominent bilateral right greater than left pulmonary parenchymal opacities and bilateral pleural effusions. * Symptom managementconfusion/agitation: Confusion may be multifactorial. Possible contributing factors include his history of dementia, infection, dyspnea and delirium related to hospitalization. Patient is currently in soft restraints because he was taking off the nonrebreather mask, disturbing medical care. Continue to reorient patient regularly and reduce distractions/noise. Silver Solderer has been consulted for support. If patient becomes increasingly agitated, may consider starting Haldol or Lorazepam at 0.5mg PO q6 hours PRN. * Palliative care contact information provided to the patient's , Regina. Tentative family meeting scheduled for 08/26/16 at 3 PM. * Palliative care will continue to follow this patient throughout his hospitalization to establish trust, assist with symptom management and clarification of medical treatment goals. . . Thank you for the opportunity to participate in the care of Mr. Newby. . Attestation To help prompt me to consider important information that might be impacting today's encounter and assessment, information from prior notes written by myself or my colleagues may have been "brought forward" into today's note. My signature on this note, however, is an attestation that I personally performed the exam, history, and/or decision-making noted today, and, unless otherwise indicated, the interactions with patient, family, and staff as well as the review of records all occurred today. I also attest that the listed assessment and stated plan reflect my best clinical judgment today based on the combination of historical information, prior notes, and today's exam/ interactions. When time spent is documented, it refers only to time spent today by the signer, or if indicated, combined time spent today by collaborating physician/nurse practitioner. . Tayler Chahal Aug 24, 2016 10:00
[2016-08-24] MEDS: DRONABINOL 5 MG CAP PO SCH ×2 (11:00→16:00)
[2016-08-24] MEDS: FLUCONAZOLE 400 MG PREMIX BAG 400 ML IV SCH ×2 (11:42→14:29)
[2016-08-24 15:52] LABS: MAGNESIUM 1.7 MG/DL (1.5-2.5); POTASSIUM 3.5 MEQ/L (3.5-5.1)
[2016-08-24] MEDS: SODIUM CHLORIDE 0.9% IV SCH (17:07)
[2016-08-24] MEDS: DAPTOMYCIN IV SCH (17:07)
[2016-08-24] MEDS: TAMSULOSIN HCL 0.4 MG CAP PO SCH (22:16)
[2016-08-24] MEDS: ENOXAPARIN SODIUM 40 MG/0.4 ML SYRINGE SQ SCH (22:16)
[2016-08-25] VITALS (17 sets, daily range): BP systolic 126–156; BP diastolic 46–67; PULSE 68–99; RESP 20–29; TEMP 97.7–98.8; O2SAT 94–99
[2016-08-25] MEDS: RESP: ALBUTEROL 2.5 MG/IPRATROPIUM 0.5 MG NEB (SCH) NEB ×5 (03:17→19:30)
[2016-08-25] MEDS: CHLORHEXIDINE GLUCONATE 2 % 1 PACK (2 CLOTHS) TOP SCH (04:00)
[2016-08-25] MEDS: INSULIN ASPART SUPPLEMENTAL SCALE SQ SCH ×4 (06:00→19:01)
[2016-08-25] MEDS: MAGNESIUM OXIDE 400 MG TAB G-TUBE SCH ×2 (06:36→18:40)
[2016-08-25] MEDS: ZINC SULFATE 220 MG CAP G-TUBE SCH (06:36)
--- NOTE | 2016-08-25 07:35 | EKG ---
Date Performed: 08/24/2016 Time Performed: 04:05:40 PTAGE: 76 years EKG: Sinus rhythm Possible inferior infarct - age undetermined Possible anterior infarct - age undetermined Lateral ST -T changes may be due to myocardial ischemia Compared to the previous tracing ST depressions are more prominent, consider ischemia. Recommend repeat ekg with a better baseline. Abnormal ECG PREVIOUS TRACING : 07/22/2016 15.28 DOCTOR: Ervin Olson Interpretating Date/Time 08/25/2016 07:33:15
[2016-08-25] MEDS: CHLORHEXIDINE 0.12% (ORAL KIT) 15 ML CUP MT SCH (08:00)
[2016-08-25] MEDS: VANCOMYCIN 500 MG VIAL (FOR ORAL USE ONLY) PO SCH ×3 (08:39→18:41)
[2016-08-25] MEDS: FAMOTIDINE 20 MG TAB PO SCH (08:40)
[2016-08-25] MEDS: FUROSEMIDE 20 MG/2 ML VIAL IV PUSH SCH ×2 (08:40→18:40)
[2016-08-25] MEDS: DILTIAZEM HCL 30 MG TAB PO SCH ×3 (08:40→18:40)
[2016-08-25] MEDS: POTASSIUM CHLORIDE 20 MEQ CONTROLLED RELEASE TAB PO SCH (08:40)
[2016-08-25] MEDS: MULTIVITAMINS/MINERALS THERAPEUTIC TAB GT SCH (08:40)
[2016-08-25] MEDS: CLOPIDOGREL 75 MG TAB PO SCH (08:40)
[2016-08-25] MEDS: NYSTATIN SUSP 500,000 U/5 ML CUP SWISH-SWAL SCH ×3 (08:40→18:40)
[2016-08-25] MEDS: METOPROLOL TARTRATE 25 MG TAB PO SCH (08:41)
[2016-08-25] MEDS: SODIUM CHLORIDE 0.9% FLUSH 5 ML FLUSH IVF SCH (08:41)
[2016-08-25] MEDS: ASCORBIC ACID 500 MG TAB G-TUBE SCH (08:41)
[2016-08-25] MEDS: MUPIROCIN 2% OINT 1 APPLIC/GM SYR EACH NARE SCH (08:41)
[2016-08-25] MEDS: DOCUSATE SODIUM 100 MG CAP PO SCH (08:42)
[2016-08-25] MEDS: DRONABINOL 5 MG CAP PO SCH ×2 (11:00→15:19)
[2016-08-25] MEDS: FLUCONAZOLE 400 MG PREMIX BAG 400 ML IV SCH ×2 (12:11→15:18)
[2016-08-25] MEDS: MORPHINE SULFATE 4 MG/ML INJ IV PRN (14:21)
--- NOTE | 2016-08-25 14:38 | HHI.CCPN ---
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 Decubiti have continued due to severe cachexia and deconditioning, and the left hip pocket is infected again. He has severe sepsis manifested by tachycardia, hypothermia, leukocytosis. I have met him in the [facility] immediately following surgery and he has respiratory failure associated with his sepsis; requiring mechanical ventilation. Additional immediate problems include diabetes and dementia. 08/20: Afebrile. Currently on CPAP trials 05/17 at 40%. Awake and following commands Currently being transfuse blood due to anemia postoperatively. Will check this afternoon if extubated unable after blood transfusions. Positive BM yesterday. 08/21: Afebrile. Tolerated CPAP trials overnight. Awake and follows simple commands on ventilator. No bowel movement. He was medically stable. Decreased urine output noted. CVP around 10. 08/24: Critical care reconsult : Called to evaluate patient for worsening respiratory distress. Patient was on 13 L O2 earlier. He was placed on a nonrebreather facemask despite which his O2 sats were in the mid 80s. I evaluated the patient immediately on being notified. He has a history of chronic systolic CHF and has been on Lasix 20 mg twice a day. On evaluation he did have bilateral crackles. Lasix 40 mg IV stat was ordered and patient was initiated on BiPAP with full facemask. Stat labs, CXR ordered and pending. 08/25: Struggling respiratory effort. Meeting with family to discuss hospice. Objective Vital Signs Date Time Temp Pulse Resp B/P Pulse Ox O2 Delivery O2 Flow Rate FiO2 08/25/16 12:00 97.9 73 29 144/57 98 08/25/16 11:49 50 08/25/16 09:00 Bi-Pap 08/25/16 07:00 15.00 Intake and Output 08/24/16 08/24/16 08/25/16 08:00 16:00 00:00 Intake Total 520 ml 1025 ml 778 ml Output Total 725.0 ml 2100.0 ml 1100.0 ml Balance -205.0 ml -1075.0 ml -322.0 ml Result Diagram: 08/24/16 0330 08/25/16 0510 Imaging Last Impressions Renal Ultrasound 08/20/16 0000 Signed Impressions: Service Date/Time: Saturday, August 20, 2016 22:51 - CONCLUSION: 1. Symmetric renal size. No evidence of hydronephrosis. 2. Bilateral pleural effusions and abnormal appearance to the gallbladder with wall thickening and probable stone. Roberto Hanley MD Chest X-Ray 08/19/16 0000 Signed Impressions: Service Date/Time: August 19:33 - CONCLUSION: 1. Endotracheal tube and left subclavian central venous catheter positioned as above. 2. Mild bibasilar consolidation and small effusions not significantly changed. Thor Donahue MD Objective Remarks GENERAL: 76-year-old male, critically ill currently resting in bed, on BiPAP with full face mask SKIN: Bilateral heel ulcers, stage III sacral decubitus ulcer, left hips currently covered. Once a wound over mid sternum noted. New PEG tube is clean dry and intact. HEAD: Atraumatic. Normocephalic. EYES: Pupils equal and round about 3 mm bilaterally and reactive. No scleral icterus. No injection or drainage. ENT: No nasal bleeding or discharge. Mucous membranes pink and moist. NECK: Trachea midline. No JVD. CARDIOVASCULAR: Regular rate and rhythm. S1, S2. No S4. No JVD. RESPIRATORY: Air entry decreased bilaterally at bases, bilateral crackles. On BiPAP with full facemask GASTROINTESTINAL: Abdomen soft, non-tender, nondistended. PEG tube site is clean dry and intact.. MUSCULOSKELETAL: Extremities as above per scan. Noted skin breakdown sacrum/ heel/left hip NEUROLOGICAL: Awake and alert. Disoriented. Moving all 4 extremities spontaneously. Date of Insertion: Aug 19, 2016 Line: Central Venous Catheter Side: Left Location: Subclavian A/P Problem List: (1) Sepsis ICD Code: A41.9 Status: Acute (2) Type 2 diabetes mellitus ICD Code: E11.9 Status: Chronic (3) Leukocytosis ICD Code: D72.829 Status: Acute (4) Left hip prosthetic joint infection ICD Code: T84.52XA Status: Acute (5) Chronic systolic CHF (congestive heart failure) ICD Code: I50.22 Status: Chronic Assessment and Plan Neuro/Psych: Dementia disorder NOS Insomnia Follow neuro status. Currently holding Ambien 5 milligrams at night for insomnia. Continue Marinol 5 mg twice a day for anorexia Acetaminophen for fever CV: Coronary artery disease status post CABG 6 Peripheral vascular disease -history of left femoropopliteal with angioplasty/ stenting Acute on chronic systolic CHF Hypertension Dyslipidemia KVO IV fluids. Lasix 40 mg IV stat to diurese in view of worsening respiratory status.. On Lasix 20 mg IV twice a day, CVP bleeding 2-4 Currently on Cardizem at 30 mg 4 times a day and Lopressor 25 mg twice a day for hypertension. Labetalol 10 mg IV stat for systolic blood pressure in the 140s. Continue Plavix 75 mg by mouth daily for peripheral vascular disease. Continue atorvastatin 20 mg by mouth daily for dyslipidemia Resp: Postoperative respiratory failure Patient placed on BiPAP with full facemask. Follow-up stat chest x-ray. Being diuresed with Lasix. May require endotracheal intubation and mechanical ventilation. Continue bronchodilators. Follow up ABG 1 hour after placing on BiPAP. GI: gAstro Esophageal reflux disease Status post PEG tube Severe protein calorie malnutrition On tube feeding with Glucerna 1.5 goal 50 cc an hour via PEG. Pepcid for GI prophylaxis Colace/as needed Senokot for bowel regimen : BPH UTI [place]eta for accurate I's and O's in critically ill patient Flomax 0.4 milliequivalents by mouth daily has been resumed Endo: Sliding scale insulin Accu-Cheks to maintain euglycemia. Low regimen Renal: Diurese with Lasix. Strict intake output, monitor and replete electro lites, follow BUN/creatinine. Heme: Leukocytosis ABL anemia Follow CBC, transfuse to keep hemoglobin greater than 8 g percent ID: History of MRSA History C. difficile Recent history of Proteus hardware infection on Levaquin 6 weeks Currently on vancomycin 125 mg 4 times a day for C. difficile. To be continued until 2 weeks after Levaquin discontinued Continue IV daptomycin for 420 IV daily per ID Medication Diflucan for mill grams IV daily added 08/20 by ID Pertinent cultures 08/19 - hip -C. albicans 08/18 - wound - MRSA/C. albicans 08/18 - blood cultures 2 - no growth 08/18 - urine - no growth ID consultation for antibiotic management FEN: Hypernatremia Hypopotassemia Hypo-magnesium Replace electrolytes as clinically indicated MSK: Postop day #6 Irrigation and debridement left hip with application of wound VAC /Debridement left ischial decubitus with partial closure and application of wound VAC Dr. Campuzano Stage III sacral decubitus ulcer Stage 2-3 bilateral heel ulcers Seen by Dr. Baptiste 07/30. Recommended Povidine/iodine and zinc oxide cover with Mepilex daily for debridement./iodine Orthophoric postop care. Continue padding for heel ulcers Access - Left subclavian CVL day #6 placed in OR on 08/19 Prophylaxis - GI -Pepcid - DVT - SCD/Lovenox Follow-up stat labs, IV GM chest x-ray. Overall impression: Weak and considerable chronic disability. No chance of recovery to meaningful functional lifestyle. Hospice is highly recommended. Problem Qualifiers (1) Type 2 diabetes mellitus: (2) Leukocytosis: Qualified Code: D72.829 - Leukocytosis, unspecified type Anton Grande MD Aug 25, 2016 14:38
[2016-08-25] MEDS: SODIUM CHLORIDE 0.9% IV SCH (16:54)
[2016-08-25] MEDS: DAPTOMYCIN IV SCH (16:54)
--- NOTE | 2016-08-25 17:25 | HHI.HCPN ---
Reason for visit a. To assist with evaluation and management of symptoms including: pain, confusion, dyspnea b. To assist medical decision maker(s) with: better understanding of current medical conditions; weighing benefits/burdens of medical treatment options; making medical treatment decisions. . (Tayler Chahal) Subjective/Interval History Patient seen and assessed in room 1316. He remains confused, lethargic. Patient is tachypneic with respirations 2429. Respirations are labored, on BiPAP. Oxygen saturations in the low to mid 90s. Patient is being diuresed, on furosemide 2 times daily. Afebrile. Persistent leukocytosis, most recent WBC 23.3. No new cultures pending. Chest x-ray on 08/24/16 showed no significant change with persistent prominent bilateral right greater than left pulmonary parenchymal pasty and bilateral pleural effusions. Patient is tolerating Glucerna 1.5 via PEG tube at 50 mL's per hour. Patient remains extremely weak secondary to deconditioning. Hospice has been consulted and will likely meet with the patient/ later this evening. . Family/friend interactions Spoke with patient's , Regina, via telephone. We discussed patient's continued decline and overall prognosis. Patient's does not want to wait for scheduled meeting with palliative care on 08/26/16 at 3 PM. She has requested to speak with someone from hospice and is considering transitioning to comfort focus care. . (Tayler Chahal) Advance Directives Advance Directive Specifics Health Care Surrogate(s): Not applicable . Documented care wishes: No documented care wishes have been completed. . Significant change in goals: Patient's is considering transitioning to comfort focused care, hospice has been consulted. . (Tayler Chahal) Objective Vital Signs Date Time Temp Pulse Resp B/P Pulse Ox O2 Delivery O2 Flow Rate FiO2 08/25/16 15:44 97 50 08/25/16 15:40 91 Bi-Pap 40 08/25/16 14:00 70 08/25/16 13:00 99 Non-Rebreather 15.00 100 08/25/16 12:00 97.9 73 29 144/57 98 08/25/16 12:00 73 08/25/16 11:49 99 50 08/25/16 10:00 68 08/25/16 09:00 99 Bi-Pap 50 08/25/16 08:00 73 08/25/16 08:00 97.7 70 24 128/46 99 08/25/16 07:40 91 Bi-Pap 60 08/25/16 07:35 94 08/25/16 07:00 95 Non-Rebreather 15.00 100 08/25/16 06:00 74 08/25/16 04:08 98 40 08/25/16 04:00 74 08/25/16 04:00 98.1 99 24 136/46 99 08/25/16 02:00 75 08/25/16 01:04 98 40 08/25/16 00:00 74 08/25/16 00:00 98.8 74 24 126/48 99 08/24/16 22:00 88 08/24/16 20:00 82 08/24/16 20:00 98.4 82 26 150/58 100 08/24/16 19:34 99 40 08/24/16 19:00 99 Bi-Pap 40 08/24/16 18:00 95 Intake & Output 08/25/16 08/25/16 07:00 19:00 Intake Total 1154 ml 860 ml Output Total 1600.0 ml 1300 ml Balance -446.0 ml -440 ml IV Total 532 ml 304 ml Tube Feeding 622 ml 436 ml Tube Irrigant 120 ml Output Urine Total 1500 ml 1250 ml Tube Feeding Residual Discard 0 ml 0 ml Drainage Total 100 ml 50 ml # Bowel Movements 150 10 . Physical Exam CONSTITUTIONAL/GENERAL: This is a cachectic, elderly male patient in moderate respiratory distress. TUBES/LINES/DRAINS: NRB, Right subclavian central line, art line, rectal tube, Arrieta catheter, soft restraints, PEG tube, wound VAC SKIN: . Ecchymoses on upper extremities. Multiple nonhealing wounds. Skin temperature appropriate. Not diaphoretic. HEAD: Atraumatic. Normocephalic. EYES: Pupils equal and round and reactive.No scleral icterus. No injection or drainage. Fundi not examined. ENT: Hearing grossly normal. Nose without bleeding or purulent drainage. NECK: Trachea midline. Supple, nontender. No palpable thyroid enlargement or nodularity. CARDIOVASCULAR: Regular rate and rhythm without murmurs, gallops, or rubs. No JVD. Peripheral pulses symmetric. RESPIRATORY/CHEST: Tachypneic on BiPAP, full mask. Breath sounds diminished, crackles bilaterally. GASTROINTESTINAL: Abdomen soft, non-tender, nondistended. PEG tube site C/D/I. GENITOURINARY: Without palpable bladder distension. Arrieta catheter in place. MUSCULOSKELETAL: Extremities without clubbing, cyanosis, or edema. Multiple areas of skin breakdown noted. LYMPHATICS: No palpable cervical or supraclavicular adenopathy. NEUROLOGICAL: Patient is remains confused. Needs frequent verbal reinforcement and frequent reassessment. PSYCHIATRIC: Disoriented, confused. . (Tayler Chahal) Diagnostic Tests Laboratory Laboratory Tests Test 08/23/16 08/24/16 08/24/16 08/24/16 03:30 03:29 03:30 03:45 White Blood Count 23.4 TH/MM3 23.3 TH/MM3 (4.0-11.0) (4.0-11.0) Red Blood Count 3.48 MIL/MM3 3.45 MIL/MM3 (4.50-5.90) (4.50-5.90) Hemoglobin 9.6 GM/DL 9.8 GM/DL (13.0-17.0) (13.0-17.0) Hematocrit 29.5 % 29.2 % (39.0-51.0) (39.0-51.0) Mean Corpuscular Volume 84.7 FL 84.7 FL (80.0-100.0) (80.0-100.0) Mean Corpuscular Hemoglobin 27.4 PG 28.5 PG (27.0-34.0) (27.0-34.0) Mean Corpuscular Hemoglobin 32.4 % 33.6 % Concent (32.0-36.0) (32.0-36.0) Red Cell Distribution Width 19.2 % 19.2 % (11.6-17.2) (11.6-17.2) Platelet Count 239 TH/MM3 251 TH/MM3 (150-450) (150-450) Mean Platelet Volume 8.6 FL 8.6 FL (7.0-11.0) (7.0-11.0) Neutrophils (%) (Auto) 92.8 % 95.3 % (16.0-70.0) (16.0-70.0) Lymphocytes (%) (Auto) 3.1 % 1.6 % (9.0-44.0) (9.0-44.0) Monocytes (%) (Auto) 4.0 % (0.0-8.0) 3.0 % (0.0-8.0) Eosinophils (%) (Auto) 0.0 % (0.0-4.0) 0.0 % (0.0-4.0) Basophils (%) (Auto) 0.1 % (0.0-2.0) 0.1 % (0.0-2.0) Neutrophils # (Auto) 21.7 TH/MM3 22.2 TH/MM3 (1.8-7.7) (1.8-7.7) Lymphocytes # (Auto) 0.7 TH/MM3 0.4 TH/MM3 (1.0-4.8) (1.0-4.8) Monocytes # (Auto) 0.9 TH/MM3 0.7 TH/MM3 (0-0.9) (0-0.9) Eosinophils # (Auto) 0.0 TH/MM3 0.0 TH/MM3 (0-0.4) (0-0.4) Basophils # (Auto) 0.0 TH/MM3 0.0 TH/MM3 (0-0.2) (0-0.2) CBC Comment DIFF FINAL AUTO DIFF Differential Comment AUTO DIFF CONFIRMED Sodium Level 147 MEQ/L 151 MEQ/L (136-145) (136-145) Potassium Level 3.5 MEQ/L 3.5 MEQ/L (3.5-5.1) (3.5-5.1) Chloride Level 114 MEQ/L 112 MEQ/L (98-107) (98-107) Carbon Dioxide Level 26.3 MEQ/L 29.1 MEQ/L (21.0-32.0) (21.0-32.0) Anion Gap 7 MEQ/L (5-15) 10 MEQ/L (5-15) Blood Urea Nitrogen 12 MG/DL (7-18) 16 MG/DL (7-18) Creatinine 0.73 MG/DL 0.76 MG/DL (0.60-1.30) (0.60-1.30) Estimat Glomerular Filtration 104 ML/MIN 99 ML/MIN (>89) Rate (>89) Random Glucose 137 MG/DL 183 MG/DL (74-106) (74-106) Calcium Level 7.5 MG/DL 7.8 MG/DL (8.5-10.1) (8.5-10.1) Blood Gas Puncture Site ART LINE Blood Gas Patient Temperature 98.6 Blood Gas HCO3 27 mmol/L (22-26) Blood Gas Base Excess 3.7 mmol/L (-2-2) Blood Gas Oxygen Saturation 93 % (90-100) Arterial Blood pH 7.46 (7.380-7.420) Arterial Blood Partial 39 mmHg (38-42) Pressure CO2 Arterial Blood Partial 68 mmHg Pressure O2 (61-120) Arterial Blood Oxygen Content 13.0 Vol % (12.0-20.0) Arterial Blood 1.3 % (0-4) Carboxyhemoglobin Arterial Blood Methemoglobin 0.6 % (0-2) Blood Gas Hemoglobin 10.0 G/DL (12.0-16.0) Oxygen Delivery Device BiPAP Blood Gas Ventilator Setting IPAP15/[id number] Blood Gas Inspired Oxygen 50 % Platelet Estimate NORMAL (NORMAL) Platelet Morphology Comment NORMAL (NORMAL) Red Cell Morphology Comment NORMAL (NORMAL) Phosphorus Level 2.3 MG/DL (2.5-4.9) Magnesium Level 1.7 MG/DL (1.5-2.5) Total Bilirubin 0.3 MG/DL (0.2-1.0) Aspartate Amino Transf 14 U/L (15-37) (AST/SGOT) Alanine Aminotransferase 13 U/L (12-78) (ALT/SGPT) Alkaline Phosphatase 96 U/L (45-117) Total Creatine Kinase 58 U/L (39-308) Troponin I 0.05 NG/ML (0.02-0.05) B-Type Natriuretic Peptide 4045 PG/ML (0-100) Total Protein 5.1 GM/DL (6.4-8.2) Albumin 1.5 GM/DL (3.4-5.0) Lactic Acid Level 1.2 mmol/L (0.4-2.0) Test 08/24/16 08/25/16 14:43 05:10 Potassium Level 3.5 MEQ/L 3.7 MEQ/L (3.5-5.1) (3.5-5.1) Phosphorus Level 3.4 MG/DL (2.5-4.9) Magnesium Level 1.7 MG/DL (1.5-2.5) Total Creatine Kinase 67 U/L (39-308) Troponin I 0.06 NG/ML (0.02-0.05) . (Tayler Chahal) Result Diagram: 08/24/16 0330 08/25/16 0510 Procedures 08/19/16: Intubation 08/19/16: Right subclavian central line 08/19/16: Left arterial line 08/19/16: To OR for irrigation and debridement with wound VAC placement 08/21/16: Extubation . 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 Orders for morphine 2 mg IV q2 hours PRN 18 scale 610 and [place] (5325) 1 tablet PO every 4 hours PRN for pain scale 1-5. 24-hour requirements: [place] x 1; Morphine 1. (2) Dyspnea Comment: Patient with worsening respiratory distress, tachypneic. Has been placed on BiPAP. Breath sounds diminished with crackles bilaterally. Follow- up chest x-ray on 08/24/16 shows persistent prominent bilateral right greater than left pulmonary parenchymal opacities and bilateral pleural effusions. . (3) Confusion Comment: Confusion may be multifactorial. Possible contributing factors include his history of dementia, infection, dyspnea and delirium related to hospitalization. Patient is currently in soft restraints because he was taking off the nonrebreather mask, disturbing medical care. . Pertinent Non-Medical Issues Psychosocial: Patient is originally from [place]. 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 Patient his current , Regina in 1998. They have no children together. Per , patient has a daughter with whom he is estranged. Spiritual: [employer] gabe, attends [employer]. Order placed for second vp hr assessment consult. Legal: Patient is currently not capacitated to participate in establishing medical treatment goals. Given the patient's current medical condition and acute decline, it is unclear if he will regain this capacity. Per [place] statutes, in the absence of written advanced directives healthcare proxy decision making falls to the patient's (Regina Newby). Ethical issues impacting care: No known ethical issues impacting care. . Important Contacts Regina Newby, spouse: [phone] . Prognosis Patient is a 76-year-old male with a complex medical history. He was hospitalized in September, with gangrenous ulcers on his feet bilaterally. Subsequently on 09/17/15 a left femoral popliteal bypass with endarterectomy done by Dr. Hernandez. The patient sustained a left hip fracture after a fall in April,. Since then he has been rehospitalized twice with recurrent operative wound infections. He developed C. difficile. Patient was transferred to a SNF for rehabilitation at each discharge but continued to decline. Patient appears frail, cachectic. He has had an approximate weight loss of 14 pounds in the past 12 months, started on Marinol status post PEG tube placement in July,. Patient is now bedbound with nonhealing wounds, increased respiratory distress. Patient is disoriented with progressively worsening confusion since April,. Given patient's advanced age, multiple comorbid conditions and his acute decline over the past 4 months, the patient is high risk for continued decline and complications. His overall prognosis is poor and his life expectancy is likely less than 6 months. Patient is hospice appropriate if the patient/family goals become comfort focus. . Code Status: No Code Plan * NO CODEDNR * Decision-making: Patient is currently not capacitated to participate in establishing medical treatment goals. Given the patient's current medical condition and acute decline, it is unclear if he will regain this capacity. Per [place] statutes, in the absence of written advanced directives healthcare proxy decision making falls to the patient's (Regina Newby). * Goals: Considering transition to comfort focus care. * Symptom managementpain: Probable causes of infection include impaired circulation, nonhealing wounds, recurrent infections, recent wound irrigation with debridement, invasiveness lines, immobility, bedbound status. Orders for morphine 2 mg IV q2 hours PRN 18 scale 610 and [place] (5325) 1 tablet PO every 4 hours PRN for pain scale 1-5. Orders to appear to be adequate at this time. 24-hour requirements: Morphine 1. Continue to observe for nonverbal signs and symptoms of pain. Palliative care will monitor PRN requirements and make recommendations as indicated. * Symptom managementdyspnea: Increased dyspnea possibly secondary to CHF. Patient is currently on BiPAP secondary to worsening respiratory distress, being diuresed. Breath sounds diminished with crackles bilaterally. Stat f/u chest x-ray on 08/24/16 shows persistent prominent bilateral right greater than left pulmonary parenchymal opacities and bilateral pleural effusions. * Symptom managementconfusion/agitation: Confusion may be multifactorial. Possible contributing factors include his history of dementia, infection, dyspnea and delirium related to hospitalization. Patient is currently in soft restraints because he was taking off the nonrebreather mask, disturbing medical care. Continue to reorient patient regularly and reduce distractions/noise. [employer] [facility] has been consulted for support. If patient becomes increasingly agitated, may consider starting Haldol or Lorazepam at 0.5mg PO q6 hours PRN. * Spoke with patient's , Regina, via telephone. We discussed patient's continued decline and overall prognosis. Patient's does not want to wait for scheduled meeting with palliative care on 08/26/16 at 3 PM. She has requested to speak with someone from hospice and is considering transitioning to comfort focus care. Hospice consult ordered. Spoke with Meena at hospice intake, discussed with Dr. Ding. * Palliative care will continue to follow this patient throughout his hospitalization to establish trust, assist with symptom management and clarification of medical treatment goals. . . (Tayler Chahal) Attestation To help prompt me to consider important information that might be impacting today's encounter and assessment, information from prior notes written by myself or my colleagues may have been "brought forward" into today's note. My signature on this note, however, is an attestation that I personally performed the exam, history, and/or decision-making noted today, and, unless otherwise indicated, the interactions with patient, family, and staff as well as the review of records all occurred today. I also attest that the listed assessment and stated plan reflect my best clinical judgment today based on the combination of historical information, prior notes, and today's exam/ interactions. When time spent is documented, it refers only to time spent today by the signer, or if indicated, combined time spent today by collaborating physician/nurse practitioner. . (Tayler Chahal) Collaborating MD Comments Chart reviewed. Cased discussed with palliative care ALUM OPERATOR. Above ALUM OPERATOR note reviewed and I concur. . (Porter Drew MD) Tayler Chahal Aug 25, 2016 17:24 Porter Drew MD November 08, 2016 13:10
--- NOTE | 2016-08-25 18:41 | PD.TRANSFR ---
Transfer Summary Admission Date Aug 18, 2016 at 20:30 Transfer Date: Aug 25, 2016 Admitting Diagnosis postoperative wound infection left hip, leukocytosis, anemia Diagnoses: (1) Left hip prosthetic joint infection Diagnosis: Principal (2) Abnormal urinalysis Diagnosis: Secondary (3) Type 2 diabetes mellitus Diagnosis: Secondary (4) PVD (peripheral vascular disease) Diagnosis: Secondary (5) HTN (hypertension) Diagnosis: Secondary (6) Anemia Diagnosis: Secondary Procedures Drainage Left hip wound Significant Findings Laboratory Tests Test 08/23/16 08/24/16 08/24/16 08/24/16 03:30 03:29 03:30 14:43 White Blood Count 23.4 TH/MM3 23.3 TH/MM3 (4.0-11.0) (4.0-11.0) Red Blood Count 3.48 MIL/MM3 3.45 MIL/MM3 (4.50-5.90) (4.50-5.90) Hemoglobin 9.6 GM/DL 9.8 GM/DL (13.0-17.0) (13.0-17.0) Hematocrit 29.5 % 29.2 % (39.0-51.0) (39.0-51.0) Red Cell Distribution Width 19.2 % 19.2 % (11.6-17.2) (11.6-17.2) Neutrophils (%) (Auto) 92.8 % 95.3 % (16.0-70.0) (16.0-70.0) Lymphocytes (%) (Auto) 3.1 % 1.6 % (9.0-44.0) (9.0-44.0) Neutrophils # (Auto) 21.7 TH/MM3 22.2 TH/MM3 (1.8-7.7) (1.8-7.7) Lymphocytes # (Auto) 0.7 TH/MM3 0.4 TH/MM3 (1.0-4.8) (1.0-4.8) Sodium Level 147 MEQ/L 151 MEQ/L (136-145) (136-145) Chloride Level 114 MEQ/L 112 MEQ/L (98-107) (98-107) Random Glucose 137 MG/DL 183 MG/DL (74-106) (74-106) Calcium Level 7.5 MG/DL 7.8 MG/DL (8.5-10.1) (8.5-10.1) Blood Gas HCO3 27 mmol/L (22-26) Blood Gas Base Excess 3.7 mmol/L (-2-2) Arterial Blood pH 7.46 (7.380-7.420) Blood Gas Hemoglobin 10.0 G/DL (12.0-16.0) Phosphorus Level 2.3 MG/DL (2.5-4.9) Aspartate Amino Transf 14 U/L (15-37) (AST/SGOT) B-Type Natriuretic Peptide 4045 PG/ML (0-100) Total Protein 5.1 GM/DL (6.4-8.2) Albumin 1.5 GM/DL (3.4-5.0) Troponin I 0.06 NG/ML (0.02-0.05) Transfer Summary Severely debilitated elderly man with ischial decubitus and hip infection. Deteriorating rapidly and electing Hospice Care. Proposed Disposition: Hospice/ Home Anton Grande MD Aug 25, 2016 18:41
--- NOTE | 2016-09-07 19:33 | PQ ---
Physician Query Response Document PATIENT: MINDY GOMEZ : 1940 ADMIT DATE: 08/18/2016 8:30 PM DISCH DATE: 08/25/2016 9:37 PM RESPONDING PROVIDER #: Virgil QUERY TEXT: Debridement Type Based on your medical judgment, can you further clarify the precise nature, depth, extent, and/or met hods of wound debridement utilized in this case, such as: --EXCISIONAL debridement --NON-EXCISIONAL debridement --Other debridement --Other Specify Based on your medical judgment, can you further clarify the specific structures debrided such as: --Skin --Subcutaneous tissue/Fascia --Muscle //SPECIFY MUSCLE --Other Specify If you have any additional questions/comments and/or concerns please call [employer] Hotline [email or web address] [phone] The patient's Clinical Indicators include: Dr. GAGNON, per op report of 08/19/16 patients previous operative wound was debrided including muscle. please reveiw the question below and answer to the best of your ability THANK YOU Query created by: Kyle Khalil on 08/26/2016 12:52 PM RESPONSE TEXT: As documented on op note: included skin, subcutaneous tissue and muscle/fascia Electronically signed by: Luke Gagnon MD 09/07/2016 7:29 PM
--- NOTE | 2016-09-13 11:14 | HHI.DS ---
Discharge Summary Admission Date Aug 18, 2016 at 20:30 Discharge Date: Aug 25, 2016 Admitting Diagnosis postoperative wound infection left hip, leukocytosis, anemia (1) Left hip prosthetic joint infection ICD Code: T84.52XA Diagnosis: Principal (2) Abnormal urinalysis ICD Code: R82.90 Diagnosis: Secondary (3) Type 2 diabetes mellitus ICD Code: E11.9 Diagnosis: Secondary (4) PVD (peripheral vascular disease) ICD Code: I73.9 Diagnosis: Secondary (5) HTN (hypertension) ICD Code: I10 Diagnosis: Secondary (6) Anemia ICD Code: D64.9 Diagnosis: Secondary Procedures Drainage Left hip wound Brief History Mr. Newby is a 76-year-old male with a past medical history of Alzheimers dementia, type 2 diabetes mellitus, diabetic foot ulcers, hypertension, PVD, and left hip prosthesis infection, and CAD who presented from a local half-way for evaluation of reinfected left hip prosthesis. He had a hip fracture after a fall at home with surgical repair on 05/24/[address] Camupzano. Hospitalization went from May 08, 2016 through May 28, 2016. He was readmitted for prosthesis infection and was hospitalized from July 12 through August 12. Left hip resection arthroplasty was performed 08/03/[address] Campuzano. Left hip had MRSA isolated from surgical wound and right heel cellulitis. The patient is seen in the emergency room. Upon arrival in the room, he is noted to have blood on his left upper arm and has removed his PICC line. He is confused and unable to provide a reliable history. History is taken therefore from electronic medical record and from records that were reviewed from the fdc facility. The patient was discharged to a fdc facility on August 12 and had been placed on oral Levaquin for the left hip infection and oral vancomycin for C. difficile colitis diagnosed during the last hospital stay. While at the SNF, the staff at the facility started to notice yellow drainage coming from the left hip wound site and referred him to the emergency room for evaluation. . PE at Discharge GENERAL: ill and cachectic looking- CARDIOVASCULAR: Regular rate and regular rhythm without murmurs, gallops, or rubs. RESPIRATORY: sounds congested with some wheezing GASTROINTESTINAL: Abdomen soft, non-tender, nondistended. Normal, active bowel sounds MUSCULOSKELETAL: Extremities without clubbing, cyanosis, or edema. NEURO: awake and alert Transfer Summary Patient is a 76-year-old male with a complex medical history. He was hospitalized in September, with gangrenous ulcers on his feet bilaterally. Subsequently on 09/17/15 a left femoral popliteal bypass with endarterectomy done by Dr. Hernandez. The patient sustained a left hip fracture after a fall in April,. Since then he has been rehospitalized twice with recurrent operative wound infections. He developed C. difficile. Patient was transferred to a SNF for rehabilitation at each discharge but continued to decline. Patient appears frail, cachectic. He has had an approximate weight loss of 14 pounds in the past 12 months, started on Marinol status post PEG tube placement in July,. Patient is now bedbound with nonhealing wounds, increased respiratory distress. Patient is disoriented with progressively worsening confusion since April,. Given patient's advanced age, multiple comorbid conditions and his acute decline over the past 4 months, the patient is high risk for continued decline and complications. His overall prognosis is poor and his life expectancy is likely less than 6 months. Patient is hospice appropriate if the patient/family goals become comfort focus. Basically, a severely debilitated elderly man with ischial decubitus and hip infection. Deteriorating rapidly and electing Hospice Care. [facility], 08/25/16 Hospital Course Due to decubitus ulceration, this 76 y/o man had developed left prosthetic hip MRSA infection requiring removal of hardware and Girdlestone procedure. Decubiti have continued due to severe cachexia and deconditioning, and the left hip pocket is infected again. He has severe sepsis manifested by tachycardia, hypothermia, leukocytosis. I have met him in the [facility] immediately following surgery and he has respiratory failure associated with his sepsis; requiring mechanical ventilation. Additional immediate problems include diabetes and dementia. 08/20: Afebrile. Currently on CPAP trials 05/17 at 40%. Awake and following commands Currently being transfuse blood due to anemia postoperatively. Will check this afternoon if extubated unable after blood transfusions. Positive BM yesterday. 08/21: Afebrile. Tolerated CPAP trials overnight. Awake and follows simple commands on ventilator. No bowel movement. He was medically stable. Decreased urine output noted. CVP around 10. 08/24: Critical care reconsult : Called to evaluate patient for worsening respiratory distress. Patient was on 13 L O2 earlier. He was placed on a nonrebreather facemask despite which his O2 sats were in the mid 80s. I evaluated the patient immediately on being notified. He has a history of chronic systolic CHF and has been on Lasix 20 mg twice a day. On evaluation he did have bilateral crackles. Lasix 40 mg IV stat was ordered and patient was initiated on BiPAP with full facemask. Stat labs, CXR ordered and pending. 08/25: Struggling respiratory effort. Meeting with family to discuss hospice. Pt Condition on Discharge: Deteriorating Discharge Disposition: Hospice/ Home Anton Grande MD Sep 13, 2016 11:14
== END 2016-08-25 21:37 | disposition hospice, home (50) | DRG 939 ==
LOC: NEPE 17:43 → NEDA 20:30 → NEDH 08-19 00:43 → N04A 08-19 13:33 → N03B 08-19 20:12
PROVIDERS: ADMIT Internal Medicine Critical Care Medicine; ATTEND Internal Medicine Critical Care Medicine
PROC: 0HD6XZZ Extraction of Back Skin, External Approach (ICD-10-PCS; 2016-08-19)
PROC: 5A1945Z Respiratory Ventilation, 24-96 Consecutive Hours (ICD-10-PCS; 2016-08-19)
PROC: 0JDM0ZZ Extraction of Left Upper Leg Subcutaneous Tissue and Fascia, Open Approach (ICD-10-PCS; principal; 2016-08-19 16:54)
PROC: 30233N1 Transfusion of Nonautologous Red Blood Cells into Peripheral Vein, Percutaneous Approach (ICD-10-PCS; 2016-08-20)
PROC: 0T9B70Z Drainage of Bladder with Drainage Device, Via Natural or Artificial Opening (ICD-10-PCS; 2016-08-22)
PROC: 5A09357 Assistance with Respiratory Ventilation, Less than 24 Consecutive Hours, Continuous Positive Airway Pressure (ICD-10-PCS; 2016-08-24)
DX: T84.52XD Infection and inflammatory reaction due to internal left hip prosthesis, subsequent encounter (principal); A41.9 Sepsis, unspecified organism; R65.20 Severe sepsis without septic shock; J95.821 Acute postprocedural respiratory failure; E43 Unspecified severe protein-calorie malnutrition; J18.9 Pneumonia, unspecified organism; L89.329 Pressure ulcer of left buttock, unspecified stage; E87.0 Hyperosmolality and hypernatremia; L89.153 Pressure ulcer of sacral region, stage 3; R64 Cachexia; L97.419 Non-pressure chronic ulcer of right heel and midfoot with unspecified severity; L97.429 Non-pressure chronic ulcer of left heel and midfoot with unspecified severity; I50.22 Chronic systolic (congestive) heart failure; D62 Acute posthemorrhagic anemia; I42.9 Cardiomyopathy, unspecified; G30.9 Alzheimer's disease, unspecified; F02.80 Dementia in other diseases classified elsewhere, unspecified severity, without behavioral disturbance, psychotic disturbance, mood disturbance, and anxiety; E11.621 Type 2 diabetes mellitus with foot ulcer; Y79.2 Prosthetic and other implants, materials and accessory orthopedic devices associated with adverse incidents; I10 Essential (primary) hypertension; Z74.01 Bed confinement status; I25.10 Atherosclerotic heart disease of native coronary artery without angina pectoris; Z86.73 Personal history of transient ischemic attack (TIA), and cerebral infarction without residual deficits; H91.90 Unspecified hearing loss, unspecified ear; F17.210 Nicotine dependence, cigarettes, uncomplicated; B95.62 Methicillin resistant Staphylococcus aureus infection as the cause of diseases classified elsewhere; Z93.1 Gastrostomy status; Z95.1 Presence of aortocoronary bypass graft; Z86.14 Personal history of Methicillin resistant Staphylococcus aureus infection; I73.9 Peripheral vascular disease, unspecified; Z79.4 Long term (current) use of insulin; E78.5 Hyperlipidemia, unspecified; E87.6 Hypokalemia; G47.00 Insomnia, unspecified; Z86.19 Personal history of other infectious and parasitic diseases; I48.91 Unspecified atrial fibrillation; K21.9 Gastro-esophageal reflux disease without esophagitis; N40.0 Benign prostatic hyperplasia without lower urinary tract symptoms; Z51.5 Encounter for palliative care; Z66 Do not resuscitate; Z78.1 Physical restraint status
CPT/HCPCS: 36430; 71010; 76775; 80048; 80053; 80202; 81001; 82550; 82570; 82805; 82948; 83605; 83735; 83880; 84100; 84132; 84155; 84300; 84484; 85014; 85018; 85025; 85027; 86403; 86850; 86900; 86901; 86920; 87015; 87040; 87070; 87086; 87102; 87106; 87116; 87147; 87186; 87205; 87206; 87641; 93005; 94002; 94003; 94150; 94640; 94664; 96361; 96374; J0171; J0878; J1450; J1580; J1650; J1815; J1940; J2270; J2370; J2405; J2543; J2710; J3010; J3370; J3475; J3480; J7030; J7050; J7120; P9016; P9047